=== PATIENT | female | born 1980 | race Caucasian/White ===

== ENCOUNTER 2016-09-16 14:57 | Emergency (ER) | payer OTHER ==
[~2016-09-16] VITALS: Ht 170.2 cm; Wt 91.2 kg
[2016-09-16 15:07] VITALS: BP 106/60
--- NOTE | 2016-09-16 15:33 | PHYS DOC ---
Past Medical History Past Medical History: No Pertinent History Past Surgical History: No Surgical History Alcohol Use: Occasionally Drug Use: None Adult General Chief Complaint Chief Complaint: SORE THROAT HPI HPI Patient is a 36 year old female who presents with sore throat since yesterday. Patient is also complaining of subjective fevers. Review of Systems Review of Systems Constitutional: Subjective fevers Eyes: Denies change in visual acuity, redness, or eye pain [] HENT: sore throat [] Respiratory: Denies cough or shortness of breath [] Cardiovascular: No additional information not addressed in HPI [] GI: Denies abdominal pain, nausea, vomiting, bloody stools or diarrhea [] : Denies dysuria or hematuria [] Musculoskeletal: Denies back pain or joint pain [] Integument: Denies rash or skin lesions [] Neurologic: Denies headache, focal weakness or sensory changes [] Endocrine: Denies polyuria or polydipsia [] Current Medications Current Medications Current Medications Medications (Trade) Dose Ordered Sig/Sanna Start Time Stop Time Status Last Admin Dose Admin Dexamethasone Sodium Phosphate (Decadron) 10 mg 1X ONCE 09/16/16 15:45 09/16/16 15:46 Penicillin G Benzathine (Bicillin L-A) 1,200,000 unit 1X ONCE 09/16/16 15:45 09/16/16 15:46 Allergies Allergies Allergies Coded Allergies Type Severity Reaction Last Updated Verified No Known Drug Allergies 09/16/16 No Physical Exam Physical Exam Constitutional: Well developed, well nourished, no acute distress, non-toxic appearance. [] HENT: Normocephalic, atraumatic, bilateral external ears normal, oropharynx moist, no oral exudates, nose normal. [] posterior pharynx with mild erythema and exudate Eyes: PERRLA, EOMI, conjunctiva normal, no discharge. [] Neck: Normal range of motion, no tenderness, supple, no stridor. [] Cardiovascular:Heart rate regular rhythm, no murmur [] Lungs & Thorax: Bilateral breath sounds clear to auscultation [] Abdomen: Bowel sounds normal, soft, no tenderness, no masses, no pulsatile masses. [] Skin: Warm, dry, no erythema, no rash. [] Back: No tenderness, no CVA tenderness. [] Extremities: No tenderness, no cyanosis, no clubbing, ROM intact, no edema. [] Neurologic: Alert and oriented X 3, normal motor function, normal sensory function, no focal deficits noted. [] Psychologic: Affect normal, judgement normal, mood normal. [] Current Patient Data Vital Signs Vital Signs Date Time Temp Pulse Resp B/P (MAP) Pulse Ox O2 Delivery O2 Flow Rate FiO2 09/16/16 15:07 97.6 79 18 98 Room Air 97.6 EKG EKG [] Radiology/Procedures Radiology/Procedures [] Course & Med Decision Making Course & Med Decision Making Pertinent Labs and Imaging studies reviewed. (See chart for details) Patient is in the ED with pharyngitis. She was given Bicillin shot and Decadron. Tylenol recommended every 4 Motrin every 6 hours as needed for fever. Follow-up with primary care doctor in one week. Dragon Disclaimer Dragon Disclaimer This electronic medical record was generated, in whole or in part, using a voice recognition dictation system. Departure Departure Impression: Primary Impression: Acute bacterial pharyngitis Additional Impression: Fever Disposition: 01 HOME, SELF-CARE Condition: STABLE Referrals: NO PCP (PCP) Follow-up with the primary care doctor in 1-2 weeks Patient Instructions: Fever, Adult, Viral and Bacterial Pharyngitis Additional Instructions: You were seen for pharyngitis. Use saltwater gargles. Take Tylenol or Motrin for pain or fever. Follow-up with the primary care doctor in 1-2 weeks. Please come back to the ED if symptoms worsen. Problem Qualifiers Additional Impression: Fever Fever type: unspecified Qualified Codes: R50.9 - Fever, unspecified MUTUNGAVIKI [employer] Sep 16, 2016 15:33
[2016-09-16] MEDS ORDERED: DEXAMETHASONE SOD PHOS 20 MG/5 ML VIAL. IM ONE (15:45)
[2016-09-16] MEDS ORDERED: PENICILLIN G BENZATHINE LA 1,200,000 UNIT/2 ML DISP.SYRIN. IM ONE (15:45)
== END 2016-09-16 15:39 | disposition home or self-care (01) ==
LOC: ER 14:57
DX: J02.8 Acute pharyngitis due to other specified organisms (principal); B96.89 Other specified bacterial agents as the cause of diseases classified elsewhere; R50.9 Fever, unspecified
CPT/HCPCS: 96372; 99284; J0561; J1100

== ENCOUNTER → 2017-03-18 | Outpatient (CLI) | payer OTHER | END | disposition home or self-care (01) | LOC: SPEC 16:09 | DX: N93.9 Abnormal uterine and vaginal bleeding, unspecified (principal) | CPT/HCPCS: 87623; 88175 ==

== ENCOUNTER → 2017-03-18 | Outpatient (CLI) | payer OTHER ==
[2017-03-18 13:10] LABS: ALBUMIN 3.9 g/dL (3.4-5.0); CALCIUM 9.1 mg/dL (8.5-10.1); CREATININE 0.8 mg/dL (0.6-1.0); GFR 80.7; POTASSIUM 3.9 mmol/L (3.5-5.1); TOTAL BILIRUBIN 0.3 mg/dL (0.2-1.0); TOTAL PROTEIN 7.8 g/dL (6.4-8.2)
[2017-03-18 13:20] LABS: BASO % 0 % (0-3); EOS % 1 % (0-3); HEMATOCRIT 37.9 % (36.0-47.0); HEMOGLOBIN 12.7 g/dL (12.0-15.5); LYMPH # 2.2 x10^3/uL (1.0-4.8); LYMPH % 22 % (24-48); MEAN CORPUSCULAR HEMOGLOBIN 29 pg (25-35); MEAN CORPUSCULAR HGB CONC 34 g/dL (31-37); MEAN CORPUSCULAR VOLUME 86 fL (79-100); MONO % 6 % (0-9); NEUT % 71 % (31-73); PLATELET COUNT 310 x10^3/uL (140-400); RED BLOOD COUNT 4.42 x10^6/uL (3.50-5.40); RED CELL DISTRIBUTION WIDTH 13.5 % (11.5-14.5)
[2017-03-18 14:03] LABS: FREE T4 0.95 ng/dL (0.76-1.46)
--- NOTE | 2017-03-18 17:19 | RAD ---
Pelvic ultrasound to include transabdominal and transvaginal imaging 03/18/2017 Clinical history: Abnormal uterine bleeding. Technique: Using the distended urinary bladder as a sonographic window, a real-time ultrasound examination of the pelvis was performed. Additionally in attempt to better evaluate the uterus and adnexa, a transvaginal ultrasound study was performed. Multiple images were obtained. Findings: Comparison is made to patient's CT scan of the pelvis dated 07/17/2008. The uterus is enlarged. It measures 13.3 x 5.3 x 4.5 cm in longitudinal, transverse, and AP dimensions. The endometrial complex measures 2 mm in thickness which is within normal limits. A rounded hypoechoic mass is seen projecting superiorly from the fundus of the uterus. This measures 5.7 cm in greatest diameter. This is consistent with a uterine fibroid. No additional abnormality of the uterus is seen. Both ovaries are within normal limits in size. The right ovary measures 2.1 x 3.4 x 2.3 cm in size. The left ovary measures 3.0 x 2.0 x 1.3 cm in size. No adnexal mass is seen. Small follicles are seen involving both ovaries. No free fluid is noted. Impression: 5.7 cm uterine fibroid.
== END | disposition home or self-care (01) ==
LOC: LAB 12:20
DX: D25.9 Leiomyoma of uterus, unspecified (principal); N93.9 Abnormal uterine and vaginal bleeding, unspecified
CPT/HCPCS: 36415; 76830; 76856; 80053; 84439; 84443; 84702; 85025

== ENCOUNTER 2017-04-30 05:57 | Observation (INO) | payer OTHER ==
[2017-04-30] MEDS: IV RINGERS,LACTATED 1000ML 1,000 ML IV ×6 (00:30→14:29)
[2017-04-30] MEDS ORDERED: METHYLENE BLUE 1% 10 ML VIAL. ×2 (06:36)
[2017-04-30] MEDS ORDERED: SURGICEL HEMOSTAT 4X8 EACH. ×2 (06:37)
[2017-04-30] MEDS ORDERED: LIDOCAINE 1%/EPI 1:100,000 20 ML VIAL. ×2 (06:37)
[2017-04-30] MEDS ORDERED: ESTROGENS, CONJ VAGINAL CREAM 30GM TUBE. ×2 (06:37)
[2017-04-30 06:53] LABS: ADD MAN DIFF? NO
[2017-04-30 06:57] LABS: BASO % 1 % (0-3); EOS # 0.1 x10^3/uL (0.0-0.7); EOS % 3 % (0-3); HEMATOCRIT 36.4 % (36.0-47.0); LYMPH # 1.8 x10^3/uL (1.0-4.8); LYMPH % 34 % (24-48); MEAN CORPUSCULAR HEMOGLOBIN 28 pg (25-35); MEAN CORPUSCULAR HGB CONC 33 g/dL (31-37); MEAN CORPUSCULAR VOLUME 85 fL (79-100); MONO # 0.5 x10^3/uL (0.0-1.1); MONO % 10 % (0-9); NEUT # 2.8 x10^3uL (1.8-7.7); NEUT % 53 % (31-73); PLATELET COUNT 280 x10^3/uL (140-400); RED BLOOD COUNT 4.28 x10^6/uL (3.50-5.40); RED CELL DISTRIBUTION WIDTH 15.6 % (11.5-14.5); WHITE BLOOD COUNT 5.2 x10^3/uL (4.0-11.0)
[2017-04-30] MEDS ORDERED: FAMOTIDINE 20 MG/2 ML VIAL ×2 (07:25)
[2017-04-30] MEDS ORDERED: ONDANSETRON PF 4 MG/2 ML VIAL. ×2 (07:25)
[2017-04-30] MEDS ORDERED: PROPOFOL 20 ML IV ×2 (07:25)
[2017-04-30] MEDS ORDERED: DEXAMETHASONE SOD PHOS 20 MG/5 ML VIAL. ×2 (07:25)
[2017-04-30] MEDS ORDERED: LIDOCAINE 2% PF Vial for OR 5 ML VIAL. ×2 (07:25)
[2017-04-30] MEDS ORDERED: fentaNYL PF VIAL 100 MCG/2 ML VIAL ×8 (07:27→10:57)
[2017-04-30] MEDS ORDERED: MIDAZOLAM HCL/PF 2 MG/2 ML VIAL. ×2 (07:27)
[2017-04-30] MEDS ORDERED: ROCURONIUM 50 MG/5 ML VIAL. ×2 (07:27)
[2017-04-30] MEDS ORDERED: KETOROLAC 30 MG/ML INJ FOR OR. INJ ×2 (07:28)
[2017-04-30 08:00] LABS: NEG OBC UR NEG; POS OBC UR POS; U PREG PATIENT NEGATIVE (NEG)
[2017-04-30] MEDS ORDERED: diphenhydrAMINE 50 MG/ML VIAL ×2 (08:35)
[2017-04-30] MEDS: BUPIVACAINE-EPI 0.25%-1:200000 50 ML VIAL. ×2 (08:41)
[2017-04-30] MEDS ORDERED: GLYCOPYRROLATE 1 MG/5 ML VIAL. ×2 (10:09)
[2017-04-30] MEDS ORDERED: PHENYLEPHRINE in 0.9% NACL PF 1 MG/10 ML SYRINGE. IV (10:09)
[2017-04-30] MEDS ORDERED: NEOSTIGMINE METHYLSULFATE 5 MG/5 ML SYRINGE. ×2 (10:10)
[2017-04-30] MEDS ORDERED: SEVOFLURANE > 120 MINUTES. IH ×2 (10:10)
[2017-04-30] MEDS ORDERED: PROCHLORPERAZINE 10 MG/2 ML VIAL. ×2 (10:57)
[2017-04-30] MEDS ORDERED: diphenhydrAMINE 50 MG/ML VIAL IV ×2 (11:00)
[2017-04-30] MEDS ORDERED: 0.9 % SODIUM CHLORIDE 10 ML DISP.SYRIN. IV ×2 (11:00)
[2017-04-30] MEDS ORDERED: diphenhydrAMINE HCL 25 MG CAPSULE PO ×2 (11:00)
[2017-04-30] MEDS ORDERED: fentaNYL PF VIAL 100 MCG/2 ML VIAL IV ×2 (11:00)
[2017-04-30] MEDS ORDERED: DEXTROSE 50% 25 GM / 50ML DISP.SYRIN. IV ×2 (11:00)
[2017-04-30] MEDS ORDERED: LIDOCAINE 1% PF 2 ML VIAL. ID ×2 (11:00)
[2017-04-30] MEDS ORDERED: MORPHINE SULFATE 2 MG/ML DISP.SYRIN. IV ×2 (11:00)
[2017-04-30] MEDS ORDERED: CALCIUM CARBONATE 500 MG TAB.CHEW PO ×2 (11:00)
[2017-04-30] MEDS ORDERED: HYDROmorphone 2 MG/ML VIAL IV ×2 (11:00)
[2017-04-30] MEDS ORDERED: ONDANSETRON PF 4 MG/2 ML VIAL. IV ×4 (11:00)
[2017-04-30] MEDS ORDERED: PROCHLORPERAZINE 10 MG/2 ML VIAL. IV ×2 (11:00)
[2017-04-30] MEDS ORDERED: SIMETHICONE 80 MG TAB.CHEW PO ×2 (11:00)
[2017-04-30] MEDS ORDERED: ZOLPIDEM 5 MG TABLET. PO ×2 (11:00)
[2017-04-30] MEDS: fentaNYL PF VIAL 100 MCG/2 ML VIAL IV ×4 (11:24→12:00)
[2017-04-30] MEDS: PROCHLORPERAZINE 10 MG/2 ML VIAL. IV ×2 (11:25)
[2017-04-30] MEDS: OPIUM/BELLADONNA 30/16.2MG SUPP.RECT. PR ×2 (12:46)
[2017-04-30] MEDS: KETOROLAC 30 MG/ML INJ. IV ×2 (13:26)
[2017-04-30] MEDS: GABAPENTIN 300 MG CAPSULE. PO ×4 (15:20→22:00)
[2017-04-30] MEDS: oxyCODONE/APAP 5/325 1 TAB TABLET PO ×4 (15:20→21:50)
[2017-05-01] MEDS: oxyCODONE/APAP 5/325 1 TAB TABLET PO ×6 (02:18→14:27)
[2017-05-01 06:16] LABS: ADD MAN DIFF? NO
[2017-05-01 06:24] LABS: BASO % 0 % (0-3); EOS % 0 % (0-3); HEMATOCRIT 32.3 % (36.0-47.0); HEMOGLOBIN 10.8 g/dL (12.0-15.5); LYMPH # 2.4 x10^3/uL (1.0-4.8); LYMPH % 23 % (24-48); MEAN CORPUSCULAR HEMOGLOBIN 28 pg (25-35); MEAN CORPUSCULAR HGB CONC 33 g/dL (31-37); MEAN CORPUSCULAR VOLUME 84 fL (79-100); MONO # 0.7 x10^3/uL (0.0-1.1); MONO % 7 % (0-9); NEUT # 7.2 x10^3uL (1.8-7.7); NEUT % 69 % (31-73); PLATELET COUNT 252 x10^3/uL (140-400); RED BLOOD COUNT 3.85 x10^6/uL (3.50-5.40); RED CELL DISTRIBUTION WIDTH 15.5 % (11.5-14.5); WHITE BLOOD COUNT 10.4 x10^3/uL (4.0-11.0)
[2017-05-01] MEDS: GABAPENTIN 300 MG CAPSULE. PO ×4 (06:35→14:24)
== END 2017-05-01 14:30 | disposition home or self-care (01) ==
LOC: SURG 05:57 → 3 NORTH 11:00
DX: D25.9 Leiomyoma of uterus, unspecified (principal); N87.1 Moderate cervical dysplasia; Z87.410 Personal history of cervical dysplasia
CPT/HCPCS: 36415; 81025; 85025; 86850; 86900; 86901; 88309; 96374; A4215; G0378; G0379; J0690; J0780; J1100; J1200; J1885; J2250; J2370; J2405; J2704; J2710; J3010; J3490; J7030; J7120; Q9968; S0028

== ENCOUNTER → 2017-05-22 | Outpatient (CLI) | payer OTHER ==
[2017-05-22] MEDS: GADOBUTROL 10 MMOL/10 ML VIAL IV (16:18)
== END | disposition home or self-care (01) ==
LOC: MRI 15:30
DX: C53.9 Malignant neoplasm of cervix uteri, unspecified (principal)
CPT/HCPCS: 72197; A9585

== ENCOUNTER → 2017-06-04 | Outpatient (CLI) | payer OTHER | END | disposition home or self-care (01) | LOC: PETSC 12:37 | DX: C53.9 Malignant neoplasm of cervix uteri, unspecified (principal) | CPT/HCPCS: 78815; A9552 ==

== ENCOUNTER → 2017-06-11 | Outpatient (CLI) | payer OTHER ==
[~2017-06-11] MED LIST: LIDOCAINE 2%/EPI 1:100,000 20 ML VIAL.; MIDAZOLAM HCL/PF 2 MG/2 ML VIAL.; fentaNYL PF VIAL 100 MCG/2 ML VIAL
[2017-06-11 10:25] LABS: ADD MAN DIFF? NO
[2017-06-11 10:29] LABS: BASO % 1 % (0-3); EOS # 0.2 x10^3/uL (0.0-0.7); EOS % 3 % (0-3); HEMATOCRIT 37.4 % (36.0-47.0); HEMOGLOBIN 12.3 g/dL (12.0-15.5); LYMPH # 1.6 x10^3/uL (1.0-4.8); LYMPH % 26 % (24-48); MEAN CORPUSCULAR HEMOGLOBIN 27 pg (25-35); MEAN CORPUSCULAR HGB CONC 33 g/dL (31-37); MEAN CORPUSCULAR VOLUME 83 fL (79-100); MONO # 0.4 x10^3/uL (0.0-1.1); MONO % 7 % (0-9); NEUT % 64 % (31-73); PLATELET COUNT 307 x10^3/uL (140-400); RED BLOOD COUNT 4.53 x10^6/uL (3.50-5.40); RED CELL DISTRIBUTION WIDTH 15.1 % (11.5-14.5); WHITE BLOOD COUNT 6.2 x10^3/uL (4.0-11.0)
[2017-06-11 10:36] LABS: ANION GAP 7 (6-14); BLOOD UREA NITROGEN 13 mg/dL (7-20); CALCIUM 9.1 mg/dL (8.5-10.1); CARBON DIOXIDE 27 mmol/L (21-32); CHLORIDE 105 mmol/L (98-107); CREATININE 0.8 mg/dL (0.6-1.0); GFR 80.7; GLUCOSE 105 mg/dL (70-99); POTASSIUM 3.9 mmol/L (3.5-5.1); SODIUM 139 mmol/L (136-145)
[2017-06-11 10:43] LABS: INR 1.1 (0.8-1.1); PARTIAL THROMBOPLASTIN TIME 33 SEC (24-38); PROTHROMBIN TIME PATIENT 13.2 SEC (11.7-14.0)
[2017-06-11] MEDS: MIDAZOLAM HCL/PF 2 MG/2 ML VIAL. IV (10:45)
[2017-06-11] MEDS: fentaNYL PF VIAL 100 MCG/2 ML VIAL IV (10:45)
[2017-06-11] MEDS: LIDOCAINE 2%/EPI 1:100,000 20 ML VIAL. IJ ×2 (11:00)
== END | disposition home or self-care (01) ==
LOC: INTRAD 09:57
DX: Z45.2 Encounter for adjustment and management of vascular access device (principal); C53.9 Malignant neoplasm of cervix uteri, unspecified; F17.210 Nicotine dependence, cigarettes, uncomplicated; Z98.890 Other specified postprocedural states; Z90.710 Acquired absence of both cervix and uterus; Z79.899 Other long term (current) drug therapy
CPT/HCPCS: 36415; 36561; 76937; 77001; 80048; 85025; 85610; 85730; 99152; 99153; A4215; C1751; C1892; J0690; J1644; J2250; J3010; J3490

== ENCOUNTER → 2017-06-16 | Outpatient (CLI) | payer OTHER ==
[2017-06-16 07:33] LABS: ADD MAN DIFF? NO
[2017-06-16 07:42] LABS: BASO % 1 % (0-3); EOS # 0.2 x10^3/uL (0.0-0.7); EOS % 2 % (0-3); HEMATOCRIT 37.9 % (36.0-47.0); HEMOGLOBIN 12.5 g/dL (12.0-15.5); LYMPH # 2.1 x10^3/uL (1.0-4.8); LYMPH % 28 % (24-48); MEAN CORPUSCULAR HEMOGLOBIN 27 pg (25-35); MEAN CORPUSCULAR HGB CONC 33 g/dL (31-37); MEAN CORPUSCULAR VOLUME 83 fL (79-100); MONO # 0.7 x10^3/uL (0.0-1.1); MONO % 9 % (0-9); NEUT # 4.4 x10^3uL (1.8-7.7); NEUT % 59 % (31-73); PLATELET COUNT 315 x10^3/uL (140-400); RED BLOOD COUNT 4.58 x10^6/uL (3.50-5.40); RED CELL DISTRIBUTION WIDTH 14.9 % (11.5-14.5); WHITE BLOOD COUNT 7.4 x10^3/uL (4.0-11.0)
[2017-06-16 08:22] LABS: ALBUMIN 3.2 g/dL (3.4-5.0); ALBUMIN/GLOBULIN RATIO 0.7 (1.0-1.7); ALK PHOS 83 U/L (46-116); ALT (SGPT) 20 U/L (14-59); ANION GAP 11 (6-14); AST (SGOT) 19 U/L (15-37); BLOOD UREA NITROGEN 15 mg/dL (7-20); BUN/CREATININE RATIO 21 (6-20); CALCIUM 8.9 mg/dL (8.5-10.1); CARBON DIOXIDE 23 mmol/L (21-32); CHLORIDE 106 mmol/L (98-107); CREATININE 0.7 mg/dL (0.6-1.0); GFR 94.2; GLUCOSE 125 mg/dL (70-99); POTASSIUM 4.3 mmol/L (3.5-5.1); SODIUM 140 mmol/L (136-145); TOTAL BILIRUBIN 0.3 mg/dL (0.2-1.0); TOTAL PROTEIN 7.6 g/dL (6.4-8.2)
== END | disposition home or self-care (01) ==
LOC: LAB 07:20
DX: C53.8 Malignant neoplasm of overlapping sites of cervix uteri (principal)
CPT/HCPCS: 36415; 80053; 85025

== ENCOUNTER 2017-06-24 00:36 | Emergency (ER) | payer OTHER ==
[2017-06-24] MEDS ORDERED: fentaNYL PF VIAL 100 MCG/2 ML VIAL (01:11)
[2017-06-24] MEDS ORDERED: ONDANSETRON PF 4 MG/2 ML VIAL. (01:13)
[2017-06-24] MEDS: fentaNYL PF VIAL 100 MCG/2 ML VIAL IV ×2 (01:17→02:24)
[2017-06-24] MEDS: ONDANSETRON PF 4 MG/2 ML VIAL. IV (01:19)
[2017-06-24] MEDS ORDERED: CONTRAST GIVEN MC (01:30)
[2017-06-24] MEDS: IOHEXOL 300 MG/ML 100ML VIAL. IV (01:38)
[2017-06-24 01:42] LABS: ADD MAN DIFF? NO
[2017-06-24] MEDS: MORPHINE SULFATE 4 MG/ML DISP.SYRIN. IV (01:45)
[2017-06-24 01:50] LABS: BASO % 0 % (0-3); EOS # 0.1 x10^3/uL (0.0-0.7); EOS % 2 % (0-3); HEMATOCRIT 38.6 % (36.0-47.0); HEMOGLOBIN 12.8 g/dL (12.0-15.5); LYMPH # 1.1 x10^3/uL (1.0-4.8); LYMPH % 19 % (24-48); MEAN CORPUSCULAR HEMOGLOBIN 27 pg (25-35); MEAN CORPUSCULAR HGB CONC 33 g/dL (31-37); MEAN CORPUSCULAR VOLUME 83 fL (79-100); MONO # 0.5 x10^3/uL (0.0-1.1); MONO % 8 % (0-9); NEUT # 4.2 x10^3uL (1.8-7.7); NEUT % 71 % (31-73); PLATELET COUNT 348 x10^3/uL (140-400); RED BLOOD COUNT 4.69 x10^6/uL (3.50-5.40); RED CELL DISTRIBUTION WIDTH 14.4 % (11.5-14.5); WHITE BLOOD COUNT 5.9 x10^3/uL (4.0-11.0)
[2017-06-24] MEDS: IV NORMAL SALINE 1000ML BAG 1,000 ML IV (01:54)
[2017-06-24 02:04] LABS: ANION GAP 11 (6-14); BLOOD UREA NITROGEN 17 mg/dL (7-20); BUN/CREATININE RATIO 21 (6-20); CALCIUM 9.2 mg/dL (8.5-10.1); CARBON DIOXIDE 27 mmol/L (21-32); CHLORIDE 101 mmol/L (98-107); CREATININE 0.8 mg/dL (0.6-1.0); GFR 80.7; GLUCOSE 108 mg/dL (70-99); POTASSIUM 3.6 mmol/L (3.5-5.1); SODIUM 139 mmol/L (136-145)
[2017-06-24 02:09] LABS: ALBUMIN 3.4 g/dL (3.4-5.0); ALBUMIN/GLOBULIN RATIO 0.8 (1.0-1.7); ALK PHOS 79 U/L (46-116); ALT (SGPT) 20 U/L (14-59); AST (SGOT) 13 U/L (15-37); TOTAL BILIRUBIN 0.7 mg/dL (0.2-1.0); TOTAL PROTEIN 7.8 g/dL (6.4-8.2)
[2017-06-24] MEDS ORDERED: IV NORMAL SALINE 1000ML BAG 1,000 ML IV (02:15)
[2017-06-24 03:06] LABS: BILIRUBIN,URINE NEGATIVE (NEG); CLARITY,URINE CLEAR; COLOR,URINE YELLOW; GLUCOSE,URINE NEGATIVE (NEG); NITRITE,URINE NEGATIVE (NEG); PROTEIN,URINE NEGATIVE (NEG-TRACE); UROBILINOGEN,URINE 0.2 mg/dL (0.2 mg/dL)
[2017-06-24 03:10] LABS: BACTERIA,URINE FEW /HPF (0-FEW); RBC,URINE OCC /HPF (0-2); SQUAMOUS EPITHELIAL CELL,UR FEW /LPF
== END 2017-06-24 04:22 | disposition home or self-care (01) ==
LOC: ER 00:36
DX: R10.2 Pelvic and perineal pain (principal); R10.31 Right lower quadrant pain; K62.89 Other specified diseases of anus and rectum; Z90.710 Acquired absence of both cervix and uterus
CPT/HCPCS: 36415; 74177; 80053; 81001; 85025; 96361; 96374; 96375; 96376; 99285-25; J2270; J2405; J3010; J7030; Q9967

== ENCOUNTER → 2017-07-01 | Outpatient (CLI) | payer OTHER ==
[2017-07-01 10:05] LABS: ADD MAN DIFF? NO
[2017-07-01 10:21] LABS: ALBUMIN/GLOBULIN RATIO 0.7 (1.0-1.7); ALK PHOS 77 U/L (46-116); ALT (SGPT) 15 U/L (14-59); ANION GAP 7 (6-14); BLOOD UREA NITROGEN 11 mg/dL (7-20); BUN/CREATININE RATIO 14 (6-20); CALCIUM 8.8 mg/dL (8.5-10.1); CARBON DIOXIDE 30 mmol/L (21-32); CHLORIDE 102 mmol/L (98-107); CREATININE 0.8 mg/dL (0.6-1.0); GFR 80.7; GLUCOSE 98 mg/dL (70-99); POTASSIUM 3.4 mmol/L (3.5-5.1); SODIUM 139 mmol/L (136-145); TOTAL BILIRUBIN 0.4 mg/dL (0.2-1.0); TOTAL PROTEIN 7.1 g/dL (6.4-8.2)
[2017-07-01 10:24] LABS: BASO % 0 % (0-3); EOS % 0 % (0-3); HEMATOCRIT 36.7 % (36.0-47.0); HEMOGLOBIN 12.2 g/dL (12.0-15.5); LYMPH # 0.5 x10^3/uL (1.0-4.8); LYMPH % 10 % (24-48); MEAN CORPUSCULAR HEMOGLOBIN 28 pg (25-35); MEAN CORPUSCULAR HGB CONC 33 g/dL (31-37); MEAN CORPUSCULAR VOLUME 84 fL (79-100); MONO # 0.5 x10^3/uL (0.0-1.1); MONO % 9 % (0-9); NEUT # 4.3 x10^3uL (1.8-7.7); NEUT % 80 % (31-73); PLATELET COUNT 176 x10^3/uL (140-400); RED BLOOD COUNT 4.38 x10^6/uL (3.50-5.40); RED CELL DISTRIBUTION WIDTH 14.7 % (11.5-14.5); WHITE BLOOD COUNT 5.4 x10^3/uL (4.0-11.0)
[2017-07-01 10:34] LABS: AST (SGOT) 11 U/L (15-37)
== END | disposition home or self-care (01) ==
LOC: LAB 09:53
DX: C53.8 Malignant neoplasm of overlapping sites of cervix uteri (principal); Z79.899 Other long term (current) drug therapy; Z87.891 Personal history of nicotine dependence
CPT/HCPCS: 36415; 80053; 85025

== ENCOUNTER 2017-07-07 14:32 | Inpatient (IN) | payer OTHER ==
[2017-07-07 14:54] LABS: URINE HCG POC HCG NEGATIVE (Negative)
[2017-07-07 15:14] LABS: ADD MAN DIFF? NO
[2017-07-07 15:17] LABS: BASO % 0 % (0-3); EOS % 0 % (0-3); HEMATOCRIT 40.5 % (36.0-47.0); HEMOGLOBIN 13.6 g/dL (12.0-15.5); LYMPH # 0.5 x10^3/uL (1.0-4.8); LYMPH % 10 % (24-48); MEAN CORPUSCULAR HEMOGLOBIN 28 pg (25-35); MEAN CORPUSCULAR HGB CONC 34 g/dL (31-37); MEAN CORPUSCULAR VOLUME 84 fL (79-100); MONO # 0.3 x10^3/uL (0.0-1.1); MONO % 7 % (0-9); NEUT # 3.7 x10^3uL (1.8-7.7); NEUT % 83 % (31-73); PLATELET COUNT 171 x10^3/uL (140-400); RED BLOOD COUNT 4.84 x10^6/uL (3.50-5.40); RED CELL DISTRIBUTION WIDTH 15.2 % (11.5-14.5); WHITE BLOOD COUNT 4.5 x10^3/uL (4.0-11.0)
[2017-07-07 15:19] LABS: BILIRUBIN,URINE NEGATIVE (NEG); CLARITY,URINE CLEAR; COLOR,URINE YELLOW; GLUCOSE,URINE NEGATIVE (NEG); NITRITE,URINE NEGATIVE (NEG); PH,URINE 5.5; PROTEIN,URINE NEGATIVE (NEG-TRACE); UROBILINOGEN,URINE 0.2 mg/dL (0.2 mg/dL)
[2017-07-07] MEDS: IV NORMAL SALINE 1000ML BAG 1,000 ML IV ×4 (15:19→19:45)
[2017-07-07] MEDS: ONDANSETRON PF 4 MG/2 ML VIAL. IV (15:24)
[2017-07-07] MEDS: fentaNYL PF VIAL 100 MCG/2 ML VIAL IV ×3 (15:25→21:22)
[2017-07-07 15:28] LABS: BACTERIA,URINE MANY /HPF (0-FEW); RBC,URINE RARE /HPF (0-2); SQUAMOUS EPITHELIAL CELL,UR MANY /LPF
[2017-07-07 15:33] LABS: ALBUMIN 3.3 g/dL (3.4-5.0); ALK PHOS 81 U/L (46-116); ALT (SGPT) 23 U/L (14-59); ANION GAP 10 (6-14); AST (SGOT) 14 U/L (15-37); BLOOD UREA NITROGEN 18 mg/dL (7-20); CALCIUM 8.6 mg/dL (8.5-10.1); CARBON DIOXIDE 28 mmol/L (21-32); CHLORIDE 103 mmol/L (98-107); CREATININE 0.8 mg/dL (0.6-1.0); DIRECT BILIRUBIN < 0.1 mg/dL (0.0-0.2); GFR 80.7; GLUCOSE 109 mg/dL (70-99); LIPASE 123 U/L (73-393); SODIUM 141 mmol/L (136-145); TOTAL BILIRUBIN 0.2 mg/dL (0.2-1.0); TOTAL PROTEIN 7.4 g/dL (6.4-8.2)
[2017-07-07 15:34] LABS: TROPONINI < 0.017 ng/mL (0.000-0.055)
[2017-07-07] MEDS ORDERED: ONDANSETRON PF 4 MG/2 ML VIAL. IV (16:15)
[2017-07-07] MEDS ORDERED: MORPHINE SULFATE 4 MG/ML DISP.SYRIN. IV (16:15)
[2017-07-07] MEDS ORDERED: IV NORMAL SALINE 500ML BAG 500 ML IV (19:15)
[2017-07-07] MEDS ORDERED: VANCOMYCIN PER PHARMACY MC (19:15)
[2017-07-07] MEDS ORDERED: VASOPRESSIN 40 UNIT in IV DEXTROSE 5% 100 ML IV (19:15)
[2017-07-07] MEDS ORDERED: NOREPINEPHRIN PREMIX 250 ML IV (19:15)
[2017-07-07] MEDS ORDERED: LIDOCAINE/PRILOCAINE TOPICAL CREAM 5GM TUBE. TP (19:30)
[2017-07-07] MEDS: PIPERACILLIN/TAZOBACTAM 4.5 GM in IV NORMAL SALINE 100ML 100 ML IV (19:30)
[2017-07-07] MEDS: POTASSIUM CHLORIDE 20MEQ 50 ML IV ×2 (19:30→20:30)
[2017-07-07] MEDS ORDERED: PIPERACILLIN/TAZOBACTAM 3.375 GM in IV NORMAL SALINE 50ML 50 ML IV (19:30)
[2017-07-07 19:33] LABS: INR 0.9 (0.8-1.1); PARTIAL THROMBOPLASTIN TIME 26 SEC (24-38); PROTHROMBIN TIME PATIENT 11.6 SEC (11.7-14.0)
[2017-07-07] MEDS: VANCOMYCIN 2 GM in IV 1/2 NORMAL SALINE 500 ML IV (20:00)
[2017-07-07] MEDS: oxyCODONE IR 5 MG TABLET PO (21:23)
[2017-07-08] MEDS: oxyCODONE IR 5 MG TABLET PO ×4 (00:57→22:06)
[2017-07-08] MEDS: POTASSIUM CHLORIDE 20 MEQ TABLET.ER. PO (00:57)
[2017-07-08] MEDS: IV NORMAL SALINE 1000ML BAG 1,000 ML IV (02:36)
[2017-07-08] MEDS: PIPERACILLIN/TAZOBACTAM 4.5 GM in IV NORMAL SALINE 100ML 100 ML IV ×4 (06:00→17:38)
[2017-07-08] MEDS: PROCHLORPERAZINE 5 MG TABLET. PO ×2 (07:38→22:35)
[2017-07-08] MEDS: ESTRADIOL 1 MG TABLET. PO (07:38)
[2017-07-08 07:41] LABS: ADD MAN DIFF? NO
[2017-07-08 07:44] LABS: BASO % 0 % (0-3); EOS % 0 % (0-3); HEMATOCRIT 32.5 % (36.0-47.0); HEMOGLOBIN 10.9 g/dL (12.0-15.5); LYMPH # 0.3 x10^3/uL (1.0-4.8); LYMPH % 11 % (24-48); MEAN CORPUSCULAR HEMOGLOBIN 28 pg (25-35); MEAN CORPUSCULAR HGB CONC 34 g/dL (31-37); MEAN CORPUSCULAR VOLUME 83 fL (79-100); MONO # 0.3 x10^3/uL (0.0-1.1); MONO % 8 % (0-9); NEUT # 2.7 x10^3uL (1.8-7.7); NEUT % 81 % (31-73); PLATELET COUNT 115 x10^3/uL (140-400); RED CELL DISTRIBUTION WIDTH 15.4 % (11.5-14.5); WHITE BLOOD COUNT 3.3 x10^3/uL (4.0-11.0)
[2017-07-08 08:08] LABS: ANION GAP 9 (6-14); BLOOD UREA NITROGEN 11 mg/dL (7-20); CALCIUM 8.4 mg/dL (8.5-10.1); CARBON DIOXIDE 24 mmol/L (21-32); CHLORIDE 105 mmol/L (98-107); CREATININE 0.7 mg/dL (0.6-1.0); GFR 94.2; GLUCOSE 105 mg/dL (70-99); SODIUM 138 mmol/L (136-145)
[2017-07-08] MEDS ORDERED: DIPHENOXYLATE/ATROPINE TABLET. PO (09:00)
[2017-07-08] MEDS ORDERED: OLANZAPINE 10 MG PO (09:00)
[2017-07-08] MEDS ORDERED: OLANZapine 5 MG TABLET PO (10:00)
[2017-07-08] MEDS: ENOXAPARIN 40 MG/0.4 ML SYRINGE. SQ (10:00)
[2017-07-08] MEDS: ONDANSETRON ODT 4 MG TAB.RAPDIS. PO (18:05)
[2017-07-08] MEDS: LOPERAMIDE 2 MG CAPSULE PO (22:06)
[2017-07-09] MEDS: fentaNYL PF VIAL 100 MCG/2 ML VIAL IV (01:53)
[2017-07-09] MEDS: ENOXAPARIN 40 MG/0.4 ML SYRINGE. SQ (08:23)
[2017-07-09] MEDS: PROCHLORPERAZINE 5 MG TABLET. PO (08:25)
[2017-07-09] MEDS: ESTRADIOL 1 MG TABLET. PO (08:26)
[2017-07-09] MEDS: DEXAMETHASONE 4 MG TABLET PO (08:26)
[2017-07-09] MEDS: IV NORMAL SALINE 1000ML BAG 1,000 ML IV (08:35)
[2017-07-09 08:46] LABS: ADD MAN DIFF? NO
[2017-07-09 08:59] LABS: BASO % 0 % (0-3); EOS % 0 % (0-3); HEMATOCRIT 35.7 % (36.0-47.0); HEMOGLOBIN 12.1 g/dL (12.0-15.5); LYMPH # 0.3 x10^3/uL (1.0-4.8); LYMPH % 13 % (24-48); MEAN CORPUSCULAR HEMOGLOBIN 28 pg (25-35); MEAN CORPUSCULAR HGB CONC 34 g/dL (31-37); MEAN CORPUSCULAR VOLUME 84 fL (79-100); MONO # 0.1 x10^3/uL (0.0-1.1); MONO % 6 % (0-9); NEUT # 1.9 x10^3uL (1.8-7.7); NEUT % 81 % (31-73); PLATELET COUNT 128 x10^3/uL (140-400); RED BLOOD COUNT 4.25 x10^6/uL (3.50-5.40); RED CELL DISTRIBUTION WIDTH 15.5 % (11.5-14.5); WHITE BLOOD COUNT 2.3 x10^3/uL (4.0-11.0)
[2017-07-09 09:24] LABS: ALBUMIN 2.8 g/dL (3.4-5.0); ALBUMIN/GLOBULIN RATIO 0.7 (1.0-1.7); ALK PHOS 67 U/L (46-116); ALT (SGPT) 18 U/L (14-59); ANION GAP 9 (6-14); AST (SGOT) 12 U/L (15-37); BLOOD UREA NITROGEN 7 mg/dL (7-20); BUN/CREATININE RATIO 9 (6-20); CALCIUM 8.6 mg/dL (8.5-10.1); CARBON DIOXIDE 26 mmol/L (21-32); CHLORIDE 102 mmol/L (98-107); CREATININE 0.8 mg/dL (0.6-1.0); GFR 80.7; GLUCOSE 132 mg/dL (70-99); POTASSIUM 3.7 mmol/L (3.5-5.1); SODIUM 137 mmol/L (136-145); TOTAL BILIRUBIN 0.4 mg/dL (0.2-1.0)
[2017-07-09] MEDS: SODIUM CHLORIDE 0.9% IV (12:20)
[2017-07-09] MEDS: FOSAPREPITANT IV (12:20)
[2017-07-09] MEDS: PALONOSETRON 0.25 MG/5 ML IV (12:22)
[2017-07-09] MEDS: NORMAL SALINE IV (12:49)
[2017-07-09] MEDS: CISPLATIN IV (12:49)
[2017-07-09] MEDS: MAGNESIUM SULFATE IV (14:37)
[2017-07-09] MEDS: POTASSIUM CHLORIDE IV (14:37)
[2017-07-09] MEDS: [UNRECOGNIZED DRUG - OTHER] IV (14:37)
[2017-07-09] MEDS: oxyCODONE IR 5 MG TABLET PO (15:41)
[2017-07-09] MEDS: HEPARIN PF 500 UNIT/5 ML DISP.SYRIN. IV (17:25)
[2017-07-10] MEDS ORDERED: DEXAMETHASONE 4 MG TABLET PO (09:00)
[2017-07-11] MEDS ORDERED: DEXAMETHASONE 4 MG TABLET PO (16:00)
[2017-07-13] MEDS ORDERED: DEXAMETHASONE 4 MG TABLET PO (09:00)
== END 2017-07-09 17:32 | disposition home or self-care (01) | DRG 872 ==
LOC: 6 SOUTH 07-08 07:50 → ER 14:32 → 1 WEST ICU 16:12
DX: A41.9 Sepsis, unspecified organism (principal); I95.9 Hypotension, unspecified; D69.6 Thrombocytopenia, unspecified; D70.1 Agranulocytosis secondary to cancer chemotherapy; E86.0 Dehydration; J98.11 Atelectasis; C53.9 Malignant neoplasm of cervix uteri, unspecified; D64.9 Anemia, unspecified; R19.7 Diarrhea, unspecified; E86.9 Volume depletion, unspecified; E87.6 Hypokalemia; G89.29 Other chronic pain; I10 Essential (primary) hypertension; T45.1X5A Adverse effect of antineoplastic and immunosuppressive drugs, initial encounter; Z82.49 Family history of ischemic heart disease and other diseases of the circulatory system; Z85.41 Personal history of malignant neoplasm of cervix uteri; Z90.710 Acquired absence of both cervix and uterus; Z92.3 Personal history of irradiation; Z90.722 Acquired absence of ovaries, bilateral; Z92.21 Personal history of antineoplastic chemotherapy
CPT/HCPCS: 36415; 71046; 77336; 77386; 80048; 80053; 80076; 81001; 81025; 83690; 84484; 85025; 85610; 85730; 87086; 96361; 96365; 96375; 99285; 99285-25; J1453; J2405; J2469; J3010; J3475; J7030; J7040; J8540; Q0162; Q0164

== ENCOUNTER → 2017-07-15 | Outpatient (CLI) | payer OTHER ==
[2017-07-15 20:27] LABS: BASO % 0 % (0-3); EOS % 0 % (0-3); HEMATOCRIT 36.1 % (36.0-47.0); HEMOGLOBIN 12.3 g/dL (12.0-15.5); LYMPH # 0.2 x10^3/uL (1.0-4.8); LYMPH % 13 % (24-48); MEAN CORPUSCULAR HEMOGLOBIN 28 pg (25-35); MEAN CORPUSCULAR HGB CONC 34 g/dL (31-37); MEAN CORPUSCULAR VOLUME 83 fL (79-100); MONO # 0.1 x10^3/uL (0.0-1.1); MONO % 7 % (0-9); NEUT # 1.6 x10^3uL (1.8-7.7); NEUT % 80 % (31-73); PLATELET COUNT 94 x10^3/uL (140-400); RED BLOOD COUNT 4.34 x10^6/uL (3.50-5.40); RED CELL DISTRIBUTION WIDTH 15.9 % (11.5-14.5)
[2017-07-15 20:36] LABS: ADD MAN DIFF? YES
[2017-07-15 20:39] LABS: % BANDS 1 % (0-9); % BASOS 1 % (0-3); % LYMPHS 11 % (24-48); % MONOS 8 % (0-10); % SEGS 79 % (35-66); NUCLEATED RBC 1; PLT ESTIMATE DECREASED (ADEQUATE)
[2017-07-15 20:41] LABS: ANISOCYTOSIS SLIGHT
== END | disposition home or self-care (01) ==
LOC: LAB 18:16
DX: C53.8 Malignant neoplasm of overlapping sites of cervix uteri (principal)
CPT/HCPCS: 36415; 85007; 85025

== ENCOUNTER 2017-07-22 19:51 | Emergency (ER) | payer OTHER ==
[2017-07-22] MEDS ORDERED: ONDANSETRON PF 4 MG/2 ML VIAL. (20:06)
[2017-07-22] MEDS: ONDANSETRON PF 4 MG/2 ML VIAL. IV (20:13)
[2017-07-22] MEDS: IV NORMAL SALINE 1000ML BAG 1,000 ML IV ×3 (20:17→21:00)
[2017-07-22 20:22] LABS: BASO % 1 % (0-3); EOS % 0 % (0-3); HEMATOCRIT 37.3 % (36.0-47.0); HEMOGLOBIN 12.9 g/dL (12.0-15.5); LYMPH # 0.1 x10^3/uL (1.0-4.8); LYMPH % 19 % (24-48); MEAN CORPUSCULAR HEMOGLOBIN 29 pg (25-35); MEAN CORPUSCULAR HGB CONC 35 g/dL (31-37); MEAN CORPUSCULAR VOLUME 82 fL (79-100); MONO # 0.1 x10^3/uL (0.0-1.1); MONO % 10 % (0-9); NEUT # 0.5 x10^3uL (1.8-7.7); NEUT % 70 % (31-73); PLATELET COUNT 70 x10^3/uL (140-400); RED BLOOD COUNT 4.53 x10^6/uL (3.50-5.40); RED CELL DISTRIBUTION WIDTH 15.6 % (11.5-14.5)
[2017-07-22 20:26] LABS: ADD MAN DIFF? YES; WHITE BLOOD COUNT 0.7 x10^3/uL (4.0-11.0)
[2017-07-22 20:29] LABS: ANION GAP 8 (6-14); BLOOD UREA NITROGEN 19 mg/dL (7-20); BUN/CREATININE RATIO 21 (6-20); CALCIUM 8.8 mg/dL (8.5-10.1); CARBON DIOXIDE 29 mmol/L (21-32); CHLORIDE 96 mmol/L (98-107); CREATININE 0.9 mg/dL (0.6-1.0); GFR 70.5; GLUCOSE 110 mg/dL (70-99); POTASSIUM 3.4 mmol/L (3.5-5.1); SODIUM 133 mmol/L (136-145)
[2017-07-22 20:35] LABS: ALBUMIN 3.2 g/dL (3.4-5.0); ALBUMIN/GLOBULIN RATIO 0.7 (1.0-1.7); ALK PHOS 72 U/L (46-116); ALT (SGPT) 25 U/L (14-59); AST (SGOT) 15 U/L (15-37); LIPASE 100 U/L (73-393); TOTAL BILIRUBIN 0.4 mg/dL (0.2-1.0); TOTAL PROTEIN 7.6 g/dL (6.4-8.2)
[2017-07-22] MEDS: PROCHLORPERAZINE 10 MG/2 ML VIAL. IV (20:56)
[2017-07-22 21:05] LABS: MAGNESIUM 1.5 mg/dL (1.8-2.4)
[2017-07-22 21:15] LABS: % BANDS 9 % (0-9); % LYMPHS 14 % (24-48); % MONOS 12 % (0-10); % SEGS 65 % (35-66); PLT ESTIMATE DECREASED (ADEQUATE)
[2017-07-22 21:16] LABS: ANISOCYTOSIS SLIGHT
[2017-07-22 22:14] LABS: BILIRUBIN,URINE NEGATIVE (NEG); CLARITY,URINE CLEAR; COLOR,URINE YELLOW; GLUCOSE,URINE NEGATIVE (NEG); NITRITE,URINE NEGATIVE (NEG); PH,URINE 5.5; PROTEIN,URINE NEGATIVE (NEG-TRACE); UROBILINOGEN,URINE 0.2 mg/dL (0.2 mg/dL)
[2017-07-22 22:23] LABS: BACTERIA,URINE MODERATE /HPF (0-FEW); RBC,URINE OCC /HPF (0-2); SQUAMOUS EPITHELIAL CELL,UR MOD /LPF
[2017-07-22 22:24] LABS: GRANULAR CASTS,URINE FEW /HPF; HYALINE CASTS, URINE FEW /HPF
== END 2017-07-22 22:36 | disposition home or self-care (01) ==
LOC: ER 19:51
DX: E86.0 Dehydration (principal); D70.9 Neutropenia, unspecified; R10.2 Pelvic and perineal pain
CPT/HCPCS: 36415; 80053; 81001; 83690; 83735; 85007; 85025; 87086; 96361; 96374; 96375; 99284-25; J0780; J2405; J7030

== ENCOUNTER → 2017-07-22 | Outpatient (CLI) | payer OTHER ==
[~2017-07-22] MED LIST changes: +CONTRAST GIVEN MC; -LIDOCAINE 2%/EPI 1:100,000 20 ML VIAL.; -MIDAZOLAM HCL/PF 2 MG/2 ML VIAL.; -fentaNYL PF VIAL 100 MCG/2 ML VIAL
[2017-07-22] MEDS: IOHEXOL 300 MG/ML 100ML VIAL. IV (12:06)
[2017-07-22] MEDS: IOHEXOL 240 MG/ML 50ML VIAL. PO (12:07)
== END | disposition home or self-care (01) ==
LOC: CT 12:32
DX: C53.9 Malignant neoplasm of cervix uteri, unspecified (principal)
CPT/HCPCS: 74177; Q9966; Q9967

== ENCOUNTER → 2017-08-05 | Outpatient (CLI) | payer OTHER ==
[2017-08-05] MEDS: IOHEXOL 300 MG/ML 100ML VIAL. IV (13:46)
== END | disposition home or self-care (01) ==
LOC: CT 13:03
DX: R06.02 Shortness of breath (principal); Z85.41 Personal history of malignant neoplasm of cervix uteri
CPT/HCPCS: 71275; Q9967

== ENCOUNTER 2017-09-10 18:20 | Emergency (ER) | payer OTHER ==
[2017-09-10 19:02] LABS: ADD MAN DIFF? NO
[2017-09-10] MEDS: ONDANSETRON PF 4 MG/2 ML VIAL. IV (19:07)
[2017-09-10 19:08] LABS: BASO % 0 % (0-3); EOS % 1 % (0-3); HEMATOCRIT 25.8 % (36.0-47.0); HEMOGLOBIN 9.1 g/dL (12.0-15.5); LYMPH # 0.5 x10^3/uL (1.0-4.8); LYMPH % 54 % (24-48); MEAN CORPUSCULAR HEMOGLOBIN 31 pg (25-35); MEAN CORPUSCULAR HGB CONC 36 g/dL (31-37); MEAN CORPUSCULAR VOLUME 88 fL (79-100); MONO # 0.1 x10^3/uL (0.0-1.1); MONO % 11 % (0-9); NEUT # 0.3 x10^3uL (1.8-7.7); NEUT % 34 % (31-73); PLATELET COUNT 50 x10^3/uL (140-400); RED BLOOD COUNT 2.93 x10^6/uL (3.50-5.40); RED CELL DISTRIBUTION WIDTH 20.8 % (11.5-14.5)
[2017-09-10] MEDS: fentaNYL PF VIAL 100 MCG/2 ML VIAL IV ×4 (19:08→21:45)
[2017-09-10] MEDS: IV NORMAL SALINE 1000ML BAG 1,000 ML IV (19:10)
[2017-09-10 19:13] LABS: ANION GAP 8 (6-14); BLOOD UREA NITROGEN 13 mg/dL (7-20); CALCIUM 8.3 mg/dL (8.5-10.1); CARBON DIOXIDE 27 mmol/L (21-32); CHLORIDE 106 mmol/L (98-107); CREATININE 1.2 mg/dL (0.6-1.0); GFR 50.6; GLUCOSE 91 mg/dL (70-99); POTASSIUM 3.7 mmol/L (3.5-5.1); SODIUM 141 mmol/L (136-145)
[2017-09-10 19:19] LABS: ALBUMIN 2.7 g/dL (3.4-5.0); ALK PHOS 65 U/L (46-116); ALT (SGPT) 18 U/L (14-59); AST (SGOT) 13 U/L (15-37); DIRECT BILIRUBIN < 0.1 mg/dL (0.0-0.2); LIPASE 124 U/L (73-393); MAGNESIUM 1.8 mg/dL (1.8-2.4); TOTAL BILIRUBIN 0.3 mg/dL (0.2-1.0); TOTAL PROTEIN 6.3 g/dL (6.4-8.2)
[2017-09-10 20:28] LABS: BILIRUBIN,URINE NEGATIVE (NEG); CLARITY,URINE CLEAR; COLOR,URINE YELLOW; GLUCOSE,URINE NEGATIVE (NEG); NITRITE,URINE NEGATIVE (NEG); PH,URINE 8.5; PROTEIN,URINE NEGATIVE (NEG-TRACE); UROBILINOGEN,URINE 0.2 mg/dL (0.2 mg/dL)
[2017-09-10 20:30] LABS: % BANDS 3 % (0-9); % LYMPHS 65 % (24-48); % MONOS 6 % (0-10); % SEGS 26 % (35-66); ANISOCYTOSIS MOD; PLT ESTIMATE DECREASED (ADEQUATE); POLYCHROMASIA SLIGHT
[2017-09-10 20:35] LABS: BACTERIA,URINE 0 /HPF (0-FEW); RBC,URINE 0 /HPF (0-2); SQUAMOUS EPITHELIAL CELL,UR MOD /LPF
[2017-09-10] MEDS ORDERED: fentaNYL PF VIAL 100 MCG/2 ML VIAL IV (22:15)
[2017-09-10] MEDS: oxyCODONE IR 5 MG TABLET PO (22:19)
[2017-09-10] MEDS: HEPARIN PF 500 UNIT/5 ML DISP.SYRIN. IV (23:11)
== END 2017-09-10 23:10 | disposition home or self-care (01) ==
LOC: ER 23:10
DX: R10.13 Epigastric pain (principal); R11.0 Nausea; Z90.710 Acquired absence of both cervix and uterus; Z90.722 Acquired absence of ovaries, bilateral
CPT/HCPCS: 36415; 74176; 80048; 80076; 81001; 83690; 83735; 85007; 85025; 96374; 96375; 96376; 99285-25; J2405; J3010; J7030

== ENCOUNTER 2017-10-08 15:43 | Emergency (ER) | payer OTHER ==
[2017-10-08] MEDS ORDERED: FAMOTIDINE 20 MG/2 ML VIAL (16:15)
[2017-10-08 16:16] LABS: ADD MAN DIFF? NO
[2017-10-08] MEDS: FAMOTIDINE 20 MG/2 ML VIAL IVP (16:22)
[2017-10-08 16:23] LABS: BASO % 0 % (0-3); EOS % 1 % (0-3); HEMATOCRIT 35.8 % (36.0-47.0); HEMOGLOBIN 12.3 g/dL (12.0-15.5); LYMPH # 0.6 x10^3/uL (1.0-4.8); LYMPH % 27 % (24-48); MEAN CORPUSCULAR HEMOGLOBIN 32 pg (25-35); MEAN CORPUSCULAR HGB CONC 35 g/dL (31-37); MEAN CORPUSCULAR VOLUME 93 fL (79-100); MONO # 0.3 x10^3/uL (0.0-1.1); MONO % 13 % (0-9); NEUT # 1.4 x10^3uL (1.8-7.7); NEUT % 58 % (31-73); PLATELET COUNT 184 x10^3/uL (140-400); RED BLOOD COUNT 3.84 x10^6/uL (3.50-5.40); WHITE BLOOD COUNT 2.4 x10^3/uL (4.0-11.0)
[2017-10-08] MEDS: ONDANSETRON PF 4 MG/2 ML VIAL. IV (16:23)
[2017-10-08] MEDS: fentaNYL PF VIAL 100 MCG/2 ML VIAL IV ×2 (16:25→18:10)
[2017-10-08] MEDS: IV NORMAL SALINE 1000ML BAG 1,000 ML IV ×2 (16:26→19:00)
[2017-10-08] MEDS: DICYCLOMINE 20 MG/2 ML AMPUL. IM (16:34)
[2017-10-08 16:35] LABS: MAGNESIUM 2.2 mg/dL (1.8-2.4)
[2017-10-08 16:36] LABS: ANION GAP 11 (6-14); BLOOD UREA NITROGEN 11 mg/dL (7-20); BUN/CREATININE RATIO 9 (6-20); CALCIUM 8.7 mg/dL (8.5-10.1); CARBON DIOXIDE 26 mmol/L (21-32); CHLORIDE 104 mmol/L (98-107); CREATININE 1.2 mg/dL (0.6-1.0); GFR 50.6; GLUCOSE 114 mg/dL (70-99); POTASSIUM 3.6 mmol/L (3.5-5.1); SODIUM 141 mmol/L (136-145)
[2017-10-08 16:38] LABS: BILIRUBIN,URINE NEGATIVE (NEG); CLARITY,URINE CLEAR; COLOR,URINE YELLOW; GLUCOSE,URINE NEGATIVE (NEG); NITRITE,URINE NEGATIVE (NEG); PH,URINE 7.5; PROTEIN,URINE NEGATIVE (NEG-TRACE); UROBILINOGEN,URINE 0.2 mg/dL (0.2 mg/dL)
[2017-10-08 16:42] LABS: ALBUMIN 3.2 g/dL (3.4-5.0); ALBUMIN/GLOBULIN RATIO 0.9 (1.0-1.7); ALK PHOS 56 U/L (46-116); ALT (SGPT) 31 U/L (14-59); AST (SGOT) 40 U/L (15-37); LIPASE 102 U/L (73-393); TOTAL BILIRUBIN 0.3 mg/dL (0.2-1.0); TOTAL PROTEIN 6.9 g/dL (6.4-8.2)
[2017-10-08 16:44] LABS: LACTIC ACID 1.7 mmol/L (0.4-2.0)
[2017-10-08 17:06] LABS: BACTERIA,URINE FEW /HPF (0-FEW); RBC,URINE 0 /HPF (0-2); SQUAMOUS EPITHELIAL CELL,UR MOD /LPF; WBC,URINE 0 /HPF (0-4)
[2017-10-08] MEDS: oxyCODONE IR 5 MG TABLET PO (18:24)
[2017-10-08] MEDS: LIDO:MAALOX 1:1 20 ML SINGLE DOSE. SWSW (18:26)
== END 2017-10-08 19:53 | disposition home or self-care (01) ==
LOC: ER 15:43
DX: R10.13 Epigastric pain (principal); D70.9 Neutropenia, unspecified; G89.29 Other chronic pain; R11.2 Nausea with vomiting, unspecified; Z97.10 Presence of artificial limb (complete) (partial), unspecified; Z90.722 Acquired absence of ovaries, bilateral
CPT/HCPCS: 36415; 80053; 81001; 83605; 83690; 83735; 85025; 87040; 87086; 96361; 96372; 96374; 96375; 96376; 99285-25; J0500; J2405; J3010; J7030; S0028

== ENCOUNTER → 2017-10-14 | Outpatient (CLI) | payer OTHER | END | disposition home or self-care (01) | LOC: RAD 13:36 | DX: M25.552 Pain in left hip (principal); C53.8 Malignant neoplasm of overlapping sites of cervix uteri; G89.29 Other chronic pain; R53.1 Weakness | CPT/HCPCS: 73502 ==

== ENCOUNTER 2017-11-13 10:23 | Emergency (ER) | payer OTHER ==
[~2017-11-13] VITALS: Ht 167.6 cm; Wt 93.0 kg
[~2017-11-13 10:23] MED LIST changes: +CISP1VIA3 IV; -CONTRAST GIVEN MC; +DEXA4TAB PO; +DEXA4TAB63 PO; +DEXA6TAB PO; +DIPH25CA58 PO; +DOCU-109 PO; +ESTR0.5T PO; +IBUP-1060 PO; +LIDO30CR TP; +LOPE2CAP88 PO; +MAGN400T3 PO; +MEDR10TA PO; +OLAN10TA3 PO; +ONDA8TAB9 PO; +OXYC-323 PO; +OXYC5TAB88 PO; +OXYC5TAB95 PO; +POTA20TA4 PO; +PROC10TA57 PO; +RANI75TA95 PO; +ZOLP5TAB PO; +estradiol
[2017-11-13] MEDS ORDERED: IV NORMAL SALINE 1000ML BAG 1,000 ML IV SCH ×2 (10:25→13:15)
[2017-11-13] MEDS ORDERED: ONDANSETRON PF 4 MG/2 ML VIAL. IV ONE ×2 (10:30→10:45)
[2017-11-13] MEDS ORDERED: HYDROmorphone 2 MG/ML VIAL IV PRN (10:30)
[2017-11-13] MEDS: fentaNYL PF VIAL 100 MCG/2 ML VIAL IV PRN ×3 (10:32→11:40)
[2017-11-13] MEDS: MORPHINE SULFATE 4 MG/ML VIAL. IV PRN ×2 (10:46→12:37)
[2017-11-13 10:50] LABS: BASO % 1 % (0-3); EOS # 0.1 x10^3/uL (0.0-0.7); EOS % 2 % (0-3); HEMATOCRIT 30.3 % (36.0-47.0); HEMOGLOBIN 10.6 g/dL (12.0-15.5); LYMPH # 1.1 x10^3/uL (1.0-4.8); LYMPH % 26 % (24-48); MEAN CORPUSCULAR HEMOGLOBIN 33 pg (25-35); MEAN CORPUSCULAR HGB CONC 35 g/dL (31-37); MEAN CORPUSCULAR VOLUME 95 fL (79-100); MONO # 0.4 x10^3/uL (0.0-1.1); MONO % 10 % (0-9); NEUT # 2.4 x10^3uL (1.8-7.7); NEUT % 62 % (31-73); PLATELET COUNT 267 x10^3/uL (140-400); RED CELL DISTRIBUTION WIDTH 13.4 % (11.5-14.5)
--- NOTE | 2017-11-13 10:55 | PHYS DOC ---
Past Medical History Past Medical History: Cancer Additional Past Medical Histor: CERVICAL CANCER Past Surgical History: Hysterectomy, Oophorectomy Additional Past Surgical Histo: HYSTERECTOMY, Port placement Alcohol Use: Occasionally Drug Use: None Adult General Chief Complaint Chief Complaint: ABDOMINAL PAIN HPI HPI 37-year-old with a history of cervical cancer status post total abdominal hysterectomy by Dr. Henson earlier this April presenting to the emergency department today with upper gastric abdominal pain that is sharp severe nonradiating intermittent and without alleviating factors. She has had a few episodes of nausea with vomiting. She denies it is nonbloody and nonbilious. She describes the pain as a cramping pain. 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 She received 2 g of magnesium yesterday for this. She last ate around 9:00 this morning. Review of systems is negative for chest pain shortness of breath fevers chills. All other review of systems is negative unless otherwise noted in history of present illness. ED course: 37-year-old female presenting the emergency department today with epigastric abdominal pain. She is afebrile with normal heart rate here in the emergency department. She was given IV fluids nausea and pain medication. Blood work sent along with CT the abdomen pelvis. Blood work unremarkable. CT the abdomen pelvis shows no acute pathology. On reexamination the patient is feeling much better. Abdomen exam continues soft and nontender without rebound tenderness or guarding. We will discharge patient home with strict return precautions. I did offer the patient hospitalization for monitoring which she declined. The patient was then discharged home in stable condition to follow up with their primary care physician over the next 2-3 days. They were to return if their symptoms worsened or if they were concerned for any reason. They were also instructed to return to the emergency department if they were unable to get the recommended and appropriate follow-up. [id number] discharge instructions and return precautions were given. Patient's questions were answered to their satisfaction. Patient is comfortable with plan. Review of Systems Review of Systems SEE ABOVE. Current Medications Current Medications Current Medications Medications (Trade) Dose Ordered Sig/Sanna Start Time Stop Time Status Last Admin Dose Admin Fentanyl Citrate (Fentanyl 2ml Vial) 50 mcg PRN Q30MIN PRN 11/13/17 10:30 11/13/17 11:40 DC 11/13/17 11:40 50 MCG Hydromorphone HCl (Dilaudid) 0.5 mg PRN Q30MIN PRN 11/13/17 10:30 11/13/17 10:35 DC Info (CONTRAST GIVEN -- Rx MONITORING) 1 each PRN DAILY PRN 11/13/17 12:00 11/15/17 11:59 Iohexol (Omnipaque 300 Mg/ml) 75 ml 1X ONCE 11/13/17 12:00 11/13/17 12:01 DC 11/13/17 12:20 75 ML Metoclopramide HCl (Reglan Vial) 10 mg 1X ONCE 11/13/17 13:00 11/13/17 13:01 DC 11/13/17 12:37 10 MG Morphine Sulfate (Morphine Sulfate) 2 mg PRN Q2HR PRN 11/13/17 13:15 11/14/17 13:14 Ondansetron HCl (Zofran) 4 mg PRN Q8HRS PRN 11/13/17 13:15 11/14/17 13:14 Sodium Chloride 1,000 ml @ 100 mls/hr Q10H 11/13/17 13:15 11/14/17 13:14 Allergies Allergies Allergies Coded Allergies Type Severity Reaction Last Updated Verified No Known Drug Allergies 11/12/17 No Physical Exam Physical Exam SEE ABOVE Constitutional: Well developed, well nourished, no acute distress, non-toxic appearance. [] HENT: Normocephalic, atraumatic, bilateral external ears normal, oropharynx moist, no oral exudates, nose normal. [] Eyes: PERRLA, EOMI, conjunctiva normal, no discharge. [] Neck: Normal range of motion, no tenderness, supple, no stridor. [] Cardiovascular:Heart rate regular rhythm, no murmur [] Lungs & Thorax: Bilateral breath sounds clear to auscultation [] Abdomen: Bowel sounds normal, soft, no tenderness, no masses, no pulsatile masses. neg mcburneys point. neg murphys sign. No rebound tenderness or guarding. Skin: Warm, dry, no erythema, no rash. [] Back: No tenderness, no CVA tenderness. [] Extremities: No tenderness, no cyanosis, no clubbing, ROM intact, no edema. [] Neurologic: Alert and oriented X 3, normal motor function, normal sensory function, no focal deficits noted. [] Psychologic: Affect normal, judgement normal, mood normal. [] Current Patient Data Vital Signs Vital Signs Date Time Temp Pulse Resp B/P (MAP) Pulse Ox O2 Delivery O2 Flow Rate FiO2 11/13/17 13:00 70 14 106/53 (70) 98 Room Air 11/13/17 10:27 98.3 98.3 Lab Values Laboratory Tests Test 11/13/17 10:25 11/13/17 11:25 White Blood Count 4.0 x10^3/uL (4.0-11.0) Red Blood Count 3.20 x10^6/uL (3.50-5.40) L Hemoglobin 10.6 g/dL (12.0-15.5) L Hematocrit 30.3 % (36.0-47.0) L Mean Corpuscular Volume 95 fL (79-100) Mean Corpuscular Hemoglobin 33 pg (25-35) Mean Corpuscular Hemoglobin Concent 35 g/dL (31-37) Red Cell Distribution Width 13.4 % (11.5-14.5) Platelet Count 267 x10^3/uL (140-400) Neutrophils (%) (Auto) 62 % (31-73) Lymphocytes (%) (Auto) 26 % (24-48) Monocytes (%) (Auto) 10 % (0-9) H Eosinophils (%) (Auto) 2 % (0-3) Basophils (%) (Auto) 1 % (0-3) Neutrophils # (Auto) 2.4 x10^3uL (1.8-7.7) Lymphocytes # (Auto) 1.1 x10^3/uL (1.0-4.8) Monocytes # (Auto) 0.4 x10^3/uL (0.0-1.1) Eosinophils # (Auto) 0.1 x10^3/uL (0.0-0.7) Basophils # (Auto) 0.0 x10^3/uL (0.0-0.2) Sodium Level 139 mmol/L (136-145) Potassium Level 3.8 mmol/L (3.5-5.1) Chloride Level 105 mmol/L (98-107) Carbon Dioxide Level 26 mmol/L (21-32) Anion Gap 8 (6-14) Blood Urea Nitrogen 11 mg/dL (7-20) Creatinine 1.0 mg/dL (0.6-1.0) Estimated GFR (Cockcroft-Gault) 62.4 BUN/Creatinine Ratio 11 (6-20) Glucose Level 115 mg/dL (70-99) H Calcium Level 9.4 mg/dL (8.5-10.1) Magnesium Level 1.8 mg/dL (1.8-2.4) Total Bilirubin 0.2 mg/dL (0.2-1.0) Aspartate Amino Transferase (AST) 37 U/L (15-37) Alanine Aminotransferase (ALT) 45 U/L (14-59) Alkaline Phosphatase 69 U/L (46-116) Total Protein 7.6 g/dL (6.4-8.2) Albumin 3.6 g/dL (3.4-5.0) Albumin/Globulin Ratio 0.9 (1.0-1.7) L Lipase 133 U/L (73-393) Serum Test, Qualitative Negative (NEG) Urine Collection Type Unknown Urine Color Yellow Urine Clarity Clear Urine pH 6.5 Urine Specific [place] <=1.005 Urine Protein Negative mg/dL (NEG-TRACE) Urine Glucose (UA) Negative mg/dL (NEG) Urine Ketones (Stick) Negative mg/dL (NEG) Urine Blood Negative (NEG) Urine Nitrite Negative (NEG) Urine Bilirubin Negative (NEG) Urine Urobilinogen Dipstick 0.2 mg/dL (0.2 mg/dL) Urine Leukocyte Esterase Trace (NEG) Urine RBC Rare /HPF (0-2) Urine WBC 1-4 /HPF (0-4) Urine Squamous Epithelial Cells Few /LPF Urine Bacteria Few /HPF (0-FEW) Laboratory Tests 11/13/17 10:25 Laboratory Tests 11/13/17 10:25 EKG EKG [] Radiology/Procedures Radiology/Procedures [] Course & Med Decision Making Course & Med Decision Making Pertinent Labs and Imaging studies reviewed. (See chart for details) [] Dragon Disclaimer Dragon Disclaimer This electronic medical record was generated, in whole or in part, using a voice recognition dictation system. Departure Departure Impression: Primary Impression: Abdominal pain Disposition: 01 HOME, SELF-CARE Condition: STABLE Referrals: ALYSSA MARTELL MD (PCP) Patient Instructions: Abdominal Pain (Nonspecific) Additional Instructions: Thank you for allowing us to participate in your care today. Return to the emergency department you have any new or worsening symptoms, or if you are concerned for any reason. Return to emergency department if you have any new or concerning symptoms including but not limited to fever, chills, nausea, vomiting, intractable pain, any new rashes, chest pain, shortness of air , uncontrolled bleeding, difficulty breathing, and/or vision loss. Follow up with your primary care physician within 3 days. Call your Primary Doctor tomorrow and inform them of your visit today. If you do not have a primary care provider we are happy to provide you with a list of our primary care providers contact information. This condition should be evaluated by your primary care physician and any recommended consulting services for continued management within 2-3 days after discharge. If at any time, you are having difficulty getting into your primary care doctor or a specialist, return to the emergency department. You may have been prescribed medication or given medication in the emergency department that can change in your level of thinking and ability to operate machinery. Many prescribed medications can cause this. Some commonly prescribed medications include hydrocodone, ativan, and benadryl. Be sure to check with your pharmacist and ask if the medications you've prescribed can affect your level of consciousness. I recommend not operating heavy machinery or driving while on medication such as these. ELIU BENTLEY MD Nov 13, 2017 10:55
[2017-11-13 10:57] LABS: CALCIUM 9.4 mg/dL (8.5-10.1); GFR 62.4; POTASSIUM 3.8 mmol/L (3.5-5.1); PREG TEST PT QUAL NEGATIVE (NEG)
[2017-11-13 11:03] LABS: ALBUMIN 3.6 g/dL (3.4-5.0); ALBUMIN/GLOBULIN RATIO 0.9 (1.0-1.7); TOTAL BILIRUBIN 0.2 mg/dL (0.2-1.0); TOTAL PROTEIN 7.6 g/dL (6.4-8.2)
[2017-11-13 11:42] LABS: BILIRUBIN,URINE NEGATIVE (NEG); CLARITY,URINE CLEAR; COLOR,URINE YELLOW; NITRITE,URINE NEGATIVE (NEG); PH,URINE 6.5; PROTEIN,URINE NEGATIVE (NEG-TRACE); UROBILINOGEN,URINE 0.2 mg/dL (0.2 mg/dL)
[2017-11-13 11:53] LABS: RBC,URINE RARE /HPF (0-2)
[2017-11-13 11:54] LABS: BACTERIA,URINE FEW /HPF (0-FEW); SQUAMOUS EPITHELIAL CELL,UR FEW /LPF
[2017-11-13] MEDS ORDERED: CONTRAST GIVEN. MC PRN (12:00)
[2017-11-13] MEDS ORDERED: IOHEXOL 300 MG/ML 100ML VIAL. IV ONE (12:00)
[2017-11-13] MEDS ORDERED: METOCLOPRAMIDE HCL 10 MG/2 ML VIAL. ONE (12:34)
--- NOTE | 2017-11-13 12:54 | RAD ---
PQRS Compliance Statement: One or more of the following individualized dose reduction techniques were utilized for this examination: 1. Automated exposure control 2. Adjustment of the mA and/or kV according to patient size 3. Use of iterative reconstruction technique CT ABD PELV W/ IV CONTRST ONLY Clinical Indication: EPIGASTRIC PAIN H/O CERVICAL CA Comparison: CT abdomen and pelvis without contrast, September 10, 2017. Technique: Helical CT imaging of the abdomen and pelvis is performed after 75 cc of Omnipaque 300 IV contrast. Oral contrast not given. Findings: There is moderate discoid atelectasis or scarring in the bilateral lung bases. Large calcified right hilar lymph node. Calcified granuloma right lower lobe. Cardiac size normal. Contracted gallbladder, limiting evaluation. Liver, spleen, pancreas, adrenal glands, abdominal aorta, and kidneys are normal. Stomach is normal. No dilated small bowel. The appendix is normal. There is no colon wall thickening. Mild haziness of the retroperitoneum is unchanged. No abdominal adenopathy or free fluid. Urinary bladder is normal. Hysterectomy. There is presacral edema, nonspecific. There is no pelvic free fluid. Enlarged left iliac lymph node is stable, image 74. No acute bone abnormality. IMPRESSION: 1. Moderate discoid atelectasis or scarring in the bilateral lung bases. 2. Contracted gallbladder. 3. Enlarged left iliac lymph node is stable. 4. There is presacral edema, nonspecific. Electronically signed by: Osito Isabel MD (11/13/2017 12:50 PM) [id number]
[2017-11-13] MEDS ORDERED: METOCLOPRAMIDE HCL 10 MG/2 ML VIAL. IV ONE (13:00)
[2017-11-13] MEDS ORDERED: MORPHINE SULFATE 2 MG/ML VIAL. IV PRN (13:15)
[2017-11-13] MEDS ORDERED: ONDANSETRON PF 4 MG/2 ML VIAL. IV PRN (13:15)
[2017-11-13 13:45] VITALS: BP 106/67
== END 2017-11-13 14:32 | disposition home or self-care (01) ==
LOC: ER 10:23
DX: R10.13 Epigastric pain (principal); Z90.49 Acquired absence of other specified parts of digestive tract; Z90.710 Acquired absence of both cervix and uterus
CPT/HCPCS: 36415; 74177; 80053; 81001; 83690; 83735; 84703; 85025; 87086; 96361; 96374; 96375; 96376; 99285; J2270; J2405; J2765; J3010; J7030; Q9967

== ENCOUNTER → 2017-11-18 | Outpatient (CLI) | payer OTHER ==
[2017-11-13 13:45] VITALS: BP 106/67
== END | disposition home or self-care (01) ==
LOC: LAB 12:07
PROVIDERS: ATTEND Internal Medicine Hematology & Oncology
DX: C53.8 Malignant neoplasm of overlapping sites of cervix uteri (principal); I10 Essential (primary) hypertension; D64.81 Anemia due to antineoplastic chemotherapy; E87.6 Hypokalemia; E83.42 Hypomagnesemia; E87.5 Hyperkalemia; Z90.710 Acquired absence of both cervix and uterus; Z90.49 Acquired absence of other specified parts of digestive tract; Z90.722 Acquired absence of ovaries, bilateral; Z85.828 Personal history of other malignant neoplasm of skin; Z87.891 Personal history of nicotine dependence; Z85.43 Personal history of malignant neoplasm of ovary; Z85.41 Personal history of malignant neoplasm of cervix uteri; Z80.49 Family history of malignant neoplasm of other genital organs; Z83.3 Family history of diabetes mellitus
CPT/HCPCS: 36415; 82607; 83735; 84443; 86431

== ENCOUNTER → 2017-11-24 | Outpatient (CLI) | payer OTHER ==
[2017-11-20 15:56] VITALS: BP 117/38
[2017-11-24 13:28] LABS: CALCIUM 9.4 mg/dL (8.5-10.1); GFR 62.4; MAGNESIUM 1.8 mg/dL (1.8-2.4); POTASSIUM 4.2 mmol/L (3.5-5.1)
== END | disposition home or self-care (01) ==
LOC: LAB 12:51
PROVIDERS: ATTEND Internal Medicine Hematology & Oncology
DX: Z02.83 Encounter for blood-alcohol and blood-drug test (principal); I10 Essential (primary) hypertension; Z79.899 Other long term (current) drug therapy; Z83.3 Family history of diabetes mellitus; Z85.828 Personal history of other malignant neoplasm of skin; Z87.891 Personal history of nicotine dependence; Z85.43 Personal history of malignant neoplasm of ovary; Z85.41 Personal history of malignant neoplasm of cervix uteri; Z92.3 Personal history of irradiation; Z92.21 Personal history of antineoplastic chemotherapy; Z90.722 Acquired absence of ovaries, bilateral; Z90.49 Acquired absence of other specified parts of digestive tract; Z90.710 Acquired absence of both cervix and uterus; Z68.32 Body mass index [BMI] 32.0-32.9, adult; Z80.49 Family history of malignant neoplasm of other genital organs
CPT/HCPCS: 36415; 80048; 83735

== ENCOUNTER → 2017-11-26 | Outpatient (CLI) | payer OTHER ==
[2017-11-20 15:56] VITALS: BP 117/38
--- NOTE | 2017-11-26 15:30 | RAD ---
FDG tumor localization scan, PET/CT, 11/26/2017: History: Restaging cervical cancer with metastases, pulmonary nodules Following IV injection of 12.4 mCi of 18 F-FDG, imaging was performed from the skull base to the proximal thighs. The noncontrast CT component was performed for attenuation correction and anatomic localization purposes rather than for primary diagnosis. The patient's blood glucose level at the time of injection was 104 MG/DL. Comparison is made to a study from 06/04/2017.. There are numerous foci of abnormal FDG uptake in the mediastinum corresponding location to enlarged nodes seen on 11/19/2017 CT exam. The maximum SUV of these nodes is approximately 12.6 along the superior aspect of the aortic arch on the left. There are also hypermetabolic right paratracheal nodes as well as hypermetabolic supraclavicular lymph nodes, more so on the left. The findings are compatible with metastatic disease. No abnormal pulmonary FDG uptake is seen. Normal GI tract and urinary tract activity is present in the abdomen and pelvis. The majority of the hypermetabolic lower periaortic and pericaval lymph nodes have regressed. There is a residual 9 mm hypermetabolic node long the anterior aspect of the inferior vena cava just superior to the level of the aortic bifurcation. It demonstrates a maximum SUV of 9.6. It is of similar intensity when compared to the previous study. It appears to have decreased slightly in size. The bilateral iliac lymph nodes have also regressed decreasing in size and metabolic activity. There is a residual 19 mm left internal iliac lymph node which measured 2.5 cm on the previous study. There is only a tiny residual hypermetabolic focus within this node demonstrates a maximum SUV of 3.1. On the previous study a maximum SUV in this node was 6.7. There is also a small residual hypermetabolic focus in the right common iliac region, although this may be related to ureter. No hypermetabolic osseous lesion is seen. IMPRESSION: 1. Interval regression of the hypermetabolic pelvic and distal periaortic/pericaval adenopathy since 06/04/2017. 2. Interval development of extensive hypermetabolic mediastinal and supraclavicular adenopathy, more so on the left, on a metastatic basis.
== END | disposition home or self-care (01) ==
LOC: PETSC 12:48
PROVIDERS: ATTEND Internal Medicine Hematology & Oncology
DX: C53.8 Malignant neoplasm of overlapping sites of cervix uteri (principal); I10 Essential (primary) hypertension; E87.5 Hyperkalemia; D64.81 Anemia due to antineoplastic chemotherapy; K21.9 Gastro-esophageal reflux disease without esophagitis; Z85.828 Personal history of other malignant neoplasm of skin; Z87.891 Personal history of nicotine dependence; Z85.43 Personal history of malignant neoplasm of ovary; Z85.41 Personal history of malignant neoplasm of cervix uteri; Z92.21 Personal history of antineoplastic chemotherapy; Z90.722 Acquired absence of ovaries, bilateral; Z90.49 Acquired absence of other specified parts of digestive tract; Z90.710 Acquired absence of both cervix and uterus; Z68.32 Body mass index [BMI] 32.0-32.9, adult; Z82.49 Family history of ischemic heart disease and other diseases of the circulatory system; Z80.49 Family history of malignant neoplasm of other genital organs; Z83.3 Family history of diabetes mellitus
CPT/HCPCS: 78815; A9552

== ENCOUNTER → 2017-12-01 | Outpatient (CLI) | payer OTHER ==
[2017-11-20 15:56] VITALS: BP 117/38
[~2017-12-01] MED LIST changes: +ONDA4TAB7 PO
[2017-12-01 14:10] LABS: CALCIUM 9.2 mg/dL (8.5-10.1); GFR 62.4; MAGNESIUM 1.6 mg/dL (1.8-2.4); POTASSIUM 3.8 mmol/L (3.5-5.1)
[2017-12-03 10:29] LABS: METHYLMALONIC ACID 131 nmol/L (0-378)
== END | disposition home or self-care (01) ==
LOC: LAB 13:40
PROVIDERS: ATTEND Internal Medicine Hematology & Oncology
DX: C53.8 Malignant neoplasm of overlapping sites of cervix uteri (principal); I10 Essential (primary) hypertension; K21.9 Gastro-esophageal reflux disease without esophagitis; E66.9 Obesity, unspecified; Z86.2 Personal history of diseases of the blood and blood-forming organs and certain disorders involving the immune mechanism; Z85.828 Personal history of other malignant neoplasm of skin; Z87.891 Personal history of nicotine dependence; Z85.43 Personal history of malignant neoplasm of ovary; Z85.41 Personal history of malignant neoplasm of cervix uteri; Z92.3 Personal history of irradiation; Z92.21 Personal history of antineoplastic chemotherapy; Z68.32 Body mass index [BMI] 32.0-32.9, adult; Z82.49 Family history of ischemic heart disease and other diseases of the circulatory system; Z80.49 Family history of malignant neoplasm of other genital organs; Z83.3 Family history of diabetes mellitus
CPT/HCPCS: 36415; 80048; 83735; 83921

== ENCOUNTER 2017-12-07 09:08 | Emergency (ER) | payer OTHER ==
[~2017-12-07] VITALS: Ht 167.6 cm; Wt 91.6 kg
[2017-12-07] MEDS ORDERED: IV NORMAL SALINE 1000ML BAG 1,000 ML IV ONE (09:45)
--- NOTE | 2017-12-07 09:57 | PHYS DOC ---
Past Medical History Past Medical History: Cancer, Other Additional Past Medical Histor: CERVICAL CANCER Past Surgical History: Hysterectomy, Oophorectomy Additional Past Surgical Histo: HYSTERECTOMY, Port placement Alcohol Use: Occasionally Drug Use: None Adult General Chief Complaint Chief Complaint: FEVER HPI HPI Patient is a 37 year old [female complaining of fever 103.2 last night associated with sinus congestion sore throat and a cough with dark sputum. Minimal shortness of breath no chest pain she does have cervical cancer she is supposed to start chemotherapy again next week last chemotherapy was over 3 months ago Review of Systems Review of Systems Respiratory: Denies or shortness of breath [] Cardiovascular: No additional information not addressed in HPI [] GI: Chronic diarrhea Musculoskeletal: Denies back pain or joint pain [] Integument: Denies rash or skin lesions [] Neurologic: Denies headache, focal weakness or sensory changes [] Endocrine: Denies polyuria or polydipsia [] All other systems were reviewed and found to be within normal limits, except as documented in this note. Current Medications Current Medications Current Medications Medications (Trade) Dose Ordered Sig/Sanna Start Time Stop Time Status Last Admin Dose Admin Doxycycline Hyclate (Vibra-Tab) 100 mg 1X ONCE 12/07/17 11:15 12/07/17 11:16 DC 12/07/17 11:17 100 MG Fentanyl Citrate (Fentanyl 2ml Vial) 50 mcg 1X ONCE 12/07/17 11:00 12/07/17 11:02 DC 12/07/17 11:13 50 MCG Sodium Chloride 1,000 ml @ 1,000 mls/hr 1X ONCE 12/07/17 09:45 12/07/17 10:44 DC 12/07/17 10:26 1,000 MLS/HR Allergies Allergies Allergies Coded Allergies Type Severity Reaction Last Updated Verified No Known Drug Allergies 12/04/17 No Physical Exam Physical Exam Constitutional: Well developed, well nourished, no acute distress, non-toxic appearance. [] HENT: Normocephalic, atraumatic, bilateral external ears normal, oropharynx moist, no oral exudates, nose normal. [] Eyes: PERRLA, EOMI, conjunctiva normal, no discharge. [] Neck: Normal range of motion, no tenderness, supple, no stridor. [] Cardiovascular:Heart rate regular rhythm, no murmur [] Lungs & Thorax: Bilateral breath sounds clear to auscultation [] Abdomen: Bowel sounds normal, soft, no tenderness, no masses, no pulsatile masses. [] Skin: Warm, dry, no erythema, no rash. [] Back: No tenderness, no CVA tenderness. [] Extremities: No tenderness, no cyanosis, no clubbing, ROM intact, no edema. [] Neurologic: Alert and oriented X 3, normal motor function, normal sensory function, no focal deficits noted. [] Psychologic: Affect normal, judgement normal, mood normal. [] Current Patient Data Vital Signs Vital Signs Date Time Temp Pulse Resp B/P (MAP) Pulse Ox O2 Delivery O2 Flow Rate FiO2 12/07/17 09:20 98.2 78 16 122/58 (79) 98 Room Air 98.2 Lab Values Laboratory Tests Test 12/07/17 09:50 12/07/17 10:01 12/07/17 10:16 Urine Collection Type Void Urine Color Yellow Urine Clarity Clear Urine pH 6.0 Urine Specific [place] <=1.005 Urine Protein Negative mg/dL (NEG-TRACE) Urine Glucose (UA) Negative mg/dL (NEG) Urine Ketones (Stick) Negative mg/dL (NEG) Urine Blood Negative (NEG) Urine Nitrite Negative (NEG) Urine Bilirubin Negative (NEG) Urine Urobilinogen Dipstick 0.2 mg/dL (0.2 mg/dL) Urine Leukocyte Esterase Trace (NEG) Urine RBC Occ /HPF (0-2) Urine WBC Occ /HPF (0-4) Urine Squamous Epithelial Cells Few /LPF Urine Bacteria Few /HPF (0-FEW) POC Urine HCG, Qualitative Hcg negative (Negative) White Blood Count 6.2 x10^3/uL (4.0-11.0) Red Blood Count 3.12 x10^6/uL (3.50-5.40) L Hemoglobin 10.4 g/dL (12.0-15.5) L Hematocrit 29.1 % (36.0-47.0) L Mean Corpuscular Volume 94 fL (79-100) Mean Corpuscular Hemoglobin 33 pg (25-35) Mean Corpuscular Hemoglobin Concent 36 g/dL (31-37) Red Cell Distribution Width 12.1 % (11.5-14.5) Platelet Count 226 x10^3/uL (140-400) Neutrophils (%) (Auto) 82 % (31-73) H Lymphocytes (%) (Auto) 10 % (24-48) L Monocytes (%) (Auto) 6 % (0-9) Eosinophils (%) (Auto) 2 % (0-3) Basophils (%) (Auto) 0 % (0-3) Neutrophils # (Auto) 5.0 x10^3uL (1.8-7.7) Lymphocytes # (Auto) 0.6 x10^3/uL (1.0-4.8) L Monocytes # (Auto) 0.4 x10^3/uL (0.0-1.1) Eosinophils # (Auto) 0.1 x10^3/uL (0.0-0.7) Basophils # (Auto) 0.0 x10^3/uL (0.0-0.2) Sodium Level 139 mmol/L (136-145) Potassium Level 3.5 mmol/L (3.5-5.1) Chloride Level 105 mmol/L (98-107) Carbon Dioxide Level 27 mmol/L (21-32) Anion Gap 7 (6-14) Blood Urea Nitrogen 13 mg/dL (7-20) Creatinine 1.0 mg/dL (0.6-1.0) Estimated GFR (Cockcroft-Gault) 62.4 BUN/Creatinine Ratio 13 (6-20) Glucose Level 109 mg/dL (70-99) H Lactic Acid Level 0.5 mmol/L (0.4-2.0) Calcium Level 8.9 mg/dL (8.5-10.1) Magnesium Level 1.7 mg/dL (1.8-2.4) L Total Bilirubin 0.2 mg/dL (0.2-1.0) Aspartate Amino Transferase (AST) 15 U/L (15-37) Alanine Aminotransferase (ALT) 19 U/L (14-59) Alkaline Phosphatase 70 U/L (46-116) Total Protein 7.3 g/dL (6.4-8.2) Albumin 3.3 g/dL (3.4-5.0) L Albumin/Globulin Ratio 0.8 (1.0-1.7) L Laboratory Tests 12/07/17 10:16 Laboratory Tests 12/07/17 10:16 EKG EKG [] Radiology/Procedures Radiology/Procedures [] Course & Med Decision Making Course & Med Decision Making Pertinent Labs and Imaging studies reviewed. (See chart for details) 37-year-old female with a history of cervical cancer who has had chemotherapy but not since August, sore throat cough sick contact at home get labs and chest x- ray to rule out bacterial pneumonia. Probably viral etiology. Throat exam was normal no exudates doubt strep throat. Patient is AMBULATORY in the emergency room CXR NEGATIVE. PT IS WELL APPEARING. DOXYCYCLINE. F/U [facility] LATER THIS WEEK TO DECIDE ABOUT WHEN TO START CHEMO Dragon Disclaimer Dragon Disclaimer This electronic medical record was generated, in whole or in part, using a voice recognition dictation system. Departure Departure Impression: Primary Impression: Bronchitis Disposition: 01 HOME, SELF-CARE Condition: IMPROVED Referrals: ALYSSA MARTELL MD (PCP) Scripts Doxycycline Hyclate (DOXYCYCLINE HYCLATE) 100 Mg Capsule 1 CAP PO BID, #20 CAP Prov: MINISTERIO SANDY MD 12/07/17 MINISTERIO SANDY MD Dec 07, 2017 09:57
[2017-12-07 10:11] LABS: BILIRUBIN,URINE NEGATIVE (NEG); CLARITY,URINE CLEAR; COLOR,URINE YELLOW; NITRITE,URINE NEGATIVE (NEG); PROTEIN,URINE NEGATIVE (NEG-TRACE); UROBILINOGEN,URINE 0.2 mg/dL (0.2 mg/dL)
[2017-12-07 10:25] LABS: BACTERIA,URINE FEW /HPF (0-FEW); RBC,URINE OCC /HPF (0-2); SQUAMOUS EPITHELIAL CELL,UR FEW /LPF; WBC,URINE OCC /HPF (0-4)
--- NOTE | 2017-12-07 10:26 | RAD ---
Chest, PA and Lateral: Technique: PA and lateral views of the chest were obtained. History: Cough, fever. Comparison: 08/09/2017. Findings: Linear bibasilar lung atelectasis or infiltrate.. The heart size grossly appears unremarkable.. Right-sided Port-A-Cath unchanged.. Mild degenerative changes thoracic spine. Impression: Linear bibasilar lung atelectasis or infiltrate similar to prior exam. Electronically signed by: Bong Calvo MD (12/07/2017 10:23 AM) [id number]
[2017-12-07 10:32] LABS: BASO % 0 % (0-3); EOS # 0.1 x10^3/uL (0.0-0.7); EOS % 2 % (0-3); HEMATOCRIT 29.1 % (36.0-47.0); HEMOGLOBIN 10.4 g/dL (12.0-15.5); LYMPH # 0.6 x10^3/uL (1.0-4.8); LYMPH % 10 % (24-48); MEAN CORPUSCULAR HEMOGLOBIN 33 pg (25-35); MEAN CORPUSCULAR HGB CONC 36 g/dL (31-37); MEAN CORPUSCULAR VOLUME 94 fL (79-100); MONO # 0.4 x10^3/uL (0.0-1.1); MONO % 6 % (0-9); NEUT % 82 % (31-73); PLATELET COUNT 226 x10^3/uL (140-400); RED BLOOD COUNT 3.12 x10^6/uL (3.50-5.40); RED CELL DISTRIBUTION WIDTH 12.1 % (11.5-14.5); WHITE BLOOD COUNT 6.2 x10^3/uL (4.0-11.0)
[2017-12-07 10:55] LABS: CALCIUM 8.9 mg/dL (8.5-10.1); GFR 62.4; POTASSIUM 3.5 mmol/L (3.5-5.1)
[2017-12-07] MEDS ORDERED: fentaNYL PF VIAL 100 MCG/2 ML VIAL IV ONE (11:00)
[2017-12-07 11:10] LABS: ALBUMIN 3.3 g/dL (3.4-5.0); ALBUMIN/GLOBULIN RATIO 0.8 (1.0-1.7); MAGNESIUM 1.7 mg/dL (1.8-2.4); TOTAL BILIRUBIN 0.2 mg/dL (0.2-1.0); TOTAL PROTEIN 7.3 g/dL (6.4-8.2)
[2017-12-07] MEDS ORDERED: DOXY100C2 PO (11:14)
[2017-12-07] MEDS ORDERED: DOXYCYCLINE HYCLATE 100 MG TABLET PO ONE (11:15)
[2017-12-07 12:00] VITALS: BP 108/59
[2017-12-07] MEDS ORDERED: HEPARIN PF 500 UNIT/5 ML DISP.SYRIN. IV ONE (12:15)
== END 2017-12-07 12:10 | disposition home or self-care (01) ==
LOC: ER 09:08
DX: J40 Bronchitis, not specified as acute or chronic (principal); Z90.710 Acquired absence of both cervix and uterus
CPT/HCPCS: 36415; 71046; 80053; 81001; 81025; 83605; 83735; 85025; 87040; 87086; 96374; 99285; J3010; J7030

== ENCOUNTER → 2017-12-11 | Outpatient (CLI) | payer OTHER ==
[2017-12-07 12:00] VITALS: BP 108/59
[~2017-12-11] MED LIST changes: +DOXY100C2 PO
--- NOTE | 2017-12-11 09:20 | RAD ---
Exam: Right Upper Quadrant Ultrasound 12/11/2017 8:00 AM Indication: EPIGASTRIC PAIN Technique: Multiple realtime grayscale sonographic images were obtained over the abdomen. Static images were submitted for interpretation. Comparisons: CT of the abdomen and pelvis with contrast November 13, 2017 Findings: Visualized gallbladder demonstrates no evidence of wall thickening, or cholelithiasis. No pericholecystic fluid is seen. Possible minimal sludge within the dependent portion of the gallbladder seen. Visualized portions of the aorta and IVC are grossly unremarkable. The liver is partially visualized. Visualized portions of liver demonstrate no focal abnormality. The liver measures normal in size at approximately 14 cm longitudinally. Portal venous flow is in the normal direction. The common bile duct is nondilated measuring 3 mm in diameter. Right kidney is normal in appearance measuring 11.7 cm in length. Impression: 1. Possible minimal sludge within the gallbladder lumen. 2. Otherwise unremarkable sonographic appearance of the right upper quadrant Electronically signed by: Toro Fernández MD (12/11/2017 9:16 AM) [id number]
--- NOTE | 2017-12-11 13:48 | RAD ---
HEPATOBILIARY SCAN WITH EJECTION FRACTION 12/11/2017 1:44 PM History: N/V, epigastric pain x 3 months Procedure: Serial static images are obtained of the liver and biliary system in the frontal projection following IV administration of 5.5 mCi of Technetium 99m Choletec. After filling of the gallbladder, an oral cyst nutritional supplement containing fat was given orally and imaging over the abdomen continued. The gallbladder ejection fraction was calculated. Findings: There is prompt hepatic clearance of tracer from the blood pool. There is homogeneous distribution throughout the liver. Gallbladder ejection fraction measured over 1 hours approximately 96 % (normal gallbladder EF is 35% or greater). IMPRESSION: 1. The cystic duct and common bile duct are patent. Negative for acute cholecystitis. 2. The gallbladder ejection fraction is within normal limits Electronically signed by: Toro Fernández MD (12/11/2017 1:45 PM) [facility]
== END | disposition home or self-care (01) ==
LOC: US 07:32
PROVIDERS: ATTEND Internal Medicine Gastroenterology
DX: R10.13 Epigastric pain (principal); I10 Essential (primary) hypertension; D64.81 Anemia due to antineoplastic chemotherapy; E87.6 Hypokalemia; I48.91 Unspecified atrial fibrillation; E66.9 Obesity, unspecified; K21.9 Gastro-esophageal reflux disease without esophagitis; Z85.828 Personal history of other malignant neoplasm of skin; Z87.891 Personal history of nicotine dependence; Z85.43 Personal history of malignant neoplasm of ovary; Z85.41 Personal history of malignant neoplasm of cervix uteri; Z92.3 Personal history of irradiation; Z92.21 Personal history of antineoplastic chemotherapy; Z90.722 Acquired absence of ovaries, bilateral; Z90.49 Acquired absence of other specified parts of digestive tract; Z90.710 Acquired absence of both cervix and uterus; Z68.32 Body mass index [BMI] 32.0-32.9, adult; Z82.49 Family history of ischemic heart disease and other diseases of the circulatory system; Z80.49 Family history of malignant neoplasm of other genital organs; Z83.3 Family history of diabetes mellitus
CPT/HCPCS: 76705; 78226; 96374; 96375; A9537

== ENCOUNTER → 2017-12-17 | Outpatient (CLI) | payer OTHER ==
[2017-12-07 12:00] VITALS: BP 108/59
[~2017-12-17] MED LIST changes: +[UNRECOGNIZED DRUG - CODE] IJ
[2017-12-17 09:20] LABS: BASO % 1 % (0-3); EOS # 0.1 x10^3/uL (0.0-0.7); EOS % 3 % (0-3); HEMOGLOBIN 10.6 g/dL (12.0-15.5); LYMPH # 0.8 x10^3/uL (1.0-4.8); LYMPH % 15 % (24-48); MEAN CORPUSCULAR HEMOGLOBIN 33 pg (25-35); MEAN CORPUSCULAR HGB CONC 36 g/dL (31-37); MEAN CORPUSCULAR VOLUME 92 fL (79-100); MONO # 0.4 x10^3/uL (0.0-1.1); MONO % 7 % (0-9); NEUT # 3.8 x10^3uL (1.8-7.7); NEUT % 74 % (31-73); PLATELET COUNT 280 x10^3/uL (140-400); RED BLOOD COUNT 3.25 x10^6/uL (3.50-5.40); RED CELL DISTRIBUTION WIDTH 11.9 % (11.5-14.5); WHITE BLOOD COUNT 5.1 x10^3/uL (4.0-11.0)
[2017-12-17 09:21] LABS: ALBUMIN 3.4 g/dL (3.4-5.0); ALBUMIN/GLOBULIN RATIO 0.8 (1.0-1.7); CALCIUM 8.8 mg/dL (8.5-10.1); GFR 62.4; MAGNESIUM 1.6 mg/dL (1.8-2.4); POTASSIUM 3.3 mmol/L (3.5-5.1); TOTAL BILIRUBIN 0.2 mg/dL (0.2-1.0); TOTAL PROTEIN 7.6 g/dL (6.4-8.2)
== END | disposition home or self-care (01) ==
LOC: LAB 08:44
PROVIDERS: ATTEND Internal Medicine Hematology & Oncology
DX: C53.8 Malignant neoplasm of overlapping sites of cervix uteri (principal)
CPT/HCPCS: 36415; 80053; 83735; 85025

== ENCOUNTER → 2017-12-23 | Outpatient (CLI) | payer OTHER ==
[~2017-12-23] MED LIST changes: +AMOX1TAB61 PO; +CIPR250T30 PO; +CYCL10TA2 PO; +DOXY100C14 PO; +LEVO500T59 PO; +LEVO750T31 PO; +PROM12.553 RC; +RANI-348 PO; -RANI75TA95 PO; +magnesium powder PO
[2017-12-23] MEDS: MAGNESIUM SULFATE 2GM 50 ML IV ONE (11:15)
[2017-12-23] MEDS: HEPARIN PF 500 UNIT/5 ML DISP.SYRIN. IV ONE (13:15)
[2017-12-23 14:09] VITALS: BP 95/36
== END | disposition home or self-care (01) ==
LOC: OPS 13:23
PROVIDERS: ATTEND Internal Medicine Hematology & Oncology
DX: E83.42 Hypomagnesemia (principal); K21.9 Gastro-esophageal reflux disease without esophagitis; I10 Essential (primary) hypertension; E66.9 Obesity, unspecified; I48.91 Unspecified atrial fibrillation; Z79.899 Other long term (current) drug therapy; Z87.891 Personal history of nicotine dependence; Z85.41 Personal history of malignant neoplasm of cervix uteri
CPT/HCPCS: 96365; 96366; J3475; 96523

== ENCOUNTER 2017-12-29 05:31 | Emergency (ER) | payer OTHER ==
[~2017-12-29] VITALS: Ht 167.6 cm; Wt 93.0 kg
[~2017-12-29 05:31] MED LIST changes: -AMOX1TAB61 PO; -CIPR250T30 PO; -CYCL10TA2 PO; -DOXY100C14 PO; -LEVO500T59 PO; -LEVO750T31 PO; -PROM12.553 RC; -RANI-348 PO; +RANI75TA95 PO; -magnesium powder PO
[2017-12-29] MEDS ORDERED: CEFEPIME HCL 2 GM in IV DEXTROSE 5% 100ML 100 ML IV SCH (06:00)
[2017-12-29] MEDS ORDERED: IV NORMAL SALINE 1000ML BAG 1,000 ML IV ONE (06:00)
--- NOTE | 2017-12-29 06:01 | PHYS DOC ---
Past Medical History Past Medical History: Cancer Additional Past Medical Histor: CERVICAL CANCER Past Surgical History: Other Additional Past Surgical Histo: HYSTERECTOMY, Port placement Alcohol Use: None Drug Use: None Adult General Chief Complaint Chief Complaint: FEVER HPI HPI Patient is a 37 year old female with metastatic cervical cancer status post hysterectomy, currently on chemotherapy, last dose 12/18/17 who presents with fever, rigors, sweats, generalized malaise starting approximately 10 hours prior to ED arrival. Fever was 103.2. Patient initially felt better with Tylenol until fever recurred this morning 100 and 101.6. No headache, neck pain , stiffness, cough, chest pain, shortness of breath. Reports lower quadrant cramping which is new and chronic epigastric pain. No vomiting. No dysuria. Reports loose stool which is normal. No redness swelling around port site. Patient received Neupogen one week ago. Patient's oncologist is Dr. Raines.[] Review of Systems Review of Systems ROS as per HPI All other systems were reviewed and found to be within normal limits, except as documented in this note. Current Medications Current Medications Current Medications Medications (Trade) Dose Ordered Sig/Sanna Start Time Stop Time Status Last Admin Dose Admin Cefepime HCl (Maxipime) 2 gm Q8HRS 12/29/17 06:00 Cefepime HCl 2 gm/ Dextrose 100 ml @ 200 mls/hr Q8HRS 12/29/17 06:00 UNV Sodium Chloride 1,000 ml @ 1,000 mls/hr 1X ONCE 12/29/17 06:00 12/29/17 06:59 Allergies Allergies Allergies Coded Allergies Type Severity Reaction Last Updated Verified shellfish derived Allergy Intermediate 12/22/17 Yes ondansetron Adverse Reaction Severe 12/22/17 Yes Physical Exam Physical Exam Constitutional: Generally weak and acutely ill appearing. [] HENT: Normocephalic, atraumatic, bilateral external ears normal, oropharynx moist, no oral exudates, nose normal. [] Eyes: PERRLA, EOMI, conjunctiva normal. [] Neck: Normal range of motion, no tenderness. No neck stiffness[] Cardiovascular:Heart rate regular rhythm, no murmur, no swelling erythema over port site. [] Lungs & Thorax: Bilateral breath sounds clear to auscultation, no rales rhonchi or wheezes. [] Abdomen: Bowel sounds normal, soft, moderate diffuse epigastric pain, min RLQ pain, TTP. [] Skin: Warm, dry, no erythema, no rash. [] Back: No tenderness, no CVA tenderness. [] Neurologic: Alert and oriented X 3, normal motor function, normal sensory function, no focal deficits noted. [] Psychologic: Affect normal, judgement normal, mood normal. [] EKG EKG [] Radiology/Procedures Radiology/Procedures [] Course & Med Decision Making Course & Med Decision Making Pertinent Labs and Imaging studies reviewed. (See chart for details) [Work up in progress. Care endorsed to oncoming ERP at 06:00] Dragon Disclaimer Dragon Disclaimer This electronic medical record was generated, in whole or in part, using a voice recognition dictation system. Departure Departure Referrals: UNKNOWN PCP NAME (PCP) NESSA GARVEY DO Dec 29, 2017 06:01
[2017-12-29 06:07] LABS: BILIRUBIN,URINE NEGATIVE (NEG); CLARITY,URINE CLEAR; COLOR,URINE YELLOW; NITRITE,URINE NEGATIVE (NEG); PH,URINE 7.5; PROTEIN,URINE NEGATIVE (NEG-TRACE); UROBILINOGEN,URINE 0.2 mg/dL (0.2 mg/dL)
[2017-12-29 06:24] LABS: SQUAMOUS EPITHELIAL CELL,UR OCC /LPF
[2017-12-29 06:25] LABS: BACTERIA,URINE FEW /HPF (0-FEW); RBC,URINE 0 /HPF (0-2); WBC,URINE OCC /HPF (0-4)
[2017-12-29] MEDS ORDERED: PROMETHAZINE 12.5 MG TABLET. PO ONE (06:30)
[2017-12-29] MEDS ORDERED: MORPHINE SULFATE 4 MG/ML VIAL. IV ONE (06:30)
[2017-12-29 06:46] LABS: BASO % 0 % (0-3); EOS % 0 % (0-3); HEMOGLOBIN 10.1 g/dL (12.0-15.5); LYMPH # 0.6 x10^3/uL (1.0-4.8); LYMPH % 8 % (24-48); MEAN CORPUSCULAR HEMOGLOBIN 32 pg (25-35); MEAN CORPUSCULAR HGB CONC 35 g/dL (31-37); MEAN CORPUSCULAR VOLUME 93 fL (79-100); MONO # 0.4 x10^3/uL (0.0-1.1); MONO % 6 % (0-9); NEUT # 6.1 x10^3uL (1.8-7.7); NEUT % 86 % (31-73); PLATELET COUNT 139 x10^3/uL (140-400); RED BLOOD COUNT 3.12 x10^6/uL (3.50-5.40); RED CELL DISTRIBUTION WIDTH 12.5 % (11.5-14.5); WHITE BLOOD COUNT 7.2 x10^3/uL (4.0-11.0)
[2017-12-29 06:53] LABS: CALCIUM 9.1 mg/dL (8.5-10.1); CREATININE 0.9 mg/dL (0.6-1.0); GFR 70.5; POTASSIUM 4.3 mmol/L (3.5-5.1)
[2017-12-29 06:59] LABS: ALBUMIN 2.9 g/dL (3.4-5.0); ALBUMIN/GLOBULIN RATIO 0.7 (1.0-1.7); C-REACTIVE PROTEIN 58.7 mg/L (0-3.3); TOTAL BILIRUBIN 0.2 mg/dL (0.2-1.0); TOTAL PROTEIN 6.9 g/dL (6.4-8.2)
[2017-12-29] MEDS: CEFEPIME HCL IV Push 2 GM VIAL. IVP SCH ×3 (07:06→07:45)
--- NOTE | 2017-12-29 07:39 | RAD ---
Portable chest, 12/29/2017: HISTORY: Cough, fever Comparison is made to a study from 12/07/2017. A right Port-A-Cath extends into the superior vena cava. The heart size and pulmonary vascularity are normal. There are granulomatous calcifications in the right chest. There is mild unchanged linear scarring or atelectasis in the right base. The left lung is clear. There is no evidence of pleural fluid. No new abnormality is detected. IMPRESSION: Mild unchanged right basilar linear atelectasis or scarring. Electronically signed by: Enrrique Hoff MD (12/29/2017 7:36 AM) [facility]
[2017-12-29] MEDS ORDERED: PROMETHAZINE IM 25 MG/ML VIAL IM ONE (07:45)
[2017-12-29] MEDS ORDERED: fentaNYL PF VIAL 100 MCG/2 ML VIAL IV ONE (08:15)
[2017-12-29] MEDS ORDERED: LEVO750T31 PO (08:38)
[2017-12-29] MEDS ORDERED: AMOX1TAB61 PO (08:38)
[2017-12-29] MEDS ORDERED: HEPARIN PF 500 UNIT/5 ML DISP.SYRIN. IV ONE (08:45)
[2017-12-29 09:30] VITALS: BP 111/63
[2017-12-29] MEDS ORDERED: MAGNESIUM SULFATE 2GM 50 ML IV ONE (09:30)
== END 2017-12-29 09:40 | disposition home or self-care (01) ==
LOC: ER 05:31
DX: R50.9 Fever, unspecified (principal); R19.7 Diarrhea, unspecified; G89.29 Other chronic pain; R10.30 Lower abdominal pain, unspecified; Z92.21 Personal history of antineoplastic chemotherapy; Z90.710 Acquired absence of both cervix and uterus; Z91.013 Allergy to seafood; Z88.8 Allergy status to other drugs, medicaments and biological substances
CPT/HCPCS: 36415; 71045; 80053; 81001; 83605; 83735; 85025; 86140; 87040; 96361; 96372; 96374; 96375; 96376; 99285; J0692; J2270; J2550; J3010; J7030; Q0169

== ENCOUNTER 2018-01-22 10:17 | Emergency (ER) | payer OTHER ==
[~2018-01-22] VITALS: Ht 167.6 cm; Wt 92.5 kg
[~2018-01-22 10:17] MED LIST changes: +AMOX1TAB61 PO; +CIPR250T30 PO; +DOXY100C14 PO; +LEVO750T31 PO
[2018-01-22] MEDS ORDERED: IV NORMAL SALINE 1000ML BAG 1,000 ML IV SCH (10:47)
--- NOTE | 2018-01-22 10:53 | PHYS DOC ---
Past Medical History Past Medical History: Cancer Additional Past Medical Histor: CERVICAL CANCER Past Surgical History: Other Additional Past Surgical Histo: HYSTERECTOMY, Port placement Alcohol Use: None Drug Use: None Adult General Chief Complaint Chief Complaint: ABDOMINAL PAIN HPI HPI This is a pleasant 38-year-old female presenting the emergency department today with right lower quadrant abdominal pain over the past 7-10 days. Her pain is a sharp shooting pain that is nonradiating nonmigratory, associated with bilateral flank pain. It comes and goes. She has had a fever for the past 4 days as well. ROS neg for cp/soa/n/v. pos for fevers and abd pain. All other review of systems is negative unless otherwise noted in history of present illness. ED course: 38-year-old female status post treatment for cervical cancer with hysterectomy and radiation and chemotherapy for positive nodes. On arrival she is afebrile with a normal heart rate. She is well-appearing on examination. She has mild tenderness in the right lower quadrant. Otherwise minimal CVA tenderness bilaterally. Hemoglobin is about baseline. White blood cell count within normal limits. Otherwise chemistry panel unremarkable. Urinalysis which was obtained in clinic today shows mild positive leuk esterase with negative nitrites. On reexamination the patient is feeling much better. She has a full prescription of Levaquin at home she desires to take for her urinary tract infection. CT is unremarkable for acute pathology.The patient has been examined and was not found to have an emergency medical condition. The patient was then discharged home in stable condition to follow up with their primary care physician over the next 2-3 days. They were to return if their symptoms worsened or if they were concerned for any reason. They were also instructed to return to the emergency department if they were unable to get the recommended and appropriate follow-up. [id number] discharge instructions and return precautions were given. Patient's questions were answered to their satisfaction. Patient is comfortable with plan. Review of Systems Review of Systems SEE ABOVE. Current Medications Current Medications Current Medications Medications (Trade) Dose Ordered Sig/Sanna Start Time Stop Time Status Last Admin Dose Admin Fentanyl Citrate (Fentanyl 2ml Vial) 50 mcg PRN Q30MIN PRN 01/22/18 11:00 01/22/18 12:26 50 MCG Info (CONTRAST GIVEN -- Rx MONITORING) 1 each PRN DAILY PRN 01/22/18 13:00 01/24/18 12:59 Iohexol (Omnipaque 300 Mg/ml) 60 ml 1X ONCE 01/22/18 12:45 01/22/18 12:46 DC 01/22/18 13:10 60 ML Sodium Chloride 1,000 ml @ 1,000 mls/hr Q1H 01/22/18 10:47 01/22/18 11:46 DC 01/22/18 11:15 1,000 MLS/HR Allergies Allergies Allergies Coded Allergies Type Severity Reaction Last Updated Verified shellfish derived Allergy Intermediate 01/13/18 Yes ondansetron Adverse Reaction Severe 01/13/18 Yes Physical Exam Physical Exam SEE ABOVE Constitutional: Well developed, well nourished, no acute distress, non-toxic appearance. [] HENT: Normocephalic, atraumatic, bilateral external ears normal, oropharynx moist, no oral exudates, nose normal. Eyes: PERRLA, EOMI, conjunctiva normal, no discharge. [] Neck: Normal range of motion, no tenderness, supple, no stridor. [] Cardiovascular:Heart rate regular rhythm, no murmur [] Lungs & Thorax: Bilateral breath sounds clear to auscultation [] Abdomen: Bowel sounds normal, soft, ttp in the rlq without rebound tenderness or guarding. Nondistended. no masses, no pulsatile masses. Skin: Warm, dry, no erythema, no rash. [] Back: No tenderness, no CVA tenderness. [] Extremities: No tenderness, no cyanosis, no clubbing, ROM intact, no edema. Neurologic: Alert and oriented X 3, normal motor function, normal sensory function, no focal deficits noted. Psychologic: Affect normal, judgement normal, mood normal. [] Current Patient Data Vital Signs Vital Signs Date Time Temp Pulse Resp B/P (MAP) Pulse Ox O2 Delivery O2 Flow Rate FiO2 01/22/18 12:26 16 01/22/18 10:28 98.4 82 110/56 (74) 95 Room Air 98.4 Lab Values Laboratory Tests Test 01/22/18 11:35 White Blood Count 5.2 x10^3/uL (4.0-11.0) Red Blood Count 2.85 x10^6/uL (3.50-5.40) L Hemoglobin 9.0 g/dL (12.0-15.5) L Hematocrit 25.9 % (36.0-47.0) L Mean Corpuscular Volume 91 fL (79-100) Mean Corpuscular Hemoglobin 32 pg (25-35) Mean Corpuscular Hemoglobin Concent 35 g/dL (31-37) Red Cell Distribution Width 13.4 % (11.5-14.5) Platelet Count 137 x10^3/uL (140-400) L Neutrophils (%) (Auto) 81 % (31-73) H Lymphocytes (%) (Auto) 11 % (24-48) L Monocytes (%) (Auto) 7 % (0-9) Eosinophils (%) (Auto) 0 % (0-3) Basophils (%) (Auto) 0 % (0-3) Neutrophils # (Auto) 4.2 x10^3uL (1.8-7.7) Lymphocytes # (Auto) 0.6 x10^3/uL (1.0-4.8) L Monocytes # (Auto) 0.4 x10^3/uL (0.0-1.1) Eosinophils # (Auto) 0.0 x10^3/uL (0.0-0.7) Basophils # (Auto) 0.0 x10^3/uL (0.0-0.2) Sodium Level 139 mmol/L (136-145) Potassium Level 4.1 mmol/L (3.5-5.1) Chloride Level 102 mmol/L (98-107) Carbon Dioxide Level 25 mmol/L (21-32) Anion Gap 12 (6-14) Blood Urea Nitrogen 18 mg/dL (7-20) Creatinine 1.1 mg/dL (0.6-1.0) H Estimated GFR (Cockcroft-Gault) 55.6 BUN/Creatinine Ratio 16 (6-20) Glucose Level 88 mg/dL (70-99) Calcium Level 9.4 mg/dL (8.5-10.1) Magnesium Level 2.6 mg/dL (1.8-2.4) H Total Bilirubin 0.4 mg/dL (0.2-1.0) Aspartate Amino Transferase (AST) 11 U/L (15-37) L Alanine Aminotransferase (ALT) 16 U/L (14-59) Alkaline Phosphatase 78 U/L (46-116) Total Protein 7.4 g/dL (6.4-8.2) Albumin 3.0 g/dL (3.4-5.0) L Albumin/Globulin Ratio 0.7 (1.0-1.7) L Serum Test, Qualitative Negative (NEG) Laboratory Tests 01/22/18 11:35 Laboratory Tests 01/22/18 11:35 EKG EKG [] Radiology/Procedures Radiology/Procedures [] Course & Med Decision Making Course & Med Decision Making Pertinent Labs and Imaging studies reviewed. (See chart for details) [] Dragon Disclaimer Dragon Disclaimer This electronic medical record was generated, in whole or in part, using a voice recognition dictation system. Departure Departure Impression: Primary Impression: Abdominal pain Additional Impression: UTI (urinary tract infection) Disposition: HOME, SELF-CARE Condition: STABLE Referrals: UNKNOWN PCP NAME (PCP) Patient Instructions: Abdominal Pain Additional Instructions: Thank you for allowing us to participate in your care today. Take 5 days of 500mg by mouth daily of levaquin for your UTI. Return to the emergency department you have any new or worsening symptoms, or if you are concerned for any reason. Return to emergency department if you have any new or concerning symptoms including but not limited to fever, chills, nausea, vomiting, intractable pain, any new rashes, chest pain, shortness of air , uncontrolled bleeding, difficulty breathing, and/or vision loss. Follow up with your primary care physician within 3 days. Call your Primary Doctor tomorrow and inform them of your visit today. If you do not have a primary care provider we are happy to provide you with a list of our primary care providers contact information. This condition should be evaluated by your primary care physician and any recommended consulting services for continued management within 2-3 days after discharge. If at any time, you are having difficulty getting into your primary care doctor or a specialist, return to the emergency department. Scripts Levofloxacin (LEVAQUIN) 500 Mg Tablet 1 TAB PO DAILY, #5 TAB Prov: ELIU BENTLEY MD 01/22/18 Problem Qualifiers ELIU BENTLEY MD Jan 22, 2018 10:53
[2018-01-22] MEDS: fentaNYL PF VIAL 100 MCG/2 ML VIAL IV PRN ×2 (11:15→12:26)
[2018-01-22 11:49] LABS: BASO % 0 % (0-3); EOS % 0 % (0-3); HEMATOCRIT 25.9 % (36.0-47.0); LYMPH # 0.6 x10^3/uL (1.0-4.8); LYMPH % 11 % (24-48); MEAN CORPUSCULAR HEMOGLOBIN 32 pg (25-35); MEAN CORPUSCULAR HGB CONC 35 g/dL (31-37); MEAN CORPUSCULAR VOLUME 91 fL (79-100); MONO # 0.4 x10^3/uL (0.0-1.1); MONO % 7 % (0-9); NEUT # 4.2 x10^3uL (1.8-7.7); NEUT % 81 % (31-73); PLATELET COUNT 137 x10^3/uL (140-400); RED BLOOD COUNT 2.85 x10^6/uL (3.50-5.40); RED CELL DISTRIBUTION WIDTH 13.4 % (11.5-14.5); WHITE BLOOD COUNT 5.2 x10^3/uL (4.0-11.0)
[2018-01-22 11:57] LABS: CALCIUM 9.4 mg/dL (8.5-10.1); CREATININE 1.1 mg/dL (0.6-1.0); GFR 55.6; POTASSIUM 4.1 mmol/L (3.5-5.1)
[2018-01-22 12:02] LABS: ALBUMIN/GLOBULIN RATIO 0.7 (1.0-1.7); TOTAL BILIRUBIN 0.4 mg/dL (0.2-1.0); TOTAL PROTEIN 7.4 g/dL (6.4-8.2)
[2018-01-22 12:04] LABS: PREG TEST PT QUAL NEGATIVE (NEG)
[2018-01-22] MEDS ORDERED: IOHEXOL 300 MG/ML 100ML VIAL. IV ONE (12:45)
[2018-01-22] MEDS ORDERED: CONTRAST GIVEN. MC PRN (13:00)
--- NOTE | 2018-01-22 13:42 | RAD ---
CT scan of the abdomen and pelvis with contrast 01/22/2018 CLINICAL HISTORY: Lower right-sided abdominal pain for 10 days. TECHNIQUE: After the intravenous administration of 60 cc of Omnipaque 300, contiguous, 5 mm axial sections were obtained through the abdomen and pelvis. One or more of the following individualized dose reduction techniques were utilized for this study: 1. Automated exposure control. 2. Adjustment of the mA and/or kV according to patient size. 3. Use of iterative reconstruction technique. FINDINGS: Comparison study is dated 11/13/2017. Images through the lung bases demonstrate linear bands of subsegmental atelectasis and dependent subsegmental atelectasis bilaterally. A 5 mm calcified granuloma is seen involving the right lower lobe. The liver, spleen, pancreas, adrenal glands and kidneys are within normal limits. Atherosclerotic calcification of the abdominal aorta is seen. The abdominal aorta tapers normally. The gallbladder is well-distended. No free fluid or free air is seen within the abdomen. There is no evidence of bowel obstruction. The appendix is well-visualized and is within normal limits. Images through pelvis demonstrate the urinary bladder distended with urine. No free fluid is seen. Minimal S-shaped curvature of the thoracolumbar spine is seen. Degenerative changes are seen involving lower thoracic and throughout the lumbar spine. IMPRESSION: No acute abnormality is seen. Electronically signed by: Surendra Mayers MD (01/22/2018 1:39 PM) [facility]
[2018-01-22 14:00] VITALS: BP 98/56
[2018-01-22] MEDS ORDERED: LEVO500T59 PO (14:30)
[2018-01-22] MEDS ORDERED: HEPARIN PF 500 UNIT/5 ML DISP.SYRIN. IV ONE (15:00)
[2018-02-09] MEDS ORDERED: PROM12.553 RC (00:49)
[2018-02-09] MEDS ORDERED: OXYC5TAB95 PO (00:49)
[2018-02-09] MEDS ORDERED: CYCL10TA2 PO (00:49)
[2018-02-09] MEDS ORDERED: magnesium powder PO (00:49)
== END 2018-01-22 14:52 | disposition home or self-care (01) ==
LOC: ER 10:17
DX: N39.0 Urinary tract infection, site not specified (principal); Z90.710 Acquired absence of both cervix and uterus; Z88.5 Allergy status to narcotic agent; Z91.013 Allergy to seafood
CPT/HCPCS: 36415; 74177; 80053; 83735; 84703; 85025; 96374; 96375; 96376; 99285; J3010; J7030; Q9967

== ENCOUNTER → 2018-02-04 | Outpatient (CLI) | payer OTHER ==
[2018-01-29 15:18] VITALS: BP 103/53
[~2018-02-04] MED LIST changes: +CONTRAST GIVEN. MC PRN; +CYCL10TA2 PO; +IOHEXOL 300 MG/ML 100ML VIAL. IV ONE; +LEVO500T59 PO; +PROM12.553 RC; +magnesium powder PO
--- NOTE | 2018-02-04 09:48 | RAD ---
CT of the chest with contrast, 02/04/2018: HISTORY: Cervical cancer, follow-up mediastinal adenopathy Multidetector CT imaging was performed following an IV bolus injection of iodinated contrast material. Comparison is made to a study from 11/19/2017. A right Port-A-Cath extends to the level the atriocaval junction. The mediastinal adenopathy has regressed. For example, an 11 x 17 mm lymph node located between the proximal innominate and left common carotid arteries on the previous study now measures 5 x 12 mm. A node along the left side of the aortic arch which measured 13 mm in short axis dimension on the previous study now measures 9 mm. No new mediastinal or hilar adenopathy is seen. There are calcified lymph nodes at the right hilum. There is a calcified granuloma in the right base. Mild bibasilar linear opacities are compatible with scarring and/or atelectasis. No pulmonary mass or significant parenchymal nodularity is currently seen. There is a slight pleural thickening posteriorly on both sides probably due to scarring. No pleural fluid is evident. IMPRESSION: 1. Mediastinal adenopathy has regressed since 11/19/2017. 2. Bibasilar linear scarring and/or atelectasis. 3. No new chest abnormality is detected. PQRS Compliance Statement: One or more of the following individualized dose reduction techniques were utilized for this examination: 1. Automated exposure control 2. Adjustment of the mA and/or kV according to patient size 3. Use of iterative reconstruction technique Electronically signed by: Enrrique Hoff MD (02/04/2018 9:45 AM) [facility]
== END | disposition home or self-care (01) ==
LOC: CT 09:09
PROVIDERS: ATTEND Internal Medicine Hematology & Oncology
DX: C53.8 Malignant neoplasm of overlapping sites of cervix uteri (principal); R91.1 Solitary pulmonary nodule
CPT/HCPCS: 71260; Q9967

== ENCOUNTER 2018-02-23 15:16 | Emergency (ER) | payer OTHER ==
[~2018-02-23] VITALS: Ht 167.6 cm; Wt 90.7 kg
[~2018-02-23 15:16] MED LIST changes: -CONTRAST GIVEN. MC PRN; -IOHEXOL 300 MG/ML 100ML VIAL. IV ONE; -OXYC-323 PO; +OXYC1TAB15 PO; +OXYC5TAB4 PO; -OXYC5TAB95 PO; +RANI-348 PO; -RANI75TA95 PO
[2018-02-23 15:43] LABS: BASO % 1 % (0-3); EOS # 0.1 x10^3/uL (0.0-0.7); EOS % 1 % (0-3); HEMATOCRIT 26.9 % (36.0-47.0); HEMOGLOBIN 9.4 g/dL (12.0-15.5); LYMPH # 0.9 x10^3/uL (1.0-4.8); LYMPH % 21 % (24-48); MEAN CORPUSCULAR HEMOGLOBIN 33 pg (25-35); MEAN CORPUSCULAR HGB CONC 35 g/dL (31-37); MEAN CORPUSCULAR VOLUME 95 fL (79-100); MONO # 0.4 x10^3/uL (0.0-1.1); MONO % 10 % (0-9); NEUT % 68 % (31-73); PLATELET COUNT 203 x10^3/uL (140-400); RED BLOOD COUNT 2.85 x10^6/uL (3.50-5.40); RED CELL DISTRIBUTION WIDTH 19.6 % (11.5-14.5); WHITE BLOOD COUNT 4.5 x10^3/uL (4.0-11.0)
--- NOTE | 2018-02-23 15:44 | EKG ---
[facility] [address] [place] [address] Test Date: 2018-02-23 Test Time: 15:38:43 Pat Name: AAMIR METCALF Department: Room: Gender: F [employer]: : 1980 Requested By: CLAUDE ORTIZ Order Number: [id number] Reading MD: Aakash Tidwell Measurements Intervals [place] Rate: 61 P: 32 W[place]: 146 QRS: 30 QRSD: 76 T: 51 QT: 388 QTc: 392 Interpretive Statements SINUS RHYTHM NONSPECIFIC ST-T WAVE CHANGES. Electronically Signed On 02-24-2018 9:49:02 [employer] by Aakash Tidwell
[2018-02-23] MEDS ORDERED: IV NORMAL SALINE 1000ML BAG 1,000 ML IV ONE (15:45)
[2018-02-23] MEDS ORDERED: MAGNESIUM SULFATE 2GM 50 ML IV ONE (15:45)
[2018-02-23 15:54] LABS: CREATININE 0.9 mg/dL (0.6-1.0); GFR 70.1; POTASSIUM 4.2 mmol/L (3.5-5.1)
--- NOTE | 2018-02-23 15:58 | RAD ---
EXAM: Chest, single view. HISTORY: Palpitations. COMPARISON: 02/08/2018 FINDINGS: A frontal view of the chest is obtained. There is stable linear right middle lobe and bilateral lower lobe atelectasis or scarring. There is no consolidation, pleural effusion or pneumothorax. The heart is normal in size. There is a right chest wall port catheter with the tip in the superior cava. IMPRESSION: Stable right middle and bilateral lower lobe atelectasis or scarring. Electronically signed by: Katelyn Ohara MD (02/23/2018 3:55 PM) [facility]
[2018-02-23 15:59] LABS: ALBUMIN 3.5 g/dL (3.4-5.0); ALBUMIN/GLOBULIN RATIO 0.8 (1.0-1.7); TOTAL BILIRUBIN 0.3 mg/dL (0.2-1.0)
[2018-02-23 17:00] VITALS: BP 109/65
== END 2018-02-23 17:32 | disposition home or self-care (01) ==
LOC: ER 15:16
DX: E86.0 Dehydration (principal); D64.9 Anemia, unspecified
CPT/HCPCS: 36415; 71045; 80053; 82550; 83605; 83735; 84484; 85025; 85379; 87040; 93005; 96365; 99284; J3475; J7030

== ENCOUNTER 2018-03-16 20:13 | Emergency (ER) | payer OTHER ==
[~2018-03-16] VITALS: Ht 167.6 cm; Wt 91.6 kg
[2018-03-16] MEDS ORDERED: NEOMY/BACITR/POLYMYXIN OINT PACKET. TP ONE (21:00)
[2018-03-16] MEDS ORDERED: CLINDAMYCIN 600MG PREMIX 50 ML IV ONE (21:00)
[2018-03-16] MEDS ORDERED: fentaNYL PF VIAL 100 MCG/2 ML VIAL IV ONE (21:00)
[2018-03-16] MEDS ORDERED: LIDOCAINE 2%/EPI 1:100,000 20 ML VIAL. IJ ONE (21:00)
[2018-03-16] MEDS ORDERED: IV NORMAL SALINE 1000ML BAG 1,000 ML IV ONE (21:00)
[2018-03-16 21:17] LABS: BASO % 0 % (0-3); EOS % 0 % (0-3); HEMATOCRIT 23.7 % (36.0-47.0); HEMOGLOBIN 8.2 g/dL (12.0-15.5); LYMPH # 0.9 x10^3/uL (1.0-4.8); LYMPH % 24 % (24-48); MEAN CORPUSCULAR HEMOGLOBIN 33 pg (25-35); MEAN CORPUSCULAR HGB CONC 35 g/dL (31-37); MEAN CORPUSCULAR VOLUME 96 fL (79-100); MONO # 0.4 x10^3/uL (0.0-1.1); MONO % 12 % (0-9); NEUT # 2.4 x10^3uL (1.8-7.7); NEUT % 64 % (31-73); PLATELET COUNT 121 x10^3/uL (140-400); RED BLOOD COUNT 2.46 x10^6/uL (3.50-5.40); WHITE BLOOD COUNT 3.7 x10^3/uL (4.0-11.0)
[2018-03-16 22:30] VITALS: BP 119/69
[2018-03-16] MEDS ORDERED: CLIN300C8 PO (23:00)
--- NOTE | 2018-03-16 23:01 | PHYS DOC ---
Past Medical History Past Medical History: Cancer Additional Past Medical Histor: CERVICAL CANCER Past Surgical History: Hysterectomy Additional Past Surgical Histo: HYSTERECTOMY, Port placement Alcohol Use: None Drug Use: None Adult General Chief Complaint Chief Complaint: TOE PROBLEM HPI HPI Patient is a 38 year old [f__sex] who presents with [] Review of Systems Review of Systems Constitutional: Denies fever or chills [] Eyes: Denies change in visual acuity, redness, or eye pain [] HENT: Denies nasal congestion or sore throat [] Respiratory: Denies cough or shortness of breath [] Cardiovascular: No additional information not addressed in HPI [] GI: Denies abdominal pain, nausea, vomiting, bloody stools or diarrhea [] : Denies dysuria or hematuria [] Musculoskeletal: Denies back pain or joint pain [] Integument: Denies rash or skin lesions [] Neurologic: Denies headache, focal weakness or sensory changes [] Endocrine: Denies polyuria or polydipsia [] All other systems were reviewed and found to be within normal limits, except as documented in this note. Current Medications Current Medications Current Medications Medications (Trade) Dose Ordered Sig/Sanna Start Time Stop Time Status Last Admin Dose Admin Clindamycin Phosphate 50 ml @ 100 mls/hr 1X ONCE 03/16/18 21:00 03/16/18 21:29 DC 03/16/18 21:24 100 MLS/HR Fentanyl Citrate (Fentanyl 2ml Vial) 75 mcg 1X ONCE 03/16/18 21:00 03/16/18 21:01 DC 03/16/18 21:23 75 MCG Lidocaine/ Epinephrine (LIDOCAINE 2%-EPI 1:100,000 multi-dose) 20 ml 1X ONCE 03/16/18 21:00 03/16/18 21:01 DC 03/16/18 21:00 20 ML Neomycin/ Polymyxin/ Bacitracin (Triple Antibiotic Ointment) 1 pkt 1X ONCE 03/16/18 21:00 03/16/18 21:01 DC 03/16/18 21:24 1 PKT Sodium Chloride 1,000 ml @ 1,000 mls/hr 1X ONCE 03/16/18 21:00 03/16/18 22:01 DC 03/16/18 21:23 1,000 MLS/HR Allergies Allergies Allergies Coded Allergies Type Severity Reaction Last Updated Verified shellfish derived Allergy Intermediate 03/11/18 Yes ondansetron Adverse Reaction Severe 03/11/18 Yes Physical Exam Physical Exam Constitutional: Well developed, well nourished, no acute distress, non-toxic appearance. [] HENT: Normocephalic, atraumatic, bilateral external ears normal, oropharynx moist, no oral exudates, nose normal. [] Eyes: PERRLA, EOMI, conjunctiva normal, no discharge. [] Neck: Normal range of motion, no tenderness, supple, no stridor. [] Cardiovascular:Heart rate regular rhythm, no murmur [] Lungs & Thorax: Bilateral breath sounds clear to auscultation [] Abdomen: Bowel sounds normal, soft, no tenderness, no masses, no pulsatile masses. [] Skin: Warm, dry, no erythema, no rash. [] Back: No tenderness, no CVA tenderness. [] Extremities: No tenderness, no cyanosis, no clubbing, ROM intact, no edema. [] Neurologic: Alert and oriented X 3, normal motor function, normal sensory function, no focal deficits noted. [] Psychologic: Affect normal, judgement normal, mood normal. [] Current Patient Data Vital Signs Vital Signs Date Time Temp Pulse Resp B/P (MAP) Pulse Ox O2 Delivery O2 Flow Rate FiO2 03/16/18 22:30 82 18 119/69 (86) 99 03/16/18 21:23 Room Air 03/16/18 20:59 98.2 98.2 Lab Values Laboratory Tests Test 03/16/18 21:01 White Blood Count 3.7 x10^3/uL (4.0-11.0) L Red Blood Count 2.46 x10^6/uL (3.50-5.40) L Hemoglobin 8.2 g/dL (12.0-15.5) L Hematocrit 23.7 % (36.0-47.0) L Mean Corpuscular Volume 96 fL (79-100) Mean Corpuscular Hemoglobin 33 pg (25-35) Mean Corpuscular Hemoglobin Concent 35 g/dL (31-37) Red Cell Distribution Width 20.0 % (11.5-14.5) H Platelet Count 121 x10^3/uL (140-400) L Neutrophils (%) (Auto) 64 % (31-73) Lymphocytes (%) (Auto) 24 % (24-48) Monocytes (%) (Auto) 12 % (0-9) H Eosinophils (%) (Auto) 0 % (0-3) Basophils (%) (Auto) 0 % (0-3) Neutrophils # (Auto) 2.4 x10^3uL (1.8-7.7) Lymphocytes # (Auto) 0.9 x10^3/uL (1.0-4.8) L Monocytes # (Auto) 0.4 x10^3/uL (0.0-1.1) Eosinophils # (Auto) 0.0 x10^3/uL (0.0-0.7) Basophils # (Auto) 0.0 x10^3/uL (0.0-0.2) Lactic Acid Level 0.7 mmol/L (0.4-2.0) Laboratory Tests 03/16/18 21:01 EKG EKG [] Radiology/Procedures Radiology/Procedures [] Course & Med Decision Making Course & Med Decision Making Pertinent Labs and Imaging studies reviewed. (See chart for details) [] Dragon Disclaimer Dragon Disclaimer This electronic medical record was generated, in whole or in part, using a voice recognition dictation system. Departure Departure Impression: Primary Impression: Paronychia Disposition: 01 HOME, SELF-CARE Condition: STABLE Referrals: ALYSSA MARTELL MD (PCP) POWER MEHTA MD Patient Instructions: Paronychia, [id number] Scripts Clindamycin Hcl (CLINDAMYCIN HCL) 300 Mg Capsule 1 CAP PO TID for Infection for 7 Days, #21 CAP Prov: WINNIE REYES DO 03/16/18 WINNIE REYES DO Mar 16, 2018 23:01
[2018-03-16] MEDS ORDERED: HEPARIN PF 500 UNIT/5 ML DISP.SYRIN. IV ONE (23:30)
== END 2018-03-16 23:22 | disposition home or self-care (01) ==
LOC: ER 20:13
DX: L03.031 Cellulitis of right toe (principal); Z88.6 Allergy status to analgesic agent; Z91.013 Allergy to seafood
CPT/HCPCS: 36415; 83605; 85025; 96365; 96372; 96375; 99284; J3010; J3490; J7030; 99283-25

== ENCOUNTER → 2018-04-05 | Outpatient (CLI) | payer OTHER ==
[2018-03-19 08:29] VITALS: BP 117/70
[~2018-04-05] MED LIST changes: +CLIN300C8 PO
[2018-04-05 12:19] LABS: CALCIUM 9.6 mg/dL (8.5-10.1); CREATININE 1.1 mg/dL (0.6-1.0); GFR 55.6; MAGNESIUM 2.1 mg/dL (1.8-2.4); POTASSIUM 4.6 mmol/L (3.5-5.1)
== END | disposition home or self-care (01) ==
LOC: SPEC 11:57
PROVIDERS: ATTEND Nurse Practitioner Adult Health
DX: R19.7 Diarrhea, unspecified (principal)
CPT/HCPCS: 36415; 80048; 83735; 87493

== ENCOUNTER 2018-04-22 19:41 | Emergency (ER) | payer OTHER ==
[~2018-04-22] VITALS: Ht 165.1 cm; Wt 94.3 kg
[~2018-04-22 19:41] MED LIST changes: +METR500T PO; +VANC500V PO
[2018-04-22] MEDS ORDERED: OXYMETAZOLINE 0.05% NASAL SPRAY 30ML BOTTLE. NS ONE ×2 (19:45→20:00)
--- NOTE | 2018-04-22 20:10 | PHYS DOC ---
Past Medical History Past Medical History: Cancer Additional Past Medical Histor: CERVICAL CANCER Past Surgical History: Hysterectomy Additional Past Surgical Histo: HYSTERECTOMY, Port placement Alcohol Use: None Drug Use: None Adult General Chief Complaint Chief Complaint: NOSEBLEED HPI HPI Patient is a 38 year old female who presents with nose bleed. Patient states her nose started bleeding around 3:00 today. She tried multiple interventions at home without success. She tried holding pressure. She tried placing tampons in her nose. These did not stop the bleeding so she came to the ER. The patient is well-known to this emergency room. 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 Her last round of chemotherapy was 6 days earlier. She does receive Neulasta. She does not have any other complaints today. No fevers. No bleeding from any other sites. She has not had this problem until now throughout the course of her therapies. Review of Systems Review of Systems Constitutional: Denies fever or chills Eyes: Denies change in visual acuity HENT: as documented above Respiratory: Denies cough or shortness of breath Cardiovascular: No additional information not addressed in HPI GI: Denies abdominal pain Musculoskeletal: Denies back pain Integument: Denies rash or skin lesions Neurologic: Denies headache All other systems were reviewed and found to be within normal limits, except as documented in this note. Current Medications Current Medications Current Medications Medications (Trade) Dose Ordered Sig/Sanna Start Time Stop Time Status Last Admin Dose Admin Amoxicillin/ Clavulanate Potassium (Augmentin 875/ 125mg) 1 tab 1X ONCE 04/22/18 21:45 04/22/18 21:46 DC 04/22/18 21:42 1 TAB Fentanyl Citrate (Fentanyl 2ml Vial) 100 mcg 1X ONCE 04/22/18 20:15 04/22/18 20:17 DC 04/22/18 20:15 100 MCG Heparin Sodium (Porcine) (Hep Lock Adult) 500 unit 1X ONCE 04/22/18 23:00 04/22/18 23:00 DC Oxymetazoline HCl (Afrin) 2 spray 1X ONCE 04/22/18 20:00 04/22/18 20:12 DC 04/22/18 20:00 2 SPRAY Sodium Chloride 1,000 ml @ 1,000 mls/hr 1X ONCE 04/22/18 21:15 04/22/18 21:36 DC 04/22/18 21:15 1,000 MLS/HR Allergies Allergies Allergies Coded Allergies Type Severity Reaction Last Updated Verified shellfish derived Allergy Intermediate 04/16/18 Yes ondansetron Adverse Reaction Severe 04/16/18 Yes Physical Exam Physical Exam Constitutional: Well developed, well nourished, no acute distress, non-toxic appearance HENT: Normocephalic, atraumatic, bilateral external ears normal, oropharynx moist, brisk trickle of red blood from the left naris Eyes: PERRLA, EOMI, conjunctiva normal Neck: Normal range of motion, no tenderness Cardiovascular:Heart rate regular rhythm Lungs & Thorax: Bilateral breath sounds clear Skin: Warm Back: No tenderness Extremities: No edema Neurologic: Alert and oriented X 3 Psychologic: Affect normal Current Patient Data Vital Signs Vital Signs Date Time Temp Pulse Resp B/P (MAP) Pulse Ox O2 Delivery O2 Flow Rate FiO2 04/22/18 21:40 83 20 154/90 (111) Room Air 04/22/18 20:30 98 04/22/18 19:43 97.9 97.9 Lab Values Laboratory Tests Test 04/22/18 20:10 White Blood Count 5.0 x10^3/uL (4.0-11.0) Red Blood Count 2.25 x10^6/uL (3.50-5.40) L Hemoglobin 7.5 g/dL (12.0-15.5) L Hematocrit 22.3 % (36.0-47.0) L Mean Corpuscular Volume 99 fL (79-100) Mean Corpuscular Hemoglobin 34 pg (25-35) Mean Corpuscular Hemoglobin Concent 34 g/dL (31-37) Red Cell Distribution Width 17.4 % (11.5-14.5) H Platelet Count 51 x10^3/uL (140-400) L Neutrophils (%) (Auto) 79 % (31-73) H Lymphocytes (%) (Auto) 16 % (24-48) L Monocytes (%) (Auto) 3 % (0-9) Eosinophils (%) (Auto) 1 % (0-3) Basophils (%) (Auto) 0 % (0-3) Neutrophils # (Auto) 3.9 x10^3uL (1.8-7.7) Lymphocytes # (Auto) 0.8 x10^3/uL (1.0-4.8) L Monocytes # (Auto) 0.2 x10^3/uL (0.0-1.1) Eosinophils # (Auto) 0.1 x10^3/uL (0.0-0.7) Basophils # (Auto) 0.0 x10^3/uL (0.0-0.2) Prothrombin Time 13.5 SEC (11.7-14.0) Prothrombin Time INR 1.1 (0.8-1.1) PTT 39 SEC (24-38) H Sodium Level 142 mmol/L (136-145) Potassium Level 4.2 mmol/L (3.5-5.1) Chloride Level 105 mmol/L (98-107) Carbon Dioxide Level 26 mmol/L (21-32) Anion Gap 11 (6-14) Blood Urea Nitrogen 31 mg/dL (7-20) H Creatinine 1.3 mg/dL (0.6-1.0) H Estimated GFR (Cockcroft-Gault) 45.8 Glucose Level 102 mg/dL (70-99) H Calcium Level 8.5 mg/dL (8.5-10.1) Total Bilirubin 0.2 mg/dL (0.2-1.0) Direct Bilirubin 0.1 mg/dL (0.0-0.2) Aspartate Amino Transferase (AST) 13 U/L (15-37) L Alanine Aminotransferase (ALT) 15 U/L (14-59) Alkaline Phosphatase 87 U/L (46-116) Total Protein 6.7 g/dL (6.4-8.2) Albumin 3.2 g/dL (3.4-5.0) L Laboratory Tests 04/22/18 20:10 Laboratory Tests 04/22/18 20:10 EKG EKG [] Radiology/Procedures Radiology/Procedures [] Course & Med Decision Making Course & Med Decision Making Pertinent Labs and Imaging studies reviewed. (See chart for details) 20:05: Is evaluated. She does have active bleeding from the left naris. Attempts have already been made to hold pressure to the site. The patient was also given Afrin sprays which did not help with her bleeding. Plan is to check platelets and hemoglobin since the patient is receiving chemotherapy. Will place packing in the left neck. 20:20: Packing is placed in the left ear. The packing is placed with ease and with minimal resistance. The patient tolerates well. Will observe until bleeding is controlled. 21:30: Labs are reviewed. Platelets are 51. Hemoglobin is depressed but at baseline according to patient. Currently, she has no active bleeding from the naris. Creatinine is mildly elevated. Patient states she has had this intermittently throughout the course of her treatments. 22:15: Bleeding is controlled at this time. Plan is to leave the packing in place. The patient is advised to contact ENT for close follow-up. She will call them tomorrow. She is placed on empiric CAT about X, Augmentin. Return to the ER for any new or acute bleeding. Dragon Disclaimer Dragon Disclaimer This electronic medical record was generated, in whole or in part, using a voice recognition dictation system. Departure Departure Disposition: 01 HOME, SELF-CARE Condition: GOOD Referrals: ALYSSA MARTELL MD (PCP) Scripts Amoxicillin/Potassium Clav (AUGMENTIN 875-125 TABLET) 1 Each Tablet 1 TAB PO BID, #14 TAB Prov: DANICA HONG DO 04/22/18 DANICA HONG DO Apr 22, 2018 20:10
[2018-04-22] MEDS ORDERED: fentaNYL PF VIAL 100 MCG/2 ML VIAL ONE (20:12)
[2018-04-22] MEDS ORDERED: fentaNYL PF VIAL 100 MCG/2 ML VIAL IV ONE (20:15)
[2018-04-22 20:19] LABS: BASO % 0 % (0-3); EOS # 0.1 x10^3/uL (0.0-0.7); EOS % 1 % (0-3); HEMATOCRIT 22.3 % (36.0-47.0); HEMOGLOBIN 7.5 g/dL (12.0-15.5); LYMPH # 0.8 x10^3/uL (1.0-4.8); LYMPH % 16 % (24-48); MEAN CORPUSCULAR HEMOGLOBIN 34 pg (25-35); MEAN CORPUSCULAR HGB CONC 34 g/dL (31-37); MEAN CORPUSCULAR VOLUME 99 fL (79-100); MONO # 0.2 x10^3/uL (0.0-1.1); MONO % 3 % (0-9); NEUT # 3.9 x10^3uL (1.8-7.7); NEUT % 79 % (31-73); PLATELET COUNT 51 x10^3/uL (140-400); RED BLOOD COUNT 2.25 x10^6/uL (3.50-5.40); RED CELL DISTRIBUTION WIDTH 17.4 % (11.5-14.5)
[2018-04-22 20:27] LABS: CALCIUM 8.5 mg/dL (8.5-10.1); CREATININE 1.3 mg/dL (0.6-1.0); GFR 45.8; POTASSIUM 4.2 mmol/L (3.5-5.1)
[2018-04-22 20:29] LABS: PROTHROMBIN TIME PATIENT 13.5 SEC (11.7-14.0)
[2018-04-22 20:33] LABS: ALBUMIN 3.2 g/dL (3.4-5.0); DIRECT BILIRUBIN 0.1 mg/dL (0.0-0.2); TOTAL BILIRUBIN 0.2 mg/dL (0.2-1.0); TOTAL PROTEIN 6.7 g/dL (6.4-8.2)
[2018-04-22] MEDS ORDERED: IV NORMAL SALINE 1000ML BAG 1,000 ML IV ONE (21:15)
[2018-04-22 21:40] VITALS: BP 154/90
[2018-04-22] MEDS ORDERED: AMOXICILLIN/K CLAV 875/125MG TABLET. PO ONE (21:45)
[2018-04-22] MEDS ORDERED: AMOX1TAB61 PO (22:02)
[2018-04-22] MEDS ORDERED: HEPARIN PF 500 UNIT/5 ML DISP.SYRIN. IV ONE ×2 (22:30→23:00)
== END 2018-04-22 22:42 | disposition home or self-care (01) ==
LOC: ER 19:41
DX: R04.0 Epistaxis (principal); Z88.5 Allergy status to narcotic agent; Z91.013 Allergy to seafood
CPT/HCPCS: 30901; 36415; 80048; 80076; 85025; 85610; 85730; 96374; 99284; J3010; J7030

== ENCOUNTER 2018-05-03 18:38 | Inpatient (IN) | payer OTHER ==
[~2018-05-03] VITALS: Ht 167.6 cm; Wt 93.0 kg
[~2018-05-03 18:38] MED LIST changes: -HEPARIN PF 500 UNIT/5 ML DISP.SYRIN. IV ONE; -IOHEXOL 240 MG/ML 50ML VIAL. PO ONE; -IOHEXOL 300 MG/ML 100ML VIAL. IV ONE; -LINE600T PO
[2018-05-03] MEDS ORDERED: fentaNYL PF VIAL 100 MCG/2 ML VIAL IV ONE ×2 (19:00→21:15)
[2018-05-03] MEDS ORDERED: IV NORMAL SALINE 1000ML BAG 1,000 ML IV ONE (19:00)
[2018-05-03] MEDS ORDERED: CLINDAMYCIN 600MG PREMIX 50 ML IV ONE (19:00)
--- NOTE | 2018-05-03 19:12 | PHYS DOC ---
Past Medical History Past Medical History: Cancer, Other Additional Past Medical Histor: CERVICAL CANCER Past Surgical History: Hysterectomy, Other Additional Past Surgical Histo: HYSTERECTOMY, Port placement Alcohol Use: None Drug Use: None Adult General Chief Complaint Chief Complaint: CELLULITIS HPI HPI 38-year-old female with past medical history of cervical cancer who is currently undergoing chemotherapy presents with report of right facial redness and swelling to lower eyelid which started Thursday04/30/2018. Patient reports was initially seen by her family physician who sent her to go see her oncologist who then sent her to see an debt counselor. Reports debt counselor did not see any eye involvement. Was unsure if it might be shingles versus infectious process. Patient reports that Dr. Raines (oncology) requested patient presented to the ER for admission as patient is unable to tolerate oral antibiotics and/or antivirals. Patient reports she gets intractable nausea/ vomiting/diarrhea anytime she is on any oral antibiotics. Denies fever or chills. Denies other rash. Denies numbness or tingling. Reports some discomfort when moving her eye however denies actual eye pain. Denies . Review of Systems Review of Systems Constitutional: Denies fever or chills [] Eyes: Denies change in visual acuity or eye pain; reports right lower eyelid swelling and redness [] HENT: Denies nasal congestion or sore throat [] Respiratory: Denies cough or shortness of breath [] Cardiovascular: Denies chest pain GI: Denies abdominal pain, nausea, vomiting, or diarrhea [] : Denies dysuria or hematuria [] Integument: Reports skin lesions to right face and lower right eyelid Neurologic: Denies headache, focal weakness or sensory changes [] Complete systems were reviewed and found to be within normal limits, except as documented in this note. Current Medications Current Medications Current Medications Medications (Trade) Dose Ordered Sig/Sanna Start Time Stop Time Status Last Admin Dose Admin Acyclovir Sodium 600 mg/Dextrose 112 ml @ 112 mls/hr 1X ONCE 05/03/18 19:30 05/03/18 20:29 DC Clindamycin Phosphate 50 ml @ 100 mls/hr 1X ONCE 05/03/18 19:00 05/03/18 19:29 DC 05/03/18 19:57 100 MLS/HR Fentanyl Citrate (Fentanyl 2ml Vial) 50 mcg 1X ONCE 05/03/18 19:00 05/03/18 19:06 DC 05/03/18 19:57 50 MCG Sodium Chloride 1,000 ml @ 1,000 mls/hr 1X ONCE 05/03/18 19:00 05/03/18 19:59 DC 05/03/18 19:56 1,000 MLS/HR Allergies Allergies Allergies Coded Allergies Type Severity Reaction Last Updated Verified shellfish derived Allergy Intermediate 04/16/18 Yes ondansetron Adverse Reaction Severe 04/16/18 Yes Physical Exam Physical Exam Constitutional: Well developed, well nourished, no acute distress, non-toxic appearance. [] HENT: Normocephalic, atraumatic, oropharynx moist Eyes: PERRL, EOMI, conjunctiva normal, no discharge, right facial edema with some erythema and small focal lesions with white center x 3 just below right eyelid Neck: Normal range of motion, no tenderness, supple, no meningeal signs[] Cardiovascular: Heart rate regular rhythm, no murmur [] Lungs & Thorax: Bilateral breath sounds clear to auscultation [] Abdomen: Soft, no tenderness Skin: Warm, dry, no erythema, facial rash as above Extremities: ROM intact, no edema. [] Neurologic: Alert and oriented X 3, normal motor function, normal sensory function, no focal deficits noted. [] Psychologic: Affect normal, judgement normal, mood normal. [] Current Patient Data Vital Signs Vital Signs Date Time Temp Pulse Resp B/P (MAP) Pulse Ox O2 Delivery O2 Flow Rate FiO2 05/03/18 18:45 98.1 75 18 159/90 (113) 100 Room Air 98.1 Lab Values Laboratory Tests Test 05/03/18 19:15 05/03/18 19:45 Urine Collection Type Unknown Urine Color Yellow Urine Clarity Clear Urine pH 5.5 Urine Specific Donner >=1.030 Urine Protein 100 mg/dL (NEG-TRACE) Urine Glucose (UA) Negative mg/dL (NEG) Urine Ketones (Stick) Negative mg/dL (NEG) Urine Blood Negative (NEG) Urine Nitrite Negative (NEG) Urine Bilirubin Negative (NEG) Urine Urobilinogen Dipstick 0.2 mg/dL (0.2 mg/dL) Urine Leukocyte Esterase Negative (NEG) Urine RBC Occ /HPF (0-2) Urine WBC 20-40 /HPF (0-4) Urine Squamous Epithelial Cells Mod /LPF Urine Bacteria Few /HPF (0-FEW) Urine Hyaline Casts Few /HPF Urine Mucus Mod /LPF Sodium Level 140 mmol/L (136-145) Potassium Level 3.7 mmol/L (3.5-5.1) Chloride Level 106 mmol/L (98-107) Carbon Dioxide Level 26 mmol/L (21-32) Anion Gap 8 (6-14) Blood Urea Nitrogen 23 mg/dL (7-20) H Creatinine 1.1 mg/dL (0.6-1.0) H Estimated GFR (Cockcroft-Gault) 55.6 BUN/Creatinine Ratio 21 (6-20) H Glucose Level 103 mg/dL (70-99) H Lactic Acid Level 1.1 mmol/L (0.4-2.0) Calcium Level 9.5 mg/dL (8.5-10.1) Total Bilirubin 0.2 mg/dL (0.2-1.0) Aspartate Amino Transferase (AST) 15 U/L (15-37) Alanine Aminotransferase (ALT) 16 U/L (14-59) Alkaline Phosphatase 82 U/L (46-116) Total Protein 7.1 g/dL (6.4-8.2) Albumin 3.2 g/dL (3.4-5.0) L Albumin/Globulin Ratio 0.8 (1.0-1.7) L Laboratory Tests 05/03/18 19:45 EKG EKG [] Radiology/Procedures Radiology/Procedures [] Course & Med Decision Making Course & Med Decision Making Pertinent Labs and Imaging studies reviewed. (See chart for details) Patient with history of cervical cancer who is currently on chemotherapy who presents with facial rash. Hx of being fully evaluated by ophthalmology and UA negative LE and nitrite. Squamous cells noted. Doubt infection as more likely contamination. Dragon Disclaimer Dragon Disclaimer This electronic medical record was generated, in whole or in part, using a voice recognition dictation system. Departure Departure Impression: Primary Impression: Facial rash Additional Impressions: Immunocompromised state Pancytopenia Disposition: 09 ADMITTED INPATIENT Admitting Physician: Jeannette Bowman Condition: STABLE Referrals: JEANNETTE BOWMAN MD (PCP) Problem Qualifiers WINNIE REYES DO May 03, 2018 19:12
[2018-05-03] MEDS ORDERED: ACYCLOVIR SODIUM IV ONE (19:30)
[2018-05-03] MEDS ORDERED: DEXTROSE 5% IV ONE (19:30)
[2018-05-03 19:33] LABS: BILIRUBIN,URINE NEGATIVE (NEG); CLARITY,URINE CLEAR; COLOR,URINE YELLOW; NITRITE,URINE NEGATIVE (NEG); PH,URINE 5.5; PROTEIN,URINE 100 mg/dL (NEG-TRACE); UROBILINOGEN,URINE 0.2 mg/dL (0.2 mg/dL)
[2018-05-03 19:36] LABS: SQUAMOUS EPITHELIAL CELL,UR MOD /LPF
[2018-05-03 19:37] LABS: BACTERIA,URINE FEW /HPF (0-FEW); RBC,URINE OCC /HPF (0-2); WBC,URINE 20-40 /HPF (0-4)
[2018-05-03 19:38] LABS: HYALINE CASTS, URINE FEW /HPF
[2018-05-03 20:18] LABS: ALBUMIN 3.2 g/dL (3.4-5.0); ALBUMIN/GLOBULIN RATIO 0.8 (1.0-1.7); CALCIUM 9.5 mg/dL (8.5-10.1); CREATININE 1.1 mg/dL (0.6-1.0); GFR 55.6; POTASSIUM 3.7 mmol/L (3.5-5.1); TOTAL BILIRUBIN 0.2 mg/dL (0.2-1.0); TOTAL PROTEIN 7.1 g/dL (6.4-8.2)
[2018-05-03 20:33] LABS: BASO % 0 % (0-3); EOS % 1 % (0-3); HEMATOCRIT 22.1 % (36.0-47.0); HEMOGLOBIN 7.3 g/dL (12.0-15.5); LYMPH # 0.8 x10^3/uL (1.0-4.8); LYMPH % 25 % (24-48); MEAN CORPUSCULAR HEMOGLOBIN 33 pg (25-35); MEAN CORPUSCULAR HGB CONC 33 g/dL (31-37); MEAN CORPUSCULAR VOLUME 100 fL (79-100); MONO # 0.3 x10^3/uL (0.0-1.1); MONO % 11 % (0-9); NEUT % 62 % (31-73); PLATELET COUNT 71 x10^3/uL (140-400); RED BLOOD COUNT 2.21 x10^6/uL (3.50-5.40); RED CELL DISTRIBUTION WIDTH 17.5 % (11.5-14.5); WHITE BLOOD COUNT 3.3 x10^3/uL (4.0-11.0)
[2018-05-03] MEDS ORDERED: fentaNYL PF VIAL 100 MCG/2 ML VIAL IV PRN (21:00)
[2018-05-03 22:00] VITALS: BP 119/65
[2018-05-03] MEDS ORDERED: CYCLOBENZAPRINE 10 MG TABLET. PO PRN (22:30)
[2018-05-03] MEDS ORDERED: PROMETHAZINE 12.5 MG SUPP.RECT. RC PRN (22:30)
[2018-05-03] MEDS ORDERED: PROCHLORPERAZINE 5 MG TABLET. PO PRN (22:45)
[2018-05-03] MEDS: ZOLPIDEM 5 MG TABLET. PO SCH (23:01)
[2018-05-03] MEDS: oxyCODONE IR 5 MG TABLET PO PRN (23:01)
[2018-05-04] MEDS: fentaNYL PF VIAL 100 MCG/2 ML VIAL IV PRN ×7 (01:36→19:53)
[2018-05-04 03:40] VITALS: BP 154/86
[2018-05-04 07:30] VITALS: BP 153/89
[2018-05-04] MEDS ORDERED: CLINDAMYCIN 600MG PREMIX 50 ML IV SCH (07:45)
--- NOTE | 2018-05-04 07:52 | PDOC ---
PROGRESS NOTES Subjective Subjective Patient without complaint, chronic pain controlled. Objective Objective Vital Signs Date Time Temp Pulse Resp B/P (MAP) Pulse Ox O2 Delivery O2 Flow Rate FiO2 05/04/18 06:27 96 Room Air 05/04/18 03:40 98.3 70 18 154/86 (108) 98.3 Intake and Output 05/04/18 07:01 Intake Total 100 ml Balance 100 ml Intake Oral 100 ml Physical Exam Abdomen: Normal bowel sounds, Soft, No tenderness Heart: Regular rate Extremities: No edema General: Alert, Oriented X3, No acute distress HEENT: Other (3 small mildly erythematous papules under R eye, scant erythema surrounding) Lungs: Clear to auscultation Assessment Assessment Problems Medical Problems: (1) Facial rash Status: Acute (2) Immunocompromised state Status: Acute (3) Pancytopenia Status: Acute Plan Plan of Care 1. Facial cellulitis - patient was admitted for IV abx as she does not tolerate po abx. Infection much improved in appearance overnight after receiving Clindamycin and Acyclovir x1. Will continue these. Afebrile. No skin cultures done. Consult with ID pending. 2. metastatic cervical cancer with pancytopenia - patient completed present cycle of chemotx last month. Dr Raines consulted. 3. chronic abdominal pain - stable, continue Oxycodone as needed. 4. chronic hypomagnesemia - lab ordered, patient prefers to take her form of Mg from home, orders given for this. Comment Review of Relevant I have reviewed the following items heather (where applicable) has been applied. Labs Laboratory Tests Test 05/03/18 19:15 05/03/18 19:45 05/03/18 20:20 Urine Collection Type Unknown Urine Color Yellow Urine Clarity Clear Urine pH 5.5 Urine Specific [place] >=1.030 Urine Protein 100 mg/dL (NEG-TRACE) Urine Glucose (UA) Negative mg/dL (NEG) Urine Ketones (Stick) Negative mg/dL (NEG) Urine Blood Negative (NEG) Urine Nitrite Negative (NEG) Urine Bilirubin Negative (NEG) Urine Urobilinogen Dipstick 0.2 mg/dL (0.2 mg/dL) Urine Leukocyte Esterase Negative (NEG) Urine RBC Occ /HPF (0-2) Urine WBC 20-40 /HPF (0-4) Urine Squamous Epithelial Cells Mod /LPF Urine Bacteria Few /HPF (0-FEW) Urine Hyaline Casts Few /HPF Urine Mucus Mod /LPF Sodium Level 140 mmol/L (136-145) Potassium Level 3.7 mmol/L (3.5-5.1) Chloride Level 106 mmol/L (98-107) Carbon Dioxide Level 26 mmol/L (21-32) Anion Gap 8 (6-14) Blood Urea Nitrogen 23 mg/dL (7-20) Creatinine 1.1 mg/dL (0.6-1.0) Estimated GFR (Cockcroft-Gault) 55.6 BUN/Creatinine Ratio 21 (6-20) Glucose Level 103 mg/dL (70-99) Lactic Acid Level 1.1 mmol/L (0.4-2.0) Calcium Level 9.5 mg/dL (8.5-10.1) Total Bilirubin 0.2 mg/dL (0.2-1.0) Aspartate Amino Transf (AST/SGOT) 15 U/L (15-37) Alanine Aminotransferase (ALT/SGPT) 16 U/L (14-59) Alkaline Phosphatase 82 U/L (46-116) Total Protein 7.1 g/dL (6.4-8.2) Albumin 3.2 g/dL (3.4-5.0) Albumin/Globulin Ratio 0.8 (1.0-1.7) White Blood Count 3.3 x10^3/uL (4.0-11.0) Red Blood Count 2.21 x10^6/uL (3.50-5.40) Hemoglobin 7.3 g/dL (12.0-15.5) Hematocrit 22.1 % (36.0-47.0) Mean Corpuscular Volume 100 fL (79-100) Mean Corpuscular Hemoglobin 33 pg (25-35) Mean Corpuscular Hemoglobin Concent 33 g/dL (31-37) Red Cell Distribution Width 17.5 % (11.5-14.5) Platelet Count 71 x10^3/uL (140-400) Neutrophils (%) (Auto) 62 % (31-73) Lymphocytes (%) (Auto) 25 % (24-48) Monocytes (%) (Auto) 11 % (0-9) Eosinophils (%) (Auto) 1 % (0-3) Basophils (%) (Auto) 0 % (0-3) Neutrophils # (Auto) 2.0 x10^3uL (1.8-7.7) Lymphocytes # (Auto) 0.8 x10^3/uL (1.0-4.8) Monocytes # (Auto) 0.3 x10^3/uL (0.0-1.1) Eosinophils # (Auto) 0.0 x10^3/uL (0.0-0.7) Basophils # (Auto) 0.0 x10^3/uL (0.0-0.2) Laboratory Tests Test 05/03/18 19:15 05/03/18 19:45 05/03/18 20:20 Urine Collection Type Unknown Urine Color Yellow Urine Clarity Clear Urine pH 5.5 Urine Specific [place] >=1.030 Urine Protein 100 mg/dL (NEG-TRACE) Urine Glucose (UA) Negative mg/dL (NEG) Urine Ketones (Stick) Negative mg/dL (NEG) Urine Blood Negative (NEG) Urine Nitrite Negative (NEG) Urine Bilirubin Negative (NEG) Urine Urobilinogen Dipstick 0.2 mg/dL (0.2 mg/dL) Urine Leukocyte Esterase Negative (NEG) Urine RBC Occ /HPF (0-2) Urine WBC 20-40 /HPF (0-4) Urine Squamous Epithelial Cells Mod /LPF Urine Bacteria Few /HPF (0-FEW) Urine Hyaline Casts Few /HPF Urine Mucus Mod /LPF Sodium Level 140 mmol/L (136-145) Potassium Level 3.7 mmol/L (3.5-5.1) Chloride Level 106 mmol/L (98-107) Carbon Dioxide Level 26 mmol/L (21-32) Anion Gap 8 (6-14) Blood Urea Nitrogen 23 mg/dL (7-20) Creatinine 1.1 mg/dL (0.6-1.0) Estimated GFR (Cockcroft-Gault) 55.6 BUN/Creatinine Ratio 21 (6-20) Glucose Level 103 mg/dL (70-99) Lactic Acid Level 1.1 mmol/L (0.4-2.0) Calcium Level 9.5 mg/dL (8.5-10.1) Total Bilirubin 0.2 mg/dL (0.2-1.0) Aspartate Amino Transf (AST/SGOT) 15 U/L (15-37) Alanine Aminotransferase (ALT/SGPT) 16 U/L (14-59) Alkaline Phosphatase 82 U/L (46-116) Total Protein 7.1 g/dL (6.4-8.2) Albumin 3.2 g/dL (3.4-5.0) Albumin/Globulin Ratio 0.8 (1.0-1.7) White Blood Count 3.3 x10^3/uL (4.0-11.0) Red Blood Count 2.21 x10^6/uL (3.50-5.40) Hemoglobin 7.3 g/dL (12.0-15.5) Hematocrit 22.1 % (36.0-47.0) Mean Corpuscular Volume 100 fL (79-100) Mean Corpuscular Hemoglobin 33 pg (25-35) Mean Corpuscular Hemoglobin Concent 33 g/dL (31-37) Red Cell Distribution Width 17.5 % (11.5-14.5) Platelet Count 71 x10^3/uL (140-400) Neutrophils (%) (Auto) 62 % (31-73) Lymphocytes (%) (Auto) 25 % (24-48) Monocytes (%) (Auto) 11 % (0-9) Eosinophils (%) (Auto) 1 % (0-3) Basophils (%) (Auto) 0 % (0-3) Neutrophils # (Auto) 2.0 x10^3uL (1.8-7.7) Lymphocytes # (Auto) 0.8 x10^3/uL (1.0-4.8) Monocytes # (Auto) 0.3 x10^3/uL (0.0-1.1) Eosinophils # (Auto) 0.0 x10^3/uL (0.0-0.7) Basophils # (Auto) 0.0 x10^3/uL (0.0-0.2) Medications Current Medications Fentanyl Citrate (Fentanyl 2ml Vial) 50 mcg 1X ONCE IV Last administered on 05/03/18at 19:57; Start 05/03/18 at 19:00; Stop 05/03/18 at 19:06; Status DC Sodium Chloride 1,000 ml @ 1,000 mls/hr 1X ONCE IV Last administered on at 19:56; Start 05/03/18 at 19:00; Stop 05/03/18 at 19:59; Status DC Clindamycin Phosphate 50 ml @ 100 mls/hr 1X ONCE IV Last administered on at 19:57; Start 05/03/18 at 19:00; Stop 05/03/18 at 19:29; Status DC Acyclovir Sodium 600 mg/Dextrose 112 ml @ 112 mls/hr 1X ONCE IV Last administered on 05/03/18at 21:27; Start 05/03/18 at 19:30; Stop 05/03/18 at 20:29; Status DC Fentanyl Citrate (Fentanyl 2ml Vial) 50 mcg PRN Q2HR PRN IV PAIN; Start at 21:00; Stop 05/03/18 at 22:33; Status DC Fentanyl Citrate (Fentanyl 2ml Vial) 75 mcg 1X ONCE IV Last administered on 05/03/18at 21:27; Start 05/03/18 at 21:15; Stop 05/03/18 at 21:16; Status DC Fentanyl Citrate (Fentanyl 2ml Vial) 50 mcg PRN Q2HR PRN IV SEVERE PAIN Last administered on 05/04/18at 06:27; Start 05/03/18 at 22:30 Cyclobenzaprine HCl (Flexeril) 10 mg PRN BID PRN PO back pain; Start 05/03/18 at 22:30 Promethazine HCl (Phenergan Supp) 12.5 mg PRN BID PRN RC NAUSEA 2ND CHOICE; Start 05/03/18 at 22:30 Zolpidem Tartrate (Ambien) 5 mg QHS PO Last administered on 05/03/18at 23:01; Start 05/03/18 at 23:00 Oxycodone HCl (Roxicodone) 5 mg PRN Q4HRS PRN PO MODERATE PAIN Last administered on 05/03/18at 23:01; Start 05/03/18 at 22:45 Prochlorperazine Maleate (Compazine) 10 mg PRN Q8HRS PRN PO NAUSEA/VOMITING 1ST CHOICE; Start 05/03/18 at 22:45 Magnesium Oxide (Magnesium Oxide) 400 mg TID PO ; Start 05/04/18 at 09:00 Active Scripts Active Reported Cyclobenzaprine Hcl 10 Mg Tablet 10 Mg PO PRN PRN [magnesium powder] 150mg Powd 150 Mg PO TID Phenergan (Promethazine HCl) 12.5 Mg Supp.rect 12.5 Mg RC PRN PRN Roxicodone (Oxycodone HCl) 5 Mg Tablet 5 Mg PO PRN Q4HRS PRN Ambien (Zolpidem Tartrate) 5 Mg Tablet 1 Tab PO QHS Compazine (Prochlorperazine Maleate) 10 Mg Tablet 10 Mg PO PRN Q8HRS PRN Vitals/I & O Vital Sign - Last 24 Hours 05/03/18 05/03/18 05/03/18 05/03/18 18:41 18:45 19:52 19:57 Temp 98.1 98.1 Pulse 81 75 67 Resp 18 22 B/P (MAP) 159/90 (113) 159/90 (113) 150/70 (96) Pulse Ox 100 98 O2 Delivery Room Air Room Air Room Air Room Air 05/03/18 05/03/18 05/03/18 05/03/18 20:22 21:22 21:27 22:00 Pulse 71 72 B/P (MAP) 156/82 (106) 141/87 (105) Pulse Ox 98 99 99 O2 Delivery Room Air Room Air Room Air Room Air 05/03/18 05/03/18 05/04/18 05/04/18 22:00 23:01 00:01 01:36 Temp 97.4 97.4 Pulse 69 Resp 18 18 16 16 B/P (MAP) 119/65 (83) Pulse Ox 99 99 99 99 O2 Delivery Room Air Room Air Room Air 05/04/18 05/04/18 05/04/18 02:06 03:40 06:27 Temp 98.3 98.3 Pulse 70 Resp 16 18 B/P (MAP) 154/86 (108) Pulse Ox 99 96 96 O2 Delivery Room Air Room Air Room Air Intake and Output 05/03/18 05/03/18 05/04/18 15:01 23:01 07:01 Intake Total 100 ml Balance 100 ml ALYSSA MARTELL MD May 04, 2018 07:52
--- NOTE | 2018-05-04 08:46 | HP ---
ADMIT DATE: 05/03/2018 CHIEF COMPLAINT: Cellulitis. HISTORY OF PRESENT ILLNESS: The patient is a 38-year-old female with a history of metastatic cervical cancer, who is currently on chemotherapy. She started to experience some redness and swelling under her right eye last 04/30/2018. She saw her oncologist, Dr. Raines, who referred her to an convex grinder. Apparently, the convex grinder did not feel that the infection involved her eye. Dr. Raines felt that the patient should be admitted for IV antibiotics for treatment of this cellulitis as she does not tolerate oral antibiotics very well. The patient came to the Emergency Department yesterday. Treatment was started and she was admitted for further care. PAST MEDICAL HISTORY: Metastatic cervical cancer, chronic abdominal pain, chronic hypomagnesemia, history of Clostridium difficile. PAST SURGICAL HISTORY: Hysterectomy, placement of chemotherapy port. ALLERGIES: THE PATIENT IS ALLERGIC TO ZOFRAN AND SHELLFISH. HOME MEDICATIONS: Cyclobenzaprine 10 mg p.r.n., oxycodone 5 mg q. 4 hours p.r.n., Compazine 10 mg p.o. p.r.n., Phenergan suppository 12.5 mg p.r.n., zolpidem 5 mg at bedtime p.r.n., magnesium powder t.i.d. FAMILY HISTORY: Noncontributory. 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 She does not smoke cigarettes or drink alcohol to excess. REVIEW OF SYSTEMS: The patient has not had fever or chills. She has not had cough or shortness of breath. She has not had chest pain or palpitations. She has chronic abdominal pain, which is fairly well controlled by the oxycodone. She has not had diarrhea until yesterday, which she feels was as a result of drinking the contrast for the recent outpatient CT of the chest, abdomen and pelvis that she had done. She finished her most recent course of chemotherapy last month. PHYSICAL EXAMINATION: GENERAL: The patient is alert and oriented x 3, resting comfortably in bed, in no acute distress. HEENT: PERRL, EOMI, sclerae clear. Oropharynx: Mucous membranes moist. NECK: Supple, without lymphadenopathy. CHEST: Clear to auscultation. CARDIOVASCULAR: Regular rhythm without murmur. ABDOMEN: Soft, nontender, normoactive bowel sounds are present. EXTREMITIES: Without edema. SKIN: There are three small mildly erythematous papules under the right eye with scant surrounding erythema. There are no vesicles, pustules, or induration present. ASSESSMENT AND PLAN: 1. Facial cellulitis. The patient was admitted for IV antibiotics as she does not tolerate p.o. antibiotics well. She received one dose each of acyclovir and clindamycin last evening. The infection appears much improved in appearance overnight. We will continue acyclovir and clindamycin for now. A consult with ID is pending. There is no skin culture done at this time and there is no fluid available for culture in the skin lesions. 2. Metastatic cervical cancer with pancytopenia. The patient completed her present cycle of chemotherapy last month. A consult with Oncology is pending. 3. Chronic abdominal pain. This is stable. Continue oxycodone as needed. 4. Chronic hypomagnesemia. Labs ordered to check this. The patient prefers to take her own form of magnesium from home and orders have been given for this. ALYSSA MARTELL MD DR: HARJIT/kristopher JOB#: [id number] / [id number] BENIGNO
[2018-05-04] MEDS: oxyCODONE IR 5 MG TABLET PO PRN ×2 (08:47→14:37)
[2018-05-04] MEDS ORDERED: ACYCLOVIR SODIUM IV SCH (09:00)
[2018-05-04] MEDS ORDERED: MAGNESIUM OXIDE 400 MG TABLET PO SCH (09:00)
[2018-05-04] MEDS ORDERED: DEXTROSE 5% IV SCH (09:00)
[2018-05-04] MEDS: NON FORMULARY ITEM PO SCH ×3 (09:42→19:53)
--- NOTE | 2018-05-04 11:17 | PDOC ---
Infectious Disease Note Vital Sign Vital Signs Vital Signs Date Time Temp Pulse Resp B/P (MAP) Pulse Ox O2 Delivery O2 Flow Rate FiO2 05/04/18 11:09 96 Room Air 05/04/18 07:30 98.0 70 20 153/89 (110) 98.0 Labs Lab Laboratory Tests Test 05/03/18 19:15 05/03/18 19:45 05/03/18 20:20 05/04/18 08:07 Urine Collection Type Unknown Urine Color Yellow Urine Clarity Clear Urine pH 5.5 Urine Specific [place] >=1.030 Urine Protein 100 mg/dL (NEG-TRACE) Urine Glucose (UA) Negative mg/dL (NEG) Urine Ketones (Stick) Negative mg/dL (NEG) Urine Blood Negative (NEG) Urine Nitrite Negative (NEG) Urine Bilirubin Negative (NEG) Urine Urobilinogen Dipstick 0.2 mg/dL (0.2 mg/dL) Urine Leukocyte Esterase Negative (NEG) Urine RBC Occ /HPF (0-2) Urine WBC 20-40 /HPF (0-4) Urine Squamous Epithelial Cells Mod /LPF Urine Bacteria Few /HPF (0-FEW) Urine Hyaline Casts Few /HPF Urine Mucus Mod /LPF Sodium Level 140 mmol/L (136-145) Potassium Level 3.7 mmol/L (3.5-5.1) Chloride Level 106 mmol/L (98-107) Carbon Dioxide Level 26 mmol/L (21-32) Anion Gap 8 (6-14) Blood Urea Nitrogen 23 mg/dL (7-20) Creatinine 1.1 mg/dL (0.6-1.0) Estimated GFR (Cockcroft-Gault) 55.6 BUN/Creatinine Ratio 21 (6-20) Glucose Level 103 mg/dL (70-99) Lactic Acid Level 1.1 mmol/L (0.4-2.0) Calcium Level 9.5 mg/dL (8.5-10.1) Total Bilirubin 0.2 mg/dL (0.2-1.0) Aspartate Amino Transf (AST/SGOT) 15 U/L (15-37) Alanine Aminotransferase (ALT/SGPT) 16 U/L (14-59) Alkaline Phosphatase 82 U/L (46-116) Total Protein 7.1 g/dL (6.4-8.2) Albumin 3.2 g/dL (3.4-5.0) Albumin/Globulin Ratio 0.8 (1.0-1.7) White Blood Count 3.3 x10^3/uL (4.0-11.0) Red Blood Count 2.21 x10^6/uL (3.50-5.40) Hemoglobin 7.3 g/dL (12.0-15.5) Hematocrit 22.1 % (36.0-47.0) Mean Corpuscular Volume 100 fL (79-100) Mean Corpuscular Hemoglobin 33 pg (25-35) Mean Corpuscular Hemoglobin Concent 33 g/dL (31-37) Red Cell Distribution Width 17.5 % (11.5-14.5) Platelet Count 71 x10^3/uL (140-400) Neutrophils (%) (Auto) 62 % (31-73) Lymphocytes (%) (Auto) 25 % (24-48) Monocytes (%) (Auto) 11 % (0-9) Eosinophils (%) (Auto) 1 % (0-3) Basophils (%) (Auto) 0 % (0-3) Neutrophils # (Auto) 2.0 x10^3uL (1.8-7.7) Lymphocytes # (Auto) 0.8 x10^3/uL (1.0-4.8) Monocytes # (Auto) 0.3 x10^3/uL (0.0-1.1) Eosinophils # (Auto) 0.0 x10^3/uL (0.0-0.7) Basophils # (Auto) 0.0 x10^3/uL (0.0-0.2) Magnesium Level 2.0 mg/dL (1.8-2.4) Objective Assessment SSI rt lower eye/face Leukopenia Metastatic cervical ca h/o C diff Plan Plan of Care change clindamycin ( sec to recent h/o c diff ) to zyvox no need for acyclovir supportive care d/c home soon on po zyvox LEIGHA WATERS MD May 04, 2018 11:17
[2018-05-04 11:18] VITALS: BP 126/80
--- NOTE | 2018-05-04 13:31 | NUR ---
SW following pt for anticipated dc needs. Chart reviewed. Pt lives at home with family. ID following pt and notes indicate pt will dc home on po zyvox. SW will be available assist with dc needs.
[2018-05-04] MEDS: LINEZOLID 600 MG TABLET PO SCH ×2 (14:25→20:48)
[2018-05-04 15:59] VITALS: BP 153/94
[2018-05-04] MEDS ORDERED: PROCHLORPERAZINE 10 MG/2 ML VIAL. IM PRN (17:00)
[2018-05-04] MEDS ORDERED: PROCHLORPERAZINE 10 MG/2 ML VIAL. IV PRN (17:03)
[2018-05-04 19:54] VITALS: BP 154/95
[2018-05-04] MEDS: ZOLPIDEM 5 MG TABLET. PO SCH (20:48)
[2018-05-04] MEDS: VANCOMYCIN 125 MG/2.5 ML ORAL SOLUTION. PO SCH (21:08)
--- NOTE | 2018-05-04 22:00 | NUR ---
Oral vanco dose changed by pharmacy to correct treatment dose
--- NOTE | 2018-05-04 22:13 | CONS ---
DATE OF CONSULTATION: 05/04/2018 REQUESTING PHYSICIAN: Jeannette Bowman MD REASON FOR CONSULTATION: Facial cellulitis. HISTORY OF PRESENT ILLNESS: This is a 38-year-old female with metastatic cervical cancer, who is on chemotherapy, who all of sudden woke up with redness like a pimple under the right eyelid on Thursday. It gotten worse. The patient was seen by Dr. Raines' office and was sent in for IV antibiotics. The patient denied any fever, denied any nausea, vomiting or diarrhea. Denied any trauma, denied any bug bite. No other complaints or problems. PAST MEDICAL HISTORY: Positive for metastatic cervical cancer. The patient also has recent history of C. diff. The patient also gets fever post-chemotherapy, which is for about 5 days and it gets better. PAST SURGICAL HISTORY: The patient has had hysterectomy and port placement done. SOCIAL HISTORY: Negative for smoking, alcohol or illicit drug use. ALLERGIES: Listed as allergic to ZOFRAN. CURRENT MEDICATIONS: Reviewed. The patient was started on clindamycin and acyclovir. REVIEW OF SYSTEMS: As per HPI, all other systems reviewed and are negative. PHYSICAL EXAMINATION: GENERAL: Alert, oriented female, not in distress. VITAL SIGNS: Stable, afebrile. HEENT: Both pupils are round and reacting. No conjunctival lesion. There is skin soft tissue infection below the right eyelid with small surrounding erythema less than 2 cm. NAD. NECK: Supple, no JVP, no lymphadenopathy. LUNGS: Clear. HEART: S1, S2 regular. ABDOMEN: Benign. EXTREMITIES: No edema, cyanosis. SKIN: Unremarkable. Other skin examination unremarkable. NEUROLOGICAL: The patient is neurologically alert, awake and appropriate. No focal neurologic deficit. LABORATORY DATA: White count 3.3, platelets are 71,000. BUN and creatinine are normal 23 and 1.1. Her stool for C. diff was on 04/05, which is very recent. IMPRESSION: 1. Skin and soft tissue infection on the right side of the face below the right eye. 2. Metastatic cervical cancer. 3. Recent history of Clostridium difficile. 4. Dehydration. RECOMMENDATIONS: We would not use clindamycin even though the patient says the lesion of the area looks much better compared to yesterday. Clindamycin would be a good drug in general, but with very high risk for C. diff recurrence. I would use the least offending agent, either Zyvox or Bactrim and also discontinue acyclovir. Supportive care, hydration. C. diff recurrence education done. patient can be discharged pretty soon. Thank you very much, Dr. Bowman, for giving me opportunity to participate in this patient's care. LEIGHA WATERS MD DR: DAYDAY/kristopher JOB#: [id number] / [id number] BENIGNO
--- NOTE | 2018-05-04 22:17 | CONS ---
DATE OF CONSULTATION: 05/04/2018 TYPE OF REPORT: Medical oncology consultation. CONSULTATION REQUESTING PHYSICIAN: Jeannette Bowman M.D. REASON FOR CONSULTATION: Cancer of the cervix, on treatment, now admitted with right facial cellulitis. 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 Due to positive scarlett disease, she was started on chemoradiotherapy with weekly cisplatin for 8 weeks and that was completed on 08/24/2017 along with radiation therapy that was completed on 08/28/2017. She has significant cisplatin toxicity. However, in October of 2017, CT scan of the chest noted, increased adenopathy in the mediastinum and the left supraclavicular area and biopsy was consistent with metastatic squamous cell carcinoma. PD-L1 was positive. She was started on carboplatin, Taxol and Avastin. She continues to follow up with Dr. Raines for management. She received 6 cycles of carboplatin and Taxol from 12/18/2017 through 04/16/2018. Avastin was added with cycle #2 and she is due to start maintenance Avastin on 05/07/2018, which will be deferred because of her current admission. She has noticed right-sided posterior lesions are on the right eye. Ophthalmology was consulted who was able to express purulent drainage from all the lesions and thought it was not typical of shingles but cannot rule it out. She was then sent to the hospital and she was unable to tolerate oral medications and she was started on IV antibiotics and acyclovir and Infectious Diseases was consulted. PAST MEDICAL HISTORY: Gastritis, hypomagnesemia and hysterectomy. SOCIAL HISTORY: She is a former smoker. FAMILY HISTORY: Positive for diabetes and hypertension. REVIEW OF SYSTEMS: A 12-point review of system was performed. Pertinent positives are mentioned in the history of present illness. Rest of the system review is negative. PHYSICAL EXAMINATION: GENERAL APPEARANCE: The patient is a 38-year-old female who is in no acute cardiorespiratory distress. VITAL SIGNS: Blood pressure 126/80 and temperature 98.4. HEENT: Atraumatic and normocephalic. Eyes: No icterus. NECK: Supple. CHEST: Bilaterally symmetrical. HEART: S1 and S2 normal. ABDOMEN: Soft and nontender. CENTRAL NERVOUS SYSTEM: No focal deficits. LYMPHATICS: No lymphadenopathy. SKIN: She has evidence of a rash under the right eye, vesiculopustular, but she mentions that it is significantly better. MUSCULOSKELETAL: No joint effusions. PSYCHOLOGIC: Mood and affect are appropriate. LYMPHATICS: No lymphadenopathy. LABORATORY DATA: WBC 3.3, hemoglobin 7.3, platelet count 71 and absolute neutrophil count is 2.0. Creatinine is 1.1. IMPRESSION AND PLAN: 1. Recurrent metastatic cervical cancer. She underwent chemotherapy with carboplatin and Taxol from 12/18/2017 through 04/16/2018. She was due to begin maintenance Avastin on 05/07/2018, which I will defer by 1 week because of current admission and infection. 2. Cellulitis involving the face. Ophthalmology consultation appreciated as an outpatient. Purulent drainage was noted from one of the lesions and the presentation was not believed to be typical of shingles but cannot be ruled out. Hence, she has been started on antibiotics and acyclovir. She reports that she already feels significantly better. I agree to consult ID for further advice. 3. 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 Hemoglobin 7.3. Continue to monitor. 4. Leukopenia due to chemotherapy, monitor. 5. Thrombocytopenia due to chemotherapy. No signs of bleeding. Continue to monitor. I discussed with registered nurse and nurse practitioner. DEBORAH ROMERO MD DR: RYAN/kristopher JOB#: [id number] / [id number]
[2018-05-04 23:08] VITALS: BP 118/72
[2018-05-05] MEDS ORDERED: metroNIDAZOLE 500 MG TABLET PO SCH
[2018-05-05] MEDS: fentaNYL PF VIAL 100 MCG/2 ML VIAL IV PRN ×5 (00:01→10:38)
[2018-05-05] MEDS: oxyCODONE IR 5 MG TABLET PO PRN ×3 (00:02→12:10)
[2018-05-05 03:23] VITALS: BP 151/85
[2018-05-05 05:46] LABS: HEMATOCRIT 24.2 % (36.0-47.0); HEMOGLOBIN 8.1 g/dL (12.0-15.5); RED BLOOD COUNT 2.44 x10^6/uL (3.50-5.40)
[2018-05-05 06:02] LABS: CALCIUM 9.4 mg/dL (8.5-10.1); CREATININE 1.1 mg/dL (0.6-1.0); GFR 55.6; POTASSIUM 3.8 mmol/L (3.5-5.1)
[2018-05-05 07:40] VITALS: BP 139/73
[2018-05-05] MEDS: VANCOMYCIN 125 MG/2.5 ML ORAL SOLUTION. PO SCH ×2 (08:00→12:17)
[2018-05-05] MEDS: NON FORMULARY ITEM PO SCH (08:00)
[2018-05-05] MEDS: LINEZOLID 600 MG TABLET PO SCH (08:01)
--- NOTE | 2018-05-05 08:29 | PDOC ---
PROGRESS NOTES Subjective Subjective HPI - f/u of Recurrent metastatic cervical cancer ROS - no fever Objective Objective Vital Signs Date Time Temp Pulse Resp B/P (MAP) Pulse Ox O2 Delivery O2 Flow Rate FiO2 05/05/18 07:40 97.7 71 17 139/73 (95) 96 Room Air 97.7 Intake and Output 05/05/18 07:01 Intake Total 250 ml Balance 250 ml Intake Oral 250 ml # Voids 4 # Bowel Movements 1 Physical Exam General: Alert, Oriented X3, No acute distress Neck: No JVD Neuro: Normal speech Psych/Mental Status: Mental status NL Assessment Assessment Problems Medical Problems: (1) Facial rash Status: Acute (2) Immunocompromised state Status: Acute (3) Pancytopenia Status: Acute IMPRESSION AND PLAN: 1. Recurrent metastatic cervical cancer. She underwent chemotherapy with carboplatin and Taxol from 12/18/2017 through 04/16/2018. She was due to begin maintenance Avastin on 05/07/2018, which I will defer by 1 week because of current admission and infection. 2. Cellulitis involving the face. Ophthalmology consultation appreciated as an outpatient. Purulent drainage was noted from one of the lesions and the presentation was not believed to be typical of shingles but cannot be ruled out. Hence, she has been started on antibiotics and acyclovir. She reports that she already feels significantly better. Appreciate ID consult who d/jefry acyclovir as this is not typical of shingles. 3. 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 Hemoglobin 8.1. Continue to monitor. 4. Leukopenia due to chemotherapy, monitor. 5. Thrombocytopenia due to chemotherapy. No signs of bleeding. Continue to monitor. Comment Review of Relevant I have reviewed the following items heather (where applicable) has been applied. Labs Laboratory Tests Test 05/03/18 19:15 05/03/18 19:45 05/03/18 20:20 05/04/18 08:07 Urine Collection Type Unknown Urine Color Yellow Urine Clarity Clear Urine pH 5.5 Urine Specific [place] >=1.030 Urine Protein 100 mg/dL (NEG-TRACE) Urine Glucose (UA) Negative mg/dL (NEG) Urine Ketones (Stick) Negative mg/dL (NEG) Urine Blood Negative (NEG) Urine Nitrite Negative (NEG) Urine Bilirubin Negative (NEG) Urine Urobilinogen Dipstick 0.2 mg/dL (0.2 mg/dL) Urine Leukocyte Esterase Negative (NEG) Urine RBC Occ /HPF (0-2) Urine WBC 20-40 /HPF (0-4) Urine Squamous Epithelial Cells Mod /LPF Urine Bacteria Few /HPF (0-FEW) Urine Hyaline Casts Few /HPF Urine Mucus Mod /LPF Sodium Level 140 mmol/L (136-145) Potassium Level 3.7 mmol/L (3.5-5.1) Chloride Level 106 mmol/L (98-107) Carbon Dioxide Level 26 mmol/L (21-32) Anion Gap 8 (6-14) Blood Urea Nitrogen 23 mg/dL (7-20) Creatinine 1.1 mg/dL (0.6-1.0) Estimated GFR (Cockcroft-Gault) 55.6 BUN/Creatinine Ratio 21 (6-20) Glucose Level 103 mg/dL (70-99) Lactic Acid Level 1.1 mmol/L (0.4-2.0) Calcium Level 9.5 mg/dL (8.5-10.1) Total Bilirubin 0.2 mg/dL (0.2-1.0) Aspartate Amino Transf (AST/SGOT) 15 U/L (15-37) Alanine Aminotransferase (ALT/SGPT) 16 U/L (14-59) Alkaline Phosphatase 82 U/L (46-116) Total Protein 7.1 g/dL (6.4-8.2) Albumin 3.2 g/dL (3.4-5.0) Albumin/Globulin Ratio 0.8 (1.0-1.7) White Blood Count 3.3 x10^3/uL (4.0-11.0) Red Blood Count 2.21 x10^6/uL (3.50-5.40) Hemoglobin 7.3 g/dL (12.0-15.5) Hematocrit 22.1 % (36.0-47.0) Mean Corpuscular Volume 100 fL (79-100) Mean Corpuscular Hemoglobin 33 pg (25-35) Mean Corpuscular Hemoglobin Concent 33 g/dL (31-37) Red Cell Distribution Width 17.5 % (11.5-14.5) Platelet Count 71 x10^3/uL (140-400) Neutrophils (%) (Auto) 62 % (31-73) Lymphocytes (%) (Auto) 25 % (24-48) Monocytes (%) (Auto) 11 % (0-9) Eosinophils (%) (Auto) 1 % (0-3) Basophils (%) (Auto) 0 % (0-3) Neutrophils # (Auto) 2.0 x10^3uL (1.8-7.7) Lymphocytes # (Auto) 0.8 x10^3/uL (1.0-4.8) Monocytes # (Auto) 0.3 x10^3/uL (0.0-1.1) Eosinophils # (Auto) 0.0 x10^3/uL (0.0-0.7) Basophils # (Auto) 0.0 x10^3/uL (0.0-0.2) Magnesium Level 2.0 mg/dL (1.8-2.4) Test 05/04/18 14:30 05/05/18 05:20 Clostridium difficile Toxin B Gene Positive (Negative) White Blood Count 3.0 x10^3/uL (4.0-11.0) Red Blood Count 2.44 x10^6/uL (3.50-5.40) Hemoglobin 8.1 g/dL (12.0-15.5) Hematocrit 24.2 % (36.0-47.0) Mean Corpuscular Volume 99 fL (79-100) Mean Corpuscular Hemoglobin 33 pg (25-35) Mean Corpuscular Hemoglobin Concent 34 g/dL (31-37) Red Cell Distribution Width 17.0 % (11.5-14.5) Platelet Count 75 x10^3/uL (140-400) Sodium Level 142 mmol/L (136-145) Potassium Level 3.8 mmol/L (3.5-5.1) Chloride Level 107 mmol/L (98-107) Carbon Dioxide Level 25 mmol/L (21-32) Anion Gap 10 (6-14) Blood Urea Nitrogen 14 mg/dL (7-20) Creatinine 1.1 mg/dL (0.6-1.0) Estimated GFR (Cockcroft-Gault) 55.6 Glucose Level 99 mg/dL (70-99) Calcium Level 9.4 mg/dL (8.5-10.1) Magnesium Level 2.0 mg/dL (1.8-2.4) Laboratory Tests Test 05/04/18 14:30 26/19 05:20 Clostridium difficile Toxin B Gene Positive (Negative) White Blood Count 3.0 x10^3/uL (4.0-11.0) Red Blood Count 2.44 x10^6/uL (3.50-5.40) Hemoglobin 8.1 g/dL (12.0-15.5) Hematocrit 24.2 % (36.0-47.0) Mean Corpuscular Volume 99 fL (79-100) Mean Corpuscular Hemoglobin 33 pg (25-35) Mean Corpuscular Hemoglobin Concent 34 g/dL (31-37) Red Cell Distribution Width 17.0 % (11.5-14.5) Platelet Count 75 x10^3/uL (140-400) Sodium Level 142 mmol/L (136-145) Potassium Level 3.8 mmol/L (3.5-5.1) Chloride Level 107 mmol/L (98-107) Carbon Dioxide Level 25 mmol/L (21-32) Anion Gap 10 (6-14) Blood Urea Nitrogen 14 mg/dL (7-20) Creatinine 1.1 mg/dL (0.6-1.0) Estimated GFR (Cockcroft-Gault) 55.6 Glucose Level 99 mg/dL (70-99) Calcium Level 9.4 mg/dL (8.5-10.1) Magnesium Level 2.0 mg/dL (1.8-2.4) Microbiology 05/03/18 Blood Culture - Preliminary, Resulted NO GROWTH AFTER 1 DAY Medications Current Medications Fentanyl Citrate (Fentanyl 2ml Vial) 50 mcg 1X ONCE IV Last administered on 19:57; Start 05/03/18 at 19:00; Stop 05/03/18 at 19:06; Status DC Sodium Chloride 1,000 ml @ 1,000 mls/hr 1X ONCE IV Last administered on 19:56; Start 05/03/18 at 19:00; Stop 05/03/18 at 19:59; Status DC Clindamycin Phosphate 50 ml @ 100 mls/hr 1X ONCE IV Last administered on at 19:57; Start 05/03/18 at 19:00; Stop 05/03/18 at 19:29; Status DC Acyclovir Sodium 600 mg/Dextrose 112 ml @ 112 mls/hr 1X ONCE IV Last administered on 05/03/18 21:27; Start 05/03/18 at 19:30; Stop 05/03/18 at 20:29; Status DC Fentanyl Citrate (Fentanyl 2ml Vial) 50 mcg PRN Q2HR PRN IV PAIN; Start at 21:00; Stop 05/03/18 at 22:33; Status DC Fentanyl Citrate (Fentanyl 2ml Vial) 75 mcg 1X ONCE IV Last administered on 05/03/18at 21:27; Start 05/03/18 at 21:15; Stop 05/03/18 at 21:16; Status DC Fentanyl Citrate (Fentanyl 2ml Vial) 50 mcg PRN Q2HR PRN IV SEVERE PAIN Last administered on 05/05/18at 08:01; Start 05/03/18 at 22:30 Cyclobenzaprine HCl (Flexeril) 10 mg PRN BID PRN PO back pain; Start 05/03/18 at 22:30 Promethazine HCl (Phenergan Supp) 12.5 mg PRN BID PRN RC NAUSEA 2ND CHOICE; Start 05/03/18 at 22:30 Zolpidem Tartrate (Ambien) 5 mg QHS PO Last administered on 05/04/18at 20:48; Start 05/03/18 at 23:00 Oxycodone HCl (Roxicodone) 5 mg PRN Q4HRS PRN PO MODERATE PAIN Last administered on 05/05/18at 08:00; Start 05/03/18 at 22:45 Prochlorperazine Maleate (Compazine) 10 mg PRN Q8HRS PRN PO NAUSEA/VOMITING 1ST CHOICE; Start 05/03/18 at 22:45 Magnesium Oxide (Magnesium Oxide) 400 mg TID PO ; Start 05/04/18 at 09:00; Stop 05/04/18 at 09:00; Status DC Acyclovir Sodium 300 mg/Dextrose 106 ml @ 106 mls/hr Q8HRS IV Last administered on 05/04/18at 09:39; Start 05/04/18 at 09:00; Stop 05/04/18 at 11:18; Status DC Clindamycin Phosphate 50 ml @ 100 mls/hr Q8HRS IV Last administered on at 08:48; Start 05/04/18 at 07:45; Stop 05/04/18 at 11:18; Status DC Non-Formulary Medication 1 ea TID PO Last administered on 05/05/18at 08:00; Start 05/04/18 at 09:00 Linezolid (Zyvox) 600 mg BID PO Last administered on 05/05/18at 08:01; Start 05/04 at 12:00 Prochlorperazine Edisylate (Compazine) 10 mg PRN Q4HRS PRN IM NAUSEA/VOMITING; Start 05/04/18 at 17:00; Stop 05/04/18 at 17:03; Status DC Prochlorperazine Edisylate (Compazine) 10 mg PRN Q4HRS PRN IV NAUSEA/VOMITING Last administered on 05/04/18at 17:09; Start 05/04/18 at 17:03 Metronidazole (Flagyl) 500 mg Q6HRS PO ; Start 05/05/18 at 00:00; Stop 05/05/18 at 00:00; Status DC Vancomycin HCl (Vancomycin Oral Solution) 125 mg [id number] PO Last administered on 05/05/18at 08:00; Start 05/04/18 at 21:00 Active Scripts Active Reported Cyclobenzaprine Hcl 10 Mg Tablet 10 Mg PO PRN PRN [magnesium powder] 150mg Powd 150 Mg PO TID Phenergan (Promethazine HCl) 12.5 Mg Supp.rect 12.5 Mg RC PRN PRN Roxicodone (Oxycodone HCl) 5 Mg Tablet 5 Mg PO PRN Q4HRS PRN Ambien (Zolpidem Tartrate) 5 Mg Tablet 1 Tab PO QHS Compazine (Prochlorperazine Maleate) 10 Mg Tablet 10 Mg PO PRN Q8HRS PRN Vitals/I & O Vital Sign - Last 24 Hours 05/04/18 05/04/18 05/04/18 05/04/18 08:47 08:47 11:09 11:18 Temp 98.4 98.4 Pulse 73 Resp 14 B/P (MAP) 126/80 (95) Pulse Ox 96 96 96 97 O2 Delivery Room Air Room Air Room Air Room Air 05/04/18 05/04/18 05/04/18 05/04/18 14:33 14:37 15:59 17:10 Temp 98.0 98.0 Pulse 69 Resp 18 16 B/P (MAP) 153/94 (113) Pulse Ox 97 97 99 99 O2 Delivery Room Air Room Air Room Air Room Air 05/04/18 05/04/18 05/04/18 05/04/18 19:53 19:54 20:10 23:08 Temp 97.6 98.0 97.6 98.0 Pulse 73 74 Resp 16 16 16 B/P (MAP) 154/95 (114) 118/72 (87) Pulse Ox 99 99 98 O2 Delivery Room Air Room Air Room Air Room Air 05/05/18 05/05/18 05/05/18 05/05/18 00:01 00:02 01:02 02:45 Resp 16 16 16 16 Pulse Ox 98 98 98 98 O2 Delivery Room Air Room Air Room Air Room Air 05/05/18 05/05/18 05/05/18 05/05/18 03:23 05:15 05:45 07:40 Temp 97.7 97.7 97.7 97.7 Pulse 72 71 Resp 16 16 16 17 B/P (MAP) 151/85 (107) 139/73 (95) Pulse Ox 98 98 98 96 O2 Delivery Room Air Room Air Room Air Room Air Intake and Output 05/04/18 05/04/18 05/05/18 15:01 23:01 07:01 Intake Total 150 ml 100 ml Balance 150 ml 100 ml DEBORAH ROMERO MD May 05, 2018 08:29
--- NOTE | 2018-05-05 08:55 | PDOC ---
PROGRESS NOTES Subjective Subjective Patient reports moderate diarrhea but no nausea, tolerating present po abx. Objective Objective Vital Signs Date Time Temp Pulse Resp B/P (MAP) Pulse Ox O2 Delivery O2 Flow Rate FiO2 05/05/18 07:40 97.7 71 17 139/73 (95) 96 Room Air 97.7 Intake and Output 05/05/18 07:01 Intake Total 250 ml Balance 250 ml Intake Oral 250 ml # Voids 4 # Bowel Movements 1 Physical Exam Abdomen: Normal bowel sounds, Soft, Other (mild diffuse TTP without guarding or rebound) Heart: Regular rate Extremities: No edema General: Alert, Oriented X3, No acute distress Lungs: Clear to auscultation Skin: Other (one small scabbed mildly erythematous papule under right eye) Assessment Assessment Problems Medical Problems: (1) Facial rash Status: Acute (2) Immunocompromised state Status: Acute (3) Pancytopenia Status: Acute Plan Plan of Care 1. Facial cellulitis - much improved, home today on po Zyvox per ID, patient tolerating well. 2. recurrent C difficile colitis - started on po Vancomycin last night (had intolerance to po Flagyl in the past). Continue po Vancomycin, duration of treatment will be per ID recommendation. Also advised to start probiotics, she will discuss this with Dr Raines. 3. metastatic cervical cancer - continue tx [facility]. 4. hypomagnesemia - good with her home po replacement. 5. chronic abdominal pain - stable, home on her usual Percocet. Comment Review of Relevant I have reviewed the following items heather (where applicable) has been applied. Labs Laboratory Tests Test 05/03/18 19:15 05/03/18 19:45 05/03/18 20:20 05/04/18 08:07 Urine Collection Type Unknown Urine Color Yellow Urine Clarity Clear Urine pH 5.5 Urine Specific [place] >=1.030 Urine Protein 100 mg/dL (NEG-TRACE) Urine Glucose (UA) Negative mg/dL (NEG) Urine Ketones (Stick) Negative mg/dL (NEG) Urine Blood Negative (NEG) Urine Nitrite Negative (NEG) Urine Bilirubin Negative (NEG) Urine Urobilinogen Dipstick 0.2 mg/dL (0.2 mg/dL) Urine Leukocyte Esterase Negative (NEG) Urine RBC Occ /HPF (0-2) Urine WBC 20-40 /HPF (0-4) Urine Squamous Epithelial Cells Mod /LPF Urine Bacteria Few /HPF (0-FEW) Urine Hyaline Casts Few /HPF Urine Mucus Mod /LPF Sodium Level 140 mmol/L (136-145) Potassium Level 3.7 mmol/L (3.5-5.1) Chloride Level 106 mmol/L (98-107) Carbon Dioxide Level 26 mmol/L (21-32) Anion Gap 8 (6-14) Blood Urea Nitrogen 23 mg/dL (7-20) Creatinine 1.1 mg/dL (0.6-1.0) Estimated GFR (Cockcroft-Gault) 55.6 BUN/Creatinine Ratio 21 (6-20) Glucose Level 103 mg/dL (70-99) Lactic Acid Level 1.1 mmol/L (0.4-2.0) Calcium Level 9.5 mg/dL (8.5-10.1) Total Bilirubin 0.2 mg/dL (0.2-1.0) Aspartate Amino Transf (AST/SGOT) 15 U/L (15-37) Alanine Aminotransferase (ALT/SGPT) 16 U/L (14-59) Alkaline Phosphatase 82 U/L (46-116) Total Protein 7.1 g/dL (6.4-8.2) Albumin 3.2 g/dL (3.4-5.0) Albumin/Globulin Ratio 0.8 (1.0-1.7) White Blood Count 3.3 x10^3/uL (4.0-11.0) Red Blood Count 2.21 x10^6/uL (3.50-5.40) Hemoglobin 7.3 g/dL (12.0-15.5) Hematocrit 22.1 % (36.0-47.0) Mean Corpuscular Volume 100 fL (79-100) Mean Corpuscular Hemoglobin 33 pg (25-35) Mean Corpuscular Hemoglobin Concent 33 g/dL (31-37) Red Cell Distribution Width 17.5 % (11.5-14.5) Platelet Count 71 x10^3/uL (140-400) Neutrophils (%) (Auto) 62 % (31-73) Lymphocytes (%) (Auto) 25 % (24-48) Monocytes (%) (Auto) 11 % (0-9) Eosinophils (%) (Auto) 1 % (0-3) Basophils (%) (Auto) 0 % (0-3) Neutrophils # (Auto) 2.0 x10^3uL (1.8-7.7) Lymphocytes # (Auto) 0.8 x10^3/uL (1.0-4.8) Monocytes # (Auto) 0.3 x10^3/uL (0.0-1.1) Eosinophils # (Auto) 0.0 x10^3/uL (0.0-0.7) Basophils # (Auto) 0.0 x10^3/uL (0.0-0.2) Magnesium Level 2.0 mg/dL (1.8-2.4) Test 05/04/18 14:30 05/05/18 05:20 Clostridium difficile Toxin B Gene Positive (Negative) White Blood Count 3.0 x10^3/uL (4.0-11.0) Red Blood Count 2.44 x10^6/uL (3.50-5.40) Hemoglobin 8.1 g/dL (12.0-15.5) Hematocrit 24.2 % (36.0-47.0) Mean Corpuscular Volume 99 fL (79-100) Mean Corpuscular Hemoglobin 33 pg (25-35) Mean Corpuscular Hemoglobin Concent 34 g/dL (31-37) Red Cell Distribution Width 17.0 % (11.5-14.5) Platelet Count 75 x10^3/uL (140-400) Sodium Level 142 mmol/L (136-145) Potassium Level 3.8 mmol/L (3.5-5.1) Chloride Level 107 mmol/L (98-107) Carbon Dioxide Level 25 mmol/L (21-32) Anion Gap 10 (6-14) Blood Urea Nitrogen 14 mg/dL (7-20) Creatinine 1.1 mg/dL (0.6-1.0) Estimated GFR (Cockcroft-Gault) 55.6 Glucose Level 99 mg/dL (70-99) Calcium Level 9.4 mg/dL (8.5-10.1) Magnesium Level 2.0 mg/dL (1.8-2.4) Laboratory Tests Test 05/04/18 14:30 05/05/18 05:20 Clostridium difficile Toxin B Gene Positive (Negative) White Blood Count 3.0 x10^3/uL (4.0-11.0) Red Blood Count 2.44 x10^6/uL (3.50-5.40) Hemoglobin 8.1 g/dL (12.0-15.5) Hematocrit 24.2 % (36.0-47.0) Mean Corpuscular Volume 99 fL (79-100) Mean Corpuscular Hemoglobin 33 pg (25-35) Mean Corpuscular Hemoglobin Concent 34 g/dL (31-37) Red Cell Distribution Width 17.0 % (11.5-14.5) Platelet Count 75 x10^3/uL (140-400) Sodium Level 142 mmol/L (136-145) Potassium Level 3.8 mmol/L (3.5-5.1) Chloride Level 107 mmol/L (98-107) Carbon Dioxide Level 25 mmol/L (21-32) Anion Gap 10 (6-14) Blood Urea Nitrogen 14 mg/dL (7-20) Creatinine 1.1 mg/dL (0.6-1.0) Estimated GFR (Cockcroft-Gault) 55.6 Glucose Level 99 mg/dL (70-99) Calcium Level 9.4 mg/dL (8.5-10.1) Magnesium Level 2.0 mg/dL (1.8-2.4) Microbiology 05/03/18 Blood Culture - Preliminary, Resulted NO GROWTH AFTER 1 DAY Medications Current Medications Fentanyl Citrate (Fentanyl 2ml Vial) 50 mcg 1X ONCE IV Last administered on 19:57; Start 05/03/18 at 19:00; Stop 05/03/18 at 19:06; Status DC Sodium Chloride 1,000 ml @ 1,000 mls/hr 1X ONCE IV Last administered on at 19:56; Start 05/03/18 at 19:00; Stop 05/03/18 at 19:59; Status DC Clindamycin Phosphate 50 ml @ 100 mls/hr 1X ONCE IV Last administered on at 19:57; Start 05/03/18 at 19:00; Stop 05/03/18 at 19:29; Status DC Acyclovir Sodium 600 mg/Dextrose 112 ml @ 112 mls/hr 1X ONCE IV Last administered on 05/03/18at 21:27; Start 05/03/18 at 19:30; Stop 05/03/18 at 20:29; Status DC Fentanyl Citrate (Fentanyl 2ml Vial) 50 mcg PRN Q2HR PRN IV PAIN; Start at 21:00; Stop 05/03/18 at 22:33; Status DC Fentanyl Citrate (Fentanyl 2ml Vial) 75 mcg 1X ONCE IV Last administered on 05/03/18at 21:27; Start 05/03/18 at 21:15; Stop 05/03/18 at 21:16; Status DC Fentanyl Citrate (Fentanyl 2ml Vial) 50 mcg PRN Q2HR PRN IV SEVERE PAIN Last administered on 05/05/18at 08:01; Start 05/03/18 at 22:30 Cyclobenzaprine HCl (Flexeril) 10 mg PRN BID PRN PO back pain; Start 05/03/18 at 22:30 Promethazine HCl (Phenergan Supp) 12.5 mg PRN BID PRN RC NAUSEA 2ND CHOICE; Start 05/03/18 at 22:30 Zolpidem Tartrate (Ambien) 5 mg QHS PO Last administered on 05/04/18at 20:48; Start 05/03/18 at 23:00 Oxycodone HCl (Roxicodone) 5 mg PRN Q4HRS PRN PO MODERATE PAIN Last administered on 05/05/18 08:00; Start 05/03/18 at 22:45 Prochlorperazine Maleate (Compazine) 10 mg PRN Q8HRS PRN PO NAUSEA/VOMITING 1ST CHOICE; Start 05/03/18 at 22:45 Magnesium Oxide (Magnesium Oxide) 400 mg TID PO ; Start 05/04/18 at 09:00; Stop 05/04/18 at 09:00; Status DC Acyclovir Sodium 300 mg/Dextrose 106 ml @ 106 mls/hr Q8HRS IV Last administered on 05/04/18at 09:39; Start 05/04/18 at 09:00; Stop 05/04/18 at 11:18; Status DC Clindamycin Phosphate 50 ml @ 100 mls/hr Q8HRS IV Last administered on 08:48; Start 05/04/18 at 07:45; Stop 05/04/18 at 11:18; Status DC Non-Formulary Medication 1 ea TID PO Last administered on 2/6/19at 08:00; Start 05/04/18 at 09:00 Linezolid (Zyvox) 600 mg BID PO Last administered on 05/05/18at 08:01; Start 05/04 at 12:00 Prochlorperazine Edisylate (Compazine) 10 mg PRN Q4HRS PRN IM NAUSEA/VOMITING; Start 05/04/18 at 17:00; Stop 05/04/18 at 17:03; Status DC Prochlorperazine Edisylate (Compazine) 10 mg PRN Q4HRS PRN IV NAUSEA/VOMITING Last administered on 05/04/18at 17:09; Start 05/04/18 at 17:03 Metronidazole (Flagyl) 500 mg Q6HRS PO ; Start 05/05/18 at 00:00; Stop 05/05/18 at 00:00; Status DC Vancomycin HCl (Vancomycin Oral Solution) 125 mg [id number] PO Last administered on 05/05/18at 08:00; Start 05/04/18 at 21:00 Active Scripts Active Reported Cyclobenzaprine Hcl 10 Mg Tablet 10 Mg PO PRN PRN [magnesium powder] 150mg Powd 150 Mg PO TID Phenergan (Promethazine HCl) 12.5 Mg Supp.rect 12.5 Mg RC PRN PRN Roxicodone (Oxycodone HCl) 5 Mg Tablet 5 Mg PO PRN Q4HRS PRN Ambien (Zolpidem Tartrate) 5 Mg Tablet 1 Tab PO QHS Compazine (Prochlorperazine Maleate) 10 Mg Tablet 10 Mg PO PRN Q8HRS PRN Vitals/I & O Vital Sign - Last 24 Hours 05/04/18 05/04/18 05/04/18 05/04/18 11:09 11:18 14:33 14:37 Temp 98.4 98.4 Pulse 73 Resp 14 B/P (MAP) 126/80 (95) Pulse Ox 96 97 97 97 O2 Delivery Room Air Room Air Room Air Room Air 05/04/18 05/04/18 05/04/18 05/04/18 15:59 17:10 19:53 19:54 Temp 98.0 97.6 98.0 97.6 Pulse 69 73 Resp 18 16 16 16 B/P (MAP) 153/94 (113) 154/95 (114) Pulse Ox 99 99 99 99 O2 Delivery Room Air Room Air Room Air Room Air 05/04/18 05/04/18 05/05/18 05/05/18 20:10 23:08 00:01 00:02 Temp 98.0 98.0 Pulse 74 Resp 16 16 16 B/P (MAP) 118/72 (87) Pulse Ox 98 98 98 O2 Delivery Room Air Room Air Room Air Room Air 05/05/18 05/05/18 05/05/18 05/05/18 01:02 02:45 03:23 05:15 Temp 97.7 97.7 Pulse 72 Resp 16 16 16 16 B/P (MAP) 151/85 (107) Pulse Ox 98 98 98 98 O2 Delivery Room Air Room Air Room Air Room Air 05/05/18 05/05/18 05:45 07:40 Temp 97.7 97.7 Pulse 71 Resp 16 17 B/P (MAP) 139/73 (95) Pulse Ox 98 96 O2 Delivery Room Air Room Air Intake and Output 05/04/18 05/04/18 05/05/18 15:01 23:01 07:01 Intake Total 150 ml 100 ml Balance 150 ml 100 ml ALYSSA MARTELL MD May 05, 2018 08:55
[2018-05-05] MEDS ORDERED: VANC500V PO (09:00)
[2018-05-05] MEDS ORDERED: LINE600T PO (09:00)
--- NOTE | 2018-05-05 09:23 | NUR ---
IP: Pt remain C.diff + with s/s requiring contact plus precautions using brown sign.
--- NOTE | 2018-05-05 11:06 | PDOC ---
Infectious Disease Note Subjective Subjective feeling better, though c diff + ROS ROS no n/v/fever had 3 lose stool Vital Sign Vital Signs Vital Signs Date Time Temp Pulse Resp B/P (MAP) Pulse Ox O2 Delivery O2 Flow Rate FiO2 05/05/18 10:38 Room Air 05/05/18 07:40 97.7 71 17 139/73 (95) 96 97.7 Physical Exam PHYSICAL EXAM VITAL SIGNS: Stable, afebrile. HEENT: Both pupils are round and reacting. No conjunctival lesion. There is skin soft tissue infection below the right eyelid with small surrounding erythema less than 2 cm. NAD. NECK: Supple, no JVP, no lymphadenopathy. LUNGS: Clear. HEART: S1, S2 regular. ABDOMEN: Benign. EXTREMITIES: No edema, cyanosis. SKIN: Unremarkable. Other skin examination unremarkable. NEUROLOGICAL: The patient is neurologically alert, awake and appropriate. No focal neurologic deficit. Labs Lab Laboratory Tests Test 05/04/18 14:30 05/05/18 05:20 Clostridium difficile Toxin B Gene Positive (Negative) White Blood Count 3.0 x10^3/uL (4.0-11.0) Red Blood Count 2.44 x10^6/uL (3.50-5.40) Hemoglobin 8.1 g/dL (12.0-15.5) Hematocrit 24.2 % (36.0-47.0) Mean Corpuscular Volume 99 fL (79-100) Mean Corpuscular Hemoglobin 33 pg (25-35) Mean Corpuscular Hemoglobin Concent 34 g/dL (31-37) Red Cell Distribution Width 17.0 % (11.5-14.5) Platelet Count 75 x10^3/uL (140-400) Sodium Level 142 mmol/L (136-145) Potassium Level 3.8 mmol/L (3.5-5.1) Chloride Level 107 mmol/L (98-107) Carbon Dioxide Level 25 mmol/L (21-32) Anion Gap 10 (6-14) Blood Urea Nitrogen 14 mg/dL (7-20) Creatinine 1.1 mg/dL (0.6-1.0) Estimated GFR (Cockcroft-Gault) 55.6 Glucose Level 99 mg/dL (70-99) Calcium Level 9.4 mg/dL (8.5-10.1) Magnesium Level 2.0 mg/dL (1.8-2.4) Micro Microbiology 05/03/18 Blood Culture - Preliminary, Resulted NO GROWTH AFTER 1 DAY Objective Assessment SSI rt lower eye/face Leukopenia Metastatic cervical ca C diff Plan Plan of Care supportive care d/c home soon on po zyvox and po vanco recurrence education done LEIGHA WATERS MD May 05, 2018 11:06
[2018-05-05] MEDS ORDERED: HEPARIN PF 500 UNIT/5 ML DISP.SYRIN. IV ONE (11:15)
--- NOTE | 2018-05-05 12:20 | NUR ---
Discharge Note: AAMIR METCALF [address] [place] [address] Discharge instructions and discharge home medications reviewed with Patient and a copy given. All questions have been answered and understanding verbalized. The following instructions and handouts were given: F/U with Dr. Bowman as needed. Discontinued lines and drains: Port A Cath intact. Patient discharged to Home or Self Care with Family Member via Wheelchair.
--- NOTE | 2018-05-06 15:18 | DS ---
DATE OF DISCHARGE: 05/05/2018 CHIEF COMPLAINT: Cellulitis. HISTORY OF PRESENT ILLNESS: The patient is a 38-year-old female with a history of metastatic cervical cancer who is currently on chemotherapy. She started to experience some redness and swelling under her right eye on the week prior to admission. She saw her oncologist who referred her to an high reach operator. Apparently, the high reach operator did not feel that the infection involved the eye itself. Dr. Raines felt that the patient should be admitted for IV antibiotics for treatment of the cellulitis as she does not tolerate oral antibiotics very well. The patient came to the Emergency Department as advised. Treatment was started and she was admitted for further care. HOSPITAL COURSE: The patient was seen in consultation by Infectious Disease and Oncology. The cellulitis was in the skin and soft tissue under the right eye. She had been given one dose of acyclovir and clindamycin in the Emergency Department upon admission. When reevaluated the next morning, the infection was significantly improved. Dr. Pang recommended continued treatment with Zyvox only and this was done. The patient was able to tolerate the Zyvox orally and by the day of discharge the infection appeared to almost have completely resolved. The patient has a history of C. difficile colitis. She began to experience diarrhea shortly after her admission and her stool was unfortunately positive for C. difficile again. She was started on oral vancomycin for treatment of this and was able to tolerate this without difficulty. The patient has chronic hypomagnesemia and this was well controlled with the supplement that she takes at home. She has chronic abdominal pain and this was stable with oxycodone. Dr. Steve saw the patient and recommended deferring the start of maintenance chemotherapy that the patient was to have started. He advised the patient to follow up with her oncologist, Dr. Raines, as an outpatient after discharge. By the day of discharge, the patient was tolerating oral antibiotics without difficulty and her cellulitis was almost completely resolved, so she was discharged to home. FINAL DIAGNOSES: 1. Facial cellulitis. 2. Recurrent Clostridium difficile colitis. 3. Metastatic cervical cancer. 4. Chronic hypomagnesemia. 5. Chronic abdominal pain. DISCHARGE MEDICATIONS: Zyvox 600 mg 1 p.o. b.i.d. x 5 days, vancomycin 125 mg p.o. q.i.d. x 1 week and then taper the dosage to discontinue after second week, cyclobenzaprine 10 mg p.r.n., magnesium 150 mg t.i.d., oxycodone 5 mg q.4 hours p.r.n. pain, Compazine 10 mg tablet p.o. q.8 hours p.r.n. nausea and vomiting, Phenergan 12.5 mg suppository 1 per rectum p.r.n., zolpidem 5 mg at bedtime p.r.n. FOLLOWUP: Follow up with Dr. Bowman as needed. Follow up with Dr. Raines as advised. ALYSSA BOWMAN MD DR: HARJIT/kristopher JOB#: [id number] / [id number] MTDHolli
[2018-05-27] MEDS ORDERED: LANS30CA66 PO (14:07)
[2018-09-08] MEDS ORDERED: LISI-334 PO (20:15)
[2018-09-08] MEDS ORDERED: OXYC30TA21 PO (20:15)
[2018-09-08] MEDS ORDERED: OXYC20TA34 PO (20:15)
[2018-09-08] MEDS ORDERED: GABA600T7 PO (20:15)
[2018-09-09] MEDS ORDERED: OXYB5TAB7 PO (11:38)
[2018-09-09] MEDS ORDERED: CEPH-264 PO (11:38)
[2018-09-23] MEDS ORDERED: OXYC40TA21 PO (08:42)
[2018-09-23] MEDS ORDERED: LEVO500T59 PO (08:42)
[2018-10-04] MEDS ORDERED: OXYC5CAP PO (17:57)
[2018-10-04] MEDS ORDERED: OXYC20TA34 PO (17:59)
[2018-10-07] MEDS ORDERED: MIRA25TA PO (12:54)
== END 2018-05-05 12:20 | disposition home or self-care (01) | DRG 372 ==
LOC: ER 18:38 → 6 SOUTH 19:50
PROVIDERS: ADMIT Family Medicine; ATTEND Family Medicine
DX: A04.71 Enterocolitis due to Clostridium difficile, recurrent (principal); L03.211 Cellulitis of face; C53.9 Malignant neoplasm of cervix uteri, unspecified; D63.0 Anemia in neoplastic disease; D69.59 Other secondary thrombocytopenia; D70.1 Agranulocytosis secondary to cancer chemotherapy; E83.42 Hypomagnesemia; E86.0 Dehydration; G89.29 Other chronic pain; T45.1X5A Adverse effect of antineoplastic and immunosuppressive drugs, initial encounter; Z82.49 Family history of ischemic heart disease and other diseases of the circulatory system; Z85.41 Personal history of malignant neoplasm of cervix uteri; Z83.3 Family history of diabetes mellitus; Z86.19 Personal history of other infectious and parasitic diseases; Z87.891 Personal history of nicotine dependence; Z90.710 Acquired absence of both cervix and uterus; Y92.89 Other specified places as the place of occurrence of the external cause; Z88.8 Allergy status to other drugs, medicaments and biological substances; Z91.013 Allergy to seafood
CPT/HCPCS: 36415; 80048; 80053; 81001; 83605; 83735; 85025; 85027; 87040; 87086; 87493; 96365; 96367; 96375; 96376; J0133; J0780; J3010; J3490; J7030; 99285-25; G0378

== ENCOUNTER → 2018-05-03 | Outpatient (CLI) | payer OTHER ==
[2018-04-22 21:40] VITALS: BP 154/90
[~2018-05-03] MED LIST changes: +HEPARIN PF 500 UNIT/5 ML DISP.SYRIN. IV ONE; +IOHEXOL 240 MG/ML 50ML VIAL. PO ONE; +IOHEXOL 300 MG/ML 100ML VIAL. IV ONE; +LINE600T PO
--- NOTE | 2018-05-03 11:53 | RAD ---
CT CHEST ABD PELVIS W/CONTRAST Indication: Malignant neoplasm of cervix. Exposure: One or more of the following individualized dose reduction techniques were utilized for this examination: 1. Automated exposure control 2. Adjustment of the mA and/or kV according to patient size 3. Use of iterative reconstruction technique. Comparison: February 04, 2018 Contrast: Intravenous contrast was given. No oral contrast per request. CHEST: Thoracic aorta: No evidence of aneurysm ascending aorta measures 3.8 cm transverse, as compared with 3.3 cm on similar prior slice. Pulmonary arteries: Main central arteries appear patent. Thyroid gland: Visualized aspect is unremarkable. Lymph nodes: Multiple mildly enlarged mediastinal lymph nodes are again identified. A ict sales representative prevascular node, on series 2, image 20 measures 11 x 9 mm, as compared with 13 x 10 mm previously. A lymph node between the left common carotid artery and right brachiocephalic measures 10 mm as compared with 12 mm previously on similar slice. An AP window now measures 9 mm x 11 mm, as compared with 9 mm x 15 mm previously. A right subpectoral axillary lymph node measures 12 x 9 mm, compared with 8 x 6 mm on the prior study, having increased in size. A lymph node in the left lower neck adjacent to the left common carotid artery now measures 8 mm short axis as compared with 4 mm short axis previously as measured on coronal image. Heart: No significant pericadial effusion. Esophagus: Unremarkable Pleural spaces: No significant effusion Lungs: Mild linear markings in both lungs, compatible most likely with atelectasis or scarring. No dense airspace consolidation. Trachea and central airways: Patent Spine: Degenerative spondylosis. Bones: No destructive process. External Soft Tissue: No acute findings. Impression: 1. Numerous mediastinal lymph nodes are again identified. Overall these appear similar to slightly smaller, although a lymph node in the left lower neck has slightly increased in size there has also been increase in size of a right axillary subpectoral lymph node. Metastatic involvement is possible. 2. Ascending aorta measures slightly greater in transverse diameter than on prior study, 3.8 cm today as compared with 3.3 cm previously, compatible with mild ectasia. ABDOMEN PELVIS: Liver: Unremarkable Spleen: Unremarkable Pancreas: Unremarkable Adrenals: No evidence of mass. Kidneys: No obvious mass. Urinary tracts: No hydronephrosis. Gallbladder: No calcified stone Lymph nodes: No significant enlargement Vessels: Aorta is nonaneurysmal. GI tract: Small hiatal hernia. Appendix is normal. Reproductive organs:No evidence of mass. There is some fatty stranding in the region of the cul-de-sac pelvis, may be related to posttherapeutic change. There is also some stranding around the rectum and in the presacral soft tissues. These findings have increased Urinary bladder: Posterior wall is poorly defined, otherwise grossly unremarkable. Peritoneum: No evidence of pneumoperitoneum. No free fluid. Abdominal wall:Unremarkable Spine: Mild degenerative change. Transitional anatomy at the lumbosacral junction. Bones: No destructive process. External Soft Tissue: No acute findings. Impression: 1. Increase in soft tissue density in the pelvis at the midline, could be related to therapeutic changes since the prior study, such as radiation treatment. Otherwise, consider nonspecific inflammatory process. 2. No other significant abnormality. Electronically signed by: Surjit Babb MD (05/03/2018 11:48 AM) [id number]
== END | disposition home or self-care (01) ==
LOC: CT 09:36
PROVIDERS: ATTEND Internal Medicine Hematology & Oncology
DX: M47.894 Other spondylosis, thoracic region (principal); K44.9 Diaphragmatic hernia without obstruction or gangrene; I10 Essential (primary) hypertension; R59.0 Localized enlarged lymph nodes; Z85.41 Personal history of malignant neoplasm of cervix uteri
CPT/HCPCS: 71260; 74177; Q9966; Q9967

== ENCOUNTER 2018-07-01 18:42 | Emergency (ER) | payer OTHER ==
[~2018-07-01] VITALS: Ht 167.6 cm; Wt 93.0 kg
[~2018-07-01 18:42] MED LIST changes: +LANS30CA66 PO; +LINE600T PO
[2018-07-01 20:28] LABS: BASO % 1 % (0-3); EOS # 0.1 x10^3/uL (0.0-0.7); EOS % 2 % (0-3); HEMATOCRIT 26.8 % (36.0-47.0); HEMOGLOBIN 8.9 g/dL (12.0-15.5); LYMPH # 1.1 x10^3/uL (1.0-4.8); LYMPH % 26 % (24-48); MEAN CORPUSCULAR HEMOGLOBIN 32 pg (25-35); MEAN CORPUSCULAR HGB CONC 33 g/dL (31-37); MEAN CORPUSCULAR VOLUME 96 fL (79-100); MONO # 0.4 x10^3/uL (0.0-1.1); MONO % 10 % (0-9); NEUT # 2.5 x10^3uL (1.8-7.7); NEUT % 61 % (31-73); PLATELET COUNT 130 x10^3/uL (140-400); WHITE BLOOD COUNT 4.1 x10^3/uL (4.0-11.0)
[2018-07-01 20:42] LABS: CALCIUM 8.5 mg/dL (8.5-10.1); CREATININE 1.5 mg/dL (0.6-1.0); GFR 38.9; POTASSIUM 3.7 mmol/L (3.5-5.1)
[2018-07-01 20:47] LABS: ALBUMIN 2.9 g/dL (3.4-5.0); ALBUMIN/GLOBULIN RATIO 0.8 (1.0-1.7); TOTAL BILIRUBIN 0.2 mg/dL (0.2-1.0); TOTAL PROTEIN 6.7 g/dL (6.4-8.2)
[2018-07-01 20:56] LABS: CREATINE KINASE 36 U/L (26-192)
[2018-07-01 21:24] VITALS: BP 180/90
--- NOTE | 2018-07-01 21:36 | RAD ---
CHEST PA LATERAL CLINICAL INDICATION: swelling, hx cervical cancer COMPARISON: 02/23/2018 FINDINGS: Stable position of right chest wall Chemo-Port. Heart is normal in size. Lungs are clear. No pneumothorax or pleural effusion. Visualized bony thorax within normal limits. IMPRESSION: No acute pulmonary process. Electronically signed by: Kenny Garcia DO (07/01/2018 9:33 PM) [facility]
--- NOTE | 2018-07-01 21:52 | RAD ---
Ultrasound venous Doppler INDICATION:ble swelling x 1 day, hx of cervical ca, currently on chemo TECHNIQUE: Grayscale, color Doppler and spectral waveform ultrasound images of the bilateral lower extremities deep veins obtained. COMPARISON: None FINDINGS: The interrogated deep veins are compressible and demonstrate evidence of blood flow with normal respiratory variation and response to augmentation. Enlarged right groin lymph node is seen measuring 1.7 x 1.8 x 0.6 cm. IMPRESSION: 1. No sonographic evidence of acute DVT of the bilateral lower extremity deep veins. 2. Enlarged right groin infarct, nonspecific. Electronically signed by: Kenny Garcia DO (07/01/2018 9:49 PM) [facility]
--- NOTE | 2018-07-01 22:36 | PHYS DOC ---
Past Medical History Past Medical History: Cancer, Other Additional Past Medical Histor: CERVICAL CANCER Past Surgical History: Hysterectomy, Other Additional Past Surgical Histo: HYSTERECTOMY, Port placement Alcohol Use: None Drug Use: None Adult General Chief Complaint Chief Complaint: LOWER EXTREMITY SWELLING HPI HPI 38-year-old female with past medical history of cancer who is currently receiving maintenance chemotherapy presents with report of bilateral lower extremity edema. Reports this edema seems to start yesterday at 1430. Denies any pain. Denies chest pain or shortness of breath. Denies known trauma. Denies redness. Denies fever or chills. Patient reports she recently started to see a windrower operator due to change in kidney function which is thought to be secondary to new chemotherapy medication- "Avastin". Patient reports she was instructed to present to the ER for further evaluation. Review of Systems Review of Systems Constitutional: Denies fever or chills [] Eyes: Denies change in visual acuity, redness, or eye pain [] HENT: Denies nasal congestion or sore throat [] Respiratory: Denies cough or shortness of breath [] Cardiovascular: Denies chest pain or palpitations or pleuritic pain GI: Denies abdominal pain, nausea, vomiting, or diarrhea [] : Denies dysuria or hematuria [] Musculoskeletal: Reports bilateral lower extremity edema, denies pain Integument: Denies rash or skin lesions [] Neurologic: Denies headache, focal weakness or sensory changes [] Complete systems were reviewed and found to be within normal limits, except as documented in this note. Current Medications Current Medications Current Medications Medications (Trade) Dose Ordered Sig/Sanna Start Time Stop Time Status Last Admin Dose Admin Bumetanide (Bumex) 0.5 mg 1X ONCE 07/01/18 22:55 07/01/18 22:56 DC 07/01/18 22:54 0.5 MG Heparin Sodium (Porcine) (Hep Lock Adult) 500 unit 1X ONCE 07/01/18 22:55 07/01/18 22:56 DC 07/01/18 23:01 500 UNIT Allergies Allergies Allergies Coded Allergies Type Severity Reaction Last Updated Verified metronidazole Allergy Intermediate Nausea 06/18/18 Yes shellfish derived Allergy Intermediate 06/18/18 Yes ondansetron Adverse Reaction Severe 06/18/18 Yes Physical Exam Physical Exam Constitutional: Well developed, well nourished, no acute distress, non-toxic appearance. [] HENT: Normocephalic, atraumatic, oropharynx moist Eyes: Conjunctiva normal, no discharge. [] Neck: Normal range of motion, no tenderness, supple Cardiovascular: Heart rate regular rhythm, no murmur [] Lungs & Thorax: Bilateral breath sounds clear to auscultation [] Abdomen: Soft, no tenderness Skin: Warm, dry, no erythema, no rash. [] Extremities: No tenderness, ROM intact, 1+ edema to bilateral lower extremities. [] Neurologic: Alert and oriented X 3, no focal deficits noted. [] Psychologic: Affect normal, judgement normal, mood normal. [] Current Patient Data Vital Signs Vital Signs Date Time Temp Pulse Resp B/P (MAP) Pulse Ox O2 Delivery O2 Flow Rate FiO2 07/01/18 21:24 68 20 180/90 (120) 99 Room Air 07/01/18 18:57 98.0 98.0 Lab Values Laboratory Tests Test 07/01/18 20:15 White Blood Count 4.1 x10^3/uL (4.0-11.0) Red Blood Count 2.80 x10^6/uL (3.50-5.40) L Hemoglobin 8.9 g/dL (12.0-15.5) L Hematocrit 26.8 % (36.0-47.0) L Mean Corpuscular Volume 96 fL (79-100) Mean Corpuscular Hemoglobin 32 pg (25-35) Mean Corpuscular Hemoglobin Concent 33 g/dL (31-37) Red Cell Distribution Width 15.0 % (11.5-14.5) H Platelet Count 130 x10^3/uL (140-400) L Neutrophils (%) (Auto) 61 % (31-73) Lymphocytes (%) (Auto) 26 % (24-48) Monocytes (%) (Auto) 10 % (0-9) H Eosinophils (%) (Auto) 2 % (0-3) Basophils (%) (Auto) 1 % (0-3) Neutrophils # (Auto) 2.5 x10^3uL (1.8-7.7) Lymphocytes # (Auto) 1.1 x10^3/uL (1.0-4.8) Monocytes # (Auto) 0.4 x10^3/uL (0.0-1.1) Eosinophils # (Auto) 0.1 x10^3/uL (0.0-0.7) Basophils # (Auto) 0.0 x10^3/uL (0.0-0.2) Sodium Level 143 mmol/L (136-145) Potassium Level 3.7 mmol/L (3.5-5.1) Chloride Level 108 mmol/L (98-107) H Carbon Dioxide Level 23 mmol/L (21-32) Anion Gap 12 (6-14) Blood Urea Nitrogen 24 mg/dL (7-20) H Creatinine 1.5 mg/dL (0.6-1.0) H Estimated GFR (Cockcroft-Gault) 38.9 BUN/Creatinine Ratio 16 (6-20) Glucose Level 94 mg/dL (70-99) Calcium Level 8.5 mg/dL (8.5-10.1) Magnesium Level 2.0 mg/dL (1.8-2.4) Total Bilirubin 0.2 mg/dL (0.2-1.0) Aspartate Amino Transferase (AST) 19 U/L (15-37) Alanine Aminotransferase (ALT) 14 U/L (14-59) Alkaline Phosphatase 72 U/L (46-116) Creatine Kinase 36 U/L (26-192) Creatine Kinase MB (Mass) < 0.5 ng/mL (0.0-3.6) Creatine Kinase MB Relative Index % (0-4) Troponin I Quantitative < 0.017 ng/mL (0.000-0.055) UH-Wrn-K-Type Natriuretic Peptide 592 pg/mL (0-124) H Total Protein 6.7 g/dL (6.4-8.2) Albumin 2.9 g/dL (3.4-5.0) L Albumin/Globulin Ratio 0.8 (1.0-1.7) L Laboratory Tests 07/01/18 20:15 Laboratory Tests 07/01/18 20:15 EKG EKG @1946 NSR at 71bpm, T wave inversions noted to V2 Radiology/Procedures Radiology/Procedures PROCEDURE: VENOUS LOWER EXT BILATERAL Ultrasound venous Doppler INDICATION:ble swelling x 1 day, hx of cervical ca, currently on chemo TECHNIQUE: Grayscale, color Doppler and spectral waveform ultrasound images of the bilateral lower extremities deep veins obtained. COMPARISON: None FINDINGS: The interrogated deep veins are compressible and demonstrate evidence of blood flow with normal respiratory variation and response to augmentation. Enlarged right groin lymph node is seen measuring 1.7 x 1.8 x 0.6 cm. IMPRESSION: 1. No sonographic evidence of acute DVT of the bilateral lower extremity deep veins. 2. Enlarged right groin infarct, nonspecific. Electronically signed by: Kenny Garcia DO (07/01/2018 9:49 PM) [facility] PROCEDURE: CHEST PA & LATERAL CHEST PA LATERAL CLINICAL INDICATION: swelling, hx cervical cancer COMPARISON: 02/23/2018 FINDINGS: Stable position of right chest wall Chemo-Port. Heart is normal in size. Lungs are clear. No pneumothorax or pleural effusion. Visualized bony thorax within normal limits. IMPRESSION: No acute pulmonary process. Electronically signed by: Kenny Garcia DO (07/01/2018 9:33 PM) [facility] Course & Med Decision Making Course & Med Decision Making Pertinent Labs and Imaging studies reviewed. (See chart for details) Patient presents with bilateral lower extremity edema since yesterday. Denies any shortness of breath or pleuritic chest pain. Patient does have a history of cancer for which she is currently receiving maintenance chemotherapy. Denies any fever or chills. Labs obtained and posted to chart. Chest x-ray clear. Bilateral venous Dopplers negative for acute DVTs. Patient also noted to have elevated blood pressure from her baseline. Symptomatic treatment provided. Patient to follow closely with PCP in morning. Patient stable for discharge with outpatient follow-up with PCP. Discussed findings and plan with patient and friend, who acknowledge understanding and agreement. Dragon Disclaimer Dragon Disclaimer This electronic medical record was generated, in whole or in part, using a voice recognition dictation system. Departure Departure Impression: Primary Impression: Peripheral edema Additional Impression: Elevated blood pressure reading Disposition: HOME, SELF-CARE Condition: STABLE Referrals: ALYSSA MARTELL MD (PCP) POWER MEHTA MD, VENU S MD Patient Instructions: Hypertension, [id number], Peripheral Edema Additional Instructions: Follow up with your doctor tomorrow for recheck of your blood pressure and further management of your peripheral edema Problem Qualifiers WINNIE REYES DO Jul 01, 2018 22:36
[2018-07-01] MEDS ORDERED: HEPARIN PF 500 UNIT/5 ML DISP.SYRIN. IV ONE (22:55)
[2018-07-01] MEDS ORDERED: BUMETANIDE 1 MG/4 ML VIAL. IV ONE (22:55)
--- NOTE | 2018-07-02 08:27 | EKG ---
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
== END 2018-07-01 22:58 | disposition home or self-care (01) ==
LOC: ER 18:42
DX: R60.0 Localized edema (principal); R03.0 Elevated blood-pressure reading, without diagnosis of hypertension; Z90.710 Acquired absence of both cervix and uterus; Z88.5 Allergy status to narcotic agent; Z88.8 Allergy status to other drugs, medicaments and biological substances; Z91.013 Allergy to seafood
CPT/HCPCS: 36415; 71046; 80053; 82553; 83735; 83880; 84484; 85025; 93005; 93970; 96374; 96375; 99284; J3490

== ENCOUNTER 2018-07-25 20:13 | Emergency (ER) | payer OTHER ==
[~2018-07-25] VITALS: Ht 167.6 cm; Wt 93.0 kg
[2018-07-25 21:12] LABS: BASO % 0 % (0-3); EOS # 0.1 x10^3/uL (0.0-0.7); EOS % 2 % (0-3); HEMOGLOBIN 9.3 g/dL (12.0-15.5); LYMPH # 1.1 x10^3/uL (1.0-4.8); LYMPH % 24 % (24-48); MEAN CORPUSCULAR HEMOGLOBIN 31 pg (25-35); MEAN CORPUSCULAR HGB CONC 33 g/dL (31-37); MEAN CORPUSCULAR VOLUME 93 fL (79-100); MONO # 0.4 x10^3/uL (0.0-1.1); MONO % 8 % (0-9); NEUT # 3.1 x10^3uL (1.8-7.7); NEUT % 66 % (31-73); PLATELET COUNT 168 x10^3/uL (140-400); RED BLOOD COUNT 3.01 x10^6/uL (3.50-5.40); WHITE BLOOD COUNT 4.7 x10^3/uL (4.0-11.0)
[2018-07-25] MEDS ORDERED: FAMOTIDINE 20 MG/2 ML VIAL IVP ONE (21:30)
[2018-07-25] MEDS ORDERED: METOCLOPRAMIDE HCL 10 MG/2 ML VIAL. IV ONE (21:30)
[2018-07-25] MEDS ORDERED: IV NORMAL SALINE 1000ML BAG 1,000 ML IV ONE (21:30)
[2018-07-25] MEDS ORDERED: fentaNYL PF VIAL 100 MCG/2 ML VIAL IV ONE (21:30)
[2018-07-25 21:36] LABS: CALCIUM 8.9 mg/dL (8.5-10.1); CREATININE 1.8 mg/dL (0.6-1.0); GFR 31.5; POTASSIUM 3.3 mmol/L (3.5-5.1)
[2018-07-25 21:38] LABS: BILIRUBIN,URINE NEGATIVE (NEG); CLARITY,URINE CLEAR; COLOR,URINE YELLOW; NITRITE,URINE NEGATIVE (NEG); PROTEIN,URINE 100 mg/dL (NEG-TRACE); UROBILINOGEN,URINE 0.2 mg/dL (0.2 mg/dL)
[2018-07-25 21:42] LABS: ALBUMIN/GLOBULIN RATIO 0.7 (1.0-1.7); TOTAL BILIRUBIN 0.2 mg/dL (0.2-1.0); TOTAL PROTEIN 7.1 g/dL (6.4-8.2)
[2018-07-25 21:45] LABS: BACTERIA,URINE FEW /HPF (0-FEW); HYALINE CASTS, URINE MANY /HPF; RBC,URINE OCC /HPF (0-2); SQUAMOUS EPITHELIAL CELL,UR MOD /LPF; WBC,URINE 20-40 /HPF (0-4)
--- NOTE | 2018-07-25 22:30 | RAD ---
CT abdomen and pelvis without contrast: Reason for examination: Left upper quadrant pain. Evaluate for perforation. History of cervical cancer. Helical images were obtained through the abdomen and pelvis with no intravenous or oral contrast administered. Reconstruction was performed in sagittal and coronal planes. Exposure: One or more of the following individualized dose reduction techniques were utilized for this examination: 1. Automated exposure control 2. Adjustment of the mA and/or kV according to patient size 3. Use of iterative reconstruction technique. The lung bases show some linear density consistent with atelectasis bilaterally. The heart size appears to be upper normal with no pericardial effusion. No abnormality seen at the liver. There are splenic granuloma. No abnormality seen in the gallbladder, pancreas or adrenal glands. The abdominal aorta and inferior vena cava show no acute abnormalities. No abnormality seen at the appendix. The colon shows no diverticulosis or diverticulitis and no colitis. The small intestinal tract shows no abnormally dilated or obstructed bowel. There is a large amount of fluid within the stomach without wall thickening or obstruction evident. The kidneys show no renal masses or calculi. There does appear to be some mild prominence of the renal pelvis and calyceal systems but no evidence of obstructive uropathy. There are a few small lymph nodes in the retroperitoneal region. No abnormality seen at the bladder or vaginal cuff. There is a small amount of free fluid in the pelvis. No free air is seen. No abdominal wall abnormalities are evident. No acute abnormalities are seen at the bone structures. IMPRESSION: Linear atelectasis at both lung bases. Prominent renal calyceal systems and renal pelves bilaterally without evidence of obstruction. Small amount of free fluid in the pelvis. Small lymph nodes in the retroperitoneum. Large amount of fluid in gastric content in the stomach but no apparent obstruction. No evidence of intestinal perforation. Electronically signed by: Latisha Altamirano MD (07/25/2018 10:27 PM) [facility]
--- NOTE | 2018-07-25 22:41 | PHYS DOC ---
Past Medical History Past Medical History: Cancer, Other Additional Past Medical Histor: CERVICAL CANCER Past Surgical History: Hysterectomy, Other Additional Past Surgical Histo: HYSTERECTOMY, Port placement Alcohol Use: None Drug Use: None Adult General Chief Complaint Chief Complaint: ABDOMINAL PAIN HPI HPI Patient is a 38 year old [f__sex] who presents with [] Review of Systems Review of Systems Constitutional: Denies fever or chills [] Eyes: Denies change in visual acuity, redness, or eye pain [] HENT: Denies nasal congestion or sore throat [] Respiratory: Denies cough or shortness of breath [] Cardiovascular: No additional information not addressed in HPI [] GI: Denies abdominal pain, nausea, vomiting, bloody stools or diarrhea [] : Denies dysuria or hematuria [] Musculoskeletal: Denies back pain or joint pain [] Integument: Denies rash or skin lesions [] Neurologic: Denies headache, focal weakness or sensory changes [] Endocrine: Denies polyuria or polydipsia [] All other systems were reviewed and found to be within normal limits, except as documented in this note. Current Medications Current Medications Current Medications Medications (Trade) Dose Ordered Sig/Sanna Start Time Stop Time Status Last Admin Dose Admin Famotidine (Pepcid Vial) 20 mg 1X ONCE 07/25/18 21:30 07/25/18 21:31 DC 07/25/18 21:30 20 MG Fentanyl Citrate (Fentanyl 2ml Vial) 75 mcg 1X ONCE 07/25/18 21:30 07/25/18 21:31 DC 07/25/18 21:26 75 MCG Metoclopramide HCl (Reglan Vial) 10 mg 1X ONCE 07/25/18 21:30 07/25/18 21:31 DC 07/25/18 21:27 10 MG Sodium Chloride 1,000 ml @ 1,000 mls/hr 1X ONCE 07/25/18 21:30 07/25/18 22:29 DC 07/25/18 21:22 1,000 MLS/HR Allergies Allergies Allergies Coded Allergies Type Severity Reaction Last Updated Verified metronidazole Allergy Intermediate Nausea 07/23/18 Yes morphine Allergy Intermediate Hypoxia, hypotension 07/25/18 Yes shellfish derived Allergy Intermediate 07/23/18 Yes ondansetron Adverse Reaction Severe 07/23/18 Yes Physical Exam Physical Exam Constitutional: Well developed, well nourished, no acute distress, non-toxic appearance. [] HENT: Normocephalic, atraumatic, bilateral external ears normal, oropharynx m oist, no oral exudates, nose normal. [] Eyes: PERRLA, EOMI, conjunctiva normal, no discharge. [] Neck: Normal range of motion, no tenderness, supple, no stridor. [] Cardiovascular:Heart rate regular rhythm, no murmur [] Lungs & Thorax: Bilateral breath sounds clear to auscultation [] Abdomen: Bowel sounds normal, soft, no tenderness, no masses, no pulsatile masses. [] Skin: Warm, dry, no erythema, no rash. [] Back: No tenderness, no CVA tenderness. [] Extremities: No tenderness, no cyanosis, no clubbing, ROM intact, no edema. [] Neurologic: Alert and oriented X 3, normal motor function, normal sensory function, no focal deficits noted. [] Psychologic: Affect normal, judgement normal, mood normal. [] Current Patient Data Vital Signs Vital Signs Date Time Temp Pulse Resp B/P (MAP) Pulse Ox O2 Delivery O2 Flow Rate FiO2 07/25/18 21:26 20 97 Room Air 07/25/18 20:30 99.9 74 152/82 (105) 99.9 Lab Values Laboratory Tests Test 07/25/18 20:38 07/25/18 20:50 White Blood Count 4.7 x10^3/uL (4.0-11.0) Red Blood Count 3.01 x10^6/uL (3.50-5.40) L Hemoglobin 9.3 g/dL (12.0-15.5) L Hematocrit 28.0 % (36.0-47.0) L Mean Corpuscular Volume 93 fL (79-100) Mean Corpuscular Hemoglobin 31 pg (25-35) Mean Corpuscular Hemoglobin Concent 33 g/dL (31-37) Red Cell Distribution Width 15.0 % (11.5-14.5) H Platelet Count 168 x10^3/uL (140-400) Neutrophils (%) (Auto) 66 % (31-73) Lymphocytes (%) (Auto) 24 % (24-48) Monocytes (%) (Auto) 8 % (0-9) Eosinophils (%) (Auto) 2 % (0-3) Basophils (%) (Auto) 0 % (0-3) Neutrophils # (Auto) 3.1 x10^3uL (1.8-7.7) Lymphocytes # (Auto) 1.1 x10^3/uL (1.0-4.8) Monocytes # (Auto) 0.4 x10^3/uL (0.0-1.1) Eosinophils # (Auto) 0.1 x10^3/uL (0.0-0.7) Basophils # (Auto) 0.0 x10^3/uL (0.0-0.2) Prothrombin Time 14.0 SEC (11.7-14.0) Prothrombin Time INR 1.1 (0.8-1.1) PTT 37 SEC (24-38) Sodium Level 143 mmol/L (136-145) Potassium Level 3.3 mmol/L (3.5-5.1) L Chloride Level 106 mmol/L (98-107) Carbon Dioxide Level 26 mmol/L (21-32) Anion Gap 11 (6-14) Blood Urea Nitrogen 22 mg/dL (7-20) H Creatinine 1.8 mg/dL (0.6-1.0) H Estimated GFR (Cockcroft-Gault) 31.5 BUN/Creatinine Ratio 12 (6-20) Glucose Level 124 mg/dL (70-99) H Calcium Level 8.9 mg/dL (8.5-10.1) Total Bilirubin 0.2 mg/dL (0.2-1.0) Aspartate Amino Transferase (AST) 18 U/L (15-37) Alanine Aminotransferase (ALT) 13 U/L (14-59) L Alkaline Phosphatase 69 U/L (46-116) Total Protein 7.1 g/dL (6.4-8.2) Albumin 3.0 g/dL (3.4-5.0) L Albumin/Globulin Ratio 0.7 (1.0-1.7) L Lipase 102 U/L (73-393) Urine Collection Type Unknown Urine Color Yellow Urine Clarity Clear Urine pH 5.0 Urine Specific [place] 1.015 Urine Protein 100 mg/dL (NEG-TRACE) Urine Glucose (UA) Negative mg/dL (NEG) Urine Ketones (Stick) Negative mg/dL (NEG) Urine Blood Negative (NEG) Urine Nitrite Negative (NEG) Urine Bilirubin Negative (NEG) Urine Urobilinogen Dipstick 0.2 mg/dL (0.2 mg/dL) Urine Leukocyte Esterase Negative (NEG) Urine RBC Occ /HPF (0-2) Urine WBC 20-40 /HPF (0-4) Urine Squamous Epithelial Cells Mod /LPF Urine Bacteria Few /HPF (0-FEW) Urine Hyaline Casts Many /HPF Urine Mucus Marked /LPF Laboratory Tests 07/25/18 20:38 Laboratory Tests 07/25/18 20:38 EKG EKG [] Radiology/Procedures Radiology/Procedures [] Course & Med Decision Making Course & Med Decision Making Pertinent Labs and Imaging studies reviewed. (See chart for details) [] Dragon Disclaimer Dragon Disclaimer This electronic medical record was generated, in whole or in part, using a voice recognition dictation system. Departure Departure Impression: Primary Impression: Abdominal pain Disposition: HOME, SELF-CARE Condition: STABLE Referrals: ALYSSA MARTELL MD (PCP) Patient Instructions: Abdominal Pain (Nonspecific) Problem Qualifiers Primary Impression: Abdominal pain Abdominal location: left upper quadrant Qualified Codes: R10.12 - Left upper quadrant pain WINNIE REYES DO Jul 25, 2018 22:41
[2018-07-25 22:59] VITALS: BP 158/86
[2018-07-25] MEDS ORDERED: HEPARIN PF 500 UNIT/5 ML DISP.SYRIN. IV ONE (23:30)
== END 2018-07-25 23:00 | disposition home or self-care (01) ==
LOC: ER 20:13
DX: R10.12 Left upper quadrant pain (principal); Z90.710 Acquired absence of both cervix and uterus; Z88.5 Allergy status to narcotic agent; Z88.8 Allergy status to other drugs, medicaments and biological substances; Z91.013 Allergy to seafood
CPT/HCPCS: 36415; 74176; 80053; 81001; 83690; 85025; 85610; 85730; 87086; 96374; 96375; 99285; J2765; J3010; J3490; J7030

== ENCOUNTER → 2018-08-26 | Outpatient (CLI) | payer OTHER ==
[~2018-08-26] MED LIST changes: +CONTRAST GIVEN. MC PRN; +IOHEXOL 240 MG/ML 50ML VIAL. PO ONE
--- NOTE | 2018-08-26 16:25 | RAD ---
CT of the chest, abdomen and pelvis without contrast, 08/26/2018: History: Cervical cancer with metastatic disease Multidetector CT imaging was performed without IV contrast as requested. Oral contrast material was given for GI tract opacification. Comparison is made to a study from 05/03/2018. Several mediastinal lymph nodes have increased in size. For example a lymph node lying between the innominate and left common carotid arteries which measured 13 x 6 mm on the previous study now measures 17 x 10 mm. Several small lymph nodes along the left lateral aspect of the aortic arch have also increased slightly in size. A right Port-A-Cath extends into the superior vena cava. There is a calcified granuloma in the right lower lobe. There are calcified lymph nodes at the right hilum. There are mild unchanged streaky opacities in the right middle lobe and lingula compatible with scarring and/or chronic atelectasis. No pulmonary mass is identified. There is no evidence of pleural fluid. The unopacified liver is unremarkable. No gallbladder abnormality is seen. The pancreas is unremarkable. The spleen is of normal size. The unopacified kidneys show no abnormality. Retroperitoneal lymph nodes have increased in size. A 23 x 11 mm node or node cluster is now evident along the inferior aspect of the left renal vein. No definite iliac adenopathy is seen. The uterus is surgically absent. There is streaky increased density in the deep pelvic fat, particularly surrounding the rectum and bladder, probably representing inflammation and/or scarring. Has this patient undergone radiation therapy? This appears more prominent than on the previous study. The bowel loops are not dilated. No free fluid is evident in the abdomen or pelvis. There are mild scattered degenerative changes in the spine. IMPRESSION: 1. Worsening mild mediastinal and retroperitoneal adenopathy presumably on a metastatic basis. 2. Mild streaky increased densities in the deep pelvic fat, possibly representing inflammation or scarring on a post therapeutic basis. PQRS Compliance Statement: One or more of the following individualized dose reduction techniques were utilized for this examination: 1. Automated exposure control 2. Adjustment of the mA and/or kV according to patient size 3. Use of iterative reconstruction technique PQRS Compliance Statement: One or more of the following individualized dose reduction techniques were utilized for this examination: 1. Automated exposure control 2. Adjustment of the mA and/or kV according to patient size 3. Use of iterative reconstruction technique
== END | disposition home or self-care (01) ==
LOC: CT 09:04
PROVIDERS: ATTEND Internal Medicine Hematology & Oncology
DX: C53.8 Malignant neoplasm of overlapping sites of cervix uteri (principal); J98.59 Other diseases of mediastinum, not elsewhere classified; J84.10 Pulmonary fibrosis, unspecified; R91.1 Solitary pulmonary nodule; R91.8 Other nonspecific abnormal finding of lung field; R59.0 Localized enlarged lymph nodes; M47.819 Spondylosis without myelopathy or radiculopathy, site unspecified
CPT/HCPCS: 71250; 74176; Q9966

== ENCOUNTER 2018-09-23 12:40 | Emergency (ER) | payer OTHER ==
[~2018-09-23] VITALS: Ht 165.1 cm; Wt 99.3 kg
[~2018-09-23 12:40] MED LIST changes: +CEPH-264 PO; -CONTRAST GIVEN. MC PRN; +GABA600T7 PO; -IOHEXOL 240 MG/ML 50ML VIAL. PO ONE; +LISI-334 PO; +OXYB5TAB7 PO; +OXYC20TA34 PO; +OXYC30TA21 PO; +OXYC40TA21 PO
[2018-09-23 12:41] VITALS: BP 127/58
--- NOTE | 2018-09-23 13:05 | PHYS DOC ---
Past Medical History Past Medical History: Cancer, Other Additional Past Medical Histor: CERVICAL CANCER Past Surgical History: Hysterectomy, Other Additional Past Surgical Histo: HYSTERECTOMY, Port placement Alcohol Use: Rarely Drug Use: None Adult General Chief Complaint Chief Complaint: OTHER COMPLAINTS HPI HPI Patient is a 38 year old 38 who presents for removal of Port-A-Cath accessed. Patient was admitted at this hospital and was discharged today but Port-A-Cath access was not remove and was told to come to emergency room for removal of the Port-A-Cath access. Patient denies any new problem since she was discharged today. Review of Systems Review of Systems Constitutional: Denies fever or chills [] Eyes: Denies change in visual acuity, redness, or eye pain [] HENT: Denies nasal congestion or sore throat [] Respiratory: Denies cough or shortness of breath [] Cardiovascular: No additional information not addressed in HPI [] GI: Denies abdominal pain, nausea, vomiting, bloody stools or diarrhea [] : Denies dysuria or hematuria [] Musculoskeletal: Denies back pain or joint pain [] Integument: Denies rash or skin lesions [] Neurologic: Denies headache, focal weakness or sensory changes [] Endocrine: Denies polyuria or polydipsia [] All other systems were reviewed and found to be within normal limits, except as documented in this note. Current Medications Current Medications Current Medications Medications (Trade) Dose Ordered Sig/Sanna Start Time Stop Time Status Last Admin Dose Admin Heparin Sodium (Porcine) (Hep Lock Adult) 500 unit 1X ONCE 09/23/18 13:30 09/23/18 13:31 DC 09/23/18 13:28 500 UNIT Allergies Allergies Allergies Coded Allergies Type Severity Reaction Last Updated Verified morphine Allergy Intermediate Hypoxia, hypotension 07/25/18 Yes shellfish derived Allergy Intermediate 07/23/18 Yes ondansetron Adverse Reaction Severe 07/23/18 Yes metronidazole Adverse Reaction Intermediate Nausea 09/17/18 Yes Physical Exam Physical Exam Constitutional: Well developed, well nourished, no acute distress, non-toxic appearance. [] HENT: Normocephalic, atraumatic Eyes: PERRLA, EOMI, conjunctiva normal, no discharge. [] Neck: Normal range of motion, no tenderness, supple, no stridor. [] Cardiovascular:Heart rate regular rhythm, no murmur [] Lungs & Thorax: Bilateral breath sounds clear to auscultation [] Extremities: No tenderness, no cyanosis, no clubbing, ROM intact, no edema. [] Neurologic: Alert and oriented X 3, normal motor function, normal sensory function, no focal deficits noted. [] Psychologic: Affect anxious, judgement normal, mood normal. [] Current Patient Data Vital Signs Vital Signs Date Time Temp Pulse Resp B/P (MAP) Pulse Ox O2 Delivery O2 Flow Rate FiO2 09/23/18 12:41 98.3 88 20 127/58 (81) 96 Room Air 98.3 EKG EKG [] Radiology/Procedures Radiology/Procedures [] Course & Med Decision Making Course & Med Decision Making Evaluation of patient in ER showed 38-year-old female patient presented to ER for removal of Port-A-Cath access after her hospitalization and discharging today. Port-A-Cath access was removed without problem. Dragon Disclaimer Dragon Disclaimer This electronic medical record was generated, in whole or in part, using a voice recognition dictation system. Departure Departure Impression: Primary Impression: Port-A-Cath in place Disposition: HOME, SELF-CARE ([id number]) Condition: IMPROVED Referrals: ALYSSA MARTELL MD (PCP) Patient Instructions: Implanted Port Instructions Additional Instructions: Follow-up with your primary care physician in 3-5 days Return to ER if not getting better CLAUDE ORTIZ MD Sep 23, 2018 13:05
[2018-09-23] MEDS ORDERED: HEPARIN PF 500 UNIT/5 ML DISP.SYRIN. IV ONE (13:30)
== END 2018-09-23 13:29 | disposition home or self-care (01) ==
LOC: ER 12:40
DX: Z45.2 Encounter for adjustment and management of vascular access device (principal); Z88.5 Allergy status to narcotic agent; Z91.013 Allergy to seafood; Z88.8 Allergy status to other drugs, medicaments and biological substances
CPT/HCPCS: 96374; 99284

== ENCOUNTER 2018-09-27 12:03 | Emergency (ER) | payer OTHER ==
[~2018-09-27] VITALS: Ht 167.6 cm; Wt 93.0 kg
[2018-09-27] MEDS ORDERED: HYDROmorphone 2 MG/ML VIAL IV ONE (12:30)
[2018-09-27] MEDS ORDERED: OXYBUTYNIN CHLORIDE 5 MG TABLET PO ONE (12:30)
--- NOTE | 2018-09-27 12:31 | PHYS DOC ---
Past Medical History Past Medical History: Cancer, Other Additional Past Medical Histor: CERVICAL CANCER Past Surgical History: Hysterectomy, Other Additional Past Surgical Histo: Port placement, cystoscopy-09/23/18 Alcohol Use: Rarely Drug Use: None Adult General Chief Complaint Chief Complaint: PELVIC PAIN HPI HPI Patient is a 38-year-old female with a past history of metastatic cervical cancer, as well as chronic pelvic pain, recently diagnosed with a urinary tract infection, was recently hospitalized here for similar symptoms, also recently had urinary retention, underwent a cystoscopy last week, which showed inflammation according to the patient and repeat procedure with biopsies was scheduled for the coming weeks, who presents to the emergency department for sumaya luation of increasing pelvic pain which began today. The patient states that the pain that she is having feels exactly the same as the pain she had when she was in urinary retention a few weeks ago, but she went to see the urologist office, and did not have any obvious evidence of urinary retention on bladder scanning, born out by repeat bladder scanning in the emergency department. She has not had any fevers or chills. She just completed a course of Levaquin for her urinary tract infection. She has not had any dysuria, but feels like she is unable to urinate at this time. She was on oxybutynin, but has not taken it for the past few days, because she was feeling better and the medication made her sleepy. There are no alleviating or exacerbating factors to her symptoms otherwise. Available notes from the patient's recent hospitalization of been reviewed. Review of Systems Review of Systems Constitutional: Denies fever or chills [] Eyes: Denies change in visual acuity, redness, or eye pain [] HENT: Denies nasal congestion or sore throat [] Respiratory: Denies cough or shortness of breath [] Cardiovascular: The patient denies any shortness of breath, chest pain, palpitations, or orthopnea [] GI: Denies nausea, vomiting, bloody stools or diarrhea [] : As per history of present illness [] Musculoskeletal: Denies back pain or joint pain [] Integument: Denies rash or skin lesions [] Neurologic: Denies headache, focal weakness or sensory changes [] Endocrine: Denies polyuria or polydipsia [] All other systems were reviewed and found to be within normal limits, except as documented in this note. Current Medications Current Medications Current Medications Medications (Trade) Dose Ordered Sig/Sanna Start Time Stop Time Status Last Admin Dose Admin Fentanyl Citrate (Fentanyl 2ml Vial) 100 mcg 1X ONCE 09/27/18 13:30 09/27/18 13:31 DC 09/27/18 13:26 100 MCG Hydromorphone HCl (Dilaudid) 2 mg 1X ONCE 09/27/18 12:30 09/27/18 12:31 DC 09/27/18 12:41 2 MG Oxybutynin Chloride (Ditropan) 5 mg 1X ONCE 09/27/18 12:30 09/27/18 12:31 DC 09/27/18 12:34 5 MG Allergies Allergies Allergies Coded Allergies Type Severity Reaction Last Updated Verified morphine Allergy Intermediate Hypoxia, hypotension 07/25/18 Yes shellfish derived Allergy Intermediate 07/23/18 Yes ondansetron Adverse Reaction Severe 07/23/18 Yes metronidazole Adverse Reaction Intermediate Nausea 09/17/18 Yes Physical Exam Physical Exam PHYSICAL EXAM: CONSTITUTIONAL: Well developed, well nourished HEAD: normocephalic, atraumatic EENT: PERRL, EOMI. Conjunctivae normal color, sclerae non-icteric; moist mucous membranes. NECK: Supple, non-tender; no meningismus. LUNGS: Lungs CTA, breathing even and unlabored. Normal air movement. HEART: Regular rate and rhythm, no murmur CHEST: No deformity; non-tender ABDOMEN: The abdomen is soft, there is diffuse pelvic tenderness to palpation, without rebound or guarding, the remainder of the abdomen is soft and non-tende r, no masses or bruits. EXTREM: Normal ROM; no deformity, no calf tenderness. Normal pulses palpable in all extremities. There is bilateral pitting pedal edema. SKIN: No rash; no diaphoresis NEURO: Alert; normal speech and cognition; CN's grossly intact; strength grossly intact without focal deficit. BACK: No CVA TTP. Current Patient Data Vital Signs Vital Signs Date Time Temp Pulse Resp B/P (MAP) Pulse Ox O2 Delivery O2 Flow Rate FiO2 09/27/18 13:26 19 96 Room Air 09/27/18 12:07 98.2 63 130/72 (91) 98.2 Lab Values Laboratory Tests Test 09/27/18 12:27 White Blood Count 5.1 x10^3/uL (4.0-11.0) Red Blood Count 3.04 x10^6/uL (3.50-5.40) L Hemoglobin 8.9 g/dL (12.0-15.5) L Hematocrit 26.8 % (36.0-47.0) L Mean Corpuscular Volume 88 fL (79-100) Mean Corpuscular Hemoglobin 29 pg (25-35) Mean Corpuscular Hemoglobin Concent 33 g/dL (31-37) Red Cell Distribution Width 16.8 % (11.5-14.5) H Platelet Count 209 x10^3/uL (140-400) Neutrophils (%) (Auto) 67 % (31-73) Lymphocytes (%) (Auto) 22 % (24-48) L Monocytes (%) (Auto) 9 % (0-9) Eosinophils (%) (Auto) 2 % (0-3) Basophils (%) (Auto) 0 % (0-3) Neutrophils # (Auto) 3.4 x10^3uL (1.8-7.7) Lymphocytes # (Auto) 1.1 x10^3/uL (1.0-4.8) Monocytes # (Auto) 0.4 x10^3/uL (0.0-1.1) Eosinophils # (Auto) 0.1 x10^3/uL (0.0-0.7) Basophils # (Auto) 0.0 x10^3/uL (0.0-0.2) Urine Collection Type U cath Urine Color Yellow Urine Clarity Cloudy Urine pH 5.5 Urine Specific [place] 1.025 Urine Protein >=300 mg/dL (NEG-TRACE) Urine Glucose (UA) Negative mg/dL (NEG) Urine Ketones (Stick) Negative mg/dL (NEG) Urine Blood Large (NEG) Urine Nitrite Negative (NEG) Urine Bilirubin Negative (NEG) Urine Urobilinogen Dipstick 0.2 mg/dL (0.2 mg/dL) Urine Leukocyte Esterase Negative (NEG) Urine RBC 20-40 /HPF (0-2) Urine WBC 0 /HPF (0-4) Urine Amorphous Sediment Present /HPF Urine Bacteria 0 /HPF (0-FEW) Sodium Level 143 mmol/L (136-145) Potassium Level 3.5 mmol/L (3.5-5.1) Chloride Level 106 mmol/L (98-107) Carbon Dioxide Level 27 mmol/L (21-32) Anion Gap 10 (6-14) Blood Urea Nitrogen 18 mg/dL (7-20) Creatinine 1.4 mg/dL (0.6-1.0) H Estimated GFR (Cockcroft-Gault) 42.1 BUN/Creatinine Ratio 13 (6-20) Glucose Level 126 mg/dL (70-99) H Calcium Level 9.1 mg/dL (8.5-10.1) Total Bilirubin 0.2 mg/dL (0.2-1.0) Aspartate Amino Transferase (AST) 14 U/L (15-37) L Alanine Aminotransferase (ALT) 11 U/L (14-59) L Alkaline Phosphatase 64 U/L (46-116) Total Protein 7.1 g/dL (6.4-8.2) Albumin 2.8 g/dL (3.4-5.0) L Albumin/Globulin Ratio 0.7 (1.0-1.7) L Laboratory Tests 09/27/18 12:27 Laboratory Tests 09/27/18 12:27 EKG EKG [] Radiology/Procedures Radiology/Procedures [] Course & Med Decision Making Course & Med Decision Making Pertinent Labs and recent Imaging studies reviewed. (See chart for details) []The patient's condition remained stable, and she is feeling better at this time. I discussed test results with the patient, the need for close follow-up with her PCP and oncologist, and return precautions. Dragon Disclaimer Dragon Disclaimer This electronic medical record was generated, in whole or in part, using a voice recognition dictation system. Departure Departure Impression: Primary Impression: Primary cervical cancer with metastasis to other site Additional Impression: Pelvic pain Disposition: 01 HOME, SELF-CARE Condition: STABLE Referrals: ALYSSA MARTELL MD (PCP) Problem Qualifiers BETZAIDA ALEJANDRE MD Sep 27, 2018 12:31
[2018-09-27 12:49] LABS: BASO % 0 % (0-3); BILIRUBIN,URINE NEGATIVE (NEG); CLARITY,URINE CLOUDY; COLOR,URINE YELLOW; EOS # 0.1 x10^3/uL (0.0-0.7); EOS % 2 % (0-3); HEMATOCRIT 26.8 % (36.0-47.0); HEMOGLOBIN 8.9 g/dL (12.0-15.5); LYMPH # 1.1 x10^3/uL (1.0-4.8); LYMPH % 22 % (24-48); MEAN CORPUSCULAR HEMOGLOBIN 29 pg (25-35); MEAN CORPUSCULAR HGB CONC 33 g/dL (31-37); MEAN CORPUSCULAR VOLUME 88 fL (79-100); MONO # 0.4 x10^3/uL (0.0-1.1); MONO % 9 % (0-9); NEUT # 3.4 x10^3uL (1.8-7.7); NEUT % 67 % (31-73); NITRITE,URINE NEGATIVE (NEG); PH,URINE 5.5; PLATELET COUNT 209 x10^3/uL (140-400); PROTEIN,URINE >=300 mg/dL (NEG-TRACE); RED BLOOD COUNT 3.04 x10^6/uL (3.50-5.40); RED CELL DISTRIBUTION WIDTH 16.8 % (11.5-14.5); UROBILINOGEN,URINE 0.2 mg/dL (0.2 mg/dL); WHITE BLOOD COUNT 5.1 x10^3/uL (4.0-11.0)
[2018-09-27 12:56] LABS: CALCIUM 9.1 mg/dL (8.5-10.1); CREATININE 1.4 mg/dL (0.6-1.0); GFR 42.1; POTASSIUM 3.5 mmol/L (3.5-5.1)
[2018-09-27 12:59] LABS: AMORPHOUS SEDIMENT,UR PRESENT /HPF; BACTERIA,URINE 0 /HPF (0-FEW); RBC,URINE 20-40 /HPF (0-2); WBC,URINE 0 /HPF (0-4)
[2018-09-27 13:03] LABS: ALBUMIN 2.8 g/dL (3.4-5.0); ALBUMIN/GLOBULIN RATIO 0.7 (1.0-1.7); TOTAL BILIRUBIN 0.2 mg/dL (0.2-1.0); TOTAL PROTEIN 7.1 g/dL (6.4-8.2)
[2018-09-27] MEDS ORDERED: fentaNYL PF VIAL 100 MCG/2 ML VIAL IV ONE (13:30)
[2018-09-27 14:13] VITALS: BP 123/74
[2018-09-27] MEDS ORDERED: HEPARIN PF 500 UNIT/5 ML DISP.SYRIN. IV ONE (14:30)
== END 2018-09-27 14:46 | disposition home or self-care (01) ==
LOC: ER 12:03
DX: G89.29 Other chronic pain (principal); R10.2 Pelvic and perineal pain; C76.0 Malignant neoplasm of head, face and neck; C79.89 Secondary malignant neoplasm of other specified sites; Z90.710 Acquired absence of both cervix and uterus; Z88.5 Allergy status to narcotic agent; Z88.8 Allergy status to other drugs, medicaments and biological substances; Z91.013 Allergy to seafood
CPT/HCPCS: 36415; 80053; 81001; 85025; 96374; 96375; 99284; J1170; J3010

== ENCOUNTER → 2018-10-07 | Day surgery (SDC) | payer OTHER ==
[~2018-10-07] VITALS: Ht 167.6 cm; Wt 95.2 kg
[~2018-10-07] MED LIST changes: +DEXAMETHASONE SOD PHOS 4 MG/ML VIAL ONE; +FAMOTIDINE 20 MG/2 ML VIAL ONE; +HEPARIN PF 500 UNIT/5 ML DISP.SYRIN. IV ONE; +HYDROmorphone 2 MG/ML VIAL IV PRN; +HYDROmorphone 2 MG/ML VIAL ONE; +IV RINGERS,LACTATED 1000ML 1,000 ML IV SCH; +LIDOCAINE 1% PF 2 ML VIAL. ID PRN; +LIDOCAINE 2% PF 5 ML VIAL. ONE; +MIDAZOLAM HCL/PF 2 MG/2 ML VIAL. ONE; +MIRA25TA PO; +MORPHINE SULFATE 2 MG/ML VIAL. IV PRN; +ONDANSETRON PF 4 MG/2 ML VIAL. IV PRN; +OXYC5CAP PO; +PROCHLORPERAZINE 10 MG/2 ML VIAL. IV PRN; +PROPOFOL 20 ML IV ONE; +SEVOFLURANE 31 TO 60 MINUTES. IH ONE; +ceFAZolin 2GM PREMIX 2 GM/50 ML BAG IV ONE; +fentaNYL PF VIAL 100 MCG/2 ML VIAL IV PRN; +fentaNYL PF VIAL 100 MCG/2 ML VIAL ONE; +oxyCODONE IR 5 MG TABLET PO ONE
[2018-10-07] MEDS: fentaNYL PF VIAL 100 MCG/2 ML VIAL IV PRN ×3 (12:43→14:15)
--- NOTE | 2018-10-07 13:50 | PDOC4 ---
OPERATIVE NOTE Date: Date: Oct 07, 2018 Pre-Op Diagnosis: cervical cancer. bladder lesion Post-Op Diagnosis: same Procedure Performed: cystoscopy, bladder biopsy, fulguration Surgeon: Romero Casey Anesthesia Type: general Blood Loss: 0 Specimans Obtained: bladder lesion x 3- floor of bladder Findings: diffuse bullous erythema floor of bladder. unable to locate ureteral orifices Complications: none Operative Note: see dictation ROMERO CASEY MD Oct 07, 2018 13:50
--- NOTE | 2018-10-07 13:52 | DISCH ---
DISCHARGE INSTRUCTIONS Condition on Discharge Condition on Discharge: Stable Activity After Discharge Activity Instructions for Disc: Activity as tolerated Exercise Instruction after Dis: Progress as tolerated Driving Instructions after Dis: Do not drive today Weight Bearing Status after Di: No restrictions, As tolerated Diet after Discharge Diet after Discharge: Regular Diet Texture: Regular Wound Incision Care Wound/Incision Care: May get incision wet Checks after Discharge Checks after discharge: Check blood press - daily, Check your Temp as needed Contacting the DRDane after DC Call your doctor for: Concerns you may have Follow-Up Follow up with: Dr. Casey - 2 weeks ROMERO CASEY MD Oct 07, 2018 13:52
[2018-10-07 14:10] VITALS: BP 131/76
--- NOTE | 2018-10-07 16:20 | OP ---
DATE OF SURGERY: 10/07/2018 SURGEON: Romero Casey MD DIRECTOR OF RETAIL MERCHANDISING: None. PREOPERATIVE DIAGNOSES: Cervical cancer and bladder lesion. POSTOPERATIVE DIAGNOSES: Cervical cancer and bladder lesion. PROCEDURE PERFORMED: Cystoscopy with biopsy of bladder and fulguration. ANESTHESIA TYPE: General. DESCRIPTION OF PROCEDURE: This is a 38-year-old female with a history of cervical cancer, now metastatic, who has had diffuse pain also involving her bladder. Recent cystoscopy showed diffuse erythema of the floor of the bladder. After discussion of risks, benefits and alternatives, she agreed to the above procedure. Informed consent was obtained. The patient was taken to the operating room where general anesthesia was induced. She was placed in dorsal lithotomy position, sterilely prepped and draped. A timeout was performed. A rigid cystoscope was advanced through the urethra and into the bladder. The bladder was inspected with the 30 and 70 degree lens. The floor of the bladder was diffusely abnormal with bullous changes and erythema throughout. Neither ureteral orifice could be identified. The tissue was very friable and bled easily. The remainder of the bladder was normal in appearance. Three biopsies of the abnormal tissue on the floor of the bladder were obtained from the midline and sent as a specimen. These biopsied areas were then fulgurated. Hemostasis was then excellent. The scope was removed. The patient was awakened and taken to the recovery room in stable condition. BLOOD LOSS: None. COMPLICATIONS: None. SPECIMEN: Bladder lesions x 3. ROMERO CASEY MD DR: RAYMOND/kristopher JOB#: [id number] / [id number]
--- NOTE | 2018-10-12 11:07 | PATHOLOGY ---
[facility] Accession Number: [id number] . 01 Material submitted: . bladder - BLADDER LESION . 01 Clinical history: . Cervical cancer. . 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 SEE COMMENT. - Cystitis glandularis. - No bladder lesion seen. (SHA:stacey; 10/08/2018) QMS/10/08/2018 . 02 Comment: History of cervical cancer noted. An immunoperoxidase stain for p16 is positive. . This case is also reviewed by Dr. Socrates Garcia and Dr. Lachelle Kohli. . This case was also discussed with Dr. Brady Smith. . This patient has a history of cervical cancer and this squamous cell carcinoma is likely originating from cervical . Immunoperoxidase stain p16 is also positive which favors cervix. However a primary urothelial squamous cell carcinoma cannot be entirely excluded. Suggest clinical correlation. . Hence the Synoptic below. (SHA:stacey/campus wellness coordinator; 10/08/2018) . URINARY BLADDER: Biopsy and Transurethral Resection of Bladder Tumor (TURBT) . Procedure ___ TURBT . Tumor Site ___ Not specified . Histologic Type Squamous ___ squamous cell carcinoma . Histologic Grade For squamous cell carcinoma or adenocarcinoma ___ G2: Moderately differentiated . + Tumor Configuration + ___ Ulcerated . Muscularis Propria Presence ___ No muscularis propria (detrusor muscle) identified . Lymphovascular Invasion ___ Not identified . Tumor Extension ___ Tumor invades lamina propria (subepithelial connective tissue) . + Additional Pathologic Findings + ___ Cystitis cystica et glandularis . (SHA:campus wellness coordinator; 10/11/2018) . 02 Electronically signed: . Kody Coy MD, Pathologist NPI- [id number] . 01 Gross description: . Received in formalin labeled "Bernal, Marivel, bladder lesion" is a 1.0 x 0.6 x 0.2 cm aggregate of pink-garcia soft tissue fragments. The specimen is submitted entirely in cassette A1. ([place]; 10/07/2018) SYC/SYC . 02 Pathologist provided ICD-10: C67.9, N30.80 . 02 CPT . 877897, T99757 Specimen Comment: A courtesy copy of this report has been sent to Specimen Comment: [phone], . Specimen Comment: Report sent to / DR MARTELL Performed at: 01 [facility] [address] [id number] MD Dell Castaneda MD Phone: [phone] Performed at: 02 [facility] [address] [id number] MD Josué Casillas MD Phone: [phone]
== END ==
LOC: SURG 11:37
PROVIDERS: ATTEND Urology
DX: N32.89 Other specified disorders of bladder (principal); C53.9 Malignant neoplasm of cervix uteri, unspecified; Z90.710 Acquired absence of both cervix and uterus; Z98.890 Other specified postprocedural states; Z88.8 Allergy status to other drugs, medicaments and biological substances; Z88.6 Allergy status to analgesic agent; Z91.013 Allergy to seafood
CPT/HCPCS: 52204; A7015; J0696; J1100; J1170; J2001; J2250; J2704; J3010; J3490; 88307; 88342

== ENCOUNTER 2018-11-13 16:55 | Inpatient (IN) | payer OTHER ==
[~2018-11-13] VITALS: Ht 167.6 cm; Wt 93.9 kg
[~2018-11-13 16:55] MED LIST changes: -DEXAMETHASONE SOD PHOS 4 MG/ML VIAL ONE; -FAMOTIDINE 20 MG/2 ML VIAL ONE; -HEPARIN PF 500 UNIT/5 ML DISP.SYRIN. IV ONE; -HYDROmorphone 2 MG/ML VIAL IV PRN; -HYDROmorphone 2 MG/ML VIAL ONE; -IV RINGERS,LACTATED 1000ML 1,000 ML IV SCH; -LIDOCAINE 1% PF 2 ML VIAL. ID PRN; -LIDOCAINE 2% PF 5 ML VIAL. ONE; -MIDAZOLAM HCL/PF 2 MG/2 ML VIAL. ONE; -MORPHINE SULFATE 2 MG/ML VIAL. IV PRN; -ONDANSETRON PF 4 MG/2 ML VIAL. IV PRN; -PROCHLORPERAZINE 10 MG/2 ML VIAL. IV PRN; -PROPOFOL 20 ML IV ONE; -SEVOFLURANE 31 TO 60 MINUTES. IH ONE; -ceFAZolin 2GM PREMIX 2 GM/50 ML BAG IV ONE; -fentaNYL PF VIAL 100 MCG/2 ML VIAL IV PRN; -fentaNYL PF VIAL 100 MCG/2 ML VIAL ONE; -oxyCODONE IR 5 MG TABLET PO ONE
[2018-11-13] MEDS ORDERED: IV NORMAL SALINE 1000ML BAG 1,000 ML IV ONE (17:30)
[2018-11-13] MEDS ORDERED: fentaNYL PF VIAL 100 MCG/2 ML VIAL IV ONE ×2 (17:30→18:00)
[2018-11-13 17:36] LABS: BILIRUBIN,URINE NEGATIVE (NEG); CLARITY,URINE CLEAR; COLOR,URINE YELLOW; NITRITE,URINE NEGATIVE (NEG); PROTEIN,URINE 30 mg/dL (NEG-TRACE); UROBILINOGEN,URINE 0.2 mg/dL (0.2 mg/dL)
[2018-11-13 17:52] LABS: CALCIUM 9.2 mg/dL (8.5-10.1); CREATININE 1.5 mg/dL (0.6-1.0); GFR 38.9; POTASSIUM 3.6 mmol/L (3.5-5.1)
[2018-11-13 17:53] LABS: BASO % 1 % (0-3); EOS # 0.1 x10^3/uL (0.0-0.7); EOS % 3 % (0-3); LYMPH # 0.8 x10^3/uL (1.0-4.8); LYMPH % 19 % (24-48); MEAN CORPUSCULAR HEMOGLOBIN 27 pg (25-35); MEAN CORPUSCULAR HGB CONC 33 g/dL (31-37); MEAN CORPUSCULAR VOLUME 83 fL (79-100); MONO # 0.5 x10^3/uL (0.0-1.1); MONO % 10 % (0-9); NEUT # 2.9 x10^3/uL (1.8-7.7); NEUT % 67 % (31-73); PLATELET COUNT 303 x10^3/uL (140-400); RED BLOOD COUNT 2.55 x10^6/uL (3.50-5.40); RED CELL DISTRIBUTION WIDTH 17.1 % (11.5-14.5); WHITE BLOOD COUNT 4.4 x10^3/uL (4.0-11.0)
[2018-11-13 17:58] LABS: ALBUMIN 2.5 g/dL (3.4-5.0); ALBUMIN/GLOBULIN RATIO 0.5 (1.0-1.7); MAGNESIUM 1.8 mg/dL (1.8-2.4); TOTAL BILIRUBIN 0.2 mg/dL (0.2-1.0); TOTAL PROTEIN 7.3 g/dL (6.4-8.2)
[2018-11-13 18:02] LABS: SQUAMOUS EPITHELIAL CELL,UR MOD /LPF
[2018-11-13 18:03] LABS: BACTERIA,URINE MODERATE /HPF (0-FEW)
[2018-11-13] MEDS: fentaNYL PF VIAL 100 MCG/2 ML VIAL IV PRN ×4 (19:12→22:21)
--- NOTE | 2018-11-13 19:14 | PHYS DOC ---
Past Medical History Past Medical History: Cancer, Other Additional Past Medical Histor: CERVICAL CANCER (ABEL RODRÍGUEZ APRN) Past Surgical History: Hysterectomy, Other Additional Past Surgical Histo: Port placement, cystoscopy-09/23/18 (ABEL RODRÍGUEZ APRN) Alcohol Use: Rarely Drug Use: None (ABEL RODRÍGUEZ APRN) Adult General Chief Complaint Chief Complaint: WEAKNESS/GENERALIZED HPI HPI Patient is a 38 year old female, accompanied by her family, with complaints of increased weakness, shortness of breath, and back pain for the last 2 days. Pt states she last ate on 11/10/18, she really has not been drinking many fluids either. She is currently on ketruda and scheduled for her next dose on 11/18/18. Pt states she was here last week for a fever but no there was no cause for the fever found. She states that she had a low grade temperature yesterday and denies any fever today. Her pain is a 7/10 on the pain scale, there are no exacerbating or alleviating factors, the pain is constant. ROS Pt denies cough, wheezing, vomiting, or diarrhea. She reports difficulty urinating and nausea. She reports feeling weak all over, she denies any incoordination or headache. (ABEL RODRÍGUEZ APRN) Review of Systems Review of Systems Constitutional: see HPI Eyes: Denies change in visual acuity, redness, or eye pain [] HENT: Denies nasal congestion or sore throat [] Respiratory: Denies cough or shortness of breath [] Cardiovascular: No additional information not addressed in HPI [] GI: See HPI : Denies dysuria or hematuria; see HPI [] Musculoskeletal: See HPI Integument: Denies rash or skin lesions [] Neurologic: Denies headache, focal weakness or sensory changes; see HPI [] Complete systems were reviewed and found to be within normal limits, except as documented in this note. (ABEL RODRÍGUEZ APRN) Current Medications Current Medications Current Medications Medications (Trade) Dose Ordered Sig/Sanna Start Time Stop Time Status Last Admin Dose Admin Fentanyl Citrate (Fentanyl 2ml Vial) 50 mcg 1X ONCE 11/13/18 18:00 11/13/18 18:01 DC 11/13/18 17:59 50 MCG Sodium Chloride 1,000 ml @ 1,000 mls/hr 1X ONCE 11/13/18 17:30 11/13/18 18:29 DC 11/13/18 17:39 1,000 MLS/HR (SURJIT REYES DO) Allergies Allergies Allergies Coded Allergies Type Severity Reaction Last Updated Verified shrimp Allergy Severe mouth sore 10/29/18 Yes ondansetron Adverse Reaction Severe 10/29/18 Yes (SURJIT REYES DO) Physical Exam Physical Exam Constitutional: Well developed, well nourished, no acute distress, ill appearance. [] HENT: Normocephalic, atraumatic, bilateral external ears normal, oropharynx dry, no oral exudates, nose normal; pale lips [] Eyes: PERRLA, no discharge. [] Neck: Normal range of motion, no stridor. [] Cardiovascular:Heart rate regular rhythm Lungs & Thorax: Bilateral breath sounds clear to auscultation [] Abdomen: soft, no pulsatile masses. [] Skin: Warm, dry, no erythema, no rash, generalized pallor. [] Back: CVA tenderness bilat Extremities: No cyanosis, no clubbing, ROM intact, no edema. [] Neurologic: Alert and oriented X 3, no focal deficits noted. [] Psychologic: Affect normal, judgement normal, mood normal. [] (ABEL RODRÍGUEZ APRN) Current Patient Data Vital Signs Vital Signs Date Time Temp Pulse Resp B/P (MAP) Pulse Ox O2 Delivery O2 Flow Rate FiO2 11/13/18 18:36 16 98 Room Air 11/13/18 18:09 73 11/13/18 17:02 98.2 110/57 (74) 98.2 (SURJIT REYES DO) Lab Values Laboratory Tests Test 11/13/18 17:05 11/13/18 17:29 Urine Collection Type Unknown Urine Color Yellow Urine Clarity Clear Urine pH 5.0 Urine Specific [place] 1.015 Urine Protein 30 mg/dL (NEG-TRACE) Urine Glucose (UA) Negative mg/dL (NEG) Urine Ketones (Stick) Negative mg/dL (NEG) Urine Blood Small (NEG) Urine Nitrite Negative (NEG) Urine Bilirubin Negative (NEG) Urine Urobilinogen Dipstick 0.2 mg/dL (0.2 mg/dL) Urine Leukocyte Esterase Trace (NEG) Urine RBC 3-5 /HPF (0-2) Urine WBC 11-20 /HPF (0-4) Urine Squamous Epithelial Cells Mod /LPF Urine Bacteria Moderate /HPF (0-FEW) Urine Mucus Mod /LPF White Blood Count 4.4 x10^3/uL (4.0-11.0) Red Blood Count 2.55 x10^6/uL (3.50-5.40) L Hemoglobin 7.0 g/dL (12.0-15.5) *L Hematocrit 21.0 % (36.0-47.0) *L Mean Corpuscular Volume 83 fL (79-100) Mean Corpuscular Hemoglobin 27 pg (25-35) Mean Corpuscular Hemoglobin Concent 33 g/dL (31-37) Red Cell Distribution Width 17.1 % (11.5-14.5) H Platelet Count 303 x10^3/uL (140-400) Neutrophils (%) (Auto) 67 % (31-73) Lymphocytes (%) (Auto) 19 % (24-48) L Monocytes (%) (Auto) 10 % (0-9) H Eosinophils (%) (Auto) 3 % (0-3) Basophils (%) (Auto) 1 % (0-3) Neutrophils # (Auto) 2.9 x10^3/uL (1.8-7.7) Lymphocytes # (Auto) 0.8 x10^3/uL (1.0-4.8) L Monocytes # (Auto) 0.5 x10^3/uL (0.0-1.1) Eosinophils # (Auto) 0.1 x10^3/uL (0.0-0.7) Basophils # (Auto) 0.0 x10^3/uL (0.0-0.2) Prothrombin Time 14.1 SEC (11.7-14.0) H Prothrombin Time INR 1.1 (0.8-1.1) Sodium Level 143 mmol/L (136-145) Potassium Level 3.6 mmol/L (3.5-5.1) Chloride Level 106 mmol/L (98-107) Carbon Dioxide Level 25 mmol/L (21-32) Anion Gap 12 (6-14) Blood Urea Nitrogen 13 mg/dL (7-20) Creatinine 1.5 mg/dL (0.6-1.0) H Estimated GFR (Cockcroft-Gault) 38.9 BUN/Creatinine Ratio 9 (6-20) Glucose Level 83 mg/dL (70-99) Lactic Acid Level 0.8 mmol/L (0.4-2.0) Calcium Level 9.2 mg/dL (8.5-10.1) Magnesium Level 1.8 mg/dL (1.8-2.4) Total Bilirubin 0.2 mg/dL (0.2-1.0) Aspartate Amino Transferase (AST) 16 U/L (15-37) Alanine Aminotransferase (ALT) 11 U/L (14-59) L Alkaline Phosphatase 63 U/L (46-116) Total Protein 7.3 g/dL (6.4-8.2) Albumin 2.5 g/dL (3.4-5.0) L Albumin/Globulin Ratio 0.5 (1.0-1.7) L Laboratory Tests 11/13/18 17:29 Laboratory Tests 11/13/18 17:29 (SURJIT REYES DO) EKG EKG [] (ABEL RODRÍGUEZ APRN) Radiology/Procedures Radiology/Procedures [] (ABEL RODRÍGUEZ APRN) Course & Med Decision Making Course & Med Decision Making Pertinent Labs and Imaging studies reviewed. (See chart for details) Dx: UTI, weakness, anemia CBC: WBC 4.4, RBC 2.55, Hgb 7.0, Hct 21.0; PT/INR unremarkable, CMP: Drafting Detailer 1.5, lactic acid 0.8 otherwise unremarkable; UA 11-20 WBC, 3-5 RBCs, moderate bacteria 1852- Spoke with Dr. Orestes Stern he recommends patient have blood transfusion of PRBCs 1904-Spoke with Dr. Lopez who will admit patient for weakness, UTI, and anemia. Advised 1L NS and 1 gm rocephin was given in ER. PT was also given fentanyl for pain control. Occult stool testing is pending stool collection. [] (ABEL RODRÍGUEZ APRN) Dragon Disclaimer Dragon Disclaimer This electronic medical record was generated, in whole or in part, using a voice recognition dictation system. (ABEL RODRÍGUEZ APRN) Departure Departure Impression: Primary Impression: Weakness Additional Impressions: UTI (urinary tract infection) Anemia Disposition: 09 ADMITTED INPATIENT Admitting Physician: Surjit Lopez (ABEL RODRÍGUEZ APRN) Condition: STABLE Referrals: ALYSSA MARTELL MD (PCP) Attending Signature Attending Signature I have reviewed the PA/MANAGER OF DISTRIBUTION's note and plan of care. I was available for consultation as needed during the patient's visit in the emergency department. I agree with the clinical impression, plan, and disposition. (SURJIT REYES DO) Problem Qualifiers Additional Impressions: UTI (urinary tract infection) Urinary tract infection type: site unspecified Hematuria presence: with he maturia Qualified Codes: N39.0 - Urinary tract infection, site not specified; R31.9 - Hematuria, unspecified Anemia Anemia type: unspecified type Qualified Codes: D64.9 - Anemia, unspecified ABEL RODRÍGUEZ APRN Nov 13, 2018 19:14 SURJIT REYES DO Nov 14, 2018 01:25
[2018-11-13] MEDS ORDERED: cefTRIAXone IV Push 1 GM VIAL. IVP ONE (19:15)
[2018-11-13 19:16] LABS: PROTHROMBIN TIME PATIENT 14.1 SEC (11.7-14.0)
--- NOTE | 2018-11-13 20:00 | NUR ---
The patient, AAMIR METCALF, 38 y/o, F admitted by WINNIE LOPEZ MD, was given written information regarding hospital policies, unit procedures and contact persons. Valuables were checked and all questions answered. Will notify Dr. Lopez to get home meds restarted.
[2018-11-13] MEDS ORDERED: CYCLOBENZAPRINE 10 MG TABLET. PO PRN (20:45)
[2018-11-13] MEDS ORDERED: PROMETHAZINE 12.5 MG SUPP.RECT. RC PRN (20:45)
[2018-11-13] MEDS ORDERED: PROCHLORPERAZINE 10 MG/2 ML VIAL. IV PRN (21:00)
[2018-11-13] MEDS ORDERED: ACETAMINOPHEN 325 MG TABLET. PO PRN (21:00)
[2018-11-13] MEDS ORDERED: oxyCODONE IR 5 MG TABLET PO PRN ×4 (21:00→21:15)
[2018-11-13] MEDS: oxyCODONE ER 10 MG TAB.ER.12H PO SCH (21:20)
[2018-11-13] MEDS: ZOLPIDEM 5 MG TABLET. PO SCH (21:20)
[2018-11-13] MEDS: GABAPENTIN 300 MG CAPSULE. PO SCH (21:20)
[2018-11-13] MEDS: oxyCODONE IR 5 MG TABLET PO PRN (21:20)
[2018-11-13 21:55] VITALS: BP 124/73
[2018-11-13 22:10] VITALS: BP 123/72
[2018-11-13 23:09] VITALS: BP 119/68
[2018-11-14] VITALS (8 sets, daily range): BP systolic 107–125; BP diastolic 51–76
--- NOTE | 2018-11-14 00:20 | NUR ---
A unit of PRBC's complete. Denies any signs or symptoms of a reaction. VSS.
[2018-11-14] MEDS: fentaNYL PF VIAL 100 MCG/2 ML VIAL IV PRN ×12 (00:23→22:25)
[2018-11-14] MEDS: oxyCODONE IR 5 MG TABLET PO PRN ×6 (00:27→22:57)
[2018-11-14] MEDS: PANTOPRAZOLE 40 MG TABLET.DR. PO SCH (07:58)
[2018-11-14] MEDS: GABAPENTIN 300 MG CAPSULE. PO SCH ×2 (09:45→20:19)
--- NOTE | 2018-11-14 09:46 | HP ---
ADMIT DATE: CHIEF COMPLAINT: Fatigue. SIGNIFICANT COMPLAINT: Abdominal pain. HISTORY OF PRESENT ILLNESS AND HOSPITAL COURSE: This patient is a 38-year-old female with known history of metastatic cervical cancer, came to the hospital with increasing fatigue and abdominal pain with some associated shortness of breath and back pain. This has been going on for 48 hours. She had limited p.o. intake and is in the middle of chemotherapy treatments with her next dose of chemo 11/18/2018. She was found to have trace leukocytes in her urine, but more significantly it was found to be significantly anemic with hemoglobin of 7. Last hemoglobin approximately 8 days ago was 7.7, baseline hemoglobin was around 9. Due to these findings, the patient was admitted for further evaluation. Heme/Oncology was consulted and blood transfusion was ordered. The patient was admitted for further evaluation and was treated with antibiotics for UTI. 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 PAST SURGICAL HISTORY: Significant for complete vaginal hysterectomy with bilateral oophorectomy. FAMILY HISTORY: Significant for mother who is alive without medical issues and father who is alive with type 2 diabetes and hypertension. Grandmother with a history of uterine cancer. SOCIAL HISTORY: The patient is a former smoker. She has not smoked in over 1 year. She does not use alcohol significantly. The patient lives at home with her partner and 3 children. 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 ALLERGIES: The patient has no known drug allergies. REVIEW OF SYSTEMS: The patient was doing well until about 48 hours ago when she began having increasing weakness, fatigue and abdominal pain as well as some shortness of breath. She denies any diarrhea. She has had some blood streaks in her stools, but no overt melena. She has not had cough or congestion. PHYSICAL EXAMINATION: GENERAL: This is a well-nourished, well-developed female, in no apparent distress on my exam. She is alert and oriented x 3. HEENT: Benign. NECK: Supple. CARDIAC: Regular rate and rhythm. LUNGS: Clear. Infusaport was accessed. ABDOMEN: Soft, nontender, without masses. Positive bowel sounds. EXTREMITIES: Have 2+ pulses without edema. NEUROLOGIC: Showed no unilateral findings. LABORATORY DATA: The patient's creatinine was lower than baseline. Create baseline with a baseline creatinine of 1.4 now at 1.5. Last creatinine was at 1.8 up to 2.1 in the last several months. ASSESSMENT: 1. Fatigue. 2. Symptomatic anemia. 3. Cervical cancer, undergoing chemo. 4. Urinary tract infection. PLAN: To proceed with antibiotics and transfusion. Have Heme/Oncology evaluation proceed. Consider GI workup if progressive anemia or further GI bleeding is noted. WINNIE VAZ MD DR: SHOAIB/kristopher JOB#: [id number] / [id number]
[2018-11-14] MEDS: oxyCODONE ER 10 MG TAB.ER.12H PO SCH ×2 (09:47→20:20)
[2018-11-14] MEDS: LISINOPRIL 10 MG TABLET PO SCH (09:54)
[2018-11-14 10:10] LABS: BASO % 1 % (0-3); EOS # 0.1 x10^3/uL (0.0-0.7); EOS % 4 % (0-3); HEMATOCRIT 25.6 % (36.0-47.0); HEMOGLOBIN 8.8 g/dL (12.0-15.5); LYMPH # 0.6 x10^3/uL (1.0-4.8); LYMPH % 16 % (24-48); MEAN CORPUSCULAR HEMOGLOBIN 28 pg (25-35); MEAN CORPUSCULAR HGB CONC 34 g/dL (31-37); MEAN CORPUSCULAR VOLUME 82 fL (79-100); MONO # 0.4 x10^3/uL (0.0-1.1); MONO % 11 % (0-9); NEUT # 2.6 x10^3/uL (1.8-7.7); NEUT % 68 % (31-73); PLATELET COUNT 269 x10^3/uL (140-400); RED BLOOD COUNT 3.13 x10^6/uL (3.50-5.40); RED CELL DISTRIBUTION WIDTH 16.6 % (11.5-14.5); WHITE BLOOD COUNT 3.8 x10^3/uL (4.0-11.0)
[2018-11-14 10:29] LABS: CALCIUM 8.4 mg/dL (8.5-10.1); CREATININE 1.4 mg/dL (0.6-1.0); GFR 42.1; POTASSIUM 3.8 mmol/L (3.5-5.1)
[2018-11-14] MEDS ORDERED: cefTRIAXone IV Push 1 GM VIAL. IVP SCH (19:00)
[2018-11-14] MEDS: ZOLPIDEM 5 MG TABLET. PO SCH (20:20)
[2018-11-14 21:10] LABS: FECAL OB PT POSITIVE (NEG)
[2018-11-15] MEDS: fentaNYL PF VIAL 100 MCG/2 ML VIAL IV PRN ×12 (00:21→23:07)
[2018-11-15] MEDS: oxyCODONE IR 5 MG TABLET PO PRN ×5 (02:24→16:43)
[2018-11-15 02:41] VITALS: BP 110/62
[2018-11-15] MEDS: PANTOPRAZOLE 40 MG TABLET.DR. PO SCH (06:15)
[2018-11-15 07:00] VITALS: BP 109/53
[2018-11-15 07:00] LABS: ALBUMIN 2.4 g/dL (3.4-5.0); ALBUMIN/GLOBULIN RATIO 0.5 (1.0-1.7); CALCIUM 8.6 mg/dL (8.5-10.1); CREATININE 1.5 mg/dL (0.6-1.0); GFR 38.9; POTASSIUM 3.6 mmol/L (3.5-5.1); TOTAL BILIRUBIN 0.2 mg/dL (0.2-1.0); TOTAL PROTEIN 7.1 g/dL (6.4-8.2)
[2018-11-15 07:13] LABS: BASO % 1 % (0-3); EOS # 0.2 x10^3/uL (0.0-0.7); EOS % 4 % (0-3); HEMATOCRIT 24.8 % (36.0-47.0); HEMOGLOBIN 8.3 g/dL (12.0-15.5); LYMPH # 0.8 x10^3/uL (1.0-4.8); LYMPH % 17 % (24-48); MEAN CORPUSCULAR HEMOGLOBIN 28 pg (25-35); MEAN CORPUSCULAR HGB CONC 33 g/dL (31-37); MEAN CORPUSCULAR VOLUME 83 fL (79-100); MONO # 0.5 x10^3/uL (0.0-1.1); MONO % 11 % (0-9); NEUT # 3.2 x10^3/uL (1.8-7.7); NEUT % 69 % (31-73); PLATELET COUNT 274 x10^3/uL (140-400); RED BLOOD COUNT 2.98 x10^6/uL (3.50-5.40); RED CELL DISTRIBUTION WIDTH 16.8 % (11.5-14.5); WHITE BLOOD COUNT 4.7 x10^3/uL (4.0-11.0)
--- NOTE | 2018-11-15 07:59 | PDOC ---
PROGRESS NOTES Subjective Subjective Patient reports she feels much better than at admission. Objective Objective Vital Signs Date Time Temp Pulse Resp B/P (MAP) Pulse Ox O2 Delivery O2 Flow Rate FiO2 11/15/18 06:16 18 96 Room Air 11/15/18 02:41 98.4 76 110/62 (78) 98.4 Intake and Output 11/15/18 06:59 Intake Total 360 ml Output Total 200 ml Balance 160 ml Intake Oral 360 ml Output Urine Total 200 ml # Voids 6 # Bowel Movements 1 Physical Exam Abdomen: Normal bowel sounds, Soft, No tenderness Heart: Regular rate Extremities: No edema General: Alert, Oriented X3, No acute distress Lungs: Clear to auscultation Assessment Assessment Problems Medical Problems: (1) Anemia Status: Acute (2) Weakness Status: Acute Plan Plan of Care 1. Weakness and anemia - lab improved after transfusion of 1 unit PRBC's. 2. possible UTI - culture pending. Will change abx to Levaquin as patient's last UTI was Enterococcus. 3. metastatic cervical cancer - presently stable. Now on Keytruda for tx. Continue tx per Oncology. Chronic pain about the same. Patient advised more po pain meds today and less IV so that she will be ready for discharge tomorrow. 4. HTN - controlled, continue Lisinopril. 5. renal insufficiency - patient's creatinine has been elevated on recent hospitalizations but is presently stable. CT in August showed bilateral hydronephrosis, presumably from progression of disease in the pelvis. Comment Review of Relevant I have reviewed the following items heather (where applicable) has been applied. Labs Laboratory Tests Test 11/13/18 17:05 11/13/18 17:29 11/14/18 09:45 11/14/18 20:00 Urine Collection Type Unknown Urine Color Yellow Urine Clarity Clear Urine pH 5.0 Urine Specific [place] 1.015 Urine Protein 30 mg/dL (NEG-TRACE) Urine Glucose (UA) Negative mg/dL (NEG) Urine Ketones (Stick) Negative mg/dL (NEG) Urine Blood Small (NEG) Urine Nitrite Negative (NEG) Urine Bilirubin Negative (NEG) Urine Urobilinogen Dipstick 0.2 mg/dL (0.2 mg/dL) Urine Leukocyte Esterase Trace (NEG) Urine RBC 3-5 /HPF (0-2) Urine WBC 11-20 /HPF (0-4) Urine Squamous Epithelial Cells Mod /LPF Urine Bacteria Moderate /HPF (0-FEW) Urine Mucus Mod /LPF White Blood Count 4.4 x10^3/uL (4.0-11.0) 3.8 x10^3/uL (4.0-11.0) Red Blood Count 2.55 x10^6/uL (3.50-5.40) 3.13 x10^6/uL (3.50-5.40) Hemoglobin 7.0 g/dL (12.0-15.5) 8.8 g/dL (12.0-15.5) Hematocrit 21.0 % (36.0-47.0) 25.6 % (36.0-47.0) Mean Corpuscular Volume 83 fL (79-100) 82 fL (79-100) Mean Corpuscular Hemoglobin 27 pg (25-35) 28 pg (25-35) Mean Corpuscular Hemoglobin Concent 33 g/dL (31-37) 34 g/dL (31-37) Red Cell Distribution Width 17.1 % (11.5-14.5) 16.6 % (11.5-14.5) Platelet Count 303 x10^3/uL (140-400) 269 x10^3/uL (140-400) Neutrophils (%) (Auto) 67 % (31-73) 68 % (31-73) Lymphocytes (%) (Auto) 19 % (24-48) 16 % (24-48) Monocytes (%) (Auto) 10 % (0-9) 11 % (0-9) Eosinophils (%) (Auto) 3 % (0-3) 4 % (0-3) Basophils (%) (Auto) 1 % (0-3) 1 % (0-3) Neutrophils # (Auto) 2.9 x10^3/uL (1.8-7.7) 2.6 x10^3/uL (1.8-7.7) Lymphocytes # (Auto) 0.8 x10^3/uL (1.0-4.8) 0.6 x10^3/uL (1.0-4.8) Monocytes # (Auto) 0.5 x10^3/uL (0.0-1.1) 0.4 x10^3/uL (0.0-1.1) Eosinophils # (Auto) 0.1 x10^3/uL (0.0-0.7) 0.1 x10^3/uL (0.0-0.7) Basophils # (Auto) 0.0 x10^3/uL (0.0-0.2) 0.0 x10^3/uL (0.0-0.2) Prothrombin Time 14.1 SEC (11.7-14.0) Prothromb Time International Ratio 1.1 (0.8-1.1) Sodium Level 143 mmol/L (136-145) 143 mmol/L (136-145) Potassium Level 3.6 mmol/L (3.5-5.1) 3.8 mmol/L (3.5-5.1) Chloride Level 106 mmol/L (98-107) 107 mmol/L (98-107) Carbon Dioxide Level 25 mmol/L (21-32) 25 mmol/L (21-32) Anion Gap 12 (6-14) 11 (6-14) Blood Urea Nitrogen 13 mg/dL (7-20) 12 mg/dL (7-20) Creatinine 1.5 mg/dL (0.6-1.0) 1.4 mg/dL (0.6-1.0) Estimated GFR (Cockcroft-Gault) 38.9 42.1 BUN/Creatinine Ratio 9 (6-20) Glucose Level 83 mg/dL (70-99) 88 mg/dL (70-99) Lactic Acid Level 0.8 mmol/L (0.4-2.0) Calcium Level 9.2 mg/dL (8.5-10.1) 8.4 mg/dL (8.5-10.1) Magnesium Level 1.8 mg/dL (1.8-2.4) Total Bilirubin 0.2 mg/dL (0.2-1.0) Aspartate Amino Transf (AST/SGOT) 16 U/L (15-37) Alanine Aminotransferase (ALT/SGPT) 11 U/L (14-59) Alkaline Phosphatase 63 U/L (46-116) Total Protein 7.3 g/dL (6.4-8.2) Albumin 2.5 g/dL (3.4-5.0) Albumin/Globulin Ratio 0.5 (1.0-1.7) Stool Occult Blood Positive (NEG) Test 11/15/18 06:25 White Blood Count 4.7 x10^3/uL (4.0-11.0) Red Blood Count 2.98 x10^6/uL (3.50-5.40) Hemoglobin 8.3 g/dL (12.0-15.5) Hematocrit 24.8 % (36.0-47.0) Mean Corpuscular Volume 83 fL (79-100) Mean Corpuscular Hemoglobin 28 pg (25-35) Mean Corpuscular Hemoglobin Concent 33 g/dL (31-37) Red Cell Distribution Width 16.8 % (11.5-14.5) Platelet Count 274 x10^3/uL (140-400) Neutrophils (%) (Auto) 69 % (31-73) Lymphocytes (%) (Auto) 17 % (24-48) Monocytes (%) (Auto) 11 % (0-9) Eosinophils (%) (Auto) 4 % (0-3) Basophils (%) (Auto) 1 % (0-3) Neutrophils # (Auto) 3.2 x10^3/uL (1.8-7.7) Lymphocytes # (Auto) 0.8 x10^3/uL (1.0-4.8) Monocytes # (Auto) 0.5 x10^3/uL (0.0-1.1) Eosinophils # (Auto) 0.2 x10^3/uL (0.0-0.7) Basophils # (Auto) 0.0 x10^3/uL (0.0-0.2) Sodium Level 139 mmol/L (136-145) Potassium Level 3.6 mmol/L (3.5-5.1) Chloride Level 102 mmol/L (98-107) Carbon Dioxide Level 26 mmol/L (21-32) Anion Gap 11 (6-14) Blood Urea Nitrogen 14 mg/dL (7-20) Creatinine 1.5 mg/dL (0.6-1.0) Estimated GFR (Cockcroft-Gault) 38.9 BUN/Creatinine Ratio 9 (6-20) Glucose Level 110 mg/dL (70-99) Calcium Level 8.6 mg/dL (8.5-10.1) Total Bilirubin 0.2 mg/dL (0.2-1.0) Aspartate Amino Transf (AST/SGOT) 15 U/L (15-37) Alanine Aminotransferase (ALT/SGPT) 7 U/L (14-59) Alkaline Phosphatase 62 U/L (46-116) Total Protein 7.1 g/dL (6.4-8.2) Albumin 2.4 g/dL (3.4-5.0) Albumin/Globulin Ratio 0.5 (1.0-1.7) Laboratory Tests Test 11/14/18 09:45 11/14/18 20:00 11/15/18 06:25 White Blood Count 3.8 x10^3/uL (4.0-11.0) 4.7 x10^3/uL (4.0-11.0) Red Blood Count 3.13 x10^6/uL (3.50-5.40) 2.98 x10^6/uL (3.50-5.40) Hemoglobin 8.8 g/dL (12.0-15.5) 8.3 g/dL (12.0-15.5) Hematocrit 25.6 % (36.0-47.0) 24.8 % (36.0-47.0) Mean Corpuscular Volume 82 fL (79-100) 83 fL (79-100) Mean Corpuscular Hemoglobin 28 pg (25-35) 28 pg (25-35) Mean Corpuscular Hemoglobin Concent 34 g/dL (31-37) 33 g/dL (31-37) Red Cell Distribution Width 16.6 % (11.5-14.5) 16.8 % (11.5-14.5) Platelet Count 269 x10^3/uL (140-400) 274 x10^3/uL (140-400) Neutrophils (%) (Auto) 68 % (31-73) 69 % (31-73) Lymphocytes (%) (Auto) 16 % (24-48) 17 % (24-48) Monocytes (%) (Auto) 11 % (0-9) 11 % (0-9) Eosinophils (%) (Auto) 4 % (0-3) 4 % (0-3) Basophils (%) (Auto) 1 % (0-3) 1 % (0-3) Neutrophils # (Auto) 2.6 x10^3/uL (1.8-7.7) 3.2 x10^3/uL (1.8-7.7) Lymphocytes # (Auto) 0.6 x10^3/uL (1.0-4.8) 0.8 x10^3/uL (1.0-4.8) Monocytes # (Auto) 0.4 x10^3/uL (0.0-1.1) 0.5 x10^3/uL (0.0-1.1) Eosinophils # (Auto) 0.1 x10^3/uL (0.0-0.7) 0.2 x10^3/uL (0.0-0.7) Basophils # (Auto) 0.0 x10^3/uL (0.0-0.2) 0.0 x10^3/uL (0.0-0.2) Sodium Level 143 mmol/L (136-145) 139 mmol/L (136-145) Potassium Level 3.8 mmol/L (3.5-5.1) 3.6 mmol/L (3.5-5.1) Chloride Level 107 mmol/L (98-107) 102 mmol/L (98-107) Carbon Dioxide Level 25 mmol/L (21-32) 26 mmol/L (21-32) Anion Gap 11 (6-14) 11 (6-14) Blood Urea Nitrogen 12 mg/dL (7-20) 14 mg/dL (7-20) Creatinine 1.4 mg/dL (0.6-1.0) 1.5 mg/dL (0.6-1.0) Estimated GFR (Cockcroft-Gault) 42.1 38.9 Glucose Level 88 mg/dL (70-99) 110 mg/dL (70-99) Calcium Level 8.4 mg/dL (8.5-10.1) 8.6 mg/dL (8.5-10.1) Stool Occult Blood Positive (NEG) BUN/Creatinine Ratio 9 (6-20) Total Bilirubin 0.2 mg/dL (0.2-1.0) Aspartate Amino Transf (AST/SGOT) 15 U/L (15-37) Alanine Aminotransferase (ALT/SGPT) 7 U/L (14-59) Alkaline Phosphatase 62 U/L (46-116) Total Protein 7.1 g/dL (6.4-8.2) Albumin 2.4 g/dL (3.4-5.0) Albumin/Globulin Ratio 0.5 (1.0-1.7) Microbiology 11/13/18 Blood Culture - Preliminary, Resulted NO GROWTH AFTER 1 DAY Medications Current Medications Fentanyl Citrate (Fentanyl 2ml Vial) 50 mcg 1X ONCE IV Last administered on 11/13/18at 17:39; Start 11/13/18 at 17:30; Stop 11/13/18 at 17:31; Status DC Sodium Chloride 1,000 ml @ 1,000 mls/hr 1X ONCE IV Last administered on 11/13/18at 17:39; Start 11/13/18 at 17:30; Stop 11/13/18 at 18:29; Status DC Fentanyl Citrate (Fentanyl 2ml Vial) 50 mcg PRN Q2HRS PRN IV pain Last administered on 11/13/18at 19:12; Start 11/13/18 at 18:00 Fentanyl Citrate (Fentanyl 2ml Vial) 50 mcg 1X ONCE IV Last administered on 11/13/18at 17:59; Start 11/13/18 at 18:00; Stop 11/13/18 at 18:01; Status DC Ceftriaxone Sodium (Rocephin) 1 gm 1X ONCE IVP Last administered on 11/13/18at 19:12; Start 11/13/18 at 19:15; Stop 11/13/18 at 19:16; Status DC Fentanyl Citrate (Fentanyl 2ml Vial) 50 mcg PRN Q1HR PRN IV PAIN Last administered on 11/14/18at 18:06; Start 11/13/18 at 19:15; Stop 11/14/18 at 19:14; Status DC Cyclobenzaprine HCl (Flexeril) 10 mg TID PRN PRN PO back pain Last administered on 11/14/18at 22:57; Start 11/13/18 at 20:45 Lisinopril (Prinivil) 10 mg DAILY PO Last administered on 11/14/18at 09:54; Start 11/14/18 at 09:00 Promethazine HCl (Phenergan Supp) 12.5 mg PRN Q6HRS PRN RC NAUSEA; Start 11/13/18 at 20:45 Zolpidem Tartrate (Ambien) 5 mg QHS PO Last administered on 11/14/18 20:20; Start 11/13/18 at 21:00 Gabapentin (Neurontin) 600 mg BID PO Last administered on 11/14/18 20:20; Start 11/13/18 at 21:00 Pantoprazole Sodium (Protonix) 40 mg DAILYAC PO Last administered on 11/15/18at 06:15; Start 11/14/18 at 07:30 Oxycodone HCl (Roxicodone) 5 mg PRN Q3HRS PRN PO MODERATE PAIN 4-6; Start 11/13/18 at 21:00 Oxycodone HCl (OxyCONTIN) 20 mg Q12HR PO Last administered on 11/14/18at 20:20; Start 11/13/18 at 21:00 Oxycodone HCl (Roxicodone) 10 mg PRN Q3HRS PRN PO PAIN; Start 11/13/18 at 21:00; Status UNV Oxycodone HCl (Roxicodone) 15 mg PRN Q3HRS PRN PO PAIN; Start 11/13/18 at 21:00; Status UNV Acetaminophen (Tylenol) 650 mg PRN Q6HRS PRN PO MILD PAIN / TEMP; Start 11/13/18 at 21:00 Prochlorperazine Edisylate (Compazine) 10 mg PRN Q6HRS PRN IV NAUSEA/VOMITING 1ST CHOICE; Start 11/13/18 at 21:00 Oxycodone HCl (Roxicodone) 10 mg PRN Q3HRS PRN PO MODERATE PAIN 4-6; Start 11/13/18 at 21:15 Oxycodone HCl (Roxicodone) 15 mg PRN Q3HRS PRN PO SEVERE PAIN 7-10 Last administered on 11/15/18at 06:15; Start 11/13/18 at 21:15 Fentanyl Citrate (Fentanyl 2ml Vial) 50 mcg PRN Q1HR PRN IV SEVERE PAIN 7-10 Last administered on 11/15/18at 06:16; Start 11/13/18 at 22:00 Ceftriaxone Sodium (Rocephin) 1 gm Q24H IVP Last administered on 11/14/18at 20:12; Start 11/14/18 at 19:00 Active Scripts Active Reported Oxycontin (Oxycodone HCl) 20 Mg Tab.er.12h 20 Mg PO Q12HR Oxycodone Hcl 5 Mg Capsule 1-3 Tab PO PRN Q3HRS PRN Lisinopril 20 Mg Tablet 10 Mg PO DAILY Gabapentin 600 Mg Tablet 600 Mg PO BID Prevacid (Lansoprazole) 30 Mg Capsule.dr 30 Mg PO DAILY Cyclobenzaprine Hcl 10 Mg Tablet 10 Mg PO PRN PRN Phenergan (Promethazine HCl) 12.5 Mg Supp.rect 12.5 Mg RC PRN PRN Ambien (Zolpidem Tartrate) 5 Mg Tablet 1 Tab PO QHS Vitals/I & O Vital Sign - Last 24 Hours 11/14/18 11/14/18 11/14/18 11/14/18 07:59 09:48 09:48 09:54 Pulse 73 Resp 16 22 22 B/P (MAP) 107/65 O2 Delivery Room Air 11/14/18 11/14/18 11/14/18 11/14/18 11:00 11:05 11:26 11:26 Temp 98.4 98.4 Pulse 70 Resp 16 22 18 B/P (MAP) 111/66 (81) Pulse Ox 94 O2 Delivery Room Air Room Air Room Air Room Air 11/14/18 11/14/18 11/14/18 11/14/18 13:37 13:37 13:57 14:00 Resp 18 18 26 22 O2 Delivery Room Air Room Air Room Air Room Air 11/14/18 11/14/18 11/14/18 11/14/18 14:46 15:00 15:29 15:29 Temp 98.0 98.0 Pulse 72 Resp 16 26 B/P (MAP) 118/68 (85) Pulse Ox 96 O2 Delivery Room Air Room Air Room Air 11/14/18 11/14/18 11/14/18 11/14/18 16:18 18:06 18:10 18:46 Resp 24 26 20 20 O2 Delivery Room Air Room Air Room Air 11/14/18 11/14/18 11/14/18 11/14/18 19:00 19:31 20:00 20:08 Temp 98.1 98.1 Pulse 76 Resp 20 18 18 B/P (MAP) 107/64 (78) Pulse Ox 97 97 97 O2 Delivery Room Air Room Air Room Air Room Air 11/14/18 11/14/18 11/14/18 11/14/18 20:20 20:36 20:36 21:24 Resp 18 18 18 18 Pulse Ox 97 97 97 97 O2 Delivery Room Air Room Air Room Air Room Air 11/14/18 11/14/18 11/14/18 11/14/18 22:01 22:25 22:57 22:57 Resp 18 18 18 18 Pulse Ox 97 97 97 97 O2 Delivery Room Air Room Air Room Air Room Air 11/14/18 11/15/18 11/15/18 11/15/18 23:01 00:20 00:20 00:21 Temp 98.3 98.3 Pulse 66 Resp 18 18 18 18 B/P (MAP) 113/63 (80) Pulse Ox 95 95 95 95 O2 Delivery Room Air Room Air Room Air Room Air 11/15/18 11/15/18 11/15/18 11/15/18 02:25 02:25 02:41 03:11 Temp 98.4 98.4 Pulse 76 Resp 18 18 B/P (MAP) 110/62 (78) Pulse Ox 95 95 96 96 O2 Delivery Room Air Room Air Room Air Room Air 11/15/18 11/15/18 11/15/18 11/15/18 03:35 03:49 04:19 06:15 Resp 18 18 18 Pulse Ox 96 96 96 O2 Delivery Room Air Room Air Room Air 11/15/18 06:16 Resp 18 Pulse Ox 96 O2 Delivery Room Air Intake and Output 11/14/18 11/14/18 11/15/18 14:59 22:59 06:59 Intake Total 360 ml Output Total 200 ml Balance -200 ml 360 ml ALYSSA MARTELL MD Nov 15, 2018 07:59
--- NOTE | 2018-11-15 08:04 | PDOC2 ---
CONSULT Date of Consult Date of Consult DATE: 11/15/18 TIME: 08:01 Reason for consultation: UTI with cervical cancer Consult: Hematology oncology, Dr. Power Raines History of present illness: Marivel is a 38-year-old female, who came in after noting fever, weakness, blood in her stool passing clots, and her usual dysuria and bladder cramping, she had anemia and hemoglobin was 7.0 on admission, improved to currently 8.3 after 1 unit transfusion and her dyspnea is better. Regarding her weakness, it was acute, severe, associated with fever, worsened d ue to anemia, and has improved slightly as she is being treated for possible UTI and w/ transfusion. She is due for cycle 3 of Pembrolizumab which is immunotherapy for her metastatic cervical cancer, later this week. 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 Physical exam: Vitals reviewed Gen.: Well-nourished and well-developed in no acute distress HEENT: mucous membranes moist, head normocephalic atraumatic Neck: Supple, LAD > at L supraclav, seems improved slightly Lungs: Breathing comfortably w/o respiratory distress Abdomen: Soft, nd, ttp diffuse w/ mild guarding, no rebound Extremities: No cyanosis, does have LE edema mild Skin: No obvious rashes or skin breakdown Neuro: Alert and oriented �3 Psych: Normal mood and affect Lab reviewed: blood Culture �2 negative, fecal occult blood test positive, UA with bacteria, RBCs, LE, white blood cells, and blood White blood cells and platelet normal with hemoglobin from 7.0 up to 8.3 INR of 1.1 Rads reviewed: CT abdomen and pelvis 09/16/18, with no change in retroperitoneal and iliac adenopathy, unchanged presacral fat induration and perirectal fat induration, mild bladder wall thickening suggests cystitis CXR 05 Nov 2018: no acute process Case discussed with: Patient, records reviewed in [facility] and [facility], including labs and radiology, please see note for summary details Assessment and Plan: Marivel is a 38-year-old female with metastatic cervical cancer, on pembrolizumab, due for C3 later this wk Pain: Currently on OxyContin and OxyIR when necessary w/ fentanyl prn. As well as Flexeril and gabapentin, will likely transition to methadone and add Cymbalta as an outpatient UTI: on Abx, cx pending, awaiting to hear back from uro/oncology regarding potential hyperbaric oxygen for bladder symptoms, urine culture ordered Metastatic cancer: on pembro, we'll see if we can keep her on schedule for cycle 3 later this week Blood per rectum: We will consult GI, may benefit from colonoscopy? Anemia: We'll check ferritin and iron panel, cont transfusion for hemoglobin less than 7 Prophylaxis: would add Lovenox prophylaxis if not getting procedures Thank you kindly for this consultation, and please don't hesitate to call with any further questions. Past Medical History Cardiovascular: No pertinent hx, Other Pulmonary: No pertinent hx GI: No pertinent hx Heme/Onc: Cancer, Other Hepatobiliary: No pertinent hx Psych: No pertinent hx Rheumatologic: No pertinent hx Infectious disease: No pertinent hx Renal/: No pertinent hx, Hematuria, Other Endocrine: No pertinent hx Past Surgical History Past Surgical History: Hysterectomy, Other Family History Family History: Cancer, Diabetes, Hypertension Social History ALCOHOL: none Drugs: None Current Problem List Problem List Problems Medical Problems: (1) Anemia Status: Acute (2) Weakness Status: Acute Current Medications Current Medications Current Medications Fentanyl Citrate (Fentanyl 2ml Vial) 50 mcg 1X ONCE IV Last administered on 11/13/18at 17:39; Start 11/13/18 at 17:30; Stop 11/13/18 at 17:31; Status DC Sodium Chloride 1,000 ml @ 1,000 mls/hr 1X ONCE IV Last administered on 11/13/18at 17:39; Start 11/13/18 at 17:30; Stop 11/13/18 at 18:29; Status DC Fentanyl Citrate (Fentanyl 2ml Vial) 50 mcg PRN Q2HRS PRN IV pain Last administered on 11/13/18at 19:12; Start 11/13/18 at 18:00 Fentanyl Citrate (Fentanyl 2ml Vial) 50 mcg 1X ONCE IV Last administered on 11/13/18at 17:59; Start 11/13/18 at 18:00; Stop 11/13/18 at 18:01; Status DC Ceftriaxone Sodium (Rocephin) 1 gm 1X ONCE IVP Last administered on 11/13/18at 19:12; Start 11/13/18 at 19:15; Stop 11/13/18 at 19:16; Status DC Fentanyl Citrate (Fentanyl 2ml Vial) 50 mcg PRN Q1HR PRN IV PAIN Last administered on 11/14/18at 18:06; Start 11/13/18 at 19:15; Stop 11/14/18 at 19:14; Status DC Cyclobenzaprine HCl (Flexeril) 10 mg TID PRN PRN PO back pain Last administered on 11/14/18at 22:57; Start 11/13/18 at 20:45 Lisinopril (Prinivil) 10 mg DAILY PO Last administered on 11/14/18at 09:54; Start 11/14/18 at 09:00 Promethazine HCl (Phenergan Supp) 12.5 mg PRN Q6HRS PRN RC NAUSEA; Start 11/13/18 at 20:45 Zolpidem Tartrate (Ambien) 5 mg QHS PO Last administered on 11/14/18at 20:20; Start 11/13/18 at 21:00 Gabapentin (Neurontin) 600 mg BID PO Last administered on 11/14/18at 20:20; Start 11/13/18 at 21:00 Pantoprazole Sodium (Protonix) 40 mg DAILYAC PO Last administered on 11/15/18at 06:15; Start 11/14/18 at 07:30 Oxycodone HCl (Roxicodone) 5 mg PRN Q3HRS PRN PO MODERATE PAIN 4-6; Start 11/13/18 at 21:00 Oxycodone HCl (OxyCONTIN) 20 mg Q12HR PO Last administered on 11/14/18at 20:20; Start 11/13/18 at 21:00 Oxycodone HCl (Roxicodone) 10 mg PRN Q3HRS PRN PO PAIN; Start 11/13/18 at 21:00; Status UNV Oxycodone HCl (Roxicodone) 15 mg PRN Q3HRS PRN PO PAIN; Start 11/13/18 at 21:00; Status UNV Acetaminophen (Tylenol) 650 mg PRN Q6HRS PRN PO MILD PAIN / TEMP; Start 11/13/18 at 21:00 Prochlorperazine Edisylate (Compazine) 10 mg PRN Q6HRS PRN IV NAUSEA/VOMITING 1ST CHOICE; Start 11/13/18 at 21:00 Oxycodone HCl (Roxicodone) 10 mg PRN Q3HRS PRN PO MODERATE PAIN 4-6; Start 11/13/18 at 21:15 Oxycodone HCl (Roxicodone) 15 mg PRN Q3HRS PRN PO SEVERE PAIN 7-10 Last administered on 11/15/18at 06:15; Start 11/13/18 at 21:15 Fentanyl Citrate (Fentanyl 2ml Vial) 50 mcg PRN Q1HR PRN IV SEVERE PAIN 7-10 Last administered on 11/15/18at 06:16; Start 11/13/18 at 22:00 Ceftriaxone Sodium (Rocephin) 1 gm Q24H IVP Last administered on 11/14/18at 20:12; Start 11/14/18 at 19:00; Stop 11/15/18 at 07:55; Status DC Levofloxacin/ Dextrose 100 ml @ 100 mls/hr Q24H IV ; Start 11/15/18 at 08:00 Active Scripts Active Reported Oxycontin (Oxycodone HCl) 20 Mg Tab.er.12h 20 Mg PO Q12HR Oxycodone Hcl 5 Mg Capsule 1-3 Tab PO PRN Q3HRS PRN Lisinopril 20 Mg Tablet 10 Mg PO DAILY Gabapentin 600 Mg Tablet 600 Mg PO BID Prevacid (Lansoprazole) 30 Mg Capsule.dr 30 Mg PO DAILY Cyclobenzaprine Hcl 10 Mg Tablet 10 Mg PO PRN PRN Phenergan (Promethazine HCl) 12.5 Mg Supp.rect 12.5 Mg RC PRN PRN Ambien (Zolpidem Tartrate) 5 Mg Tablet 1 Tab PO QHS Allergies Allergies: Coded Allergies: shrimp (Verified Allergy, Severe, mouth sore, 10/29/18) ondansetron (Verified Adverse Reaction, Severe, 10/29/18) reaction with chemo Vitals VITALS Vital Signs Date Time Temp Pulse Resp B/P (MAP) Pulse Ox O2 Delivery O2 Flow Rate FiO2 11/15/18 06:16 18 96 Room Air 11/15/18 02:41 98.4 76 110/62 (78) 98.4 Labs Labs Laboratory Tests Test 11/13/18 17:05 11/13/18 17:29 11/14/18 09:45 11/14/18 20:00 Urine Collection Type Unknown Urine Color Yellow Urine Clarity Clear Urine pH 5.0 Urine Specific [place] 1.015 Urine Protein 30 mg/dL (NEG-TRACE) Urine Glucose (UA) Negative mg/dL (NEG) Urine Ketones (Stick) Negative mg/dL (NEG) Urine Blood Small (NEG) Urine Nitrite Negative (NEG) Urine Bilirubin Negative (NEG) Urine Urobilinogen Dipstick 0.2 mg/dL (0.2 mg/dL) Urine Leukocyte Esterase Trace (NEG) Urine RBC 3-5 /HPF (0-2) Urine WBC 11-20 /HPF (0-4) Urine Squamous Epithelial Cells Mod /LPF Urine Bacteria Moderate /HPF (0-FEW) Urine Mucus Mod /LPF White Blood Count 4.4 x10^3/uL (4.0-11.0) 3.8 x10^3/uL (4.0-11.0) Red Blood Count 2.55 x10^6/uL (3.50-5.40) 3.13 x10^6/uL (3.50-5.40) Hemoglobin 7.0 g/dL (12.0-15.5) 8.8 g/dL (12.0-15.5) Hematocrit 21.0 % (36.0-47.0) 25.6 % (36.0-47.0) Mean Corpuscular Volume 83 fL (79-100) 82 fL (79-100) Mean Corpuscular Hemoglobin 27 pg (25-35) 28 pg (25-35) Mean Corpuscular Hemoglobin Concent 33 g/dL (31-37) 34 g/dL (31-37) Red Cell Distribution Width 17.1 % (11.5-14.5) 16.6 % (11.5-14.5) Platelet Count 303 x10^3/uL (140-400) 269 x10^3/uL (140-400) Neutrophils (%) (Auto) 67 % (31-73) 68 % (31-73) Lymphocytes (%) (Auto) 19 % (24-48) 16 % (24-48) Monocytes (%) (Auto) 10 % (0-9) 11 % (0-9) Eosinophils (%) (Auto) 3 % (0-3) 4 % (0-3) Basophils (%) (Auto) 1 % (0-3) 1 % (0-3) Neutrophils # (Auto) 2.9 x10^3/uL (1.8-7.7) 2.6 x10^3/uL (1.8-7.7) Lymphocytes # (Auto) 0.8 x10^3/uL (1.0-4.8) 0.6 x10^3/uL (1.0-4.8) Monocytes # (Auto) 0.5 x10^3/uL (0.0-1.1) 0.4 x10^3/uL (0.0-1.1) Eosinophils # (Auto) 0.1 x10^3/uL (0.0-0.7) 0.1 x10^3/uL (0.0-0.7) Basophils # (Auto) 0.0 x10^3/uL (0.0-0.2) 0.0 x10^3/uL (0.0-0.2) Prothrombin Time 14.1 SEC (11.7-14.0) Prothromb Time International Ratio 1.1 (0.8-1.1) Sodium Level 143 mmol/L (136-145) 143 mmol/L (136-145) Potassium Level 3.6 mmol/L (3.5-5.1) 3.8 mmol/L (3.5-5.1) Chloride Level 106 mmol/L (98-107) 107 mmol/L (98-107) Carbon Dioxide Level 25 mmol/L (21-32) 25 mmol/L (21-32) Anion Gap 12 (6-14) 11 (6-14) Blood Urea Nitrogen 13 mg/dL (7-20) 12 mg/dL (7-20) Creatinine 1.5 mg/dL (0.6-1.0) 1.4 mg/dL (0.6-1.0) Estimated GFR (Cockcroft-Gault) 38.9 42.1 BUN/Creatinine Ratio 9 (6-20) Glucose Level 83 mg/dL (70-99) 88 mg/dL (70-99) Lactic Acid Level 0.8 mmol/L (0.4-2.0) Calcium Level 9.2 mg/dL (8.5-10.1) 8.4 mg/dL (8.5-10.1) Magnesium Level 1.8 mg/dL (1.8-2.4) Total Bilirubin 0.2 mg/dL (0.2-1.0) Aspartate Amino Transf (AST/SGOT) 16 U/L (15-37) Alanine Aminotransferase (ALT/SGPT) 11 U/L (14-59) Alkaline Phosphatase 63 U/L (46-116) Total Protein 7.3 g/dL (6.4-8.2) Albumin 2.5 g/dL (3.4-5.0) Albumin/Globulin Ratio 0.5 (1.0-1.7) Stool Occult Blood Positive (NEG) Test 11/15/18 06:25 White Blood Count 4.7 x10^3/uL (4.0-11.0) Red Blood Count 2.98 x10^6/uL (3.50-5.40) Hemoglobin 8.3 g/dL (12.0-15.5) Hematocrit 24.8 % (36.0-47.0) Mean Corpuscular Volume 83 fL (79-100) Mean Corpuscular Hemoglobin 28 pg (25-35) Mean Corpuscular Hemoglobin Concent 33 g/dL (31-37) Red Cell Distribution Width 16.8 % (11.5-14.5) Platelet Count 274 x10^3/uL (140-400) Neutrophils (%) (Auto) 69 % (31-73) Lymphocytes (%) (Auto) 17 % (24-48) Monocytes (%) (Auto) 11 % (0-9) Eosinophils (%) (Auto) 4 % (0-3) Basophils (%) (Auto) 1 % (0-3) Neutrophils # (Auto) 3.2 x10^3/uL (1.8-7.7) Lymphocytes # (Auto) 0.8 x10^3/uL (1.0-4.8) Monocytes # (Auto) 0.5 x10^3/uL (0.0-1.1) Eosinophils # (Auto) 0.2 x10^3/uL (0.0-0.7) Basophils # (Auto) 0.0 x10^3/uL (0.0-0.2) Sodium Level 139 mmol/L (136-145) Potassium Level 3.6 mmol/L (3.5-5.1) Chloride Level 102 mmol/L (98-107) Carbon Dioxide Level 26 mmol/L (21-32) Anion Gap 11 (6-14) Blood Urea Nitrogen 14 mg/dL (7-20) Creatinine 1.5 mg/dL (0.6-1.0) Estimated GFR (Cockcroft-Gault) 38.9 BUN/Creatinine Ratio 9 (6-20) Glucose Level 110 mg/dL (70-99) Calcium Level 8.6 mg/dL (8.5-10.1) Total Bilirubin 0.2 mg/dL (0.2-1.0) Aspartate Amino Transf (AST/SGOT) 15 U/L (15-37) Alanine Aminotransferase (ALT/SGPT) 7 U/L (14-59) Alkaline Phosphatase 62 U/L (46-116) Total Protein 7.1 g/dL (6.4-8.2) Albumin 2.4 g/dL (3.4-5.0) Albumin/Globulin Ratio 0.5 (1.0-1.7) Laboratory Tests Test 11/14/18 09:45 11/14/18 20:00 11/15/18 06:25 White Blood Count 3.8 x10^3/uL (4.0-11.0) 4.7 x10^3/uL (4.0-11.0) Red Blood Count 3.13 x10^6/uL (3.50-5.40) 2.98 x10^6/uL (3.50-5.40) Hemoglobin 8.8 g/dL (12.0-15.5) 8.3 g/dL (12.0-15.5) Hematocrit 25.6 % (36.0-47.0) 24.8 % (36.0-47.0) Mean Corpuscular Volume 82 fL (79-100) 83 fL (79-100) Mean Corpuscular Hemoglobin 28 pg (25-35) 28 pg (25-35) Mean Corpuscular Hemoglobin Concent 34 g/dL (31-37) 33 g/dL (31-37) Red Cell Distribution Width 16.6 % (11.5-14.5) 16.8 % (11.5-14.5) Platelet Count 269 x10^3/uL (140-400) 274 x10^3/uL (140-400) Neutrophils (%) (Auto) 68 % (31-73) 69 % (31-73) Lymphocytes (%) (Auto) 16 % (24-48) 17 % (24-48) Monocytes (%) (Auto) 11 % (0-9) 11 % (0-9) Eosinophils (%) (Auto) 4 % (0-3) 4 % (0-3) Basophils (%) (Auto) 1 % (0-3) 1 % (0-3) Neutrophils # (Auto) 2.6 x10^3/uL (1.8-7.7) 3.2 x10^3/uL (1.8-7.7) Lymphocytes # (Auto) 0.6 x10^3/uL (1.0-4.8) 0.8 x10^3/uL (1.0-4.8) Monocytes # (Auto) 0.4 x10^3/uL (0.0-1.1) 0.5 x10^3/uL (0.0-1.1) Eosinophils # (Auto) 0.1 x10^3/uL (0.0-0.7) 0.2 x10^3/uL (0.0-0.7) Basophils # (Auto) 0.0 x10^3/uL (0.0-0.2) 0.0 x10^3/uL (0.0-0.2) Sodium Level 143 mmol/L (136-145) 139 mmol/L (136-145) Potassium Level 3.8 mmol/L (3.5-5.1) 3.6 mmol/L (3.5-5.1) Chloride Level 107 mmol/L (98-107) 102 mmol/L (98-107) Carbon Dioxide Level 25 mmol/L (21-32) 26 mmol/L (21-32) Anion Gap 11 (6-14) 11 (6-14) Blood Urea Nitrogen 12 mg/dL (7-20) 14 mg/dL (7-20) Creatinine 1.4 mg/dL (0.6-1.0) 1.5 mg/dL (0.6-1.0) Estimated GFR (Cockcroft-Gault) 42.1 38.9 Glucose Level 88 mg/dL (70-99) 110 mg/dL (70-99) Calcium Level 8.4 mg/dL (8.5-10.1) 8.6 mg/dL (8.5-10.1) Stool Occult Blood Positive (NEG) BUN/Creatinine Ratio 9 (6-20) Total Bilirubin 0.2 mg/dL (0.2-1.0) Aspartate Amino Transf (AST/SGOT) 15 U/L (15-37) Alanine Aminotransferase (ALT/SGPT) 7 U/L (14-59) Alkaline Phosphatase 62 U/L (46-116) Total Protein 7.1 g/dL (6.4-8.2) Albumin 2.4 g/dL (3.4-5.0) Albumin/Globulin Ratio 0.5 (1.0-1.7) POWER RAINES MD Nov 15, 2018 08:04
[2018-11-15] MEDS: LISINOPRIL 10 MG TABLET PO SCH (08:18)
[2018-11-15] MEDS: GABAPENTIN 300 MG CAPSULE. PO SCH ×2 (08:18→21:07)
[2018-11-15] MEDS: oxyCODONE ER 10 MG TAB.ER.12H PO SCH ×2 (08:18→21:07)
[2018-11-15 11:00] VITALS: BP 108/63
--- NOTE | 2018-11-15 12:20 | NUR ---
SS following for discharge planning. SS reviewed pt chart. Pt is from home and is currently on room air. No discharge needs noted at this time. SS will continue to follow for discharge planning.
--- NOTE | 2018-11-15 12:44 | PDOC2 ---
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 H/o chemo/rad in 2018, now on immunotherapy. Admitted through ER on 11/13/18 w/ fever, flank pain, and rectal bleeding. Bleeding actually seems chronic - typically sees red blood on toilet tissue or around stool w/ each bowel movement; however, over the weekend bleeding seems more than usual ("thicker with clots") - still associated w/ soft formed stool though occurred once without. No rectal pain. Has chronic abd and pelvic pain - quality of pain is unchanged but location has migrated from suprapubic region to "behind belly button." Anemia is chronic - recent average Hgb in 8-9 range. Was 7 this time, now in 8s after transfusion 1 unit. BUN is normal. Iron, TIBC, and sat all low. Hemoccult positive. On Levaquin for ?UTI H/o GERD on omeprazole QD. No dysphagia or n/v. Decreased appetite prior to admission (didn't eat in 4-5 days) but that is better now. No diarrhea or constipation. Takes Colace. No melena. Had EGD in 11/2017 - cannot view procedure report but she says showed gastritis. US that month showed possible GB sludge and HIDA was unrevealing w/ normal GB EF of 96%. Last CT A/P from 09/2018 noted persistent rectal wall thickening and progressive wall thickening of the colon from the hepatic flexure down into the sigmoid colon and rectum. No liver or pancreas history. No previous colonoscopy. Takes OxyContin at home. PMH: PMH: cervical cancer, anemia, GERD, hemorrhoid hysterectomy, cystoscopy, lymph node biopsy, lumbar puncture, port placement FH: Family History: Cancer (uterine), DM, Hypertension Social History: Smoke: Quit ALCOHOL: occassional Drugs: None ROS: GEN: +fever HEENT: Denies blurred vision, sore throat CV: Denies chest pain RESP: Denies shortness of air, cough GI: Per HPI : Denies hematuria, dysuria ENDO: Denies weight changes NEURO: Denies confusion, dizziness MSK: Denies weakness, joint pain/swelling SKIN: Denies jaundice, pruritus Vitals: Vitals: Vital Signs Date Time Temp Pulse Resp B/P (MAP) Pulse Ox O2 Delivery O2 Flow Rate FiO2 11/15/18 11:00 98.1 66 16 108/63 (78) 94 Nasal Cannula 98.1 Labs: Labs: Laboratory Tests Test 11/14/18 20:00 11/15/18 06:25 Stool Occult Blood Positive (NEG) White Blood Count 4.7 x10^3/uL (4.0-11.0) Red Blood Count 2.98 x10^6/uL (3.50-5.40) Hemoglobin 8.3 g/dL (12.0-15.5) Hematocrit 24.8 % (36.0-47.0) Mean Corpuscular Volume 83 fL (79-100) Mean Corpuscular Hemoglobin 28 pg (25-35) Mean Corpuscular Hemoglobin Concent 33 g/dL (31-37) Red Cell Distribution Width 16.8 % (11.5-14.5) Platelet Count 274 x10^3/uL (140-400) Neutrophils (%) (Auto) 69 % (31-73) Lymphocytes (%) (Auto) 17 % (24-48) Monocytes (%) (Auto) 11 % (0-9) Eosinophils (%) (Auto) 4 % (0-3) Basophils (%) (Auto) 1 % (0-3) Neutrophils # (Auto) 3.2 x10^3/uL (1.8-7.7) Lymphocytes # (Auto) 0.8 x10^3/uL (1.0-4.8) Monocytes # (Auto) 0.5 x10^3/uL (0.0-1.1) Eosinophils # (Auto) 0.2 x10^3/uL (0.0-0.7) Basophils # (Auto) 0.0 x10^3/uL (0.0-0.2) Sodium Level 139 mmol/L (136-145) Potassium Level 3.6 mmol/L (3.5-5.1) Chloride Level 102 mmol/L (98-107) Carbon Dioxide Level 26 mmol/L (21-32) Anion Gap 11 (6-14) Blood Urea Nitrogen 14 mg/dL (7-20) Creatinine 1.5 mg/dL (0.6-1.0) Estimated GFR (Cockcroft-Gault) 38.9 BUN/Creatinine Ratio 9 (6-20) Glucose Level 110 mg/dL (70-99) Calcium Level 8.6 mg/dL (8.5-10.1) Iron Level 19 ug/dL (50-170) Total Iron Binding Capacity 202 ug/dL (250-450) Iron Saturation 9 % (15-34) Ferritin 116 ng/mL (8-252) Total Bilirubin 0.2 mg/dL (0.2-1.0) Aspartate Amino Transf (AST/SGOT) 15 U/L (15-37) Alanine Aminotransferase (ALT/SGPT) 7 U/L (14-59) Alkaline Phosphatase 62 U/L (46-116) Total Protein 7.1 g/dL (6.4-8.2) Albumin 2.4 g/dL (3.4-5.0) Albumin/Globulin Ratio 0.5 (1.0-1.7) BLOOD CULTURE Preliminary NO GROWTH AFTER 1 DAY Allergies: Coded Allergies: shrimp (Verified Allergy, Severe, mouth sore, 10/29/18) ondansetron (Verified Adverse Reaction, Severe, 10/29/18) reaction with chemo Medications: Current Medications Medications (Trade) Dose Ordered Sig/Sanna Route PRN Reason Start Time Stop Time Status Last Admin Dose Admin Ceftriaxone Sodium (Rocephin) 1 gm Q24H IVP 11/14/18 19:00 11/15/18 07:55 DC 11/14/18 20:12 Levofloxacin/ Dextrose 100 ml @ 100 mls/hr Q24H IV 11/15/18 08:00 11/15/18 10:06 Imaging: Imaging: Reviewed previous in [facility]. PE: GEN: NAD HEENT: Atraumatic, PERRL LUNGS: CTAB HEART: RRR, port ABD: NABS, S/ND, diffuse discomfort EXTREMITY: No edema SKIN: No rashes, no jaundice NEURO/PSYCH: A & O �3 A/P: A/P: Fever, flank pain, blood in stools Stage IV cervical cancer - CT last month w/ persistent rectal wall thickening and progressive wall thickening of the colon from the hepatic flexure down into the sigmoid colon and rectum Chronic anemia - ?element of iron deficiency, hematology following Chronic abd/pelv pain GERD - on PPI H/o hemorrhoids CKD -- Chronic bleeding/anemia - worse recently. ?radiation proctitis/colitis - consider colonoscopy at some point. Continue PPI. Restart Colace - she takes this at home. Monitor bleeding/labs, transfuse as needed. SALVADOR CARY Nov 15, 2018 12:44
[2018-11-15] MEDS ORDERED: POLYETHYLENE GLYCOL 3350 17 GM PACKET. PO PRN (12:45)
[2018-11-15] MEDS: DOCUSATE SODIUM 100 MG CAPSULE. PO SCH (13:00)
[2018-11-15 15:00] VITALS: BP 103/62
[2018-11-15 19:00] VITALS: BP 124/73
[2018-11-15] MEDS: ZOLPIDEM 5 MG TABLET. PO SCH (21:07)
[2018-11-15 22:55] VITALS: BP 124/64
[2018-11-16] MEDS: fentaNYL PF VIAL 100 MCG/2 ML VIAL IV PRN ×3 (00:47→04:02)
[2018-11-16 03:00] VITALS: BP 103/57
[2018-11-16] MEDS: oxyCODONE IR 5 MG TABLET PO PRN ×2 (04:02→08:25)
[2018-11-16 07:00] VITALS: BP 83/38
[2018-11-16] MEDS: PANTOPRAZOLE 40 MG TABLET.DR. PO SCH (07:39)
--- NOTE | 2018-11-16 08:05 | PDOC ---
PROGRESS NOTES Subjective Subjective Patient without complaint, feels ready to go home today. Objective Objective Vital Signs Date Time Temp Pulse Resp B/P (MAP) Pulse Ox O2 Delivery O2 Flow Rate FiO2 11/16/18 05:06 Room Air 11/16/18 03:00 97.9 63 18 103/57 (72) 92 97.9 Intake and Output 11/16/18 07:00 Intake Total 1300 ml Balance 1300 ml Intake Oral 1100 ml IV Total 100 ml Blood Product IV Normal Saline Flush 100 ml # Voids 17 # Bowel Movements 1 Physical Exam Abdomen: Normal bowel sounds, Soft, No tenderness Heart: Regular rate Extremities: No edema General: Alert, Oriented X3, No acute distress (resting comfortably in bed) Lungs: Clear to auscultation Assessment Assessment Problems Medical Problems: (1) Anemia Status: Acute (2) Weakness Status: Acute Plan Plan of Care 1 Weakness and anemia - symptoms much improved after rest and transfusion. Lab shows iron deficiency, defer to Dr Raines for tx of this. Home this afternoon. 2. metastatic cervical cancer - continue immunotherapy. Pain meds per Dr Raines. 3. possible UTI - preliminary culture report still pending but should be available this PM. Patient receiving Levaquin this AM so will not need tx for 24 hours. Will check on culture from office and treat if indicated. 4. HTN - controlled, continue home medication. 5. CKD - creatinine at (recent) baseline. Comment Review of Relevant I have reviewed the following items heather (where applicable) has been applied. Labs Laboratory Tests Test 11/14/18 09:45 11/14/18 20:00 11/15/18 06:25 White Blood Count 3.8 x10^3/uL (4.0-11.0) 4.7 x10^3/uL (4.0-11.0) Red Blood Count 3.13 x10^6/uL (3.50-5.40) 2.98 x10^6/uL (3.50-5.40) Hemoglobin 8.8 g/dL (12.0-15.5) 8.3 g/dL (12.0-15.5) Hematocrit 25.6 % (36.0-47.0) 24.8 % (36.0-47.0) Mean Corpuscular Volume 82 fL (79-100) 83 fL (79-100) Mean Corpuscular Hemoglobin 28 pg (25-35) 28 pg (25-35) Mean Corpuscular Hemoglobin Concent 34 g/dL (31-37) 33 g/dL (31-37) Red Cell Distribution Width 16.6 % (11.5-14.5) 16.8 % (11.5-14.5) Platelet Count 269 x10^3/uL (140-400) 274 x10^3/uL (140-400) Neutrophils (%) (Auto) 68 % (31-73) 69 % (31-73) Lymphocytes (%) (Auto) 16 % (24-48) 17 % (24-48) Monocytes (%) (Auto) 11 % (0-9) 11 % (0-9) Eosinophils (%) (Auto) 4 % (0-3) 4 % (0-3) Basophils (%) (Auto) 1 % (0-3) 1 % (0-3) Neutrophils # (Auto) 2.6 x10^3/uL (1.8-7.7) 3.2 x10^3/uL (1.8-7.7) Lymphocytes # (Auto) 0.6 x10^3/uL (1.0-4.8) 0.8 x10^3/uL (1.0-4.8) Monocytes # (Auto) 0.4 x10^3/uL (0.0-1.1) 0.5 x10^3/uL (0.0-1.1) Eosinophils # (Auto) 0.1 x10^3/uL (0.0-0.7) 0.2 x10^3/uL (0.0-0.7) Basophils # (Auto) 0.0 x10^3/uL (0.0-0.2) 0.0 x10^3/uL (0.0-0.2) Sodium Level 143 mmol/L (136-145) 139 mmol/L (136-145) Potassium Level 3.8 mmol/L (3.5-5.1) 3.6 mmol/L (3.5-5.1) Chloride Level 107 mmol/L (98-107) 102 mmol/L (98-107) Carbon Dioxide Level 25 mmol/L (21-32) 26 mmol/L (21-32) Anion Gap 11 (6-14) 11 (6-14) Blood Urea Nitrogen 12 mg/dL (7-20) 14 mg/dL (7-20) Creatinine 1.4 mg/dL (0.6-1.0) 1.5 mg/dL (0.6-1.0) Estimated GFR (Cockcroft-Gault) 42.1 38.9 Glucose Level 88 mg/dL (70-99) 110 mg/dL (70-99) Calcium Level 8.4 mg/dL (8.5-10.1) 8.6 mg/dL (8.5-10.1) Stool Occult Blood Positive (NEG) BUN/Creatinine Ratio 9 (6-20) Iron Level 19 ug/dL (50-170) Total Iron Binding Capacity 202 ug/dL (250-450) Iron Saturation 9 % (15-34) Ferritin 116 ng/mL (8-252) Total Bilirubin 0.2 mg/dL (0.2-1.0) Aspartate Amino Transf (AST/SGOT) 15 U/L (15-37) Alanine Aminotransferase (ALT/SGPT) 7 U/L (14-59) Alkaline Phosphatase 62 U/L (46-116) Total Protein 7.1 g/dL (6.4-8.2) Albumin 2.4 g/dL (3.4-5.0) Albumin/Globulin Ratio 0.5 (1.0-1.7) Microbiology 11/13/18 Blood Culture - Preliminary, Resulted NO GROWTH AFTER 2 DAYS Medications Current Medications Fentanyl Citrate (Fentanyl 2ml Vial) 50 mcg 1X ONCE IV Last administered on 11/13/18at 17:39; Start 11/13/18 at 17:30; Stop 11/13/18 at 17:31; Status DC Sodium Chloride 1,000 ml @ 1,000 mls/hr 1X ONCE IV Last administered on 11/13/18at 17:39; Start 11/13/18 at 17:30; Stop 11/13/18 at 18:29; Status DC Fentanyl Citrate (Fentanyl 2ml Vial) 50 mcg PRN Q2HRS PRN IV pain Last administered on 11/16/18at 00:47; Start 11/13/18 at 18:00 Fentanyl Citrate (Fentanyl 2ml Vial) 50 mcg 1X ONCE IV Last administered on 11/13/18at 17:59; Start 11/13/18 at 18:00; Stop 11/13/18 at 18:01; Status DC Ceftriaxone Sodium (Rocephin) 1 gm 1X ONCE IVP Last administered on 11/13/18at 19:12; Start 11/13/18 at 19:15; Stop 11/13/18 at 19:16; Status DC Fentanyl Citrate (Fentanyl 2ml Vial) 50 mcg PRN Q1HR PRN IV PAIN Last administered on 11/14/18at 18:06; Start 11/13/18 at 19:15; Stop 11/14/18 at 19:14; Status DC Cyclobenzaprine HCl (Flexeril) 10 mg TID PRN PRN PO back pain Last administered on 11/14/18at 22:57; Start 11/13/18 at 20:45 Lisinopril (Prinivil) 10 mg DAILY PO Last administered on 11/15/18at 08:19; Start 11/14/18 at 09:00 Promethazine HCl (Phenergan Supp) 12.5 mg PRN Q6HRS PRN RC NAUSEA; Start 11/13/18 at 20:45 Zolpidem Tartrate (Ambien) 5 mg QHS PO Last administered on 11/15/18at 21:11; Start 11/13/18 at 21:00 Gabapentin (Neurontin) 600 mg BID PO Last administered on 11/15/18at 21:11; Start 11/13/18 at 21:00 Pantoprazole Sodium (Protonix) 40 mg DAILYAC PO Last administered on 11/16/18at 07:39; Start 11/14/18 at 07:30 Oxycodone HCl (Roxicodone) 5 mg PRN Q3HRS PRN PO MILD PAIN 1 - 3; Start 11/13/18 at 21:00 Oxycodone HCl (OxyCONTIN) 20 mg Q12HR PO Last administered on 11/15/18at 21:11; Start 11/13/18 at 21:00 Oxycodone HCl (Roxicodone) 10 mg PRN Q3HRS PRN PO PAIN; Start 11/13/18 at 21:00; Status UNV Oxycodone HCl (Roxicodone) 15 mg PRN Q3HRS PRN PO PAIN; Start 11/13/18 at 21:00; Status UNV Acetaminophen (Tylenol) 650 mg PRN Q6HRS PRN PO MILD PAIN / TEMP; Start 11/13/18 at 21:00 Prochlorperazine Edisylate (Compazine) 10 mg PRN Q6HRS PRN IV NAUSEA/VOMITING 1ST CHOICE; Start 11/13/18 at 21:00 Oxycodone HCl (Roxicodone) 10 mg PRN Q3HRS PRN PO MODERATE PAIN 4-6; Start 11/13/18 at 21:15 Oxycodone HCl (Roxicodone) 15 mg PRN Q3HRS PRN PO SEVERE PAIN 7-10 Last administered on 11/16/18at 04:05; Start 11/13/18 at 21:15 Fentanyl Citrate (Fentanyl 2ml Vial) 50 mcg PRN Q1HR PRN IV SEVERE PAIN 7-10 Last administered on 11/16/18at 04:05; Start 11/13/18 at 22:00 Ceftriaxone Sodium (Rocephin) 1 gm Q24H IVP Last administered on 11/14/18at 20:12; Start 11/14/18 at 19:00; Stop 11/15/18 at 07:55; Status DC Levofloxacin/ Dextrose 100 ml @ 100 mls/hr Q24H IV Last administered on 11/16/18at 07:39; Start 11/15/18 at 08:00 Docusate Sodium (Colace) 100 mg DAILY PO ; Start 11/15/18 at 13:00 Polyethylene Glycol (miraLAX PACKET) 17 gm PRN DAILY PRN PO CONSTIPATION; Start 11/15/18 at 12:45 Active Scripts Active Reported Oxycontin (Oxycodone HCl) 20 Mg Tab.er.12h 20 Mg PO Q12HR Oxycodone Hcl 5 Mg Capsule 1-3 Tab PO PRN Q3HRS PRN Lisinopril 20 Mg Tablet 10 Mg PO DAILY Gabapentin 600 Mg Tablet 600 Mg PO BID Prevacid (Lansoprazole) 30 Mg Capsule.dr 30 Mg PO DAILY Cyclobenzaprine Hcl 10 Mg Tablet 10 Mg PO PRN PRN Phenergan (Promethazine HCl) 12.5 Mg Supp.rect 12.5 Mg RC PRN PRN Ambien (Zolpidem Tartrate) 5 Mg Tablet 1 Tab PO QHS Vitals/I & O Vital Sign - Last 24 Hours 11/15/18 11/15/18 11/15/18 11/15/18 08:19 11:00 15:00 19:00 Temp 98.1 98.2 97.8 98.1 98.2 97.8 Pulse 65 66 72 68 Resp 16 20 18 B/P (MAP) 109/53 108/63 (78) 103/62 (76) 124/73 (90) Pulse Ox 94 95 98 O2 Delivery Nasal Cannula Room Air Room Air 11/15/18 11/15/18 11/15/18 11/15/18 19:08 19:19 20:05 20:17 O2 Delivery Room Air Room Air Room Air Room Air 11/15/18 11/15/18 11/15/18 11/15/18 21:11 21:11 22:55 23:07 Temp 98.2 98.2 Pulse 74 Resp 18 B/P (MAP) 124/64 (84) Pulse Ox 95 O2 Delivery Room Air Room Air Room Air Room Air 11/15/18 11/15/18 11/16/18 11/16/18 23:44 23:45 00:47 01:12 O2 Delivery Room Air Room Air Room Air Room Air 11/16/18 11/16/18 11/16/18 11/16/18 01:12 01:58 02:38 03:00 Temp 97.9 97.9 Pulse 63 Resp 18 B/P (MAP) 103/57 (72) Pulse Ox 95 92 O2 Delivery Room Air Room Air Room Air Room Air 11/16/18 11/16/18 11/16/18 11/16/18 04:05 04:05 04:57 05:06 O2 Delivery Room Air Room Air Room Air Room Air Intake and Output 11/15/18 11/15/18 11/16/18 15:00 23:00 07:00 Intake Total 700 ml 200 ml 400 ml Balance 700 ml 200 ml 400 ml ALYSSA MARTELL MD Nov 16, 2018 08:05
[2018-11-16] MEDS ORDERED: DOCU-109 PO (08:08)
[2018-11-16] MEDS ORDERED: POLY17PO28 PO (08:08)
[2018-11-16] MEDS: GABAPENTIN 300 MG CAPSULE. PO SCH (08:20)
[2018-11-16] MEDS: oxyCODONE ER 10 MG TAB.ER.12H PO SCH (08:21)
[2018-11-16] MEDS: DOCUSATE SODIUM 100 MG CAPSULE. PO SCH (08:26)
[2018-11-16] MEDS: LISINOPRIL 10 MG TABLET PO SCH (08:26)
--- NOTE | 2018-11-16 08:50 | DS ---
DATE OF DISCHARGE: 11/16/2018 CHIEF COMPLAINT: Fatigue. HISTORY OF PRESENT ILLNESS: The patient is a 38-year-old female with metastatic cervical cancer, who came to the Emergency Room with the above complaint. She reported increasing fatigue and abdominal pain for the past 48 hours. She is presently on immunotherapy for treatment of her cervical cancer. Evaluation in the Emergency Room showed her to be anemic with hemoglobin of 7. Treatment was started and she was admitted for further care. HOSPITAL COURSE: The patient was seen in consultation by Gastroenterology and Oncology. Stool was positive for blood. She received 1 unit of packed red blood cells in transfusion and had an improvement in her hemoglobin to 8.8. She reported that her weakness was much improved after the transfusion. Dr. Raines ordered some lab for further evaluation. This showed low serum iron and low iron saturation, although ferritin was within the normal range at 116. The patient's urinalysis was mildly abnormal at admission with 11-20 wbc's, but also moderate squamous epithelial cells present. 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 She was started on Rocephin for treatment of a possible urinary tract infection and this was changed to Levaquin due to her history of Enterococcus UTI several months ago. The preliminary urine culture is still pending; however, the patient did receive a dose of Levaquin this morning, so does not need further antibiotic treatment for another 24 hours. Final urine culture results will be checked from our office and the patient will be prescribed further antibiotics if indicated. The patient has chronic pelvic pain. She controls this at home with oxycodone and OxyContin. While hospitalized, she took frequent doses of IV fentanyl. Pain management is from Dr. Raines. The patient's hypertension was well controlled with lisinopril. The patient has had an increased creatinine on her labs here for the past several months. Her last CT of the abdomen and pelvis showed bilateral hydronephrosis and this is presumed that her metastatic cervical cancer is causing this. Her baseline creatinine appears to be about 1.4 or 1.5 and that is what her lab was at admission and at discharge. The patient states she feels much better and will be discharged home today. FINAL DIAGNOSES: 1. Metastatic cervical cancer. 2. Iron deficiency anemia with acute gastrointestinal bleed. 3. Hypertension. 4. Chronic kidney disease. DISCHARGE MEDICATIONS: Colace 100 mg daily p.r.n., MiraLax 17 grams daily p.r.n., Flexeril 10 mg p.r.n. back pain, gabapentin 600 mg b.i.d., Prevacid 30 mg daily, lisinopril 10 mg daily, oxycodone 5 mg 1-3 tablets every 3-4 hours p.r.n., OxyContin 20 mg one p.o. b.i.d., Phenergan suppositories p.r.n., and Ambien 5 mg at bedtime. FOLLOWUP VISITS: Follow up with Dr. Bowman as needed. Follow up with Dr. Raines as advised. AYLSSA BOWMAN MD DR: HARJIT/nts JOB#: [id number] / [id number]
[2018-11-16] MEDS ORDERED: HEPARIN PF 500 UNIT/5 ML DISP.SYRIN. IV ONE (09:30)
--- NOTE | 2018-11-16 09:31 | PDOC ---
SUBJECTIVE Subjective S: Better, ready to go home O: Physical exam: Gen.: Well-nourished and well-developed, resting in bed Lungs: Breathing comfortably with no evidence of respiratory distress Psychiatric: Pleasant mood and affect Labs: Iron sat 9%, TIBC low, ferritin 116 Assessment and Plan: Marivel is a 38-year-old female with metastatic cervical cancer, on pembrolizumab, due for C3 later this wk Pain: Currently on OxyContin and OxyIR when necessary w/ fentanyl prn. As well as Flexeril and gabapentin, will likely transition to methadone and add Cymbalta as an outpatient UTI: on Abx, per primary, waiting to hear back from uro/oncology regarding potential hyperbaric oxygen for bladder symptoms Metastatic cancer: on pembro, we'll see if we can keep her on schedule for cycle 3 later this week Blood per rectum: plan for colonoscopy as outpt Anemia: c/w AOCI, cont transfusion for hemoglobin less than 7 dispo: home today likely, f/u w/ us as outpt Thank you kindly and please do not hesitate to call with questions. OBJECTIVE Vital Signs Vital Signs Date Time Temp Pulse Resp B/P (MAP) Pulse Ox O2 Delivery O2 Flow Rate FiO2 11/16/18 08:26 64 83/38 11/16/18 08:25 18 11/16/18 08:25 18 11/16/18 08:00 Room Air 11/16/18 07:00 98.1 64 14 83/38 (53) 94 Room Air 98.1 11/16/18 05:06 Room Air 11/16/18 04:57 Room Air 11/16/18 04:05 Room Air 11/16/18 04:05 Room Air 11/16/18 03:00 97.9 63 18 103/57 (72) 92 Room Air 97.9 11/16/18 02:38 95 Room Air 11/16/18 01:58 Room Air 11/16/18 01:12 Room Air 11/16/18 01:12 Room Air 11/16/18 00:47 Room Air 11/15/18 23:45 Room Air 11/15/18 23:44 Room Air 11/15/18 23:07 Room Air 11/15/18 22:55 98.2 74 18 124/64 (84) 95 Room Air 98.2 11/15/18 21:11 Room Air 11/15/18 21:11 Room Air 11/15/18 20:17 Room Air 11/15/18 20:05 Room Air 11/15/18 19:19 Room Air 11/15/18 19:08 Room Air 11/15/18 19:00 97.8 68 18 124/73 (90) 98 Room Air 97.8 11/15/18 15:00 98.2 72 20 103/62 (76) 95 Room Air 98.2 11/15/18 11:00 98.1 66 16 108/63 (78) 94 Nasal Cannula 98.1 I & O Intake and Output 11/16/18 06:59 Intake Total 1300 ml Balance 1300 ml Intake Oral 1100 ml IV Total 100 ml Blood Product IV Normal Saline Flush 100 ml # Voids 17 # Bowel Movements 1 POWER MEHTA MD Nov 16, 2018 09:31
[2018-11-16 09:33] VITALS: BP 118/69
--- NOTE | 2018-11-16 10:07 | NUR ---
Patient blood pressure low earlier, but WNL now. See VS record. Patient denies weakness or dizziness. Discharge instructions and medications reviewed with patient, she verb. understanding all instructions and denies questions. Patient has all instructions and belongings. Discharge per wheelchair, home with family.
== END 2018-11-16 10:20 | disposition home or self-care (01) | DRG 378 ==
LOC: ER 16:55 → 5 NORTH 19:09
PROVIDERS: ADMIT Family Medicine; ATTEND Family Medicine
PROC: 30233N1 Transfusion of Nonautologous Red Blood Cells into Peripheral Vein, Percutaneous Approach (ICD-10-PCS; principal; 2018-11-13)
DX: K92.2 Gastrointestinal hemorrhage, unspecified (principal); C79.11 Secondary malignant neoplasm of bladder; C79.51 Secondary malignant neoplasm of bone; N39.0 Urinary tract infection, site not specified; D50.9 Iron deficiency anemia, unspecified; C53.9 Malignant neoplasm of cervix uteri, unspecified; G89.29 Other chronic pain; I12.9 Hypertensive chronic kidney disease with stage 1 through stage 4 chronic kidney disease, or unspecified chronic kidney disease; K21.9 Gastro-esophageal reflux disease without esophagitis; N18.9 Chronic kidney disease, unspecified; Z80.49 Family history of malignant neoplasm of other genital organs; Z82.49 Family history of ischemic heart disease and other diseases of the circulatory system; Z83.3 Family history of diabetes mellitus; Z87.891 Personal history of nicotine dependence; Z90.710 Acquired absence of both cervix and uterus; Z92.21 Personal history of antineoplastic chemotherapy; Z92.3 Personal history of irradiation; Z88.8 Allergy status to other drugs, medicaments and biological substances; Z91.013 Allergy to seafood; Z90.722 Acquired absence of ovaries, bilateral
CPT/HCPCS: 36415; 80048; 80053; 81001; 82274; 82728; 83540; 83550; 83605; 83735; 85025; 85610; 86850; 86900; 86901; 86920; 87040; 87086; J0696; J1956; J3010; J7030; P9016; G0378

== ENCOUNTER → 2018-12-14 | Outpatient (CLI) | payer OTHER ==
[2018-12-10 09:22] VITALS: BP 105/54
[~2018-12-14] MED LIST changes: +FURO20TA3 PO; -LINE600T PO; +LINE600T37 PO; +LOPE-101 PO; -LOPE2CAP88 PO; +METH5TAB2 PO; +PEMB100V IV; +POLY17PO28 PO
[2018-12-14 09:25] LABS: CALCIUM 9.7 mg/dL (8.5-10.1); CREATININE 2.2 mg/dL (0.6-1.0); MAGNESIUM 1.7 mg/dL (1.8-2.4); POTASSIUM 4.4 mmol/L (3.5-5.1)
== END | disposition home or self-care (01) ==
LOC: LAB 08:56
PROVIDERS: ATTEND Internal Medicine Cardiovascular Disease
DX: I12.9 Hypertensive chronic kidney disease with stage 1 through stage 4 chronic kidney disease, or unspecified chronic kidney disease (principal); N18.3 Chronic kidney disease, stage 3 (moderate)
CPT/HCPCS: 36415; 80048; 83735

== ENCOUNTER → 2018-12-21 | Outpatient (CLI) | payer OTHER ==
[~2018-12-21] MED LIST changes: +ACETAMINOPHEN 325 MG TABLET. PO PRN; +HEPARIN PF 500 UNIT/5 ML DISP.SYRIN. IV ONE; +diphenhydrAMINE HCL 25 MG CAPSULE PO PRN
[2018-12-21 08:06] VITALS: BP 90/49
[2018-12-21 08:18] LABS: HEMATOCRIT 24.7 % (36.0-47.0)
[2018-12-21 09:55] VITALS: BP 92/54
[2018-12-21 10:49] VITALS: BP 98/54
[2018-12-21 11:24] VITALS: BP 103/57
== END | disposition home or self-care (01) ==
LOC: OPS 07:30
PROVIDERS: ATTEND Internal Medicine Hematology & Oncology
DX: D64.9 Anemia, unspecified (principal); I12.9 Hypertensive chronic kidney disease with stage 1 through stage 4 chronic kidney disease, or unspecified chronic kidney disease; N18.3 Chronic kidney disease, stage 3 (moderate); K21.9 Gastro-esophageal reflux disease without esophagitis; E78.5 Hyperlipidemia, unspecified; Z87.891 Personal history of nicotine dependence; Z85.41 Personal history of malignant neoplasm of cervix uteri; Z90.710 Acquired absence of both cervix and uterus
CPT/HCPCS: 36415; 36430; 85014; 85018; 86850; 86900; 86901; 86920; P9016; Q0163

== ENCOUNTER → 2018-12-27 | Outpatient (CLI) | payer OTHER ==
[2018-12-21 11:24] VITALS: BP 103/57
[~2018-12-27] MED LIST changes: -ACETAMINOPHEN 325 MG TABLET. PO PRN; +REGADENOSON 0.4 MG/5 ML DISP.SYRIN. IV ONE; -diphenhydrAMINE HCL 25 MG CAPSULE PO PRN
--- NOTE | 2018-12-28 09:20 | RAD ---
MR#: [id number] Date of Study: 12/27/2018 Ordering Physician: JOSE NOLAN, Referring Physician: CARSON IZAGUIRRE Tech: RT Indu (R) (N) APPROVED REPORT Test Type: Pharmacological Stress Nurse/Tech: Violette Rosales RN Test Indications: Chest pain (midsternum) Cardiac History: Cervical Cancer stage 3 Medications: See Electronic Medical Record Medical History: See Electronic Medical Record Resting ECG: SB Resting Heart Rate: 63 bpm Resting Blood Pressure: 104/52mmHg Pretest Chest Pain: No chest pain Nurse/Tech Notes S1,S2 and lungs slightly diminished in the bases. Consent: The procedure was explained to the patient in lay terms. Informed consent was witnessed. Timothy eout was entered into [employer]. History and Stress Test performed by JENNIFER Wiley Pharm. Details Pharmacologic stress testing was performed using 0.4mg per 5ml of regadenoson given intravenously ove r 7-10 seconds. Stress Symptoms Nausea and vomitting,Fatigue,Dyspnea, "weird feeling" POST EXERCISE Reason for Termination: Infusion complete Target HR: No Max HR: 150 bpm 97% of Maximum Predicted HR: 154 bpm Max Blood Pressure: 113/60mmHg Blood Pressure response to exercise: Normal blood pressure response during stress. Heart Rate response to exercise: WNL Chest Pain: No. Arrhythmia: No. ST Change: No. INTERPRETATION Stress EKG Conclusion: Baseline EKG showed sinus rhythm. No ischemic changes at peak stress. No arr hythmias. Imaging Protocol IMAGE PROTOCOL: Rest Tc-99m/stress Tc-99m 1 day Rest: Stress: Viability: Radiopharm.Tc99m EdlyaukirMl35p Sestamibi Dose10.2mCi 33mCi Duration 15min. 15min. Img Date 12/27/2018 12/27/2018 Inj-Img [id number]. 60min. Rest Admin Site:[facility] chestAdministrator:JENNIFER Wiley Stress Admin Site: [facility] ChestAdministrator: JENNIFER Wiley STRESS DATA End Diast. Vol.102.0mlAv. Heart Rate67.0bpm End Syst. Vol.36.0mlCO Index BSA0.0L/min Myocardial Vrhh026.0gEject. Jgkrenby98.0% Stress Rates Pk. Fill Rate2.36EDV/secLVtime Pk. Fill 106.97msec Pk. Empty Rate3.27ESV/secLVtime Pk. Vgzdk019.37msec 1/3 Pk. Fill1.66EDV/sec Stress Scores Regional WT1.00Summed WT4.00 Regional WM0.00Summed WM10.00 Study quality was good. Left Ventricular size was Normal at Rest and Stress. Lung uptake was . Left Ventricular ejection fraction is 51%. The rest and stress images show normal perfusion, normal contraction and thickening. LV Perf. Quant 17 Seg. SSS0.00 17 Seg. SRS8.00 17 Seg. SDS0.00 Stress Defect Extent (% LAD)0.00Rest Defect Extent (% LAD)12.50Rev. Defect Extent (% LAD)0.00 Stress Defect Extent (% LCX) 0.00Rest Defect Extent (% LCX)12.50Rev. Defect Extent (% LCX)0.00 Stress Defect Extent (% RCA)0.00Rest Defect Extent (% RCA)10.00Rev. Defect Extent (% RCA)0.00 Stress Defect Extent (% JULIANNA)0.00Rest Defect Extent (% JULIANNA)13.50Rev. Defect Extent (% JULIANNA)0.00 Conclusion 1. Regadenoson cardioisotope stress test did not show any evidence of ischemia or infarct. 2. Normal left ventricular systolic function with ejection fraction calculated at 51%. 3. Low risk for cardiac events. Signed by : Edilberto Sarah, Electronically Approved : 12/27/2018 12:23:12
== END | disposition home or self-care (01) ==
LOC: NM 08:57
PROVIDERS: ATTEND Internal Medicine Cardiovascular Disease
DX: R07.89 Other chest pain (principal); Z85.89 Personal history of malignant neoplasm of other organs and systems
CPT/HCPCS: 78452; 93017; A9500; J2785

== ENCOUNTER 2018-12-29 13:37 | Inpatient (IN) | payer OTHER ==
[~2018-12-29] VITALS: Ht 167.6 cm; Wt 88.0 kg
[~2018-12-29 13:37] MED LIST changes: -HEPARIN PF 500 UNIT/5 ML DISP.SYRIN. IV ONE; +LINE600T12 PO; -LINE600T37 PO; -MAGN400T3 PO; +MAGN400T5 PO; +OXYB5TAB10 PO; -OXYB5TAB7 PO; -REGADENOSON 0.4 MG/5 ML DISP.SYRIN. IV ONE
[2018-12-29] MEDS ORDERED: IV NORMAL SALINE 1000ML BAG 1,000 ML IV ONE (14:15)
[2018-12-29] MEDS ORDERED: fentaNYL PF VIAL 100 MCG/2 ML VIAL IV ONE ×3 (14:15→15:45)
--- NOTE | 2018-12-29 14:34 | RAD ---
EXAM: Chest, single view. HISTORY: Shortness of breath. COMPARISON: 12/16/2018 FINDINGS: A frontal view of the chest obtained. There is a moderate left pleural effusion with lower lobe atelectasis or infiltrate, increased compared to the prior study. There is suspected right infrahilar atelectasis. There is a right port catheter with the tip in the superior vena cava. There is no pneumothorax. There is a stable prominent cardiac silhouette. IMPRESSION: 1. Increased moderate left pleural effusion with lower lobe atelectasis or infiltrate. 2. Stable right infrahilar atelectasis. Electronically signed by: Katelyn Ohara MD (12/29/2018 2:32 PM) [facility]
[2018-12-29 14:44] LABS: CLARITY,URINE CLEAR
[2018-12-29 14:45] LABS: COLOR,URINE ORANGE
[2018-12-29 14:52] LABS: BACTERIA,URINE FEW /HPF (0-FEW); RBC,URINE >40 /HPF (0-2); SQUAMOUS EPITHELIAL CELL,UR MOD /LPF; WBC,URINE OCC /HPF (0-4)
--- NOTE | 2018-12-29 16:09 | RAD ---
Study: CT cervical spine without contrast INDICATION: Atraumatic neck pain. History of malignancy. COMPARISON: Correlation is made to the CT of the neck from 09/08/2018 TECHNIQUE: Axial CT imaging of the cervical spine performed without intravenous contrast. Sagittal and coronal reformats were obtained. One or more of the following individualized dose reduction techniques were utilized for this examination: 1. Automated exposure control 2. Adjustment of the mA and/or kV according to patient size 3. Use of iterative reconstruction technique. FINDINGS: No acute or destructive osseous abnormality. Straightening of cervical lordosis with mild reversal centered across C5-C6. Scattered mild degenerative changes without severe encroachment on the central canal noting incomplete evaluation of the canal contents below C5 due to beam attenuation from the patient's shoulders. No severe bony encroachment on the neural foramina. Compared to the prior exam, worsening adenopathy scattered throughout the neck, thoracic inlet and upper mediastinum. Corrections Specialist enlarged lymph node posterior to the left sternocleidomastoid, image 38 series 2, now measuring 1.5 cm in transverse dimension compared to 1.3 cm on the prior. Conglomerate lymphadenopathy scattered about the supraclavicular region on the left, images 39 through 47 series 2, notably worsened. No mass effect on the airway. The thyroid is unremarkable. No prevertebral edema. Right internal jugular vein central venous catheter partially visualized. Left-sided pleural effusion new from the prior. Ill-defined density at the left lung apex, image 57 series 3, more suggestive of volume loss that a discrete nodule. IMPRESSION: 1. No acute osseous injury to account for the patient's symptoms. 2. Relative to the CT of the neck from 09/08/2018, generalized progression of extensive lymphadenopathy in keeping with the patient's history of a known malignancy. Lymphadenopathy is predominantly located on the left and seen throughout the neck, supra/infraclavicular regions, thoracic inlet and upper mediastinum. No mass effect on the airway. 3. Partially visualized left-sided pleural effusion, new from the comparison. Electronically signed by: STEVE MARTINEZ MD (12/29/2018 4:06 PM) [facility]
--- NOTE | 2018-12-29 16:20 | RAD ---
Exam: CT abdomen and pelvis without contrast INDICATION: Atraumatic pain. History of uterine cancer TECHNIQUE: Sequential axial images through the abdomen and pelvis obtained without IV contrast. Sagittal and coronal reformatted images were reconstructed from the axial data and reviewed. Comparisons: 12/06/2018 FINDINGS: Heart size is normal. Trace pericardial fluid. Strandy linear opacities are noted at the lung bases likely representing atelectasis. There is a moderate-sized left pleural effusion. Evaluation of solid organs is limited secondary to noncontrast technique. Liver, spleen, pancreas, gallbladder and adrenals are unremarkable. There is redemonstration of moderate right-sided hydronephrosis which appears similar when compared to the prior exam. Additionally there is pelvocaliectasis affecting the lower pole of the left kidney which is new when compared to the prior study. No renal or ureteral calculi are identified. The bladder is distended and appears thin-walled. Uterus is absent. No abnormal adnexal mass is identified. Mild wall thickening involving the rectum and sigmoid. As before there is stranding and inflammatory changes within the pelvis which overall is not significantly changed compared to the prior study. Otherwise, large and small bowel are unremarkable. There is trace free fluid, predominantly perihepatic. No free intra-abdominal air is noted. Abdominal aorta has a normal course and caliber. There is redemonstration of an enlarged left common iliac node which is similar in appearance compared to prior exam. Additionally there is a left pelvic sidewall nodule which is also unchanged from the prior exam. No suspicious osseous lesions or acute fractures. IMPRESSION: 1. Mild left-sided pelvocaliectasis which is new from the prior study, with stable moderate right-sided hydronephrosis and hydroureter. 2. Mild wall thickening involving the sigmoid and rectum, may be related to colitis. 3. There is redemonstration of inflammatory changes in the pelvis which is nonspecific and may be posttreatment related. 4. Unchanged left pelvic sidewall nodule in left common iliac node. 5. Trace free fluid in the abdomen is increased from the prior study particularly in the perihepatic region. 6. Moderate left-sided pleural effusion. Exposure: One or more of the following in the visualized dose reduction techniques were utilized for this examination: 1. Automated exposure control 2. Adjustment of the MA and/or KV according to patient size 3. Use of iterative of reconstructive technique Electronically signed by: Donaldo Osorio MD (12/29/2018 4:17 PM) [facility]
[2018-12-29] MEDS ORDERED: DOXYCYCLINE HYCLATE 100 MG in IV DEXTROSE 5% 100ML 100 ML IV ONE (16:30)
[2018-12-29] MEDS ORDERED: cefTRIAXone IV Push 1 GM VIAL. IVP ONE (16:30)
[2018-12-29] MEDS ORDERED: fentaNYL PF VIAL 100 MCG/2 ML VIAL IV PRN (16:45)
[2018-12-29] MEDS: IV NORMAL SALINE 1000ML BAG 1,000 ML IV SCH (16:54)
[2018-12-29 18:00] VITALS: BP 99/53
--- NOTE | 2018-12-29 18:00 | NUR ---
Arrived to unit by cart. Ambulated from the doorway to the bed with steady gait. Oriented x's 4. Oriented to room and controls. Side rails up x's 2 with call light in reach. IVF intact and infusing from right chest fidel cath. O2 at 2l per n/c. Cont. monitor.
--- NOTE | 2018-12-29 18:08 | PHYS DOC ---
Past Medical History Past Medical History: Anemia, Cancer, Other Additional Past Medical Histor: CERVICAL CANCER WITH METASTISIS Past Surgical History: Hysterectomy, Other Additional Past Surgical Histo: Port placement Alcohol Use: Rarely Drug Use: None Adult General Chief Complaint Chief Complaint: ABNORMAL LABS HPI HPI Patient is a 38 year old female was presenting with chief complaint of referred from oncology for abnormal labs guarding is a 4.0 baseline is around 1.4 patient has had decreased by mouth intake as well as his significant pain with urination of his long-standing basis she did have hydronephrosis on the right side on a recent CT scan December 06. She is getting immunotherapy apparently there is some increasing the past disease which is not unexpected according to Dr. Anthony olivares. No fever noted no chest pain mild shortness of breath Review of Systems Review of Systems Constitutional: Eyes: Denies change in visual acuity, redness, or eye pain [] HENT: Denies nasal congestion or sore throat [] Respiratory: D Musculoskeletal: Integument: Denies rash or skin lesions [] Neurologic: All other systems were reviewed and found to be within normal limits, except as documented in this note. Current Medications Current Medications Current Medications Medications (Trade) Dose Ordered Sig/Sanna Start Time Stop Time Status Last Admin Dose Admin Ceftriaxone Sodium (Rocephin) 1 gm 1X ONCE 12/29/18 16:30 12/29/18 16:31 DC 12/29/18 17:01 1 GM Doxycycline Hyclate 100 mg/ Dextrose 100 ml @ 50 mls/hr 1X ONCE 12/29/18 16:30 12/29/18 18:29 12/29/18 17:02 50 MLS/HR Fentanyl Citrate (Fentanyl 2ml Vial) 75 mcg 1X ONCE 12/29/18 15:45 12/29/18 15:46 DC 12/29/18 15:42 75 MCG Sodium Chloride 1,000 ml @ 1,000 mls/hr 1X ONCE 12/29/18 14:15 12/29/18 15:14 DC 12/29/18 14:27 1,000 MLS/HR Allergies Allergies Allergies Coded Allergies Type Severity Reaction Last Updated Verified shrimp Allergy Severe mouth sore 12/21/18 Yes ondansetron Adverse Reaction Severe 12/21/18 Yes Physical Exam Physical Exam Constitutional: Well developed, well nourished, no acute distress, non-toxic appearance. [] HENT: Normocephalic, atraumatic, bilateral external ears normal, oropharynx moist, no oral exudates, nose normal. [] Eyes: PERRLA, EOMI, conjunctiva normal, no discharge. [] Neck: Lymphadenopathy noted left greater than right trachea is midline no stridor Cardiovascular:Heart rate regular rhythm, no murmur [] Lungs & Thorax: Bilateral breath sounds clear to auscultation [] Abdomen: Bowel sounds normal, soft, no tenderness, no masses, no pulsatile masses. [] Skin: Mild scleral icterus Back: No tenderness, no CVA tenderness. [] Extremities: No tenderness, no cyanosis, no clubbing, ROM intact, 3+ edema bilaterally Neurologic: Alert and oriented X 3, normal motor function, normal sensory function, no focal deficits noted. [] Psychologic: Affect normal, judgement normal, mood normal. [] Current Patient Data Vital Signs Vital Signs Date Time Temp Pulse Resp B/P (MAP) Pulse Ox O2 Delivery O2 Flow Rate FiO2 12/29/18 16:28 103/56 (72) 92 Nasal Cannula 2.0 12/29/18 16:07 72 12/29/18 15:42 20 12/29/18 13:41 98.2 98.2 Lab Values Laboratory Tests Test 12/29/18 14:23 Urine Collection Type Unknown Urine Color [place] Urine Clarity Clear Urine pH Urine Specific [place] Urine Protein mg/dL (NEG-TRACE) Urine Glucose (UA) mg/dL (NEG) Urine Ketones (Stick) mg/dL (NEG) Urine Blood (NEG) Urine Nitrite (NEG) Urine Bilirubin (NEG) Urine Urobilinogen Dipstick mg/dL (0.2 mg/dL) Urine Leukocyte Esterase (NEG) Urine RBC >40 /HPF (0-2) Urine WBC Occ /HPF (0-4) Urine Squamous Epithelial Cells Mod /LPF Urine Bacteria Few /HPF (0-FEW) EKG EKG [] Radiology/Procedures Radiology/Procedures [] IMPRESSION: 1. Increased moderate left pleural effusion with lower lobe atelectasis or infiltrate. 2. Stable right infrahilar atelectasis. Electronically signed by: Katelyn Traore MD (12/29/2018 2:32 PM) [place] [id number] DICTATED and SIGNED BY: KATELYN TRAORE MD DATE: 12/29/18 1432 Impressions: IMPRESSION: 1. Mild left-sided pelvocaliectasis which is new from the prior study, with stable moderate right-sided hydronephrosis and hydroureter. 2. Mild wall thickening involving the sigmoid and rectum, may be related to colitis. 3. There is redemonstration of inflammatory changes in the pelvis which is nonspecific and may be posttreatment related. 4. Unchanged left pelvic sidewall nodule in left common iliac node. 5. Trace free fluid in the abdomen is increased from the prior study particularly in the perihepatic region. 6. Moderate left-sided pleural effusion. Exposure: One or more of the following in the visualized dose reduction techniques were utilized for this examination: 1. Automated exposure control 2. Adjustment of the MA and/or KV according to patient size 3. Use of iterative of reconstructive technique Electronically signed by: Donaldo Williamson MD (12/29/2018 4:17 PM) [facility] DICTATED and SIGNED BY: DONALDO WILLIAMSON MD DATE: 12/29/18 2229 Course & Med Decision Making Course & Med Decision Making Pertinent Labs and Imaging studies reviewed. (See chart for details) 38-year-old female presenting with renal failure [place] 4.0 baseline is 1.4 range does have new now bilateral hydronephrosis I spoke with Dr. Raines on the phone as well I also spoke with Dr. DIAMOND guerrero. I also spoke with urology wire communications engineer who recommended IR consult as a stent is unlikely to be helpful so I spoke with Dr. VELAZQUEZ at 5:30 PM plan to admit overnight likely will plan on nephrostomy tubes in the morning I gave patient antibiotics for the chest x-ray finding as well and IV fluids and pain medication and she is stable at this time with a stable potassium Dragon Disclaimer Dragon Disclaimer This electronic medical record was generated, in whole or in part, using a voice recognition dictation system. Departure Departure Impression: Primary Impression: Acute on chronic renal failure Disposition: ADMITTED INPATIENT Admitting Physician: Jeannette Martell Condition: STABLE Referrals: JEANNETTE MARTELL MD (PCP) MINISTERIO SANDY MD Dec 29, 2018 18:08
[2018-12-29] MEDS: fentaNYL PF VIAL 100 MCG/2 ML VIAL IV PRN ×3 (19:06→23:20)
--- NOTE | 2018-12-29 19:12 | PDOC2 ---
CONSULT Date of Consult Date of Consult DATE: 12/29/18 TIME: 18:59 Reason for consultation: edema w/ cervical cancer Consult: Hematology oncology, Dr. Power Raines History of present illness: Marivel is a 38-year-old female with metastatic cervical cancer, she came in with acute renal failure from ED after clinic visit, she has renal insufficiency, chronic, with acute worsening, up to Cr of 4, worsening due to underlying disease, associated with hydronephrosis and hydroureter and pelviectasis, as well as trouble breathing, worsening diffuse lymphadenopathy, and effusion. 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 Physical exam: Vitals reviewed Gen.: Well-nourished and well-developed in no acute distress HEENT: mucous membranes moist, head normocephalic atraumatic Neck: dec range of motion, lymphadenopathy diffuse greatest at left neck firm supraclavicular enlarging Lungs: Breathing comfortably on O2 w/o respiratory distress Abdomen: Soft, nd, no rebound, sl diffuse TTP Extremities: No cyanosis, does have LE edema bilateral left greater than right Skin: No obvious rashes or skin breakdown Neuro: Alert and oriented 3 Psych: pleasant mood and affect Lab reviewed: Hemoglobin 9.2, platelets and white count normal, potassium 4, magnesium 2.2 creatinine 4.0 Lactic acid 0.6 Rads reviewed: 06 December L-spine and abdomen pelvis and CT angio chest noted new enlarged lymph nodes pulmonary though this was compared to April scan, trace pericardial effusion, small left effusion, 5 mm right upper lobe nodule, and compared to the September 2018 scan bladder and sigmoid inflammatory changes, minimal increase in right hydronephrosis, right pelvic sidewall lymph node minimally increased to 1.4 cm Bilateral lower extremity ultrasounds in November negative for DVT CT abdomen and pelvis 09/16/18, with no change in retroperitoneal and iliac adenopathy, unchanged presacral fat induration and perirectal fat induration, mild bladder wall thickening suggests cystitis CT abdomen and pelvis and neck 29 December 2018 showed mild left pelvicaliectasis new, moderate right hydronephrosis hydroureter, mild thickening of sigmoid and rectum, pelvic inflammatory postop changes, trace free fluid in the abdomen, moderate left effusion, extensive cervical and mediastinal lymphadenopathy Case discussed with: Patient, records reviewed in [facility] and [facility], including labs and radiology, please see note for summary details Assessment and Plan: Marivel is a 38-year-old female with metastatic cervical cancer, on pembrolizumab, admitted with clinically progressive disease and renal failure Renal failure: Appreciate urology input, getting hydration, may need nephrostomy tube versus other? Pleural effusion with slight hypoxia: We will recommend chest x-ray in the morning and would consider thoracentesis as needed, slight hypoxia requiring oxygen Lower extremity edema: Left greater than right, chronic, improved since recently, ultrasounds have been negative for clot recently, can use compression stockings as needed, was to get outpatient stress test after last admit Metastatic cervical cancer: Clinically progressive disease, no clinical trial available at , (potential vaccine trial, she would have to travel likely [id number], renal function likely would preclude) could consider next line gemcitabine days 1 and 8 and 15 q 28 versus palliative care. We will continue her methadone 7.5 mg 3 times a day and she would like fentanyl 75 g every 2 hours, if this doesn't adequately treat her pain could consider GAS ENGINE MECHANIC, will add Colace and MiraLAX when necessary. Fentanyl 50 did not adequately treat the pain at recent admit, morphine causes nausea and mental status changes. Prophylaxis: heparin prophylaxis can be added if not getting procedures Recent rectal bleeding: was pending colonoscopy as outpatient after recent admit, scans suggest possible colitis, bowels fine currently, per her report Disposition: After continued clinical improvement, appreciate multidisciplinary care Thank you kindly for this consultation, and please don't hesitate to call with any further questions. Past Medical History Cardiovascular: HTN Pulmonary: No pertinent hx CENTRAL NERVOUS SYSTEM: Other GI: GERD Heme/Onc: Anemia NOS, Cancer Hepatobiliary: No pertinent hx Psych: No pertinent hx Musculoskeletal: Other Rheumatologic: No pertinent hx Infectious disease: No pertinent hx Renal/: UTI Endocrine: No pertinent hx Past Surgical History Past Surgical History: Hysterectomy, Other Family History Family History: Coronary Artery Disease Social History ALCOHOL: none Drugs: None Lives: with Family Current Medications Current Medications Current Medications Sodium Chloride 1,000 ml @ 1,000 mls/hr 1X ONCE IV Last administered on 12/29/18 14:27; Start 12/29/18 at 14:15; Stop 12/29/18 at 15:14; Status DC Fentanyl Citrate (Fentanyl 2ml Vial) 50 mcg 1X ONCE IV Last administered on 12/29/18at 14:31; Start 12/29/18 at 14:15; Stop 12/29/18 at 14:16; Status DC Fentanyl Citrate (Fentanyl 2ml Vial) 75 mcg 1X ONCE IV Last administered on 12/29/18at 15:09; Start 12/29/18 at 15:15; Stop 12/29/18 at 15:16; Status DC Fentanyl Citrate (Fentanyl 2ml Vial) 75 mcg 1X ONCE IV Last administered on 12/29/18at 15:42; Start 12/29/18 at 15:45; Stop 12/29/18 at 15:46; Status DC Ceftriaxone Sodium (Rocephin) 1 gm 1X ONCE IVP Last administered on 12/29/18 17:01; Start 12/29/18 at 16:30; Stop 12/29/18 at 16:31; Status DC Doxycycline Hyclate 100 mg/ Dextrose 100 ml @ 50 mls/hr 1X ONCE IV Last administered on 12/29/18 17:02; Start 12/29/18 at 16:30; Stop 12/29/18 at 18:29; Status DC Fentanyl Citrate (Fentanyl 2ml Vial) 50 mcg PRN Q1HR PRN IV PAIN Last administered on 12/29/18at 16:53; Start 12/29/18 at 16:45; Stop 12/29/18 at 18:55; Status DC Sodium Chloride 1,000 ml @ 100 mls/hr Q10H IV Last administered on 12/29/18 16:54; Start 12/29/18 at 16:31; Stop 12/30/18 at 16:30 Fentanyl Citrate (Fentanyl 2ml Vial) 75 mcg Q2HR PRN IV PAIN; Start 12/29/18 at 19:00 Active Scripts Active Klor-Con M20 (Potassium Chloride) 20 Meq Tab.er.prt 20 Meq PO DAILY 30 Days Polyethylene Glycol 3350 17 Gm Powd.pack 17 Gm PO PRN DAILY PRN 30 Days Colace (Docusate Sodium) 100 Mg Capsule 100 Mg PO DAILY MDD 30 30 Days Reported Keytruda (Pembrolizumab) 100 Mg/4 Ml Vial Unknown Dose IV WEEKLY Methadone Hcl 5 Mg Tablet 1.5 Tab PO Q8HRS Oxycodone Hcl 5 Mg Capsule 1-3 Tab PO PRN Q3HRS PRN Lisinopril 20 Mg Tablet 10 Mg PO DAILY Gabapentin 600 Mg Tablet 600 Mg PO BID Prevacid (Lansoprazole) 30 Mg Capsule.dr 30 Mg PO DAILY Cyclobenzaprine Hcl 10 Mg Tablet 10 Mg PO PRN TID PRN Phenergan (Promethazine HCl) 12.5 Mg Supp.rect 12.5 Mg RC PRN Q12HR PRN Ambien (Zolpidem Tartrate) 5 Mg Tablet 1 Tab PO QHS PRN Allergies Allergies: Coded Allergies: shrimp (Verified Allergy, Severe, mouth sore, 12/21/18) ondansetron (Verified Adverse Reaction, Severe, 12/21/18) reaction with chemo Vitals VITALS Vital Signs Date Time Temp Pulse Resp B/P (MAP) Pulse Ox O2 Delivery O2 Flow Rate FiO2 12/29/18 18:00 98.4 68 16 99/53 (68) 93 Room Air 2.0 98.4 Labs Labs Laboratory Tests Test 12/29/18 14:23 12/29/18 16:40 Urine Collection Type Unknown Urine Color [place] Urine Clarity Clear Urine pH Urine Specific [place] Urine Protein mg/dL (NEG-TRACE) Urine Glucose (UA) mg/dL (NEG) Urine Ketones (Stick) mg/dL (NEG) Urine Blood (NEG) Urine Nitrite (NEG) Urine Bilirubin (NEG) Urine Urobilinogen Dipstick mg/dL (0.2 mg/dL) Urine Leukocyte Esterase (NEG) Urine RBC >40 /HPF (0-2) Urine WBC Occ /HPF (0-4) Urine Squamous Epithelial Cells Mod /LPF Urine Bacteria Few /HPF (0-FEW) Lactic Acid Level 0.6 mmol/L (0.4-2.0) Laboratory Tests Test 12/29/18 14:23 12/29/18 16:40 Urine Collection Type Unknown Urine Color [place] Urine Clarity Clear Urine pH Urine Specific [place] Urine Protein mg/dL (NEG-TRACE) Urine Glucose (UA) mg/dL (NEG) Urine Ketones (Stick) mg/dL (NEG) Urine Blood (NEG) Urine Nitrite (NEG) Urine Bilirubin (NEG) Urine Urobilinogen Dipstick mg/dL (0.2 mg/dL) Urine Leukocyte Esterase (NEG) Urine RBC >40 /HPF (0-2) Urine WBC Occ /HPF (0-4) Urine Squamous Epithelial Cells Mod /LPF Urine Bacteria Few /HPF (0-FEW) Lactic Acid Level 0.6 mmol/L (0.4-2.0) POWER RAINES MD Dec 29, 2018 19:12
[2018-12-29] MEDS ORDERED: POLYETHYLENE GLYCOL 3350 17 GM PACKET. PO PRN (19:15)
[2018-12-29] MEDS ORDERED: DOCUSATE SODIUM 100 MG CAPSULE. PO PRN (19:15)
--- NOTE | 2018-12-29 19:45 | PDOC2 ---
CHASE PETER MD 12/29/181944: UROLOGY CONSULT Date of Admission DATE: 12/29/18 TIME: 19:26 Incidental worsening CKD during routine labs for Keytruda, cr 4 from baseline 2 from last month. Hx of met cervical ca s.p hysterectomy/chemo/rt. 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 No flank, groin pain. Has chest and shoulder pain. No gh, no dysuria. CT a/p with stable right hydro from 09/2018, new mild left hydro. Ua w few bacteria. ROS ROS: RESPIRATORY: Shortness of breath denies. Cough denies. UROLOGY: Denies blood in urine. Denies difficulty urinating Past Surgical History: Cystoscopy, Hysterectomy Current Medications Current Medications Sodium Chloride 1,000 ml @ 1,000 mls/hr 1X ONCE IV Last administered on 12/29/18at 14:27; Start 12/29/18 at 14:15; Stop 12/29/18 at 15:14; Status DC Fentanyl Citrate (Fentanyl 2ml Vial) 50 mcg 1X ONCE IV Last administered on 12/29/18at 14:31; Start 12/29/18 at 14:15; Stop 12/29/18 at 14:16; Status DC Fentanyl Citrate (Fentanyl 2ml Vial) 75 mcg 1X ONCE IV Last administered on 12/29/18at 15:09; Start 12/29/18 at 15:15; Stop 12/29/18 at 15:16; Status DC Fentanyl Citrate (Fentanyl 2ml Vial) 75 mcg 1X ONCE IV Last administered on 12/29/18at 15:42; Start 12/29/18 at 15:45; Stop 12/29/18 at 15:46; Status DC Ceftriaxone Sodium (Rocephin) 1 gm 1X ONCE IVP Last administered on 12/29/18at 17:01; Start 12/29/18 at 16:30; Stop 12/29/18 at 16:31; Status DC Doxycycline Hyclate 100 mg/ Dextrose 100 ml @ 50 mls/hr 1X ONCE IV Last administered on 12/29/18at 17:02; Start 12/29/18 at 16:30; Stop 12/29/18 at 18:29; Status DC Fentanyl Citrate (Fentanyl 2ml Vial) 50 mcg PRN Q1HR PRN IV PAIN Last administered on 12/29/18at 16:53; Start 12/29/18 at 16:45; Stop 12/29/18 at 18:55; Status DC Sodium Chloride 1,000 ml @ 100 mls/hr Q10H IV Last administered on 12/29/18at 16:54; Start 12/29/18 at 16:31; Stop 12/30/18 at 16:30 Fentanyl Citrate (Fentanyl 2ml Vial) 75 mcg Q2HR PRN IV PAIN Last administered on 12/29/18at 19:06; Start 12/29/18 at 19:00 Methadone HCl (Dolophine) 7.5 mg Q8HRS PO ; Start 12/29/18 at 22:00; Status UNV Methadone HCl (Dolophine) 7.5 mg Q8HRS PO ; Start 12/29/18 at 22:00 Docusate Sodium (Colace) 100 mg BID PRN PO HARD STOOLS; Start 12/29/18 at 19:15 Polyethylene Glycol (miraLAX PACKET) 17 gm PRN DAILY PRN PO CONSTIPATION; Start 12/29/18 at 19:15 Active Scripts Active Klor-Con M20 (Potassium Chloride) 20 Meq Tab.er.prt 20 Meq PO DAILY 30 Days Polyethylene Glycol 3350 17 Gm Powd.pack 17 Gm PO PRN DAILY PRN 30 Days Colace (Docusate Sodium) 100 Mg Capsule 100 Mg PO DAILY MDD 30 30 Days Reported Keytruda (Pembrolizumab) 100 Mg/4 Ml Vial Unknown Dose IV WEEKLY Methadone Hcl 5 Mg Tablet 1.5 Tab PO Q8HRS Oxycodone Hcl 5 Mg Capsule 1-3 Tab PO PRN Q3HRS PRN Lisinopril 20 Mg Tablet 10 Mg PO DAILY Gabapentin 600 Mg Tablet 600 Mg PO BID Prevacid (Lansoprazole) 30 Mg Capsule.dr 30 Mg PO DAILY Cyclobenzaprine Hcl 10 Mg Tablet 10 Mg PO PRN TID PRN Phenergan (Promethazine HCl) 12.5 Mg Supp.rect 12.5 Mg RC PRN Q12HR PRN Ambien (Zolpidem Tartrate) 5 Mg Tablet 1 Tab PO QHS PRN Allergies: Coded Allergies: shrimp (Verified Allergy, Severe, mouth sore, 12/21/18) ondansetron (Verified Adverse Reaction, Severe, 12/21/18) reaction with chemo Physical Examination PHYSICAL EXAMINATION: GENERAL: Gen. appearance: No acute distress. Mood/affect: Pleasant. HEENT: Head: Normocephalic, atraumatic. Airway Impairment: No. CHEST: Shape and expansion: Normal. Expansion: Normal. SKIN: General: Warm. Color: Good. GENITOURINARY:External genitalia - wnl. NEUROLOGICAL: Mental status: Alert and oriented 3. Language: Normal. DOES THIS PATIENT HAVE URINARY: No VITALS Vital Signs Date Time Temp Pulse Resp B/P (MAP) Pulse Ox O2 Delivery O2 Flow Rate FiO2 12/29/18 19:06 Nasal Cannula 2.0 12/29/18 18:00 98.4 68 16 99/53 (68) 93 98.4 Labs Laboratory Tests Test 12/29/18 14:23 12/29/18 16:40 Urine Collection Type Unknown Urine Color [place] Urine Clarity Clear Urine pH Urine Specific [place] Urine Protein mg/dL (NEG-TRACE) Urine Glucose (UA) mg/dL (NEG) Urine Ketones (Stick) mg/dL (NEG) Urine Blood (NEG) Urine Nitrite (NEG) Urine Bilirubin (NEG) Urine Urobilinogen Dipstick mg/dL (0.2 mg/dL) Urine Leukocyte Esterase (NEG) Urine RBC >40 /HPF (0-2) Urine WBC Occ /HPF (0-4) Urine Squamous Epithelial Cells Mod /LPF Urine Bacteria Few /HPF (0-FEW) Lactic Acid Level 0.6 mmol/L (0.4-2.0) Laboratory Tests Test 12/29/18 14:23 12/29/18 16:40 Urine Collection Type Unknown Urine Color [place] Urine Clarity Clear Urine pH Urine Specific [place] Urine Protein mg/dL (NEG-TRACE) Urine Glucose (UA) mg/dL (NEG) Urine Ketones (Stick) mg/dL (NEG) Urine Blood (NEG) Urine Nitrite (NEG) Urine Bilirubin (NEG) Urine Urobilinogen Dipstick mg/dL (0.2 mg/dL) Urine Leukocyte Esterase (NEG) Urine RBC >40 /HPF (0-2) Urine WBC Occ /HPF (0-4) Urine Squamous Epithelial Cells Mod /LPF Urine Bacteria Few /HPF (0-FEW) Lactic Acid Level 0.6 mmol/L (0.4-2.0) Images Images reviewed by myself. Assessment/Plan Bl hydro. CKD. met cervical SCC. Recommend ivf, abx coverage. Establish trend with bmp in am. ucx next given bacteruria and hydro. [place] looks pretty stable. Not sure if new mild hydro could worsen her renal function by 50%. She might also have nephrotoxic effect from Keytruda. Recommend Nephrology referral. Stent v NT are discussed. In setting of pelvic malignancy, stent have higher failure rate, more voiding symptoms. NT has more technical success, but higher exchange rate, need for external collection, etc. Both have very minimal survival advantage. Would do either if plans for more chemo in immediate future. ROMERO CASEY MD 01/01/19 1238: UROLOGY CONSULT Assessment/Plan Patient not a candidate for ureteral stents - unable to locate ureteral orifices on previous cystoscopy due to cervical cancer invading the bladder. If she desires renal drainage, nephrostomy tubes are her only option. CHASE PETER MD Dec 29, 2018 19:45 ROMERO CASEY MD Jan 01, 2019 12:38
[2018-12-29 19:50] VITALS: BP 129/67
--- NOTE | 2018-12-29 20:30 | NUR ---
ADMIT NOTE The patient, AAMIR METCALF, 38 y/o, F admitted by ALYSSA MARTELL MD, was given written information regarding hospital policies, unit procedures and contact persons. Patient on 2L NC but afebrile and other VSS upon admission to unit. Report received from ELIDA Kelly and patient orientated to room. Patient's plan of care discussed, admit packet reviewed, home medications/allergies verified and admission assessment complete. Patient in bed at this time, call light within reach and family at bedside, will continue to monitor.
[2018-12-29] MEDS ORDERED: METHADONE (DAILY MAINT DOSE) 100 MG/100 ML SOLUTION PO SCH (22:00)
[2018-12-29] MEDS: METHADONE 5 MG TABLET. PO SCH (22:03)
[2018-12-29 23:36] LABS: HEMATOCRIT 24.9 % (36.0-47.0); HEMOGLOBIN 8.1 g/dL (12.0-15.5); RED BLOOD COUNT 3.05 x10^6/uL (3.50-5.40); RED CELL DISTRIBUTION WIDTH 17.2 % (11.5-14.5); WHITE BLOOD COUNT 5.3 x10^3/uL (4.0-11.0)
[2018-12-29 23:45] LABS: PROTHROMBIN TIME PATIENT 14.6 SEC (11.7-14.0)
[2018-12-29 23:49] LABS: CALCIUM 8.8 mg/dL (8.5-10.1); CREATININE 3.7 mg/dL (0.6-1.0); GFR 13.7; POTASSIUM 3.9 mmol/L (3.5-5.1)
[2018-12-29 23:50] VITALS: BP 111/64
[2018-12-30] MEDS: fentaNYL PF VIAL 100 MCG/2 ML VIAL IV PRN ×9 (02:00→23:49)
[2018-12-30] MEDS: IV NORMAL SALINE 1000ML BAG 1,000 ML IV SCH ×2 (02:00→12:31)
[2018-12-30 03:50] VITALS: BP 116/55
[2018-12-30] MEDS: METHADONE 5 MG TABLET. PO SCH ×3 (06:09→21:48)
[2018-12-30 06:38] LABS: CALCIUM 8.6 mg/dL (8.5-10.1); CREATININE 3.5 mg/dL (0.6-1.0); GFR 14.6; POTASSIUM 3.7 mmol/L (3.5-5.1)
[2018-12-30 07:00] VITALS: BP 104/50
--- NOTE | 2018-12-30 08:42 | PDOC ---
PROGRESS NOTES Subjective Subjective Patient feels she is doing OK, pain controlled with q 2 hr Fentanyl. Objective Objective Vital Signs Date Time Temp Pulse Resp B/P (MAP) Pulse Ox O2 Delivery O2 Flow Rate FiO2 12/30/18 07:08 16 95 Nasal Cannula 2.0 12/30/18 07:00 98.4 66 104/50 (68) 98.4 Intake and Output 12/30/18 07:00 Intake Total 1850 ml Output Total 1250 ml Balance 600 ml Intake Oral 850 ml IV Total 1000 ml Output Urine Total 1250 ml # Voids 1 # Bowel Movements 1 Physical Exam Abdomen: Normal bowel sounds, Soft, No tenderness Heart: Regular rate Extremities: Other (1+ edema bilateral LE's) General: Alert, Oriented X3, No acute distress Lungs: Clear to auscultation Plan Plan of Care 1. Acute renal failure with CKD III - side effect of Keytruda vs increased obstruction from pelvic lymphadenopathy. Mildly improved overnight with IVF, continue. Moderate known R hydronephrosis appears stable on CT, new mild L pelvocaliectasis seen but unclear if this is sufficient to elevate her creatinine. Patient not really interested in considering nephrostomy tube at this time. Follow lab. 2. possible UTI - WBC's present on UA but also moderate squamous cells. Urine culture ordered. 3. metastatic cervical cancer - slowly worsening. Keytruda on hold now per Dr Raines. Continue pain management. 4. L pleural effusion - new finding. Patient is not hypoxic on RA. Comment Review of Relevant I have reviewed the following items heather (where applicable) has been applied. Labs Laboratory Tests Test 12/29/18 14:23 12/29/18 16:40 12/29/18 23:30 12/30/18 06:15 Urine Collection Type Unknown Urine Color [place] Urine Clarity Clear Urine pH Urine Specific [place] Urine Protein mg/dL (NEG-TRACE) Urine Glucose (UA) mg/dL (NEG) Urine Ketones (Stick) mg/dL (NEG) Urine Blood (NEG) Urine Nitrite (NEG) Urine Bilirubin (NEG) Urine Urobilinogen Dipstick mg/dL (0.2 mg/dL) Urine Leukocyte Esterase (NEG) Urine RBC >40 /HPF (0-2) Urine WBC Occ /HPF (0-4) Urine Squamous Epithelial Cells Mod /LPF Urine Bacteria Few /HPF (0-FEW) Lactic Acid Level 0.6 mmol/L (0.4-2.0) White Blood Count 5.3 x10^3/uL (4.0-11.0) Red Blood Count 3.05 x10^6/uL (3.50-5.40) Hemoglobin 8.1 g/dL (12.0-15.5) Hematocrit 24.9 % (36.0-47.0) Mean Corpuscular Volume 82 fL (79-100) Mean Corpuscular Hemoglobin 27 pg (25-35) Mean Corpuscular Hemoglobin Concent 33 g/dL (31-37) Red Cell Distribution Width 17.2 % (11.5-14.5) Platelet Count 229 x10^3/uL (140-400) Prothrombin Time 14.6 SEC (11.7-14.0) Prothromb Time International Ratio 1.2 (0.8-1.1) Sodium Level 140 mmol/L (136-145) 142 mmol/L (136-145) Potassium Level 3.9 mmol/L (3.5-5.1) 3.7 mmol/L (3.5-5.1) Chloride Level 105 mmol/L (98-107) 109 mmol/L (98-107) Carbon Dioxide Level 25 mmol/L (21-32) 25 mmol/L (21-32) Anion Gap 10 (6-14) 8 (6-14) Blood Urea Nitrogen 33 mg/dL (7-20) 30 mg/dL (7-20) Creatinine 3.7 mg/dL (0.6-1.0) 3.5 mg/dL (0.6-1.0) Estimated GFR (Cockcroft-Gault) 13.7 14.6 Glucose Level 107 mg/dL (70-99) 95 mg/dL (70-99) Calcium Level 8.8 mg/dL (8.5-10.1) 8.6 mg/dL (8.5-10.1) Laboratory Tests Test 12/29/18 14:23 12/29/18 16:40 12/29/18 23:30 12/30/18 06:15 Urine Collection Type Unknown Urine Color [place] Urine Clarity Clear Urine pH Urine Specific [place] Urine Protein mg/dL (NEG-TRACE) Urine Glucose (UA) mg/dL (NEG) Urine Ketones (Stick) mg/dL (NEG) Urine Blood (NEG) Urine Nitrite (NEG) Urine Bilirubin (NEG) Urine Urobilinogen Dipstick mg/dL (0.2 mg/dL) Urine Leukocyte Esterase (NEG) Urine RBC >40 /HPF (0-2) Urine WBC Occ /HPF (0-4) Urine Squamous Epithelial Cells Mod /LPF Urine Bacteria Few /HPF (0-FEW) Lactic Acid Level 0.6 mmol/L (0.4-2.0) White Blood Count 5.3 x10^3/uL (4.0-11.0) Red Blood Count 3.05 x10^6/uL (3.50-5.40) Hemoglobin 8.1 g/dL (12.0-15.5) Hematocrit 24.9 % (36.0-47.0) Mean Corpuscular Volume 82 fL (79-100) Mean Corpuscular Hemoglobin 27 pg (25-35) Mean Corpuscular Hemoglobin Concent 33 g/dL (31-37) Red Cell Distribution Width 17.2 % (11.5-14.5) Platelet Count 229 x10^3/uL (140-400) Prothrombin Time 14.6 SEC (11.7-14.0) Prothromb Time International Ratio 1.2 (0.8-1.1) Sodium Level 140 mmol/L (136-145) 142 mmol/L (136-145) Potassium Level 3.9 mmol/L (3.5-5.1) 3.7 mmol/L (3.5-5.1) Chloride Level 105 mmol/L (98-107) 109 mmol/L (98-107) Carbon Dioxide Level 25 mmol/L (21-32) 25 mmol/L (21-32) Anion Gap 10 (6-14) 8 (6-14) Blood Urea Nitrogen 33 mg/dL (7-20) 30 mg/dL (7-20) Creatinine 3.7 mg/dL (0.6-1.0) 3.5 mg/dL (0.6-1.0) Estimated GFR (Cockcroft-Gault) 13.7 14.6 Glucose Level 107 mg/dL (70-99) 95 mg/dL (70-99) Calcium Level 8.8 mg/dL (8.5-10.1) 8.6 mg/dL (8.5-10.1) Medications Current Medications Sodium Chloride 1,000 ml @ 1,000 mls/hr 1X ONCE IV Last administered on 12/29/18 14:27; Start 12/29/18 at 14:15; Stop 12/29/18 at 15:14; Status DC Fentanyl Citrate (Fentanyl 2ml Vial) 50 mcg 1X ONCE IV Last administered on 12/29/18at 14:31; Start 12/29/18 at 14:15; Stop 12/29/18 at 14:16; Status DC Fentanyl Citrate (Fentanyl 2ml Vial) 75 mcg 1X ONCE IV Last administered on 12/29/18 15:09; Start 12/29/18 at 15:15; Stop 12/29/18 at 15:16; Status DC Fentanyl Citrate (Fentanyl 2ml Vial) 75 mcg 1X ONCE IV Last administered on 12/29/18at 15:42; Start 12/29/18 at 15:45; Stop 12/29/18 at 15:46; Status DC Ceftriaxone Sodium (Rocephin) 1 gm 1X ONCE IVP Last administered on 12/29/18 17:01; Start 12/29/18 at 16:30; Stop 12/29/18 at 16:31; Status DC Doxycycline Hyclate 100 mg/ Dextrose 100 ml @ 50 mls/hr 1X ONCE IV Last administered on 12/29/18 17:02; Start 12/29/18 at 16:30; Stop 12/29/18 at 18:29 ; Status DC Fentanyl Citrate (Fentanyl 2ml Vial) 50 mcg PRN Q1HR PRN IV PAIN Last administered on 12/29/18 16:53; Start 12/29/18 at 16:45; Stop 12/29/18 at 18:55; Status DC Sodium Chloride 1,000 ml @ 100 mls/hr Q10H IV Last administered on 12/30/18at 02:00; Start 12/29/18 at 16:31; Stop 12/30/18 at 16:30 Fentanyl Citrate (Fentanyl 2ml Vial) 75 mcg Q2HR PRN IV PAIN Last administered on 12/30/18at 06:37; Start 12/29/18 at 19:00 Methadone HCl (Dolophine) 7.5 mg Q8HRS PO ; Start 12/29/18 at 22:00; Status UNV Methadone HCl (Dolophine) 7.5 mg Q8HRS PO Last administered on 12/30/18at 06:09; Start 12/29/18 at 22:00 Docusate Sodium (Colace) 100 mg BID PRN PO HARD STOOLS; Start 12/29/18 at 19:15 Polyethylene Glycol (miraLAX PACKET) 17 gm PRN DAILY PRN PO CONSTIPATION; Start 12/29/18 at 19:15 Pharmacy Consult (C.diff Med Screen By Rx) 1 each 1X ONCE [facility] ; Start 12/30/18 at 09:00; Stop 12/30/18 at 09:01 Active Scripts Active Klor-Con M20 (Potassium Chloride) 20 Meq Tab.er.prt 20 Meq PO DAILY 30 Days Polyethylene Glycol 3350 17 Gm Powd.pack 17 Gm PO PRN DAILY PRN 30 Days Colace (Docusate Sodium) 100 Mg Capsule 100 Mg PO DAILY MDD 30 30 Days Reported Keytruda (Pembrolizumab) 100 Mg/4 Ml Vial Unknown Dose IV WEEKLY Methadone Hcl 5 Mg Tablet 1.5 Tab PO Q8HRS Oxycodone Hcl 5 Mg Capsule 1-3 Tab PO PRN Q3HRS PRN Lisinopril 20 Mg Tablet 10 Mg PO DAILY Gabapentin 600 Mg Tablet 600 Mg PO BID Prevacid (Lansoprazole) 30 Mg Capsule.dr 30 Mg PO DAILY Cyclobenzaprine Hcl 10 Mg Tablet 10 Mg PO PRN TID PRN Phenergan (Promethazine HCl) 12.5 Mg Supp.rect 12.5 Mg RC PRN Q12HR PRN Ambien (Zolpidem Tartrate) 5 Mg Tablet 1 Tab PO QHS PRN Vitals/I & O Vital Sign - Last 24 Hours 12/29/18 12/29/18 12/29/18 12/29/18 13:41 14:31 14:58 15:09 Temp 98.2 98.2 Pulse 89 86 Resp 20 20 20 B/P (MAP) 108/59 (75) 119/58 (78) Pulse Ox 93 90 91 90 O2 Delivery Room Air Room Air Nasal Cannula Room Air O2 Flow Rate 2.0 12/29/18 12/29/18 12/29/18 12/29/18 15:26 15:42 16:07 16:28 Pulse 72 72 Resp 20 B/P (MAP) 114/57 (76) 124/65 (84) 103/56 (72) Pulse Ox 91 91 95 92 O2 Delivery Nasal Cannula Nasal Cannula Nasal Cannula O2 Flow Rate 2.0 2.0 2.0 2.0 12/29/18 12/29/18 12/29/18 12/29/18 16:53 16:56 17:26 18:00 Temp 98.4 98.4 Pulse 72 76 68 Resp 20 16 B/P (MAP) 107/56 (73) 106/57 (73) 99/53 (68) Pulse Ox 91 92 93 93 O2 Delivery Nasal Cannula Nasal Cannula Nasal Cannula Room Air O2 Flow Rate 2.0 2.0 2.0 2.0 12/29/18 12/29/18 12/29/18 12/29/18 19:06 19:40 19:50 20:30 Temp 98.4 98.4 Pulse 80 Resp 16 20 B/P (MAP) 129/67 (87) Pulse Ox 92 92 O2 Delivery Nasal Cannula Nasal Cannula Room Air Nasal Cannula O2 Flow Rate 2.0 2.0 2.0 12/29/18 12/29/18 12/29/18 12/29/18 21:09 22:03 22:03 23:20 Resp 16 16 16 16 Pulse Ox 92 92 92 O2 Delivery Nasal Cannula Nasal Cannula Nasal Cannula O2 Flow Rate 2.0 2.0 2.0 2.0 12/29/18 12/29/18 12/29/18 12/30/18 23:20 23:50 23:59 02:00 Temp 99.0 99.0 Pulse 83 Resp 16 18 16 16 B/P (MAP) 111/64 (80) Pulse Ox 93 93 93 93 O2 Delivery Nasal Cannula Room Air Nasal Cannula Nasal Cannula O2 Flow Rate 2.0 2.0 2.0 12/30/18 12/30/18 12/30/18 12/30/18 02:30 03:50 04:02 04:45 Temp 98.2 98.2 Pulse 61 Resp 18 20 18 16 B/P (MAP) 116/55 (75) Pulse Ox 93 95 95 95 O2 Delivery Nasal Cannula Room Air Nasal Cannula Nasal Cannula O2 Flow Rate 2.0 2.0 2.0 12/30/18 12/30/18 12/30/18 12/30/18 06:09 06:37 07:00 07:08 Temp 98.4 98.4 Pulse 66 Resp 18 16 16 16 B/P (MAP) 104/50 (68) Pulse Ox 95 95 92 95 O2 Delivery Nasal Cannula Nasal Cannula Nasal Cannula Nasal Cannula O2 Flow Rate 2.0 2.0 2.0 2.0 12/30/18 07:08 Resp 16 Pulse Ox 95 O2 Delivery Nasal Cannula O2 Flow Rate 2.0 Intake and Output 12/29/18 12/29/18 12/30/18 15:00 23:00 07:00 Intake Total 1000 ml 850 ml Output Total 1250 ml Balance 1000 ml -400 ml ALYSSA MARTELL MD Dec 30, 2018 08:41
[2018-12-30] MEDS ORDERED: C.DIFF MED SCREEN BY RX. MC ONE (09:00)
[2018-12-30] MEDS ORDERED: LISINOPRIL 10 MG TABLET PO SCH (09:00)
[2018-12-30] MEDS ORDERED: POLYETHYLENE GLYCOL 3350 17 GM PACKET. PO PRN (09:00)
--- NOTE | 2018-12-30 09:11 | HP ---
ADMIT DATE: CHIEF COMPLAINT: Renal failure. HISTORY OF PRESENT ILLNESS: The patient is a 38-year-old female with metastatic cervical cancer who is presently on treatment with Keytruda. She was sent to the Emergency Room by Dr. Raines after lab at her office showed the patient's creatinine to be significantly elevated. The patient has a history of chronic kidney disease stage 3 from her known right hydronephrosis due to pelvic lymphadenopathy. Initial lab in the Emergency Room showed a creatinine of 3.7 and the patient was admitted for further care. PAST MEDICAL HISTORY: Metastatic cervical cancer with mets to the bladder, sigmoid colon and the mediastinum; hypertension; chronic anemia; chronic kidney disease stage 3. PAST SURGICAL HISTORY: TAHBSO. ALLERGIES: THE PATIENT IS ALLERGIC TO ZOFRAN. HOME MEDICATIONS: Flexeril p.r.n., Colace daily, gabapentin 600 mg b.i.d., Prevacid 30 mg daily, lisinopril 10 mg daily, methadone 5 mg 1-1/2 tablets q. 8 hours p.r.n., oxycodone 5 mg 1-3 q. 3 hours p.r.n., Keytruda once every 21 days, MiraLax p.r.n., potassium 20 mEq daily, Phenergan p.r.n., Ambien 5 mg at bedtime. FAMILY HISTORY: Noncontributory. SOCIAL HISTORY: The patient is to a same sex partner. She has not smoked cigarettes in over a year. 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 REVIEW OF SYSTEMS: The patient denies fever or chills. She denies cough or shortness of breath. She has had some musculoskeletal anterior chest wall pain recently. She denies abdominal pain, nausea or vomiting. She denies constipation. She has chronic lower extremity edema, which has not worsened recently. PHYSICAL EXAMINATION: GENERAL: The patient is alert and oriented x 3, resting comfortably in bed in no acute distress. HEENT: PERRL, EOMI, sclerae clear. Oropharynx: Mucous membranes moist. NECK: Supple, without lymphadenopathy. CHEST: Clear to auscultation. Decreased breath sounds in the left base. CARDIOVASCULAR: Regular rhythm. ABDOMEN: Soft, nontender, normoactive bowel sounds are present. EXTREMITIES: Bilateral lower extremities have 1+ edema. ASSESSMENT AND PLAN: 1. Acute renal failure with chronic kidney disease 3. This could be due to the side effect of Keytruda versus increased obstruction from pelvic lymphadenopathy. Her lab has mildly improved overnight with IV fluids and we will continue this. Her moderate known right hydronephrosis appears stable on the CT. There is new mild left pelvocaliectasis seen, but unclear if this is sufficient to elevate her creatinine. The patient has been seen by Urology. A nephrostomy tube was discussed as possible treatment, but Urology does not recommend this at this time and the patient is not interested in this. We will continue fluids and follow her lab. A consult with Nephrology is pending. 2. Possible urinary tract infection. Urine at admission had occasional wbc's with over 40 rbc's, moderate squamous epithelial cells were also present. A culture has been ordered and we will treat if infection is present. 3. Metastatic cervical cancer. This is slowly worsening. Keytruda is on hold now per Dr. Raines. The patient is moderately anemic with a hemoglobin of 8.1. This is not significantly changed from recent admissions. Continue pain management per Dr. Raines. The patient is taking oral methadone and using frequent IV fentanyl while she is hospitalized. 4. Left pleural effusion. This is a new finding for her. She is not hypoxic on room air and does not appear symptomatic at this time. ALYSSA MARTELL MD DR: HARJIT/kristopher JOB#: [id number] / [id number] BENIGNO
--- NOTE | 2018-12-30 09:25 | NUR ---
Pharmacy Medication Review S: Consulted for medication review re: C.diff Risk Assessment score of 5 O: AAMIR METCALF is a 38 year old with: Previous C.diff infection: <1yr ago Previous hospitalization: Within 30 days Recent antibiotics: No Use of gastric acid suppressor: Yes Transfer from [place]/[facility]: No Current antibiotic regimen: NONE Current acid suppression regimen: NONE A: Patient has been identified as having risk factors for C.diff infection as noted above. P: ABX DE-ESCALATION RECOMMENDED: PT NOT ON ABX PROBIOTIC ORDERED: NO PPI CHANGED TO [id number]: PT NOT ON ACID SUPPRESSION TONIA MEDINA [facility], 12/30/18 9964
[2018-12-30] MEDS: PANTOPRAZOLE 40 MG TABLET.DR. PO SCH (09:52)
[2018-12-30] MEDS: GABAPENTIN 300 MG CAPSULE. PO SCH ×2 (09:52→21:00)
[2018-12-30] MEDS: DOCUSATE SODIUM 100 MG CAPSULE. PO SCH (09:53)
--- NOTE | 2018-12-30 10:35 | PDOC ---
BERTO HOOD 12/30/18 1035: SUBJECTIVE Subjective Patient states still having some pain, medication is helping. Doesn't want to proceed with nephrostomy tubes yet, is waiting for family to arrive to discuss. OBJECTIVE Objective Physical Exam Pleasant, Alert, NAD Unlabored breathing Abdomen soft nontender Vital Signs Vital Signs Date Time Temp Pulse Resp B/P (MAP) Pulse Ox O2 Delivery O2 Flow Rate FiO2 12/30/18 09:52 95 Nasal Cannula 2.0 12/30/18 09:00 66 104/50 12/30/18 07:08 16 95 Nasal Cannula 2.0 12/30/18 07:08 16 95 Nasal Cannula 2.0 12/30/18 07:00 98.4 66 16 104/50 (68) 92 Nasal Cannula 2.0 98.4 12/30/18 06:37 16 95 Nasal Cannula 2.0 12/30/18 06:09 18 95 Nasal Cannula 2.0 12/30/18 04:45 16 95 Nasal Cannula 2.0 12/30/18 04:02 18 95 Nasal Cannula 2.0 12/30/18 03:50 98.2 61 20 116/55 (75) 95 Room Air 98.2 12/30/18 02:30 18 93 Nasal Cannula 2.0 12/30/18 02:00 16 93 Nasal Cannula 2.0 12/29/18 23:59 16 93 Nasal Cannula 2.0 12/29/18 23:50 99.0 83 18 111/64 (80) 93 Room Air 99.0 12/29/18 23:20 16 93 Nasal Cannula 2.0 12/29/18 23:20 16 Nasal Cannula 2.0 12/29/18 22:03 16 92 Nasal Cannula 2.0 12/29/18 22:03 16 92 Nasal Cannula 2.0 12/29/18 21:09 16 92 2.0 12/29/18 20:30 Nasal Cannula 2.0 12/29/18 19:50 98.4 80 20 129/67 (87) 92 Room Air 98.4 12/29/18 19:40 16 92 Nasal Cannula 2.0 12/29/18 19:06 Nasal Cannula 2.0 12/29/18 18:00 98.4 68 16 99/53 (68) 93 Room Air 2.0 98.4 12/29/18 17:26 76 106/57 (73) 93 Nasal Cannula 2.0 12/29/18 16:56 72 107/56 (73) 92 Nasal Cannula 2.0 12/29/18 16:53 20 91 Nasal Cannula 2.0 12/29/18 16:28 103/56 (72) 92 Nasal Cannula 2.0 12/29/18 16:07 72 124/65 (84) 95 2.0 12/29/18 15:42 20 91 Nasal Cannula 2.0 12/29/18 15:26 72 114/57 (76) 91 Nasal Cannula 2.0 12/29/18 15:09 20 90 Room Air 12/29/18 14:58 86 119/58 (78) 91 Nasal Cannula 2.0 12/29/18 14:31 20 90 Room Air 12/29/18 13:41 98.2 89 20 108/59 (75) 93 Room Air 98.2 I & O Intake and Output 12/30/18 07:00 Intake Total 1850 ml Output Total 1250 ml Balance 600 ml Intake Oral 850 ml IV Total 1000 ml Output Urine Total 1250 ml # Voids 1 # Bowel Movements 1 ASSESSMENT/PLAN Assessment/Plan b/l hydronephrosis, BRANDIN, metastatic cervical cancer Creatinine still elevated Await nephrology consult - chemo nephrotoxicity vs obstruction Recommend PNT over ureteral stents but will postpone for now COMMENT Lab Laboratory Tests Test 12/29/18 14:23 12/29/18 16:40 12/29/18 23:30 12/30/18 06:15 Urine Collection Type Unknown Urine Color [place] Urine Clarity Clear Urine pH Urine Specific [place] Urine Protein mg/dL (NEG-TRACE) Urine Glucose (UA) mg/dL (NEG) Urine Ketones (Stick) mg/dL (NEG) Urine Blood (NEG) Urine Nitrite (NEG) Urine Bilirubin (NEG) Urine Urobilinogen Dipstick mg/dL (0.2 mg/dL) Urine Leukocyte Esterase (NEG) Urine RBC >40 /HPF (0-2) Urine WBC Occ /HPF (0-4) Urine Squamous Epithelial Cells Mod /LPF Urine Bacteria Few /HPF (0-FEW) Lactic Acid Level 0.6 mmol/L (0.4-2.0) White Blood Count 5.3 x10^3/uL (4.0-11.0) Red Blood Count 3.05 x10^6/uL (3.50-5.40) Hemoglobin 8.1 g/dL (12.0-15.5) Hematocrit 24.9 % (36.0-47.0) Mean Corpuscular Volume 82 fL (79-100) Mean Corpuscular Hemoglobin 27 pg (25-35) Mean Corpuscular Hemoglobin Concent 33 g/dL (31-37) Red Cell Distribution Width 17.2 % (11.5-14.5) Platelet Count 229 x10^3/uL (140-400) Prothrombin Time 14.6 SEC (11.7-14.0) Prothromb Time International Ratio 1.2 (0.8-1.1) Sodium Level 140 mmol/L (136-145) 142 mmol/L (136-145) Potassium Level 3.9 mmol/L (3.5-5.1) 3.7 mmol/L (3.5-5.1) Chloride Level 105 mmol/L (98-107) 109 mmol/L (98-107) Carbon Dioxide Level 25 mmol/L (21-32) 25 mmol/L (21-32) Anion Gap 10 (6-14) 8 (6-14) Blood Urea Nitrogen 33 mg/dL (7-20) 30 mg/dL (7-20) Creatinine 3.7 mg/dL (0.6-1.0) 3.5 mg/dL (0.6-1.0) Estimated GFR (Cockcroft-Gault) 13.7 14.6 Glucose Level 107 mg/dL (70-99) 95 mg/dL (70-99) Calcium Level 8.8 mg/dL (8.5-10.1) 8.6 mg/dL (8.5-10.1) ROMERO CASEY MD 01/01/19 1237: ASSESSMENT/PLAN Assessment/Plan Patient not a candidate for ureteral stents - unable to locate ureteral orifices on previous cystoscopy due to cervical cancer invading the bladder. If she desires renal drainage, nephrostomy tubes are her only option. BERTO HOOD Dec 30, 2018 10:35 ROMERO CASEY MD Jan 01, 2019 12:37
[2018-12-30 11:00] VITALS: BP 109/38
--- NOTE | 2018-12-30 13:29 | PDOC2 ---
CONSULT Date of Consult Date of Consult DATE: 12/30/18 TIME: 13:27 Reason for Consult Reason for Consult: BRANDIN on CKD Identification/Chief Complaint Chief Complaint No complaints currently Source Source: Chart review, Patient History of Present Illness Reason for Visit: Pt is a 38-year-old CF with metastatic cervical cancer who was presently on treatment with Keytruda, last dose was on Dec 10 per Pt (5 doses) She was sent to the Emergency Room by Dr. Raines after lab at her office showed the patient's creatinine increased to 4 She has CKD stage 3 and right hydronephrosis due to pelvic lymphadenopathy She denies any N/V/D.No CP or SOB . No F/C. denies any urinary complaints of UTI or retention PAST MEDICAL HISTORY: Metastatic cervical cancer with mets to the bladder,sigmoid colon and the mediastinum; hypertension; chronic anemia; chronic kidney disease stage 3. Past Medical History Cardiovascular: HTN Pulmonary: No pertinent hx CENTRAL NERVOUS SYSTEM: Other GI: GERD Heme/Onc: Anemia NOS, Cancer Hepatobiliary: No pertinent hx Psych: No pertinent hx Musculoskeletal: Other Rheumatologic: No pertinent hx Infectious disease: No pertinent hx Renal/: UTI Endocrine: No pertinent hx Past Surgical History Past Surgical History: Cystoscopy, Hysterectomy Family History Family History: Coronary Artery Disease Social History ALCOHOL: none Drugs: None Lives: with Family Current Medications Current Medications Current Medications Sodium Chloride 1,000 ml @ 1,000 mls/hr 1X ONCE IV Last administered on 12/29/18at 14:27; Start 12/29/18 at 14:15; Stop 12/29/18 at 15:14; Status DC Fentanyl Citrate (Fentanyl 2ml Vial) 50 mcg 1X ONCE IV Last administered on 12/29/18at 14:31; Start 12/29/18 at 14:15; Stop 12/29/18 at 14:16; Status DC Fentanyl Citrate (Fentanyl 2ml Vial) 75 mcg 1X ONCE IV Last administered on 12/29/18at 15:09; Start 12/29/18 at 15:15; Stop 12/29/18 at 15:16; Status DC Fentanyl Citrate (Fentanyl 2ml Vial) 75 mcg 1X ONCE IV Last administered on 12/29/18at 15:42; Start 12/29/18 at 15:45; Stop 12/29/18 at 15:46; Status DC Ceftriaxone Sodium (Rocephin) 1 gm 1X ONCE IVP Last administered on 12/29/18 17:01; Start 12/29/18 at 16:30; Stop 12/29/18 at 16:31; Status DC Doxycycline Hyclate 100 mg/ Dextrose 100 ml @ 50 mls/hr 1X ONCE IV Last administered on 12/29/18at 17:02; Start 12/29/18 at 16:30; Stop 12/29/18 at 18:29; Status DC Fentanyl Citrate (Fentanyl 2ml Vial) 50 mcg PRN Q1HR PRN IV PAIN Last administered on 12/29/18 16:53; Start 12/29/18 at 16:45; Stop 12/29/18 at 18:55; Status DC Sodium Chloride 1,000 ml @ 100 mls/hr Q10H IV Last administered on 12/30/18 12:31; Start 12/29/18 at 16:31; Stop 12/30/18 at 16:30 Fentanyl Citrate (Fentanyl 2ml Vial) 75 mcg Q2HR PRN IV PAIN Last administered on 12/30/18 13:26; Start 12/29/18 at 19:00 Methadone HCl (Dolophine) 7.5 mg Q8HRS PO ; Start 12/29/18 at 22:00; Status UNV Methadone HCl (Dolophine) 7.5 mg Q8HRS PO Last administered on 12/30/18at 13:26; Start 12/29/18 at 22:00 Docusate Sodium (Colace) 100 mg BID PRN PO HARD STOOLS; Start 12/29/18 at 19:15 Polyethylene Glycol (miraLAX PACKET) 17 gm PRN DAILY PRN PO CONSTIPATION; Start 12/29/18 at 19:15 Pharmacy Consult (C.diff Med Screen By Rx) 1 each 1X ONCE [facility] ; Start 12/30/18 at 09:00; Stop 12/30/18 at 09:01; Status Cancel Cyclobenzaprine HCl (Flexeril) 10 mg PRN TID PRN PO back pain; Start 12/30/18 at 09:00 Docusate Sodium (Colace) 100 mg DAILY PO Last administered on 12/30/18at 09:53; Start 12/30/18 at 09:00 Lisinopril (Prinivil) 10 mg DAILY PO ; Start 12/30/18 at 09:00 Polyethylene Glycol (miraLAX PACKET) 17 gm PRN DAILY PRN PO CONSTIPATION; Start 12/30/18 at 09:00; Stop 12/30/18 at 09:19; Status DC Zolpidem Tartrate (Ambien) 5 mg QHS PRN PO INSOMNIA; Start 12/30/18 at 09:00 Gabapentin (Neurontin) 600 mg BID PO Last administered on 12/30/18at 09:52; Start 12/30/18 at 09:00 Pantoprazole Sodium (Protonix) 40 mg DAILYAC PO Last administered on 12/30/18at 09:52; Start 12/30/18 at 09:00 Active Scripts Active Klor-Con M20 (Potassium Chloride) 20 Meq Tab.er.prt 20 Meq PO DAILY 30 Days Polyethylene Glycol 3350 17 Gm Powd.pack 17 Gm PO PRN DAILY PRN 30 Days Colace (Docusate Sodium) 100 Mg Capsule 100 Mg PO DAILY MDD 30 30 Days Reported Keytruda (Pembrolizumab) 100 Mg/4 Ml Vial Unknown Dose IV WEEKLY Methadone Hcl 5 Mg Tablet 1.5 Tab PO Q8HRS Oxycodone Hcl 5 Mg Capsule 1-3 Tab PO PRN Q3HRS PRN Lisinopril 20 Mg Tablet 10 Mg PO DAILY Gabapentin 600 Mg Tablet 600 Mg PO BID Prevacid (Lansoprazole) 30 Mg Capsule.dr 30 Mg PO DAILY Cyclobenzaprine Hcl 10 Mg Tablet 10 Mg PO PRN TID PRN Phenergan (Promethazine HCl) 12.5 Mg Supp.rect 12.5 Mg RC PRN Q12HR PRN Ambien (Zolpidem Tartrate) 5 Mg Tablet 1 Tab PO QHS PRN Allergies Allergies: Coded Allergies: shrimp (Verified Allergy, Severe, mouth sore, 12/21/18) ondansetron (Verified Adverse Reaction, Severe, 12/21/18) reaction with chemo ROS Review of System Per HPI Physical Exam Physical Exam Gen.: NAD, HEENT: mucous membranes moist, Neck- lymphadenopathy diffuse greatest at left(per hem/Onc ) Lungs: CTA, Non labored CV RRR Abdomen: Soft, nd, no rebound, Extremities: No cyanosis, chronic LE edema bilateral left greater than right(N ot worse per pt) Skin: No obvious rashes Neuro: Alert and oriented 3 No Mccl[place]on , No SP or CVA tenderness Vital Signs Vital Signs Date Time Temp Pulse Resp B/P (MAP) Pulse Ox O2 Delivery O2 Flow Rate FiO2 12/30/18 13:26 94 Nasal Cannula 2.0 12/30/18 11:00 98.2 65 14 109/38 (61) 98.2 Assessment & Plan BRANDIN --2/2 Dehydration / Keytruda / Hydronephrosis Cr improved some with IVF , E-Lytes and acid base stable Recommend dc Lisinopril Supportive care, IVF, Strict I/O, Monitor, daily lab CKD stage 3 -- Baseline 1.4-1.8 Follows with me as OP, last visit had stable renal function Hydronephrosis -Lt Mild- new - Urology following Chronic Rt Moderate hydronephrosis due to LA Recommends abx coverage, stent v NT was discussed with Pt . Anemia- Per Oncology Pleural effusion - On RA currently Lower extremity edema: Left greater than right, chronic, improved since recently, ultrasounds have been negative for clot recently, Stable per Pt Metastatic cervical cancer: Clinically progressive disease, Recent rectal bleeding: was pending colonoscopy as outpatient scans suggest possible colitis Labs Labs Laboratory Tests Test 12/29/18 14:23 12/29/18 16:40 12/29/18 23:30 12/30/18 06:15 Urine Collection Type Unknown Urine Color [place] Urine Clarity Clear Urine pH Urine Specific [place] Urine Protein mg/dL (NEG-TRACE) Urine Glucose (UA) mg/dL (NEG) Urine Ketones (Stick) mg/dL (NEG) Urine Blood (NEG) Urine Nitrite (NEG) Urine Bilirubin (NEG) Urine Urobilinogen Dipstick mg/dL (0.2 mg/dL) Urine Leukocyte Esterase (NEG) Urine RBC >40 /HPF (0-2) Urine WBC Occ /HPF (0-4) Urine Squamous Epithelial Cells Mod /LPF Urine Bacteria Few /HPF (0-FEW) Lactic Acid Level 0.6 mmol/L (0.4-2.0) White Blood Count 5.3 x10^3/uL (4.0-11.0) Red Blood Count 3.05 x10^6/uL (3.50-5.40) Hemoglobin 8.1 g/dL (12.0-15.5) Hematocrit 24.9 % (36.0-47.0) Mean Corpuscular Volume 82 fL (79-100) Mean Corpuscular Hemoglobin 27 pg (25-35) Mean Corpuscular Hemoglobin Concent 33 g/dL (31-37) Red Cell Distribution Width 17.2 % (11.5-14.5) Platelet Count 229 x10^3/uL (140-400) Prothrombin Time 14.6 SEC (11.7-14.0) Prothromb Time International Ratio 1.2 (0.8-1.1) Sodium Level 140 mmol/L (136-145) 142 mmol/L (136-145) Potassium Level 3.9 mmol/L (3.5-5.1) 3.7 mmol/L (3.5-5.1) Chloride Level 105 mmol/L (98-107) 109 mmol/L (98-107) Carbon Dioxide Level 25 mmol/L (21-32) 25 mmol/L (21-32) Anion Gap 10 (6-14) 8 (6-14) Blood Urea Nitrogen 33 mg/dL (7-20) 30 mg/dL (7-20) Creatinine 3.7 mg/dL (0.6-1.0) 3.5 mg/dL (0.6-1.0) Estimated GFR (Cockcroft-Gault) 13.7 14.6 Glucose Level 107 mg/dL (70-99) 95 mg/dL (70-99) Calcium Level 8.8 mg/dL (8.5-10.1) 8.6 mg/dL (8.5-10.1) Laboratory Tests Test 12/29/18 14:23 12/29/18 16:40 12/29/18 23:30 12/30/18 06:15 Urine Collection Type Unknown Urine Color [place] Urine Clarity Clear Urine pH Urine Specific [place] Urine Protein mg/dL (NEG-TRACE) Urine Glucose (UA) mg/dL (NEG) Urine Ketones (Stick) mg/dL (NEG) Urine Blood (NEG) Urine Nitrite (NEG) Urine Bilirubin (NEG) Urine Urobilinogen Dipstick mg/dL (0.2 mg/dL) Urine Leukocyte Esterase (NEG) Urine RBC >40 /HPF (0-2) Urine WBC Occ /HPF (0-4) Urine Squamous Epithelial Cells Mod /LPF Urine Bacteria Few /HPF (0-FEW) Lactic Acid Level 0.6 mmol/L (0.4-2.0) White Blood Count 5.3 x10^3/uL (4.0-11.0) Red Blood Count 3.05 x10^6/uL (3.50-5.40) Hemoglobin 8.1 g/dL (12.0-15.5) Hematocrit 24.9 % (36.0-47.0) Mean Corpuscular Volume 82 fL (79-100) Mean Corpuscular Hemoglobin 27 pg (25-35) Mean Corpuscular Hemoglobin Concent 33 g/dL (31-37) Red Cell Distribution Width 17.2 % (11.5-14.5) Platelet Count 229 x10^3/uL (140-400) Prothrombin Time 14.6 SEC (11.7-14.0) Prothromb Time International Ratio 1.2 (0.8-1.1) Sodium Level 140 mmol/L (136-145) 142 mmol/L (136-145) Potassium Level 3.9 mmol/L (3.5-5.1) 3.7 mmol/L (3.5-5.1) Chloride Level 105 mmol/L (98-107) 109 mmol/L (98-107) Carbon Dioxide Level 25 mmol/L (21-32) 25 mmol/L (21-32) Anion Gap 10 (6-14) 8 (6-14) Blood Urea Nitrogen 33 mg/dL (7-20) 30 mg/dL (7-20) Creatinine 3.7 mg/dL (0.6-1.0) 3.5 mg/dL (0.6-1.0) Estimated GFR (Cockcroft-Gault) 13.7 14.6 Glucose Level 107 mg/dL (70-99) 95 mg/dL (70-99) Calcium Level 8.8 mg/dL (8.5-10.1) 8.6 mg/dL (8.5-10.1) Review All relevant outside records, renal labs, imaging studies, telemetry/EKG's were reviewed. Images Images CT abdomen and pelvis and neck 29 December 2018 --- showed mild left pelvicaliectasis new, moderate right hydronephrosis hydroureter, mild thickening of sigmoid and rectum, pelvic inflammatory postop changes, trace free fluid in the abdomen, moderate left effusion, extensive cervical and mediastinal lymphadenopathy ILIR CHICAS MD Dec 30, 2018 13:29
[2018-12-30 15:00] VITALS: BP 111/66
--- NOTE | 2018-12-30 15:18 | RAD ---
CHEST PA LATERAL, CHEST DECUBITUS LEFT History: Pleural effusion Comparison: 05/01/2018 Portable Chest X-ray Exam. Findings: Frontal and lateral views of chest were obtained. Left lateral decubitus view of the chest was also acquired. Right intrajugular infusion port catheter tip terminates over the superior cavoatrial junction. Heart size and pulmonary vascularity are within normal limits. Left basilar moderate sized free flowing pleural effusion is identified. Adjacent atelectasis is noted. There is no right pleural effusion. Bony structures are unremarkable. IMPRESSION: Moderate-sized left basilar free-flowing pleural effusion with adjacent atelectasis. Electronically signed by: Praful Elias MD (12/30/2018 3:14 PM) [facility]
--- NOTE | 2018-12-30 15:38 | NUR ---
SS following for discharge planning. SS reviewed pt chart. Pt is from home and is currently requiring oxygen. SS will continue to follow for discharge planning.
[2018-12-30 19:30] VITALS: BP 108/60
[2018-12-30 23:20] VITALS: BP 111/59
[2018-12-31] VITALS (9 sets, daily range): BP systolic 94–125; BP diastolic 45–64
[2018-12-31] MEDS: fentaNYL PF VIAL 100 MCG/2 ML VIAL IV PRN ×7 (01:50→22:10)
[2018-12-31] MEDS: PANTOPRAZOLE 40 MG TABLET.DR. PO SCH (05:52)
[2018-12-31] MEDS: METHADONE 5 MG TABLET. PO SCH ×3 (05:53→22:02)
[2018-12-31 06:11] LABS: HEMATOCRIT 23.7 % (36.0-47.0); HEMOGLOBIN 7.6 g/dL (12.0-15.5); RED BLOOD COUNT 2.9 x10^6/uL (3.50-5.40); RED CELL DISTRIBUTION WIDTH 17.3 % (11.5-14.5); WHITE BLOOD COUNT 4.7 x10^3/uL (4.0-11.0)
[2018-12-31 06:23] LABS: CALCIUM 8.8 mg/dL (8.5-10.1); CREATININE 3.2 mg/dL (0.6-1.0); GFR 16.2; POTASSIUM 3.8 mmol/L (3.5-5.1)
[2018-12-31] MEDS: GABAPENTIN 300 MG CAPSULE. PO SCH ×2 (08:12→21:12)
[2018-12-31] MEDS: DOCUSATE SODIUM 100 MG CAPSULE. PO SCH (08:12)
--- NOTE | 2018-12-31 08:56 | PDOC ---
PROGRESS NOTES Subjective Subjective Patient reports some mild [place] but doesn't seem much worse than usual. No chest pain or shortness of breath at rest. Objective Objective Vital Signs Date Time Temp Pulse Resp B/P (MAP) Pulse Ox O2 Delivery O2 Flow Rate FiO2 12/31/18 08:17 18 Nasal Cannula 2.0 12/31/18 07:13 96 12/31/18 07:00 98.2 64 94/52 (66) 98.2 Intake and Output 12/31/18 07:00 Intake Total 1500 ml Output Total 2050 ml Balance -550 ml Intake Oral 1500 ml Output Urine Total 2050 ml Physical Exam Abdomen: Normal bowel sounds, Soft, No tenderness Heart: Regular rate Extremities: No tenderness/swelling, Other (1+ edema bilateral LE's) General: Alert, Oriented X3, No acute distress (sleepy from pain medication) Lungs: Other (BS decreased L base otherwise CTA) Plan Plan of Care 1. Acute renal failure with CKD III - suspected to be due to the Keytruda. Slowly improving with IVF, continue per Renal. Urine culture pending, not on abx presently. 2. metastatic cervical cancer - slowly progressing. Keytruda on hold presently. Hgb down to 7.6 today. Pain appears well controlled with frequent Fentanyl, continue per Dr Raines. 3. L pleural effusion - new for patient, could be due to Keytruda also. Patient with mild hypoxia on RA, no other symptoms. Risks and benefits of pleurocentesis discussed. Patient does not feel symptoms are bad enough at this time but will consider. 4. HTN - BP's somewhat low, Lisinopril d/c. Comment Review of Relevant I have reviewed the following items heather (where applicable) has been applied. Labs Laboratory Tests Test 12/29/18 14:23 12/29/18 16:40 12/29/18 23:30 12/30/18 06:15 Urine Collection Type Unknown Urine Color [place] Urine Clarity Clear Urine pH Urine Specific [place] Urine Protein mg/dL (NEG-TRACE) Urine Glucose (UA) mg/dL (NEG) Urine Ketones (Stick) mg/dL (NEG) Urine Blood (NEG) Urine Nitrite (NEG) Urine Bilirubin (NEG) Urine Urobilinogen Dipstick mg/dL (0.2 mg/dL) Urine Leukocyte Esterase (NEG) Urine RBC >40 /HPF (0-2) Urine WBC Occ /HPF (0-4) Urine Squamous Epithelial Cells Mod /LPF Urine Bacteria Few /HPF (0-FEW) Lactic Acid Level 0.6 mmol/L (0.4-2.0) White Blood Count 5.3 x10^3/uL (4.0-11.0) Red Blood Count 3.05 x10^6/uL (3.50-5.40) Hemoglobin 8.1 g/dL (12.0-15.5) Hematocrit 24.9 % (36.0-47.0) Mean Corpuscular Volume 82 fL (79-100) Mean Corpuscular Hemoglobin 27 pg (25-35) Mean Corpuscular Hemoglobin Concent 33 g/dL (31-37) Red Cell Distribution Width 17.2 % (11.5-14.5) Platelet Count 229 x10^3/uL (140-400) Prothrombin Time 14.6 SEC (11.7-14.0) Prothromb Time International Ratio 1.2 (0.8-1.1) Sodium Level 140 mmol/L (136-145) 142 mmol/L (136-145) Potassium Level 3.9 mmol/L (3.5-5.1) 3.7 mmol/L (3.5-5.1) Chloride Level 105 mmol/L (98-107) 109 mmol/L (98-107) Carbon Dioxide Level 25 mmol/L (21-32) 25 mmol/L (21-32) Anion Gap 10 (6-14) 8 (6-14) Blood Urea Nitrogen 33 mg/dL (7-20) 30 mg/dL (7-20) Creatinine 3.7 mg/dL (0.6-1.0) 3.5 mg/dL (0.6-1.0) Estimated GFR (Cockcroft-Gault) 13.7 14.6 Glucose Level 107 mg/dL (70-99) 95 mg/dL (70-99) Calcium Level 8.8 mg/dL (8.5-10.1) 8.6 mg/dL (8.5-10.1) Test 12/31/18 06:00 White Blood Count 4.7 x10^3/uL (4.0-11.0) Red Blood Count 2.90 x10^6/uL (3.50-5.40) Hemoglobin 7.6 g/dL (12.0-15.5) Hematocrit 23.7 % (36.0-47.0) Mean Corpuscular Volume 82 fL (79-100) Mean Corpuscular Hemoglobin 26 pg (25-35) Mean Corpuscular Hemoglobin Concent 32 g/dL (31-37) Red Cell Distribution Width 17.3 % (11.5-14.5) Platelet Count 228 x10^3/uL (140-400) Sodium Level 139 mmol/L (136-145) Potassium Level 3.8 mmol/L (3.5-5.1) Chloride Level 107 mmol/L (98-107) Carbon Dioxide Level 24 mmol/L (21-32) Anion Gap 8 (6-14) Blood Urea Nitrogen 27 mg/dL (7-20) Creatinine 3.2 mg/dL (0.6-1.0) Estimated GFR (Cockcroft-Gault) 16.2 Glucose Level 103 mg/dL (70-99) Calcium Level 8.8 mg/dL (8.5-10.1) Laboratory Tests Test 12/31/18 06:00 White Blood Count 4.7 x10^3/uL (4.0-11.0) Red Blood Count 2.90 x10^6/uL (3.50-5.40) Hemoglobin 7.6 g/dL (12.0-15.5) Hematocrit 23.7 % (36.0-47.0) Mean Corpuscular Volume 82 fL (79-100) Mean Corpuscular Hemoglobin 26 pg (25-35) Mean Corpuscular Hemoglobin Concent 32 g/dL (31-37) Red Cell Distribution Width 17.3 % (11.5-14.5) Platelet Count 228 x10^3/uL (140-400) Sodium Level 139 mmol/L (136-145) Potassium Level 3.8 mmol/L (3.5-5.1) Chloride Level 107 mmol/L (98-107) Carbon Dioxide Level 24 mmol/L (21-32) Anion Gap 8 (6-14) Blood Urea Nitrogen 27 mg/dL (7-20) Creatinine 3.2 mg/dL (0.6-1.0) Estimated GFR (Cockcroft-Gault) 16.2 Glucose Level 103 mg/dL (70-99) Calcium Level 8.8 mg/dL (8.5-10.1) Microbiology 12/29/18 Blood Culture - Preliminary, Resulted NO GROWTH AFTER 1 DAY Medications Current Medications Sodium Chloride 1,000 ml @ 1,000 mls/hr 1X ONCE IV Last administered on 12/29/18 14:27; Start 12/29/18 at 14:15; Stop 12/29/18 at 15:14; Status DC Fentanyl Citrate (Fentanyl 2ml Vial) 50 mcg 1X ONCE IV Last administered on 12/29/18at 14:31; Start 12/29/18 at 14:15; Stop 12/29/18 at 14:16; Status DC Fentanyl Citrate (Fentanyl 2ml Vial) 75 mcg 1X ONCE IV Last administered on 12/29/18 15:09; Start 12/29/18 at 15:15; Stop 12/29/18 at 15:16; Status DC Fentanyl Citrate (Fentanyl 2ml Vial) 75 mcg 1X ONCE IV Last administered on 12/29/18at 15:42; Start 12/29/18 at 15:45; Stop 12/29/18 at 15:46; Status DC Ceftriaxone Sodium (Rocephin) 1 gm 1X ONCE IVP Last administered on 12/29/18 17:01; Start 12/29/18 at 16:30; Stop 12/29/18 at 16:31; Status DC Doxycycline Hyclate 100 mg/ Dextrose 100 ml @ 50 mls/hr 1X ONCE IV Last administered on 12/29/18 17:02; Start 12/29/18 at 16:30; Stop 12/29/18 at 18:29; Status DC Fentanyl Citrate (Fentanyl 2ml Vial) 50 mcg PRN Q1HR PRN IV PAIN Last administered on 12/29/18 16:53; Start 12/29/18 at 16:45; Stop 12/29/18 at 18:55; Status DC Sodium Chloride 1,000 ml @ 100 mls/hr Q10H IV Last administered on 12/30/18at 12:31; Start 12/29/18 at 16:31; Stop 12/30/18 at 16:30; Status DC Fentanyl Citrate (Fentanyl 2ml Vial) 75 mcg Q2HR PRN IV PAIN Last administered on 12/31/18at 08:17; Start 12/29/18 at 19:00 Methadone HCl (Dolophine) 7.5 mg Q8HRS PO ; Start 12/29/18 at 22:00; Status UNV Methadone HCl (Dolophine) 7.5 mg Q8HRS PO Last administered on 12/31/18at 05:53; Start 12/29/18 at 22:00 Docusate Sodium (Colace) 100 mg BID PRN PO HARD STOOLS; Start 12/29/18 at 19:15 Polyethylene Glycol (miraLAX PACKET) 17 gm PRN DAILY PRN PO CONSTIPATION; Start 12/29/18 at 19:15 Pharmacy Consult (C.diff Med Screen By Rx) 1 each 1X ONCE [facility] ; Start 12/30/18 at 09:00; Stop 12/30/18 at 09:01; Status Cancel Cyclobenzaprine HCl (Flexeril) 10 mg PRN TID PRN PO back pain; Start 12/30/18 at 09:00 Docusate Sodium (Colace) 100 mg DAILY PO Last administered on 12/31/18at 08:12; Start 12/30/18 at 09:00 Lisinopril (Prinivil) 10 mg DAILY PO ; Start 12/30/18 at 09:00 Polyethylene Glycol (miraLAX PACKET) 17 gm PRN DAILY PRN PO CONSTIPATION; S tart 12/30/18 at 09:00; Stop 12/30/18 at 09:19; Status DC Zolpidem Tartrate (Ambien) 5 mg QHS PRN PO INSOMNIA; Start 12/30/18 at 09:00 Gabapentin (Neurontin) 600 mg BID PO Last administered on 12/31/18at 08:12; Start 12/30/18 at 09:00 Pantoprazole Sodium (Protonix) 40 mg DAILYAC PO Last administered on 12/31/18at 05:52; Start 12/30/18 at 09:00 Active Scripts Active Klor-Con M20 (Potassium Chloride) 20 Meq Tab.er.prt 20 Meq PO DAILY 30 Days Polyethylene Glycol 3350 17 Gm Powd.pack 17 Gm PO PRN DAILY PRN 30 Days Colace (Docusate Sodium) 100 Mg Capsule 100 Mg PO DAILY MDD 30 30 Days Reported Keytruda (Pembrolizumab) 100 Mg/4 Ml Vial Unknown Dose IV WEEKLY Methadone Hcl 5 Mg Tablet 1.5 Tab PO Q8HRS Oxycodone Hcl 5 Mg Capsule 1-3 Tab PO PRN Q3HRS PRN Lisinopril 20 Mg Tablet 10 Mg PO DAILY Gabapentin 600 Mg Tablet 600 Mg PO BID Prevacid (Lansoprazole) 30 Mg Capsule.dr 30 Mg PO DAILY Cyclobenzaprine Hcl 10 Mg Tablet 10 Mg PO PRN TID PRN Phenergan (Promethazine HCl) 12.5 Mg Supp.rect 12.5 Mg RC PRN Q12HR PRN Ambien (Zolpidem Tartrate) 5 Mg Tablet 1 Tab PO QHS PRN Vitals/I & O Vital Sign - Last 24 Hours 12/30/18 12/30/18 12/30/18 12/30/18 09:00 09:52 11:00 13:12 Temp 98.2 98.2 Pulse 66 65 Resp 14 B/P (MAP) 104/50 109/38 (61) Pulse Ox 95 94 94 O2 Delivery Nasal Cannula Room Air Nasal Cannula O2 Flow Rate 2.0 2.0 12/30/18 12/30/18 12/30/18 12/30/18 13:26 13:26 15:00 16:30 Temp 98.2 98.2 Pulse 73 Resp 16 B/P (MAP) 111/66 (81) Pulse Ox 94 94 96 96 O2 Delivery Nasal Cannula Nasal Cannula Room Air Nasal Cannula O2 Flow Rate 2.0 2.0 2.0 12/30/18 12/30/18 12/30/18 12/30/18 16:30 16:31 19:13 19:15 Resp 16 16 Pulse Ox 96 96 96 O2 Delivery Nasal Cannula Nasal Cannula Nasal Cannula Nasal Cannula O2 Flow Rate 2.0 2.0 2.0 2.0 12/30/18 12/30/18 12/30/18 12/30/18 19:30 19:30 19:43 21:45 Temp 98.6 98.6 Pulse 75 Resp 18 16 16 B/P (MAP) 108/60 (76) Pulse Ox 97 97 O2 Delivery Nasal Cannula Nasal Cannula Nasal Cannula Nasal Cannula O2 Flow Rate 2.0 2.0 2.0 2.0 12/30/18 12/30/18 12/30/18 12/30/18 21:48 22:15 23:02 23:20 Temp 98.1 98.1 Pulse 71 Resp 16 18 18 18 B/P (MAP) 111/59 (76) Pulse Ox 97 97 94 O2 Delivery Nasal Cannula Nasal Cannula Nasal Cannula Nasal Cannula O2 Flow Rate 2.0 2.0 2.0 2.0 12/30/18 12/31/18 12/31/18 12/31/18 23:49 00:30 01:50 02:20 Resp 16 16 16 18 Pulse Ox 94 94 94 O2 Delivery Nasal Cannula Nasal Cannula Nasal Cannula Nasal Cannula O2 Flow Rate 2.0 2.0 2.0 2.0 12/31/18 12/31/18 12/31/18 12/31/18 03:28 03:51 04:35 05:53 Temp 98.4 98.4 Pulse 65 Resp 18 18 16 16 B/P (MAP) 107/53 (71) Pulse Ox 96 96 96 96 O2 Delivery Nasal Cannula Nasal Cannula Nasal Cannula Nasal Cannula O2 Flow Rate 2.0 2.0 2.0 2.0 12/31/18 12/31/18 12/31/18 12/31/18 05:53 07:00 07:13 07:13 Temp 98.2 98.2 Pulse 64 Resp 16 18 16 16 B/P (MAP) 94/52 (66) Pulse Ox 96 96 96 96 O2 Delivery Nasal Cannula Nasal Cannula Nasal Cannula Nasal Cannula O2 Flow Rate 2.0 2.0 2.0 2.0 12/31/18 08:17 Resp 18 O2 Delivery Nasal Cannula O2 Flow Rate 2.0 Intake and Output 12/30/18 12/30/18 12/31/18 15:00 23:00 07:00 Intake Total 430 ml 440 ml 630 ml Output Total 275 ml 475 ml 1300 ml Balance 155 ml -35 ml -670 ml ALYSSA MARTELL MD Dec 31, 2018 08:55
--- NOTE | 2018-12-31 09:32 | PDOC ---
SUBJECTIVE Subjective S: doing better, making progress, not sure about nephro tubes, pain ok on this dose, doesn't feel like 50 mcg of fentanyl works so will try to space out the 75 mcg as able O: Gen: NAD, looks better today, resting in bed w/ family Resp: breathing comfortably on RA w/o inc WOB Labs: Hb 7.6, plt nl, wbc nl Cr down to 3.2 Rads: layering L eff w/ atx Assessment and Plan: Marivel is a 38-year-old female with metastatic cervical cancer, recently on pembrolizumab palliatively, admitted with clinically progressive disease and renal failure Renal failure: Appreciate urology input, getting hydration, may need nephrostomy tube versus other? Pleural effusion with atx: IR con for L thoracentesis w/ cytology today Lower extremity edema: Left greater than right, chronic, improved since recently, ultrasounds have been negative for clot recently, can use compression stockings as needed, was to get outpatient stress test after last admit Metastatic cervical cancer: Clinically progressive disease, no clinical trial available at , (potential vaccine trial, she would have to travel likely [id number], renal function likely would preclude) could consider next line gemcitabine days 1 and 8 and 15 q 28 versus palliative care. We will continue her methadone 7.5 mg 3 times a day and fentanyl 75 g every 2 hours (space out as able), w/ Colace and MiraLAX when necessary. Fentanyl 50 did not adequately treat the pain at recent admit, morphine causes nausea and mental status changes. Prophylaxis: heparin prophylaxis can be added if not getting procedures (after thora today) Recent rectal bleeding: was pending colonoscopy as outpatient after recent admit, scans suggest possible colitis though no signif sx now Disposition: After continued clinical improvement, appreciate multidisciplinary care Thank you kindly, and please don't hesitate to call with any further questions. OBJECTIVE Vital Signs Vital Signs Date Time Temp Pulse Resp B/P (MAP) Pulse Ox O2 Delivery O2 Flow Rate FiO2 12/31/18 08:17 18 Nasal Cannula 2.0 12/31/18 07:13 16 96 Nasal Cannula 2.0 12/31/18 07:13 16 96 Nasal Cannula 2.0 12/31/18 07:00 98.2 64 18 94/52 (66) 96 Nasal Cannula 2.0 98.2 12/31/18 05:53 16 96 Nasal Cannula 2.0 12/31/18 05:53 16 96 Nasal Cannula 2.0 12/31/18 04:35 16 96 Nasal Cannula 2.0 12/31/18 03:51 18 96 Nasal Cannula 2.0 12/31/18 03:28 98.4 65 18 107/53 (71) 96 Nasal Cannula 2.0 98.4 12/31/18 02:20 18 Nasal Cannula 2.0 12/31/18 01:50 16 94 Nasal Cannula 2.0 12/31/18 00:30 16 94 Nasal Cannula 2.0 12/30/18 23:49 16 94 Nasal Cannula 2.0 12/30/18 23:20 98.1 71 18 111/59 (76) 94 Nasal Cannula 2.0 98.1 12/30/18 23:02 18 Nasal Cannula 2.0 12/30/18 22:15 18 97 Nasal Cannula 2.0 12/30/18 21:48 16 97 Nasal Cannula 2.0 12/30/18 21:45 16 97 Nasal Cannula 2.0 12/30/18 19:43 16 Nasal Cannula 2.0 12/30/18 19:30 Nasal Cannula 2.0 12/30/18 19:30 98.6 75 18 108/60 (76) 97 Nasal Cannula 2.0 98.6 12/30/18 19:15 16 Nasal Cannula 2.0 12/30/18 19:13 16 96 Nasal Cannula 2.0 12/30/18 16:31 96 Nasal Cannula 2.0 12/30/18 16:30 96 Nasal Cannula 2.0 12/30/18 16:30 96 Nasal Cannula 2.0 12/30/18 15:00 98.2 73 16 111/66 (81) 96 Room Air 98.2 12/30/18 13:26 94 Nasal Cannula 2.0 12/30/18 13:26 94 Nasal Cannula 2.0 12/30/18 13:12 94 Nasal Cannula 2.0 12/30/18 11:00 98.2 65 14 109/38 (61) 94 Room Air 98.2 12/30/18 09:52 95 Nasal Cannula 2.0 I & O Intake and Output 12/31/18 07:00 Intake Total 1500 ml Output Total 2050 ml Balance -550 ml Intake Oral 1500 ml Output Urine Total 2050 ml COMMENT Lab Laboratory Tests Test 12/31/18 06:00 White Blood Count 4.7 x10^3/uL (4.0-11.0) Red Blood Count 2.90 x10^6/uL (3.50-5.40) Hemoglobin 7.6 g/dL (12.0-15.5) Hematocrit 23.7 % (36.0-47.0) Mean Corpuscular Volume 82 fL (79-100) Mean Corpuscular Hemoglobin 26 pg (25-35) Mean Corpuscular Hemoglobin Concent 32 g/dL (31-37) Red Cell Distribution Width 17.3 % (11.5-14.5) Platelet Count 228 x10^3/uL (140-400) Sodium Level 139 mmol/L (136-145) Potassium Level 3.8 mmol/L (3.5-5.1) Chloride Level 107 mmol/L (98-107) Carbon Dioxide Level 24 mmol/L (21-32) Anion Gap 8 (6-14) Blood Urea Nitrogen 27 mg/dL (7-20) Creatinine 3.2 mg/dL (0.6-1.0) Estimated GFR (Cockcroft-Gault) 16.2 Glucose Level 103 mg/dL (70-99) Calcium Level 8.8 mg/dL (8.5-10.1) POWER MEHTA MD Dec 31, 2018 09:32
--- NOTE | 2018-12-31 12:50 | NUR ---
Pt to IR by bed.
--- NOTE | 2018-12-31 13:10 | NUR ---
Returned from IR by bed. Alert and oriented x's 4. Dressing left upper back d/i. Requesting pain med. Instructed to rest till chest x-rays is completed in 2 hours. Will give fentanyl. Cont. monitor.
--- NOTE | 2018-12-31 14:08 | PDOC ---
SUBJECTIVE ROS States feeling better , No new concerns , Good UOP OBJECTIVE Vital Signs Vital Signs Date Time Temp Pulse Resp B/P (MAP) Pulse Ox O2 Delivery O2 Flow Rate FiO2 12/31/18 13:20 Room Air 12/31/18 13:00 78 107/52 (70) 98 12/31/18 11:00 98.3 19 98.3 12/31/18 08:17 2.0 I & 0 Intake and Output 12/31/18 07:00 Intake Total 1500 ml Output Total 2050 ml Balance -550 ml Intake Oral 1500 ml Output Urine Total 2050 ml PHYSICAL EXAM Physical Exam Gen.: NAD, HEENT: mucous membranes moist, Neck- lymphadenopathy diffuse greatest at left(per hem/Onc ) Lungs: CTA, Non labored CV RRR Abdomen: Soft, nd, no rebound, Extremities: No cyanosis, chronic LE edema bilateral left greater than right(Not worse per pt) Skin: No obvious rashes Neuro: Alert and oriented 3 No Mcclendon , No SP or CVA tenderness DIAGNOSIS/ASSESSMENT Assessment & Plan BRANDIN --2/2 Dehydration / Keytruda / Hydronephrosis Cr improved some with IVF , E-Lytes and acid base stable Lisinopril held Supportive care, IVF, Strict I/O, Monitor, daily lab CKD stage 3 -- Baseline 1.4-1.8 Follows with me as OP, last visit had stable renal function Hydronephrosis -Lt Mild- new - Urology following Chronic Rt Moderate hydronephrosis due to LA Recommends abx coverage, stent v NT was discussed with Pt Microscopic hematuria- Onc and Urology on board Anemia- Per Oncology Pleural effusion - On RA currently Lower extremity edema: Left greater than right, chronic, improved since recently, ultrasounds have been negative for clot recently, Stable per Pt Metastatic cervical cancer: Clinically progressive disease, Recent rectal bleeding: was pending colonoscopy as outpatient scans suggest possible colitis COMMENT/RELEVANT DATA Meds Current Medications Medications (Trade) Dose Ordered Sig/Sanna Start Time Stop Time Status Last Admin Dose Admin Ceftriaxone Sodium (Rocephin) 1 gm 1X ONCE 12/29/18 16:30 12/29/18 16:31 DC 12/29/18 17:01 1 GM Cyclobenzaprine HCl (Flexeril) 10 mg PRN TID PRN 12/30/18 09:00 Docusate Sodium (Colace) 100 mg DAILY 12/30/18 09:00 12/31/18 08:12 100 MG Doxycycline Hyclate 100 mg/ Dextrose 100 ml @ 50 mls/hr 1X ONCE 12/29/18 16:30 12/29/18 18:29 DC 12/29/18 17:02 50 MLS/HR Fentanyl Citrate (Fentanyl 2ml Vial) 75 mcg Q2HR PRN 12/29/18 19:00 12/31/18 13:20 75 MCG Gabapentin (Neurontin) 600 mg BID 12/30/18 09:00 12/31/18 08:12 600 MG Lisinopril (Prinivil) 10 mg DAILY 12/30/18 09:00 12/31/18 08:39 DC Methadone HCl (Dolophine) 7.5 mg Q8HRS 12/29/18 22:00 12/31/18 05:53 7.5 MG Pantoprazole Sodium (Protonix) 40 mg DAILYAC 12/30/18 09:00 12/31/18 05:52 40 MG Pharmacy Consult (C.diff Med Screen By Rx) 1 each 1X ONCE 12/30/18 09:00 12/30/18 09:01 Cancel Polyethylene Glycol (miraLAX PACKET) 17 gm PRN DAILY PRN 12/30/18 09:00 12/30/18 09:19 DC Sodium Chloride 1,000 ml @ 100 mls/hr Q10H 12/29/18 16:31 12/30/18 16:30 DC 12/30/18 12:31 100 MLS/HR Zolpidem Tartrate (Ambien) 5 mg QHS PRN 12/30/18 09:00 Lab Laboratory Tests Test 12/31/18 06:00 White Blood Count 4.7 x10^3/uL (4.0-11.0) Red Blood Count 2.90 x10^6/uL (3.50-5.40) Hemoglobin 7.6 g/dL (12.0-15.5) Hematocrit 23.7 % (36.0-47.0) Mean Corpuscular Volume 82 fL (79-100) Mean Corpuscular Hemoglobin 26 pg (25-35) Mean Corpuscular Hemoglobin Concent 32 g/dL (31-37) Red Cell Distribution Width 17.3 % (11.5-14.5) Platelet Count 228 x10^3/uL (140-400) Sodium Level 139 mmol/L (136-145) Potassium Level 3.8 mmol/L (3.5-5.1) Chloride Level 107 mmol/L (98-107) Carbon Dioxide Level 24 mmol/L (21-32) Anion Gap 8 (6-14) Blood Urea Nitrogen 27 mg/dL (7-20) Creatinine 3.2 mg/dL (0.6-1.0) Estimated GFR (Cockcroft-Gault) 16.2 Glucose Level 103 mg/dL (70-99) Calcium Level 8.8 mg/dL (8.5-10.1) Results All relevant outside records, renal labs, imaging studies, telemetry/EKG's were reviewed. ILIR CHICAS MD Dec 31, 2018 14:08
--- NOTE | 2018-12-31 14:58 | RAD ---
Ultrasound Guided Thoracentesis, left side Indication: 38-year-old with left pleural effusion Sedation: Local anesthesia only Sterility: The procedure was performed in its entirety using appropriate elements of sterile technique. Technique and Findings: Following informed consent, the patient was prepped and draped in the usual sterile fashion. Ultrasound interrogation of the area of interest was performed revealing the presence of a pleural fluid collection. 1% Lidocaine was used to achieve local anesthesia over the area of interest. A small dermatotomy was made and a 5F [id number] catheter was advanced under ultrasound guidance into the pleural space and 900 cc's of thin yellow fluid was removed. The catheter was then removed and hemostasis was achieved with manual compression. Impression: US thoracentesis as described.
--- NOTE | 2018-12-31 16:31 | RAD ---
EXAM: CHEST 1 VIEW History: Status post thoracentesis. COMPARISON: 12/30/2018 TECHNIQUE: Single portable radiograph of the chest Findings/ impression: Low lung volumes and technique accentuates heart size and pulmonary vascularity. Enlarged appearing mediastinum similar to prior exam. Right-sided Port-A-Cath is unchanged. Minimal atelectasis right lung base. Interval mild decrease in left lung base airspace opacities likely atelectasis or infiltrate and small left pleural effusion. No obvious pneumothorax. Electronically signed by: Bong Calvo MD (12/31/2018 4:28 PM) [id number]
[2019-01-01 03:00] VITALS: BP 95/66
[2019-01-01] MEDS: fentaNYL PF VIAL 100 MCG/2 ML VIAL IV PRN ×7 (03:57→22:05)
[2019-01-01] MEDS: METHADONE 5 MG TABLET. PO SCH ×3 (05:58→22:04)
[2019-01-01 06:44] LABS: GFR 17.5; POTASSIUM 3.9 mmol/L (3.5-5.1)
[2019-01-01 07:00] VITALS: BP 104/59
[2019-01-01] MEDS: GABAPENTIN 300 MG CAPSULE. PO SCH ×2 (07:53→22:04)
[2019-01-01] MEDS: PANTOPRAZOLE 40 MG TABLET.DR. PO SCH (07:53)
[2019-01-01] MEDS: DOCUSATE SODIUM 100 MG CAPSULE. PO SCH (07:59)
--- NOTE | 2019-01-01 10:49 | PDOC ---
Renal-Progress Notes Subjective Notes Notes LE SWELLING History of Present Illness Hx of present illness NO CHANGE Vitals Vitals Vital Signs Date Time Temp Pulse Resp B/P (MAP) Pulse Ox O2 Delivery O2 Flow Rate FiO2 01/01/19 08:25 Room Air 01/01/19 06:47 20 01/01/19 03:00 99.2 85 95/66 (76) 93 99.2 12/31/18 08:17 2.0 Weight Weight [ ] I.O. Intake and Output Intake and Output 01/01/19 07:00 Intake Total 1330 ml Output Total 1300 ml Balance 30 ml Intake Oral 980 ml Other 350 ml Output Urine Total 1300 ml # Voids 1 Labs Labs Laboratory Tests Test 01/01/19 06:00 Sodium Level 142 mmol/L (136-145) Potassium Level 3.9 mmol/L (3.5-5.1) Chloride Level 108 mmol/L (98-107) Carbon Dioxide Level 23 mmol/L (21-32) Anion Gap 11 (6-14) Blood Urea Nitrogen 27 mg/dL (7-20) Creatinine 3.0 mg/dL (0.6-1.0) Estimated GFR (Cockcroft-Gault) 17.5 Glucose Level 111 mg/dL (70-99) Calcium Level 9.0 mg/dL (8.5-10.1) Micro Micro Microbiology 12/29/18 Blood Culture - Preliminary, Resulted NO GROWTH AFTER 2 DAYS 12/29/18 Urine Culture - Preliminary, Resulted 12/29/18 Urine Culture Result 1 (FUNMI) - Preliminary, Resulted Review of Systems Constitutional: yes: alert Ears/Nose/Throat: Yes: no symptom reported Eyes: Yes: no symptom reported Cardiovascular: Yes edema Gastrointestional: Yes: constipation Genitourinary: Yes: no symptom reported Musculoskeletal: Yes: muscle stiffness Skin: Yes no symptom reported Psychiatric/Neurological: Yes: no symptom reported Endocrine: Yes: no symptom reported Physical Exam General Appearance: no apparent distress Skin: warm Respiratory: decreased breath sounds Heart: S1S2 Abdomen: soft Extremities: edema Neurology: alert Musculoskeletal: Other Assessment Assessment IMP BRANDIN-BETTER WITH CR DOWN TO 3.0 CKD STAGE 3 WITH CR OF 1.5-2.0 BILATERAL HYDRONEPHROSIS MET CERVICAL CANCER-ONC FOLLOWING ANEMIA-HEME FOLLOWING EDEMA PLAN MAY NEED PCN IF RENAL CLEARANCE DOES NOT TO CONTINUE TO IMPROVE STOP HER IVF'S TRIAL OF LOW DOSE LASIX WILL FOLLOW EPIFANIO BARDALES MD Jan 01, 2019 10:49
[2019-01-01 11:00] VITALS: BP 117/60
[2019-01-01] MEDS: FUROSEMIDE 40 MG TABLET. PO SCH ×2 (11:00→14:00)
--- NOTE | 2019-01-01 12:22 | PDOC ---
PROGRESS NOTES Subjective She feels better, renal function slowly improving, Dr. Hernadez has resumed Lasix but pt is apprehensive about taking it Objective Afebrile General: NAD, A&O Heart: RRR Lungs: CTA Abd: soft and non tender, no CVA tenderness Ext: no edema Creat: 3.0 Vital Signs Vital Signs Date Time Temp Pulse Resp B/P (MAP) Pulse Ox O2 Delivery O2 Flow Rate FiO2 01/01/19 11:35 Room Air 01/01/19 07:00 98.8 98 18 104/59 (74) 91 98.8 12/31/18 08:17 2.0 I & O Intake and Output 01/01/19 07:00 Intake Total 1330 ml Output Total 1300 ml Balance 30 ml Intake Oral 980 ml Other 350 ml Output Urine Total 1300 ml # Voids 1 Assessment and Plan 1. Acute renal failure with CKD III - suspected to be due to the Keytruda. Slowly improving with IVF, continue per Renal. Urine culture pending, not on abx presently. 2. metastatic cervical cancer - slowly progressing. Keytruda on hold presently. Hgb down to 7.6 today. Pain appears well controlled with frequent Fentanyl, continue per Dr Raines. 3. L pleural effusion - new for patient, could be due to Keytruda also. Patient with mild hypoxia on RA, no other symptoms. Risks and benefits of pleurocentesis discussed. Patient does not feel symptoms are bad enough at this time but will consider. 4. HTN - BP's somewhat low, Lisinopril has been held. Kailyn HOOD MD Jan 01, 2019 12:22
[2019-01-01 15:00] VITALS: BP 113/68
[2019-01-01 19:30] VITALS: BP 113/59
[2019-01-01] MEDS: ZOLPIDEM 5 MG TABLET. PO PRN (22:04)
[2019-01-01 23:35] VITALS: BP 98/47
[2019-01-02] MEDS: fentaNYL PF VIAL 100 MCG/2 ML VIAL IV PRN ×5 (00:58→22:22)
[2019-01-02 03:33] VITALS: BP 97/52
[2019-01-02] MEDS: METHADONE 5 MG TABLET. PO SCH ×3 (06:41→22:21)
[2019-01-02] MEDS: PANTOPRAZOLE 40 MG TABLET.DR. PO SCH (06:41)
[2019-01-02 07:00] VITALS: BP 102/49
[2019-01-02 07:06] LABS: CALCIUM 8.8 mg/dL (8.5-10.1); GFR 17.5; POTASSIUM 3.6 mmol/L (3.5-5.1)
[2019-01-02] MEDS: DOCUSATE SODIUM 100 MG CAPSULE. PO SCH (08:19)
[2019-01-02] MEDS: FUROSEMIDE 40 MG TABLET. PO SCH ×2 (08:19→13:41)
[2019-01-02] MEDS: GABAPENTIN 300 MG CAPSULE. PO SCH ×2 (08:20→22:21)
--- NOTE | 2019-01-02 09:43 | PDOC ---
Renal-Progress Notes Subjective Notes Notes STILL SWOLLEN History of Present Illness Hx of present illness NO CHANGES Vitals Vitals Vital Signs Date Time Temp Pulse Resp B/P (MAP) Pulse Ox O2 Delivery O2 Flow Rate FiO2 01/02/19 08:00 Room Air 01/02/19 07:00 98.0 84 18 102/49 (66) 96 98.0 01/01/19 14:16 2.0 Weight Weight [ ] I.O. Intake and Output Intake and Output 01/02/19 07:00 Intake Total 500 ml Balance 500 ml Intake Oral 500 ml # Voids 9 Labs Labs Laboratory Tests Test 01/02/19 06:25 Sodium Level 143 mmol/L (136-145) Potassium Level 3.6 mmol/L (3.5-5.1) Chloride Level 108 mmol/L (98-107) Carbon Dioxide Level 23 mmol/L (21-32) Anion Gap 12 (6-14) Blood Urea Nitrogen 26 mg/dL (7-20) Creatinine 3.0 mg/dL (0.6-1.0) Estimated GFR (Cockcroft-Gault) 17.5 Glucose Level 93 mg/dL (70-99) Calcium Level 8.8 mg/dL (8.5-10.1) Micro Micro Microbiology 12/29/18 Blood Culture - Preliminary, Resulted NO GROWTH AFTER 3 DAYS 12/29/18 Urine Culture - Preliminary, Resulted 12/29/18 Urine Culture Result 1 (FUNMI) - Preliminary, Resulted Review of Systems Constitutional: yes: alert Ears/Nose/Throat: Yes: no symptom reported Eyes: Yes: no symptom reported Cardiovascular: Yes edema Gastrointestional: Yes: constipation Genitourinary: Yes: no symptom reported Musculoskeletal: Yes: muscle stiffness Skin: Yes no symptom reported Psychiatric/Neurological: Yes: no symptom reported Endocrine: Yes: no symptom reported Physical Exam General Appearance: no apparent distress Skin: warm Respiratory: decreased breath sounds Heart: S1S2 Abdomen: soft Extremities: edema Neurology: alert Musculoskeletal: Other Assessment Assessment IMP BRANDIN-BETTER OVERALL WITH CR STABLE AT 3.0 CKD STAGE 3 WITH CR OF 1.5-2.0 BILATERAL HYDRONEPHROSIS MET CERVICAL CANCER-ONC FOLLOWING ANEMIA-HEME FOLLOWING EDEMA PLAN MAY NEED PCN IF RENAL CLEARANCE DOES NOT TO CONTINUE TO IMPROVE OFF HER IVF'S TRIAL OF LOW DOSE LASIX UROLOGY FOLLOWING UNABLE TO DO STENTS SINCE URETERAL ORIFICE CANT BE LOCATED WILL ASK HER ABOUT PCN TUBES AGAIN TOMORROW WILL FOLLOW EPIFANIO BARDALES MD Jan 02, 2019 09:43
[2019-01-02 10:56] VITALS: BP 109/57
--- NOTE | 2019-01-02 12:29 | PDOC ---
PROGRESS NOTES Subjective Renal function stable, no symptoms of hydronephrosis, she took Lasix yesterday but Lisinopril held due to her BP. She is urinating. She has pain in her shoulder area and RUQ area Objective Afebrile General: NAD Heart: RRR Lungs: no dyspnea Abd: soft Ext: less edema BUN: 26 Creat: 3.0 Vital Signs Vital Signs Date Time Temp Pulse Resp B/P (MAP) Pulse Ox O2 Delivery O2 Flow Rate FiO2 01/02/19 10:56 98.5 95 18 109/57 (74) 94 Room Air 98.5 01/01/19 14:16 2.0 I & O Intake and Output 01/02/19 07:00 Intake Total 500 ml Balance 500 ml Intake Oral 500 ml # Voids 9 Assessment and Plan 1. Acute renal failure with CKD III - suspected to be due to the Keytruda. Slowly improving with IVF, continue per Renal. Urine culture pending, not on abx presently. 2. metastatic cervical cancer - slowly progressing. Keytruda on hold presently. Hgb down to 7.6 today. Pain appears well controlled with frequent Fentanyl, c ontinue per Dr Raines. 3. L pleural effusion - new for patient, s/p thoracentesis 12/31/18 4. HTN - BP's somewhat low, Lisinopril has been held, will decrease dose to 2.5 mg. Kailyn HOOD MD Jan 02, 2019 12:29
[2019-01-02 15:05] VITALS: BP 102/61
[2019-01-02 19:30] VITALS: BP 104/57
[2019-01-03] VITALS (7 sets, daily range): BP systolic 98–110; BP diastolic 51–68
[2019-01-03] MEDS: fentaNYL PF VIAL 100 MCG/2 ML VIAL IV PRN ×6 (00:58→21:10)
[2019-01-03] MEDS: METHADONE 5 MG TABLET. PO SCH ×3 (06:15→21:09)
[2019-01-03 07:04] LABS: CREATININE 3.2 mg/dL (0.6-1.0); GFR 16.2; POTASSIUM 3.5 mmol/L (3.5-5.1)
[2019-01-03] MEDS: GABAPENTIN 300 MG CAPSULE. PO SCH ×2 (08:05→21:09)
[2019-01-03] MEDS: FUROSEMIDE 40 MG TABLET. PO SCH ×2 (08:05→15:14)
[2019-01-03] MEDS: DOCUSATE SODIUM 100 MG CAPSULE. PO SCH (08:06)
[2019-01-03] MEDS: PANTOPRAZOLE 40 MG TABLET.DR. PO SCH (08:06)
[2019-01-03] MEDS: LISINOPRIL 5 MG TABLET. PO SCH (08:23)
--- NOTE | 2019-01-03 08:53 | PDOC ---
SUBJECTIVE Subjective S: chest pain, had 900 cc thoracentesis done, sl hypoxia, on O2 O: Gen: NAD, on O2, slight trouble w/ full sentences Psych: pleasant mood and affect Labs: Hb 7.6, plt nl, wbc nl on last check Cr 3.2 Rads: layering L eff w/ atx Assessment and Plan: Marivel is a 38-year-old female with metastatic cervical cancer, recently on pembrolizumab palliatively, admitted with clinically progressive disease and renal failure, and slight hypoxia on O2, s/p thoracentesis 12/31 w/ 900 cc fluid w/drawn UTI: UA cx w/ e faecalis, defer to primary Renal failure: Appreciate urology input, getting hydration, may need nephrostomy tube versus other? Pleural effusion with atx: s/p L thoracentesis w/ cytology (should be pending) chest pain/dyspnea: will check V/Q scan w/ elev Cr, on O2, asking for poss pall RT options? have consulted Dr Samuel, apprec his assistance Lower extremity edema: Left greater than right, chronic, ultrasounds have been negative for clot recently, can use compression stockings as needed, was to get outpatient stress test after last admit Metastatic cervical cancer: Clinically progressive disease, no clinical trial available at , (potential vaccine trial, she would have to travel likely [id number], renal function likely would preclude) could consider next line gemcitabine days 1 and 8 and 15 q 28 versus palliative care. We will continue her methadone 7.5 mg 3 times a day and fentanyl 75 g every 2 hours prn, w/ Colace and MiraLAX when necessary. Fentanyl 50 did not adequately treat the pain at recent admit, morphine causes nausea and mental status changes. Potential for pall RT? Prophylaxis: heparin prophylaxis will be added today Recent rectal bleeding: was pending colonoscopy as outpatient after recent admit, scans suggest possible colitis though no signif sx now Disposition: After continued clinical improvement, appreciate multidisciplinary care Thank you kindly, and please don't hesitate to call with any further questions. OBJECTIVE Vital Signs Vital Signs Date Time Temp Pulse Resp B/P (MAP) Pulse Ox O2 Delivery O2 Flow Rate FiO2 01/03/19 08:23 98 108/53 01/03/19 08:16 Room Air 01/03/19 07:15 Room Air 01/03/19 07:00 98.8 98 18 108/53 (71) 93 Room Air 98.8 01/03/19 03:42 99.3 91 16 99/51 (67) 91 Room Air 99.3 01/03/19 00:00 99.1 87 18 109/61 (77) 94 Room Air 99.1 01/02/19 20:00 Room Air 01/02/19 19:30 98.9 88 18 104/57 (73) 94 Room Air 98.9 01/02/19 17:37 Room Air 01/02/19 16:53 Room Air 01/02/19 15:05 97.9 93 18 102/61 (75) 97 Room Air 97.9 01/02/19 14:39 Room Air 01/02/19 14:39 Room Air 01/02/19 14:07 Room Air 01/02/19 13:41 Room Air 01/02/19 10:56 98.5 95 18 109/57 (74) 94 Room Air 98.5 I & O Intake and Output 01/03/19 07:00 Intake Total 1350 ml Output Total 2100 ml Balance -750 ml Intake Oral 1350 ml Output Urine Total 2100 ml # Voids 4 COMMENT Lab Laboratory Tests Test 01/03/19 06:25 Sodium Level 140 mmol/L (136-145) Potassium Level 3.5 mmol/L (3.5-5.1) Chloride Level 105 mmol/L (98-107) Carbon Dioxide Level 22 mmol/L (21-32) Anion Gap 13 (6-14) Blood Urea Nitrogen 30 mg/dL (7-20) Creatinine 3.2 mg/dL (0.6-1.0) Estimated GFR (Cockcroft-Gault) 16.2 Glucose Level 106 mg/dL (70-99) Calcium Level 9.0 mg/dL (8.5-10.1) POWER MEHTA MD Jan 03, 2019 08:53
--- NOTE | 2019-01-03 10:56 | PDOC ---
Renal-Progress Notes Subjective Notes Notes NO NEW COMPLAINTS History of Present Illness Hx of present illness NO CHANGES Vitals Vitals Vital Signs Date Time Temp Pulse Resp B/P (MAP) Pulse Ox O2 Delivery O2 Flow Rate FiO2 01/03/19 08:46 Room Air 01/03/19 08:23 98 108/53 01/03/19 08:00 2.0 01/03/19 07:00 98.8 18 93 98.8 Weight Weight [ ] I.O. Intake and Output Intake and Output 01/03/19 07:00 Intake Total 1350 ml Output Total 2100 ml Balance -750 ml Intake Oral 1350 ml Output Urine Total 2100 ml # Voids 4 Labs Labs Laboratory Tests Test 01/03/19 06:25 Sodium Level 140 mmol/L (136-145) Potassium Level 3.5 mmol/L (3.5-5.1) Chloride Level 105 mmol/L (98-107) Carbon Dioxide Level 22 mmol/L (21-32) Anion Gap 13 (6-14) Blood Urea Nitrogen 30 mg/dL (7-20) Creatinine 3.2 mg/dL (0.6-1.0) Estimated GFR (Cockcroft-Gault) 16.2 Glucose Level 106 mg/dL (70-99) Calcium Level 9.0 mg/dL (8.5-10.1) Micro Micro Microbiology 12/29/18 Blood Culture - Preliminary, Resulted NO GROWTH AFTER 4 DAYS 12/29/18 Urine Culture - Final, Complete 12/29/18 Urine Culture Result 1 (FUNMI) - Final, Complete 12/29/18 Antimicrobic Susceptibility - Final, Complete Review of Systems Constitutional: yes: alert, oriented Ears/Nose/Throat: Yes: no symptom reported Eyes: Yes: no symptom reported Cardiovascular: Yes edema Gastrointestional: Yes: constipation Genitourinary: Yes: no symptom reported Musculoskeletal: Yes: muscle stiffness Skin: Yes no symptom reported Psychiatric/Neurological: Yes: no symptom reported Endocrine: Yes: no symptom reported Physical Exam General Appearance: no apparent distress Skin: warm Respiratory: decreased breath sounds Heart: S1S2 Abdomen: soft Extremities: edema Neurology: alert Musculoskeletal: Other Assessment Assessment IMP BRANDIN-OVERALL NOT ANY BETTER WITH CR OF 3.2 CKD STAGE 3 WITH CR OF 1.5-2.0 BILATERAL HYDRONEPHROSIS MET CERVICAL CANCER-ONC FOLLOWING ANEMIA-HEME FOLLOWING EDEMA PLAN SHE NEEDS PCN'S AND ANTEGRADE STENTS CONT LOW DOSE LASIX ONCOLOGY FOLLOWING D/W PT - SHE IS AGREEABLE NOW HAVE D/W IR WILL FOLLOW EPIFANIO BARDALES MD Jan 03, 2019 10:56
--- NOTE | 2019-01-03 12:43 | NUR ---
SS following up with discharge planning. Pt is currently on room air. No PT/OT needs noted at this time. SS will continue to follow for discharge planning.
--- NOTE | 2019-01-03 13:29 | PDOC ---
PROGRESS NOTES Subjective Subjective Patient c/o pain and states it si being managed well currently, Patient just back from V/Q scan esult pending. Patient has agreed to percutaneous nephrostomy tube. Patient also planning mediastinal palliative rad treatment. Objective Objective Vital Signs Date Time Temp Pulse Resp B/P (MAP) Pulse Ox O2 Delivery O2 Flow Rate FiO2 01/03/19 11:00 98.2 96 18 108/51 (70) 97 Room Air 98.2 01/03/19 08:00 2.0 Intake and Output 01/03/19 06:59 Intake Total 1350 ml Output Total 2100 ml Balance -750 ml Intake Oral 1350 ml Output Urine Total 2100 ml # Voids 4 Physical Exam Abdomen: Normal bowel sounds Heart: Regular rate Extremities: Other (2+ edema BLE L>R) General: Alert Lungs: Clear to auscultation Assessment Assessment 1. Acute renal failure with CKD III - suspected to be due to the Keytruda.But also has hydronephrosis 2. metastatic cervical cancer - slowly progressing. Keytruda on hold presently. Hgb down to 7.6 today. Pain appears well controlled with frequent Fentanyl, continue per Dr Raines. 3. L pleural effusion - new for patient, s/p thoracentesis 12/31/18 4. HTN - BP's somewhat low Plan Plan of Care Nephrostomy tube in AM Continue Pain control Palliative rad treatment planned Resume Chemo once renal status and HGB stable Comment Review of Relevant I have reviewed the following items heather (where applicable) has been applied. Labs Laboratory Tests Test 01/02/19 06:25 01/03/19 06:25 Sodium Level 143 mmol/L (136-145) 140 mmol/L (136-145) Potassium Level 3.6 mmol/L (3.5-5.1) 3.5 mmol/L (3.5-5.1) Chloride Level 108 mmol/L (98-107) 105 mmol/L (98-107) Carbon Dioxide Level 23 mmol/L (21-32) 22 mmol/L (21-32) Anion Gap 12 (6-14) 13 (6-14) Blood Urea Nitrogen 26 mg/dL (7-20) 30 mg/dL (7-20) Creatinine 3.0 mg/dL (0.6-1.0) 3.2 mg/dL (0.6-1.0) Estimated GFR (Cockcroft-Gault) 17.5 16.2 Glucose Level 93 mg/dL (70-99) 106 mg/dL (70-99) Calcium Level 8.8 mg/dL (8.5-10.1) 9.0 mg/dL (8.5-10.1) Laboratory Tests Test 01/03/19 06:25 Sodium Level 140 mmol/L (136-145) Potassium Level 3.5 mmol/L (3.5-5.1) Chloride Level 105 mmol/L (98-107) Carbon Dioxide Level 22 mmol/L (21-32) Anion Gap 13 (6-14) Blood Urea Nitrogen 30 mg/dL (7-20) Creatinine 3.2 mg/dL (0.6-1.0) Estimated GFR (Cockcroft-Gault) 16.2 Glucose Level 106 mg/dL (70-99) Calcium Level 9.0 mg/dL (8.5-10.1) Microbiology 12/29/18 Blood Culture - Preliminary, Resulted NO GROWTH AFTER 4 DAYS 12/29/18 Urine Culture - Final, Complete 12/29/18 Urine Culture Result 1 (FUNMI) - Final, Complete 12/29/18 Antimicrobic Susceptibility - Final, Complete Medications Current Medications Sodium Chloride 1,000 ml @ 1,000 mls/hr 1X ONCE IV Last administered on 12/29/18at 14:27; Start 12/29/18 at 14:15; Stop 12/29/18 at 15:14; Status DC Fentanyl Citrate (Fentanyl 2ml Vial) 50 mcg 1X ONCE IV Last administered on 12/29/18at 14:31; Start 12/29/18 at 14:15; Stop 12/29/18 at 14:16; Status DC Fentanyl Citrate (Fentanyl 2ml Vial) 75 mcg 1X ONCE IV Last administered on 12/29/18at 15:09; Start 12/29/18 at 15:15; Stop 12/29/18 at 15:16; Status DC Fentanyl Citrate (Fentanyl 2ml Vial) 75 mcg 1X ONCE IV Last administered on 12/29/18at 15:42; Start 12/29/18 at 15:45; Stop 12/29/18 at 15:46; Status DC Ceftriaxone Sodium (Rocephin) 1 gm 1X ONCE IVP Last administered on 12/29/18at 17:01; Start 12/29/18 at 16:30; Stop 12/29/18 at 16:31; Status DC Doxycycline Hyclate 100 mg/ Dextrose 100 ml @ 50 mls/hr 1X ONCE IV Last administered on 12/29/18at 17:02; Start 12/29/18 at 16:30; Stop 12/29/18 at 18:29; Status DC Fentanyl Citrate (Fentanyl 2ml Vial) 50 mcg PRN Q1HR PRN IV PAIN Last administered on 12/29/18at 16:53; Start 12/29/18 at 16:45; Stop 12/29/18 at 18 :55; Status DC Sodium Chloride 1,000 ml @ 100 mls/hr Q10H IV Last administered on 12/30/18at 12:31; Start 12/29/18 at 16:31; Stop 12/30/18 at 16:30; Status DC Fentanyl Citrate (Fentanyl 2ml Vial) 75 mcg Q2HR PRN IV PAIN Last administered on 01/03/19at 08:16; Start 12/29/18 at 19:00 Methadone HCl (Dolophine) 7.5 mg Q8HRS PO ; Start 12/29/18 at 22:00; Status UNV Methadone HCl (Dolophine) 7.5 mg Q8HRS PO Last administered on 01/03/19at 06:15; Start 12/29/18 at 22:00 Docusate Sodium (Colace) 100 mg BID PRN PO HARD STOOLS; Start 12/29/18 at 19:15 Polyethylene Glycol (miraLAX PACKET) 17 gm PRN DAILY PRN PO CONSTIPATION; Start 12/29/18 at 19:15 Pharmacy Consult (C.diff Med Screen By Rx) 1 each 1X ONCE [facility] ; Start 12/30/18 at 09:00; Stop 12/30/18 at 09:01; Status Cancel Cyclobenzaprine HCl (Flexeril) 10 mg PRN TID PRN PO back pain; Start 12/30/18 at 09:00 Docusate Sodium (Colace) 100 mg DAILY PO Last administered on 01/03/19at 08:06; Start 12/30/18 at 09:00 Lisinopril (Prinivil) 10 mg DAILY PO ; Start 12/30/18 at 09:00; Stop 12/31/18 at 08:39; Status DC Polyethylene Glycol (miraLAX PACKET) 17 gm PRN DAILY PRN PO CONSTIPATION; Start 12/30/18 at 09:00; Stop 12/30/18 at 09:19; Status DC Zolpidem Tartrate (Ambien) 5 mg QHS PRN PO INSOMNIA Last administered on 01/01/19at 22:04; Start 12/30/18 at 09:00 Gabapentin (Neurontin) 600 mg BID PO Last administered on 01/03/19at 08:05; Start 12/30/18 at 09:00 Pantoprazole Sodium (Protonix) 40 mg DAILYAC PO Last administered on 01/03/19at 08:06; Start 12/30/18 at 09:00 Furosemide (Lasix) 40 mg BID92 PO Last administered on 01/03/19at 08:05; Start 01/01/19 at 11:00 Lisinopril (Prinivil) 2.5 mg DAILY PO ; Start 01/03/19 at 09:00 Heparin Sodium (Porcine) (Heparin Sodium) 5,000 unit Q8HRS SQ ; Start 01/03/19 at 14:00 Active Scripts Active Klor-Con M20 (Potassium Chloride) 20 Meq Tab.er.prt 20 Meq PO DAILY 30 Days Polyethylene Glycol 3350 17 Gm Powd.pack 17 Gm PO PRN DAILY PRN 30 Days Colace (Docusate Sodium) 100 Mg Capsule 100 Mg PO DAILY MDD 30 30 Days Reported Keytruda (Pembrolizumab) 100 Mg/4 Ml Vial Unknown Dose IV WEEKLY Methadone Hcl 5 Mg Tablet 1.5 Tab PO Q8HRS Oxycodone Hcl 5 Mg Capsule 1-3 Tab PO PRN Q3HRS PRN Lisinopril 20 Mg Tablet 10 Mg PO DAILY Gabapentin 600 Mg Tablet 600 Mg PO BID Prevacid (Lansoprazole) 30 Mg Capsule.dr 30 Mg PO DAILY Cyclobenzaprine Hcl 10 Mg Tablet 10 Mg PO PRN TID PRN Phenergan (Promethazine HCl) 12.5 Mg Supp.rect 12.5 Mg RC PRN Q12HR PRN Ambien (Zolpidem Tartrate) 5 Mg Tablet 1 Tab PO QHS PRN Vitals/I & O Vital Sign - Last 24 Hours 01/02/19 01/02/19 01/02/19 01/02/19 13:41 14:07 14:39 14:39 O2 Delivery Room Air Room Air Room Air Room Air 01/02/19 01/02/19 01/02/19 01/02/19 15:05 16:53 17:37 19:30 Temp 97.9 98.9 97.9 98.9 Pulse 93 88 Resp 18 18 B/P (MAP) 102/61 (75) 104/57 (73) Pulse Ox 97 94 O2 Delivery Room Air Room Air Room Air Room Air 01/02/19 01/03/19 01/03/19 01/03/19 20:00 00:00 03:42 07:00 Temp 99.1 99.3 98.8 99.1 99.3 98.8 Pulse 87 91 98 Resp 18 16 18 B/P (MAP) 109/61 (77) 99/51 (67) 108/53 (71) Pulse Ox 94 91 93 O2 Delivery Room Air Room Air Room Air Room Air 01/03/19 01/03/19 01/03/19 01/03/19 07:15 08:00 08:16 08:23 Pulse 98 B/P (MAP) 108/53 O2 Delivery Room Air Room Air Room Air O2 Flow Rate 2.0 01/03/19 01/03/19 08:46 11:00 Temp 98.2 98.2 Pulse 96 Resp 18 B/P (MAP) 108/51 (70) Pulse Ox 97 O2 Delivery Room Air Room Air Intake and Output 01/02/19 01/02/19 01/03/19 14:59 22:59 06:59 Intake Total 500 ml 250 ml 600 ml Output Total 2100 ml Balance 500 ml 250 ml -1500 ml WINNIE VAZ MD Jan 03, 2019 13:29
[2019-01-03] MEDS: HEPARIN for SUB-Q USE 5,000 UNIT/ML VIAL. SQ SCH ×2 (14:00→20:55)
--- NOTE | 2019-01-03 16:13 | RAD ---
V/Q LUNG SCAN CLINICAL INDICATIONS: Hypoxia. Acute renal failure. History of cancer. COMPARISON: No previous lung scan available. Chest x-ray dated December 31, 2018. TECHNIQUE: After inhalation of 27 mCi of Xenon 133 gas, anterior and posterior planar images of the lung ervin were performed in the single breath and equilibrium and washout phases. After IV infusion of 6 mCi of technetium 99m MAA, multiplanar images of both lung ervin were performed. FINDINGS: Ventilatory defects are seen within both lung bases. Matching perfusion defects are seen within both lung bases. No other segmental perfusion defect is seen. IMPRESSION: Matched ventilation and perfusion defects of the lung bases corresponding to left pleural effusion and left lung base infiltrate and right lung base atelectasis on the chest x-ray. Therefore, the overall probability for pulmonary embolism is low. Electronically signed by: Tio Reyes MD (01/03/2019 4:10 PM) [id number]
--- NOTE | 2019-01-03 17:09 | CONS ---
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 She now has widespread progression of disease with biopsy proven recurrence in the base of the bladder as well as progressive mediastinal and cervical adenopathy. She now has upper central chest and neck pain and a sense of tightening around her neck due to disease progression. We were asked to see her regarding the role of palliative radiation in her care. ICD-10: C53.9, C77.2, C77.1, and C79.11. HISTORY OF PRESENT ILLNESS: The patient is a 38-year-old woman who has had initial stage 4 (T2 N1 M1) squamous cell carcinoma of the cervix, diagnosed following hysterectomy in 04/2017. At hysterectomy, she was found to have persistent disease at the cervical and parametrial resection margins present at the vaginal cuff as well as pelvic and periaortic adenopathy seen on PET-CT imaging. She received comprehensive salvage radiation treatment to her pelvis, vaginal cuff, and periaortic region with cisplatin chemotherapy. Treatment was completed here in 08/2017 with an initial excellent response. Following this, she had disease progression in her supraclavicular and mediastinal lymph node regions confirmed by biopsy of the left supraclavicular region in 10/2017. She then was on salvage chemotherapy with 6 cycles of carboplatin, Taxol, and Avastin from 11/2017 followed by maintenance Avastin through 06/2018. She then had disease progression and was placed on Keytruda. She was admitted on 12/30/2018 as a result of increasing renal failure with previous baseline creatinine of 1.6 to 2 increasing to 4 prior to admission. Notable in 09/2018, she underwent cystoscopy at which time floor of the bladder was diffusely abnormal with bullous changes and erythema throughout. Neither ureteral orifice could be identified. Tissue was friable and bled easily. Three biopsies of the floor of the bladder revealed invasive squamous cell carcinoma extending into the lamina propria. CT scan of the abdomen and pelvis on 12/29/2018 revealed stable right-sided hydronephrosis with good preservation of renal parenchyma on my review and new mild left-sided pelvocaliectasis on the left side. There was mild wall thickening involving the sigmoid and rectum; inflammatory change in the pelvis, nonspecific and may be post-treatment related; stable left pelvic sidewall left common iliac adenopathy. No overt malignancy seen in the bladder, but no bladder contrast was present. Also present was significant left pleural effusion, increased in size from the previous imaging from November. CT scan of the cervical spine revealed generalized progression of significant inferior cervical and supraclavicular adenopathy, worse on the left than on the right and extending into the upper mediastinum. Partially visualized left pleural effusion was noted. She underwent thoracentesis and removal of 900 mL of left pleural effusion on 12/31/2018. Cytology pending at this time. She is now scheduled to undergo bilateral nephrostomy tubes for renal preservation and drainage. She may then undergo antegrade stent placement after this. As noted above, she has upper chest pain and modest neck pain making it difficult to move the neck around over the last 2 weeks. She is swallowing well, but she has collar-like constriction in her neck, which makes her feel taking a deep breath is restricted. She is able to lie flat. She has no headache, nausea, or vomiting. She has no pelvic pain. She has inability to feel or tell when her bladder is full. As a result, she has incontinence and now wears a diaper during the day. She has normal bowel function. She has had to reduce her workload here. 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 She has had disease and treatment related chronic anemia and has had recent transfusions over the last 2 months. PAST MEDICAL HISTORY: Remarkable for hypertension, renal insufficiency following her diagnosis of cervical cancer, and chronic anemia. ALLERGIES: ZOFRAN. MEDICATIONS: See hospital list. SOCIAL HISTORY: She has a significant life partner, Maria Elena Carlson. Three adopted children with Ms. Carlson, all now in preschool or school. Distant history of smoking, quit in 03/2017. Social drinker. 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 FAMILY HISTORY: Maternal grandmother had uterine carcinoma. PHYSICAL EXAMINATION: GENERAL: Revealed a pleasant and articulate woman, in no acute distress. She had no hoarseness or stridor. HEENT: Unremarkable. LYMPH NODES: She had bulky confluent adenopathy in her inferior cervical and left supraclavicular region. She had 2 or 3 palpable 2 cm nodes in the right supraclavicular region. LUNGS: Clear. No stridor, rhonchi, or wheezes. HEART: Regular without murmur or gallop. ABDOMEN: Unremarkable. EXTREMITIES: She had significant chronic bilateral pedal edema. LABORATORY STUDIES: Current laboratory studies on 01/03/2019; creatinine 3.2 and calcium 9.0. On 12/31/2018; hemoglobin 7.6, white count 4700, and platelet count 228,000. ASSESSMENT AND PLAN: In summary, my impression is that of progression of stage 4 cervical carcinoma, now with ongoing bulky disease in her inferior cervical and supraclavicular region extending into the mediastinum causing tightness with neck and chest pain. A short course of palliative radiation to these sites is rational in an effort to reduce tumor bulk and improve her symptoms. Currently, she will undergo bilateral nephrostomy tubes on 01/04/2019. We will see her thereafter to assess her readiness to undergo palliative radiation treatment. I had a thorough discussion with the patient and her partner regarding need to address advanced directives. She understood this. She will continue to see Dr. Raines to address ongoing systemic management. At this time, she is apparently not eligible for any clinical trials at . They may consider gemcitabine versus supportive palliative care alone. Thank you for allowing us to participate in her re-assessment. COLETTE MOODY MD DR: JONI/kristopher JOB#: [id number] / [id number] ALYSSA Savage MD
[2019-01-04] VITALS (13 sets, daily range): BP systolic 67–117; BP diastolic 50–81
[2019-01-04] MEDS: fentaNYL PF VIAL 100 MCG/2 ML VIAL IV PRN ×13 (00:23→23:13)
[2019-01-04] MEDS: METHADONE 5 MG TABLET. PO SCH ×3 (05:28→20:56)
[2019-01-04] MEDS: HEPARIN for SUB-Q USE 5,000 UNIT/ML VIAL. SQ SCH ×3 (06:00→22:00)
[2019-01-04 06:18] LABS: CALCIUM 9.4 mg/dL (8.5-10.1); CREATININE 3.7 mg/dL (0.6-1.0); GFR 13.7; POTASSIUM 3.4 mmol/L (3.5-5.1)
[2019-01-04] MEDS: PANTOPRAZOLE 40 MG TABLET.DR. PO SCH (07:30)
[2019-01-04] MEDS: FUROSEMIDE 40 MG TABLET. PO SCH ×2 (07:39→14:20)
[2019-01-04] MEDS: DOCUSATE SODIUM 100 MG CAPSULE. PO SCH (07:39)
[2019-01-04] MEDS: GABAPENTIN 300 MG CAPSULE. PO SCH ×2 (07:40→20:54)
[2019-01-04] MEDS: LISINOPRIL 5 MG TABLET. PO SCH (07:40)
[2019-01-04] MEDS ORDERED: LIDOCAINE WITH 8.4% SOD BICARB 3 ML DISP.SYRIN. ONE (08:55)
[2019-01-04] MEDS ORDERED: IODIXANOL 320 MG/ML 50ML VIAL. ONE (08:56)
[2019-01-04] MEDS ORDERED: fentaNYL PF VIAL 100 MCG/2 ML VIAL ONE ×3 (09:15→09:51)
[2019-01-04] MEDS ORDERED: MIDAZOLAM HCL/PF 2 MG/2 ML VIAL. ONE ×2 (09:15→09:36)
--- NOTE | 2019-01-04 09:18 | PDOC ---
SUBJECTIVE Subjective S: off O2, V/Q low prob, getting PCN tubes today, parents in room today O: Gen: NAD, off O2, speaking w/o trouble Psych: pleasant mood and affect Labs: UA cx w/ bacteria Rads: layering L eff w/ atx V/Q scan low prob Assessment and Plan: Marivel is a 38-year-old female with metastatic cervical cancer, recently on pembrolizumab palliatively, admitted with clinically progressive disease and renal failure, and slight hypoxia on O2 intermittently, s/p thoracentesis 12/31 w/ 900 cc fluid w/drawn UTI: UA cx w/ e faecalis, defer to primary Renal failure: Appreciate urology input, getting hydration, and nephrostomy tubes today Pleural effusion with atx: s/p L thoracentesis w/ cytology (should be pending) chest pain/dyspnea: V/Q scan low prob, on hep ppx w/ elev Cr, on O2 prn, pending pall RT w/ Dr Samuel, apprec his assistance Lower extremity edema: Left greater than right, chronic, ultrasounds have been negative for clot recently, can use compression stockings as needed, was to get outpatient stress test after last admit Metastatic cervical cancer: Clinically progressive disease, no clinical trial available at , (potential vaccine trial, she would have to travel likely [id number], renal function likely would preclude) could consider next line gemcitabine days 1 and 8 and 15 q 28 versus palliative care. We will continue her methadone 7.5 mg 3 times a day and fentanyl 75 g every 2 hours prn, w/ Colace and MiraLAX when necessary. Fentanyl 50 did not adequately treat the pain at recent admit, morphine causes nausea and mental status changes. pending pall RT Prophylaxis: heparin prophylaxis Recent rectal bleeding: was pending colonoscopy as outpatient after recent admit, scans suggest possible colitis though no signif sx now Disposition: After continued clinical improvement, appreciate multidisciplinary care Thank you kindly, and please don't hesitate to call with any further questions. OBJECTIVE Vital Signs Vital Signs Date Time Temp Pulse Resp B/P (MAP) Pulse Ox O2 Delivery O2 Flow Rate FiO2 01/04/19 07:46 Room Air 01/04/19 07:16 Nasal Cannula 01/04/19 07:00 98.1 84 18 98/55 (69) 93 Room Air 98.1 01/04/19 06:28 Room Air 01/04/19 05:58 Room Air 01/04/19 05:28 Room Air 01/04/19 05:28 Room Air 01/04/19 03:00 98.1 85 18 102/55 (71) 92 Room Air 98.1 01/04/19 00:53 Room Air 01/04/19 00:23 Room Air 01/03/19 23:00 98.3 106 18 98/53 (68) 93 Room Air 98.3 01/03/19 22:09 Room Air 01/03/19 21:40 Room Air 01/03/19 21:10 Room Air 01/03/19 21:09 Room Air 01/03/19 20:00 Room Air 01/03/19 19:00 98.6 98 18 110/68 (82) 92 Room Air 98.6 01/03/19 17:53 Room Air 01/03/19 17:23 Room Air 01/03/19 16:15 Room Air 01/03/19 15:44 Room Air 01/03/19 15:15 Room Air 01/03/19 15:14 Room Air 01/03/19 15:00 98.4 104 20 108/59 (75) 92 Room Air 98.4 01/03/19 11:00 98.2 96 18 108/51 (70) 97 Room Air 98.2 I & O Intake and Output 01/04/19 06:59 Intake Total 1440 ml Output Total 700 ml Balance 740 ml Intake Oral 1440 ml Output Urine Total 700 ml # Voids 4 COMMENT Lab Laboratory Tests Test 01/04/19 05:45 Sodium Level 139 mmol/L (136-145) Potassium Level 3.4 mmol/L (3.5-5.1) Chloride Level 103 mmol/L (98-107) Carbon Dioxide Level 22 mmol/L (21-32) Anion Gap 14 (6-14) Blood Urea Nitrogen 34 mg/dL (7-20) Creatinine 3.7 mg/dL (0.6-1.0) Estimated GFR (Cockcroft-Gault) 13.7 Glucose Level 100 mg/dL (70-99) Calcium Level 9.4 mg/dL (8.5-10.1) POWER MEHTA MD Jan 04, 2019 09:18
[2019-01-04] MEDS ORDERED: ceFAZolin 1GM IVPB FOR OMNI 100 ML IV ONE (09:24)
[2019-01-04] MEDS ORDERED: MIDAZOLAM HCL/PF 2 MG/2 ML VIAL. IV ONE (09:45)
[2019-01-04] MEDS ORDERED: fentaNYL PF VIAL 100 MCG/2 ML VIAL IV ONE (09:45)
[2019-01-04] MEDS ORDERED: LIDOCAINE WITH 8.4% SOD BICARB 3 ML DISP.SYRIN. IJ ONE (09:45)
[2019-01-04] MEDS ORDERED: IODIXANOL 320 MG/ML 50ML VIAL. IART ONE (09:45)
--- NOTE | 2019-01-04 10:57 | PDOC ---
Renal-Progress Notes Subjective Notes Notes NONE History of Present Illness Hx of present illness NO CHANGE Vitals Vitals Vital Signs Date Time Temp Pulse Resp B/P (MAP) Pulse Ox O2 Delivery O2 Flow Rate FiO2 01/04/19 10:24 100 13 98 Nasal Cannula 2.0 01/04/19 07:00 98.1 98/55 (69) 98.1 Weight Weight [ ] I.O. Intake and Output Intake and Output 01/04/19 07:00 Intake Total 1440 ml Output Total 700 ml Balance 740 ml Intake Oral 1440 ml Output Urine Total 700 ml # Voids 4 Labs Labs Laboratory Tests Test 01/04/19 05:45 Sodium Level 139 mmol/L (136-145) Potassium Level 3.4 mmol/L (3.5-5.1) Chloride Level 103 mmol/L (98-107) Carbon Dioxide Level 22 mmol/L (21-32) Anion Gap 14 (6-14) Blood Urea Nitrogen 34 mg/dL (7-20) Creatinine 3.7 mg/dL (0.6-1.0) Estimated GFR (Cockcroft-Gault) 13.7 Glucose Level 100 mg/dL (70-99) Calcium Level 9.4 mg/dL (8.5-10.1) Micro Micro Microbiology 12/29/18 Blood Culture - Final, Complete NO GROWTH AFTER 5 DAYS 12/29/18 Urine Culture - Final, Complete 12/29/18 Urine Culture Result 1 (FUNMI) - Final, Complete 12/29/18 Antimicrobic Susceptibility - Final, Complete Review of Systems Constitutional: yes: alert, oriented Ears/Nose/Throat: Yes: no symptom reported Eyes: Yes: no symptom reported Cardiovascular: Yes edema Gastrointestional: Yes: constipation Genitourinary: Yes: no symptom reported Musculoskeletal: Yes: muscle stiffness Skin: Yes no symptom reported Psychiatric/Neurological: Yes: no symptom reported Endocrine: Yes: no symptom reported Physical Exam General Appearance: no apparent distress Skin: warm Respiratory: decreased breath sounds Heart: S1S2 Abdomen: soft Extremities: edema Neurology: alert Musculoskeletal: Other Assessment Assessment IMP BRANDIN-OVERALL WORSE CKD STAGE 3 WITH CR OF 1.5-2.0 BILATERAL HYDRONEPHROSIS MET CERVICAL CANCER-ONC FOLLOWING ANEMIA-HEME FOLLOWING EDEMA PLAN PCN TODAY WITH HOPES FOR ANTEGRADE STENT LATER CONT LOW DOSE LASIX ONCOLOGY FOLLOWING HAVE D/W IR WILL FOLLOW EPIFANIO BARDALES MD Jan 04, 2019 10:57
--- NOTE | 2019-01-04 13:12 | PDOC ---
PROGRESS NOTES Subjective Subjective Patient immediately post nephrology tube c/o increased pain. Urine Clx + Objective Objective Vital Signs Date Time Temp Pulse Resp B/P (MAP) Pulse Ox O2 Delivery O2 Flow Rate FiO2 01/04/19 12:10 Room Air 01/04/19 11:00 98.0 94 18 99/66 (77) 93 98.0 01/04/19 10:24 2.0 Intake and Output 01/04/19 07:00 Intake Total 1440 ml Output Total 700 ml Balance 740 ml Intake Oral 1440 ml Output Urine Total 700 ml # Voids 4 Physical Exam Abdomen: Normal bowel sounds Heart: Regular rate Extremities: Other (2+ edema) General: Alert Lungs: Clear to auscultation Assessment Assessment Acute renal failure with CKD III - suspected to be due to the Keytruda.But also has hydronephrosis metastatic cervical cancer - slowly progressing. Keytruda on hold presently. Hgb down to 7.6 today. Pain appears well controlled with frequent Fentanyl, continue per Dr Raines. Astrid pleural effusion - new for patient, s/p thoracentesis 12/31/18 HTN - BP's somewhat low UTI Plan Plan of Care Nephrostomy tube Placed Continue Pain control Palliative rad treatment planned Resume Chemo once renal status and HGB stable Treat UTI levaquin 500 mg q day x 1 week Increase fentanyl to Q 1hr Comment Review of Relevant I have reviewed the following items heather (where applicable) has been applied. Labs Laboratory Tests Test 01/03/19 06:25 01/04/19 05:45 Sodium Level 140 mmol/L (136-145) 139 mmol/L (136-145) Potassium Level 3.5 mmol/L (3.5-5.1) 3.4 mmol/L (3.5-5.1) Chloride Level 105 mmol/L (98-107) 103 mmol/L (98-107) Carbon Dioxide Level 22 mmol/L (21-32) 22 mmol/L (21-32) Anion Gap 13 (6-14) 14 (6-14) Blood Urea Nitrogen 30 mg/dL (7-20) 34 mg/dL (7-20) Creatinine 3.2 mg/dL (0.6-1.0) 3.7 mg/dL (0.6-1.0) Estimated GFR (Cockcroft-Gault) 16.2 13.7 Glucose Level 106 mg/dL (70-99) 100 mg/dL (70-99) Calcium Level 9.0 mg/dL (8.5-10.1) 9.4 mg/dL (8.5-10.1) Laboratory Tests Test 01/04/19 05:45 Sodium Level 139 mmol/L (136-145) Potassium Level 3.4 mmol/L (3.5-5.1) Chloride Level 103 mmol/L (98-107) Carbon Dioxide Level 22 mmol/L (21-32) Anion Gap 14 (6-14) Blood Urea Nitrogen 34 mg/dL (7-20) Creatinine 3.7 mg/dL (0.6-1.0) Estimated GFR (Cockcroft-Gault) 13.7 Glucose Level 100 mg/dL (70-99) Calcium Level 9.4 mg/dL (8.5-10.1) Microbiology 12/29/18 Blood Culture - Final, Complete NO GROWTH AFTER 5 DAYS 12/29/18 Urine Culture - Final, Complete 12/29/18 Urine Culture Result 1 (FUNMI) - Final, Complete 12/29/18 Antimicrobic Susceptibility - Final, Complete Medications Current Medications Sodium Chloride 1,000 ml @ 1,000 mls/hr 1X ONCE IV Last administered on 12/29/18at 14:27; Start 12/29/18 at 14:15; Stop 12/29/18 at 15:14; Status DC Fentanyl Citrate (Fentanyl 2ml Vial) 50 mcg 1X ONCE IV Last administered on 12/29/18at 14:31; Start 12/29/18 at 14:15; Stop 12/29/18 at 14:16; Status DC Fentanyl Citrate (Fentanyl 2ml Vial) 75 mcg 1X ONCE IV Last administered on 12/29/18at 15:09; Start 12/29/18 at 15:15; Stop 12/29/18 at 15:16; Status DC Fentanyl Citrate (Fentanyl 2ml Vial) 75 mcg 1X ONCE IV Last administered on 12/29/18at 15:42; Start 12/29/18 at 15:45; Stop 12/29/18 at 15:46; Status DC Ceftriaxone Sodium (Rocephin) 1 gm 1X ONCE IVP Last administered on 12/29/18at 17:01; Start 12/29/18 at 16:30; Stop 12/29/18 at 16:31; Status DC Doxycycline Hyclate 100 mg/ Dextrose 100 ml @ 50 mls/hr 1X ONCE IV Last administered on 12/29/18at 17:02; Start 12/29/18 at 16:30; Stop 12/29/18 at 18:29; Status DC Fentanyl Citrate (Fentanyl 2ml Vial) 50 mcg PRN Q1HR PRN IV PAIN Last administered on 12/29/18at 16:53; Start 12/29/18 at 16:45; Stop 12/29/18 at 18:55; Status DC Sodium Chloride 1,000 ml @ 100 mls/hr Q10H IV Last administered on 12/30/18at 12:31; Start 12/29/18 at 16:31; Stop 12/30/18 at 16:30; Status DC Fentanyl Citrate (Fentanyl 2ml Vial) 75 mcg Q2HR PRN IV PAIN Last administered on 01/04/19at 12:10; Start 12/29/18 at 19:00 Methadone HCl (Dolophine) 7.5 mg Q8HRS PO ; Start 12/29/18 at 22:00; Status UNV Methadone HCl (Dolophine) 7.5 mg Q8HRS PO Last administered on 01/04/19at 05:28; Start 12/29/18 at 22:00 Docusate Sodium (Colace) 100 mg BID PRN PO HARD STOOLS; Start 12/29/18 at 19:15 Polyethylene Glycol (miraLAX PACKET) 17 gm PRN DAILY PRN PO CONSTIPATION; Start 12/29/18 at 19:15 Pharmacy Consult (C.diff Med Screen By Rx) 1 each 1X ONCE [facility] ; Start 12/30/18 at 09:00; Stop 12/30/18 at 09:01; Status Cancel Cyclobenzaprine HCl (Flexeril) 10 mg PRN TID PRN PO back pain; Start 12/30/18 at 09:00 Docusate Sodium (Colace) 100 mg DAILY PO Last administered on 01/03/19at 08:06; Start 12/30/18 at 09:00 Lisinopril (Prinivil) 10 mg DAILY PO ; Start 12/30/18 at 09:00; Stop 12/31/18 at 08:39; Status DC Polyethylene Glycol (miraLAX PACKET) 17 gm PRN DAILY PRN PO CONSTIPATION; Start 12/30/18 at 09:00; Stop 12/30/18 at 09:19; Status DC Zolpidem Tartrate (Ambien) 5 mg QHS PRN PO INSOMNIA Last administered on 01/01/19at 22:04; Start 12/30/18 at 09:00 Gabapentin (Neurontin) 600 mg BID PO Last administered on 01/03/19at 21:09; Start 12/30/18 at 09:00 Pantoprazole Sodium (Protonix) 40 mg DAILYAC PO Last administered on 01/03/19at 08:06; Start 12/30/18 at 09:00 Furosemide (Lasix) 40 mg BID92 PO Last administered on 01/03/19at 15:14; Start 01/01/19 at 11:00 Lisinopril (Prinivil) 2.5 mg DAILY PO ; Start 01/03/19 at 09:00 Heparin Sodium (Porcine) (Heparin Sodium) 5,000 unit Q8HRS SQ ; Start 01/03/19 at 14:00 Lidocaine HCl (Buffered Lidocaine 1%) 3 ml STK-MED ONCE .ROUTE ; Start 01/04/19 at 08:55; Stop 01/04/19 at 08:56; Status DC Iodixanol (Visipaque 320) 50 ml STK-MED ONCE .ROUTE ; Start 01/04/19 at 08:56; Stop 01/04/19 at 08:56; Status DC Midazolam HCl (Versed) 2 mg STK-MED ONCE .ROUTE ; Start 01/04/19 at 09:15; Stop 01/04/19 at 09:16; Status DC Fentanyl Citrate (Fentanyl 2ml Vial) 100 mcg STK-MED ONCE .ROUTE ; Start 01/04/19 at 09:15; Stop 01/04/19 at 09:16; Status DC Cefazolin Sodium 100 ml @ As Directed STK-MED ONCE IV ; Start 01/04/19 at 09:24; Stop 01/04/19 at 09:25; Status DC Midazolam HCl (Versed) 2 mg STK-MED ONCE .ROUTE ; Start 01/04/19 at 09:36; Stop 01/04/19 at 09:36; Status DC Fentanyl Citrate (Fentanyl 2ml Vial) 100 mcg STK-MED ONCE .ROUTE ; Start 01/04/19 at 09:36; Stop 01/04/19 at 09:37; Status DC Lidocaine HCl (Buffered Lidocaine 1%) 3 ml 1X ONCE IJ Last administered on 01/04/19 09:45; Start 01/04/19 at 09:45; Stop 01/04/19 at 09:48; Status DC Midazolam HCl (Versed) 2 mg 1X ONCE IV Last administered on 01/04/19 09:45; Start 01/04/19 at 09:45; Stop 01/04/19 at 09:48; Status DC Fentanyl Citrate (Fentanyl 2ml Vial) 100 mcg 1X ONCE IV Last administered on 01/04/19 09:45; Start 01/04/19 at 09:45; Stop 01/04/19 at 09:48; Status DC Cefazolin Sodium 50 ml @ 100 mls/hr 1X ONCE IV Last administered on 01/04/19at 09:45; Start 01/04/19 at 09:45; Stop 01/04/19 at 10:14; Status DC Iodixanol (Visipaque 320) 50 ml 1X ONCE IART Last administered on 01/04/19at 09:45; Start 01/04/19 at 09:45; Stop 01/04/19 at 09:48; Status DC Cefazolin Sodium 50 ml @ 100 mls/hr 1X ONCE IV Last administered on 01/04/19 09:45; Start 01/04/19 at 09:45; Stop 01/04/19 at 10:14; Status DC Fentanyl Citrate (Fentanyl 2ml Vial) 100 mcg STK-MED ONCE .ROUTE ; Start 01/04/19 at 09:51; Stop 01/04/19 at 09:52; Status DC Active Scripts Active Klor-Con M20 (Potassium Chloride) 20 Meq Tab.er.prt 20 Meq PO DAILY 30 Days Polyethylene Glycol 3350 17 Gm Powd.pack 17 Gm PO PRN DAILY PRN 30 Days Colace (Docusate Sodium) 100 Mg Capsule 100 Mg PO DAILY MDD 30 30 Days Reported Keytruda (Pembrolizumab) 100 Mg/4 Ml Vial Unknown Dose IV WEEKLY Methadone Hcl 5 Mg Tablet 1.5 Tab PO Q8HRS Oxycodone Hcl 5 Mg Capsule 1-3 Tab PO PRN Q3HRS PRN Lisinopril 20 Mg Tablet 10 Mg PO DAILY Gabapentin 600 Mg Tablet 600 Mg PO BID Prevacid (Lansoprazole) 30 Mg Capsule.dr 30 Mg PO DAILY Cyclobenzaprine Hcl 10 Mg Tablet 10 Mg PO PRN TID PRN Phenergan (Promethazine HCl) 12.5 Mg Supp.rect 12.5 Mg RC PRN Q12HR PRN Ambien (Zolpidem Tartrate) 5 Mg Tablet 1 Tab PO QHS PRN Vitals/I & O Vital Sign - Last 24 Hours 01/03/19 01/03/19 01/03/19 01/03/19 15:00 15:14 15:15 15:44 Temp 98.4 98.4 Pulse 104 Resp 20 B/P (MAP) 108/59 (75) Pulse Ox 92 O2 Delivery Room Air Room Air Room Air Room Air 01/03/19 01/03/19 01/03/19 01/03/19 16:15 17:23 17:53 19:00 Temp 98.6 98.6 Pulse 98 Resp 18 B/P (MAP) 110/68 (82) Pulse Ox 92 O2 Delivery Room Air Room Air Room Air Room Air 01/03/19 01/03/19 01/03/19 01/03/19 20:00 21:09 21:10 21:40 O2 Delivery Room Air Room Air Room Air Room Air 01/03/19 01/03/19 01/04/19 01/04/19 22:09 23:00 00:23 00:53 Temp 98.3 98.3 Pulse 106 Resp 18 B/P (MAP) 98/53 (68) Pulse Ox 93 O2 Delivery Room Air Room Air Room Air Room Air 01/04/19 01/04/19 01/04/19 01/04/19 03:00 05:28 05:28 05:58 Temp 98.1 98.1 Pulse 85 Resp 18 B/P (MAP) 102/55 (71) Pulse Ox 92 O2 Delivery Room Air Room Air Room Air Room Air 01/04/19 01/04/19 01/04/19 01/04/19 06:28 07:00 07:16 07:46 Temp 98.1 98.1 Pulse 84 Resp 18 B/P (MAP) 98/55 (69) Pulse Ox 93 O2 Delivery Room Air Room Air Nasal Cannula Room Air 01/04/19 01/04/19 01/04/19 01/04/19 08:00 09:45 10:24 11:00 Temp 98.0 98.0 Pulse 100 94 Resp 16 13 18 B/P (MAP) 99/66 (77) Pulse Ox 98 93 O2 Delivery Room Air Nasal Cannula Room Air O2 Flow Rate 2.0 01/04/19 12:10 O2 Delivery Room Air Intake and Output 01/03/19 01/03/19 01/04/19 15:00 23:00 07:00 Intake Total 480 ml 660 ml 300 ml Output Total 700 ml Balance 480 ml -40 ml 300 ml WINNIE VAZ MD Jan 04, 2019 13:12
[2019-01-04] MEDS ORDERED: AMOXICILLIN 250 MG CAPSULE. PO SCH (14:00)
--- NOTE | 2019-01-04 15:56 | RAD ---
Bilateral percutaneous nephrostomy tube placement with ultrasound and fluoroscopic guidance 01/04/2019 INDICATION: Bilateral obstructive hydronephrosis secondary to cervical cancer, with prior radiotherapy Discussion: The procedure was explained in its entirety to the patient or the patients designated termite control representative by a member of the treatment team, including a discussion of the risks, benefits and commonly accepted alternatives to the procedure, as well as the expected consequences of no therapy whatsoever. Discussion of the risks included, but was not limited to, those that are most frequent and those that are rare but possibly severe or life-threatening, as well as the possibility of unforeseen complications. All elements of maximal sterile barrier technique including the use of a cap, mask, sterile gown, sterile gloves, large sterile sheet, appropriate hand hygiene, and 2% chlorhexidine for cutaneous antisepsis (or acceptable alternative antiseptic per current guidelines) were followed for this procedure. Ultrasound evaluation demonstrates bilateral hydronephrosis. Posterior lateral left calyx was accessed under direct ultrasound guidance using a AccuStick kit. Contrast nephrostogram was performed, confirming moderate to severe hydronephrosis. A guidewire was advanced into the renal collecting system over which, following dilatation, an 8 Iranian nephrostomy tube was placed. The procedure was performed in identical fashion on the contralateral side. Blood-tinged urine was aspirated freely. Catheter position was confirmed with fluoroscopy. Catheter secured in place and sterile dressings were applied. Total fluoroscopy time: 8.7 min Dose area product 23: Gycm2 The procedures performed under conscious sedation including continuous cardiopulmonary monitoring via dedicated sedation nurse. [id number] sedation time: 60 minutes Impression: Bilateral percutaneous nephrostomy tube placement
--- NOTE | 2019-01-04 16:08 | PDOC ---
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 Now recovering from bilateral nephrostomy tube placements earlier today. Will address simulation tomorrow for palliative treatment to symptomatic cervical, supraclav and superior mediastinal LN treatment tomorrow by my partner, Dr Reggie Kohli. COLETTE MOODY MD Jan 04, 2019 16:08
[2019-01-04] MEDS: AMOXICILLIN 250 MG CAPSULE. PO SCH (20:54)
[2019-01-05] MEDS: fentaNYL PF VIAL 100 MCG/2 ML VIAL IV PRN ×11 (00:28→21:25)
[2019-01-05 03:00] VITALS: BP 108/61
[2019-01-05] MEDS: HEPARIN for SUB-Q USE 5,000 UNIT/ML VIAL. SQ SCH ×3 (06:00→22:00)
[2019-01-05 06:29] LABS: CALCIUM 9.3 mg/dL (8.5-10.1); CREATININE 3.4 mg/dL (0.6-1.0); GFR 15.1; MAGNESIUM 1.4 mg/dL (1.8-2.4); POTASSIUM 3.4 mmol/L (3.5-5.1)
[2019-01-05] MEDS: METHADONE 5 MG TABLET. PO SCH (06:29)
[2019-01-05 07:00] VITALS: BP 97/59
[2019-01-05] MEDS: PANTOPRAZOLE 40 MG TABLET.DR. PO SCH (07:57)
[2019-01-05] MEDS: GABAPENTIN 300 MG CAPSULE. PO SCH ×2 (07:57→21:19)
[2019-01-05] MEDS: AMOXICILLIN 250 MG CAPSULE. PO SCH ×2 (07:58→21:19)
[2019-01-05] MEDS: DOCUSATE SODIUM 100 MG CAPSULE. PO SCH (07:58)
[2019-01-05] MEDS: FUROSEMIDE 40 MG TABLET. PO SCH ×2 (07:58→14:34)
[2019-01-05] MEDS: LISINOPRIL 5 MG TABLET. PO SCH (07:59)
--- NOTE | 2019-01-05 09:45 | PDOC ---
SUBJECTIVE Subjective S: PCN tubes in, a lot of pain back w/ urination now O: Gen: in bed, in pain from recent urinating, family at bedside Psych: pleasant mood and affect Labs: UA cx w/ bacteria low Mag and K Rads: layering L eff w/ atx V/Q scan low prob Assessment and Plan: Marivel is a 38-year-old female with metastatic cervical c ancer, recently on pembrolizumab palliatively, admitted with clinically progressive disease and renal failure, and slight hypoxia on O2 intermittently, s/p thoracentesis 12/31 w/ 900 cc fluid w/drawn and recent percutaneous nephrostomy tubes placed 01/04 UTI: UA cx w/ e faecalis, on amox Renal failure: Appreciate urology input, getting hydration, and nephrostomy tubes may be internalized after 2 wks or so Pleural effusion with atx: s/p L thoracentesis w/ cytology unfortunately was + for ca cells, will d/w her in f/u, i forgot to mention this today chest pain/dyspnea: V/Q scan low prob, on hep ppx w/ elev Cr, on O2 prn, pending pall RT w/ sim plans to be made today, apprec his assistance Lower extremity edema: Left greater than right, chronic, ultrasounds have been negative for clot recently, can use compression stockings as needed, was to get outpatient stress test after last admit Low potassium and magnesium: per primary Metastatic cervical cancer: Clinically progressive disease, no clinical trial available at , (potential vaccine trial, she would have to travel likely [id number], renal function likely would preclude) could consider next line gemcitabine days 1 and 8 and 15 q 28 versus palliative care. We will continue her methadone increasing to 20 mg 3 times a day (hold if prolonged QT and call MD) and fentanyl 75 g every 1 hour until inc methadone dose begins at 1400, the n move fentanyl to q2h prn, w/ Colace and MiraLAX when necessary. Fentanyl 50 did not adequately treat the pain at recent admit, morphine causes nausea and mental status changes. pending pall RT. Prophylaxis: heparin prophylaxis Recent rectal bleeding: was pending colonoscopy as outpatient after recent admit, scans suggest possible colitis though no signif sx now Disposition: After continued clinical improvement, appreciate multidisciplinary care Thank you kindly, and please don't hesitate to call with any further questions. OBJECTIVE Vital Signs Vital Signs Date Time Temp Pulse Resp B/P (MAP) Pulse Ox O2 Delivery O2 Flow Rate FiO2 01/05/19 09:33 Room Air 01/05/19 08:30 Room Air 01/05/19 08:00 Room Air 01/05/19 07:59 102 97/59 01/05/19 07:58 Nasal Cannula 2.0 01/05/19 07:55 Nasal Cannula 2.0 01/05/19 07:02 20 Room Air 01/05/19 07:00 98.0 102 18 97/59 (72) 94 Room Air 98.0 01/05/19 06:32 20 Nasal Cannula 2.0 01/05/19 06:29 20 Nasal Cannula 2.0 01/05/19 06:02 20 Nasal Cannula 2.0 01/05/19 05:32 20 Room Air 01/05/19 04:59 20 Nasal Cannula 2.0 01/05/19 04:29 20 Nasal Cannula 2.0 01/05/19 03:48 20 Nasal Cannula 2.0 01/05/19 03:18 20 Room Air 01/05/19 03:00 98.4 106 20 108/61 (77) 93 98.4 01/05/19 02:27 20 Room Air 01/05/19 01:57 20 Room Air 01/05/19 00:58 20 Room Air 01/05/19 00:28 20 01/04/19 23:43 20 Room Air 01/04/19 23:13 20 Room Air 01/04/19 23:00 98.6 108 16 110/64 (79) 90 98.6 01/04/19 22:32 20 Room Air 01/04/19 22:02 20 Room Air 01/04/19 21:56 20 Room Air 01/04/19 21:24 20 Room Air 01/04/19 20:56 20 Room Air 01/04/19 20:54 20 Room Air 01/04/19 20:16 20 Room Air 01/04/19 19:46 20 Room Air 01/04/19 19:40 Room Air 01/04/19 19:00 98.3 95 20 108/64 (79) 91 98.3 01/04/19 18:26 Room Air 01/04/19 17:56 Room Air 01/04/19 17:06 Room Air 01/04/19 16:36 Room Air 01/04/19 15:59 Room Air 01/04/19 15:29 Room Air 01/04/19 14:49 Room Air 01/04/19 14:19 Room Air 01/04/19 14:18 Room Air 01/04/19 14:00 89 18 102/69 (80) 91 Room Air 01/04/19 13:47 Room Air 01/04/19 13:18 Room Air 01/04/19 13:17 Room Air 01/04/19 13:00 83 18 109/64 (79) 91 Room Air 01/04/19 12:30 89 18 67/50 (56) 92 Room Air 01/04/19 12:10 Room Air 01/04/19 12:00 85 18 113/63 (80) 91 Room Air 01/04/19 11:45 90 18 116/72 (87) 92 Room Air 01/04/19 11:30 95 18 116/64 (81) 92 Room Air 01/04/19 11:15 95 18 110/60 (77) 92 Room Air 01/04/19 11:00 98.0 94 18 99/66 (77) 93 Room Air 98.0 01/04/19 10:24 100 13 98 Nasal Cannula 2.0 01/04/19 09:45 16 I & O Intake and Output 01/05/19 07:00 Intake Total 480 ml Output Total 4165 ml Balance -3685 ml Intake Oral 480 ml Drainage Total 2995 ml Other 1170 ml COMMENT Lab Laboratory Tests Test 01/05/19 06:10 Sodium Level 138 mmol/L (136-145) Potassium Level 3.4 mmol/L (3.5-5.1) Chloride Level 101 mmol/L (98-107) Carbon Dioxide Level 25 mmol/L (21-32) Anion Gap 12 (6-14) Blood Urea Nitrogen 32 mg/dL (7-20) Creatinine 3.4 mg/dL (0.6-1.0) Estimated GFR (Cockcroft-Gault) 15.1 Glucose Level 123 mg/dL (70-99) Calcium Level 9.3 mg/dL (8.5-10.1) Magnesium Level 1.4 mg/dL (1.8-2.4) POWER MEHTA MD Jan 05, 2019 09:45
[2019-01-05] MEDS ORDERED: fentaNYL PF VIAL 100 MCG/2 ML VIAL IV PRN (10:00)
--- NOTE | 2019-01-05 11:11 | PDOC ---
FOLLOW UP Ms. Bernal was transported to the radiation oncology department today and successfully completed CT simulation. Treatment planning is ongoing and I anticipate that she will likely start palliative radiotherapy tomorrow. Please contact our department with any questions. HARVEY Soriano MD, MD Jan 05, 2019 11:11
[2019-01-05] MEDS: PHENAZOPYRIDINE 200 MG TABLET. PO PRN (11:56)
[2019-01-05] MEDS ORDERED: MAGNESIUM SULFATE 2GM 50 ML IV ONE (12:00)
--- NOTE | 2019-01-05 12:30 | PDOC ---
PROGRESS NOTES Subjective Subjective Patient seen with Dr. Raines present. Patient C/O increased pain and also having pain with urination. Patient pain meds discussed with transition to home/PO pain control. Objective Objective Vital Signs Date Time Temp Pulse Resp B/P (MAP) Pulse Ox O2 Delivery O2 Flow Rate FiO2 01/05/19 11:57 Room Air 01/05/19 07:59 102 97/59 01/05/19 07:58 2.0 01/05/19 07:02 20 01/05/19 07:00 98.0 94 98.0 Intake and Output 01/05/19 07:00 Intake Total 480 ml Output Total 4165 ml Balance -3685 ml Intake Oral 480 ml Drainage Total 2995 ml Other 1170 ml Physical Exam Abdomen: Normal bowel sounds, Other (Bilateral nephrostomy tube in place urine clear) Heart: Regular rate Extremities: Other (2+ L>R) Lungs: Clear to auscultation Assessment Assessment Acute renal failure with CKD III - suspected to be due to the Keytruda.But also has hydronephrosis metastatic cervical cancer - slowly progressing. Keytruda on hold presently. Hgb down to 7.6 today. Pain appears well controlled with frequent Fentanyl, continue per Dr Raines. L pleural effusion - new for patient, s/p thoracentesis 12/31/18 HTN - BP's somewhat low UTI Plan Plan of Care Nephrostomy tube Placed Continue Pain control Palliative rad treatment planned Resume Chemo once renal status and HGB stable Treat UTI amoxicillin Increase Methadone per Heme/Onc Add pyridium and ditropan Comment Review of Relevant I have reviewed the following items heather (where applicable) has been applied. Labs Laboratory Tests Test 01/04/19 05:45 01/05/19 06:10 Sodium Level 139 mmol/L (136-145) 138 mmol/L (136-145) Potassium Level 3.4 mmol/L (3.5-5.1) 3.4 mmol/L (3.5-5.1) Chloride Level 103 mmol/L (98-107) 101 mmol/L (98-107) Carbon Dioxide Level 22 mmol/L (21-32) 25 mmol/L (21-32) Anion Gap 14 (6-14) 12 (6-14) Blood Urea Nitrogen 34 mg/dL (7-20) 32 mg/dL (7-20) Creatinine 3.7 mg/dL (0.6-1.0) 3.4 mg/dL (0.6-1.0) Estimated GFR (Cockcroft-Gault) 13.7 15.1 Glucose Level 100 mg/dL (70-99) 123 mg/dL (70-99) Calcium Level 9.4 mg/dL (8.5-10.1) 9.3 mg/dL (8.5-10.1) Magnesium Level 1.4 mg/dL (1.8-2.4) Laboratory Tests Test 01/05/19 06:10 Sodium Level 138 mmol/L (136-145) Potassium Level 3.4 mmol/L (3.5-5.1) Chloride Level 101 mmol/L (98-107) Carbon Dioxide Level 25 mmol/L (21-32) Anion Gap 12 (6-14) Blood Urea Nitrogen 32 mg/dL (7-20) Creatinine 3.4 mg/dL (0.6-1.0) Estimated GFR (Cockcroft-Gault) 15.1 Glucose Level 123 mg/dL (70-99) Calcium Level 9.3 mg/dL (8.5-10.1) Magnesium Level 1.4 mg/dL (1.8-2.4) Microbiology 12/29/18 Blood Culture - Final, Complete NO GROWTH AFTER 5 DAYS 12/29/18 Urine Culture - Final, Complete 12/29/18 Urine Culture Result 1 (FUNMI) - Final, Complete 12/29/18 Antimicrobic Susceptibility - Final, Complete Medications Current Medications Sodium Chloride 1,000 ml @ 1,000 mls/hr 1X ONCE IV Last administered on 12/29/18at 14:27; Start 12/29/18 at 14:15; Stop 12/29/18 at 15:14; Status DC Fentanyl Citrate (Fentanyl 2ml Vial) 50 mcg 1X ONCE IV Last administered on 12/29/18at 14:31; Start 12/29/18 at 14:15; Stop 12/29/18 at 14:16; Status DC Fentanyl Citrate (Fentanyl 2ml Vial) 75 mcg 1X ONCE IV Last administered on 12/29/18at 15:09; Start 12/29/18 at 15:15; Stop 12/29/18 at 15:16; Status DC Fentanyl Citrate (Fentanyl 2ml Vial) 75 mcg 1X ONCE IV Last administered on 12/29/18at 15:42; Start 12/29/18 at 15:45; Stop 12/29/18 at 15:46; Status DC Ceftriaxone Sodium (Rocephin) 1 gm 1X ONCE IVP Last administered on 12/29/18at 17:01; Start 12/29/18 at 16:30; Stop 12/29/18 at 16:31; Status DC Doxycycline Hyclate 100 mg/ Dextrose 100 ml @ 50 mls/hr 1X ONCE IV Last administered on 12/29/18at 17:02; Start 12/29/18 at 16:30; Stop 12/29/18 at 18:29; Status DC Fentanyl Citrate (Fentanyl 2ml Vial) 50 mcg PRN Q1HR PRN IV PAIN Last administered on 12/29/18at 16:53; Start 12/29/18 at 16:45; Stop 12/29/18 at 18:55; Status DC Sodium Chloride 1,000 ml @ 100 mls/hr Q10H IV Last administered on 12/30/18at 12:31; Start 12/29/18 at 16:31; Stop 12/30/18 at 16:30; Status DC Fentanyl Citrate (Fentanyl 2ml Vial) 75 mcg Q2HR PRN IV PAIN Last administered on 01/04/19at 12:10; Start 12/29/18 at 19:00; Stop 01/04/19 at 13:09; Status DC Methadone HCl (Dolophine) 7.5 mg Q8HRS PO ; Start 12/29/18 at 22:00; Status UNV Methadone HCl (Dolophine) 7.5 mg Q8HRS PO Last administered on 01/05/19at 06:29; Start 12/29/18 at 22:00; Stop 01/05/19 at 09:43; Status DC Docusate Sodium (Colace) 100 mg BID PRN PO HARD STOOLS; Start 12/29/18 at 19:15 Polyethylene Glycol (miraLAX PACKET) 17 gm PRN DAILY PRN PO CONSTIPATION; Start 12/29/18 at 19:15 Pharmacy Consult (C.diff Med Screen By Rx) 1 each 1X ONCE MC ; Start 12/30/18 at 09:00; Stop 12/30/18 at 09:01; Status Cancel Cyclobenzaprine HCl (Flexeril) 10 mg PRN TID PRN PO back pain; Start 12/30/18 at 09:00 Docusate Sodium (Colace) 100 mg DAILY PO Last administered on 01/05/19at 07:58; Start 12/30/18 at 09:00 Lisinopril (Prinivil) 10 mg DAILY PO ; Start 12/30/18 at 09:00; Stop 12/31/18 at 08:39; Status DC Polyethylene Glycol (miraLAX PACKET) 17 gm PRN DAILY PRN PO CONSTIPATION; Start 12/30/18 at 09:00; Stop 12/30/18 at 09:19; Status DC Zolpidem Tartrate (Ambien) 5 mg QHS PRN PO INSOMNIA Last administered on 01/01/19at 22:04; Start 12/30/18 at 09:00 Gabapentin (Neurontin) 600 mg BID PO Last administered on 01/05/19at 07:57; Start 12/30/18 at 09:00 Pantoprazole Sodium (Protonix) 40 mg DAILYAC PO Last administered on 01/05/19at 07:57; Start 12/30/18 at 09:00 Furosemide (Lasix) 40 mg [id number] PO Last administered on 01/05/19at 07:58; Start 01/01/19 at 11:00 Lisinopril (Prinivil) 2.5 mg DAILY PO ; Start 01/03/19 at 09:00 Heparin Sodium (Porcine) (Heparin Sodium) 5,000 unit Q8HRS SQ ; Start 01/03/19 at 14:00 Lidocaine HCl (Buffered Lidocaine 1%) 3 ml STK-MED ONCE .ROUTE ; Start 01/04/19 at 08:55; Stop 01/04/19 at 08:56; Status DC Iodixanol (Visipaque 320) 50 ml STK-MED ONCE .ROUTE ; Start 01/04/19 at 08:56; Stop 01/04/19 at 08:56; Status DC Midazolam HCl (Versed) 2 mg STK-MED ONCE .ROUTE ; Start 01/04/19 at 09:15; Stop 01/04/19 at 09:16; Status DC Fentanyl Citrate (Fentanyl 2ml Vial) 100 mcg STK-MED ONCE .ROUTE ; Start 01/04/19 at 09:15; Stop 01/04/19 at 09:16; Status DC Cefazolin Sodium 100 ml @ As Directed STK-MED ONCE IV ; Start 01/04/19 at 09:24; Stop 01/04/19 at 09:25; Status DC Midazolam HCl (Versed) 2 mg STK-MED ONCE .ROUTE ; Start 01/04/19 at 09:36; Stop 01/04/19 at 09:36; Status DC Fentanyl Citrate (Fentanyl 2ml Vial) 100 mcg STK-MED ONCE .ROUTE ; Start 01/04/19 at 09:36; Stop 01/04/19 at 09:37; Status DC Lidocaine HCl (Buffered Lidocaine 1%) 3 ml 1X ONCE IJ Last administered on 01/04/19 09:45; Start 01/04/19 at 09:45; Stop 01/04/19 at 09:48; Status DC Midazolam HCl (Versed) 2 mg 1X ONCE IV Last administered on 01/04/19at 09:45; Start 01/04/19 at 09:45; Stop 01/04/19 at 09:48; Status DC Fentanyl Citrate (Fentanyl 2ml Vial) 100 mcg 1X ONCE IV Last administered on 01/04/19at 09:45; Start 01/04/19 at 09:45; Stop 01/04/19 at 09:48; Status DC Cefazolin Sodium 50 ml @ 100 mls/hr 1X ONCE IV Last administered on 01/04/19 09:45; Start 01/04/19 at 09:45; Stop 01/04/19 at 10:14; Status DC Iodixanol (Visipaque 320) 50 ml 1X ONCE IART Last administered on 01/04/19 09:45; Start 01/04/19 at 09:45; Stop 01/04/19 at 09:48; Status DC Cefazolin Sodium 50 ml @ 100 mls/hr 1X ONCE IV Last administered on 01/04/19at 09:45; Start 01/04/19 at 09:45; Stop 01/04/19 at 10:14; Status DC Fentanyl Citrate (Fentanyl 2ml Vial) 100 mcg STK-MED ONCE .ROUTE ; Start 01/04/19 at 09:51; Stop 01/04/19 at 09:52; Status DC Fentanyl Citrate (Fentanyl 2ml Vial) 75 mcg Q1HR PRN IV PAIN Last administered on 01/05/19at 09:33; Start 01/04/19 at 13:15; Stop 01/05/19 at 09:45; Status DC Levofloxacin (Levaquin) 500 mg DAILY06 PO ; Start 01/05/19 at 06:00; Stop 01/12/19 at 14:00; Status UNV Amoxicillin (Amoxil) 500 mg [id number] PO Last administered on 01/04/19at 14:20; Start 01/04/19 at 14:00; Stop 01/04/19 at 15:50; Status DC Amoxicillin (Amoxil) 500 mg Q12HR PO Last administered on 01/05/19at 07:58; Start 01/04/19 at 21:00 Phenazopyridine HCl (Pyridium) 200 mg PRN TID PRN PO URINARY PAIN Last administered on 01/05/19at 11:56; Start 01/05/19 at 09:30 Oxybutynin Chloride (Ditropan) 5 mg [id number] PO ; Start 01/05/19 at 14:00 Fentanyl Citrate (Fentanyl 2ml Vial) 75 mcg PRN Q2HR PRN IV PAIN Last administered on 01/05/19at 10:35; Start 01/05/19 at 14:01 Methadone HCl (Dolophine) 20 mg TID PO ; Start 01/05/19 at 14:00 Fentanyl Citrate (Fentanyl 2ml Vial) 75 mcg PRN Q1HR PRN IV PAIN Last administered on 01/05/19at 11:57; Start 01/05/19 at 10:00; Stop 01/05/19 at 14:00 Magnesium Sulfate 50 ml @ 25 mls/hr 1X ONCE IV Last administered on 01/05/19at 11:56; Start 01/05/19 at 12:00; Stop 01/05/19 at 13:59 Active Scripts Active Klor-Con M20 (Potassium Chloride) 20 Meq Tab.er.prt 20 Meq PO DAILY 30 Days Polyethylene Glycol 3350 17 Gm Powd.pack 17 Gm PO PRN DAILY PRN 30 Days Colace (Docusate Sodium) 100 Mg Capsule 100 Mg PO DAILY MDD 30 30 Days Reported Keytruda (Pembrolizumab) 100 Mg/4 Ml Vial Unknown Dose IV WEEKLY Methadone Hcl 5 Mg Tablet 1.5 Tab PO Q8HRS Oxycodone Hcl 5 Mg Capsule 1-3 Tab PO PRN Q3HRS PRN Lisinopril 20 Mg Tablet 10 Mg PO DAILY Gabapentin 600 Mg Tablet 600 Mg PO BID Prevacid (Lansoprazole) 30 Mg Capsule.dr 30 Mg PO DAILY Cyclobenzaprine Hcl 10 Mg Tablet 10 Mg PO PRN TID PRN Phenergan (Promethazine HCl) 12.5 Mg Supp.rect 12.5 Mg RC PRN Q12HR PRN Ambien (Zolpidem Tartrate) 5 Mg Tablet 1 Tab PO QHS PRN Vitals/I & O Vital Sign - Last 24 Hours 01/04/19 01/04/19 01/04/19 01/04/19 12:30 13:00 13:17 13:18 Pulse 89 83 Resp 18 18 B/P (MAP) 67/50 (56) 109/64 (79) Pulse Ox 92 91 O2 Delivery Room Air Room Air Room Air Room Air 01/04/19 01/04/19 01/04/19 01/04/19 13:47 14:00 14:18 14:19 Pulse 89 Resp 18 B/P (MAP) 102/69 (80) Pulse Ox 91 O2 Delivery Room Air Room Air Room Air Room Air 01/04/19 01/04/19 01/04/19 01/04/19 14:49 15:29 15:59 16:36 O2 Delivery Room Air Room Air Room Air Room Air 01/04/19 01/04/19 01/04/19 01/04/19 17:06 17:56 18:26 19:00 Temp 98.3 98.3 Pulse 95 Resp 20 B/P (MAP) 108/64 (79) Pulse Ox 91 O2 Delivery Room Air Room Air Room Air 01/04/19 01/04/19 01/04/19 01/04/19 19:40 19:46 20:16 20:54 Resp 20 20 20 O2 Delivery Room Air Room Air Room Air Room Air 01/04/19 01/04/19 01/04/19 01/04/19 20:56 21:24 21:56 22:02 Resp 20 20 20 20 O2 Delivery Room Air Room Air Room Air Room Air 01/04/19 01/04/19 01/04/19 01/04/19 22:32 23:00 23:13 23:43 Temp 98.6 98.6 Pulse 108 Resp 20 16 20 20 B/P (MAP) 110/64 (79) Pulse Ox 90 O2 Delivery Room Air Room Air Room Air 01/05/19 01/05/19 01/05/19 01/05/19 00:28 00:58 01:57 02:27 Resp 20 20 20 20 O2 Delivery Room Air Room Air Room Air 01/05/19 01/05/19 01/05/19 01/05/19 03:00 03:18 03:48 04:29 Temp 98.4 98.4 Pulse 106 Resp 20 20 20 20 B/P (MAP) 108/61 (77) Pulse Ox 93 O2 Delivery Room Air Nasal Cannula Nasal Cannula O2 Flow Rate 2.0 2.0 01/05/19 01/05/19 01/05/19 01/05/19 04:59 05:32 06:02 06:29 Resp 20 20 20 20 O2 Delivery Nasal Cannula Room Air Nasal Cannula Nasal Cannula O2 Flow Rate 2.0 2.0 2.0 01/05/19 01/05/19 01/05/19 01/05/19 06:32 07:00 07:02 07:55 Temp 98.0 98.0 Pulse 102 Resp 20 18 20 B/P (MAP) 97/59 (72) Pulse Ox 94 O2 Delivery Nasal Cannula Room Air Room Air Nasal Cannula O2 Flow Rate 2.0 2.0 01/05/19 01/05/19 01/05/19 01/05/19 07:58 07:59 08:00 08:30 Pulse 102 B/P (MAP) 97/59 O2 Delivery Nasal Cannula Room Air Room Air O2 Flow Rate 2.0 01/05/19 01/05/19 01/05/19 09:33 10:35 11:57 O2 Delivery Room Air Room Air Room Air Intake and Output 01/04/19 01/04/19 01/05/19 15:00 23:00 07:00 Intake Total 240 ml 240 ml Output Total 750 ml 1170 ml 2245 ml Balance -750 ml -930 ml -2005 ml WINNIE VAZ MD Jan 05, 2019 12:30
--- NOTE | 2019-01-05 14:27 | PDOC ---
Renal-Progress Notes Subjective Notes Notes NONE, GETTING RAD History of Present Illness Hx of present illness NO CHANGE Vitals Vitals Vital Signs Date Time Temp Pulse Resp B/P (MAP) Pulse Ox O2 Delivery O2 Flow Rate FiO2 01/05/19 12:27 Room Air 01/05/19 07:59 102 97/59 01/05/19 07:58 2.0 01/05/19 07:02 20 01/05/19 07:00 98.0 94 98.0 Weight Weight [ ] I.O. Intake and Output Intake and Output 01/05/19 07:00 Intake Total 480 ml Output Total 4165 ml Balance -3685 ml Intake Oral 480 ml Drainage Total 2995 ml Other 1170 ml Labs Labs Laboratory Tests Test 01/05/19 06:10 Sodium Level 138 mmol/L (136-145) Potassium Level 3.4 mmol/L (3.5-5.1) Chloride Level 101 mmol/L (98-107) Carbon Dioxide Level 25 mmol/L (21-32) Anion Gap 12 (6-14) Blood Urea Nitrogen 32 mg/dL (7-20) Creatinine 3.4 mg/dL (0.6-1.0) Estimated GFR (Cockcroft-Gault) 15.1 Glucose Level 123 mg/dL (70-99) Calcium Level 9.3 mg/dL (8.5-10.1) Magnesium Level 1.4 mg/dL (1.8-2.4) Micro Micro Microbiology 12/29/18 Blood Culture - Final, Complete NO GROWTH AFTER 5 DAYS 12/29/18 Urine Culture - Final, Complete 12/29/18 Urine Culture Result 1 (FUNMI) - Final, Complete 12/29/18 Antimicrobic Susceptibility - Final, Complete Review of Systems Constitutional: yes: alert, oriented Ears/Nose/Throat: Yes: no symptom reported Eyes: Yes: no symptom reported Cardiovascular: Yes edema Gastrointestional: Yes: constipation Genitourinary: Yes: no symptom reported Musculoskeletal: Yes: muscle stiffness Skin: Yes no symptom reported Psychiatric/Neurological: Yes: no symptom reported Endocrine: Yes: no symptom reported Physical Exam General Appearance: no apparent distress Skin: warm Respiratory: decreased breath sounds Heart: S1S2 Abdomen: soft Extremities: edema Neurology: alert Musculoskeletal: Other Assessment Assessment IMP BRANDIN-IMPROVING WITH CR DOWN TO 3.4 CKD STAGE 3 WITH CR OF 1.5-2.0 BILATERAL HYDRONEPHROSIS-S/P BILATERAL PCN TUBES MET CERVICAL CANCER-ONC FOLLOWING ANEMIA-HEME FOLLOWING EDEMA LOW MAG AND K PLAN PCN TODAY WITH HOPES FOR ANTEGRADE STENT LATER CONT LOW DOSE LASIX REPLACE K AND MAG ONCOLOGY FOLLOWING HAVE D/W IR WILL FOLLOW EPIFANIO BARDALES MD Jan 05, 2019 14:27
[2019-01-05] MEDS: METHADONE 10 MG TABLET. PO SCH ×2 (14:34→21:19)
[2019-01-05] MEDS: OXYBUTYNIN CHLORIDE 5 MG TABLET PO SCH ×2 (14:34→21:19)
[2019-01-05 15:00] VITALS: BP 97/50
[2019-01-05] MEDS ORDERED: POTASSIUM CHLORIDE 20 MEQ TABLET.ER. PO ONE (15:00)
[2019-01-05 19:00] VITALS: BP 100/45
[2019-01-05 23:00] VITALS: BP 109/54
[2019-01-06 03:00] VITALS: BP 115/57
[2019-01-06] MEDS: fentaNYL PF VIAL 100 MCG/2 ML VIAL IV PRN ×6 (04:57→23:18)
[2019-01-06] MEDS: HEPARIN for SUB-Q USE 5,000 UNIT/ML VIAL. SQ SCH ×3 (06:00→21:01)
[2019-01-06 06:46] LABS: CALCIUM 9.3 mg/dL (8.5-10.1); GFR 17.5; MAGNESIUM 1.9 mg/dL (1.8-2.4); POTASSIUM 3.3 mmol/L (3.5-5.1)
[2019-01-06 06:49] LABS: BASO % 1 % (0-3); EOS # 0.2 x10^3/uL (0.0-0.7); EOS % 3 % (0-3); HEMATOCRIT 23.3 % (36.0-47.0); HEMOGLOBIN 7.6 g/dL (12.0-15.5); LYMPH # 0.7 x10^3/uL (1.0-4.8); LYMPH % 11 % (24-48); MEAN CORPUSCULAR HEMOGLOBIN 26 pg (25-35); MEAN CORPUSCULAR HGB CONC 33 g/dL (31-37); MEAN CORPUSCULAR VOLUME 79 fL (79-100); MONO # 0.6 x10^3/uL (0.0-1.1); MONO % 11 % (0-9); NEUT # 4.5 x10^3/uL (1.8-7.7); NEUT % 75 % (31-73); PLATELET COUNT 265 x10^3/uL (140-400); RED BLOOD COUNT 2.94 x10^6/uL (3.50-5.40); RED CELL DISTRIBUTION WIDTH 17.9 % (11.5-14.5)
[2019-01-06 07:00] VITALS: BP 100/53
[2019-01-06] MEDS: AMOXICILLIN 250 MG CAPSULE. PO SCH (08:24)
[2019-01-06] MEDS: OXYBUTYNIN CHLORIDE 5 MG TABLET PO SCH (08:24)
[2019-01-06] MEDS: PHENAZOPYRIDINE 200 MG TABLET. PO PRN ×2 (08:24→20:58)
[2019-01-06] MEDS: PANTOPRAZOLE 40 MG TABLET.DR. PO SCH (08:24)
[2019-01-06] MEDS: GABAPENTIN 300 MG CAPSULE. PO SCH ×2 (08:24→20:59)
[2019-01-06] MEDS: DOCUSATE SODIUM 100 MG CAPSULE. PO SCH (08:24)
[2019-01-06] MEDS: FUROSEMIDE 40 MG TABLET. PO SCH ×2 (08:24→13:48)
[2019-01-06] MEDS: METHADONE 10 MG TABLET. PO SCH ×3 (08:25→20:58)
[2019-01-06] MEDS: LISINOPRIL 5 MG TABLET. PO SCH (08:25)
[2019-01-06 11:00] VITALS: BP 108/52
--- NOTE | 2019-01-06 11:07 | PATHOLOGY ---
Note [facility] Accession Number: [id number] TESTS RESULT FLAG UNITS REF RANGE LAB Clinician Provided Cytology Information No. of containers..01 Other (Miscellaneous) Source: [A] 01 LEFT PLEURAL FLUID DIAGNOSIS: [A] 02 LEFT PLEURAL FLUID POSITIVE FOR MALIGNANT CELLS. METASTATIC SQUAMOUS CELL CARCINOMA IS PRESENT. THIS INTERPRETATION INCLUDES EVALUATION OF A CELL BLOCK. REVIEW/CONCUR: DR. BURDEN Signed out by: 02 Kana Philip MD, Pathologist NPI- [id number] Performed by: Katie Rai, [employer] ([facility]) Gross description: 01 30ML, DARK YELLOW, /LCS 03/29/1840 0000 Local FLAG LEGEND: L-Low Normal,H-High Normal,LL-Alert Low,HH-Alert High <-Panic Low,>-Panic High,A-Abnormal,AA-Critical Abnormal Performed at: [address] [place] [facility] [address] [place] [address] Dell Castaneda MD, 02 [facility] [address] [place] [address] Paresh Burden MD, Specimen Comment: A courtesy copy of this report has been sent to Specimen Comment: [phone], , . Specimen Comment: Report sent to Specimen Comment: A duplicate report has been generated due to demographic updates. Performed at: [address] [facility] [id number], [place], [place] [id number] MD Dell Castaneda MD Phone: [phone]
[2019-01-06] MEDS: PROCHLORPERAZINE 10 MG/2 ML VIAL. IV PRN (11:10)
--- NOTE | 2019-01-06 11:41 | PDOC ---
SUBJECTIVE ROS Not in the room, gone for Radiation Per family at bedside - c/o Nausea with Amox Good UOP OBJECTIVE Vital Signs Vital Signs Date Time Temp Pulse Resp B/P (MAP) Pulse Ox O2 Delivery O2 Flow Rate FiO2 01/06/19 08:55 Room Air 01/06/19 08:25 83 100/53 01/06/19 07:00 97.9 18 93 97.9 01/05/19 07:58 2.0 I & 0 Intake and Output 01/06/19 07:00 Intake Total 630 ml Output Total 4465 ml Balance -3835 ml Intake Oral 630 ml Drainage Total 4465 ml PHYSICAL EXAM Physical Exam Gen.: NAD, HEENT: mucous membranes moist, Neck-LA diffuse greatest at left(per hem/Onc ) Lungs: CTA, Non labored CV RRR Abdomen: Soft, nd, no rebound, Extremities: No cyanosis, chronic LE edema bilateral left greater than right(Not worse per pt) Skin: No obvious rashes Neuro: Alert and oriented 3 No Mcclendon , No SP or CVA tenderness, Has bilat Nephrostomy DIAGNOSIS/ASSESSMENT Assessment & Plan BRANDIN --2/2 Dehydration / Keytruda / Bilat Hydronephrosis Improved to 3.0 with worsening again Cr improving down to 3 .3,Now has Bilat nephrostomy placed 01/04 E-Lytes and acid base stable Supportive care, I/O, Monitor, daily lab CKD stage 3 -- Baseline 1.4-1.8 Follows with me as OP, last visit had stable renal function Hydronephrosis - Bilat Chronic Rt Moderate hydronephrosis due to LA , new Lt s/p Bilat nephrostomy on 01/04 Microscopic hematuria- Onc and Urology following Anemia- Per Oncology Pleural effusion - On RA currently Lower extremity edema: Left greater than right, chronic, improved since recently, ultrasounds have been negative for clot recently, Stable per Pt Metastatic cervical cancer: Clinically progressive disease, Recent rectal bleeding: was pending colonoscopy as outpatient scans suggest possible colitis COMMENT/RELEVANT DATA Meds Current Medications Medications (Trade) Dose Ordered Sig/Sanna Start Time Stop Time Status Last Admin Dose Admin Amoxicillin (Amoxil) 500 mg Q12HR 01/04/19 21:00 01/06/19 08:24 500 MG Cefazolin Sodium 50 ml @ 100 mls/hr 1X ONCE 01/04/19 09:45 01/04/19 10:14 DC 01/04/19 09:45 100 MLS/HR Ceftriaxone Sodium (Rocephin) 1 gm 1X ONCE 12/29/18 16:30 12/29/18 16:31 DC 12/29/18 17:01 1 GM Cyclobenzaprine HCl (Flexeril) 10 mg PRN TID PRN 12/30/18 09:00 Docusate Sodium (Colace) 100 mg DAILY 12/30/18 09:00 01/06/19 08:24 100 MG Doxycycline Hyclate 100 mg/ Dextrose 100 ml @ 50 mls/hr 1X ONCE 12/29/18 16:30 12/29/18 18:29 DC 12/29/18 17:02 50 MLS/HR Fentanyl Citrate (Fentanyl 2ml Vial) 75 mcg PRN Q1HR PRN 01/05/19 10:00 01/05/19 14:01 DC 01/05/19 11:57 75 MCG Furosemide (Lasix) 40 mg [id number] 01/01/19 11:00 01/06/19 08:24 40 MG Gabapentin (Neurontin) 600 mg BID 12/30/18 09:00 01/06/19 08:24 600 MG Heparin Sodium (Porcine) (Heparin Sodium) 5,000 unit Q8HRS 01/03/19 14:00 Iodixanol (Visipaque 320) 50 ml 1X ONCE 01/04/19 09:45 01/04/19 09:48 DC 01/04/19 09:45 40 ML Levofloxacin (Levaquin) 500 mg DAILY06 01/05/19 06:00 01/12/19 14:00 UNV Lidocaine HCl (Buffered Lidocaine 1%) 3 ml 1X ONCE 01/04/19 09:45 01/04/19 09:48 DC 01/04/19 09:45 13 ML Lisinopril (Prinivil) 2.5 mg DAILY 01/03/19 09:00 Magnesium Sulfate 50 ml @ 25 mls/hr 1X ONCE 01/05/19 12:00 01/05/19 13:59 DC 01/05/19 11:56 25 MLS/HR Methadone HCl (Dolophine) 20 mg TID 01/05/19 14:00 01/06/19 08:25 20 MG Midazolam HCl (Versed) 2 mg 1X ONCE 01/04/19 09:45 01/04/19 09:48 DC 01/04/19 09:45 3 MG Oxybutynin Chloride (Ditropan) 5 mg [id number] 01/05/19 14:00 01/06/19 08:24 5 MG Pantoprazole Sodium (Protonix) 40 mg DAILYAC 12/30/18 09:00 01/06/19 08:24 40 MG Pharmacy Consult (C.diff Med Screen By Rx) 1 each 1X ONCE 12/30/18 09:00 12/30/18 09:01 Cancel Phenazopyridine HCl (Pyridium) 200 mg PRN TID PRN 01/05/19 09:30 01/06/19 08:24 200 MG Polyethylene Glycol (miraLAX PACKET) 17 gm PRN DAILY PRN 12/30/18 09:00 12/30/18 09:19 DC Potassium Chloride (Klor-Con) 20 meq 1X ONCE 01/05/19 15:00 01/05/19 15:01 DC 01/05/19 14:47 20 MEQ Prochlorperazine Edisylate (Compazine) 10 mg PRN Q6HRS PRN 01/06/19 11:00 01/06/19 11:10 10 MG Sodium Chloride 1,000 ml @ 100 mls/hr Q10H 12/29/18 16:31 12/30/18 16:30 DC 12/30/18 12:31 100 MLS/HR Zolpidem Tartrate (Ambien) 5 mg QHS PRN 12/30/18 09:00 01/01/19 22:04 5 MG Lab Laboratory Tests Test 01/06/19 06:30 White Blood Count 6.0 x10^3/uL (4.0-11.0) Red Blood Count 2.94 x10^6/uL (3.50-5.40) Hemoglobin 7.6 g/dL (12.0-15.5) Hematocrit 23.3 % (36.0-47.0) Mean Corpuscular Volume 79 fL (79-100) Mean Corpuscular Hemoglobin 26 pg (25-35) Mean Corpuscular Hemoglobin Concent 33 g/dL (31-37) Red Cell Distribution Width 17.9 % (11.5-14.5) Platelet Count 265 x10^3/uL (140-400) Neutrophils (%) (Auto) 75 % (31-73) Lymphocytes (%) (Auto) 11 % (24-48) Monocytes (%) (Auto) 11 % (0-9) Eosinophils (%) (Auto) 3 % (0-3) Basophils (%) (Auto) 1 % (0-3) Neutrophils # (Auto) 4.5 x10^3/uL (1.8-7.7) Lymphocytes # (Auto) 0.7 x10^3/uL (1.0-4.8) Monocytes # (Auto) 0.6 x10^3/uL (0.0-1.1) Eosinophils # (Auto) 0.2 x10^3/uL (0.0-0.7) Basophils # (Auto) 0.0 x10^3/uL (0.0-0.2) Sodium Level 138 mmol/L (136-145) Potassium Level 3.3 mmol/L (3.5-5.1) Chloride Level 98 mmol/L (98-107) Carbon Dioxide Level 29 mmol/L (21-32) Anion Gap 11 (6-14) Blood Urea Nitrogen 30 mg/dL (7-20) Creatinine 3.0 mg/dL (0.6-1.0) Estimated GFR (Cockcroft-Gault) 17.5 Glucose Level 112 mg/dL (70-99) Calcium Level 9.3 mg/dL (8.5-10.1) Magnesium Level 1.9 mg/dL (1.8-2.4) Results All relevant outside records, renal labs, imaging studies, telemetry/EKG's were reviewed. ILIR CHICAS MD Jan 06, 2019 11:41
--- NOTE | 2019-01-06 12:56 | PDOC ---
PROGRESS NOTES Subjective Subjective Patient feeling poorly with fatigue and nausea. patient feels nauseated after taking amoxicillin. Bladder pain improved. Objective Objective Vital Signs Date Time Temp Pulse Resp B/P (MAP) Pulse Ox O2 Delivery O2 Flow Rate FiO2 01/06/19 11:00 97.9 92 18 108/52 (70) 92 Room Air 97.9 01/05/19 07:58 2.0 Intake and Output 01/06/19 07:00 Intake Total 630 ml Output Total 4465 ml Balance -3835 ml Intake Oral 630 ml Drainage Total 4465 ml Physical Exam Abdomen: Normal bowel sounds Heart: Regular rate Extremities: Other (2+ edemaL>R) General: Alert Lungs: Clear to auscultation Assessment Assessment Acute renal failure with CKD III - suspected to be due to the Keytruda.But also has hydronephrosis metastatic cervical cancer - slowly progressing. Keytruda on hold presently. Hgb down to 7.6 today. Pain appears well controlled with frequent Fentanyl, continue per Dr Raines. Astrid pleural effusion - new for patient, s/p thoracentesis 12/31/18 HTN - BP's somewhat low UTI Plan Plan of Care Nephrostomy tube Placed Continue Pain control Palliative rad treatment done today Resume Chemo once renal status and HGB stable Transfusion per heme/onc Treat UTI switch to cipro @to hausea Increase Methadone per Heme/Onc change to ditropan to PRN to help fatigue Comment Review of Relevant I have reviewed the following items heather (where applicable) has been applied. Labs Laboratory Tests Test 01/05/19 06:10 01/06/19 06:30 Sodium Level 138 mmol/L (136-145) 138 mmol/L (136-145) Potassium Level 3.4 mmol/L (3.5-5.1) 3.3 mmol/L (3.5-5.1) Chloride Level 101 mmol/L (98-107) 98 mmol/L (98-107) Carbon Dioxide Level 25 mmol/L (21-32) 29 mmol/L (21-32) Anion Gap 12 (6-14) 11 (6-14) Blood Urea Nitrogen 32 mg/dL (7-20) 30 mg/dL (7-20) Creatinine 3.4 mg/dL (0.6-1.0) 3.0 mg/dL (0.6-1.0) Estimated GFR (Cockcroft-Gault) 15.1 17.5 Glucose Level 123 mg/dL (70-99) 112 mg/dL (70-99) Calcium Level 9.3 mg/dL (8.5-10.1) 9.3 mg/dL (8.5-10.1) Magnesium Level 1.4 mg/dL (1.8-2.4) 1.9 mg/dL (1.8-2.4) White Blood Count 6.0 x10^3/uL (4.0-11.0) Red Blood Count 2.94 x10^6/uL (3.50-5.40) Hemoglobin 7.6 g/dL (12.0-15.5) Hematocrit 23.3 % (36.0-47.0) Mean Corpuscular Volume 79 fL (79-100) Mean Corpuscular Hemoglobin 26 pg (25-35) Mean Corpuscular Hemoglobin Concent 33 g/dL (31-37) Red Cell Distribution Width 17.9 % (11.5-14.5) Platelet Count 265 x10^3/uL (140-400) Neutrophils (%) (Auto) 75 % (31-73) Lymphocytes (%) (Auto) 11 % (24-48) Monocytes (%) (Auto) 11 % (0-9) Eosinophils (%) (Auto) 3 % (0-3) Basophils (%) (Auto) 1 % (0-3) Neutrophils # (Auto) 4.5 x10^3/uL (1.8-7.7) Lymphocytes # (Auto) 0.7 x10^3/uL (1.0-4.8) Monocytes # (Auto) 0.6 x10^3/uL (0.0-1.1) Eosinophils # (Auto) 0.2 x10^3/uL (0.0-0.7) Basophils # (Auto) 0.0 x10^3/uL (0.0-0.2) Laboratory Tests Test 01/06/19 06:30 White Blood Count 6.0 x10^3/uL (4.0-11.0) Red Blood Count 2.94 x10^6/uL (3.50-5.40) Hemoglobin 7.6 g/dL (12.0-15.5) Hematocrit 23.3 % (36.0-47.0) Mean Corpuscular Volume 79 fL (79-100) Mean Corpuscular Hemoglobin 26 pg (25-35) Mean Corpuscular Hemoglobin Concent 33 g/dL (31-37) Red Cell Distribution Width 17.9 % (11.5-14.5) Platelet Count 265 x10^3/uL (140-400) Neutrophils (%) (Auto) 75 % (31-73) Lymphocytes (%) (Auto) 11 % (24-48) Monocytes (%) (Auto) 11 % (0-9) Eosinophils (%) (Auto) 3 % (0-3) Basophils (%) (Auto) 1 % (0-3) Neutrophils # (Auto) 4.5 x10^3/uL (1.8-7.7) Lymphocytes # (Auto) 0.7 x10^3/uL (1.0-4.8) Monocytes # (Auto) 0.6 x10^3/uL (0.0-1.1) Eosinophils # (Auto) 0.2 x10^3/uL (0.0-0.7) Basophils # (Auto) 0.0 x10^3/uL (0.0-0.2) Sodium Level 138 mmol/L (136-145) Potassium Level 3.3 mmol/L (3.5-5.1) Chloride Level 98 mmol/L (98-107) Carbon Dioxide Level 29 mmol/L (21-32) Anion Gap 11 (6-14) Blood Urea Nitrogen 30 mg/dL (7-20) Creatinine 3.0 mg/dL (0.6-1.0) Estimated GFR (Cockcroft-Gault) 17.5 Glucose Level 112 mg/dL (70-99) Calcium Level 9.3 mg/dL (8.5-10.1) Magnesium Level 1.9 mg/dL (1.8-2.4) Microbiology 12/29/18 Blood Culture - Final, Complete NO GROWTH AFTER 5 DAYS 12/29/18 Urine Culture - Final, Complete 12/29/18 Urine Culture Result 1 (FUNMI) - Final, Complete 12/29/18 Antimicrobic Susceptibility - Final, Complete Medications Current Medications Sodium Chloride 1,000 ml @ 1,000 mls/hr 1X ONCE IV Last administered on 10/2/19at 14:27; Start 12/29/18 at 14:15; Stop 12/29/18 at 15:14; Status DC Fentanyl Citrate (Fentanyl 2ml Vial) 50 mcg 1X ONCE IV Last administered on 14:31; Start 12/29/18 at 14:15; Stop 12/29/18 at 14:16; Status DC Fentanyl Citrate (Fentanyl 2ml Vial) 75 mcg 1X ONCE IV Last administered on 12/29/18at 15:09; Start 12/29/18 at 15:15; Stop 12/29/18 at 15:16; Status DC Fentanyl Citrate (Fentanyl 2ml Vial) 75 mcg 1X ONCE IV Last administered on 12/29/18 15:42; Start 12/29/18 at 15:45; Stop 12/29/18 at 15:46; Status DC Ceftriaxone Sodium (Rocephin) 1 gm 1X ONCE IVP Last administered on 12/29/18 17:01; Start 12/29/18 at 16:30; Stop 12/29/18 at 16:31; Status DC Doxycycline Hyclate 100 mg/ Dextrose 100 ml @ 50 mls/hr 1X ONCE IV Last administered on 12/29/18 17:02; Start 12/29/18 at 16:30; Stop 12/29/18 at 18:29; Status DC Fentanyl Citrate (Fentanyl 2ml Vial) 50 mcg PRN Q1HR PRN IV PAIN Last administered on 12/29/18 16:53; Start 12/29/18 at 16:45; Stop 12/29/18 at 18:55; Status DC Sodium Chloride 1,000 ml @ 100 mls/hr Q10H IV Last administered on 12/30/18at 12:31; Start 12/29/18 at 16:31; Stop 12/30/18 at 16:30; Status DC Fentanyl Citrate (Fentanyl 2ml Vial) 75 mcg Q2HR PRN IV PAIN Last administered on 01/04/19 12:10; Start 12/29/18 at 19:00; Stop 01/04/19 at 13:09; Status DC Methadone HCl (Dolophine) 7.5 mg Q8HRS PO ; Start 12/29/18 at 22:00; Status UNV Methadone HCl (Dolophine) 7.5 mg Q8HRS PO Last administered on 10/9/19at 06:29; Start 12/29/18 at 22:00; Stop 01/05/19 at 09:43; Status DC Docusate Sodium (Colace) 100 mg BID PRN PO HARD STOOLS; Start 12/29/18 at 19:15 Polyethylene Glycol (miraLAX PACKET) 17 gm PRN DAILY PRN PO CONSTIPATION; Start 12/29/18 at 19:15 Pharmacy Consult (C.diff Med Screen By Rx) 1 each 1X ONCE MC ; Start 12/30/18 at 09:00; Stop 12/30/18 at 09:01; Status Cancel Cyclobenzaprine HCl (Flexeril) 10 mg PRN TID PRN PO back pain; Start 12/30/18 at 09:00 Docusate Sodium (Colace) 100 mg DAILY PO Last administered on 01/06/19at 08:24; Start 12/30/18 at 09:00 Lisinopril (Prinivil) 10 mg DAILY PO ; Start 12/30/18 at 09:00; Stop 12/31/18 at 08:39; Status DC Polyethylene Glycol (miraLAX PACKET) 17 gm PRN DAILY PRN PO CONSTIPATION; Start 12/30/18 at 09:00; Stop 12/30/18 at 09:19; Status DC Zolpidem Tartrate (Ambien) 5 mg QHS PRN PO INSOMNIA Last administered on 01/01/19at 22:04; Start 12/30/18 at 09:00 Gabapentin (Neurontin) 600 mg BID PO Last administered on 01/06/19at 08:24; Start 12/30/18 at 09:00 Pantoprazole Sodium (Protonix) 40 mg DAILYAC PO Last administered on 01/06/19at 08:24; Start 12/30/18 at 09:00 Furosemide (Lasix) 40 mg [id number] PO Last administered on 01/06/19at 08:24; Start 01/01/19 at 11:00 Lisinopril (Prinivil) 2.5 mg DAILY PO ; Start 01/03/19 at 09:00 Heparin Sodium (Porcine) (Heparin Sodium) 5,000 unit Q8HRS SQ ; Start 01/03/19 at 14:00 Lidocaine HCl (Buffered Lidocaine 1%) 3 ml STK-MED ONCE .ROUTE ; Start 01/04/19 at 08:55; Stop 01/04/19 at 08:56; Status DC Iodixanol (Visipaque 320) 50 ml STK-MED ONCE .ROUTE ; Start 01/04/19 at 08:56; Stop 01/04/19 at 08:56; Status DC Midazolam HCl (Versed) 2 mg STK-MED ONCE .ROUTE ; Start 01/04/19 at 09:15; Stop 01/04/19 at 09:16; Status DC Fentanyl Citrate (Fentanyl 2ml Vial) 100 mcg STK-MED ONCE .ROUTE ; Start 01/04/19 at 09:15; Stop 01/04/19 at 09:16; Status DC Cefazolin Sodium 100 ml @ As Directed STK-MED ONCE IV ; Start 01/04/19 at 09:24; Stop 01/04/19 at 09:25; Status DC Midazolam HCl (Versed) 2 mg STK-MED ONCE .ROUTE ; Start 01/04/19 at 09:36; Stop 01/04/19 at 09:36; Status DC Fentanyl Citrate (Fentanyl 2ml Vial) 100 mcg STK-MED ONCE .ROUTE ; Start 01/04/19 at 09:36; Stop 01/04/19 at 09:37; Status DC Lidocaine HCl (Buffered Lidocaine 1%) 3 ml 1X ONCE IJ Last administered on 01/04/19at 09:45; Start 01/04/19 at 09:45; Stop 01/04/19 at 09:48; Status DC Midazolam HCl (Versed) 2 mg 1X ONCE IV Last administered on 01/04/19at 09:45; Start 01/04/19 at 09:45; Stop 01/04/19 at 09:48; Status DC Fentanyl Citrate (Fentanyl 2ml Vial) 100 mcg 1X ONCE IV Last administered on 01/04/19at 09:45; Start 01/04/19 at 09:45; Stop 01/04/19 at 09:48; Status DC Cefazolin Sodium 50 ml @ 100 mls/hr 1X ONCE IV Last administered on 01/04/19at 09:45; Start 01/04/19 at 09:45; Stop 01/04/19 at 10:14; Status DC Iodixanol (Visipaque 320) 50 ml 1X ONCE IART Last administered on 01/04/19at 09:45; Start 01/04/19 at 09:45; Stop 01/04/19 at 09:48; Status DC Cefazolin Sodium 50 ml @ 100 mls/hr 1X ONCE IV Last administered on 01/04/19 09:45; Start 01/04/19 at 09:45; Stop 01/04/19 at 10:14; Status DC Fentanyl Citrate (Fentanyl 2ml Vial) 100 mcg STK-MED ONCE .ROUTE ; Start 01/04/19 at 09:51; Stop 01/04/19 at 09:52; Status DC Fentanyl Citrate (Fentanyl 2ml Vial) 75 mcg Q1HR PRN IV PAIN Last administered on 01/05/19 09:33; Start 01/04/19 at 13:15; Stop 01/05/19 at 09:45; Status DC Levofloxacin (Levaquin) 500 mg DAILY06 PO ; Start 01/05/19 at 06:00; Stop 01/12/19 at 14:00; Status UNV Amoxicillin (Amoxil) 500 mg [id number] PO Last administered on 01/04/19at 14:20; Start 01/04/19 at 14:00; Stop 01/04/19 at 15:50; Status DC Amoxicillin (Amoxil) 500 mg Q12HR PO Last administered on 01/06/19 08:24; Start 01/04/19 at 21:00 Phenazopyridine HCl (Pyridium) 200 mg PRN TID PRN PO URINARY PAIN Last administered on 01/06/19 08:24; Start 01/05/19 at 09:30 Oxybutynin Chloride (Ditropan) 5 mg [id number] PO Last administered on 01/06/19 08:24; Start 01/05/19 at 14:00 Fentanyl Citrate (Fentanyl 2ml Vial) 75 mcg PRN Q2HR PRN IV PAIN Last administe red on 01/06/19 08:26; Start 01/05/19 at 14:01 Methadone HCl (Dolophine) 20 mg TID PO Last administered on 01/06/19 08:25; Start 01/05/19 at 14:00 Fentanyl Citrate (Fentanyl 2ml Vial) 75 mcg PRN Q1HR PRN IV PAIN Last administered on 01/05/19 11:57; Start 01/05/19 at 10:00; Stop 01/05/19 at 14:01; Status DC Magnesium Sulfate 50 ml @ 25 mls/hr 1X ONCE IV Last administered on 01/05/19at 11:56; Start 01/05/19 at 12:00; Stop 01/05/19 at 13:59; Status DC Potassium Chloride (Klor-Con) 20 meq 1X ONCE PO Last administered on 01/05/19at 14:47; Start 01/05/19 at 15:00; Stop 01/05/19 at 15:01; Status DC Prochlorperazine Edisylate (Compazine) 10 mg PRN Q6HRS PRN IV NAUSEA/VOMITING Last administered on 01/06/19at 11:10; Start 01/06/19 at 11:00 Active Scripts Active Klor-Con M20 (Potassium Chloride) 20 Meq Tab.er.prt 20 Meq PO DAILY 30 Days Polyethylene Glycol 3350 17 Gm Powd.pack 17 Gm PO PRN DAILY PRN 30 Days Colace (Docusate Sodium) 100 Mg Capsule 100 Mg PO DAILY MDD 30 30 Days Reported Keytruda (Pembrolizumab) 100 Mg/4 Ml Vial Unknown Dose IV WEEKLY Methadone Hcl 5 Mg Tablet 1.5 Tab PO Q8HRS Oxycodone Hcl 5 Mg Capsule 1-3 Tab PO PRN Q3HRS PRN Lisinopril 20 Mg Tablet 10 Mg PO DAILY Gabapentin 600 Mg Tablet 600 Mg PO BID Prevacid (Lansoprazole) 30 Mg Capsule.dr 30 Mg PO DAILY Cyclobenzaprine Hcl 10 Mg Tablet 10 Mg PO PRN TID PRN Phenergan (Promethazine HCl) 12.5 Mg Supp.rect 12.5 Mg RC PRN Q12HR PRN Ambien (Zolpidem Tartrate) 5 Mg Tablet 1 Tab PO QHS PRN Vitals/I & O Vital Sign - Last 24 Hours 01/05/19 01/05/19 01/05/19 01/05/19 14:35 15:00 15:05 19:00 Temp 98.4 98.1 98.4 98.1 Pulse 87 83 Resp 18 18 B/P (MAP) 97/50 (66) 100/45 (63) Pulse Ox 95 94 O2 Delivery Room Air Room Air Room Air Room Air 01/05/19 01/05/19 01/05/19 01/05/19 20:15 21:25 21:55 23:00 Temp 98.0 98.0 Pulse 102 Resp 20 20 18 B/P (MAP) 109/54 (72) Pulse Ox 92 O2 Delivery Room Air Room Air Room Air Room Air 01/06/19 01/06/19 01/06/19 01/06/19 03:00 04:57 05:27 07:00 Temp 97.9 97.9 97.9 97.9 Pulse 100 83 Resp 18 20 20 18 B/P (MAP) 115/57 (76) 100/53 (69) Pulse Ox 94 93 O2 Delivery Room Air Room Air Room Air Room Air 01/06/19 01/06/19 01/06/19 01/06/19 08:00 08:25 08:26 08:55 Pulse 83 B/P (MAP) 100/53 O2 Delivery Room Air Room Air Room Air 01/06/19 11:00 Temp 97.9 97.9 Pulse 92 Resp 18 B/P (MAP) 108/52 (70) Pulse Ox 92 O2 Delivery Room Air Intake and Output 01/05/19 01/05/19 01/06/19 15:00 23:00 07:00 Intake Total 150 ml 480 ml Output Total 2275 ml 750 ml 1440 ml Balance -2275 ml -600 ml -960 ml WINNIE VAZ MD Jan 06, 2019 12:56
--- NOTE | 2019-01-06 14:48 | PDOC ---
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 Now recovering from bilateral nephrostomy tube placements earlier on 01/04/2019. Doing well post placement with Cr now decreasing from 3.4 to 3.3. Urine output orange colored due to Azo. No heme Began 12 day course of palliative radiation to left cervical bilateral supraclav and superior mediastinum today. Impression: Metastatic cervical carcinoma doing well with initiation of treatment. Will resume tomorrow. OK to DC at any time from my perspective when ok with hospitalists. COLETTE MOODY MD Jan 06, 2019 14:48
[2019-01-06 15:00] VITALS: BP 107/67
[2019-01-06 19:35] VITALS: BP 112/58
[2019-01-06] MEDS: OXYBUTYNIN CHLORIDE 5 MG TABLET PO PRN (20:58)
[2019-01-06] MEDS: CIPROFLOXACIN HCL 250 MG TABLET. PO SCH (20:58)
[2019-01-06] MEDS: ZOLPIDEM 5 MG TABLET. PO PRN (20:59)
[2019-01-06 23:46] VITALS: BP 92/37
[2019-01-07 03:44] VITALS: BP 110/46
[2019-01-07] MEDS: fentaNYL PF VIAL 100 MCG/2 ML VIAL IV PRN ×5 (05:10→23:29)
[2019-01-07] MEDS: HEPARIN for SUB-Q USE 5,000 UNIT/ML VIAL. SQ SCH ×3 (06:00→22:00)
[2019-01-07] MEDS: PANTOPRAZOLE 40 MG TABLET.DR. PO SCH (06:48)
[2019-01-07 07:00] VITALS: BP 111/59
[2019-01-07] MEDS: DOCUSATE SODIUM 100 MG CAPSULE. PO SCH (08:21)
[2019-01-07] MEDS: FUROSEMIDE 40 MG TABLET. PO SCH ×2 (08:22→12:54)
[2019-01-07] MEDS: CIPROFLOXACIN HCL 250 MG TABLET. PO SCH ×2 (08:22→20:31)
[2019-01-07] MEDS: GABAPENTIN 300 MG CAPSULE. PO SCH ×2 (08:22→20:31)
[2019-01-07] MEDS: LISINOPRIL 5 MG TABLET. PO SCH (08:23)
[2019-01-07] MEDS: METHADONE 10 MG TABLET. PO SCH ×3 (08:23→20:32)
--- NOTE | 2019-01-07 09:24 | PDOC ---
SUBJECTIVE Subjective S: started RT, too soon to tell benefit though backing off of fentanyl and methadone 20 too much O: Gen: in bed, resting, in good spirits today, family at bedside Psych: pleasant mood and affect Labs: UA cx w/ bacteria low Mag and K Rads: layering L eff w/ atx V/Q scan low prob Assessment and Plan: Marivel is a 38-year-old female with metastatic cervical cancer, recently on pembrolizumab palliatively prior to admit, with clinically progressive disease and renal failure, and slight hypoxia on O2 intermittently, s/p thoracentesis 12/31 w/ 900 cc fluid w/drawn and recent percutaneous nephrostomy tubes placed 01/04 UTI: UA cx w/ e faecalis, on amox Renal failure: Appreciate urology input, getting hydration, and nephrostomy tubes may be internalized after 2 wks or so Pleural effusion with atx: + cytology, retap prn chest pain/dyspnea: V/Q scan low prob, on hep ppx w/ elev Cr, on O2 prn, getting pall RT x 12 doses starting Dec, apprec Rad/onc assistance Lower extremity edema: Left greater than right, chronic, ultrasounds have been negative for clot recently, can use compression stockings as needed, was to get outpatient stress test after last admit Low potassium and magnesium: per primary Metastatic cervical cancer: Clinically progressive disease, no clinical trial available at , (potential vaccine trial, she would have to travel likely [id number], renal function likely would preclude) could consider next line gemcitabine days 1 and 8 and 15 q 28 versus palliative care. We will continue her methadone only 10 mg 3 times a day w/ prn's and bowel meds prn, she has plenty of pain pills to get her thru the weekend Prophylaxis: heparin prophylaxis Recent rectal bleeding: was pending colonoscopy as outpatient Disposition: today hopefully, appreciate multidisciplinary care Thank you kindly, and please don't hesitate to call with any further questions. OBJECTIVE Vital Signs Vital Signs Date Time Temp Pulse Resp B/P (MAP) Pulse Ox O2 Delivery O2 Flow Rate FiO2 01/07/19 08:23 95 111/59 01/07/19 07:30 Room Air 01/07/19 07:00 97.8 96 16 111/59 (76) 90 Room Air 97.8 01/07/19 05:40 18 94 Room Air 01/07/19 05:10 18 94 Room Air 01/07/19 03:44 98.2 75 18 110/46 (67) 94 Room Air 98.2 01/06/19 23:46 99.0 18 18 92/37 (55) 93 Room Air 99.0 01/06/19 20:00 Room Air 01/06/19 19:49 20 93 Room Air 01/06/19 19:35 98.0 98 18 112/58 (76) 93 Room Air 98.0 01/06/19 19:19 20 92 Room Air 01/06/19 17:05 92 Room Air 01/06/19 16:42 92 Room Air 01/06/19 15:00 98.1 82 18 107/67 (80) 93 Room Air 98.1 01/06/19 14:20 Room Air 01/06/19 13:51 Room Air 01/06/19 11:00 97.9 92 18 108/52 (70) 92 Room Air 97.9 I & O Intake and Output 01/07/19 06:59 Intake Total 1700 ml Output Total 3050 ml Balance -1350 ml Intake Oral 1700 ml Output Urine Total 1450 ml Drainage Total 1600 ml # Voids 1 POWER MEHTA MD Jan 07, 2019 09:24
--- NOTE | 2019-01-07 09:39 | PDOC ---
SUBJECTIVE ROS Stable, family at bedside OBJECTIVE Vital Signs Vital Signs Date Time Temp Pulse Resp B/P (MAP) Pulse Ox O2 Delivery O2 Flow Rate FiO2 01/07/19 08:23 95 111/59 01/07/19 07:30 Room Air 01/07/19 07:00 97.8 16 90 97.8 I & 0 Intake and Output 01/07/19 07:00 Intake Total 1700 ml Output Total 3050 ml Balance -1350 ml Intake Oral 1700 ml Output Urine Total 1450 ml Drainage Total 1600 ml # Voids 1 PHYSICAL EXAM Physical Exam Gen.: NAD, HEENT: mucous membranes moist, Neck-LA diffuse greatest at left(per hem/Onc ) Lungs: CTA, Non labored CV RRR Abdomen: Soft, nd, no rebound, Extremities: No cyanosis, chronic LE edema bilateral left greater than right(Not worse per pt) Skin: No obvious rashes Neuro: Alert and oriented 3 No Mcclendon , No SP or CVA tenderness, Has bilat Nephrostomy DIAGNOSIS/ASSESSMENT Assessment & Plan BRANDIN --2/2 Dehydration / Keytruda / Bilat Hydronephrosis Renal function improving has Bilat nephrostomy placed 01/04 E-Lytes and acid base stable Titrate down lasix based on Wt, edema, renal function- currently on Lasix 40 mg PO BID with decrease in wt , excellent UOP Supportive care, I/O, Monitor, daily lab CKD stage 3 -- Baseline 1.4-1.8 Follows with me as OP, last visit had stable renal function Hydronephrosis - Bilat Chronic Rt Moderate hydronephrosis due to LA , new Lt s/p Bilat nephrostomy on 01/04 Microscopic hematuria- Onc and Urology following Anemia- Per Oncology Pleural effusion - On RA currently Metastatic cervical cancer: Clinically progressive disease, Recent rectal bleeding: was pending colonoscopy as outpatient scans suggest possible colitis UTI: UA cx w/ e faecalis, on amox Pleural effusion with atx: + cytology, retap prn COMMENT/RELEVANT DATA Meds Current Medications Medications (Trade) Dose Ordered Sig/Sanna Start Time Stop Time Status Last Admin Dose Admin Amoxicillin (Amoxil) 500 mg Q12HR 01/04/19 21:00 01/06/19 12:50 DC 01/06/19 08:24 500 MG Cefazolin Sodium 50 ml @ 100 mls/hr 1X ONCE 01/04/19 09:45 01/04/19 10:14 DC 01/04/19 09:45 100 MLS/HR Ceftriaxone Sodium (Rocephin) 1 gm 1X ONCE 12/29/18 16:30 12/29/18 16:31 DC 12/29/18 17:01 1 GM Ciprofloxacin (Cipro) 250 mg BID 01/06/19 21:00 01/11/19 21:00 01/07/19 08:22 250 MG Cyclobenzaprine HCl (Flexeril) 10 mg PRN TID PRN 12/30/18 09:00 Docusate Sodium (Colace) 100 mg DAILY 12/30/18 09:00 01/07/19 08:21 100 MG Doxycycline Hyclate 100 mg/ Dextrose 100 ml @ 50 mls/hr 1X ONCE 12/29/18 16:30 12/29/18 18:29 DC 12/29/18 17:02 50 MLS/HR Fentanyl Citrate (Fentanyl 2ml Vial) 75 mcg PRN Q1HR PRN 01/05/19 10:00 01/05/19 14:01 DC 01/05/19 11:57 75 MCG Furosemide (Lasix) 40 mg [id number] 01/01/19 11:00 01/07/19 08:22 40 MG Gabapentin (Neurontin) 600 mg BID 12/30/18 09:00 01/07/19 08:22 600 MG Heparin Sodium (Porcine) (Heparin Sodium) 5,000 unit Q8HRS 01/03/19 14:00 Iodixanol (Visipaque 320) 50 ml 1X ONCE 01/04/19 09:45 01/04/19 09:48 DC 01/04/19 09:45 40 ML Levofloxacin (Levaquin) 500 mg DAILY06 01/05/19 06:00 01/12/19 14:00 UNV Lidocaine HCl (Buffered Lidocaine 1%) 3 ml 1X ONCE 01/04/19 09:45 01/04/19 09:48 DC 01/04/19 09:45 13 ML Lisinopril (Prinivil) 2.5 mg DAILY 01/03/19 09:00 01/07/19 08:23 2.5 MG Magnesium Sulfate 50 ml @ 25 mls/hr 1X ONCE 01/05/19 12:00 01/05/19 13:59 DC 01/05/19 11:56 25 MLS/HR Methadone HCl (Dolophine) 20 mg TID 01/05/19 14:00 01/07/19 08:23 10 MG Midazolam HCl (Versed) 2 mg 1X ONCE 01/04/19 09:45 01/04/19 09:48 DC 01/04/19 09:45 3 MG Oxybutynin Chloride (Ditropan) 5 mg PRN TID PRN 01/06/19 12:45 01/06/19 20:58 5 MG Oxycodone HCl (Roxicodone) 10 mg PRN Q3HRS PRN 01/06/19 14:45 Pantoprazole Sodium (Protonix) 40 mg DAILYAC 12/30/18 09:00 01/07/19 06:48 40 MG Pharmacy Consult (C.diff Med Screen By Rx) 1 each 1X ONCE 12/30/18 09:00 12/30/18 09:01 Cancel Phenazopyridine HCl (Pyridium) 200 mg PRN TID PRN 01/05/19 09:30 01/06/19 20:58 200 MG Polyethylene Glycol (miraLAX PACKET) 17 gm PRN DAILY PRN 12/30/18 09:00 12/30/18 09:19 DC Potassium Chloride (Klor-Con) 20 meq 1X ONCE 01/05/19 15:00 01/05/19 15:01 DC 01/05/19 14:47 20 MEQ Prochlorperazine Edisylate (Compazine) 10 mg PRN Q6HRS PRN 01/06/19 11:00 01/06/19 11:10 10 MG Sodium Chloride 1,000 ml @ 100 mls/hr Q10H 12/29/18 16:31 12/30/18 16:30 DC 12/30/18 12:31 100 MLS/HR Zolpidem Tartrate (Ambien) 5 mg QHS PRN 12/30/18 09:00 01/06/19 20:59 5 MG Results All relevant outside records, renal labs, imaging studies, telemetry/EKG's were reviewed. ILIR CHICAS MD Jan 07, 2019 09:39
--- NOTE | 2019-01-07 09:55 | NUR ---
SS following up with discharge planning. Pt is currently on room air. No discharge needs noted at this time. SS will continue to follow for discharge planning.
[2019-01-07 10:31] LABS: CALCIUM 9.5 mg/dL (8.5-10.1); CREATININE 2.7 mg/dL (0.6-1.0); GFR 19.7
[2019-01-07 10:44] LABS: POTASSIUM 2.8 mmol/L (3.5-5.1)
[2019-01-07 11:00] VITALS: BP 104/50
[2019-01-07] MEDS ORDERED: POTASSIUM CHLORIDE 20 MEQ TABLET.ER. PO ONE (11:00)
[2019-01-07] MEDS ORDERED: MAGNESIUM SULFATE 1GM 100 ML IV ONE (13:00)
[2019-01-07] MEDS ORDERED: MAGNESIUM CHLORIDE ER 64 MG TABLET.ER PO SCH (13:00)
--- NOTE | 2019-01-07 13:05 | PDOC ---
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 Day 2 of 12 day course of palliative radiation to inf cervical, supraclav and mediastinal LNs. Well tolerated thus far. Less urinary incontinence with neph drainage in place. Now recovering from bilateral nephrostomy tube placements earlier on 01/04/2019. Doing well post placement with Cr now decreasing from 3.0 to 2.7 K = 2.8, Mg 1.3, Hb 7.6 WBC 6000 Plat 265k Nephrostomy Urine output orange colored due to Azo. No heme Impression: Good tolerance of radiation, will resume 01/10/2019. COLETTE MOODY MD Jan 07, 2019 13:05
--- NOTE | 2019-01-07 13:27 | PDOC ---
PROGRESS NOTES Subjective Subjective Patient feeling better. Low Mag level and low K+. Less pain meds needed at this time renal function improving. Objective Objective Vital Signs Date Time Temp Pulse Resp B/P (MAP) Pulse Ox O2 Delivery O2 Flow Rate FiO2 01/07/19 11:32 90 Room Air 01/07/19 11:00 102 16 104/50 (68) 01/07/19 07:00 97.8 97.8 01/05/19 07:58 2.0 Intake and Output 01/07/19 07:00 Intake Total 1700 ml Output Total 3050 ml Balance -1350 ml Intake Oral 1700 ml Output Urine Total 1450 ml Drainage Total 1600 ml # Voids 1 Physical Exam Abdomen: Normal bowel sounds Heart: Regular rate Extremities: No edema (1+L>R) General: Alert Lungs: Clear to auscultation Assessment Assessment Nephrostomy tube in place Continue Pain control Palliative rad treatment done today Resume Chemo once renal status and HGB stable Transfusion per heme/onc Treat UTI switch to cipro due to nausea Pain control per Heme/Onc Add Mag and K+supplement Plan Plan of Care Continue care with possible D/C Thursday Follow labs Adjust pain meds Increase activity Comment Review of Relevant I have reviewed the following items heather (where applicable) has been applied. Labs Laboratory Tests Test 01/06/19 06:30 01/07/19 09:50 White Blood Count 6.0 x10^3/uL (4.0-11.0) Red Blood Count 2.94 x10^6/uL (3.50-5.40) Hemoglobin 7.6 g/dL (12.0-15.5) Hematocrit 23.3 % (36.0-47.0) Mean Corpuscular Volume 79 fL (79-100) Mean Corpuscular Hemoglobin 26 pg (25-35) Mean Corpuscular Hemoglobin Concent 33 g/dL (31-37) Red Cell Distribution Width 17.9 % (11.5-14.5) Platelet Count 265 x10^3/uL (140-400) Neutrophils (%) (Auto) 75 % (31-73) Lymphocytes (%) (Auto) 11 % (24-48) Monocytes (%) (Auto) 11 % (0-9) Eosinophils (%) (Auto) 3 % (0-3) Basophils (%) (Auto) 1 % (0-3) Neutrophils # (Auto) 4.5 x10^3/uL (1.8-7.7) Lymphocytes # (Auto) 0.7 x10^3/uL (1.0-4.8) Monocytes # (Auto) 0.6 x10^3/uL (0.0-1.1) Eosinophils # (Auto) 0.2 x10^3/uL (0.0-0.7) Basophils # (Auto) 0.0 x10^3/uL (0.0-0.2) Sodium Level 138 mmol/L (136-145) 137 mmol/L (136-145) Potassium Level 3.3 mmol/L (3.5-5.1) 2.8 mmol/L (3.5-5.1) Chloride Level 98 mmol/L (98-107) 95 mmol/L (98-107) Carbon Dioxide Level 29 mmol/L (21-32) 30 mmol/L (21-32) Anion Gap 11 (6-14) 12 (6-14) Blood Urea Nitrogen 30 mg/dL (7-20) 30 mg/dL (7-20) Creatinine 3.0 mg/dL (0.6-1.0) 2.7 mg/dL (0.6-1.0) Estimated GFR (Cockcroft-Gault) 17.5 19.7 Glucose Level 112 mg/dL (70-99) 111 mg/dL (70-99) Calcium Level 9.3 mg/dL (8.5-10.1) 9.5 mg/dL (8.5-10.1) Magnesium Level 1.9 mg/dL (1.8-2.4) 1.3 mg/dL (1.8-2.4) Laboratory Tests Test 01/07/19 09:50 Sodium Level 137 mmol/L (136-145) Potassium Level 2.8 mmol/L (3.5-5.1) Chloride Level 95 mmol/L (98-107) Carbon Dioxide Level 30 mmol/L (21-32) Anion Gap 12 (6-14) Blood Urea Nitrogen 30 mg/dL (7-20) Creatinine 2.7 mg/dL (0.6-1.0) Estimated GFR (Cockcroft-Gault) 19.7 Glucose Level 111 mg/dL (70-99) Calcium Level 9.5 mg/dL (8.5-10.1) Magnesium Level 1.3 mg/dL (1.8-2.4) Microbiology 12/29/18 Blood Culture - Final, Complete NO GROWTH AFTER 5 DAYS 12/29/18 Urine Culture - Final, Complete 12/29/18 Urine Culture Result 1 (FUNMI) - Final, Complete 12/29/18 Antimicrobic Susceptibility - Final, Complete Medications Current Medications Sodium Chloride 1,000 ml @ 1,000 mls/hr 1X ONCE IV Last administered on 12/29/18 14:27; Start 12/29/18 at 14:15; Stop 12/29/18 at 15:14; Status DC Fentanyl Citrate (Fentanyl 2ml Vial) 50 mcg 1X ONCE IV Last administered on 14:31; Start 12/29/18 at 14:15; Stop 12/29/18 at 14:16; Status DC Fentanyl Citrate (Fentanyl 2ml Vial) 75 mcg 1X ONCE IV Last administered on 12/29/18 15:09; Start 12/29/18 at 15:15; Stop 12/29/18 at 15:16; Status DC Fentanyl Citrate (Fentanyl 2ml Vial) 75 mcg 1X ONCE IV Last administered on 12/29/18 15:42; Start 12/29/18 at 15:45; Stop 12/29/18 at 15:46; Status DC Ceftriaxone Sodium (Rocephin) 1 gm 1X ONCE IVP Last administered on 12/29/18 17:01; Start 12/29/18 at 16:30; Stop 12/29/18 at 16:31; Status DC Doxycycline Hyclate 100 mg/ Dextrose 100 ml @ 50 mls/hr 1X ONCE IV Last administered on 12/29/18 17:02; Start 12/29/18 at 16:30; Stop 12/29/18 at 18:29; Status DC Fentanyl Citrate (Fentanyl 2ml Vial) 50 mcg PRN Q1HR PRN IV PAIN Last administered on 12/29/18 16:53; Start 12/29/18 at 16:45; Stop 12/29/18 at 18:55; Status DC Sodium Chloride 1,000 ml @ 100 mls/hr Q10H IV Last administered on 12/30/18at 12:31; Start 12/29/18 at 16:31; Stop 12/30/18 at 16:30; Status DC Fentanyl Citrate (Fentanyl 2ml Vial) 75 mcg Q2HR PRN IV PAIN Last administered on 01/04/19at 12:10; Start 12/29/18 at 19:00; Stop 01/04/19 at 13:09; Status DC Methadone HCl (Dolophine) 7.5 mg Q8HRS PO ; Start 12/29/18 at 22:00; Status UNV Methadone HCl (Dolophine) 7.5 mg Q8HRS PO Last administered on 01/05/19at 06:29; Start 12/29/18 at 22:00; Stop 01/05/19 at 09:43; Status DC Docusate Sodium (Colace) 100 mg BID PRN PO HARD STOOLS; Start 12/29/18 at 19:15 Polyethylene Glycol (miraLAX PACKET) 17 gm PRN DAILY PRN PO CONSTIPATION; Start 12/29/18 at 19:15 Pharmacy Consult (C.diff Med Screen By Rx) 1 each 1X ONCE [facility] ; Start 12/30/18 at 09:00; Stop 12/30/18 at 09:01; Status Cancel Cyclobenzaprine HCl (Flexeril) 10 mg PRN TID PRN PO back pain; Start 12/30/18 at 09:00 Docusate Sodium (Colace) 100 mg DAILY PO Last administered on 01/07/19at 08:21; Start 12/30/18 at 09:00 Lisinopril (Prinivil) 10 mg DAILY PO ; Start 12/30/18 at 09:00; Stop 12/31/18 at 08:39; Status DC Polyethylene Glycol (miraLAX PACKET) 17 gm PRN DAILY PRN PO CONSTIPATION; Start 12/30/18 at 09:00; Stop 12/30/18 at 09:19; Status DC Zolpidem Tartrate (Ambien) 5 mg QHS PRN PO INSOMNIA Last administered on 01/06/19at 20:59; Start 12/30/18 at 09:00 Gabapentin (Neurontin) 600 mg BID PO Last administered on 01/07/19 08:22; Start 12/30/18 at 09:00 Pantoprazole Sodium (Protonix) 40 mg DAILYAC PO Last administered on 01/07/19at 06:48; Start 12/30/18 at 09:00 Furosemide (Lasix) 40 mg [id number] PO Last administered on 01/07/19at 12:54; Start 01/01/19 at 11:00 Lisinopril (Prinivil) 2.5 mg DAILY PO Last administered on 01/07/19at 08:23; Start 01/03/19 at 09:00 Heparin Sodium (Porcine) (Heparin Sodium) 5,000 unit Q8HRS SQ ; Start 01/03/19 at 14:00 Lidocaine HCl (Buffered Lidocaine 1%) 3 ml STK-MED ONCE .ROUTE ; Start 01/04/19 at 08:55; Stop 01/04/19 at 08:56; Status DC Iodixanol (Visipaque 320) 50 ml STK-MED ONCE .ROUTE ; Start 01/04/19 at 08:56; Stop 01/04/19 at 08:56; Status DC Midazolam HCl (Versed) 2 mg STK-MED ONCE .ROUTE ; Start 01/04/19 at 09:15; Stop 01/04/19 at 09:16; Status DC Fentanyl Citrate (Fentanyl 2ml Vial) 100 mcg STK-MED ONCE .ROUTE ; Start 01/04/19 at 09:15; Stop 01/04/19 at 09:16; Status DC Cefazolin Sodium 100 ml @ As Directed STK-MED ONCE IV ; Start 01/04/19 at 09:24; Stop 01/04/19 at 09:25; Status DC Midazolam HCl (Versed) 2 mg STK-MED ONCE .ROUTE ; Start 01/04/19 at 09:36; Stop 01/04/19 at 09:36; Status DC Fentanyl Citrate (Fentanyl 2ml Vial) 100 mcg STK-MED ONCE .ROUTE ; Start 01/04/19 at 09:36; Stop 01/04/19 at 09:37; Status DC Lidocaine HCl (Buffered Lidocaine 1%) 3 ml 1X ONCE IJ Last administered on 01/04/19at 09:45; Start 01/04/19 at 09:45; Stop 01/04/19 at 09:48; Status DC Midazolam HCl (Versed) 2 mg 1X ONCE IV Last administered on 01/04/19at 09:45; Start 01/04/19 at 09:45; Stop 01/04/19 at 09:48; Status DC Fentanyl Citrate (Fentanyl 2ml Vial) 100 mcg 1X ONCE IV Last administered on 01/04/19 09:45; Start 01/04/19 at 09:45; Stop 01/04/19 at 09:48; Status DC Cefazolin Sodium 50 ml @ 100 mls/hr 1X ONCE IV Last administered on 01/04/19 09:45; Start 01/04/19 at 09:45; Stop 01/04/19 at 10:14; Status DC Iodixanol (Visipaque 320) 50 ml 1X ONCE IART Last administered on 01/04/19 09:45; Start 01/04/19 at 09:45; Stop 01/04/19 at 09:48; Status DC Cefazolin Sodium 50 ml @ 100 mls/hr 1X ONCE IV Last administered on 01/04/19 09:45; Start 01/04/19 at 09:45; Stop 01/04/19 at 10:14; Status DC Fentanyl Citrate (Fentanyl 2ml Vial) 100 mcg STK-MED ONCE .ROUTE ; Start 01/04/19 at 09:51; Stop 01/04/19 at 09:52; Status DC Fentanyl Citrate (Fentanyl 2ml Vial) 75 mcg Q1HR PRN IV PAIN Last administered on 01/05/19 09:33; Start 01/04/19 at 13:15; Stop 01/05/19 at 09:45; Status DC Levofloxacin (Levaquin) 500 mg DAILY06 PO ; Start 01/05/19 at 06:00; Stop 01/12/19 at 14:00; Status UNV Amoxicillin (Amoxil) 500 mg [id number] PO Last administered on 01/04/19 14:20; Start 01/04/19 at 14:00; Stop 01/04/19 at 15:50; Status DC Amoxicillin (Amoxil) 500 mg Q12HR PO Last administered on 01/06/19 08:24; Start 01/04/19 at 21:00; Stop 01/06/19 at 12:50; Status DC Phenazopyridine HCl (Pyridium) 200 mg PRN TID PRN PO URINARY PAIN Last administered on 01/06/19 20:58; Start 01/05/19 at 09:30 Oxybutynin Chloride (Ditropan) 5 mg [id number] PO Last administered on 01/06/19 08:24; Start 01/05/19 at 14:00; Stop 01/06/19 at 12:50; Status DC Fentanyl Citrate (Fentanyl 2ml Vial) 75 mcg PRN Q2HR PRN IV PAIN Last administered on 01/07/19at 11:09; Start 01/05/19 at 14:01 Methadone HCl (Dolophine) 20 mg TID PO Last administered on 01/07/19 08:23; Start 01/05/19 at 14:00; Stop 01/07/19 at 10:54; Status DC Fentanyl Citrate (Fentanyl 2ml Vial) 75 mcg PRN Q1HR PRN IV PAIN Last administered on 01/05/19 11:57; Start 01/05/19 at 10:00; Stop 01/05/19 at 14:01; Status DC Magnesium Sulfate 50 ml @ 25 mls/hr 1X ONCE IV Last administered on 01/05/19 11:56; Start 01/05/19 at 12:00; Stop 01/05/19 at 13:59; Status DC Potassium Chloride (Klor-Con) 20 meq 1X ONCE PO Last administered on 01/05/19at 14:47; Start 01/05/19 at 15:00; Stop 01/05/19 at 15:01; Status DC Prochlorperazine Edisylate (Compazine) 10 mg PRN Q6HRS PRN IV NAUSEA/VOMITING Last administered on 01/06/19at 11:10; Start 01/06/19 at 11:00 Oxybutynin Chloride (Ditropan) 5 mg PRN TID PRN PO BLADDER SPASM Last administered on 01/06/19at 20:58; Start 01/06/19 at 12:45 Ciprofloxacin (Cipro) 250 mg BID PO Last administered on 01/07/19 08:22; Start 01/06/19 at 21:00; Stop 01/11/19 at 21:00 Oxycodone HCl (Roxicodone) 10 mg PRN Q3HRS PRN PO MODERATE TO SEVERE PAIN; Start 01/06/19 at 14:45 Methadone HCl (Dolophine) 10 mg TID PO Last administered on 01/07/19at 12:54; Start 01/07/19 at 14:00 Potassium Chloride (Klor-Con) 40 meq 1X ONCE PO Last administered on 01/07/19at 11:04; Start 01/07/19 at 11:00; Stop 01/07/19 at 11:01; Status DC Potassium Chloride (Klor-Con) 20 meq BID PO ; Start 01/07/19 at 21:00; Stop 01/10/19 at 20:59 Magnesium Sulfate/ Dextrose 100 ml @ 100 mls/hr 1X ONCE IV Last administered on 01/07/19at 12:55; Start 01/07/19 at 13:00; Stop 01/07/19 at 13:59 Magnesium Chloride (Mag Delay) 64 mg DAILY PO ; Start 01/07/19 at 13:00; Stop 01/07/19 at 12:46; Status DC Magnesium Chloride (Mag Delay) 64 mg DAILY PO ; Start 01/08/19 at 09:00 Active Scripts Active Klor-Con M20 (Potassium Chloride) 20 Meq Tab.er.prt 20 Meq PO DAILY 30 Days Polyethylene Glycol 3350 17 Gm Powd.pack 17 Gm PO PRN DAILY PRN 30 Days Colace (Docusate Sodium) 100 Mg Capsule 100 Mg PO DAILY MDD 30 30 Days Reported Keytruda (Pembrolizumab) 100 Mg/4 Ml Vial Unknown Dose IV WEEKLY Methadone Hcl 5 Mg Tablet 1.5 Tab PO Q8HRS Oxycodone Hcl 5 Mg Capsule 1-3 Tab PO PRN Q3HRS PRN Lisinopril 20 Mg Tablet 10 Mg PO DAILY Gabapentin 600 Mg Tablet 600 Mg PO BID Prevacid (Lansoprazole) 30 Mg Capsule.dr 30 Mg PO DAILY Cyclobenzaprine Hcl 10 Mg Tablet 10 Mg PO PRN TID PRN Phenergan (Promethazine HCl) 12.5 Mg Supp.rect 12.5 Mg RC PRN Q12HR PRN Ambien (Zolpidem Tartrate) 5 Mg Tablet 1 Tab PO QHS PRN Vitals/I & O Vital Sign - Last 24 Hours 01/06/19 01/06/19 01/06/19 01/06/19 13:51 14:20 15:00 16:42 Temp 98.1 98.1 Pulse 82 Resp 18 B/P (MAP) 107/67 (80) Pulse Ox 93 92 O2 Delivery Room Air Room Air Room Air Room Air 01/06/19 01/06/19 01/06/19 01/06/19 17:05 19:19 19:35 19:49 Temp 98.0 98.0 Pulse 98 Resp 20 18 20 B/P (MAP) 112/58 (76) Pulse Ox 92 92 93 93 O2 Delivery Room Air Room Air Room Air Room Air 01/06/19 01/06/19 01/07/19 01/07/19 20:00 23:46 03:44 05:10 Temp 99.0 98.2 99.0 98.2 Pulse 18 75 Resp 18 18 18 B/P (MAP) 92/37 (55) 110/46 (67) Pulse Ox 93 94 94 O2 Delivery Room Air Room Air Room Air Room Air 01/07/19 01/07/19 01/07/19 01/07/19 05:40 07:00 07:30 08:23 Temp 97.8 97.8 Pulse 96 95 Resp 18 16 B/P (MAP) 111/59 (76) 111/59 Pulse Ox 94 90 O2 Delivery Room Air Room Air Room Air 01/07/19 01/07/19 01/07/19 11:00 11:09 11:32 Pulse 102 Resp 16 B/P (MAP) 104/50 (68) Pulse Ox 92 90 90 O2 Delivery Room Air Room Air Room Air Intake and Output 01/06/19 01/06/19 01/07/19 15:00 23:00 07:00 Intake Total 900 ml 460 ml 340 ml Output Total 1550 ml 775 ml 725 ml Balance -650 ml -315 ml -385 ml WINNIE VAZ MD Jan 07, 2019 13:27
[2019-01-07 15:00] VITALS: BP 93/52
[2019-01-07 19:00] VITALS: BP 107/56
[2019-01-07] MEDS: POTASSIUM CHLORIDE 20 MEQ TABLET.ER. PO SCH (20:31)
[2019-01-07 23:04] VITALS: BP 80/40
[2019-01-08] VITALS (9 sets, daily range): BP systolic 76–130; BP diastolic 42–50
[2019-01-08] MEDS: fentaNYL PF VIAL 100 MCG/2 ML VIAL IV PRN ×7 (01:56→22:31)
[2019-01-08] MEDS: oxyCODONE IR 5 MG TABLET PO PRN ×3 (02:01→18:09)
[2019-01-08 04:22] LABS: HEMATOCRIT 21.8 % (36.0-47.0); HEMOGLOBIN 7.1 g/dL (12.0-15.5); RED BLOOD COUNT 2.76 x10^6/uL (3.50-5.40); RED CELL DISTRIBUTION WIDTH 18.5 % (11.5-14.5); WHITE BLOOD COUNT 7.5 x10^3/uL (4.0-11.0)
[2019-01-08 04:38] LABS: ALBUMIN 2.1 g/dL (3.4-5.0); ALBUMIN/GLOBULIN RATIO 0.4 (1.0-1.7); ALK PHOS 83 U/L (46-116); ANION GAP 12 (6-14); AST (SGOT) 25 U/L (15-37); BLOOD UREA NITROGEN 35 mg/dL (7-20); BUN/CREATININE RATIO 11 (6-20); CALCIUM 9.6 mg/dL (8.5-10.1); CARBON DIOXIDE 28 mmol/L (21-32); CHLORIDE 93 mmol/L (98-107); CREATININE 3.2 mg/dL (0.6-1.0); GFR 16.2; GLUCOSE 118 mg/dL (70-99); MAGNESIUM 1.8 mg/dL (1.8-2.4); POTASSIUM 3.3 mmol/L (3.5-5.1); SODIUM 133 mmol/L (136-145); TOTAL BILIRUBIN 0.3 mg/dL (0.2-1.0); TOTAL PROTEIN 7.2 g/dL (6.4-8.2)
[2019-01-08 05:10] LABS: ALT (SGPT) < 6 U/L (14-59)
[2019-01-08] MEDS: HEPARIN for SUB-Q USE 5,000 UNIT/ML VIAL. SQ SCH ×3 (05:41→22:00)
[2019-01-08] MEDS: PANTOPRAZOLE 40 MG TABLET.DR. PO SCH (07:13)
[2019-01-08] MEDS: MAGNESIUM CHLORIDE ER 64 MG TABLET.ER PO SCH (09:00)
[2019-01-08] MEDS: LISINOPRIL 5 MG TABLET. PO SCH (09:00)
[2019-01-08] MEDS: POTASSIUM CHLORIDE 20 MEQ TABLET.ER. PO SCH ×2 (09:19→22:28)
[2019-01-08] MEDS: DOCUSATE SODIUM 100 MG CAPSULE. PO SCH (09:19)
[2019-01-08] MEDS: GABAPENTIN 300 MG CAPSULE. PO SCH ×2 (09:19→22:27)
[2019-01-08] MEDS: CIPROFLOXACIN HCL 250 MG TABLET. PO SCH ×2 (09:20→22:27)
[2019-01-08] MEDS: METHADONE 10 MG TABLET. PO SCH ×3 (09:20→22:28)
[2019-01-08] MEDS ORDERED: IV NORMAL SALINE 500ML BAG 500 ML IV ONE (09:30)
--- NOTE | 2019-01-08 12:06 | PDOC ---
PROGRESS NOTES Subjective Subjective Patient c/o fatigue and nausea today. Low BP and decrease U.O. noted. Fluid bolus ordered and lasix d/c'd. Blood transfusion do to declining HGB with symptoms noted. Objective Objective Vital Signs Date Time Temp Pulse Resp B/P (MAP) Pulse Ox O2 Delivery O2 Flow Rate FiO2 01/08/19 09:00 95 89/48 01/08/19 07:00 97.9 14 91 Room Air 97.9 01/08/19 04:58 2.0 Intake and Output 01/08/19 07:00 Output Total 2275 ml Balance -2275 ml Output Urine Total 275 ml Drainage Total 2000 ml Physical Exam Abdomen: Normal bowel sounds, Other (mild tenderness) Heart: Regular rate Extremities: No edema General: Alert Lungs: Clear to auscultation Assessment Assessment Hypotension do to hypovolemia Nephrostomy tube in place Continue Pain control Palliative rad treatment done Resume Chemo once renal status and HGB improve UTI Pain control per Heme/Onc Plan Plan of Care Increase Fluid Transfuse PRBC Follow labs Increase activity Comment Review of Relevant I have reviewed the following items heather (where applicable) has been applied. Labs Laboratory Tests Test 01/07/19 09:50 01/08/19 04:15 Sodium Level 137 mmol/L (136-145) 133 mmol/L (136-145) Potassium Level 2.8 mmol/L (3.5-5.1) 3.3 mmol/L (3.5-5.1) Chloride Level 95 mmol/L (98-107) 93 mmol/L (98-107) Carbon Dioxide Level 30 mmol/L (21-32) 28 mmol/L (21-32) Anion Gap 12 (6-14) 12 (6-14) Blood Urea Nitrogen 30 mg/dL (7-20) 35 mg/dL (7-20) Creatinine 2.7 mg/dL (0.6-1.0) 3.2 mg/dL (0.6-1.0) Estimated GFR (Cockcroft-Gault) 19.7 16.2 Glucose Level 111 mg/dL (70-99) 118 mg/dL (70-99) Calcium Level 9.5 mg/dL (8.5-10.1) 9.6 mg/dL (8.5-10.1) Magnesium Level 1.3 mg/dL (1.8-2.4) 1.8 mg/dL (1.8-2.4) White Blood Count 7.5 x10^3/uL (4.0-11.0) Red Blood Count 2.76 x10^6/uL (3.50-5.40) Hemoglobin 7.1 g/dL (12.0-15.5) Hematocrit 21.8 % (36.0-47.0) Mean Corpuscular Volume 79 fL (79-100) Mean Corpuscular Hemoglobin 26 pg (25-35) Mean Corpuscular Hemoglobin Concent 33 g/dL (31-37) Red Cell Distribution Width 18.5 % (11.5-14.5) Platelet Count 260 x10^3/uL (140-400) BUN/Creatinine Ratio 11 (6-20) Total Bilirubin 0.3 mg/dL (0.2-1.0) Aspartate Amino Transf (AST/SGOT) 25 U/L (15-37) Alanine Aminotransferase (ALT/SGPT) < 6 U/L (14-59) Alkaline Phosphatase 83 U/L (46-116) Total Protein 7.2 g/dL (6.4-8.2) Albumin 2.1 g/dL (3.4-5.0) Albumin/Globulin Ratio 0.4 (1.0-1.7) Laboratory Tests Test 01/08/19 04:15 White Blood Count 7.5 x10^3/uL (4.0-11.0) Red Blood Count 2.76 x10^6/uL (3.50-5.40) Hemoglobin 7.1 g/dL (12.0-15.5) Hematocrit 21.8 % (36.0-47.0) Mean Corpuscular Volume 79 fL (79-100) Mean Corpuscular Hemoglobin 26 pg (25-35) Mean Corpuscular Hemoglobin Concent 33 g/dL (31-37) Red Cell Distribution Width 18.5 % (11.5-14.5) Platelet Count 260 x10^3/uL (140-400) Sodium Level 133 mmol/L (136-145) Potassium Level 3.3 mmol/L (3.5-5.1) Chloride Level 93 mmol/L (98-107) Carbon Dioxide Level 28 mmol/L (21-32) Anion Gap 12 (6-14) Blood Urea Nitrogen 35 mg/dL (7-20) Creatinine 3.2 mg/dL (0.6-1.0) Estimated GFR (Cockcroft-Gault) 16.2 BUN/Creatinine Ratio 11 (6-20) Glucose Level 118 mg/dL (70-99) Calcium Level 9.6 mg/dL (8.5-10.1) Magnesium Level 1.8 mg/dL (1.8-2.4) Total Bilirubin 0.3 mg/dL (0.2-1.0) Aspartate Amino Transf (AST/SGOT) 25 U/L (15-37) Alanine Aminotransferase (ALT/SGPT) < 6 U/L (14-59) Alkaline Phosphatase 83 U/L (46-116) Total Protein 7.2 g/dL (6.4-8.2) Albumin 2.1 g/dL (3.4-5.0) Albumin/Globulin Ratio 0.4 (1.0-1.7) Microbiology 12/29/18 Blood Culture - Final, Complete NO GROWTH AFTER 5 DAYS 12/29/18 Urine Culture - Final, Complete 12/29/18 Urine Culture Result 1 (FUNMI) - Final, Complete 12/29/18 Antimicrobic Susceptibility - Final, Complete Medications Current Medications Sodium Chloride 1,000 ml @ 1,000 mls/hr 1X ONCE IV Last administered on 12/29/18at 14:27; Start 12/29/18 at 14:15; Stop 12/29/18 at 15:14; Status DC Fentanyl Citrate (Fentanyl 2ml Vial) 50 mcg 1X ONCE IV Last administered on 12/29/18at 14:31; Start 12/29/18 at 14:15; Stop 12/29/18 at 14:16; Status DC Fentanyl Citrate (Fentanyl 2ml Vial) 75 mcg 1X ONCE IV Last administered on 12/29/18at 15:09; Start 12/29/18 at 15:15; Stop 12/29/18 at 15:16; Status DC Fentanyl Citrate (Fentanyl 2ml Vial) 75 mcg 1X ONCE IV Last administered on 12/29/18at 15:42; Start 12/29/18 at 15:45; Stop 12/29/18 at 15:46; Status DC Ceftriaxone Sodium (Rocephin) 1 gm 1X ONCE IVP Last administered on 12/29/18at 17:01; Start 12/29/18 at 16:30; Stop 12/29/18 at 16:31; Status DC Doxycycline Hyclate 100 mg/ Dextrose 100 ml @ 50 mls/hr 1X ONCE IV Last administered on 12/29/18at 17:02; Start 12/29/18 at 16:30; Stop 12/29/18 at 18:29; Status DC Fentanyl Citrate (Fentanyl 2ml Vial) 50 mcg PRN Q1HR PRN IV PAIN Last administered on 12/29/18at 16:53; Start 12/29/18 at 16:45; Stop 12/29/18 at 18:55; Status DC Sodium Chloride 1,000 ml @ 100 mls/hr Q10H IV Last administered on 12/30/18at 12:31; Start 12/29/18 at 16:31; Stop 12/30/18 at 16:30; Status DC Fentanyl Citrate (Fentanyl 2ml Vial) 75 mcg Q2HR PRN IV PAIN Last administered on 01/04/19at 12:10; Start 12/29/18 at 19:00; Stop 01/04/19 at 13:09; Status DC Methadone HCl (Dolophine) 7.5 mg Q8HRS PO ; Start 12/29/18 at 22:00; Status UNV Methadone HCl (Dolophine) 7.5 mg Q8HRS PO Last administered on 01/05/19at 06:29; Start 12/29/18 at 22:00; Stop 01/05/19 at 09:43; Status DC Docusate Sodium (Colace) 100 mg BID PRN PO HARD STOOLS Last administered on 01/07/19at 23:34; Start 12/29/18 at 19:15 Polyethylene Glycol (miraLAX PACKET) 17 gm PRN DAILY PRN PO CONSTIPATION; Start 12/29/18 at 19:15 Pharmacy Consult (C.diff Med Screen By Rx) 1 each 1X ONCE MC ; Start 12/30/18 at 09:00; Stop 12/30/18 at 09:01; Status Cancel Cyclobenzaprine HCl (Flexeril) 10 mg PRN TID PRN PO back pain; Start 12/30/18 at 09:00 Docusate Sodium (Colace) 100 mg DAILY PO Last administered on 01/08/19at 09:19; Start 12/30/18 at 09:00 Lisinopril (Prinivil) 10 mg DAILY PO ; Start 12/30/18 at 09:00; Stop 12/31/18 at 08:39; Status DC Polyethylene Glycol (miraLAX PACKET) 17 gm PRN DAILY PRN PO CONSTIPATION; Start 12/30/18 at 09:00; Stop 12/30/18 at 09:19; Status DC Zolpidem Tartrate (Ambien) 5 mg QHS PRN PO INSOMNIA Last administered on 01/06/19at 20:59; Start 12/30/18 at 09:00 Gabapentin (Neurontin) 600 mg BID PO Last administered on 01/08/19at 09:19; Start 12/30/18 at 09:00 Pantoprazole Sodium (Protonix) 40 mg DAILYAC PO Last administered on 01/08/19at 07:13; Start 12/30/18 at 09:00 Furosemide (Lasix) 40 mg [id number] PO Last administered on 01/07/19at 12:54; Start 01/01/19 at 11:00; Stop 01/08/19 at 09:09; Status DC Lisinopril (Prinivil) 2.5 mg DAILY PO Last administered on 01/07/19at 08:23; Start 01/03/19 at 09:00; Stop 01/08/19 at 11:50; Status DC Heparin Sodium (Porcine) (Heparin Sodium) 5,000 unit Q8HRS SQ ; Start 01/03/19 at 14:00 Lidocaine HCl (Buffered Lidocaine 1%) 3 ml STK-MED ONCE .ROUTE ; Start 01/04/19 at 08:55; Stop 01/04/19 at 08:56; Status DC Iodixanol (Visipaque 320) 50 ml STK-MED ONCE .ROUTE ; Start 01/04/19 at 08:56; Stop 01/04/19 at 08:56; Status DC Midazolam HCl (Versed) 2 mg STK-MED ONCE .ROUTE ; Start 01/04/19 at 09:15; Stop 01/04/19 at 09:16; Status DC Fentanyl Citrate (Fentanyl 2ml Vial) 100 mcg STK-MED ONCE .ROUTE ; Start 01/04/19 at 09:15; Stop 01/04/19 at 09:16; Status DC Cefazolin Sodium 100 ml @ As Directed STK-MED ONCE IV ; Start 01/04/19 at 09:24; Stop 01/04/19 at 09:25; Status DC Midazolam HCl (Versed) 2 mg STK-MED ONCE .ROUTE ; Start 01/04/19 at 09:36; Stop 01/04/19 at 09:36; Status DC Fentanyl Citrate (Fentanyl 2ml Vial) 100 mcg STK-MED ONCE .ROUTE ; Start 01/04/19 at 09:36; Stop 01/04/19 at 09:37; Status DC Lidocaine HCl (Buffered Lidocaine 1%) 3 ml 1X ONCE IJ Last administered on 01/04/19at 09:45; Start 01/04/19 at 09:45; Stop 01/04/19 at 09:48; Status DC Midazolam HCl (Versed) 2 mg 1X ONCE IV Last administered on 01/04/19at 09:45; Start 01/04/19 at 09:45; Stop 01/04/19 at 09:48; Status DC Fentanyl Citrate (Fentanyl 2ml Vial) 100 mcg 1X ONCE IV Last administered on 01/04/19at 09:45; Start 01/04/19 at 09:45; Stop 01/04/19 at 09:48; Status DC Cefazolin Sodium 50 ml @ 100 mls/hr 1X ONCE IV Last administered on 01/04/19at 09:45; Start 01/04/19 at 09:45; Stop 01/04/19 at 10:14; Status DC Iodixanol (Visipaque 320) 50 ml 1X ONCE IART Last administered on 01/04/19 09:45; Start 01/04/19 at 09:45; Stop 01/04/19 at 09:48; Status DC Cefazolin Sodium 50 ml @ 100 mls/hr 1X ONCE IV Last administered on 01/04/19at 09:45; Start 01/04/19 at 09:45; Stop 01/04/19 at 10:14; Status DC Fentanyl Citrate (Fentanyl 2ml Vial) 100 mcg STK-MED ONCE .ROUTE ; Start 01/04/19 at 09:51; Stop 01/04/19 at 09:52; Status DC Fentanyl Citrate (Fentanyl 2ml Vial) 75 mcg Q1HR PRN IV PAIN Last administered on 01/05/19at 09:33; Start 01/04/19 at 13:15; Stop 01/05/19 at 09:45; Status DC Levofloxacin (Levaquin) 500 mg DAILY06 PO ; Start 01/05/19 at 06:00; Stop 01/12/19 at 14:00; Status UNV Amoxicillin (Amoxil) 500 mg [id number] PO Last administered on 01/04/19 14:20; Start 01/04/19 at 14:00; Stop 01/04/19 at 15:50; Status DC Amoxicillin (Amoxil) 500 mg Q12HR PO Last administered on 01/06/19at 08:24; Start 01/04/19 at 21:00; Stop 01/06/19 at 12:50; Status DC Phenazopyridine HCl (Pyridium) 200 mg PRN TID PRN PO URINARY PAIN Last administered on 01/06/19 20:58; Start 01/05/19 at 09:30; Stop 01/08/19 at 11:50; Status DC Oxybutynin Chloride (Ditropan) 5 mg [id number] PO Last administered on 01/06/19 08:24; Start 01/05/19 at 14:00; Stop 01/06/19 at 12:50; Status DC Fentanyl Citrate (Fentanyl 2ml Vial) 75 mcg PRN Q2HR PRN IV PAIN Last administered on 01/08/19 04:58; Start 01/05/19 at 14:01 Methadone HCl (Dolophine) 20 mg TID PO Last administered on 01/07/19 08:23; Start 01/05/19 at 14:00; Stop 01/07/19 at 10:54; Status DC Fentanyl Citrate (Fentanyl 2ml Vial) 75 mcg PRN Q1HR PRN IV PAIN Last administered on 01/05/19 11:57; Start 01/05/19 at 10:00; Stop 01/05/19 at 14:01; Status DC Magnesium Sulfate 50 ml @ 25 mls/hr 1X ONCE IV Last administered on 01/05/19 11:56; Start 01/05/19 at 12:00; Stop 01/05/19 at 13:59; Status DC Potassium Chloride (Klor-Con) 20 meq 1X ONCE PO Last administered on 01/05/19 14:47; Start 01/05/19 at 15:00; Stop 01/05/19 at 15:01; Status DC Prochlorperazine Edisylate (Compazine) 10 mg PRN Q6HRS PRN IV NAUSEA/VOMITING Last administered on 01/06/19at 11:10; Start 01/06/19 at 11:00 Oxybutynin Chloride (Ditropan) 5 mg PRN TID PRN PO BLADDER SPASM Last administered on 01/06/19at 20:58; Start 01/06/19 at 12:45 Ciprofloxacin (Cipro) 250 mg BID PO Last administered on 01/08/19at 09:20; Start 01/06/19 at 21:00; Stop 01/11/19 at 21:00 Oxycodone HCl (Roxicodone) 10 mg PRN Q3HRS PRN PO MODERATE TO SEVERE PAIN Last administered on 01/08/19at 02:01; Start 01/06/19 at 14:45 Methadone HCl (Dolophine) 10 mg TID PO Last administered on 01/08/19 09:20; Start 01/07/19 at 14:00 Potassium Chloride (Klor-Con) 40 meq 1X ONCE PO Last administered on 01/07/19at 11:04; Start 01/07/19 at 11:00; Stop 01/07/19 at 11:01; Status DC Potassium Chloride (Klor-Con) 20 meq BID PO Last administered on 01/08/19at 09:19; Start 01/07/19 at 21:00; Stop 01/10/19 at 20:59 Magnesium Sulfate/ Dextrose 100 ml @ 100 mls/hr 1X ONCE IV Last administered on 01/07/19at 12:55; Start 01/07/19 at 13:00; Stop 01/07/19 at 13:59; Status DC Magnesium Chloride (Mag Delay) 64 mg DAILY PO ; Start 01/07/19 at 13:00; Stop 01/07/19 at 12:46; Status DC Magnesium Chloride (Mag Delay) 64 mg DAILY PO ; Start 01/08/19 at 09:00 Sodium Chloride 500 ml @ 500 mls/hr 1X ONCE IV Last administered on 01/08/19at 09:30; Start 01/08/19 at 09:30; Stop 01/08/19 at 10:29; Status DC Active Scripts Active Klor-Con M20 (Potassium Chloride) 20 Meq Tab.er.prt 20 Meq PO DAILY 30 Days Polyethylene Glycol 3350 17 Gm Powd.pack 17 Gm PO PRN DAILY PRN 30 Days Colace (Docusate Sodium) 100 Mg Capsule 100 Mg PO DAILY MDD 30 30 Days Reported Keytruda (Pembrolizumab) 100 Mg/4 Ml Vial Unknown Dose IV WEEKLY Methadone Hcl 5 Mg Tablet 1.5 Tab PO Q8HRS Oxycodone Hcl 5 Mg Capsule 1-3 Tab PO PRN Q3HRS PRN Lisinopril 20 Mg Tablet 10 Mg PO DAILY Gabapentin 600 Mg Tablet 600 Mg PO BID Prevacid (Lansoprazole) 30 Mg Capsule.dr 30 Mg PO DAILY Cyclobenzaprine Hcl 10 Mg Tablet 10 Mg PO PRN TID PRN Phenergan (Promethazine HCl) 12.5 Mg Supp.rect 12.5 Mg RC PRN Q12HR PRN Ambien (Zolpidem Tartrate) 5 Mg Tablet 1 Tab PO QHS PRN Vitals/I & O Vital Sign - Last 24 Hours 01/07/19 01/07/19 01/07/19 01/07/19 14:03 14:28 15:00 19:00 Temp 98.1 97.7 98.1 97.7 Pulse 92 101 Resp 18 20 B/P (MAP) 93/52 (66) 107/56 (73) Pulse Ox 90 92 93 O2 Delivery Room Air Room Air Room Air Room Air 01/07/19 01/07/19 01/07/19 01/07/19 20:00 20:26 20:56 23:04 Temp 98.7 98.7 Pulse 93 Resp 20 20 18 B/P (MAP) 80/40 (53) Pulse Ox 93 93 93 O2 Delivery Room Air Room Air Room Air Nasal Cannula 01/07/19 01/08/19 01/08/19 01/08/19 23:29 00:00 00:22 01:56 Resp 20 18 20 B/P (MAP) 89/47 (61) Pulse Ox 93 94 94 O2 Delivery Nasal Cannula Nasal Cannula Nasal Cannula O2 Flow Rate 2.0 2.0 2.0 01/08/19 01/08/19 01/08/19 01/08/19 02:01 02:26 03:01 03:45 Temp 97.4 97.4 Pulse 95 Resp 20 20 16 20 B/P (MAP) 89/48 (62) Pulse Ox 94 94 94 96 O2 Delivery Room Air Nasal Cannula Room Air Nasal Cannula O2 Flow Rate 2.0 2.0 2.0 01/08/19 01/08/19 01/08/19 04:58 07:00 09:00 Temp 97.9 97.9 Pulse 85 95 Resp 18 14 B/P (MAP) 86/42 (57) 89/48 Pulse Ox 96 91 O2 Delivery Room Air Room Air O2 Flow Rate 2.0 Intake and Output 01/07/19 01/07/19 01/08/19 15:00 23:00 07:00 Output Total 1600 ml 675 ml Balance -1600 ml -675 ml WINNIE VAZ MD Jan 08, 2019 12:06
--- NOTE | 2019-01-08 13:42 | PDOC ---
SUBJECTIVE ROS asked to see for BRANDIN + CKD ? asks for regular diet CVS: no Orthopnea, no CP RESP: no SOB, no CHAPMAN GI: min Nausea, occ Vomiting : no Dysuria, no Urgency OBJECTIVE Vital Signs Vital Signs Date Time Temp Pulse Resp B/P (MAP) Pulse Ox O2 Delivery O2 Flow Rate FiO2 01/08/19 13:09 Room Air 01/08/19 11:00 97.8 78 16 90/47 (61) 92 97.8 01/08/19 04:58 2.0 I & 0 Intake and Output 01/08/19 07:00 Output Total 2275 ml Balance -2275 ml Output Urine Total 275 ml Drainage Total 2000 ml PHYSICAL EXAM Physical Exam GEN: Awake, Oriented x 3, In no distress EYES: Vision Unchanged, Conjunctiva Normal EN: No EN Drainage, Mucous Membranes moist NECK: no JVD, no JVP, Supple, no Thyromegaly CVS: S1S2, no Murmur, No Gallop, No Rub,no Edema RESP: no Rales, no Rhonchi,no Acc. Muscle Use GI: BS + ve, NO Bruit, Non Tender, Non Distended : no CVA tenderness, no Suprapubic Tenderness - Aniceto PCNs DIAGNOSIS/ASSESSMENT Assessment & Plan AK vs CKD III : Doubt that her NV are related to renal function but if no other etio (ie Chemo) are found then may need to consider HD to r/o Uremia. Current fluid and E-lyte status does not necessitate emergent need for dialysis. Will re-evaluate for dialysis in the am Low K - liberalize diet and reval. Partly associated with Low Mag in the past too ANemia - to get BT later today Hydronephrosis - now with PCNs in place Low BP - IVF as ordered. Pt has had significant -ve fluid balance over the last few days as noted. Dec Uo over the last few hrs - presumably asso with above - IVF as ordered Discussed Plan of Care with family/ friends at bedside COMMENT/RELEVANT DATA Meds Current Medications Medications (Trade) Dose Ordered Sig/Sanna Start Time Stop Time Status Last Admin Dose Admin Amoxicillin (Amoxil) 500 mg Q12HR 01/04/19 21:00 01/06/19 12:50 DC 01/06/19 08:24 500 MG Cefazolin Sodium 50 ml @ 100 mls/hr 1X ONCE 01/04/19 09:45 10/8/19 10:14 DC 01/04/19 09:45 100 MLS/HR Ceftriaxone Sodium (Rocephin) 1 gm 1X ONCE 12/29/18 16:30 12/29/18 16:31 DC 12/29/18 17:01 1 GM Ciprofloxacin (Cipro) 250 mg BID 01/06/19 21:00 01/11/19 21:00 01/08/19 09:20 250 MG Cyclobenzaprine HCl (Flexeril) 10 mg PRN TID PRN 12/30/18 09:00 Docusate Sodium (Colace) 100 mg DAILY 12/30/18 09:00 01/08/19 09:19 100 MG Doxycycline Hyclate 100 mg/ Dextrose 100 ml @ 50 mls/hr 1X ONCE 12/29/18 16:30 12/29/18 18:29 DC 12/29/18 17:02 50 MLS/HR Fentanyl Citrate (Fentanyl 2ml Vial) 75 mcg PRN Q1HR PRN 01/05/19 10:00 01/05/19 14:01 DC 01/05/19 11:57 75 MCG Furosemide (Lasix) 40 mg [id number] 01/01/19 11:00 01/08/19 09:09 DC 01/07/19 12:54 40 MG Gabapentin (Neurontin) 600 mg BID 12/30/18 09:00 01/08/19 09:19 600 MG Heparin Sodium (Porcine) (Heparin Sodium) 5,000 unit Q8HRS 01/03/19 14:00 Iodixanol (Visipaque 320) 50 ml 1X ONCE 01/04/19 09:45 01/04/19 09:48 DC 01/04/19 09:45 40 ML Levofloxacin (Levaquin) 500 mg DAILY06 01/05/19 06:00 01/12/19 14:00 UNV Lidocaine HCl (Buffered Lidocaine 1%) 3 ml 1X ONCE 01/04/19 09:45 01/04/19 09:48 DC 01/04/19 09:45 13 ML Lisinopril (Prinivil) 2.5 mg DAILY 01/03/19 09:00 01/08/19 11:50 DC 01/07/19 08:23 2.5 MG Magnesium Chloride (Mag Delay) 64 mg DAILY 01/08/19 09:00 Magnesium Sulfate 50 ml @ 25 mls/hr 1X ONCE 01/05/19 12:00 01/05/19 13:59 DC 01/05/19 11:56 25 MLS/HR Magnesium Sulfate/ Dextrose 100 ml @ 100 mls/hr 1X ONCE 01/07/19 13:00 01/07/19 13:59 DC 01/07/19 12:55 100 MLS/HR Methadone HCl (Dolophine) 10 mg TID 01/07/19 14:00 01/08/19 09:20 10 MG Midazolam HCl (Versed) 2 mg 1X ONCE 01/04/19 09:45 01/04/19 09:48 DC 01/04/19 09:45 3 MG Oxybutynin Chloride (Ditropan) 5 mg PRN TID PRN 01/06/19 12:45 01/06/19 20:58 5 MG Oxycodone HCl (Roxicodone) 10 mg PRN Q3HRS PRN 01/06/19 14:45 01/08/19 02:01 10 MG Pantoprazole Sodium (Protonix) 40 mg DAILYAC 12/30/18 09:00 01/08/19 07:13 40 MG Pharmacy Consult (C.diff Med Screen By Rx) 1 each 1X ONCE 12/30/18 09:00 12/30/18 09:01 Cancel Phenazopyridine HCl (Pyridium) 200 mg PRN TID PRN 01/05/19 09:30 01/08/19 11:50 DC 01/06/19 20:58 200 MG Polyethylene Glycol (miraLAX PACKET) 17 gm PRN DAILY PRN 12/30/18 09:00 12/30/18 09:19 DC Potassium Chloride (Klor-Con) 20 meq BID 01/07/19 21:00 01/10/19 20:59 01/08/19 09:19 20 MEQ Prochlorperazine Edisylate (Compazine) 10 mg PRN Q6HRS PRN 01/06/19 11:00 01/06/19 11:10 10 MG Sodium Chloride 500 ml @ 500 mls/hr 1X ONCE 01/08/19 09:30 01/08/19 10:29 DC 01/08/19 09:30 500 MLS/HR Zolpidem Tartrate (Ambien) 5 mg QHS PRN 12/30/18 09:00 01/06/19 20:59 5 MG Lab Laboratory Tests Test 01/08/19 04:15 White Blood Count 7.5 x10^3/uL (4.0-11.0) Red Blood Count 2.76 x10^6/uL (3.50-5.40) Hemoglobin 7.1 g/dL (12.0-15.5) Hematocrit 21.8 % (36.0-47.0) Mean Corpuscular Volume 79 fL (79-100) Mean Corpuscular Hemoglobin 26 pg (25-35) Mean Corpuscular Hemoglobin Concent 33 g/dL (31-37) Red Cell Distribution Width 18.5 % (11.5-14.5) Platelet Count 260 x10^3/uL (140-400) Sodium Level 133 mmol/L (136-145) Potassium Level 3.3 mmol/L (3.5-5.1) Chloride Level 93 mmol/L (98-107) Carbon Dioxide Level 28 mmol/L (21-32) Anion Gap 12 (6-14) Blood Urea Nitrogen 35 mg/dL (7-20) Creatinine 3.2 mg/dL (0.6-1.0) Estimated GFR (Cockcroft-Gault) 16.2 BUN/Creatinine Ratio 11 (6-20) Glucose Level 118 mg/dL (70-99) Calcium Level 9.6 mg/dL (8.5-10.1) Magnesium Level 1.8 mg/dL (1.8-2.4) Total Bilirubin 0.3 mg/dL (0.2-1.0) Aspartate Amino Transf (AST/SGOT) 25 U/L (15-37) Alanine Aminotransferase (ALT/SGPT) < 6 U/L (14-59) Alkaline Phosphatase 83 U/L (46-116) Total Protein 7.2 g/dL (6.4-8.2) Albumin 2.1 g/dL (3.4-5.0) Albumin/Globulin Ratio 0.4 (1.0-1.7) Results All relevant outside records, renal labs, imaging studies, telemetry/EKG's were reviewed. DIOMEDES WATERS MD Jan 08, 2019 13:42
[2019-01-08] MEDS ORDERED: IV NORMAL SALINE 500ML BAG 500 ML IV PRN (14:00)
[2019-01-08] MEDS ORDERED: SODIUM PHOSPHATES 19/7GM 133 ML ENEMA. PR ONE (18:30)
[2019-01-08] MEDS ORDERED: fentaNYL PF VIAL 100 MCG/2 ML VIAL IVP ONE (18:30)
[2019-01-09 03:00] VITALS: BP 94/46
[2019-01-09] MEDS: HEPARIN for SUB-Q USE 5,000 UNIT/ML VIAL. SQ SCH ×3 (05:37→22:00)
[2019-01-09] MEDS: PANTOPRAZOLE 40 MG TABLET.DR. PO SCH (06:10)
[2019-01-09] MEDS: fentaNYL PF VIAL 100 MCG/2 ML VIAL IV PRN ×7 (06:10→23:00)
[2019-01-09 06:54] LABS: CALCIUM 9.8 mg/dL (8.5-10.1); GFR 17.5
[2019-01-09 07:00] VITALS: BP 104/40
[2019-01-09 07:10] LABS: BASO % 0 % (0-3); EOS # 0.1 x10^3/uL (0.0-0.7); EOS % 1 % (0-3); HEMATOCRIT 23.7 % (36.0-47.0); HEMOGLOBIN 7.9 g/dL (12.0-15.5); LYMPH # 0.5 x10^3/uL (1.0-4.8); LYMPH % 5 % (24-48); MEAN CORPUSCULAR HEMOGLOBIN 27 pg (25-35); MEAN CORPUSCULAR HGB CONC 34 g/dL (31-37); MEAN CORPUSCULAR VOLUME 80 fL (79-100); MONO # 0.4 x10^3/uL (0.0-1.1); MONO % 4 % (0-9); NEUT # 8.6 x10^3/uL (1.8-7.7); NEUT % 90 % (31-73); PLATELET COUNT 241 x10^3/uL (140-400); RED BLOOD COUNT 2.95 x10^6/uL (3.50-5.40); RED CELL DISTRIBUTION WIDTH 18.1 % (11.5-14.5); WHITE BLOOD COUNT 9.6 x10^3/uL (4.0-11.0)
[2019-01-09] MEDS: GABAPENTIN 300 MG CAPSULE. PO SCH ×2 (08:39→20:17)
[2019-01-09] MEDS: POTASSIUM CHLORIDE 20 MEQ TABLET.ER. PO SCH ×2 (08:39→20:17)
[2019-01-09] MEDS: DOCUSATE SODIUM 100 MG CAPSULE. PO SCH (08:40)
[2019-01-09] MEDS: CIPROFLOXACIN HCL 250 MG TABLET. PO SCH ×2 (08:40→20:17)
[2019-01-09] MEDS: METHADONE 10 MG TABLET. PO SCH ×3 (08:40→20:17)
[2019-01-09] MEDS: MAGNESIUM CHLORIDE ER 64 MG TABLET.ER PO SCH (08:41)
--- NOTE | 2019-01-09 08:58 | PDOC ---
PROGRESS NOTES Subjective Subjective Patient c/o abd pain lower abd. patient w/o adequate BM for >3 days small BM yesterday. BM still low . U.O. improved eating well.hgb improved to 7.9 Objective Objective Vital Signs Date Time Temp Pulse Resp B/P (MAP) Pulse Ox O2 Delivery O2 Flow Rate FiO2 01/09/19 08:42 90 Nasal Cannula 2.0 01/09/19 03:00 97.6 118 18 94/46 (62) 97.6 Intake and Output 01/09/19 07:00 Intake Total 400 ml Output Total 650 ml Balance -250 ml Intake Oral 400 ml Output Urine Total 650 ml # Voids 4 Physical Exam Abdomen: Other (full + BS) Heart: Regular rate Extremities: Other (1+ edema) General: Alert Lungs: Clear to auscultation Assessment Assessment Constipation Hypotension do to hypovolemia Nephrostomy tube in place Continue Pain control Palliative rad treatment done Resume Chemo once renal status and HGB improve UTI Pain control per Heme/Onc Plan Plan of Care Mag citrate Fleets followed by soupsuds enema if no BM Increase activity Comment Review of Relevant I have reviewed the following items heather (where applicable) has been applied. Labs Laboratory Tests Test 01/07/19 09:50 01/08/19 04:15 01/09/19 06:30 Sodium Level 137 mmol/L (136-145) 133 mmol/L (136-145) 133 mmol/L (136-145) Potassium Level 2.8 mmol/L (3.5-5.1) 3.3 mmol/L (3.5-5.1) 4.0 mmol/L (3.5-5.1) Chloride Level 95 mmol/L (98-107) 93 mmol/L (98-107) 96 mmol/L (98-107) Carbon Dioxide Level 30 mmol/L (21-32) 28 mmol/L (21-32) 28 mmol/L (21-32) Anion Gap 12 (6-14) 12 (6-14) 9 (6-14) Blood Urea Nitrogen 30 mg/dL (7-20) 35 mg/dL (7-20) 36 mg/dL (7-20) Creatinine 2.7 mg/dL (0.6-1.0) 3.2 mg/dL (0.6-1.0) 3.0 mg/dL (0.6-1.0) Estimated GFR (Cockcroft-Gault) 19.7 16.2 17.5 Glucose Level 111 mg/dL (70-99) 118 mg/dL (70-99) 107 mg/dL (70-99) Calcium Level 9.5 mg/dL (8.5-10.1) 9.6 mg/dL (8.5-10.1) 9.8 mg/dL (8.5-10.1) Magnesium Level 1.3 mg/dL (1.8-2.4) 1.8 mg/dL (1.8-2.4) White Blood Count 7.5 x10^3/uL (4.0-11.0) 9.6 x10^3/uL (4.0-11.0) Red Blood Count 2.76 x10^6/uL (3.50-5.40) 2.95 x10^6/uL (3.50-5.40) Hemoglobin 7.1 g/dL (12.0-15.5) 7.9 g/dL (12.0-15.5) Hematocrit 21.8 % (36.0-47.0) 23.7 % (36.0-47.0) Mean Corpuscular Volume 79 fL (79-100) 80 fL (79-100) Mean Corpuscular Hemoglobin 26 pg (25-35) 27 pg (25-35) Mean Corpuscular Hemoglobin Concent 33 g/dL (31-37) 34 g/dL (31-37) Red Cell Distribution Width 18.5 % (11.5-14.5) 18.1 % (11.5-14.5) Platelet Count 260 x10^3/uL (140-400) 241 x10^3/uL (140-400) BUN/Creatinine Ratio 11 (6-20) Total Bilirubin 0.3 mg/dL (0.2-1.0) Aspartate Amino Transf (AST/SGOT) 25 U/L (15-37) Alanine Aminotransferase (ALT/SGPT) < 6 U/L (14-59) Alkaline Phosphatase 83 U/L (46-116) Total Protein 7.2 g/dL (6.4-8.2) Albumin 2.1 g/dL (3.4-5.0) Albumin/Globulin Ratio 0.4 (1.0-1.7) Neutrophils (%) (Auto) 90 % (31-73) Lymphocytes (%) (Auto) 5 % (24-48) Monocytes (%) (Auto) 4 % (0-9) Eosinophils (%) (Auto) 1 % (0-3) Basophils (%) (Auto) 0 % (0-3) Neutrophils # (Auto) 8.6 x10^3/uL (1.8-7.7) Lymphocytes # (Auto) 0.5 x10^3/uL (1.0-4.8) Monocytes # (Auto) 0.4 x10^3/uL (0.0-1.1) Eosinophils # (Auto) 0.1 x10^3/uL (0.0-0.7) Basophils # (Auto) 0.0 x10^3/uL (0.0-0.2) Laboratory Tests Test 01/09/19 06:30 White Blood Count 9.6 x10^3/uL (4.0-11.0) Red Blood Count 2.95 x10^6/uL (3.50-5.40) Hemoglobin 7.9 g/dL (12.0-15.5) Hematocrit 23.7 % (36.0-47.0) Mean Corpuscular Volume 80 fL (79-100) Mean Corpuscular Hemoglobin 27 pg (25-35) Mean Corpuscular Hemoglobin Concent 34 g/dL (31-37) Red Cell Distribution Width 18.1 % (11.5-14.5) Platelet Count 241 x10^3/uL (140-400) Neutrophils (%) (Auto) 90 % (31-73) Lymphocytes (%) (Auto) 5 % (24-48) Monocytes (%) (Auto) 4 % (0-9) Eosinophils (%) (Auto) 1 % (0-3) Basophils (%) (Auto) 0 % (0-3) Neutrophils # (Auto) 8.6 x10^3/uL (1.8-7.7) Lymphocytes # (Auto) 0.5 x10^3/uL (1.0-4.8) Monocytes # (Auto) 0.4 x10^3/uL (0.0-1.1) Eosinophils # (Auto) 0.1 x10^3/uL (0.0-0.7) Basophils # (Auto) 0.0 x10^3/uL (0.0-0.2) Sodium Level 133 mmol/L (136-145) Potassium Level 4.0 mmol/L (3.5-5.1) Chloride Level 96 mmol/L (98-107) Carbon Dioxide Level 28 mmol/L (21-32) Anion Gap 9 (6-14) Blood Urea Nitrogen 36 mg/dL (7-20) Creatinine 3.0 mg/dL (0.6-1.0) Estimated GFR (Cockcroft-Gault) 17.5 Glucose Level 107 mg/dL (70-99) Calcium Level 9.8 mg/dL (8.5-10.1) Microbiology 12/29/18 Blood Culture - Final, Complete NO GROWTH AFTER 5 DAYS 12/29/18 Urine Culture - Final, Complete 12/29/18 Urine Culture Result 1 (FUNMI) - Final, Complete 12/29/18 Antimicrobic Susceptibility - Final, Complete Medications Current Medications Sodium Chloride 1,000 ml @ 1,000 mls/hr 1X ONCE IV Last administered on 12/29/18at 14:27; Start 12/29/18 at 14:15; Stop 12/29/18 at 15:14; Status DC Fentanyl Citrate (Fentanyl 2ml Vial) 50 mcg 1X ONCE IV Last administered on 12/29/18at 14:31; Start 12/29/18 at 14:15; Stop 12/29/18 at 14:16; Status DC Fentanyl Citrate (Fentanyl 2ml Vial) 75 mcg 1X ONCE IV Last administered on 12/29/18at 15:09; Start 12/29/18 at 15:15; Stop 12/29/18 at 15:16; Status DC Fentanyl Citrate (Fentanyl 2ml Vial) 75 mcg 1X ONCE IV Last administered on 12/29/18at 15:42; Start 12/29/18 at 15:45; Stop 12/29/18 at 15:46; Status DC Ceftriaxone Sodium (Rocephin) 1 gm 1X ONCE IVP Last administered on 12/29/18at 17:01; Start 12/29/18 at 16:30; Stop 12/29/18 at 16:31; Status DC Doxycycline Hyclate 100 mg/ Dextrose 100 ml @ 50 mls/hr 1X ONCE IV Last administered on 12/29/18 17:02; Start 12/29/18 at 16:30; Stop 12/29/18 at 18:29; Status DC Fentanyl Citrate (Fentanyl 2ml Vial) 50 mcg PRN Q1HR PRN IV PAIN Last administe red on 12/29/18at 16:53; Start 12/29/18 at 16:45; Stop 12/29/18 at 18:55; Status DC Sodium Chloride 1,000 ml @ 100 mls/hr Q10H IV Last administered on 12/30/18at 12:31; Start 12/29/18 at 16:31; Stop 12/30/18 at 16:30; Status DC Fentanyl Citrate (Fentanyl 2ml Vial) 75 mcg Q2HR PRN IV PAIN Last administered on 01/04/19at 12:10; Start 12/29/18 at 19:00; Stop 01/04/19 at 13:09; Status DC Methadone HCl (Dolophine) 7.5 mg Q8HRS PO ; Start 12/29/18 at 22:00; Status UNV Methadone HCl (Dolophine) 7.5 mg Q8HRS PO Last administered on 01/05/19at 06:29; Start 12/29/18 at 22:00; Stop 01/05/19 at 09:43; Status DC Docusate Sodium (Colace) 100 mg BID PRN PO HARD STOOLS Last administered on 01/07/19at 23:34; Start 12/29/18 at 19:15 Polyethylene Glycol (miraLAX PACKET) 17 gm PRN DAILY PRN PO CONSTIPATION Last administered on 01/08/19at 17:21; Start 12/29/18 at 19:15 Pharmacy Consult (C.diff Med Screen By Rx) 1 each 1X ONCE MC ; Start 12/30/18 at 09:00; Stop 12/30/18 at 09:01; Status Cancel Cyclobenzaprine HCl (Flexeril) 10 mg PRN TID PRN PO back pain; Start 12/30/18 at 09:00 Docusate Sodium (Colace) 100 mg DAILY PO Last administered on 01/08/19at 09:19; Start 12/30/18 at 09:00 Lisinopril (Prinivil) 10 mg DAILY PO ; Start 12/30/18 at 09:00; Stop 12/31/18 at 08:39; Status DC Polyethylene Glycol (miraLAX PACKET) 17 gm PRN DAILY PRN PO CONSTIPATION; Start 12/30/18 at 09:00; Stop 12/30/18 at 09:19; Status DC Zolpidem Tartrate (Ambien) 5 mg QHS PRN PO INSOMNIA Last administered on 01/06/19at 20:59; Start 12/30/18 at 09:00 Gabapentin (Neurontin) 600 mg BID PO Last administered on 01/09/19at 08:39; Start 12/30/18 at 09:00 Pantoprazole Sodium (Protonix) 40 mg DAILYAC PO Last administered on 01/09/19at 06:10; Start 12/30/18 at 09:00 Furosemide (Lasix) 40 mg [id number] PO Last administered on 01/07/19at 12:54; Start 01/01/19 at 11:00; Stop 01/08/19 at 09:09; Status DC Lisinopril (Prinivil) 2.5 mg DAILY PO Last administered on 01/07/19at 08:23; Start 01/03/19 at 09:00; Stop 01/08/19 at 11:50; Status DC Heparin Sodium (Porcine) (Heparin Sodium) 5,000 unit Q8HRS SQ ; Start 01/03/19 at 14:00 Lidocaine HCl (Buffered Lidocaine 1%) 3 ml STK-MED ONCE .ROUTE ; Start 01/04/19 at 08:55; Stop 01/04/19 at 08:56; Status DC Iodixanol (Visipaque 320) 50 ml STK-MED ONCE .ROUTE ; Start 01/04/19 at 08:56; Stop 01/04/19 at 08:56; Status DC Midazolam HCl (Versed) 2 mg STK-MED ONCE .ROUTE ; Start 01/04/19 at 09:15; Stop 01/04/19 at 09:16; Status DC Fentanyl Citrate (Fentanyl 2ml Vial) 100 mcg STK-MED ONCE .ROUTE ; Start 01/04/19 at 09:15; Stop 01/04/19 at 09:16; Status DC Cefazolin Sodium 100 ml @ As Directed STK-MED ONCE IV ; Start 01/04/19 at 09:24; Stop 01/04/19 at 09:25; Status DC Midazolam HCl (Versed) 2 mg STK-MED ONCE .ROUTE ; Start 01/04/19 at 09:36; Stop 01/04/19 at 09:36; Status DC Fentanyl Citrate (Fentanyl 2ml Vial) 100 mcg STK-MED ONCE .ROUTE ; Start 01/04/19 at 09:36; Stop 01/04/19 at 09:37; Status DC Lidocaine HCl (Buffered Lidocaine 1%) 3 ml 1X ONCE IJ Last administered on 01/04/19at 09:45; Start 01/04/19 at 09:45; Stop 01/04/19 at 09:48; Status DC Midazolam HCl (Versed) 2 mg 1X ONCE IV Last administered on 01/04/19at 09:45; Start 01/04/19 at 09:45; Stop 01/04/19 at 09:48; Status DC Fentanyl Citrate (Fentanyl 2ml Vial) 100 mcg 1X ONCE IV Last administered on 01/04/19at 09:45; Start 01/04/19 at 09:45; Stop 01/04/19 at 09:48; Status DC Cefazolin Sodium 50 ml @ 100 mls/hr 1X ONCE IV Last administered on 01/04/19at 09:45; Start 01/04/19 at 09:45; Stop 01/04/19 at 10:14; Status DC Iodixanol (Visipaque 320) 50 ml 1X ONCE IART Last administered on 01/04/19at 09:45; Start 01/04/19 at 09:45; Stop 01/04/19 at 09:48; Status DC Cefazolin Sodium 50 ml @ 100 mls/hr 1X ONCE IV Last administered on 01/04/19at 09:45; Start 01/04/19 at 09:45; Stop 01/04/19 at 10:14; Status DC Fentanyl Citrate (Fentanyl 2ml Vial) 100 mcg STK-MED ONCE .ROUTE ; Start 01/04/19 at 09:51; Stop 01/04/19 at 09:52; Status DC Fentanyl Citrate (Fentanyl 2ml Vial) 75 mcg Q1HR PRN IV PAIN Last administered on 01/05/19at 09:33; Start 01/04/19 at 13:15; Stop 01/05/19 at 09:45; Status DC Levofloxacin (Levaquin) 500 mg DAILY06 PO ; Start 01/05/19 at 06:00; Stop 01/12/19 at 14:00; Status UNV Amoxicillin (Amoxil) 500 mg [id number] PO Last administered on 01/04/19at 14:20; Start 01/04/19 at 14:00; Stop 01/04/19 at 15:50; Status DC Amoxicillin (Amoxil) 500 mg Q12HR PO Last administered on 01/06/19at 08:24; Start 01/04/19 at 21:00; Stop 01/06/19 at 12:50; Status DC Phenazopyridine HCl (Pyridium) 200 mg PRN TID PRN PO URINARY PAIN Last administered on 01/06/19 20:58; Start 01/05/19 at 09:30; Stop 01/08/19 at 11:50; Status DC Oxybutynin Chloride (Ditropan) 5 mg [id number] PO Last administered on 01/06/19 08:24; Start 01/05/19 at 14:00; Stop 01/06/19 at 12:50; Status DC Fentanyl Citrate (Fentanyl 2ml Vial) 75 mcg PRN Q2HR PRN IV PAIN Last administered on 01/09/19 08:42; Start 01/05/19 at 14:01 Methadone HCl (Dolophine) 20 mg TID PO Last administered on 01/07/19 08:23; Start 01/05/19 at 14:00; Stop 01/07/19 at 10:54; Status DC Fentanyl Citrate (Fentanyl 2ml Vial) 75 mcg PRN Q1HR PRN IV PAIN Last administered on 01/05/19at 11:57; Start 01/05/19 at 10:00; Stop 01/05/19 at 14:01; Status DC Magnesium Sulfate 50 ml @ 25 mls/hr 1X ONCE IV Last administered on 01/05/19 11:56; Start 01/05/19 at 12:00; Stop 01/05/19 at 13:59; Status DC Potassium Chloride (Klor-Con) 20 meq 1X ONCE PO Last administered on 01/05/19 14:47; Start 01/05/19 at 15:00; Stop 01/05/19 at 15:01; Status DC Prochlorperazine Edisylate (Compazine) 10 mg PRN Q6HRS PRN IV NAUSEA/VOMITING Last administered on 01/06/19 11:10; Start 01/06/19 at 11:00 Oxybutynin Chloride (Ditropan) 5 mg PRN TID PRN PO BLADDER SPASM Last ad ministered on 01/06/19at 20:58; Start 01/06/19 at 12:45 Ciprofloxacin (Cipro) 250 mg BID PO Last administered on 01/09/19 08:40; Start 01/06/19 at 21:00; Stop 01/11/19 at 21:00 Oxycodone HCl (Roxicodone) 10 mg PRN Q3HRS PRN PO MODERATE TO SEVERE PAIN Last administered on 01/08/19 18:09; Start 01/06/19 at 14:45 Methadone HCl (Dolophine) 10 mg TID PO Last administered on 01/09/19 08:40; Start 01/07/19 at 14:00 Potassium Chloride (Klor-Con) 40 meq 1X ONCE PO Last administered on 01/07/19at 11:04; Start 01/07/19 at 11:00; Stop 01/07/19 at 11:01; Status DC Potassium Chloride (Klor-Con) 20 meq BID PO Last administered on 01/09/19at 08:39; Start 01/07/19 at 21:00; Stop 01/10/19 at 20:59 Magnesium Sulfate/ Dextrose 100 ml @ 100 mls/hr 1X ONCE IV Last administered on 01/07/19at 12:55; Start 01/07/19 at 13:00; Stop 01/07/19 at 13:59; Status DC Magnesium Chloride (Mag Delay) 64 mg DAILY PO ; Start 01/07/19 at 13:00; Stop 01/07/19 at 12:46; Status DC Magnesium Chloride (Mag Delay) 64 mg DAILY PO ; Start 01/08/19 at 09:00 Sodium Chloride 500 ml @ 500 mls/hr 1X ONCE IV Last administered on 01/08/19at 09:30; Start 01/08/19 at 09:30; Stop 01/08/19 at 10:29; Status DC Sodium Chloride 500 ml @ 500 mls/hr PRN QID PRN IV UO< 30cc/hr over previous 6hrs; Start 01/08/19 at 14:00 Fentanyl Citrate (Fentanyl 2ml Vial) 75 mcg 1X ONCE IVP ; Start 01/08/19 at 18:30; Stop 01/08/19 at 18:31; Status DC Sodium Monofluorophosphate (Fleet Adult) 133 ml 1X ONCE GA ; Start 01/08/19 at 18:30; Stop 01/08/19 at 18:31; Status DC Magnesium Citrate (Citroma) 296 ml 1X ONCE PO Last administered on 01/09/19at 08:40; Start 01/09/19 at 09:00; Stop 01/09/19 at 09:01 Active Scripts Active Klor-Con M20 (Potassium Chloride) 20 Meq Tab.er.prt 20 Meq PO DAILY 30 Days Polyethylene Glycol 3350 17 Gm Powd.pack 17 Gm PO PRN DAILY PRN 30 Days Colace (Docusate Sodium) 100 Mg Capsule 100 Mg PO DAILY MDD 30 30 Days Reported Keytruda (Pembrolizumab) 100 Mg/4 Ml Vial Unknown Dose IV WEEKLY Methadone Hcl 5 Mg Tablet 1.5 Tab PO Q8HRS Oxycodone Hcl 5 Mg Capsule 1-3 Tab PO PRN Q3HRS PRN Lisinopril 20 Mg Tablet 10 Mg PO DAILY Gabapentin 600 Mg Tablet 600 Mg PO BID Prevacid (Lansoprazole) 30 Mg Capsule.dr 30 Mg PO DAILY Cyclobenzaprine Hcl 10 Mg Tablet 10 Mg PO PRN TID PRN Phenergan (Promethazine HCl) 12.5 Mg Supp.rect 12.5 Mg RC PRN Q12HR PRN Ambien (Zolpidem Tartrate) 5 Mg Tablet 1 Tab PO QHS PRN Vitals/I & O Vital Sign - Last 24 Hours 01/08/19 01/08/19 01/08/19 01/08/19 09:00 11:00 12:39 13:09 Temp 97.8 97.8 Pulse 95 78 Resp 16 B/P (MAP) 89/48 90/47 (61) Pulse Ox 92 O2 Delivery Room Air Room Air Room Air 01/08/19 01/08/19 01/08/19 01/08/19 14:11 14:22 14:44 15:00 Temp 97.4 97.8 97.4 97.8 Pulse 75 94 Resp 16 16 B/P (MAP) 99/50 95/50 (65) Pulse Ox 95 O2 Delivery Room Air Room Air Room Air 01/08/19 01/08/19 01/08/19 01/08/19 15:11 15:11 15:30 17:16 Temp 97.8 97.8 Pulse 91 Resp 16 B/P (MAP) 95/50 O2 Delivery Room Air Room Air Nasal Cannula 01/08/19 01/08/19 01/08/19 01/08/19 17:46 18:09 19:00 19:09 Temp 97.9 97.9 Pulse 88 Resp 18 B/P (MAP) 130/49 (76) Pulse Ox 93 95 O2 Delivery Room Air Nasal Cannula Room Air Nasal Cannula O2 Flow Rate 2.0 01/08/19 01/08/19 01/08/19 01/09/19 19:20 20:00 23:00 03:00 Temp 98.6 97.6 98.6 97.6 Pulse 92 118 Resp 18 18 B/P (MAP) 104/46 (65) 94/46 (62) Pulse Ox 97 90 O2 Delivery Nasal Cannula Room Air Room Air Room Air O2 Flow Rate 2.0 01/09/19 08:42 Pulse Ox 90 O2 Delivery Nasal Cannula O2 Flow Rate 2.0 Intake and Output 01/08/19 01/08/19 01/09/19 15:00 23:00 07:00 Intake Total 400 ml Output Total 650 ml Balance -650 ml 400 ml WINNIE VAZ MD Jan 09, 2019 08:57
[2019-01-09] MEDS ORDERED: MAGNESIUM CITRATE 296 ML SOLUTION. PO ONE (09:00)
[2019-01-09 10:11] LABS: % BANDS 8 % (0-9); % LYMPHS 2 % (24-48); % MONOS 1 % (0-10); % SEGS 89 % (35-66); PLT ESTIMATE ADEQUATE (ADEQUATE)
[2019-01-09 10:12] LABS: ANISOCYTOSIS SLIGHT
[2019-01-09 11:00] VITALS: BP 95/46
[2019-01-09] MEDS ORDERED: SODIUM PHOSPHATES 19/7GM 133 ML ENEMA. PR ONE (12:00)
--- NOTE | 2019-01-09 13:33 | PDOC ---
SUBJECTIVE ROS BRANDIN Pt was given the liberty to eat [employer] (which she asked for ) but she did not eat much due to anorexia. She is feeling better overall CVS: no Orthopnea, no CP RESP: no SOB, no CHAPMAN GI: + Nausea, + Vomiting : no Dysuria, no Urgency OBJECTIVE Vital Signs Vital Signs Date Time Temp Pulse Resp B/P (MAP) Pulse Ox O2 Delivery O2 Flow Rate FiO2 01/09/19 11:26 Room Air 01/09/19 11:00 98.2 93 18 95/46 (62) 93 2.0 98.2 I & 0 Intake and Output 01/09/19 06:59 Intake Total 400 ml Output Total 650 ml Balance -250 ml Intake Oral 400 ml Output Urine Total 650 ml # Voids 4 PHYSICAL EXAM Physical Exam GEN: Awake, Oriented x 3, In no distress EYES: Vision Unchanged, Conjunctiva Normal EN: No EN Drainage, Mucous Membranes moist NECK: no JVD, no JVP, Supple, no Thyromegaly CVS: S1S2, no Murmur, No Gallop, No Rub,no Edema RESP: no Rales, no Rhonchi,no Acc. Muscle Use GI: BS + ve, NO Bruit, Non Tender, Non Distended : no CVA tenderness, no Suprapubic Tenderness - Aniceto PCNs DIAGNOSIS/ASSESSMENT Assessment & Plan AK vs CKD III : Doubt that her NV are related to renal dysfunction but if no other etio (ie Chemo/ constipation) are found then may need to consider HD to r/o Uremia. Current fluid and E-lyte status does not necessitate emergent need for dialysis. Will re-evaluate for dialysis in the am Low K - better after liberalizing diet and reval. Partly associated with Low Mag in the past too which is now corrected ANemia - to get BT fo rhgb < 7. Hydronephrosis - now with PCNs in place Low BP - IVF as ordered. Pt has had significant -ve fluid balance over the last few days as noted. Dec Uo : IV NS fluid bolus prn Discussed Plan of Care with family/ friends at bedside COMMENT/RELEVANT DATA Meds Current Medications Medications (Trade) Dose Ordered Sig/Sanna Start Time Stop Time Status Last Admin Dose Admin Amoxicillin (Amoxil) 500 mg Q12HR 01/04/19 21:00 01/06/19 12:50 DC 01/06/19 08:24 500 MG Cefazolin Sodium 50 ml @ 100 mls/hr 1X ONCE 01/04/19 09:45 01/04/19 10:14 DC 01/04/19 09:45 100 MLS/HR Ceftriaxone Sodium (Rocephin) 1 gm 1X ONCE 12/29/18 16:30 12/29/18 16:31 DC 12/29/18 17:01 1 GM Ciprofloxacin (Cipro) 250 mg BID 01/06/19 21:00 01/11/19 21:00 01/09/19 08:40 250 MG Cyclobenzaprine HCl (Flexeril) 10 mg PRN TID PRN 12/30/18 09:00 Docusate Sodium (Colace) 100 mg DAILY 12/30/18 09:00 01/08/19 09:19 100 MG Doxycycline Hyclate 100 mg/ Dextrose 100 ml @ 50 mls/hr 1X ONCE 12/29/18 16:30 12/29/18 18:29 DC 12/29/18 17:02 50 MLS/HR Fentanyl Citrate (Fentanyl 2ml Vial) 75 mcg 1X ONCE 01/08/19 18:30 01/08/19 18:31 DC Furosemide (Lasix) 40 mg [id number] 01/01/19 11:00 01/08/19 09:09 DC 01/07/19 12:54 40 MG Gabapentin (Neurontin) 600 mg BID 12/30/18 09:00 01/09/19 08:39 600 MG Heparin Sodium (Porcine) (Heparin Sodium) 5,000 unit Q8HRS 01/03/19 14:00 Iodixanol (Visipaque 320) 50 ml 1X ONCE 01/04/19 09:45 01/04/19 09:48 DC 01/04/19 09:45 40 ML Levofloxacin (Levaquin) 500 mg DAILY06 01/05/19 06:00 01/12/19 14:00 UNV Lidocaine HCl (Buffered Lidocaine 1%) 3 ml 1X ONCE 01/04/19 09:45 01/04/19 09:48 DC 01/04/19 09:45 13 ML Lisinopril (Prinivil) 2.5 mg DAILY 01/03/19 09:00 01/08/19 11:50 DC 01/07/19 08:23 2.5 MG Magnesium Chloride (Mag Delay) 64 mg DAILY 01/08/19 09:00 Magnesium Citrate (Citroma) 296 ml 1X ONCE 01/09/19 09:00 01/09/19 09:01 DC 01/09/19 08:40 296 ML Magnesium Sulfate 50 ml @ 25 mls/hr 1X ONCE 01/05/19 12:00 01/05/19 13:59 DC 01/05/19 11:56 25 MLS/HR Magnesium Sulfate/ Dextrose 100 ml @ 100 mls/hr 1X ONCE 01/07/19 13:00 01/07/19 13:59 DC 01/07/19 12:55 100 MLS/HR Methadone HCl (Dolophine) 10 mg TID 01/07/19 14:00 01/09/19 08:40 10 MG Midazolam HCl (Versed) 2 mg 1X ONCE 01/04/19 09:45 01/04/19 09:48 DC 01/04/19 09:45 3 MG Oxybutynin Chloride (Ditropan) 5 mg PRN TID PRN 01/06/19 12:45 01/06/19 20:58 5 MG Oxycodone HCl (Roxicodone) 10 mg PRN Q3HRS PRN 01/06/19 14:45 01/08/19 18:09 10 MG Pantoprazole Sodium (Protonix) 40 mg DAILYAC 12/30/18 09:00 01/09/19 06:10 40 MG Pharmacy Consult (C.diff Med Screen By Rx) 1 each 1X ONCE 12/30/18 09:00 12/30/18 09:01 Cancel Phenazopyridine HCl (Pyridium) 200 mg PRN TID PRN 01/05/19 09:30 01/08/19 11:50 DC 01/06/19 20:58 200 MG Polyethylene Glycol (miraLAX PACKET) 17 gm PRN DAILY PRN 12/30/18 09:00 12/30/18 09:19 DC Potassium Chloride (Klor-Con) 20 meq BID 01/07/19 21:00 01/10/19 20:59 01/09/19 08:39 20 MEQ Prochlorperazine Edisylate (Compazine) 10 mg PRN Q6HRS PRN 01/06/19 11:00 01/06/19 11:10 10 MG Sodium Monofluorophosphate (Fleet Adult) 133 ml 1X ONCE 01/09/19 12:00 01/09/19 12:01 DC 01/09/19 13:06 133 ML Sodium Chloride 500 ml @ 500 mls/hr PRN QID PRN 01/08/19 14:00 Zolpidem Tartrate (Ambien) 5 mg QHS PRN 12/30/18 09:00 01/06/19 20:59 5 MG Lab Laboratory Tests Test 01/09/19 06:30 01/09/19 06:50 White Blood Count 9.6 x10^3/uL (4.0-11.0) Red Blood Count 2.95 x10^6/uL (3.50-5.40) Hemoglobin 7.9 g/dL (12.0-15.5) Hematocrit 23.7 % (36.0-47.0) Mean Corpuscular Volume 80 fL (79-100) Mean Corpuscular Hemoglobin 27 pg (25-35) Mean Corpuscular Hemoglobin Concent 34 g/dL (31-37) Red Cell Distribution Width 18.1 % (11.5-14.5) Platelet Count 241 x10^3/uL (140-400) Neutrophils (%) (Auto) 90 % (31-73) Lymphocytes (%) (Auto) 5 % (24-48) Monocytes (%) (Auto) 4 % (0-9) Eosinophils (%) (Auto) 1 % (0-3) Basophils (%) (Auto) 0 % (0-3) Neutrophils # (Auto) 8.6 x10^3/uL (1.8-7.7) Lymphocytes # (Auto) 0.5 x10^3/uL (1.0-4.8) Monocytes # (Auto) 0.4 x10^3/uL (0.0-1.1) Eosinophils # (Auto) 0.1 x10^3/uL (0.0-0.7) Basophils # (Auto) 0.0 x10^3/uL (0.0-0.2) Segmented Neutrophils % 89 % (35-66) Band Neutrophils % 8 % (0-9) Lymphocytes % 2 % (24-48) Monocytes % 1 % (0-10) Platelet Estimate Adequate (ADEQUATE) Large Platelets Occ Giant Platelets Present Anisocytosis Slight Sodium Level 133 mmol/L (136-145) Potassium Level 4.0 mmol/L (3.5-5.1) Chloride Level 96 mmol/L (98-107) Carbon Dioxide Level 28 mmol/L (21-32) Anion Gap 9 (6-14) Blood Urea Nitrogen 36 mg/dL (7-20) Creatinine 3.0 mg/dL (0.6-1.0) Estimated GFR (Cockcroft-Gault) 17.5 Glucose Level 107 mg/dL (70-99) Calcium Level 9.8 mg/dL (8.5-10.1) Magnesium Level 1.8 mg/dL (1.8-2.4) Results All relevant outside records, renal labs, imaging studies, telemetry/EKG's were reviewed. DIOMEDES WATERS MD Jan 09, 2019 13:33
[2019-01-09 15:00] VITALS: BP 83/37
[2019-01-09] MEDS: oxyCODONE IR 5 MG TABLET PO PRN (16:25)
[2019-01-09 19:00] VITALS: BP 110/50
[2019-01-09] MEDS ORDERED: IV NORMAL SALINE 250ML 250 ML IV ONE (21:00)
[2019-01-09] MEDS ORDERED: IV NORMAL SALINE 500ML BAG 250 ML IV ONE (21:00)
[2019-01-09] MEDS ORDERED: IV NORMAL SALINE 500ML BAG 500 ML IV ONE (21:00)
[2019-01-09 23:00] VITALS: BP 111/43
[2019-01-09] MEDS: ZOLPIDEM 5 MG TABLET. PO PRN (23:29)
[2019-01-10 03:00] VITALS: BP 100/51
[2019-01-10] MEDS: HEPARIN for SUB-Q USE 5,000 UNIT/ML VIAL. SQ SCH ×3 (03:18→21:26)
[2019-01-10] MEDS: fentaNYL PF VIAL 100 MCG/2 ML VIAL IV PRN ×3 (06:45→15:29)
[2019-01-10] MEDS: PANTOPRAZOLE 40 MG TABLET.DR. PO SCH (06:45)
[2019-01-10 07:00] VITALS: BP 101/47
[2019-01-10 07:23] LABS: CALCIUM 9.6 mg/dL (8.5-10.1); CREATININE 2.4 mg/dL (0.6-1.0); GFR 22.6; POTASSIUM 4.1 mmol/L (3.5-5.1)
--- NOTE | 2019-01-10 08:28 | PDOC ---
PROGRESS NOTES Subjective Subjective Patient sleepy from IV Fentanyl. Does report BM yesterday after Mag Citrate and enema. Objective Objective Vital Signs Date Time Temp Pulse Resp B/P (MAP) Pulse Ox O2 Delivery O2 Flow Rate FiO2 01/10/19 03:00 98.4 103 18 100/51 (67) 91 Nasal Cannula 2.0 98.4 Intake and Output 01/10/19 06:59 Intake Total 1660 ml Output Total 3100 ml Balance -1440 ml Intake Oral 1660 ml Output Urine Total 2300 ml Drainage Total 800 ml Physical Exam Abdomen: Normal bowel sounds, Soft, No tenderness Heart: Regular rate Extremities: Other (mild chronic lymphedema bilateral LE's) General: No acute distress Lungs: Other (crackles R base and BS moderately decreased L base, otherwise CTA) Plan Plan of Care 1. Acute renal failure with hydronephrosis and CKD - lab improved. Continue to encourage po fluids, patient denied further IVF due to generalized edema. 2. UTI - continue Cipro. 3. metastatic cervical cancer - slowly advancing. Patient advised to taper down her frequent IV Fentanyl in preparation for possible discharge tomorrow. Continue po pain meds. 4. malignant pleural effusion with hypoxia - some improvement after thoracentesis - 6 minute walk ordered, home with O2 if indicated. Patient does have CHAPMAN but less hypoxia at rest. 5. constipation - improved after tx yesterday. Advised Miralax daily (not prn) and Colace BID, orders changed. 6. hypotension - resolved, patient's BP low-normal now. Comment Review of Relevant I have reviewed the following items heather (where applicable) has been applied. Labs Laboratory Tests Test 01/09/19 06:30 01/09/19 06:50 01/10/19 06:30 White Blood Count 9.6 x10^3/uL (4.0-11.0) Red Blood Count 2.95 x10^6/uL (3.50-5.40) Hemoglobin 7.9 g/dL (12.0-15.5) Hematocrit 23.7 % (36.0-47.0) Mean Corpuscular Volume 80 fL (79-100) Mean Corpuscular Hemoglobin 27 pg (25-35) Mean Corpuscular Hemoglobin Concent 34 g/dL (31-37) Red Cell Distribution Width 18.1 % (11.5-14.5) Platelet Count 241 x10^3/uL (140-400) Neutrophils (%) (Auto) 90 % (31-73) Lymphocytes (%) (Auto) 5 % (24-48) Monocytes (%) (Auto) 4 % (0-9) Eosinophils (%) (Auto) 1 % (0-3) Basophils (%) (Auto) 0 % (0-3) Neutrophils # (Auto) 8.6 x10^3/uL (1.8-7.7) Lymphocytes # (Auto) 0.5 x10^3/uL (1.0-4.8) Monocytes # (Auto) 0.4 x10^3/uL (0.0-1.1) Eosinophils # (Auto) 0.1 x10^3/uL (0.0-0.7) Basophils # (Auto) 0.0 x10^3/uL (0.0-0.2) Segmented Neutrophils % 89 % (35-66) Band Neutrophils % 8 % (0-9) Lymphocytes % 2 % (24-48) Monocytes % 1 % (0-10) Platelet Estimate Adequate (ADEQUATE) Large Platelets Occ Giant Platelets Present Anisocytosis Slight Sodium Level 133 mmol/L (136-145) 136 mmol/L (136-145) Potassium Level 4.0 mmol/L (3.5-5.1) 4.1 mmol/L (3.5-5.1) Chloride Level 96 mmol/L (98-107) 103 mmol/L (98-107) Carbon Dioxide Level 28 mmol/L (21-32) 28 mmol/L (21-32) Anion Gap 9 (6-14) 5 (6-14) Blood Urea Nitrogen 36 mg/dL (7-20) 32 mg/dL (7-20) Creatinine 3.0 mg/dL (0.6-1.0) 2.4 mg/dL (0.6-1.0) Estimated GFR (Cockcroft-Gault) 17.5 22.6 Glucose Level 107 mg/dL (70-99) 97 mg/dL (70-99) Calcium Level 9.8 mg/dL (8.5-10.1) 9.6 mg/dL (8.5-10.1) Magnesium Level 1.8 mg/dL (1.8-2.4) Laboratory Tests Test 01/10/19 06:30 Sodium Level 136 mmol/L (136-145) Potassium Level 4.1 mmol/L (3.5-5.1) Chloride Level 103 mmol/L (98-107) Carbon Dioxide Level 28 mmol/L (21-32) Anion Gap 5 (6-14) Blood Urea Nitrogen 32 mg/dL (7-20) Creatinine 2.4 mg/dL (0.6-1.0) Estimated GFR (Cockcroft-Gault) 22.6 Glucose Level 97 mg/dL (70-99) Calcium Level 9.6 mg/dL (8.5-10.1) Microbiology 12/29/18 Blood Culture - Final, Complete NO GROWTH AFTER 5 DAYS 12/29/18 Urine Culture - Final, Complete 12/29/18 Urine Culture Result 1 (FUNMI) - Final, Complete 12/29/18 Antimicrobic Susceptibility - Final, Complete Medications Current Medications Sodium Chloride 1,000 ml @ 1,000 mls/hr 1X ONCE IV Last administered on 12/29/18at 14:27; Start 12/29/18 at 14:15; Stop 12/29/18 at 15:14; Status DC Fentanyl Citrate (Fentanyl 2ml Vial) 50 mcg 1X ONCE IV Last administered on 12/29/18at 14:31; Start 12/29/18 at 14:15; Stop 12/29/18 at 14:16; Status DC Fentanyl Citrate (Fentanyl 2ml Vial) 75 mcg 1X ONCE IV Last administered on 12/29/18at 15:09; Start 12/29/18 at 15:15; Stop 12/29/18 at 15:16; Status DC Fentanyl Citrate (Fentanyl 2ml Vial) 75 mcg 1X ONCE IV Last administered on 12/29/18at 15:42; Start 12/29/18 at 15:45; Stop 12/29/18 at 15:46; Status DC Ceftriaxone Sodium (Rocephin) 1 gm 1X ONCE IVP Last administered on 12/29/18at 17:01; Start 12/29/18 at 16:30; Stop 12/29/18 at 16:31; Status DC Doxycycline Hyclate 100 mg/ Dextrose 100 ml @ 50 mls/hr 1X ONCE IV Last administered on 12/29/18at 17:02; Start 12/29/18 at 16:30; Stop 12/29/18 at 18:29; Status DC Fentanyl Citrate (Fentanyl 2ml Vial) 50 mcg PRN Q1HR PRN IV PAIN Last administered on 12/29/18at 16:53; Start 12/29/18 at 16:45; Stop 12/29/18 at 18:55; Status DC Sodium Chloride 1,000 ml @ 100 mls/hr Q10H IV Last administered on 12/30/18at 12:31; Start 12/29/18 at 16:31; Stop 12/30/18 at 16:30; Status DC Fentanyl Citrate (Fentanyl 2ml Vial) 75 mcg Q2HR PRN IV PAIN Last administered on 01/04/19at 12:10; Start 12/29/18 at 19:00; Stop 01/04/19 at 13:09; Status DC Methadone HCl (Dolophine) 7.5 mg Q8HRS PO ; Start 12/29/18 at 22:00; Status UNV Methadone HCl (Dolophine) 7.5 mg Q8HRS PO Last administered on 01/05/19at 06:29; Start 12/29/18 at 22:00; Stop 01/05/19 at 09:43; Status DC Docusate Sodium (Colace) 100 mg BID PRN PO HARD STOOLS Last administered on 01/07/19at 23:34; Start 12/29/18 at 19:15 Polyethylene Glycol (miraLAX PACKET) 17 gm PRN DAILY PRN PO CONSTIPATION Last administered on 01/08/19at 17:21; Start 12/29/18 at 19:15 Pharmacy Consult (C.diff Med Screen By Rx) 1 each 1X ONCE MC ; Start 12/30/18 at 09:00; Stop 12/30/18 at 09:01; Status Cancel Cyclobenzaprine HCl (Flexeril) 10 mg PRN TID PRN PO back pain; Start 12/30/18 at 09:00 Docusate Sodium (Colace) 100 mg DAILY PO Last administered on 01/08/19at 09:19; Start 12/30/18 at 09:00 Lisinopril (Prinivil) 10 mg DAILY PO ; Start 12/30/18 at 09:00; Stop 12/31/18 at 08:39; Status DC Polyethylene Glycol (miraLAX PACKET) 17 gm PRN DAILY PRN PO CONSTIPATION; Start 12/30/18 at 09:00; Stop 12/30/18 at 09:19; Status DC Zolpidem Tartrate (Ambien) 5 mg QHS PRN PO INSOMNIA Last administered on 01/09/19at 23:29; Start 12/30/18 at 09:00 Gabapentin (Neurontin) 600 mg BID PO Last administered on 01/09/19at 20:17; Start 12/30/18 at 09:00 Pantoprazole Sodium (Protonix) 40 mg DAILYAC PO Last administered on 01/10/19at 06:45; Start 12/30/18 at 09:00 Furosemide (Lasix) 40 mg [id number] PO Last administered on 01/07/19at 12:54; Start 01/01/19 at 11:00; Stop 01/08/19 at 09:09; Status DC Lisinopril (Prinivil) 2.5 mg DAILY PO Last administered on 01/07/19at 08:23; Start 01/03/19 at 09:00; Stop 01/08/19 at 11:50; Status DC Heparin Sodium (Porcine) (Heparin Sodium) 5,000 unit Q8HRS SQ ; Start 01/03/19 at 14:00 Lidocaine HCl (Buffered Lidocaine 1%) 3 ml STK-MED ONCE .ROUTE ; Start 01/04/19 at 08:55; Stop 01/04/19 at 08:56; Status DC Iodixanol (Visipaque 320) 50 ml STK-MED ONCE .ROUTE ; Start 01/04/19 at 08:56; Stop 01/04/19 at 08:56; Status DC Midazolam HCl (Versed) 2 mg STK-MED ONCE .ROUTE ; Start 01/04/19 at 09:15; Stop 01/04/19 at 09:16; Status DC Fentanyl Citrate (Fentanyl 2ml Vial) 100 mcg STK-MED ONCE .ROUTE ; Start 01/04/19 at 09:15; Stop 01/04/19 at 09:16; Status DC Cefazolin Sodium 100 ml @ As Directed STK-MED ONCE IV ; Start 01/04/19 at 09:24; Stop 01/04/19 at 09:25; Status DC Midazolam HCl (Versed) 2 mg STK-MED ONCE .ROUTE ; Start 01/04/19 at 09:36; Stop 01/04/19 at 09:36; Status DC Fentanyl Citrate (Fentanyl 2ml Vial) 100 mcg STK-MED ONCE .ROUTE ; Start 01/04/19 at 09:36; Stop 01/04/19 at 09:37; Status DC Lidocaine HCl (Buffered Lidocaine 1%) 3 ml 1X ONCE IJ Last administered on 01/04/19at 09:45; Start 01/04/19 at 09:45; Stop 01/04/19 at 09:48; Status DC Midazolam HCl (Versed) 2 mg 1X ONCE IV Last administered on 01/04/19at 09:45; Start 01/04/19 at 09:45; Stop 01/04/19 at 09:48; Status DC Fentanyl Citrate (Fentanyl 2ml Vial) 100 mcg 1X ONCE IV Last administered on 01/04/19at 09:45; Start 01/04/19 at 09:45; Stop 01/04/19 at 09:48; Status DC Cefazolin Sodium 50 ml @ 100 mls/hr 1X ONCE IV Last administered on 01/04/19at 09:45; Start 01/04/19 at 09:45; Stop 01/04/19 at 10:14; Status DC Iodixanol (Visipaque 320) 50 ml 1X ONCE IART Last administered on 01/04/19 09:45; Start 01/04/19 at 09:45; Stop 01/04/19 at 09:48; Status DC Cefazolin Sodium 50 ml @ 100 mls/hr 1X ONCE IV Last administered on 01/04/19at 09:45; Start 01/04/19 at 09:45; Stop 01/04/19 at 10:14; Status DC Fentanyl Citrate (Fentanyl 2ml Vial) 100 mcg STK-MED ONCE .ROUTE ; Start 01/04/19 at 09:51; Stop 01/04/19 at 09:52; Status DC Fentanyl Citrate (Fentanyl 2ml Vial) 75 mcg Q1HR PRN IV PAIN Last administered on 01/05/19at 09:33; Start 01/04/19 at 13:15; Stop 01/05/19 at 09:45; Status DC Levofloxacin (Levaquin) 500 mg DAILY06 PO ; Start 01/05/19 at 06:00; Stop 01/12/19 at 14:00; Status UNV Amoxicillin (Amoxil) 500 mg [id number] PO Last administered on 01/04/19 14:20; Start 01/04/19 at 14:00; Stop 01/04/19 at 15:50; Status DC Amoxicillin (Amoxil) 500 mg Q12HR PO Last administered on 01/06/19 08:24; Start 01/04/19 at 21:00; Stop 01/06/19 at 12:50; Status DC Phenazopyridine HCl (Pyridium) 200 mg PRN TID PRN PO URINARY PAIN Last administered on 01/06/19 20:58; Start 01/05/19 at 09:30; Stop 01/08/19 at 11:50; Status DC Oxybutynin Chloride (Ditropan) 5 mg [id number] PO Last administered on 01/06/19 08:24; Start 01/05/19 at 14:00; Stop 01/06/19 at 12:50; Status DC Fentanyl Citrate (Fentanyl 2ml Vial) 75 mcg PRN Q2HR PRN IV PAIN Last administered on 01/10/19 06:45; Start 01/05/19 at 14:01 Methadone HCl (Dolophine) 20 mg TID PO Last administered on 01/07/19 08:23; Start 01/05/19 at 14:00; Stop 01/07/19 at 10:54; Status DC Fentanyl Citrate (Fentanyl 2ml Vial) 75 mcg PRN Q1HR PRN IV PAIN Last admi nistered on 01/05/19 11:57; Start 01/05/19 at 10:00; Stop 01/05/19 at 14:01; Status DC Magnesium Sulfate 50 ml @ 25 mls/hr 1X ONCE IV Last administered on 01/05/19 11:56; Start 01/05/19 at 12:00; Stop 01/05/19 at 13:59; Status DC Potassium Chloride (Klor-Con) 20 meq 1X ONCE PO Last administered on 01/05/19 14:47; Start 01/05/19 at 15:00; Stop 01/05/19 at 15:01; Status DC Prochlorperazine Edisylate (Compazine) 10 mg PRN Q6HRS PRN IV NAUSEA/VOMITING Last administered on 01/06/19 11:10; Start 01/06/19 at 11:00 Oxybutynin Chloride (Ditropan) 5 mg PRN TID PRN PO BLADDER SPASM Last administered on 01/06/19at 20:58; Start 01/06/19 at 12:45 Ciprofloxacin (Cipro) 250 mg BID PO Last administered on 01/09/19at 20:17; Start 01/06/19 at 21:00; Stop 01/11/19 at 21:00 Oxycodone HCl (Roxicodone) 10 mg PRN Q3HRS PRN PO MODERATE TO SEVERE PAIN Last administered on 01/09/19at 16:25; Start 01/06/19 at 14:45 Methadone HCl (Dolophine) 10 mg TID PO Last administered on 01/09/19at 20:17; Start 01/07/19 at 14:00 Potassium Chloride (Klor-Con) 40 meq 1X ONCE PO Last administered on 01/07/19at 11:04; Start 01/07/19 at 11:00; Stop 01/07/19 at 11:01; Status DC Potassium Chloride (Klor-Con) 20 meq BID PO Last administered on 01/09/19at 20:17; Start 01/07/19 at 21:00; Stop 01/10/19 at 20:59 Magnesium Sulfate/ Dextrose 100 ml @ 100 mls/hr 1X ONCE IV Last administered on 01/07/19at 12:55; Start 01/07/19 at 13:00; Stop 01/07/19 at 13:59; Status DC Magnesium Chloride (Mag Delay) 64 mg DAILY PO ; Start 01/07/19 at 13:00; Stop 01/07/19 at 12:46; Status DC Magnesium Chloride (Mag Delay) 64 mg DAILY PO ; Start 01/08/19 at 09:00 Sodium Chloride 500 ml @ 500 mls/hr 1X ONCE IV Last administered on 01/08/19at 09:30; Start 01/08/19 at 09:30; Stop 01/08/19 at 10:29; Status DC Sodium Chloride 500 ml @ 500 mls/hr PRN QID PRN IV UO< 30cc/hr over previous 6hrs; Start 01/08/19 at 14:00 Fentanyl Citrate (Fentanyl 2ml Vial) 75 mcg 1X ONCE IVP ; Start 01/08/19 at 18:30; Stop 01/08/19 at 18:31; Status DC Sodium Monofluorophosphate (Fleet Adult) 133 ml 1X ONCE DC ; Start 01/08/19 at 18:30; Stop 01/08/19 at 18:31; Status DC Magnesium Citrate (Citroma) 296 ml 1X ONCE PO Last administered on 01/09/19at 08:40; Start 01/09/19 at 09:00; Stop 01/09/19 at 09:01; Status DC Sodium Monofluorophosphate (Fleet Adult) 133 ml 1X ONCE DC Last administered on 01/09/19at 13:06; Start 01/09/19 at 12:00; Stop 01/09/19 at 12:01; Status DC Sodium Chloride 250 ml @ 250 mls/hr 1X ONCE IV ; Start 01/09/19 at 21:00; Stop 01/09/19 at 21:59; Status Cancel Sodium Chloride 500 ml @ 500 mls/hr 1X ONCE IV ; Start 01/09/19 at 21:00; Stop 01/09/19 at 21:59; Status DC Sodium Chloride 250 ml @ 250 mls/hr 1X ONCE IV ; Start 01/09/19 at 21:00; Stop 01/09/19 at 21:59; Status DC Active Scripts Active Klor-Con M20 (Potassium Chloride) 20 Meq Tab.er.prt 20 Meq PO DAILY 30 Days Polyethylene Glycol 3350 17 Gm Powd.pack 17 Gm PO PRN DAILY PRN 30 Days Colace (Docusate Sodium) 100 Mg Capsule 100 Mg PO DAILY MDD 30 30 Days Reported Keytruda (Pembrolizumab) 100 Mg/4 Ml Vial Unknown Dose IV WEEKLY Methadone Hcl 5 Mg Tablet 1.5 Tab PO Q8HRS Oxycodone Hcl 5 Mg Capsule 1-3 Tab PO PRN Q3HRS PRN Lisinopril 20 Mg Tablet 10 Mg PO DAILY Gabapentin 600 Mg Tablet 600 Mg PO BID Prevacid (Lansoprazole) 30 Mg Capsule.dr 30 Mg PO DAILY Cyclobenzaprine Hcl 10 Mg Tablet 10 Mg PO PRN TID PRN Phenergan (Promethazine HCl) 12.5 Mg Supp.rect 12.5 Mg RC PRN Q12HR PRN Ambien (Zolpidem Tartrate) 5 Mg Tablet 1 Tab PO QHS PRN Vitals/I & O Vital Sign - Last 24 Hours 01/09/19 01/09/19 01/09/19 01/09/19 08:42 09:12 10:56 11:00 Temp 98.2 98.2 Pulse 93 Resp 18 B/P (MAP) 95/46 (62) Pulse Ox 90 93 O2 Delivery Nasal Cannula Room Air Room Air Nasal Cannula O2 Flow Rate 2.0 2.0 01/09/19 01/09/19 01/09/19 01/09/19 11:26 14:15 14:45 15:00 Temp 98.2 98.2 Pulse 96 Resp 18 B/P (MAP) 83/37 (52) Pulse Ox 94 O2 Delivery Room Air Room Air Room Air Room Air 01/09/19 01/09/19 01/09/19 01/09/19 16:25 17:25 18:00 19:00 Temp 99.0 99.0 Pulse 103 Resp 18 B/P (MAP) 110/50 (70) Pulse Ox 90 O2 Delivery Nasal Cannula Nasal Cannula Room Air Nasal Cannula O2 Flow Rate 2.0 2.0 01/09/19 01/09/19 01/09/19 01/10/19 19:29 20:00 23:00 03:00 Temp 98.1 98.4 98.1 98.4 Pulse 101 103 Resp 18 18 B/P (MAP) 111/43 (65) 100/51 (67) Pulse Ox 95 91 O2 Delivery Room Air Room Air Nasal Cannula Nasal Cannula O2 Flow Rate 2.0 2.0 Intake and Output 01/09/19 01/09/19 01/10/19 14:59 22:59 06:59 Intake Total 660 ml 1000 ml Output Total 1950 ml 1150 ml Balance 660 ml -1950 ml -150 ml ALYSSA MARTELL MD Jan 10, 2019 08:28
[2019-01-10] MEDS: MAGNESIUM CHLORIDE ER 64 MG TABLET.ER PO SCH (09:00)
[2019-01-10] MEDS: CIPROFLOXACIN HCL 250 MG TABLET. PO SCH ×2 (09:27→21:25)
[2019-01-10] MEDS: DOCUSATE SODIUM 100 MG CAPSULE. PO SCH ×2 (09:28→21:25)
[2019-01-10] MEDS: METHADONE 10 MG TABLET. PO SCH ×3 (09:28→21:25)
[2019-01-10] MEDS: POLYETHYLENE GLYCOL 3350 17 GM PACKET. PO SCH (09:28)
[2019-01-10] MEDS: POTASSIUM CHLORIDE 20 MEQ TABLET.ER. PO SCH (09:28)
--- NOTE | 2019-01-10 09:46 | PDOC ---
SUBJECTIVE Subjective S: on O2, pain ok w/ prn's O: Gen: in bed, resting, NAD, on O2 Psych: pleasant mood and sad affect Labs: UA cx w/ bacteria low Mag and K Hb 7.9, Cr 2.4 Rads: layering L eff w/ atx V/Q scan low prob Assessment and Plan: Marivel is a 38-year-old female with metastatic cervical cancer, recently on pembrolizumab palliatively prior to admit, with clinically progressive disease and renal failure, and slight hypoxia on O2 intermittently, s/p thoracentesis 12/31 w/ 900 cc fluid w/drawn (malignant) and percutaneous nephrostomy tubes placed 01/04 UTI: tx'd per primary Renal failure: Appreciate urology input, has nephrostomy tubes that may be internalized after 2 wks or so Pleural effusion with atx: + cytology, retap prn, check CXR today, needing O2 chest pain/dyspnea: V/Q scan low prob, on hep ppx w/ elev Cr, on O2 prn, getting pall RT x 12 doses starting Dec, apprec Rad/onc assistance Lower extremity edema: Left greater than right, chronic, ultrasounds have been negative for clot recently, can use compression stockings as needed, was to get outpatient stress test after last admit Low potassium and magnesium: per primary Metastatic cervical cancer: Clinically progressive disease, no clinical trial available at , (potential vaccine trial, she would have to travel likely [id number], renal function likely would preclude) could consider next line gemcitabine days 1 and 8 and 15 q 28 versus palliative care. We will continue her methadone only 10 mg 3 times a day w/ prn's and bowel meds prn Prophylaxis: heparin prophylaxis Recent rectal bleeding: was pending colonoscopy as outpatient Disposition: tomorrow maybe after home O2 set up? appreciate multidisciplinary care Thank you kindly, and please don't hesitate to call with any further questions. OBJECTIVE Vital Signs Vital Signs Date Time Temp Pulse Resp B/P (MAP) Pulse Ox O2 Delivery O2 Flow Rate FiO2 01/10/19 07:15 91 Room Air 2.0 01/10/19 03:00 98.4 103 18 100/51 (67) 91 Nasal Cannula 2.0 98.4 01/09/19 23:00 98.1 101 18 111/43 (65) 95 Nasal Cannula 2.0 98.1 10/13/19 20:00 Room Air 01/09/19 19:29 Room Air 01/09/19 19:00 99.0 103 18 110/50 (70) 90 Nasal Cannula 2.0 99.0 01/09/19 18:00 Room Air 01/09/19 17:25 Nasal Cannula 01/09/19 16:25 Nasal Cannula 2.0 01/09/19 15:00 98.2 96 18 83/37 (52) 94 Room Air 98.2 01/09/19 14:45 Room Air 01/09/19 14:15 Room Air 01/09/19 11:26 Room Air 01/09/19 11:00 98.2 93 18 95/46 (62) 93 Nasal Cannula 2.0 98.2 01/09/19 10:56 Room Air I & O Intake and Output 01/10/19 06:59 Intake Total 1660 ml Output Total 3100 ml Balance -1440 ml Intake Oral 1660 ml Output Urine Total 2300 ml Drainage Total 800 ml COMMENT Lab Laboratory Tests Test 01/10/19 06:30 Sodium Level 136 mmol/L (136-145) Potassium Level 4.1 mmol/L (3.5-5.1) Chloride Level 103 mmol/L (98-107) Carbon Dioxide Level 28 mmol/L (21-32) Anion Gap 5 (6-14) Blood Urea Nitrogen 32 mg/dL (7-20) Creatinine 2.4 mg/dL (0.6-1.0) Estimated GFR (Cockcroft-Gault) 22.6 Glucose Level 97 mg/dL (70-99) Calcium Level 9.6 mg/dL (8.5-10.1) POWER MEHTA MD Jan 10, 2019 09:46
--- NOTE | 2019-01-10 10:24 | PDOC ---
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 She had bilateral percutaneous nephrostomy tubes placed 01/04/19. On 01/08/19 had fatigue, hypotension, and nausea. [place] to be due to anemia and hypovolemia. IVF increased and PRBCs transfused. On 01/09/19 she was struggling with constipation managed with mag citrate and increased activity. Today, Ms. Bernal presented for her third of 12 planned radiation treatments, but was unable to lay flat due to epigastric/abdominal discomfort when lying supine. States she is slightly more SOB. Denies pain at perc neph sites. Still some discomfort in neck at site of metastatic adenopathy. Objective O2 sat 91% on 2LNC. Tachycardic to 103. BP 100/51 Cr has decreased from peak of 3.2 on 01/08/19 to 2.4 today, 01/10/19 01/10/19: K = 4.1, Na 136 Cr 2.4 01/09/19: Hb 7.9 WBC 9600 Plat 241k Seated in WC. Appears mildly uncomfortable. Abdomen not visibly distended. Appears to be breathing well on room air. 1+ LE edema. A/P Abdominal discomfort and inability to lay supine of uncertain etiology. CXR planned to rule out recurrent pleural effusion +/- volume overload. Will resume radiation to metastatic neck/mediastinal adenopathy later today if pain with lying supine resolves quickly. Otherwise will resume third of 12 planned radiation treatments tomorrow. -Denys Estes III, MD Radiation Oncology Covering for DENYS Bonilla III, MD Jan 10, 2019 10:24
--- NOTE | 2019-01-10 10:28 | PN ---
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 She had bilateral percutaneous nephrostomy tubes placed 01/04/19. On 01/08/19 had fatigue, hypotension, and nausea. [place] to be due to anemia and hypovolemia. IVF increased and PRBCs transfused. On 01/09/19 she was struggling with constipation managed with mag citrate and increased activity. Today, Ms. Bernal presented for her third of 12 planned radiation treatments, but was unable to lay flat due to epigastric/abdominal discomfort when lying supine. States she is slightly more SOB. Denies pain at perc neph sites. Still some discomfort in neck at site of metastatic adenopathy. Objective Objective Vital Signs Date Time Temp Pulse Resp B/P (MAP) Pulse Ox O2 Delivery O2 Flow Rate FiO2 01/10/19 07:15 91 Room Air 2.0 01/10/19 07:00 98.3 103 18 101/47 (65) 98.3 Intake and Output 01/10/19 06:59 Intake Total 1660 ml Output Total 3100 ml Balance -1440 ml Intake Oral 1660 ml Output Urine Total 2300 ml Drainage Total 800 ml O2 sat 91% on 2LNC. Tachycardic to 103. BP 100/51 Cr has decreased from peak of 3.2 on 01/08/19 to 2.4 today, 01/10/19 01/10/19: K = 4.1, Na 136 Cr 2.4 01/09/19: Hb 7.9 WBC 9600 Plat 241k Physical Exam Physical Exam Seated in WC. Appears mildly uncomfortable. Abdomen not visibly distended. Appears to be breathing well on room air. 1+ LE edema. Diagnosis DIAGNOSIS Metastatic cervical cancer PROBLEM LIST Cervical cancer Abdominal pain Shortness of breath Assessment Assessment Abdominal discomfort and inability to lay supine of uncertain etiology. CXR planned to rule out recurrent pleural effusion +/- volume overload. Plan Plan of Care Will resume radiation to metastatic neck/mediastinal adenopathy later today if pain with lying supine resolves quickly. Otherwise will resume third of 12 planned radiation treatments tomorrow. -Denys Estes III, MD Radiation Oncology Covering for Dr. Everette Samuel Comment Labs Laboratory Tests Test 01/09/19 06:30 01/09/19 06:50 01/10/19 06:30 White Blood Count 9.6 x10^3/uL (4.0-11.0) Red Blood Count 2.95 x10^6/uL (3.50-5.40) Hemoglobin 7.9 g/dL (12.0-15.5) Hematocrit 23.7 % (36.0-47.0) Mean Corpuscular Volume 80 fL (79-100) Mean Corpuscular Hemoglobin 27 pg (25-35) Mean Corpuscular Hemoglobin Concent 34 g/dL (31-37) Red Cell Distribution Width 18.1 % (11.5-14.5) Platelet Count 241 x10^3/uL (140-400) Neutrophils (%) (Auto) 90 % (31-73) Lymphocytes (%) (Auto) 5 % (24-48) Monocytes (%) (Auto) 4 % (0-9) Eosinophils (%) (Auto) 1 % (0-3) Basophils (%) (Auto) 0 % (0-3) Neutrophils # (Auto) 8.6 x10^3/uL (1.8-7.7) Lymphocytes # (Auto) 0.5 x10^3/uL (1.0-4.8) Monocytes # (Auto) 0.4 x10^3/uL (0.0-1.1) Eosinophils # (Auto) 0.1 x10^3/uL (0.0-0.7) Basophils # (Auto) 0.0 x10^3/uL (0.0-0.2) Segmented Neutrophils % 89 % (35-66) Band Neutrophils % 8 % (0-9) Lymphocytes % 2 % (24-48) Monocytes % 1 % (0-10) Platelet Estimate Adequate (ADEQUATE) Large Platelets Occ Giant Platelets Present Anisocytosis Slight Sodium Level 133 mmol/L (136-145) 136 mmol/L (136-145) Potassium Level 4.0 mmol/L (3.5-5.1) 4.1 mmol/L (3.5-5.1) Chloride Level 96 mmol/L (98-107) 103 mmol/L (98-107) Carbon Dioxide Level 28 mmol/L (21-32) 28 mmol/L (21-32) Anion Gap 9 (6-14) 5 (6-14) Blood Urea Nitrogen 36 mg/dL (7-20) 32 mg/dL (7-20) Creatinine 3.0 mg/dL (0.6-1.0) 2.4 mg/dL (0.6-1.0) Estimated GFR (Cockcroft-Gault) 17.5 22.6 Glucose Level 107 mg/dL (70-99) 97 mg/dL (70-99) Calcium Level 9.8 mg/dL (8.5-10.1) 9.6 mg/dL (8.5-10.1) Magnesium Level 1.8 mg/dL (1.8-2.4) Laboratory Tests Test 01/10/19 06:30 Sodium Level 136 mmol/L (136-145) Potassium Level 4.1 mmol/L (3.5-5.1) Chloride Level 103 mmol/L (98-107) Carbon Dioxide Level 28 mmol/L (21-32) Anion Gap 5 (6-14) Blood Urea Nitrogen 32 mg/dL (7-20) Creatinine 2.4 mg/dL (0.6-1.0) Estimated GFR (Cockcroft-Gault) 22.6 Glucose Level 97 mg/dL (70-99) Calcium Level 9.6 mg/dL (8.5-10.1) Microbiology 12/29/18 Blood Culture - Final, Complete NO GROWTH AFTER 5 DAYS 12/29/18 Urine Culture - Final, Complete 12/29/18 Urine Culture Result 1 (FUNMI) - Final, Complete 12/29/18 Antimicrobic Susceptibility - Final, Complete Medications Current Medications Sodium Chloride 1,000 ml @ 1,000 mls/hr 1X ONCE IV Last administered on 12/29/18at 14:27; Start 12/29/18 at 14:15; Stop 12/29/18 at 15:14; Status DC Fentanyl Citrate (Fentanyl 2ml Vial) 50 mcg 1X ONCE IV Last administered on 12/29/18at 14:31; Start 12/29/18 at 14:15; Stop 12/29/18 at 14:16; Status DC Fentanyl Citrate (Fentanyl 2ml Vial) 75 mcg 1X ONCE IV Last administered on 12/29/18at 15:09; Start 12/29/18 at 15:15; Stop 12/29/18 at 15:16; Status DC Fentanyl Citrate (Fentanyl 2ml Vial) 75 mcg 1X ONCE IV Last administered on 12/29/18at 15:42; Start 12/29/18 at 15:45; Stop 12/29/18 at 15:46; Status DC Ceftriaxone Sodium (Rocephin) 1 gm 1X ONCE IVP Last administered on 12/29/18at 17:01; Start 12/29/18 at 16:30; Stop 12/29/18 at 16:31; Status DC Doxycycline Hyclate 100 mg/ Dextrose 100 ml @ 50 mls/hr 1X ONCE IV Last administered on 12/29/18at 17:02; Start 12/29/18 at 16:30; Stop 12/29/18 at 18:29; Status DC Fentanyl Citrate (Fentanyl 2ml Vial) 50 mcg PRN Q1HR PRN IV PAIN Last administered on 12/29/18at 16:53; Start 12/29/18 at 16:45; Stop 12/29/18 at 18:55; Status DC Sodium Chloride 1,000 ml @ 100 mls/hr Q10H IV Last administered on 12/30/18at 12:31; Start 12/29/18 at 16:31; Stop 12/30/18 at 16:30; Status DC Fentanyl Citrate (Fentanyl 2ml Vial) 75 mcg Q2HR PRN IV PAIN Last administered on 01/04/19at 12:10; Start 12/29/18 at 19:00; Stop 01/04/19 at 13:09; Status DC Methadone HCl (Dolophine) 7.5 mg Q8HRS PO ; Start 12/29/18 at 22:00; Status UNV Methadone HCl (Dolophine) 7.5 mg Q8HRS PO Last administered on 01/05/19at 06:29; Start 12/29/18 at 22:00; Stop 01/05/19 at 09:43; Status DC Docusate Sodium (Colace) 100 mg BID PRN PO HARD STOOLS Last administered on 01/07/19at 23:34; Start 12/29/18 at 19:15; Stop 01/10/19 at 08:23; Status DC Polyethylene Glycol (miraLAX PACKET) 17 gm PRN DAILY PRN PO CONSTIPATION Last administered on 01/08/19at 17:21; Start 12/29/18 at 19:15; Stop 01/10/19 at 08:23; Status DC Pharmacy Consult (C.diff Med Screen By Rx) 1 each 1X ONCE [facility] ; Start 12/30/18 at 09:00; Stop 12/30/18 at 09:01; Status Cancel Cyclobenzaprine HCl (Flexeril) 10 mg PRN TID PRN PO back pain; Start 12/30/18 at 09:00 Docusate Sodium (Colace) 100 mg DAILY PO Last administered on 01/08/19at 09:19; Start 12/30/18 at 09:00; Stop 01/10/19 at 08:23; Status DC Lisinopril (Prinivil) 10 mg DAILY PO ; Start 12/30/18 at 09:00; Stop 12/31/18 at 08:39; Status DC Polyethylene Glycol (miraLAX PACKET) 17 gm PRN DAILY PRN PO CONSTIPATION; Start 12/30/18 at 09:00; Stop 12/30/18 at 09:19; Status DC Zolpidem Tartrate (Ambien) 5 mg QHS PRN PO INSOMNIA Last administered on 01/09/19at 23:29; Start 12/30/18 at 09:00 Gabapentin (Neurontin) 600 mg BID PO Last administered on 01/09/19at 20:17; Start 12/30/18 at 09:00 Pantoprazole Sodium (Protonix) 40 mg DAILYAC PO Last administered on 01/10/19at 06:45; Start 12/30/18 at 09:00 Furosemide (Lasix) 40 mg [id number] PO Last administered on 01/07/19at 12:54; Start 01/01/19 at 11:00; Stop 01/08/19 at 09:09; Status DC Lisinopril (Prinivil) 2.5 mg DAILY PO Last administered on 01/07/19at 08:23; Start 01/03/19 at 09:00; Stop 01/08/19 at 11:50; Status DC Heparin Sodium (Porcine) (Heparin Sodium) 5,000 unit Q8HRS SQ ; Start 01/03/19 at 14:00 Lidocaine HCl (Buffered Lidocaine 1%) 3 ml STK-MED ONCE .ROUTE ; Start 01/04/19 at 08:55; Stop 01/04/19 at 08:56; Status DC Iodixanol (Visipaque 320) 50 ml STK-MED ONCE .ROUTE ; Start 01/04/19 at 08:56; Stop 01/04/19 at 08:56; Status DC Midazolam HCl (Versed) 2 mg STK-MED ONCE .ROUTE ; Start 01/04/19 at 09:15; Stop 01/04/19 at 09:16; Status DC Fentanyl Citrate (Fentanyl 2ml Vial) 100 mcg STK-MED ONCE .ROUTE ; Start 01/04/19 at 09:15; Stop 01/04/19 at 09:16; Status DC Cefazolin Sodium 100 ml @ As Directed STK-MED ONCE IV ; Start 01/04/19 at 09:24; Stop 01/04/19 at 09:25; Status DC Midazolam HCl (Versed) 2 mg STK-MED ONCE .ROUTE ; Start 01/04/19 at 09:36; Stop 01/04/19 at 09:36; Status DC Fentanyl Citrate (Fentanyl 2ml Vial) 100 mcg STK-MED ONCE .ROUTE ; Start 01/04/19 at 09:36; Stop 01/04/19 at 09:37; Status DC Lidocaine HCl (Buffered Lidocaine 1%) 3 ml 1X ONCE IJ Last administered on 01/04/19at 09:45; Start 01/04/19 at 09:45; Stop 01/04/19 at 09:48; Status DC Midazolam HCl (Versed) 2 mg 1X ONCE IV Last administered on 01/04/19at 09:45; Start 01/04/19 at 09:45; Stop 01/04/19 at 09:48; Status DC Fentanyl Citrate (Fentanyl 2ml Vial) 100 mcg 1X ONCE IV Last administered on 01/04/19at 09:45; Start 01/04/19 at 09:45; Stop 01/04/19 at 09:48; Status DC Cefazolin Sodium 50 ml @ 100 mls/hr 1X ONCE IV Last administered on 01/04/19at 09:45; Start 01/04/19 at 09:45; Stop 01/04/19 at 10:14; Status DC Iodixanol (Visipaque 320) 50 ml 1X ONCE IART Last administered on 01/04/19at 09:45; Start 01/04/19 at 09:45; Stop 01/04/19 at 09:48; Status DC Cefazolin Sodium 50 ml @ 100 mls/hr 1X ONCE IV Last administered on 01/04/19at 09:45; Start 01/04/19 at 09:45; Stop 01/04/19 at 10:14; Status DC Fentanyl Citrate (Fentanyl 2ml Vial) 100 mcg STK-MED ONCE .ROUTE ; Start 01/04/19 at 09:51; Stop 01/04/19 at 09:52; Status DC Fentanyl Citrate (Fentanyl 2ml Vial) 75 mcg Q1HR PRN IV PAIN Last administered on 01/05/19at 09:33; Start 01/04/19 at 13:15; Stop 01/05/19 at 09:45; Status DC Levofloxacin (Levaquin) 500 mg DAILY06 PO ; Start 01/05/19 at 06:00; Stop 01/12/19 at 14:00; Status UNV Amoxicillin (Amoxil) 500 mg [id number] PO Last administered on 01/04/19at 14:20; Start 01/04/19 at 14:00; Stop 01/04/19 at 15:50; Status DC Amoxicillin (Amoxil) 500 mg Q12HR PO Last administered on 01/06/19at 08:24; Start 01/04/19 at 21:00; Stop 01/06/19 at 12:50; Status DC Phenazopyridine HCl (Pyridium) 200 mg PRN TID PRN PO URINARY PAIN Last administered on 01/06/19at 20:58; Start 01/05/19 at 09:30; Stop 01/08/19 at 11:50; Status DC Oxybutynin Chloride (Ditropan) 5 mg [id number] PO Last administered on 01/06/19at 08:24; Start 01/05/19 at 14:00; Stop 01/06/19 at 12:50; Status DC Fentanyl Citrate (Fentanyl 2ml Vial) 75 mcg PRN Q2HR PRN IV PAIN Last administered on 01/10/19at 06:45; Start 01/05/19 at 14:01 Methadone HCl (Dolophine) 20 mg TID PO Last administered on 01/07/19at 08:23; Start 01/05/19 at 14:00; Stop 01/07/19 at 10:54; Status DC Fentanyl Citrate (Fentanyl 2ml Vial) 75 mcg PRN Q1HR PRN IV PAIN Last administered on 01/05/19at 11:57; Start 01/05/19 at 10:00; Stop 01/05/19 at 14:01; Status DC Magnesium Sulfate 50 ml @ 25 mls/hr 1X ONCE IV Last administered on 01/05/19 11:56; Start 01/05/19 at 12:00; Stop 01/05/19 at 13:59; Status DC Potassium Chloride (Klor-Con) 20 meq 1X ONCE PO Last administered on 01/05/19 14:47; Start 01/05/19 at 15:00; Stop 01/05/19 at 15:01; Status DC Prochlorperazine Edisylate (Compazine) 10 mg PRN Q6HRS PRN IV NAUSEA/VOMITING Last administered on 01/06/19 11:10; Start 01/06/19 at 11:00 Oxybutynin Chloride (Ditropan) 5 mg PRN TID PRN PO BLADDER SPASM Last administered on 01/06/19 20:58; Start 01/06/19 at 12:45 Ciprofloxacin (Cipro) 250 mg BID PO Last administered on 01/10/19 09:27; Start 01/06/19 at 21:00; Stop 01/11/19 at 21:00 Oxycodone HCl (Roxicodone) 10 mg PRN Q3HRS PRN PO MODERATE TO SEVERE PAIN Last administered on 01/09/19 16:25; Start 01/06/19 at 14:45 Methadone HCl (Dolophine) 10 mg TID PO Last administered on 01/10/19 09:28; Start 01/07/19 at 14:00 Potassium Chloride (Klor-Con) 40 meq 1X ONCE PO Last administered on 01/07/19at 11:04; Start 01/07/19 at 11:00; Stop 01/07/19 at 11:01; Status DC Potassium Chloride (Klor-Con) 20 meq BID PO Last administered on 01/10/19 09:28; Start 01/07/19 at 21:00; Stop 01/10/19 at 20:59 Magnesium Sulfate/ Dextrose 100 ml @ 100 mls/hr 1X ONCE IV Last administered on 01/07/19at 12:55; Start 01/07/19 at 13:00; Stop 01/07/19 at 13:59; Status DC Magnesium Chloride (Mag Delay) 64 mg DAILY PO ; Start 01/07/19 at 13:00; Stop 01/07/19 at 12:46; Status DC Magnesium Chloride (Mag Delay) 64 mg DAILY PO ; Start 01/08/19 at 09:00 Sodium Chloride 500 ml @ 500 mls/hr 1X ONCE IV Last administered on 01/08/19at 09:30; Start 01/08/19 at 09:30; Stop 01/08/19 at 10:29; Status DC Sodium Chloride 500 ml @ 500 mls/hr PRN QID PRN IV UO< 30cc/hr over previous 6hrs; Start 01/08/19 at 14:00; Stop 01/10/19 at 08:23; Status DC Fentanyl Citrate (Fentanyl 2ml Vial) 75 mcg 1X ONCE IVP ; Start 01/08/19 at 18:30; Stop 01/08/19 at 18:31; Status DC Sodium Monofluorophosphate (Fleet Adult) 133 ml 1X ONCE [facility] ; Start 01/08/19 at 18:30; Stop 01/08/19 at 18:31; Status DC Magnesium Citrate (Citroma) 296 ml 1X ONCE PO Last administered on 01/09/19at 08:40; Start 01/09/19 at 09:00; Stop 01/09/19 at 09:01; Status DC Sodium Monofluorophosphate (Fleet Adult) 133 ml 1X ONCE NH Last administered on 01/09/19at 13:06; Start 01/09/19 at 12:00; Stop 01/09/19 at 12:01; Status DC Sodium Chloride 250 ml @ 250 mls/hr 1X ONCE IV ; Start 01/09/19 at 21:00; Stop 01/09/19 at 21:59; Status Cancel Sodium Chloride 500 ml @ 500 mls/hr 1X ONCE IV ; Start 01/09/19 at 21:00; Stop 01/09/19 at 21:59; Status DC Sodium Chloride 250 ml @ 250 mls/hr 1X ONCE IV ; Start 01/09/19 at 21:00; Stop 01/09/19 at 21:59; Status DC Docusate Sodium (Colace) 100 mg BID PO Last administered on 01/10/19at 09:28; Start 01/10/19 at 09:00 Polyethylene Glycol (miraLAX PACKET) 17 gm DAILY PO Last administered on 01/10/19at 09:28; Start 01/10/19 at 09:00 Active Scripts Active Klor-Con M20 (Potassium Chloride) 20 Meq Tab.er.prt 20 Meq PO DAILY 30 Days Polyethylene Glycol 3350 17 Gm Powd.pack 17 Gm PO PRN DAILY PRN 30 Days Colace (Docusate Sodium) 100 Mg Capsule 100 Mg PO DAILY MDD 30 30 Days Reported Keytruda (Pembrolizumab) 100 Mg/4 Ml Vial Unknown Dose IV WEEKLY Methadone Hcl 5 Mg Tablet 1.5 Tab PO Q8HRS Oxycodone Hcl 5 Mg Capsule 1-3 Tab PO PRN Q3HRS PRN Lisinopril 20 Mg Tablet 10 Mg PO DAILY Gabapentin 600 Mg Tablet 600 Mg PO BID Prevacid (Lansoprazole) 30 Mg Capsule.dr 30 Mg PO DAILY Cyclobenzaprine Hcl 10 Mg Tablet 10 Mg PO PRN TID PRN Phenergan (Promethazine HCl) 12.5 Mg Supp.rect 12.5 Mg RC PRN Q12HR PRN Ambien (Zolpidem Tartrate) 5 Mg Tablet 1 Tab PO QHS PRN Vitals/I & O Vital Sign - Last 24 Hours 01/09/19 01/09/19 01/09/19 01/09/19 10:56 11:00 11:26 14:15 Temp 98.2 98.2 Pulse 93 Resp 18 B/P (MAP) 95/46 (62) Pulse Ox 93 O2 Delivery Room Air Nasal Cannula Room Air Room Air O2 Flow Rate 2.0 01/09/19 01/09/19 01/09/19 01/09/19 14:45 15:00 16:25 17:25 Temp 98.2 98.2 Pulse 96 Resp 18 B/P (MAP) 83/37 (52) Pulse Ox 94 O2 Delivery Room Air Room Air Nasal Cannula Nasal Cannula O2 Flow Rate 2.0 01/09/19 01/09/19 01/09/19 01/09/19 18:00 19:00 19:29 20:00 Temp 99.0 99.0 Pulse 103 Resp 18 B/P (MAP) 110/50 (70) Pulse Ox 90 O2 Delivery Room Air Nasal Cannula Room Air Room Air O2 Flow Rate 2.0 01/09/19 01/10/19 01/10/19 01/10/19 23:00 03:00 07:00 07:15 Temp 98.1 98.4 98.3 98.1 98.4 98.3 Pulse 101 103 103 Resp 18 18 18 B/P (MAP) 111/43 (65) 100/51 (67) 101/47 (65) Pulse Ox 95 91 92 91 O2 Delivery Nasal Cannula Nasal Cannula Nasal Cannula Room Air O2 Flow Rate 2.0 2.0 2.0 2.0 Intake and Output 01/09/19 01/09/19 01/10/19 14:59 22:59 06:59 Intake Total 660 ml 1000 ml Output Total 1950 ml 1150 ml Balance 660 ml -1950 ml -150 ml DENYS ESTES III, MD Jan 10, 2019 10:28
[2019-01-10 11:00] VITALS: BP 90/54
[2019-01-10] MEDS: GABAPENTIN 300 MG CAPSULE. PO SCH ×2 (11:12→21:26)
--- NOTE | 2019-01-10 11:16 | PDOC ---
SUBJECTIVE ROS Just got back from radiation, feeling tired Off IVF and Lasix OBJECTIVE Vital Signs Vital Signs Date Time Temp Pulse Resp B/P (MAP) Pulse Ox O2 Delivery O2 Flow Rate FiO2 01/10/19 07:15 91 Room Air 2.0 01/10/19 07:00 98.3 103 18 101/47 (65) 98.3 I & 0 Intake and Output 01/10/19 07:00 Intake Total 1660 ml Output Total 3100 ml Balance -1440 ml Intake Oral 1660 ml Output Urine Total 2300 ml Drainage Total 800 ml PHYSICAL EXAM Physical Exam Gen.: NAD, HEENT: mucous membranes moist, Neck-LA diffuse greatest at left(per hem/Onc ) Lungs: CTA, Non labored CV RRR Abdomen: Soft, nd, no rebound, Extremities: No cyanosis, chronic LE edema bilateral left greater than right(Not worse per pt) Skin: No obvious rashes Neuro: Alert and oriented 3 No Mccl[place] , No SP or CVA tenderness, Has bilat Nephrostomy DIAGNOSIS/ASSESSMENT Assessment & Plan BRANDIN --2/2 Dehydration / Keytruda / Bilat Hydronephrosis Renal function improving , has Bilat PCN placed 01/04 E-Lytes and acid base stable Lasix dced on 01/08 ,Supportive care, I/O, Monitor, daily lab CKD stage 3 -- Baseline 1.4-1.8 Follows with me as OP Hydronephrosis - Bilat Chronic Rt Moderate hydronephrosis due to LA , new Lt s/p Bilat nephrostomy on 01/04 Microscopic hematuria- Onc and Urology following Anemia- Per Oncology Pleural effusion - On RA currently Metastatic cervical cancer: Clinically progressive disease, Recent rectal bleeding: was pending colonoscopy as outpatient scans suggest possible colitis UTI: UA cx w/ e faecalis, on amox Pleural effusion with atx: + cytology, retap prn COMMENT/RELEVANT DATA Meds Current Medications Medications (Trade) Dose Ordered Sig/Sanna Start Time Stop Time Status Last Admin Dose Admin Amoxicillin (Amoxil) 500 mg Q12HR 01/04/19 21:00 01/06/19 12:50 DC 01/06/19 08:24 500 MG Cefazolin Sodium 50 ml @ 100 mls/hr 1X ONCE 01/04/19 09:45 01/04/19 10:14 DC 01/04/19 09:45 100 MLS/HR Ceftriaxone Sodium (Rocephin) 1 gm 1X ONCE 12/29/18 16:30 12/29/18 16:31 DC 12/29/18 17:01 1 GM Ciprofloxacin (Cipro) 250 mg BID 01/06/19 21:00 01/11/19 21:00 01/10/19 09:27 250 MG Cyclobenzaprine HCl (Flexeril) 10 mg PRN TID PRN 12/30/18 09:00 Docusate Sodium (Colace) 100 mg BID 01/10/19 09:00 01/10/19 09:28 100 MG Doxycycline Hyclate 100 mg/ Dextrose 100 ml @ 50 mls/hr 1X ONCE 12/29/18 16:30 12/29/18 18:29 DC 12/29/18 17:02 50 MLS/HR Fentanyl Citrate (Fentanyl 2ml Vial) 75 mcg 1X ONCE 01/08/19 18:30 01/08/19 18:31 DC Furosemide (Lasix) 40 mg [id number] 01/01/19 11:00 01/08/19 09:09 DC 01/07/19 12:54 40 MG Gabapentin (Neurontin) 600 mg BID 12/30/18 09:00 01/09/19 20:17 600 MG Heparin Sodium (Porcine) (Heparin Sodium) 5,000 unit Q8HRS 01/03/19 14:00 Iodixanol (Visipaque 320) 50 ml 1X ONCE 01/04/19 09:45 01/04/19 09:48 DC 01/04/19 09:45 40 ML Levofloxacin (Levaquin) 500 mg DAILY06 01/05/19 06:00 01/12/19 14:00 UNV Lidocaine HCl (Buffered Lidocaine 1%) 3 ml 1X ONCE 01/04/19 09:45 01/04/19 09:48 DC 01/04/19 09:45 13 ML Lisinopril (Prinivil) 2.5 mg DAILY 01/03/19 09:00 01/08/19 11:50 DC 01/07/19 08:23 2.5 MG Magnesium Chloride (Mag Delay) 64 mg DAILY 01/08/19 09:00 Magnesium Citrate (Citroma) 296 ml 1X ONCE 01/09/19 09:00 01/09/19 09:01 DC 01/09/19 08:40 296 ML Magnesium Sulfate 50 ml @ 25 mls/hr 1X ONCE 01/05/19 12:00 01/05/19 13:59 DC 01/05/19 11:56 25 MLS/HR Magnesium Sulfate/ Dextrose 100 ml @ 100 mls/hr 1X ONCE 01/07/19 13:00 01/07/19 13:59 DC 01/07/19 12:55 100 MLS/HR Methadone HCl (Dolophine) 10 mg TID 01/07/19 14:00 01/10/19 09:28 10 MG Midazolam HCl (Versed) 2 mg 1X ONCE 01/04/19 09:45 01/04/19 09:48 DC 01/04/19 09:45 3 MG Oxybutynin Chloride (Ditropan) 5 mg PRN TID PRN 01/06/19 12:45 01/06/19 20:58 5 MG Oxycodone HCl (Roxicodone) 10 mg PRN Q3HRS PRN 01/06/19 14:45 01/09/19 16:25 10 MG Pantoprazole Sodium (Protonix) 40 mg DAILYAC 12/30/18 09:00 01/10/19 06:45 40 MG Pharmacy Consult (C.diff Med Screen By Rx) 1 each 1X ONCE 12/30/18 09:00 12/30/18 09:01 Cancel Phenazopyridine HCl (Pyridium) 200 mg PRN TID PRN 01/05/19 09:30 01/08/19 11:50 DC 01/06/19 20:58 200 MG Polyethylene Glycol (miraLAX PACKET) 17 gm DAILY 01/10/19 09:00 01/10/19 09:28 17 GM Potassium Chloride (Klor-Con) 20 meq BID 01/07/19 21:00 01/10/19 20:59 01/10/19 09:28 20 MEQ Prochlorperazine Edisylate (Compazine) 10 mg PRN Q6HRS PRN 01/06/19 11:00 01/06/19 11:10 10 MG Sodium Monofluorophosphate (Fleet Adult) 133 ml 1X ONCE 01/09/19 12:00 01/09/19 12:01 DC 01/09/19 13:06 133 ML Sodium Chloride 250 ml @ 250 mls/hr 1X ONCE 01/09/19 21:00 01/09/19 21:59 DC Zolpidem Tartrate (Ambien) 5 mg QHS PRN 12/30/18 09:00 01/09/19 23:29 5 MG Lab Laboratory Tests Test 01/10/19 06:30 Sodium Level 136 mmol/L (136-145) Potassium Level 4.1 mmol/L (3.5-5.1) Chloride Level 103 mmol/L (98-107) Carbon Dioxide Level 28 mmol/L (21-32) Anion Gap 5 (6-14) Blood Urea Nitrogen 32 mg/dL (7-20) Creatinine 2.4 mg/dL (0.6-1.0) Estimated GFR (Cockcroft-Gault) 22.6 Glucose Level 97 mg/dL (70-99) Calcium Level 9.6 mg/dL (8.5-10.1) Results All relevant outside records, renal labs, imaging studies, telemetry/EKG's were reviewed. ILIR CHICAS MD Jan 10, 2019 11:16
[2019-01-10] MEDS: CYCLOBENZAPRINE 10 MG TABLET. PO PRN (13:01)
[2019-01-10] MEDS: OXYBUTYNIN CHLORIDE 5 MG TABLET PO PRN (13:01)
--- NOTE | 2019-01-10 13:05 | NUR ---
SS following up with discharge planning. Six minute walk ordered for pt but when attempted pt declined. No PT/OT recommendations at this time. Pt is from home. SS will continue to follow for discharge planning.
--- NOTE | 2019-01-10 13:47 | RAD ---
CHEST PA LATERAL History: Metastasis. Pleural effusion. Comparison: 12/31/2018 AP view of the chest. Findings: Frontal and lateral views of the chest were obtained. Right-sided infusion port catheter noted. The cardiomediastinal silhouette is borderline. Pulmonary vasculature is normal. Small left pleural effusion is present with suggestion of increased adjacent atelectasis in the interval. No significant increase in the pleural effusion. No pneumothorax. There is no acute bone abnormality. IMPRESSION: No significant change in left pleural effusion. Increased atelectasis adjacent to the pleural effusion appears to be present. Electronically signed by: Praful Elias MD (01/10/2019 1:43 PM) [facility]
[2019-01-10 15:00] VITALS: BP 110/57
[2019-01-10 19:00] VITALS: BP 97/44
[2019-01-10] MEDS: ZOLPIDEM 5 MG TABLET. PO PRN (21:26)
[2019-01-10 23:00] VITALS: BP 104/52
[2019-01-11 03:00] VITALS: BP 98/51
[2019-01-11] MEDS: HEPARIN for SUB-Q USE 5,000 UNIT/ML VIAL. SQ SCH ×3 (06:00→22:00)
[2019-01-11] MEDS: PANTOPRAZOLE 40 MG TABLET.DR. PO SCH (06:22)
[2019-01-11 07:00] VITALS: BP 95/45
--- NOTE | 2019-01-11 08:20 | PDOC ---
PROGRESS NOTES Subjective Subjective Patient reports she is to have nephrostomy tubes internalized today. Did not do 6 minute walk yesterday but states she will do today. Objective Objective Vital Signs Date Time Temp Pulse Resp B/P (MAP) Pulse Ox O2 Delivery O2 Flow Rate FiO2 01/11/19 03:00 99.9 115 18 98/51 (67) 90 Nasal Cannula 2.0 99.9 Intake and Output 01/11/19 07:00 Intake Total 350 ml Output Total 1975 ml Balance -1625 ml Intake Oral 350 ml Output Urine Total 450 ml Drainage Total 1525 ml Physical Exam Abdomen: Normal bowel sounds, Soft, No tenderness Heart: Regular rate Extremities: Other (chronic edema bilateral LE's) General: Alert, Oriented X3, No acute distress Lungs: Other (BS decreased in L base, crackles R base) Plan Plan of Care 1. Acute renal failure with hydronephrosis and CKD - stable, apparently having her nephrostomy tubes internalized today. 2. UTI - continue Cipro. 3. malignant pleural effusion with hypoxia - s/p thoracentesis. CXR did not show increase in fluid but some atelectasis present. Patient advised IS q 2 hours. Declined 6 minute walk yesterday but states she will do today to see if she qualifies for home O2. 4. constipation - resolved, continue bowel meds daily. 5. metastatic cervical cancer - slowly progressing. Having palliative XRT. Hope to be able to discharge home tomorrow. Taking less IV Fentanyl as advised, continue her usual po pain meds. Comment Review of Relevant I have reviewed the following items heather (where applicable) has been applied. Labs Laboratory Tests Test 01/10/19 06:30 Sodium Level 136 mmol/L (136-145) Potassium Level 4.1 mmol/L (3.5-5.1) Chloride Level 103 mmol/L (98-107) Carbon Dioxide Level 28 mmol/L (21-32) Anion Gap 5 (6-14) Blood Urea Nitrogen 32 mg/dL (7-20) Creatinine 2.4 mg/dL (0.6-1.0) Estimated GFR (Cockcroft-Gault) 22.6 Glucose Level 97 mg/dL (70-99) Calcium Level 9.6 mg/dL (8.5-10.1) Microbiology 12/29/18 Blood Culture - Final, Complete NO GROWTH AFTER 5 DAYS 12/29/18 Urine Culture - Final, Complete 12/29/18 Urine Culture Result 1 (FUNMI) - Final, Complete 12/29/18 Antimicrobic Susceptibility - Final, Complete Medications Current Medications Sodium Chloride 1,000 ml @ 1,000 mls/hr 1X ONCE IV Last administered on 12/29/18 14:27; Start 12/29/18 at 14:15; Stop 12/29/18 at 15:14; Status DC Fentanyl Citrate (Fentanyl 2ml Vial) 50 mcg 1X ONCE IV Last administered on 12/29/18at 14:31; Start 12/29/18 at 14:15; Stop 12/29/18 at 14:16; Status DC Fentanyl Citrate (Fentanyl 2ml Vial) 75 mcg 1X ONCE IV Last administered on 12/29/18at 15:09; Start 12/29/18 at 15:15; Stop 12/29/18 at 15:16; Status DC Fentanyl Citrate (Fentanyl 2ml Vial) 75 mcg 1X ONCE IV Last administered on 12/29/18at 15:42; Start 12/29/18 at 15:45; Stop 12/29/18 at 15:46; Status DC Ceftriaxone Sodium (Rocephin) 1 gm 1X ONCE IVP Last administered on 12/29/18at 17:01; Start 12/29/18 at 16:30; Stop 12/29/18 at 16:31; Status DC Doxycycline Hyclate 100 mg/ Dextrose 100 ml @ 50 mls/hr 1X ONCE IV Last administered on 12/29/18at 17:02; Start 12/29/18 at 16:30; Stop 12/29/18 at 18:29; Status DC Fentanyl Citrate (Fentanyl 2ml Vial) 50 mcg PRN Q1HR PRN IV PAIN Last administered on 12/29/18 16:53; Start 12/29/18 at 16:45; Stop 12/29/18 at 18:5 5; Status DC Sodium Chloride 1,000 ml @ 100 mls/hr Q10H IV Last administered on 12/30/18at 12:31; Start 12/29/18 at 16:31; Stop 12/30/18 at 16:30; Status DC Fentanyl Citrate (Fentanyl 2ml Vial) 75 mcg Q2HR PRN IV PAIN Last administered on 01/04/19at 12:10; Start 12/29/18 at 19:00; Stop 01/04/19 at 13:09; Status DC Methadone HCl (Dolophine) 7.5 mg Q8HRS PO ; Start 12/29/18 at 22:00; Status UNV Methadone HCl (Dolophine) 7.5 mg Q8HRS PO Last administered on 01/05/19at 06:29; Start 12/29/18 at 22:00; Stop 01/05/19 at 09:43; Status DC Docusate Sodium (Colace) 100 mg BID PRN PO HARD STOOLS Last administered on 01/07/19at 23:34; Start 12/29/18 at 19:15; Stop 01/10/19 at 08:23; Status DC Polyethylene Glycol (miraLAX PACKET) 17 gm PRN DAILY PRN PO CONSTIPATION Last administered on 01/08/19at 17:21; Start 12/29/18 at 19:15; Stop 01/10/19 at 08:23; Status DC Pharmacy Consult (C.diff Med Screen By Rx) 1 each 1X ONCE MC ; Start 12/30/18 at 09:00; Stop 12/30/18 at 09:01; Status Cancel Cyclobenzaprine HCl (Flexeril) 10 mg PRN TID PRN PO back pain Last administered on 01/10/19 13:01; Start 12/30/18 at 09:00 Docusate Sodium (Colace) 100 mg DAILY PO Last administered on 01/08/19 09:19; Start 12/30/18 at 09:00; Stop 01/10/19 at 08:23; Status DC Lisinopril (Prinivil) 10 mg DAILY PO ; Start 12/30/18 at 09:00; Stop 12/31/18 at 08:39; Status DC Polyethylene Glycol (miraLAX PACKET) 17 gm PRN DAILY PRN PO CONSTIPATION; Start 12/30/18 at 09:00; Stop 12/30/18 at 09:19; Status DC Zolpidem Tartrate (Ambien) 5 mg QHS PRN PO INSOMNIA Last administered on 01/10/19 21:26; Start 12/30/18 at 09:00 Gabapentin (Neurontin) 600 mg BID PO Last administered on 01/10/19 21:26; Start 12/30/18 at 09:00 Pantoprazole Sodium (Protonix) 40 mg DAILYAC PO Last administered on 01/10/19at 06:45; Start 12/30/18 at 09:00 Furosemide (Lasix) 40 mg [id number] PO Last administered on 01/07/19at 12:54; Start 01/01/19 at 11:00; Stop 01/08/19 at 09:09; Status DC Lisinopril (Prinivil) 2.5 mg DAILY PO Last administered on 01/07/19at 08:23; Start 01/03/19 at 09:00; Stop 01/08/19 at 11:50; Status DC Heparin Sodium (Porcine) (Heparin Sodium) 5,000 unit Q8HRS SQ ; Start 01/03/19 at 14:00 Lidocaine HCl (Buffered Lidocaine 1%) 3 ml STK-MED ONCE .ROUTE ; Start 01/04/19 at 08:55; Stop 01/04/19 at 08:56; Status DC Iodixanol (Visipaque 320) 50 ml STK-MED ONCE .ROUTE ; Start 01/04/19 at 08:56; Stop 01/04/19 at 08:56; Status DC Midazolam HCl (Versed) 2 mg STK-MED ONCE .ROUTE ; Start 01/04/19 at 09:15; Stop 01/04/19 at 09:16; Status DC Fentanyl Citrate (Fentanyl 2ml Vial) 100 mcg STK-MED ONCE .ROUTE ; Start 01/04/19 at 09:15; Stop 01/04/19 at 09:16; Status DC Cefazolin Sodium 100 ml @ As Directed STK-MED ONCE IV ; Start 01/04/19 at 09:24; Stop 01/04/19 at 09:25; Status DC Midazolam HCl (Versed) 2 mg STK-MED ONCE .ROUTE ; Start 01/04/19 at 09:36; Stop 01/04/19 at 09:36; Status DC Fentanyl Citrate (Fentanyl 2ml Vial) 100 mcg STK-MED ONCE .ROUTE ; Start 01/04/19 at 09:36; Stop 01/04/19 at 09:37; Status DC Lidocaine HCl (Buffered Lidocaine 1%) 3 ml 1X ONCE IJ Last administered on 01/04/19at 09:45; Start 01/04/19 at 09:45; Stop 01/04/19 at 09:48; Status DC Midazolam HCl (Versed) 2 mg 1X ONCE IV Last administered on 01/04/19 09:45; Start 01/04/19 at 09:45; Stop 01/04/19 at 09:48; Status DC Fentanyl Citrate (Fentanyl 2ml Vial) 100 mcg 1X ONCE IV Last administered on 01/04/19 09:45; Start 01/04/19 at 09:45; Stop 01/04/19 at 09:48; Status DC Cefazolin Sodium 50 ml @ 100 mls/hr 1X ONCE IV Last administered on 01/04/19 09:45; Start 01/04/19 at 09:45; Stop 01/04/19 at 10:14; Status DC Iodixanol (Visipaque 320) 50 ml 1X ONCE IART Last administered on 01/04/19 09:45; Start 01/04/19 at 09:45; Stop 01/04/19 at 09:48; Status DC Cefazolin Sodium 50 ml @ 100 mls/hr 1X ONCE IV Last administered on 01/04/19 09:45; Start 01/04/19 at 09:45; Stop 01/04/19 at 10:14; Status DC Fentanyl Citrate (Fentanyl 2ml Vial) 100 mcg STK-MED ONCE .ROUTE ; Start 01/04/19 at 09:51; Stop 01/04/19 at 09:52; Status DC Fentanyl Citrate (Fentanyl 2ml Vial) 75 mcg Q1HR PRN IV PAIN Last administered on 01/05/19 09:33; Start 01/04/19 at 13:15; Stop 01/05/19 at 09:45; Status DC Levofloxacin (Levaquin) 500 mg DAILY06 PO ; Start 01/05/19 at 06:00; Stop 01/12/19 at 14:00; Status UNV Amoxicillin (Amoxil) 500 mg [id number] PO Last administered on 01/04/19 14:20; Start 01/04/19 at 14:00; Stop 01/04/19 at 15:50; Status DC Amoxicillin (Amoxil) 500 mg Q12HR PO Last administered on 01/06/19 08:24; Start 01/04/19 at 21:00; Stop 01/06/19 at 12:50; Status DC Phenazopyridine HCl (Pyridium) 200 mg PRN TID PRN PO URINARY PAIN Last administered on 01/06/19 20:58; Start 01/05/19 at 09:30; Stop 01/08/19 at 11:50; Status DC Oxybutynin Chloride (Ditropan) 5 mg [id number] PO Last administered on 01/06/19 08:24; Start 01/05/19 at 14:00; Stop 01/06/19 at 12:50; Status DC Fentanyl Citrate (Fentanyl 2ml Vial) 75 mcg PRN Q2HR PRN IV PAIN Last administered on 01/10/19 15:29; Start 01/05/19 at 14:01 Methadone HCl (Dolophine) 20 mg TID PO Last administered on 01/07/19 08:23; Start 01/05/19 at 14:00; Stop 01/07/19 at 10:54; Status DC Fentanyl Citrate (Fentanyl 2ml Vial) 75 mcg PRN Q1HR PRN IV PAIN Last administered on 01/05/19 11:57; Start 01/05/19 at 10:00; Stop 01/05/19 at 14:01; Status DC Magnesium Sulfate 50 ml @ 25 mls/hr 1X ONCE IV Last administered on 01/05/19 11:56; Start 01/05/19 at 12:00; Stop 01/05/19 at 13:59; Status DC Potassium Chloride (Klor-Con) 20 meq 1X ONCE PO Last administered on 01/05/19 14:47; Start 01/05/19 at 15:00; Stop 01/05/19 at 15:01; Status DC Prochlorperazine Edisylate (Compazine) 10 mg PRN Q6HRS PRN IV NAUSEA/VOMITING Last administered on 01/06/19at 11:10; Start 01/06/19 at 11:00 Oxybutynin Chloride (Ditropan) 5 mg PRN TID PRN PO BLADDER SPASM Last administered on 01/10/19 13:01; Start 01/06/19 at 12:45 Ciprofloxacin (Cipro) 250 mg BID PO Last administered on 01/10/19 21:25; Start 01/06/19 at 21:00; Stop 01/11/19 at 21:00 Oxycodone HCl (Roxicodone) 10 mg PRN Q3HRS PRN PO MODERATE TO SEVERE PAIN Last administered on 01/09/19at 16:25; Start 01/06/19 at 14:45 Methadone HCl (Dolophine) 10 mg TID PO Last administered on 01/10/19at 21:25; Start 01/07/19 at 14:00 Potassium Chloride (Klor-Con) 40 meq 1X ONCE PO Last administered on 01/07/19at 11:04; Start 01/07/19 at 11:00; Stop 01/07/19 at 11:01; Status DC Potassium Chloride (Klor-Con) 20 meq BID PO Last administered on 01/10/19at 09:28; Start 01/07/19 at 21:00; Stop 01/10/19 at 20:59; Status DC Magnesium Sulfate/ Dextrose 100 ml @ 100 mls/hr 1X ONCE IV Last administered on 01/07/19at 12:55; Start 01/07/19 at 13:00; Stop 01/07/19 at 13:59; Status DC Magnesium Chloride (Mag Delay) 64 mg DAILY PO ; Start 01/07/19 at 13:00; Stop 01/07/19 at 12:46; Status DC Magnesium Chloride (Mag Delay) 64 mg DAILY PO ; Start 01/08/19 at 09:00 Sodium Chloride 500 ml @ 500 mls/hr 1X ONCE IV Last administered on 01/08/19at 09:30; Start 01/08/19 at 09:30; Stop 01/08/19 at 10:29; Status DC Sodium Chloride 500 ml @ 500 mls/hr PRN QID PRN IV UO< 30cc/hr over previous 6hrs; Start 01/08/19 at 14:00; Stop 01/10/19 at 08:23; Status DC Fentanyl Citrate (Fentanyl 2ml Vial) 75 mcg 1X ONCE IVP ; Start 01/08/19 at 18:30; Stop 01/08/19 at 18:31; Status DC Sodium Monofluorophosphate (Fleet Adult) 133 ml 1X ONCE IA ; Start 01/08/19 at 18:30; Stop 01/08/19 at 18:31; Status DC Magnesium Citrate (Citroma) 296 ml 1X ONCE PO Last administered on 01/09/19at 08:40; Start 01/09/19 at 09:00; Stop 01/09/19 at 09:01; Status DC Sodium Monofluorophosphate (Fleet Adult) 133 ml 1X ONCE IA Last administered o n 01/09/19at 13:06; Start 01/09/19 at 12:00; Stop 01/09/19 at 12:01; Status DC Sodium Chloride 250 ml @ 250 mls/hr 1X ONCE IV ; Start 01/09/19 at 21:00; Stop 01/09/19 at 21:59; Status Cancel Sodium Chloride 500 ml @ 500 mls/hr 1X ONCE IV ; Start 01/09/19 at 21:00; Stop 01/09/19 at 21:59; Status DC Sodium Chloride 250 ml @ 250 mls/hr 1X ONCE IV ; Start 01/09/19 at 21:00; Stop 01/09/19 at 21:59; Status DC Docusate Sodium (Colace) 100 mg BID PO Last administered on 01/10/19at 21:25; Start 01/10/19 at 09:00 Polyethylene Glycol (miraLAX PACKET) 17 gm DAILY PO Last administered on 01/10/19at 09:28; Start 01/10/19 at 09:00 Active Scripts Active Klor-Con M20 (Potassium Chloride) 20 Meq Tab.er.prt 20 Meq PO DAILY 30 Days Polyethylene Glycol 3350 17 Gm Powd.pack 17 Gm PO PRN DAILY PRN 30 Days Colace (Docusate Sodium) 100 Mg Capsule 100 Mg PO DAILY MDD 30 30 Days Reported Keytruda (Pembrolizumab) 100 Mg/4 Ml Vial Unknown Dose IV WEEKLY Methadone Hcl 5 Mg Tablet 1.5 Tab PO Q8HRS Oxycodone Hcl 5 Mg Capsule 1-3 Tab PO PRN Q3HRS PRN Lisinopril 20 Mg Tablet 10 Mg PO DAILY Gabapentin 600 Mg Tablet 600 Mg PO BID Prevacid (Lansoprazole) 30 Mg Capsule.dr 30 Mg PO DAILY Cyclobenzaprine Hcl 10 Mg Tablet 10 Mg PO PRN TID PRN Phenergan (Promethazine HCl) 12.5 Mg Supp.rect 12.5 Mg RC PRN Q12HR PRN Ambien (Zolpidem Tartrate) 5 Mg Tablet 1 Tab PO QHS PRN Vitals/I & O Vital Sign - Last 24 Hours 01/10/19 01/10/19 01/10/19 01/10/19 11:00 11:14 11:44 15:00 Temp 98.3 98.3 98.3 98.3 Pulse 100 118 Resp 18 18 B/P (MAP) 90/54 (66) 110/57 (74) Pulse Ox 94 91 90 O2 Delivery Nasal Cannula Room Air Room Air Room Air O2 Flow Rate 2.0 2.0 01/10/19 01/10/19 01/10/19 01/10/19 15:29 15:59 19:00 20:25 Temp 99.0 99.0 Pulse 113 Resp 18 B/P (MAP) 97/44 (61) Pulse Ox 91 91 90 O2 Delivery Room Air Room Air Room Air Nasal Cannula O2 Flow Rate 2.0 2.0 2.0 01/10/19 01/11/19 23:00 03:00 Temp 98.5 99.9 98.5 99.9 Pulse 118 115 Resp 18 18 B/P (MAP) 104/52 (69) 98/51 (67) Pulse Ox 91 90 O2 Delivery Nasal Cannula Nasal Cannula O2 Flow Rate 2.0 Intake and Output 01/10/19 01/10/19 01/11/19 15:00 23:00 07:00 Intake Total 0 ml 350 ml Output Total 1650 ml 325 ml Balance 0 ml -1300 ml -325 ml ALYSSA MARTELL MD Jan 11, 2019 08:20
--- NOTE | 2019-01-11 09:30 | PDOC ---
SUBJECTIVE Subjective S: on O2, tired, pain kept her from getting dose 3 of radiation yesterday (lying supine), plan to internalize nephrostomy tubes today O: Gen: in bed, resting, NAD, on O2 Psych: pleasant mood and tired affect Labs: Cr 2.4 Rads: prior CXR w/ layering L eff w/ atx V/Q scan low prob 01/11 chest x-ray with left pleural effusion similar and increased atelectasis Assessment and Plan: Marivel is a 38-year-old female with metastatic cervical can cer, recently on pembrolizumab palliatively prior to admit, with clinically progressive disease and renal failure, and slight hypoxia on O2 intermittently, s/p thoracentesis 12/31 w/ 900 cc fluid w/drawn (malignant) and percutaneous nephrostomy tubes placed 01/04, plans to internalize on 01/11 UTI: tx'd per primary, will ensure cx neg w/ procedure today, apprec her RN ordering Renal failure: Appreciate urology input, has nephrostomy tubes that will be internalized today Pleural effusion with atx: + cytology, retap prn, needing O2 at home, rec IS for inc atx on CXR, no need to retap at the moment chest pain/dyspnea: V/Q scan low prob, on hep ppx w/ elev Cr, on O2 prn, getting pall RT x 12 doses starting Dec, dose 3 today w/ pain meds prior (8Gy x 1 poss?), apprec Rad/onc assistance Lower extremity edema: Left greater than right, chronic, ultrasounds have been negative for clot recently, can use compression stockings as needed, was to get outpatient stress test after last admit Low potassium and magnesium: per primary Metastatic cervical cancer: Clinically progressive disease, no clinical trial available at , (potential vaccine trial, she would have to travel likely [id number], renal function likely would preclude) could consider next line gemcitabine days 1 and 8 and 15 q 28 versus palliative care. We will continue her methadone only 10 mg 3 times a day w/ prn's and bowel meds prn Prophylaxis: heparin prophylaxis Recent rectal bleeding: was pending colonoscopy as outpatient Disposition: tomorrow maybe after home O2 set up and RT? appreciate multidisciplinary care Thank you kindly, and please don't hesitate to call with any further questions. OBJECTIVE Vital Signs Vital Signs Date Time Temp Pulse Resp B/P (MAP) Pulse Ox O2 Delivery O2 Flow Rate FiO2 01/11/19 07:00 98.8 118 16 95/45 (62) 90 Nasal Cannula 3.0 98.8 01/11/19 03:00 99.9 115 18 98/51 (67) 90 Nasal Cannula 2.0 99.9 01/10/19 23:00 98.5 118 18 104/52 (69) 91 Nasal Cannula 98.5 01/10/19 20:25 Nasal Cannula 2.0 01/10/19 19:00 99.0 113 18 97/44 (61) 90 Room Air 99.0 01/10/19 15:59 91 Room Air 2.0 01/10/19 15:29 91 Room Air 2.0 01/10/19 15:00 98.3 118 18 110/57 (74) 90 Room Air 98.3 01/10/19 11:44 91 Room Air 2.0 01/10/19 11:14 Room Air 01/10/19 11:00 98.3 100 18 90/54 (66) 94 Nasal Cannula 2.0 98.3 I & O Intake and Output 01/11/19 07:00 Intake Total 350 ml Output Total 1975 ml Balance -1625 ml Intake Oral 350 ml Output Urine Total 450 ml Drainage Total 1525 ml POWER MEHTA MD Jan 11, 2019 09:29
[2019-01-11] MEDS: fentaNYL PF VIAL 100 MCG/2 ML VIAL IV PRN ×4 (09:53→20:08)
--- NOTE | 2019-01-11 10:51 | PDOC ---
GENERAL General: Subjective: Patient brought to Rad Onc. Department-premed with fentanyl for pain and difficulty lying flat for RT yesterday. No improvement in pain. Sleeping significantly more last 2 days (per sig other). Objectiv: Drowsy, sitting in wheelchair. C/o anterior sternal CP. PE: Left cervical/SCV adenopathy firm, fixed. No ulceration of skin. CV: Tachy, regular rhythm Lungs: No BS right base. Crackles left field. CW: Holds pillows to anterior chest for support ABD: BS+, mild distention EXT: LE edema VITAL SIGNS Vital Signs/I&O: Vital Signs Date Time Temp Pulse Resp B/P (MAP) Pulse Ox O2 Delivery O2 Flow Rate FiO2 01/11/19 09:53 20 93 Nasal Cannula 2.0 01/11/19 07:00 98.8 118 95/45 (62) 98.8 I & O 01/10/19 01/10/19 01/11/19 15:00 23:00 07:00 Intake Total 0 ml 350 ml Output Total 1650 ml 325 ml Balance 0 ml -1300 ml -325 ml ALLERGIES Allergies: Allergies Coded Allergies Type Severity Reaction Last Updated Verified shrimp Allergy Severe mouth sore 12/21/18 Yes ondansetron Adverse Reaction Severe 12/21/18 Yes ASSESSMENT & PLAN A&P Stage IV, rapidly progressive metastatic Cervical cancer with me diastinal/SCV/cervical LNs. Performance status ECOG 4, and per Sig other and help desk support specialist in Rad Onc Department, rapid decline over past few days. Goal is rapid palliation of symptoms. Dr. Raines ? short course of RT with anticipation patient will d/c home possibly tomorrow. Treated today 250cGy, for TD 750cGy in 3 fractions. Agree with completing RT quickly. Will replan at 800c Gy x [address] Samuel to review tomorrow. She can then complete RT tomorrow before d/c. transport back and [place] for daily RT would be a barrier to care. CRUZ STERLING MD Jan 11, 2019 10:51
--- NOTE | 2019-01-11 11:02 | PDOC ---
SUBJECTIVE ROS s/p radiation this am OBJECTIVE Vital Signs Vital Signs Date Time Temp Pulse Resp B/P (MAP) Pulse Ox O2 Delivery O2 Flow Rate FiO2 01/11/19 09:53 20 93 Nasal Cannula 2.0 01/11/19 07:00 98.8 118 95/45 (62) 98.8 I & 0 Intake and Output 01/11/19 06:59 Intake Total 350 ml Output Total 1975 ml Balance -1625 ml Intake Oral 350 ml Output Urine Total 450 ml Drainage Total 1525 ml PHYSICAL EXAM Physical Exam Gen.: NAD, HEENT: mucous membranes moist, Neck-LA diffuse greatest at left(per hem/Onc ) Lungs: CTA, Non labored CV RRR Abdomen: Soft, nd, no rebound, Extremities: No cyanosis, chronic LE edema bilateral left greater than right(Not worse per pt) Skin: No obvious rashes Neuro: Alert and oriented 3 No Mcclendon , No SP or CVA tenderness, Has bilat Nephrostomy DIAGNOSIS/ASSESSMENT Assessment & Plan BRANDIN --2/2 Dehydration / Keytruda / Bilat Hydronephrosis Renal function has been improving ,No labs this am has Bilat PCN placed 01/04 plan for internalization today E-Lytes and acid base stable Lasix dced on 01/08 ,Supportive care, I/O, Monitor, daily lab CKD stage 3 -- Baseline 1.4-1.8 Follows with me as OP Hydronephrosis - Bilat Chronic Rt Moderate hydronephrosis due to LA , new Lt s/p Bilat nephrostomy on 01/04 , plan to internalize today Microscopic hematuria- Onc and Urology following Anemia- Per Oncology Pleural effusion - On RA currently Stage IV, rapidly progressive metastatic Cervical cancer with mediastinal/SCV/cervical LNs. Performance status ECOG 4, Goal is rapid palliation of symptoms per Dr. Ranies Recent rectal bleeding: was pending colonoscopy as outpatient scans suggest pos sible colitis UTI: UA cx w/ e faecalis, on amox Pleural effusion with atx: + cytology, retap prn COMMENT/RELEVANT DATA Meds Current Medications Medications (Trade) Dose Ordered Sig/Sanna Start Time Stop Time Status Last Admin Dose Admin Amoxicillin (Amoxil) 500 mg Q12HR 01/04/19 21:00 01/06/19 12:50 DC 01/06/19 08:24 500 MG Cefazolin Sodium 50 ml @ 100 mls/hr 1X ONCE 01/04/19 09:45 01/04/19 10:14 DC 01/04/19 09:45 100 MLS/HR Ceftriaxone Sodium (Rocephin) 1 gm 1X ONCE 12/29/18 16:30 12/29/18 16:31 DC 12/29/18 17:01 1 GM Ciprofloxacin (Cipro) 250 mg BID 01/06/19 21:00 01/11/19 21:00 01/10/19 21:25 250 MG Cyclobenzaprine HCl (Flexeril) 10 mg PRN TID PRN 12/30/18 09:00 01/10/19 13:01 10 MG Docusate Sodium (Colace) 100 mg BID 01/10/19 09:00 01/10/19 21:25 100 MG Doxycycline Hyclate 100 mg/ Dextrose 100 ml @ 50 mls/hr 1X ONCE 12/29/18 16:30 12/29/18 18:29 DC 12/29/18 17:02 50 MLS/HR Fentanyl Citrate (Fentanyl 2ml Vial) 75 mcg 1X ONCE 01/08/19 18:30 01/08/19 18:31 DC Furosemide (Lasix) 40 mg [id number] 01/01/19 11:00 01/08/19 09:09 DC 01/07/19 12:54 40 MG Gabapentin (Neurontin) 600 mg BID 12/30/18 09:00 01/10/19 21:26 600 MG Heparin Sodium (Porcine) (Heparin Sodium) 5,000 unit Q8HRS 01/03/19 14:00 Iodixanol (Visipaque 320) 50 ml 1X ONCE 01/04/19 09:45 01/04/19 09:48 DC 01/04/19 09:45 40 ML Levofloxacin (Levaquin) 500 mg DAILY06 01/05/19 06:00 01/12/19 14:00 UNV Lidocaine HCl (Buffered Lidocaine 1%) 3 ml 1X ONCE 01/04/19 09:45 01/04/19 09:48 DC 01/04/19 09:45 13 ML Lisinopril (Prinivil) 2.5 mg DAILY 01/03/19 09:00 01/08/19 11:50 DC 01/07/19 08:23 2.5 MG Magnesium Chloride (Mag Delay) 64 mg DAILY 01/08/19 09:00 Magnesium Citrate (Citroma) 296 ml 1X ONCE 01/09/19 09:00 01/09/19 09:01 DC 01/09/19 08:40 296 ML Magnesium Sulfate 50 ml @ 25 mls/hr 1X ONCE 01/05/19 12:00 01/05/19 13:59 DC 01/05/19 11:56 25 MLS/HR Magnesium Sulfate/ Dextrose 100 ml @ 100 mls/hr 1X ONCE 01/07/19 13:00 01/07/19 13:59 DC 01/07/19 12:55 100 MLS/HR Methadone HCl (Dolophine) 10 mg TID 01/07/19 14:00 01/10/19 21:25 10 MG Midazolam HCl (Versed) 2 mg 1X ONCE 01/04/19 09:45 01/04/19 09:48 DC 01/04/19 09:45 3 MG Oxybutynin Chloride (Ditropan) 5 mg PRN TID PRN 01/06/19 12:45 01/10/19 13:01 5 MG Oxycodone HCl (Roxicodone) 10 mg PRN Q3HRS PRN 01/06/19 14:45 01/09/19 16:25 10 MG Pantoprazole Sodium (Protonix) 40 mg DAILYAC 12/30/18 09:00 01/10/19 06:45 40 MG Pharmacy Consult (C.diff Med Screen By Rx) 1 each 1X ONCE 12/30/18 09:00 12/30/18 09:01 Cancel Phenazopyridine HCl (Pyridium) 200 mg PRN TID PRN 01/05/19 09:30 01/08/19 11:50 DC 01/06/19 20:58 200 MG Polyethylene Glycol (miraLAX PACKET) 17 gm DAILY 01/10/19 09:00 01/10/19 09:28 17 GM Potassium Chloride (Klor-Con) 20 meq BID 01/07/19 21:00 01/10/19 20:59 DC 01/10/19 09:28 20 MEQ Prochlorperazine Edisylate (Compazine) 10 mg PRN Q6HRS PRN 01/06/19 11:00 01/06/19 11:10 10 MG Sodium Monofluorophosphate (Fleet Adult) 133 ml 1X ONCE 01/09/19 12:00 01/09/19 12:01 DC 01/09/19 13:06 133 ML Sodium Chloride 250 ml @ 250 mls/hr 1X ONCE 01/09/19 21:00 01/09/19 21:59 DC Zolpidem Tartrate (Ambien) 5 mg QHS PRN 12/30/18 09:00 01/10/19 21:26 5 MG Results All relevant outside records, renal labs, imaging studies, telemetry/EKG's were reviewed. Other CxR 12/11 No significant change in left pleural effusion. Increased atelectasis adjacent to the pleural effusion appears to be present. ILIR CHICAS MD Jan 11, 2019 11:02
[2019-01-11] MEDS ORDERED: LIDOCAINE WITH 8.4% SOD BICARB 3 ML DISP.SYRIN. ONE (14:50)
[2019-01-11] MEDS ORDERED: IODIXANOL 320 MG/ML 50ML VIAL. ONE ×2 (14:51→16:09)
[2019-01-11] MEDS ORDERED: MIDAZOLAM HCL/PF 5 MG/5 ML VIAL. ONE (15:16)
[2019-01-11] MEDS ORDERED: fentaNYL PF VIAL 250 MCG/5 ML VIAL ONE (15:16)
[2019-01-11] MEDS ORDERED: LIDOCAINE WITH 8.4% SOD BICARB 3 ML DISP.SYRIN. IJ ONE (15:45)
[2019-01-11] MEDS ORDERED: CONTRAST GIVEN. MC PRN (15:45)
[2019-01-11] MEDS ORDERED: IODIXANOL 320 MG/ML 50ML VIAL. IART ONE (15:45)
[2019-01-11] MEDS ORDERED: fentaNYL PF VIAL 250 MCG/5 ML VIAL IV ONE (15:45)
[2019-01-11] MEDS ORDERED: MIDAZOLAM HCL/PF 2 MG/2 ML VIAL. IV ONE (15:45)
[2019-01-11 16:31] VITALS: BP 129/64
[2019-01-11] MEDS ORDERED: MIDAZOLAM HCL/PF 5 MG/5 ML VIAL. IV ONE (16:45)
--- NOTE | 2019-01-11 17:00 | PDOC ---
Exam Dampener Operator Dampener Operator Jolene Police Officer Booking Police Officer Booking Sarina Temple Pre-Procedure Diagnosis Pre-Procedure Diagnosis Distal ureter obstruction, 2 malignancy. s/p radiotherapy Post-Procedure Diagnosis Post-Procedure Diagnosis Same Procedure Performed Procedure Performed conversion of bilateral nephrostomy tubes to bilateral nephroureteral catheters. Type of Anesthesia Type of Anesthesia mod sedation Estimated Blood Loss EBL: 0 Specimens Specimans none Drain/Tubes Drains/Tubes blateral 8.5 fr x 24 cm NUS Condition of Patient Condition of Patient Stable Disposition Disposition Catheters successfully advanced into bladder. distal ureteral stenosis encou ntered bilaterally. Patient with some discomfort and urgent sense of needing to urinate following. This is common, and may resolve over the next little while. If not, may need to consider termite inspector nephrology placement. Need to arrange followup with urology for outpatient management either way. DILMA BAUTISTA MD Jan 11, 2019 17:00
--- NOTE | 2019-01-11 17:02 | PDOC2 ---
PALLIATIVE CARE Palliative Care Note Palliative Care Consult requested by Dr. Arriola to address discharge plan of care Medical Assessment per medical record; 1. Acute renal failure with hydronephrosis and CKD - stable, apparently having her nephrostomy tubes internalized today. 2. UTI - continue Cipro. 3. malignant pleural effusion with hypoxia - s/p thoracentesis. CXR did not show increase in fluid but some atelectasis present. Patient advised IS q 2 hours. Declined 6 minute walk yesterday but states she will do today to see if she qualifies for home O2. 4. constipation - resolved, continue bowel meds daily. 5. metastatic cervical cancer - slowly progressing. Having palliative XRT. Hope to be able to discharge home tomorrow Patient currently in IR for stents to be placed internally. Offered family meeting at 0730 in am. 1730 Patient returned from IR. Confirmed 0730 meeting with patient. Not likely to go home tomorrow. LADAN RICHARDSON Jan 11, 2019 17:02
[2019-01-11 17:15] VITALS: BP 118/68
[2019-01-11] MEDS: CIPROFLOXACIN HCL 250 MG TABLET. PO SCH ×2 (17:49→21:24)
[2019-01-11] MEDS: DOCUSATE SODIUM 100 MG CAPSULE. PO SCH ×2 (17:49→21:24)
[2019-01-11] MEDS: MAGNESIUM CHLORIDE ER 64 MG TABLET.ER PO SCH (17:49)
[2019-01-11] MEDS: POLYETHYLENE GLYCOL 3350 17 GM PACKET. PO SCH (17:50)
[2019-01-11] MEDS: GABAPENTIN 300 MG CAPSULE. PO SCH ×2 (17:50→21:24)
[2019-01-11] MEDS: METHADONE 10 MG TABLET. PO SCH ×2 (17:51→21:26)
[2019-01-11] MEDS: PROCHLORPERAZINE 10 MG/2 ML VIAL. IV PRN (19:03)
[2019-01-11] MEDS: CYCLOBENZAPRINE 10 MG TABLET. PO PRN (19:03)
[2019-01-11] MEDS: oxyCODONE IR 5 MG TABLET PO PRN (19:07)
[2019-01-11 19:30] VITALS: BP 94/38
[2019-01-11] MEDS: ZOLPIDEM 5 MG TABLET. PO PRN (21:24)
[2019-01-11 23:10] VITALS: BP 110/54
[2019-01-12] MEDS: oxyCODONE IR 5 MG TABLET PO PRN ×4 (03:48→20:49)
[2019-01-12] MEDS: fentaNYL PF VIAL 100 MCG/2 ML VIAL IV PRN ×2 (04:21→08:34)
[2019-01-12 04:46] LABS: CALCIUM 11.6 mg/dL (8.5-10.1); CREATININE 1.8 mg/dL (0.6-1.0); GFR 31.5; POTASSIUM 4.1 mmol/L (3.5-5.1)
[2019-01-12] MEDS: HEPARIN for SUB-Q USE 5,000 UNIT/ML VIAL. SQ SCH ×3 (06:00→22:00)
[2019-01-12 07:00] VITALS: BP 100/49
[2019-01-12] MEDS: PANTOPRAZOLE 40 MG TABLET.DR. PO SCH (07:35)
[2019-01-12] MEDS: GABAPENTIN 300 MG CAPSULE. PO SCH ×2 (08:24→20:50)
[2019-01-12] MEDS: METHADONE 10 MG TABLET. PO SCH ×3 (08:24→20:50)
[2019-01-12] MEDS: DOCUSATE SODIUM 100 MG CAPSULE. PO SCH ×2 (08:25→20:49)
[2019-01-12] MEDS: POLYETHYLENE GLYCOL 3350 17 GM PACKET. PO SCH (08:25)
[2019-01-12] MEDS: MAGNESIUM CHLORIDE ER 64 MG TABLET.ER PO SCH (08:25)
[2019-01-12] MEDS: OXYBUTYNIN CHLORIDE 5 MG TABLET PO PRN (08:36)
[2019-01-12] MEDS ORDERED: OPIUM/BELLADONNA 30/16.2MG SUPP.RECT. PR PRN (09:00)
[2019-01-12] MEDS: OXYBUTYNIN CHLORIDE 5 MG TABLET PO SCH ×3 (09:00→20:53)
--- NOTE | 2019-01-12 09:14 | PDOC ---
PROGRESS NOTES Subjective Subjective Patient sleepy after receiving IV Fentanyl. Reports bladder pain/spasms worsening. Objective Objective Vital Signs Date Time Temp Pulse Resp B/P (MAP) Pulse Ox O2 Delivery O2 Flow Rate FiO2 01/12/19 08:34 91 Nasal Cannula 3.0 01/12/19 07:00 98.0 105 16 100/49 (66) 98.0 Intake and Output 01/12/19 07:00 Intake Total 120 ml Output Total 2075 ml Balance -1955 ml Intake Oral 120 ml Output Urine Total 225 ml Drainage Total 1850 ml Physical Exam Abdomen: Normal bowel sounds, Soft, No tenderness Heart: Regular rate Extremities: No edema General: No acute distress (sleepy and unable to keep eyes open during conversation) Lungs: Other (BS decreased in L base, scant crackles R base) Plan Plan of Care 1. Acute renal failure with hydronephrosis and CKD - nephrostomy tubes internalized now per IR. Increased bladder discomfort again due to mets there. Will try B&O suppositories with scheduled Oxybutynin (Vesicare, Detrol LA and long-acting Oxybutynin not available here). 2. malignant pleural effusion with hypoxia - stable after thoracentesis. Patient encouraged to continue IS. Needs to attempt 6 minute walk to document hypoxia so that home O2 can be ordered. 3. UTI - completed tx with Cipro. 4. metastatic cervical cancer - completing palliative XRT today if able to tolerate. Pat has begun conversation with patient about Palliative home health. Outside the hospital DNR form signed. Patient is open to considering palliative home health but appears still interested in further attempts at treatment if available to her. Defer to Dr Raines on this. Comment Review of Relevant I have reviewed the following items heather (where applicable) has been applied. Labs Laboratory Tests Test 01/12/19 04:30 Sodium Level 138 mmol/L (136-145) Potassium Level 4.1 mmol/L (3.5-5.1) Chloride Level 102 mmol/L (98-107) Carbon Dioxide Level 27 mmol/L (21-32) Anion Gap 9 (6-14) Blood Urea Nitrogen 24 mg/dL (7-20) Creatinine 1.8 mg/dL (0.6-1.0) Estimated GFR (Cockcroft-Gault) 31.5 Glucose Level 107 mg/dL (70-99) Calcium Level 11.6 mg/dL (8.5-10.1) Laboratory Tests Test 01/12/19 04:30 Sodium Level 138 mmol/L (136-145) Potassium Level 4.1 mmol/L (3.5-5.1) Chloride Level 102 mmol/L (98-107) Carbon Dioxide Level 27 mmol/L (21-32) Anion Gap 9 (6-14) Blood Urea Nitrogen 24 mg/dL (7-20) Creatinine 1.8 mg/dL (0.6-1.0) Estimated GFR (Cockcroft-Gault) 31.5 Glucose Level 107 mg/dL (70-99) Calcium Level 11.6 mg/dL (8.5-10.1) Microbiology 12/29/18 Blood Culture - Final, Complete NO GROWTH AFTER 5 DAYS 12/29/18 Urine Culture - Final, Complete 12/29/18 Urine Culture Result 1 (FUNMI) - Final, Complete 12/29/18 Antimicrobic Susceptibility - Final, Complete Medications Current Medications Sodium Chloride 1,000 ml @ 1,000 mls/hr 1X ONCE IV Last administered on 12/29/18at 14:27; Start 12/29/18 at 14:15; Stop 12/29/18 at 15:14; Status DC Fentanyl Citrate (Fentanyl 2ml Vial) 50 mcg 1X ONCE IV Last administered on 12/29/18at 14:31; Start 12/29/18 at 14:15; Stop 12/29/18 at 14:16; Status DC Fentanyl Citrate (Fentanyl 2ml Vial) 75 mcg 1X ONCE IV Last administered on 12/29/18at 15:09; Start 12/29/18 at 15:15; Stop 12/29/18 at 15:16; Status DC Fentanyl Citrate (Fentanyl 2ml Vial) 75 mcg 1X ONCE IV Last administered on 12/29/18at 15:42; Start 12/29/18 at 15:45; Stop 12/29/18 at 15:46; Status DC Ceftriaxone Sodium (Rocephin) 1 gm 1X ONCE IVP Last administered on 12/29/18at 17:01; Start 12/29/18 at 16:30; Stop 12/29/18 at 16:31; Status DC Doxycycline Hyclate 100 mg/ Dextrose 100 ml @ 50 mls/hr 1X ONCE IV Last administered on 12/29/18at 17:02; Start 12/29/18 at 16:30; Stop 12/29/18 at 18:29; Status DC Fentanyl Citrate (Fentanyl 2ml Vial) 50 mcg PRN Q1HR PRN IV PAIN Last administered on 12/29/18at 16:53; Start 12/29/18 at 16:45; Stop 12/29/18 at 18:55; Status DC Sodium Chloride 1,000 ml @ 100 mls/hr Q10H IV Last administered on 12/30/18at 12:31; Start 12/29/18 at 16:31; Stop 12/30/18 at 16:30; Status DC Fentanyl Citrate (Fentanyl 2ml Vial) 75 mcg Q2HR PRN IV PAIN Last administered on 01/04/19at 12:10; Start 12/29/18 at 19:00; Stop 01/04/19 at 13:09; Status DC Methadone HCl (Dolophine) 7.5 mg Q8HRS PO ; Start 12/29/18 at 22:00; Status UNV Methadone HCl (Dolophine) 7.5 mg Q8HRS PO Last administered on 01/05/19at 06:29; Start 12/29/18 at 22:00; Stop 01/05/19 at 09:43; Status DC Docusate Sodium (Colace) 100 mg BID PRN PO HARD STOOLS Last administered on 01/07/19at 23:34; Start 12/29/18 at 19:15; Stop 01/10/19 at 08:23; Status DC Polyethylene Glycol (miraLAX PACKET) 17 gm PRN DAILY PRN PO CONSTIPATION Last administered on 01/08/19at 17:21; Start 12/29/18 at 19:15; Stop 01/10/19 at 08:23; Status DC Pharmacy Consult (C.diff Med Screen By Rx) 1 each 1X ONCE MC ; Start 12/30/18 at 09:00; Stop 12/30/18 at 09:01; Status Cancel Cyclobenzaprine HCl (Flexeril) 10 mg PRN TID PRN PO back pain Last administered on 01/11/19at 19:03; Start 12/30/18 at 09:00 Docusate Sodium (Colace) 100 mg DAILY PO Last administered on 01/08/19at 09:19; Start 12/30/18 at 09:00; Stop 01/10/19 at 08:23; Status DC Lisinopril (Prinivil) 10 mg DAILY PO ; Start 12/30/18 at 09:00; Stop 12/31/18 at 08:39; Status DC Polyethylene Glycol (miraLAX PACKET) 17 gm PRN DAILY PRN PO CONSTIPATION; Start 12/30/18 at 09:00; Stop 12/30/18 at 09:19; Status DC Zolpidem Tartrate (Ambien) 5 mg QHS PRN PO INSOMNIA Last administered on 01/11/19at 21:24; Start 12/30/18 at 09:00 Gabapentin (Neurontin) 600 mg BID PO Last administered on 01/12/19at 08:24; Start 12/30/18 at 09:00 Pantoprazole Sodium (Protonix) 40 mg DAILYAC PO Last administered on 01/12/19at 07:35; Start 12/30/18 at 09:00 Furosemide (Lasix) 40 mg [id number] PO Last administered on 01/07/19at 12:54; Start 01/01/19 at 11:00; Stop 01/08/19 at 09:09; Status DC Lisinopril (Prinivil) 2.5 mg DAILY PO Last administered on 01/07/19at 08:23; Start 01/03/19 at 09:00; Stop 01/08/19 at 11:50; Status DC Heparin Sodium (Porcine) (Heparin Sodium) 5,000 unit Q8HRS SQ ; Start 01/03/19 at 14:00 Lidocaine HCl (Buffered Lidocaine 1%) 3 ml STK-MED ONCE .ROUTE ; Start 01/04/19 at 08:55; Stop 01/04/19 at 08:56; Status DC Iodixanol (Visipaque 320) 50 ml STK-MED ONCE .ROUTE ; Start 01/04/19 at 08:56; Stop 01/04/19 at 08:56; Status DC Midazolam HCl (Versed) 2 mg STK-MED ONCE .ROUTE ; Start 01/04/19 at 09:15; Stop 01/04/19 at 09:16; Status DC Fentanyl Citrate (Fentanyl 2ml Vial) 100 mcg STK-MED ONCE .ROUTE ; Start 01/04/19 at 09:15; Stop 01/04/19 at 09:16; Status DC Cefazolin Sodium 100 ml @ As Directed STK-MED ONCE IV ; Start 01/04/19 at 09:24; Stop 01/04/19 at 09:25; Status DC Midazolam HCl (Versed) 2 mg STK-MED ONCE .ROUTE ; Start 01/04/19 at 09:36; Stop 01/04/19 at 09:36; Status DC Fentanyl Citrate (Fentanyl 2ml Vial) 100 mcg STK-MED ONCE .ROUTE ; Start 01/04/19 at 09:36; Stop 01/04/19 at 09:37; Status DC Lidocaine HCl (Buffered Lidocaine 1%) 3 ml 1X ONCE IJ Last administered on 1 09:45; Start 01/04/19 at 09:45; Stop 01/04/19 at 09:48; Status DC Midazolam HCl (Versed) 2 mg 1X ONCE IV Last administered on 01/04/19 09:45; Start 01/04/19 at 09:45; Stop 01/04/19 at 09:48; Status DC Fentanyl Citrate (Fentanyl 2ml Vial) 100 mcg 1X ONCE IV Last administered on 01/04/19 09:45; Start 01/04/19 at 09:45; Stop 01/04/19 at 09:48; Status DC Cefazolin Sodium 50 ml @ 100 mls/hr 1X ONCE IV Last administered on 01/04/19 09:45; Start 01/04/19 at 09:45; Stop 01/04/19 at 10:14; Status DC Iodixanol (Visipaque 320) 50 ml 1X ONCE IART Last administered on 01/04/19 09:45; Start 01/04/19 at 09:45; Stop 01/04/19 at 09:48; Status DC Cefazolin Sodium 50 ml @ 100 mls/hr 1X ONCE IV Last administered on 01/04/19 09:45; Start 01/04/19 at 09:45; Stop 01/04/19 at 10:14; Status DC Fentanyl Citrate (Fentanyl 2ml Vial) 100 mcg STK-MED ONCE .ROUTE ; Start 01/04/19 at 09:51; Stop 01/04/19 at 09:52; Status DC Fentanyl Citrate (Fentanyl 2ml Vial) 75 mcg Q1HR PRN IV PAIN Last administered on 01/05/19at 09:33; Start 01/04/19 at 13:15; Stop 01/05/19 at 09:45; Status DC Levofloxacin (Levaquin) 500 mg DAILY06 PO ; Start 01/05/19 at 06:00; Stop 01/12/19 at 14:00; Status UNV Amoxicillin (Amoxil) 500 mg [id number] PO Last administered on 01/04/19 14:20; Start 01/04/19 at 14:00; Stop 01/04/19 at 15:50; Status DC Amoxicillin (Amoxil) 500 mg Q12HR PO Last administered on 01/06/19 08:24; Start 01/04/19 at 21:00; Stop 01/06/19 at 12:50; Status DC Phenazopyridine HCl (Pyridium) 200 mg PRN TID PRN PO URINARY PAIN Last administered on 01/06/19 20:58; Start 01/05/19 at 09:30; Stop 01/08/19 at 11:50; Status DC Oxybutynin Chloride (Ditropan) 5 mg [id number] PO Last administered on 01/06/19 08:24; Start 01/05/19 at 14:00; Stop 01/06/19 at 12:50; Status DC Fentanyl Citrate (Fentanyl 2ml Vial) 75 mcg PRN Q2HR PRN IV PAIN Last administered on 01/11/19 13:47; Start 01/05/19 at 14:01; Stop 01/11/19 at 14:07; Status DC Methadone HCl (Dolophine) 20 mg TID PO Last administered on 01/07/19 08:23; Start 01/05/19 at 14:00; Stop 01/07/19 at 10:54; Status DC Fentanyl Citrate (Fentanyl 2ml Vial) 75 mcg PRN Q1HR PRN IV PAIN Last admin istered on 01/05/19 11:57; Start 01/05/19 at 10:00; Stop 01/05/19 at 14:01; Status DC Magnesium Sulfate 50 ml @ 25 mls/hr 1X ONCE IV Last administered on 01/05/19 11:56; Start 01/05/19 at 12:00; Stop 01/05/19 at 13:59; Status DC Potassium Chloride (Klor-Con) 20 meq 1X ONCE PO Last administered on 01/05/19at 14:47; Start 01/05/19 at 15:00; Stop 01/05/19 at 15:01; Status DC Prochlorperazine Edisylate (Compazine) 10 mg PRN Q6HRS PRN IV NAUSEA/VOMITING Last administered on 01/11/19at 19:03; Start 01/06/19 at 11:00 Oxybutynin Chloride (Ditropan) 5 mg PRN TID PRN PO BLADDER SPASM Last administered on 01/12/19 08:36; Start 01/06/19 at 12:45 Ciprofloxacin (Cipro) 250 mg BID PO Last administered on 01/11/19 21:24; Start 01/06/19 at 21:00; Stop 01/11/19 at 21:00; Status DC Oxycodone HCl (Roxicodone) 10 mg PRN Q3HRS PRN PO MODERATE TO SEVERE PAIN Last administered on 01/12/19 08:33; Start 01/06/19 at 14:45 Methadone HCl (Dolophine) 10 mg TID PO Last administered on 01/10/19at 21:25; Start 01/07/19 at 14:00; Stop 01/11/19 at 14:07; Status DC Potassium Chloride (Klor-Con) 40 meq 1X ONCE PO Last administered on 9at 11:04; Start 01/07/19 at 11:00; Stop 01/07/19 at 11:01; Status DC Potassium Chloride (Klor-Con) 20 meq BID PO Last administered on 01/10/19at 09:28; Start 01/07/19 at 21:00; Stop 01/10/19 at 20:59; Status DC Magnesium Sulfate/ Dextrose 100 ml @ 100 mls/hr 1X ONCE IV Last administered on 01/07/19at 12:55; Start 01/07/19 at 13:00; Stop 01/07/19 at 13:59; Status DC Magnesium Chloride (Mag Delay) 64 mg DAILY PO ; Start 01/07/19 at 13:00; Stop 01/07/19 at 12:46; Status DC Magnesium Chloride (Mag Delay) 64 mg DAILY PO Last administered on 01/12/19at 08:25; Start 01/08/19 at 09:00 Sodium Chloride 500 ml @ 500 mls/hr 1X ONCE IV Last administered on 10/12/19at 09:30; Start 01/08/19 at 09:30; Stop 01/08/19 at 10:29; Status DC Sodium Chloride 500 ml @ 500 mls/hr PRN QID PRN IV UO< 30cc/hr over previous 6hrs; Start 01/08/19 at 14:00; Stop 01/10/19 at 08:23; Status DC Fentanyl Citrate (Fentanyl 2ml Vial) 75 mcg 1X ONCE IVP ; Start 01/08/19 at 18:30; Stop 01/08/19 at 18:31; Status DC Sodium Monofluorophosphate (Fleet Adult) 133 ml 1X ONCE VT ; Start 01/08/19 at 18:30; Stop 01/08/19 at 18:31; Status DC Magnesium Citrate (Citroma) 296 ml 1X ONCE PO Last administered on 01/09/19at 08:40; Start 01/09/19 at 09:00; Stop 01/09/19 at 09:01; Status DC Sodium Monofluorophosphate (Fleet Adult) 133 ml 1X ONCE VT Last administered on 01/09/19at 13:06; Start 01/09/19 at 12:00; Stop 01/09/19 at 12:01; Status DC Sodium Chloride 250 ml @ 250 mls/hr 1X ONCE IV ; Start 01/09/19 at 21:00; S top 01/09/19 at 21:59; Status Cancel Sodium Chloride 500 ml @ 500 mls/hr 1X ONCE IV ; Start 01/09/19 at 21:00; Stop 01/09/19 at 21:59; Status DC Sodium Chloride 250 ml @ 250 mls/hr 1X ONCE IV ; Start 01/09/19 at 21:00; Stop 01/09/19 at 21:59; Status DC Docusate Sodium (Colace) 100 mg BID PO Last administered on 01/12/19at 08:25; Start 01/10/19 at 09:00 Polyethylene Glycol (miraLAX PACKET) 17 gm DAILY PO Last administered on 01/12/19at 08:25; Start 01/10/19 at 09:00 Fentanyl Citrate (Fentanyl 2ml Vial) 50 mcg PRN Q2HR PRN IV MODERATE TO SEVERE PAIN Last administered on 01/12/19at 08:34; Start 01/11/19 at 14:15 Methadone HCl (Dolophine) 7.5 mg TID PO Last administered on 01/12/19at 08:24; Start 01/11/19 at 14:15 Lidocaine HCl (Buffered Lidocaine 1%) 3 ml STK-MED ONCE .ROUTE ; Start 01/11/19 at 14:50; Stop 01/11/19 at 14:51; Status DC Iodixanol (Visipaque 320) 50 ml STK-MED ONCE .ROUTE ; Start 01/11/19 at 14:51; Stop 01/11/19 at 14:51; Status DC Midazolam HCl (Versed) 5 mg STK-MED ONCE .ROUTE ; Start 01/11/19 at 15:16; Stop 01/11/19 at 15:16; Status DC Fentanyl Citrate (Fentanyl 5ml Vial) 250 mcg STK-MED ONCE .ROUTE ; Start 01/11/19 at 15:16; Stop 01/11/19 at 15:17; Status DC Lidocaine HCl (Buffered Lidocaine 1%) 12 ml 1X ONCE IJ Last administered on 01/11/19at 16:44; Start 01/11/19 at 15:45; Stop 01/11/19 at 15:46; Status DC Midazolam HCl (Versed) 2 mg 1X ONCE IV ; Start 01/11/19 at 15:45; Stop 01/11/19 at 16:46; Status DC Fentanyl Citrate (Fentanyl 5ml Vial) 250 mcg 1X ONCE IV Last administered on 01/11/19at 16:44; Start 01/11/19 at 15:45; Stop 01/11/19 at 15:46; Status DC Iodixanol (Visipaque 320) 50 ml 1X ONCE IART Last administered on 01/11/19at 16:43; Start 01/11/19 at 15:45; Stop 01/11/19 at 15:46; Status DC Info (CONTRAST GIVEN -- Rx MONITORING) 1 each PRN DAILY PRN MC SEE COMMENTS; Start 01/11/19 at 15:45; Stop 01/13/19 at 15:44 Iodixanol (Visipaque 320) 50 ml STK-MED ONCE .ROUTE ; Start 01/11/19 at 16:09; Stop 01/11/19 at 16:09; Status DC Midazolam HCl (Versed) 5 mg 1X ONCE IV Last administered on 01/11/19at 16:45; Start 01/11/19 at 16:45; Stop 01/11/19 at 16:47; Status DC Active Scripts Active Klor-Con M20 (Potassium Chloride) 20 Meq Tab.er.prt 20 Meq PO DAILY 30 Days Polyethylene Glycol 3350 17 Gm Powd.pack 17 Gm PO PRN DAILY PRN 30 Days Colace (Docusate Sodium) 100 Mg Capsule 100 Mg PO DAILY MDD 30 30 Days Reported Keytruda (Pembrolizumab) 100 Mg/4 Ml Vial Unknown Dose IV WEEKLY Methadone Hcl 5 Mg Tablet 1.5 Tab PO Q8HRS Oxycodone Hcl 5 Mg Capsule 1-3 Tab PO PRN Q3HRS PRN Lisinopril 20 Mg Tablet 10 Mg PO DAILY Gabapentin 600 Mg Tablet 600 Mg PO BID Prevacid (Lansoprazole) 30 Mg Capsule.dr 30 Mg PO DAILY Cyclobenzaprine Hcl 10 Mg Tablet 10 Mg PO PRN TID PRN Phenergan (Promethazine HCl) 12.5 Mg Supp.rect 12.5 Mg RC PRN Q12HR PRN Ambien (Zolpidem Tartrate) 5 Mg Tablet 1 Tab PO QHS PRN Vitals/I & O Vital Sign - Last 24 Hours 01/11/19 01/11/19 01/11/19 01/11/19 09:53 10:50 13:47 16:31 Pulse 126 Resp 20 20 24 Pulse Ox 93 93 98 O2 Delivery Nasal Cannula patient off unit for procedure. Nasal Cannula Nasal Cannula O2 Flow Rate 2.0 2.0 2.0 01/11/19 01/11/19 01/11/19 01/11/19 16:44 17:15 17:51 19:07 Pulse 116 Resp 18 20 B/P (MAP) 118/68 (85) Pulse Ox 98 93 93 O2 Delivery Nasal Cannula Nasal Cannula Nasal Cannula O2 Flow Rate 4.0 3.0 2.0 3.0 01/11/19 01/11/19 01/11/19 01/11/19 19:30 20:00 20:07 20:08 Temp 98.7 98.7 Pulse 126 Resp 18 20 20 B/P (MAP) 94/38 (56) Pulse Ox 95 91 93 O2 Delivery Nasal Cannula Nasal Cannula Nasal Cannula Nasal Cannula O2 Flow Rate 3.0 3.0 3.0 3.0 01/11/19 01/11/19 01/12/19 01/12/19 20:38 23:10 03:00 03:48 Temp 98.7 98.7 Pulse 113 Resp 20 20 20 B/P (MAP) 110/54 (72) Pulse Ox 91 90 91 91 O2 Delivery Nasal Cannula Nasal Cannula Nasal Cannula Nasal Cannula O2 Flow Rate 3.0 3.0 3.0 3.0 01/12/19 01/12/19 01/12/19 01/12/19 04:21 07:00 07:36 08:33 Temp 98.0 98.0 Pulse 105 Resp 16 B/P (MAP) 100/49 (66) Pulse Ox 91 92 91 91 O2 Delivery Nasal Cannula Room Air Nasal Cannula Nasal Cannula O2 Flow Rate 3.0 3.0 3.0 01/12/19 08:34 Pulse Ox 91 O2 Delivery Nasal Cannula O2 Flow Rate 3.0 Intake and Output 0 01/11/19 01/11/19 01/12/19 15:00 23:00 07:00 Intake Total 120 ml Output Total 550 ml 225 ml 1300 ml Balance -550 ml -225 ml -1180 ml ALYSSA MARTELL MD Jan 12, 2019 09:14
--- NOTE | 2019-01-12 10:08 | PDOC2 ---
PALLIATIVE CARE Palliative Care Note Palliative Care Patient awakens easily. Met with patient and Obdulio MARRERO. No family present. Discussed AD. Patient has assistance of Legal firm and should complete this today. Should include medical and financial. Discussed difference between AD and DNR. Discussed Code Status; Patient requests DNR/DNI. Outside the Hospital DNR/DNI form read and signed by patient. Patient states she has one more chemo treatment. Discussed options for care following chemo/radiation therapy. With continue treatment Palliative Home Care would be beneficial for added symptom management. When treatment completed patient would be able to receive more support under Hospice. Reviewed options for Hospice Agency. Patient has 3 adopted daughters. School and counselors are aware of her illness. Dr. Porter managing pain. Currently on Methadone with Fentanyl and Oxycodone for breakthrough Above reviewed with Dr. Arriola. Will continue to follow and support. LADAN RICHARDSON Jan 12, 2019 10:08
--- NOTE | 2019-01-12 10:11 | PDOC ---
SUBJECTIVE ROS s/p PCN internalization on 01/11 Was having bladder pain/spasms this am , recd Fentanyl Getting Radiation OBJECTIVE Vital Signs Vital Signs Date Time Temp Pulse Resp B/P (MAP) Pulse Ox O2 Delivery O2 Flow Rate FiO2 01/12/19 09:29 91 Nasal Cannula 3.0 01/12/19 07:00 98.0 105 16 100/49 (66) 98.0 I & 0 Intake and Output 01/12/19 07:00 Intake Total 120 ml Output Total 2075 ml Balance -1955 ml Intake Oral 120 ml Output Urine Total 225 ml Drainage Total 1850 ml PHYSICAL EXAM Physical Exam Gen.: NAD, HEENT: mucous membranes moist, Neck-LA diffuse greatest at left(per hem/Onc ) Lungs: CTA, Non labored CV RRR Abdomen: Soft, nd, no rebound, Extremities: No cyanosis, chronic LE edema bilateral left greater than right(Not worse per pt) Skin: No obvious rashes Neuro: Alert and oriented 3 No Mcclendon , No SP or CVA tenderness DIAGNOSIS/ASSESSMENT Assessment & Plan BRANDIN --2/2 Dehydration / Keytruda / Bilat Hydronephrosis Renal function improving - at her baseline now has Bilat PCN placed 01/04 - internalized on 01/11 E-Lytes and acid base stable Lasix dced on 01/08 ,Supportive care, I/O, Monitor, daily lab CKD stage 3 -- Baseline 1.4-1.8 Follows with me as OP Hydronephrosis - Bilat Chronic Rt Moderate hydronephrosis due to LA , new Lt s/p Bilat nephrostomy on 01/04 - internalized 01/11 Microscopic hematuria- Onc and Urology following Anemia- Per Oncology Pleural effusion - On RA currently Stage IV, rapidly progressive metastatic Cervical cancer with mediastinal/SCV /cervical LNs. Performance status ECOG 4, Goal is rapid palliation of symptoms per Dr. Raines Recent rectal bleeding: was pending colonoscopy as outpatient scans suggest possible colitis UTI: UA cx w/ e faecalis, on amox Pleural effusion with atx: + cytology, retap prn COMMENT/RELEVANT DATA Meds Current Medications Medications (Trade) Dose Ordered Sig/Sanna Start Time Stop Time Status Last Admin Dose Admin Amoxicillin (Amoxil) 500 mg Q12HR 01/04/19 21:00 01/06/19 12:50 DC 01/06/19 08:24 500 MG Belladonna Alkaloids/Opium (B & O) 1 supp Q12HR 01/12/19 09:15 Cefazolin Sodium 50 ml @ 100 mls/hr 1X ONCE 01/04/19 09:45 01/04/19 10:14 DC 01/04/19 09:45 100 MLS/HR Ceftriaxone Sodium (Rocephin) 1 gm 1X ONCE 12/29/18 16:30 12/29/18 16:31 DC 12/29/18 17:01 1 GM Ciprofloxacin (Cipro) 250 mg BID 01/06/19 21:00 01/11/19 21:00 DC 01/11/19 21:24 250 MG Cyclobenzaprine HCl (Flexeril) 10 mg PRN TID PRN 12/30/18 09:00 01/11/19 19:03 10 MG Docusate Sodium (Colace) 100 mg BID 01/10/19 09:00 01/12/19 08:25 100 MG Doxycycline Hyclate 100 mg/ Dextrose 100 ml @ 50 mls/hr 1X ONCE 12/29/18 16:30 12/29/18 18:29 DC 12/29/18 17:02 50 MLS/HR Fentanyl Citrate (Fentanyl 2ml Vial) 50 mcg PRN Q2HR PRN 01/11/19 14:15 01/12/19 08:34 50 MCG Fentanyl Citrate (Fentanyl 5ml Vial) 250 mcg 1X ONCE 01/11/19 15:45 01/11/19 15:46 DC 01/11/19 16:44 250 MCG Furosemide (Lasix) 40 mg [id number] 01/01/19 11:00 01/08/19 09:09 DC 01/07/19 12:54 40 MG Gabapentin (Neurontin) 600 mg BID 12/30/18 09:00 01/12/19 08:24 600 MG Heparin Sodium (Porcine) (Heparin Sodium) 5,000 unit Q8HRS 01/03/19 14:00 Info (CONTRAST GIVEN -- Rx MONITORING) 1 each PRN DAILY PRN 01/11/19 15:45 01/13/19 15:44 Iodixanol (Visipaque 320) 50 ml STK-MED ONCE 01/11/19 16:09 01/11/19 16:09 DC Levofloxacin (Levaquin) 500 mg DAILY06 01/05/19 06:00 01/12/19 14:00 UNV Lidocaine HCl (Buffered Lidocaine 1%) 12 ml 1X ONCE 01/11/19 15:45 01/11/19 15:46 DC 01/11/19 16:44 2 ML Lisinopril (Prinivil) 2.5 mg DAILY 01/03/19 09:00 01/08/19 11:50 DC 01/07/19 08:23 2.5 MG Magnesium Chloride (Mag Delay) 64 mg DAILY 01/08/19 09:00 01/12/19 08:25 64 MG Magnesium Citrate (Citroma) 296 ml 1X ONCE 01/09/19 09:00 01/09/19 09:01 DC 01/09/19 08:40 296 ML Magnesium Sulfate 50 ml @ 25 mls/hr 1X ONCE 01/05/19 12:00 01/05/19 13:59 DC 01/05/19 11:56 25 MLS/HR Magnesium Sulfate/ Dextrose 100 ml @ 100 mls/hr 1X ONCE 01/07/19 13:00 01/07/19 13:59 DC 01/07/19 12:55 100 MLS/HR Methadone HCl (Dolophine) 7.5 mg TID 01/11/19 14:15 01/12/19 08:24 7.5 MG Midazolam HCl (Versed) 5 mg 1X ONCE 01/11/19 16:45 01/11/19 16:47 DC 01/11/19 16:45 4 MG Oxybutynin Chloride (Ditropan) 5 mg [id number] 01/12/19 09:00 Oxycodone HCl (Roxicodone) 10 mg PRN Q3HRS PRN 01/06/19 14:45 01/12/19 08:33 10 MG Pantoprazole Sodium (Protonix) 40 mg DAILYAC 12/30/18 09:00 01/12/19 07:35 40 MG Pharmacy Consult (C.diff Med Screen By Rx) 1 each 1X ONCE 12/30/18 09:00 12/30/18 09:01 Cancel Phenazopyridine HCl (Pyridium) 200 mg PRN TID PRN 01/05/19 09:30 01/08/19 11:50 DC 01/06/19 20:58 200 MG Polyethylene Glycol (miraLAX PACKET) 17 gm DAILY 01/10/19 09:00 01/12/19 08:25 17 GM Potassium Chloride (Klor-Con) 20 meq BID 01/07/19 21:00 01/10/19 20:59 DC 01/10/19 09:28 20 MEQ Prochlorperazine Edisylate (Compazine) 10 mg PRN Q6HRS PRN 01/06/19 11:00 01/11/19 19:03 10 MG Sodium Monofluorophosphate (Fleet Adult) 133 ml 1X ONCE 01/09/19 12:00 01/09/19 12:01 DC 01/09/19 13:06 133 ML Sodium Chloride 250 ml @ 250 mls/hr 1X ONCE 01/09/19 21:00 01/09/19 21:59 DC Zolpidem Tartrate (Ambien) 5 mg QHS PRN 12/30/18 09:00 01/11/19 21:24 5 MG Lab Laboratory Tests Test 01/12/19 04:30 Sodium Level 138 mmol/L (136-145) Potassium Level 4.1 mmol/L (3.5-5.1) Chloride Level 102 mmol/L (98-107) Carbon Dioxide Level 27 mmol/L (21-32) Anion Gap 9 (6-14) Blood Urea Nitrogen 24 mg/dL (7-20) Creatinine 1.8 mg/dL (0.6-1.0) Estimated GFR (Cockcroft-Gault) 31.5 Glucose Level 107 mg/dL (70-99) Calcium Level 11.6 mg/dL (8.5-10.1) Results All relevant outside records, renal labs, imaging studies, telemetry/EKG's were reviewed. ILIR CHICAS MD Jan 12, 2019 10:11
--- NOTE | 2019-01-12 10:11 | PDOC ---
SUBJECTIVE Subjective S: on O2, tired, slept well, may get RT x1 today? did internalize nephrostomy tubes, to be capped and watched 24-48 hrs soon... O: Gen: in bathroom, NAD, on O2 Psych: pleasant mood and tired affect Labs: Cr down to 1.8 Rads: prior CXR w/ layering L eff w/ atx V/Q scan low prob 01/11 chest x-ray with left pleural effusion similar and increased atelectasis Assessment and Plan: Marivel is a 38-year-old female with metastatic cervical cance r, recently on pembrolizumab palliatively prior to admit, with clinically progressive disease and renal failure, and slight hypoxia on O2 intermittently, s/p thoracentesis 12/31 w/ 900 cc fluid w/drawn (malignant) and percutaneous nephrostomy tubes placed 01/04, internalized on 01/11 UTI: tx'd per primary, ordered f/u cx Renal failure: Appreciate urology input, has nephrostomy tubes internalized, will be capped per IR Pleural effusion with atx: + cytology, retap prn, needing O2 at home, rec IS for inc atx on CXR, no need to retap at the moment chest pain/dyspnea: V/Q scan low prob, on hep ppx w/ elev Cr, on O2 prn, getting pall RT x 12 doses starting Dec, dose 3 today w/ pain meds prior (8Gy x 1 poss?), apprec Rad/onc assistance Lower extremity edema: Left greater than right, chronic, ultrasounds have been negative for clot recently, can use compression stockings as needed, was to get outpatient stress test after last admit Low potassium and magnesium: per primary Metastatic cervical cancer: Clinically progressive disease, no clinical trial available at , (potential vaccine trial, she would have to travel likely [id number], renal function likely would preclude) could consider next line gemcitabine days 1 and 8 and 15 q 28 versus palliative care. She is aware she'd need to walk in and tell me she wants chemo if so and currently functional status too poor, as well, response rates decline w/ successive tx and w/ cytopenias w/ gem risk of infection increased. Will reeval next wk. We will continue her methadone 7.5 mg 3 times a day w/ fentanyl 50 mcg prn and bowel meds prn Prophylaxis: heparin prophylaxis while here Recent rectal bleeding: was pending colonoscopy as outpatient, will defer this for now Disposition: after RT, pall care set up, O2 set up prn, and tubes managed per IR, appreciate multidisciplinary care Thank you kindly, and please don't hesitate to call with any further questions, I will return on Thursday but Dr Steve is avail in the interim prn. OBJECTIVE Vital Signs Vital Signs Date Time Temp Pulse Resp B/P (MAP) Pulse Ox O2 Delivery O2 Flow Rate FiO2 01/12/19 09:29 91 Nasal Cannula 3.0 01/12/19 09:29 91 Nasal Cannula 3.0 01/12/19 08:34 91 Nasal Cannula 3.0 01/12/19 08:33 91 Nasal Cannula 3.0 01/12/19 08:00 Nasal Cannula 3.0 01/12/19 07:36 91 Nasal Cannula 3.0 01/12/19 07:00 98.0 105 16 100/49 (66) 92 Room Air 98.0 01/12/19 04:21 91 Nasal Cannula 3.0 01/12/19 03:48 20 91 Nasal Cannula 3.0 01/12/19 03:00 91 Nasal Cannula 3.0 01/11/19 23:10 98.7 113 20 110/54 (72) 90 Nasal Cannula 3.0 98.7 01/11/19 20:38 20 91 Nasal Cannula 3.0 01/11/19 20:08 20 93 Nasal Cannula 3.0 01/11/19 20:07 20 91 Nasal Cannula 3.0 01/11/19 20:00 Nasal Cannula 3.0 01/11/19 19:30 98.7 126 18 94/38 (56) 95 Nasal Cannula 3.0 98.7 01/11/19 19:07 Nasal Cannula 3.0 01/11/19 17:51 20 93 Nasal Cannula 2.0 01/11/19 17:15 116 118/68 (85) 93 3.0 01/11/19 16:44 18 98 Nasal Cannula 4.0 01/11/19 16:31 126 24 98 Nasal Cannula 2.0 01/11/19 13:47 20 93 Nasal Cannula 2.0 01/11/19 10:50 patient off unit for procedure. I & O Intake and Output 01/12/19 06:59 Intake Total 120 ml Output Total 2075 ml Balance -1955 ml Intake Oral 120 ml Output Urine Total 225 ml Drainage Total 1850 ml COMMENT Lab Laboratory Tests Test 01/12/19 04:30 Sodium Level 138 mmol/L (136-145) Potassium Level 4.1 mmol/L (3.5-5.1) Chloride Level 102 mmol/L (98-107) Carbon Dioxide Level 27 mmol/L (21-32) Anion Gap 9 (6-14) Blood Urea Nitrogen 24 mg/dL (7-20) Creatinine 1.8 mg/dL (0.6-1.0) Estimated GFR (Cockcroft-Gault) 31.5 Glucose Level 107 mg/dL (70-99) Calcium Level 11.6 mg/dL (8.5-10.1) POWER MEHTA MD Jan 12, 2019 10:11
--- NOTE | 2019-01-12 10:46 | PDOC ---
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 Has received 3 days of pall RT to cervical supraclav and upper mediastinal nodes. Radiation prescription modified to complete treatment today (8 Gy x 1) Nephrostomies converted to internalized ureteral stents. Neph tubes now capped off. Notes increased bladder spasms and pain since antegrade stents passed. Able to lay flat with meds for radiation. Discussed with patient and Dr. Bowman, could add B and O suppositories for increased bladder spasm and pain in addition to current pain meds and antispasmotics in use. Will complete radiation today as outlined above. COLETTE MOODY MD Jan 12, 2019 10:46
[2019-01-12 11:00] VITALS: BP 94/57
[2019-01-12] MEDS: OPIUM/BELLADONNA 30/16.2MG SUPP.RECT. PR SCH ×3 (11:43→22:22)
[2019-01-12] MEDS: [UNRECOGNIZED DRUG - OTHER] PO SCH ×2 (12:00→21:00)
--- NOTE | 2019-01-12 12:39 | NUR ---
SS following up with discharge planning. Six minute walk completed. Pt was 91% on room air, 92%-96% with exertion, and 93% on recovery. Pt did not qualify for home oxygen. SS will continue to follow for discharge planning.
[2019-01-12 15:00] VITALS: BP 96/49
[2019-01-12 19:00] VITALS: BP 101/37
[2019-01-12] MEDS: ZOLPIDEM 5 MG TABLET. PO PRN (20:50)
--- NOTE | 2019-01-13 00:55 | PN ---
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 She had an initial excellent response to primary radiation and systemic sensitizing chemotherapy, completing her initial treatment here in 08/2017. She then developed disease progression in her supraclavicular and mediastinal scarlett region confirmed by biopsy of the left supraclavicular region in 10/2017 and 09/2018, she underwent cystoscopy, at which time, biopsy of the floor of the bladder confirmed bladder recurrence. She has also been on a series of systemic salvage therapies including carboplatin, Taxol, Avastin followed by maintenance Avastin followed by Keytruda. She was admitted on 12/30/2018 and remains admitted as a result of increasing renal failure with her creatinine increasing to 4 prior to admission. During her admission, she underwent bilateral nephrostomy tube placement and following this, has now undergone antegrade ureteral stent placement on 01/11/2019. During this time, she has had improvement in her renal function and increasing bladder pain and spasms poorly managed on current medications. During this time, she initiated palliative radiation therapy for painful scarlett metastases in the left cervical, bilateral supraclavicular and upper mediastinal region. Initially, she was treated with conventional fractionation of 2.5 Gy per day, anticipating a 12-day course of treatment, lying down became increasingly difficult and after the third day, treatment was truncated to a final dose of 8 Gy x 1 to limit the duration of her treatment course. The following is a summary for treatment here. DATES OF TREATMENT: 01/06 through 01/12/2019. REGION TREATED: Left cervical, bilateral supraclavicular and central mediastinal region. TREATMENT TECHNIQUE: A combination of paired oblique ervin with AP-PA ervin were used to cover scarlett structures and spare uninvolved midline cervical esophagus and oral cavity. DOSE PER DAY: 2.5 Gy for the first 3 fractions, 8 Gy for the last fraction. TOTAL DOSE: 15.5 Gy. Treatment was well tolerated thus far, she has not had acute toxicity from treatment, although this may be anticipated following treatment in the next week. At this time, she has continued to convalesce in the hospital. Adjustments are being made for her bladder spasm pain following antegrade ureteral stent placement. We anticipate she will be discharged with palliative care nursing at home. If feasible, we will plan to see her in followup in 1 month to assess her response to treatment. Thank you again for allowing us to participate in her care. COLETTE MOODY MD DR: JONI/kristopher JOB#: [id number] / [id number] ILIR Miller MD, MARGARET MD MTDD
[2019-01-13] MEDS: OPIUM/BELLADONNA 30/16.2MG SUPP.RECT. PR SCH (01:44)
[2019-01-13 03:00] VITALS: BP 109/49
[2019-01-13] MEDS: HEPARIN for SUB-Q USE 5,000 UNIT/ML VIAL. SQ SCH ×2 (06:00→14:00)
[2019-01-13] MEDS: oxyCODONE IR 5 MG TABLET PO PRN ×2 (06:57→18:55)
[2019-01-13] MEDS: fentaNYL PF VIAL 100 MCG/2 ML VIAL IV PRN ×4 (06:57→19:05)
[2019-01-13] MEDS: PANTOPRAZOLE 40 MG TABLET.DR. PO SCH (07:03)
[2019-01-13 07:20] VITALS: BP 110/53
[2019-01-13] MEDS: METHADONE 10 MG TABLET. PO SCH ×3 (09:00→18:25)
[2019-01-13] MEDS: POLYETHYLENE GLYCOL 3350 17 GM PACKET. PO SCH (09:00)
[2019-01-13] MEDS: DOCUSATE SODIUM 100 MG CAPSULE. PO SCH (09:02)
[2019-01-13] MEDS: GABAPENTIN 300 MG CAPSULE. PO SCH (09:03)
[2019-01-13] MEDS: OXYBUTYNIN CHLORIDE 5 MG TABLET PO SCH ×3 (09:03→18:55)
[2019-01-13] MEDS: [UNRECOGNIZED DRUG - OTHER] PO SCH (09:04)
--- NOTE | 2019-01-13 09:42 | PDOC ---
PROGRESS NOTES Subjective Subjective Patient reports bladder spasms are better with the suppositories. Getting in our chapel this evening, ready to go home after that. Objective Objective Vital Signs Date Time Temp Pulse Resp B/P (MAP) Pulse Ox O2 Delivery O2 Flow Rate FiO2 01/13/19 07:20 110 16 110/53 (72) 94 Nasal Cannula 3.0 01/13/19 03:00 97.8 97.8 Intake and Output 01/13/19 07:00 Intake Total 100 ml Output Total 475 ml Balance -375 ml Intake Oral 100 ml Output Urine Total 200 ml Drainage Total 275 ml # Voids 4 Physical Exam Abdomen: Normal bowel sounds, Soft, No tenderness Heart: Regular rate Extremities: Other (mild chronic lymphedema) General: No acute distress (somewhat sleepy after IV Fentanyl this AM) Lungs: Other (decreased BS L base, few crackles R base otherwise CTA) Plan Plan of Care 1. Acute renal failure with hydronephrosis and CKD III - stable after internalization of nephrostomy tubes yesterday. Home with B&O suppositories for bladder spasms. 2. UTI - treated with 5 days Cipro. 3. malignant pleural effusion with hypoxia, s/p thoracentesis - passed her 6 minute walk yesterday but hypoxic at rest some of the time and has subjective CHAPMAN. Patient is on private insurance, not Medicare, so should not necessarily have to meet Medicare criteria for home O2. Scrip written, SW will need to work on this today. Can go home even if O2 is not approved, home health can work on this as outpatient if needed. 4. metastatic cervical cancer - worsening. Home on palliative home health. Comment Review of Relevant I have reviewed the following items heather (where applicable) has been applied. Labs Laboratory Tests Test 01/12/19 04:30 Sodium Level 138 mmol/L (136-145) Potassium Level 4.1 mmol/L (3.5-5.1) Chloride Level 102 mmol/L (98-107) Carbon Dioxide Level 27 mmol/L (21-32) Anion Gap 9 (6-14) Blood Urea Nitrogen 24 mg/dL (7-20) Creatinine 1.8 mg/dL (0.6-1.0) Estimated GFR (Cockcroft-Gault) 31.5 Glucose Level 107 mg/dL (70-99) Calcium Level 11.6 mg/dL (8.5-10.1) Microbiology 12/29/18 Blood Culture - Final, Complete NO GROWTH AFTER 5 DAYS 12/29/18 Urine Culture - Final, Complete 12/29/18 Urine Culture Result 1 (FUNMI) - Final, Complete 12/29/18 Antimicrobic Susceptibility - Final, Complete Medications Current Medications Sodium Chloride 1,000 ml @ 1,000 mls/hr 1X ONCE IV Last administered on 12/29/18at 14:27; Start 12/29/18 at 14:15; Stop 12/29/18 at 15:14; Status DC Fentanyl Citrate (Fentanyl 2ml Vial) 50 mcg 1X ONCE IV Last administered on 12/29/18at 14:31; Start 12/29/18 at 14:15; Stop 12/29/18 at 14:16; Status DC Fentanyl Citrate (Fentanyl 2ml Vial) 75 mcg 1X ONCE IV Last administered on 12/29/18at 15:09; Start 12/29/18 at 15:15; Stop 12/29/18 at 15:16; Status DC Fentanyl Citrate (Fentanyl 2ml Vial) 75 mcg 1X ONCE IV Last administered on 12/29/18at 15:42; Start 12/29/18 at 15:45; Stop 12/29/18 at 15:46; Status DC Ceftriaxone Sodium (Rocephin) 1 gm 1X ONCE IVP Last administered on 12/29/18at 17:01; Start 12/29/18 at 16:30; Stop 12/29/18 at 16:31; Status DC Doxycycline Hyclate 100 mg/ Dextrose 100 ml @ 50 mls/hr 1X ONCE IV Last administered on 12/29/18at 17:02; Start 12/29/18 at 16:30; Stop 12/29/18 at 18:29; Status DC Fentanyl Citrate (Fentanyl 2ml Vial) 50 mcg PRN Q1HR PRN IV PAIN Last administered on 12/29/18at 16:53; Start 12/29/18 at 16:45; Stop 12/29/18 at 18:5 5; Status DC Sodium Chloride 1,000 ml @ 100 mls/hr Q10H IV Last administered on 12/30/18at 12:31; Start 12/29/18 at 16:31; Stop 12/30/18 at 16:30; Status DC Fentanyl Citrate (Fentanyl 2ml Vial) 75 mcg Q2HR PRN IV PAIN Last administered on 01/04/19at 12:10; Start 12/29/18 at 19:00; Stop 01/04/19 at 13:09; Status DC Methadone HCl (Dolophine) 7.5 mg Q8HRS PO ; Start 12/29/18 at 22:00; Status UNV Methadone HCl (Dolophine) 7.5 mg Q8HRS PO Last administered on 01/05/19at 06:29; Start 12/29/18 at 22:00; Stop 01/05/19 at 09:43; Status DC Docusate Sodium (Colace) 100 mg BID PRN PO HARD STOOLS Last administered on 01/07/19at 23:34; Start 12/29/18 at 19:15; Stop 01/10/19 at 08:23; Status DC Polyethylene Glycol (miraLAX PACKET) 17 gm PRN DAILY PRN PO CONSTIPATION Last administered on 01/08/19at 17:21; Start 12/29/18 at 19:15; Stop 01/10/19 at 08:23; Status DC Pharmacy Consult (C.diff Med Screen By Rx) 1 each 1X ONCE MC ; Start 12/30/18 at 09:00; Stop 12/30/18 at 09:01; Status Cancel Cyclobenzaprine HCl (Flexeril) 10 mg PRN TID PRN PO back pain Last administered on 01/11/19at 19:03; Start 12/30/18 at 09:00 Docusate Sodium (Colace) 100 mg DAILY PO Last administered on 01/08/19at 09:19; Start 12/30/18 at 09:00; Stop 01/10/19 at 08:23; Status DC Lisinopril (Prinivil) 10 mg DAILY PO ; Start 12/30/18 at 09:00; Stop 12/31/18 at 08:39; Status DC Polyethylene Glycol (miraLAX PACKET) 17 gm PRN DAILY PRN PO CONSTIPATION; Start 12/30/18 at 09:00; Stop 12/30/18 at 09:19; Status DC Zolpidem Tartrate (Ambien) 5 mg QHS PRN PO INSOMNIA Last administered on 01/12/19at 20:50; Start 12/30/18 at 09:00 Gabapentin (Neurontin) 600 mg BID PO Last administered on 01/13/19at 09:03; Start 12/30/18 at 09:00 Pantoprazole Sodium (Protonix) 40 mg DAILYAC PO Last administered on 01/13/19at 07:03; Start 12/30/18 at 09:00 Furosemide (Lasix) 40 mg [id number] PO Last administered on 01/07/19at 12:54; Start 01/01/19 at 11:00; Stop 01/08/19 at 09:09; Status DC Lisinopril (Prinivil) 2.5 mg DAILY PO Last administered on 01/07/19at 08:23; Start 01/03/19 at 09:00; Stop 01/08/19 at 11:50; Status DC Heparin Sodium (Porcine) (Heparin Sodium) 5,000 unit Q8HRS SQ ; Start 01/03/19 at 14:00 Lidocaine HCl (Buffered Lidocaine 1%) 3 ml STK-MED ONCE .ROUTE ; Start 01/04/19 at 08:55; Stop 01/04/19 at 08:56; Status DC Iodixanol (Visipaque 320) 50 ml STK-MED ONCE .ROUTE ; Start 01/04/19 at 08:56; Stop 01/04/19 at 08:56; Status DC Midazolam HCl (Versed) 2 mg STK-MED ONCE .ROUTE ; Start 01/04/19 at 09:15; Stop 01/04/19 at 09:16; Status DC Fentanyl Citrate (Fentanyl 2ml Vial) 100 mcg STK-MED ONCE .ROUTE ; Start 01/04/19 at 09:15; Stop 01/04/19 at 09:16; Status DC Cefazolin Sodium 100 ml @ As Directed STK-MED ONCE IV ; Start 01/04/19 at 09:24; Stop 01/04/19 at 09:25; Status DC Midazolam HCl (Versed) 2 mg STK-MED ONCE .ROUTE ; Start 01/04/19 at 09:36; Stop 01/04/19 at 09:36; Status DC Fentanyl Citrate (Fentanyl 2ml Vial) 100 mcg STK-MED ONCE .ROUTE ; Start 01/04/19 at 09:36; Stop 01/04/19 at 09:37; Status DC Lidocaine HCl (Buffered Lidocaine 1%) 3 ml 1X ONCE IJ Last administered on 01/04/19at 09:45; Start 01/04/19 at 09:45; Stop 01/04/19 at 09:48; Status DC Midazolam HCl (Versed) 2 mg 1X ONCE IV Last administered on 01/04/19 09:45; Start 01/04/19 at 09:45; Stop 01/04/19 at 09:48; Status DC Fentanyl Citrate (Fentanyl 2ml Vial) 100 mcg 1X ONCE IV Last administered on 01/04/19 09:45; Start 01/04/19 at 09:45; Stop 01/04/19 at 09:48; Status DC Cefazolin Sodium 50 ml @ 100 mls/hr 1X ONCE IV Last administered on 01/04/19 09:45; Start 01/04/19 at 09:45; Stop 01/04/19 at 10:14; Status DC Iodixanol (Visipaque 320) 50 ml 1X ONCE IART Last administered on 01/04/19 09:45; Start 01/04/19 at 09:45; Stop 01/04/19 at 09:48; Status DC Cefazolin Sodium 50 ml @ 100 mls/hr 1X ONCE IV Last administered on 01/04/19 09:45; Start 01/04/19 at 09:45; Stop 01/04/19 at 10:14; Status DC Fentanyl Citrate (Fentanyl 2ml Vial) 100 mcg STK-MED ONCE .ROUTE ; Start 01/04/19 at 09:51; Stop 01/04/19 at 09:52; Status DC Fentanyl Citrate (Fentanyl 2ml Vial) 75 mcg Q1HR PRN IV PAIN Last administered on 01/05/19 09:33; Start 01/04/19 at 13:15; Stop 01/05/19 at 09:45; Status DC Levofloxacin (Levaquin) 500 mg DAILY06 PO ; Start 01/05/19 at 06:00; Stop 01/12/19 at 14:00; Status UNV Amoxicillin (Amoxil) 500 mg [id number] PO Last administered on 01/04/19 14:20; Start 01/04/19 at 14:00; Stop 01/04/19 at 15:50; Status DC Amoxicillin (Amoxil) 500 mg Q12HR PO Last administered on 01/06/19 08:24; Start 01/04/19 at 21:00; Stop 01/06/19 at 12:50; Status DC Phenazopyridine HCl (Pyridium) 200 mg PRN TID PRN PO URINARY PAIN Last administered on 01/06/19at 20:58; Start 01/05/19 at 09:30; Stop 01/08/19 at 11:50; Status DC Oxybutynin Chloride (Ditropan) 5 mg [id number] PO Last administered on 01/06/19 08:24; Start 01/05/19 at 14:00; Stop 01/06/19 at 12:50; Status DC Fentanyl Citrate (Fentanyl 2ml Vial) 75 mcg PRN Q2HR PRN IV PAIN Last administered on 01/11/19 13:47; Start 01/05/19 at 14:01; Stop 01/11/19 at 14:07; Status DC Methadone HCl (Dolophine) 20 mg TID PO Last administered on 01/07/19 08:23; Start 01/05/19 at 14:00; Stop 01/07/19 at 10:54; Status DC Fentanyl Citrate (Fentanyl 2ml Vial) 75 mcg PRN Q1HR PRN IV PAIN Last administered on 01/05/19 11:57; Start 01/05/19 at 10:00; Stop 01/05/19 at 14:01; Status DC Magnesium Sulfate 50 ml @ 25 mls/hr 1X ONCE IV Last administered on 01/05/19 11:56; Start 01/05/19 at 12:00; Stop 01/05/19 at 13:59; Status DC Potassium Chloride (Klor-Con) 20 meq 1X ONCE PO Last administered on 01/05/19at 14:47; Start 01/05/19 at 15:00; Stop 01/05/19 at 15:01; Status DC Prochlorperazine Edisylate (Compazine) 10 mg PRN Q6HRS PRN IV NAUSEA/VOMITING Last administered on 01/11/19at 19:03; Start 01/06/19 at 11:00 Oxybutynin Chloride (Ditropan) 5 mg PRN TID PRN PO BLADDER SPASM Last administered on 01/12/19at 08:36; Start 01/06/19 at 12:45; Stop 01/12/19 at 09:04; Status DC Ciprofloxacin (Cipro) 250 mg BID PO Last administered on 01/11/19at 21:24; Start 01/06/19 at 21:00; Stop 01/11/19 at 21:00; Status DC Oxycodone HCl (Roxicodone) 10 mg PRN Q3HRS PRN PO MODERATE TO SEVERE PAIN Last administered on 01/13/19at 06:57; Start 01/06/19 at 14:45 Methadone HCl (Dolophine) 10 mg TID PO Last administered on 01/10/19at 21:25; Start 01/07/19 at 14:00; Stop 01/11/19 at 14:07; Status DC Potassium Chloride (Klor-Con) 40 meq 1X ONCE PO Last administered on 01/07/19at 11:04; Start 01/07/19 at 11:00; Stop 01/07/19 at 11:01; Status DC Potassium Chloride (Klor-Con) 20 meq BID PO Last administered on 01/10/19at 09:28; Start 01/07/19 at 21:00; Stop 01/10/19 at 20:59; Status DC Magnesium Sulfate/ Dextrose 100 ml @ 100 mls/hr 1X ONCE IV Last administered on 01/07/19at 12:55; Start 01/07/19 at 13:00; Stop 01/07/19 at 13:59; Status DC Magnesium Chloride (Mag Delay) 64 mg DAILY PO ; Start 01/07/19 at 13:00; Stop 01/07/19 at 12:46; Status DC Magnesium Chloride (Mag Delay) 64 mg DAILY PO Last administered on 01/12/19at 08:25; Start 01/08/19 at 09:00; Stop 01/12/19 at 11:50; Status DC Sodium Chloride 500 ml @ 500 mls/hr 1X ONCE IV Last administered on 01/08/19at 09:30; Start 01/08/19 at 09:30; Stop 01/08/19 at 10:29; Status DC Sodium Chloride 500 ml @ 500 mls/hr PRN QID PRN IV UO< 30cc/hr over previous 6hrs; Start 01/08/19 at 14:00; Stop 01/10/19 at 08:23; Status DC Fentanyl Citrate (Fentanyl 2ml Vial) 75 mcg 1X ONCE IVP ; Start 01/08/19 at 18:30; Stop 01/08/19 at 18:31; Status DC Sodium Monofluorophosphate (Fleet Adult) 133 ml 1X ONCE [place] ; Start 01/08/19 at 18:30; Stop 01/08/19 at 18:31; Status DC Magnesium Citrate (Citroma) 296 ml 1X ONCE PO Last administered on 01/09/19at 08:40; Start 01/09/19 at 09:00; Stop 01/09/19 at 09:01; Status DC Sodium Monofluorophosphate (Fleet Adult) 133 ml 1X ONCE [place] Last administered on 01/09/19at 13:06; Start 01/09/19 at 12:00; Stop 01/09/19 at 12:01; Status DC Sodium Chloride 250 ml @ 250 mls/hr 1X ONCE IV ; Start 01/09/19 at 21:00; Stop 01/09/19 at 21:59; Status Cancel Sodium Chloride 500 ml @ 500 mls/hr 1X ONCE IV ; Start 01/09/19 at 21:00; Stop 01/09/19 at 21:59; Status DC Sodium Chloride 250 ml @ 250 mls/hr 1X ONCE IV ; Start 01/09/19 at 21:00; Stop 01/09/19 at 21:59; Status DC Docusate Sodium (Colace) 100 mg BID PO Last administered on 01/13/19at 09:02; Start 01/10/19 at 09:00 Polyethylene Glycol (miraLAX PACKET) 17 gm DAILY PO Last administered on 01/12/19at 08:25; Start 01/10/19 at 09:00 Fentanyl Citrate (Fentanyl 2ml Vial) 50 mcg PRN Q2HR PRN IV MODERATE TO SEVERE PAIN Last administered on 01/13/19at 06:57; Start 01/11/19 at 14:15 Methadone HCl (Dolophine) 7.5 mg TID PO Last administered on 01/12/19at 20:50; Start 01/11/19 at 14:15 Lidocaine HCl (Buffered Lidocaine 1%) 3 ml STK-MED ONCE .ROUTE ; Start 01/11/19 at 14:50; Stop 01/11/19 at 14:51; Status DC Iodixanol (Visipaque 320) 50 ml STK-MED ONCE .ROUTE ; Start 01/11/19 at 14:51; Stop 01/11/19 at 14:51; Status DC Midazolam HCl (Versed) 5 mg STK-MED ONCE .ROUTE ; Start 01/11/19 at 15:16; Stop 01/11/19 at 15:16; Status DC Fentanyl Citrate (Fentanyl 5ml Vial) 250 mcg STK-MED ONCE .ROUTE ; Start 01/11/19 at 15:16; Stop 01/11/19 at 15:17; Status DC Lidocaine HCl (Buffered Lidocaine 1%) 12 ml 1X ONCE IJ Last administered on 01/11/19at 16:44; Start 01/11/19 at 15:45; Stop 01/11/19 at 15:46; Status DC Midazolam HCl (Versed) 2 mg 1X ONCE IV ; Start 01/11/19 at 15:45; Stop 01/11/19 at 16:46; Status DC Fentanyl Citrate (Fentanyl 5ml Vial) 250 mcg 1X ONCE IV Last administered on 01/11/19at 16:44; Start 01/11/19 at 15:45; Stop 01/11/19 at 15:46; Status DC Iodixanol (Visipaque 320) 50 ml 1X ONCE IART Last administered on 01/11/19at 16:43; Start 01/11/19 at 15:45; Stop 01/11/19 at 15:46; Status DC Info (CONTRAST GIVEN -- Rx MONITORING) 1 each PRN DAILY PRN MC SEE COMMENTS; Start 01/11/19 at 15:45; Stop 01/13/19 at 15:44 Iodixanol (Visipaque 320) 50 ml STK-MED ONCE .ROUTE ; Start 01/11/19 at 16:09; Stop 01/11/19 at 16:09; Status DC Midazolam HCl (Versed) 5 mg 1X ONCE IV Last administered on 01/11/19at 16:45; Start 01/11/19 at 16:45; Stop 01/11/19 at 16:47; Status DC Belladonna Alkaloids/Opium (B & O) 1 supp PRN Q12HR PRN [place] BLADDER SPASM; Start 01/12/19 at 09:00; Stop 01/12/19 at 09:07; Status DC Oxybutynin Chloride (Ditropan) 5 mg [id number] PO Last administered on 01/13/19at 09:03; Start 01/12/19 at 09:00 Belladonna Alkaloids/Opium (B & O) 1 supp Q12HR TX Last administered on 01/13/19at 01:44; Start 01/12/19 at 09:15 Non-Formulary Medication 2 ea BID PO Last administered on 01/13/19at 09:04; Start 01/12/19 at 12:00 Active Scripts Active Klor-Con M20 (Potassium Chloride) 20 Meq Tab.er.prt 20 Meq PO DAILY 30 Days Polyethylene Glycol 3350 17 Gm Powd.pack 17 Gm PO PRN DAILY PRN 30 Days Colace (Docusate Sodium) 100 Mg Capsule 100 Mg PO DAILY MDD 30 30 Days Reported Keytruda (Pembrolizumab) 100 Mg/4 Ml Vial Unknown Dose IV WEEKLY Methadone Hcl 5 Mg Tablet 1.5 Tab PO Q8HRS Oxycodone Hcl 5 Mg Capsule 1-3 Tab PO PRN Q3HRS PRN Lisinopril 20 Mg Tablet 10 Mg PO DAILY Gabapentin 600 Mg Tablet 600 Mg PO BID Prevacid (Lansoprazole) 30 Mg Capsule.dr 30 Mg PO DAILY Cyclobenzaprine Hcl 10 Mg Tablet 10 Mg PO PRN TID PRN Phenergan (Promethazine HCl) 12.5 Mg Supp.rect 12.5 Mg RC PRN Q12HR PRN Ambien (Zolpidem Tartrate) 5 Mg Tablet 1 Tab PO QHS PRN Vitals/I & O Vital Sign - Last 24 Hours 01/12/19 01/12/19 01/12/19 01/12/19 11:00 11:43 12:45 15:00 Temp 98.2 98.2 Pulse 113 121 Resp 16 14 B/P (MAP) 94/57 (69) 96/49 (65) Pulse Ox 94 91 91 95 O2 Delivery Room Air Nasal Cannula Nasal Cannula Room Air O2 Flow Rate 3.0 3.0 01/12/19 01/12/19 01/12/19 01/12/19 17:06 19:00 20:00 20:49 Temp 97.8 97.8 Pulse 129 Resp 18 20 B/P (MAP) 101/37 (58) Pulse Ox 95 92 95 O2 Delivery Nasal Cannula Nasal Cannula Nasal Cannula Nasal Cannula O2 Flow Rate 3.0 2.0 3.0 3.0 01/12/19 01/13/19 01/13/19 01/13/19 21:46 01:44 02:44 03:00 Temp 97.8 97.8 Pulse 114 Resp 16 20 20 16 B/P (MAP) 109/49 (69) Pulse Ox 95 95 94 94 O2 Delivery Nasal Cannula Nasal Cannula Nasal Cannula Nasal Cannula O2 Flow Rate 3.0 3.0 2.0 2.0 01/13/19 01/13/19 01/13/19 06:57 06:57 07:20 Pulse 110 Resp 20 20 16 B/P (MAP) 110/53 (72) Pulse Ox 94 94 94 O2 Delivery Nasal Cannula Nasal Cannula Nasal Cannula O2 Flow Rate 2.0 2.0 3.0 Intake and Output 01/12/19 01/12/19 01/13/19 15:00 23:00 07:00 Intake Total 100 ml Output Total 275 ml 200 ml Balance -275 ml -200 ml 100 ml ALYSSA MARTELL MD Jan 13, 2019 09:42
[2019-01-13] MEDS ORDERED: OPIU1SUP2 PR (09:46)
--- NOTE | 2019-01-13 09:48 | SNU/HH DC ---
DISCHARGE WITH HOME HEALTH DISCHARGE INFORMATION: Condition on Discharge: Stable CODE STATUS: Code Status: DNR/DNI HOME HEALTH: Face to Face: I certify this patient is under my care and that I, or a nurse practitioner or physician's ict sales assistant working with me, had a face to face encounter that meets the physician face to face encounter requirements with this patient on []. RN For Eval/Treatment: Yes Pt Meets Homebound Status: Extreme weakness w/ amb., Limited distance walking POST DISCHARGE ORDERS: Activity Instructions for Disc: Activity as tolerated Weight Bearing Status after Di: No restrictions, As tolerated Bathing Instructions: Shower-keep dressing dry Wound/Incision Care: May get incision wet CHECKS AFTER DISCHARGE: Checks after discharge: Check blood press - daily, Check your Temp as needed Comment: nephroureteral drain FOLLOW-UP: Additional Instructions: Oxygen at 2L per NC. TREATMENT/EQUIPMENT ORDERS: Adaptive Equipment Issued: None CERTIFICATION STATEMENT: Certification Statement: Certification Statement: Based on the above finding, I certify that this patient is confined to the home and needs intermittent mcc care, physical therapy and/or speech therapy, or continues to need occupational therapy.~ This patient is under my care, and I have initiated the establishment of the plan of care.~ This patient will be followed by myself or a community physician who will periodically review the plan of care. Home Meds Active Scripts Opium/Belladonna Alkaloids (BELLADONNA-OPIUM 16.2-30 SUPP) 1 Each Supp.rect, [address] Q12HR for bladder spasm for 30 Days, #60 SUPP.RECT Prov:ALYSSA MARTELL MD 01/13/19 Polyethylene Glycol 3350 (POLYETHYLENE GLYCOL 3350) 17 Gm Powd.pack, 17 GM PO PRN DAILY PRN for CONSTIPATION for 30 Days, PKT Prov:ALYSSA MARTELL MD 11/16/18 Docusate Sodium (COLACE) 100 Mg Capsule, 100 MG PO DAILY for constipation MDD 30 for 30 Days, #30 CAP Prov:ALYSSA MARTELL MD 11/16/18 Reported Medications Methadone Hcl (METHADONE HCL) 5 Mg Tablet, 1.5 TAB PO Q8HRS for pain, #120 TAB 12/06/18 Oxycodone Hcl (OXYCODONE HCL) 5 Mg Capsule, 1-3 TAB PO PRN Q3HRS PRN for PAIN 10/04/18 Gabapentin (GABAPENTIN) 600 Mg Tablet, 600 MG PO BID for NEUROGENIC PAIN, TAB 09/08/18 Lansoprazole (PREVACID) 30 Mg Capsule.dr, 30 MG PO DAILY for gerd 05/27/18 Cyclobenzaprine Hcl (CYCLOBENZAPRINE HCL) 10 Mg Tablet, 10 MG PO PRN TID PRN for back pain, TAB 04/08/18 Promethazine HCl (Phenergan) 12.5 Mg Supp.rect, 12.5 MG RC PRN Q12HR PRN for NAUSEA, SUPP.RECT 02/09/18 Zolpidem Tartrate (AMBIEN) 5 Mg Tablet, 1 TAB PO QHS PRN for INSOMNIA 07/22/17 Discontinued Reported Medications Pembrolizumab (Keytruda) 100 Mg/4 Ml Vial, IV WEEKLY for , EACH 12/07/18 Lisinopril (LISINOPRIL) 20 Mg Tablet, 10 MG PO DAILY for FOR HYPERTENSION 09/08/18 Discontinued Scripts Potassium Chloride (KLOR-CON M20) 20 Meq Tab.er.prt, 20 MEQ PO DAILY for EDEMA for 30 Days, #30 TAB.SR Prov:WINNIE VAZ MD 12/08/18 ALYSSA MARTELL MD Jan 13, 2019 09:48
[2019-01-13 11:00] VITALS: BP 109/82
--- NOTE | 2019-01-13 11:04 | PDOC ---
SUBJECTIVE ROS s/p PCN internalization on 01/11 having bladder pain/spasms OBJECTIVE Vital Signs Vital Signs Date Time Temp Pulse Resp B/P (MAP) Pulse Ox O2 Delivery O2 Flow Rate FiO2 01/13/19 08:00 Nasal Cannula 3.0 01/13/19 07:20 110 16 110/53 (72) 94 01/13/19 03:00 97.8 97.8 I & 0 Intake and Output 01/13/19 07:00 Intake Total 100 ml Output Total 475 ml Balance -375 ml Intake Oral 100 ml Output Urine Total 200 ml Drainage Total 275 ml # Voids 4 PHYSICAL EXAM Physical Exam Gen.: NAD, HEENT: mucous membranes moist, Neck-LA diffuse greatest at left(per hem/Onc ) Lungs: CTA, Non labored CV RRR Abdomen: Soft, nd, no rebound, Extremities: No cyanosis, chronic LE edema bilateral left greater than right(Not worse per pt) Skin: No obvious rashes Neuro: Alert and oriented 3 No Mcclendon , No SP or CVA tenderness DIAGNOSIS/ASSESSMENT Assessment & Plan BRANDIN --2/2 Dehydration / Keytruda / Bilat Hydronephrosis Renal function improving - at her baseline , Labs pending today - ordered per Pts request has Bilat PCN placed 01/04 - internalized on 01/11 E-Lytes and acid base stable Lasix dced on 01/08 ,Supportive care, I/O, Monitor, daily lab CKD stage 3 -- Baseline 1.4-1.8 Follows with me as OP Hydronephrosis - Bilat Chronic Rt Moderate hydronephrosis due to LA , new Lt s/p Bilat nephrostomy on 01/04 - internalized 01/11 Microscopic hematuria- Onc and Urology following Anemia- Per Oncology Pleural effusion - On RA currently Stage IV, rapidly progressive metastatic Cervical cancer with mediastinal/SCV/cervical LNs. Performance status ECOG 4, Goal is rapid palliation of symptoms per Dr. Raines Recent rectal bleeding: was pending colonoscopy as outpatient scans suggest possible colitis UTI: UA cx w/ e faecalis, on amox Pleural effusion with atx: + cytology, retap prn COMMENT/RELEVANT DATA Meds Current Medications Medications (Trade) Dose Ordered Sig/Sanna Start Time Stop Time Status Last Admin Dose Admin Amoxicillin (Amoxil) 500 mg Q12HR 01/04/19 21:00 01/06/19 12:50 DC 01/06/19 08:24 500 MG Belladonna Alkaloids/Opium (B & O) 1 supp Q12HR 01/12/19 09:15 01/13/19 01:44 1 SUPP Cefazolin Sodium 50 ml @ 100 mls/hr 1X ONCE 01/04/19 09:45 01/04/19 10:14 DC 01/04/19 09:45 100 MLS/HR Ceftriaxone Sodium (Rocephin) 1 gm 1X ONCE 12/29/18 16:30 12/29/18 16:31 DC 12/29/18 17:01 1 GM Ciprofloxacin (Cipro) 250 mg BID 01/06/19 21:00 01/11/19 21:00 DC 01/11/19 21:24 250 MG Cyclobenzaprine HCl (Flexeril) 10 mg PRN TID PRN 12/30/18 09:00 01/11/19 19:03 10 MG Docusate Sodium (Colace) 100 mg BID 01/10/19 09:00 01/13/19 09:02 100 MG Doxycycline Hyclate 100 mg/ Dextrose 100 ml @ 50 mls/hr 1X ONCE 12/29/18 16:30 12/29/18 18:29 DC 12/29/18 17:02 50 MLS/HR Fentanyl Citrate (Fentanyl 2ml Vial) 50 mcg PRN Q2HR PRN 01/11/19 14:15 01/13/19 06:57 50 MCG Fentanyl Citrate (Fentanyl 5ml Vial) 250 mcg 1X ONCE 01/11/19 15:45 01/11/19 15:46 DC 01/11/19 16:44 250 MCG Furosemide (Lasix) 40 mg [id number] 01/01/19 11:00 01/08/19 09:09 DC 01/07/19 12:54 40 MG Gabapentin (Neurontin) 600 mg BID 12/30/18 09:00 01/13/19 09:03 600 MG Heparin Sodium (Porcine) (Heparin Sodium) 5,000 unit Q8HRS 01/03/19 14:00 Info (CONTRAST GIVEN -- Rx MONITORING) 1 each PRN DAILY PRN 01/11/19 15:45 01/13/19 15:44 Iodixanol (Visipaque 320) 50 ml STK-MED ONCE 01/11/19 16:09 01/11/19 16:09 DC Levofloxacin (Levaquin) 500 mg DAILY06 01/05/19 06:00 01/12/19 14:00 UNV Lidocaine HCl (Buffered Lidocaine 1%) 12 ml 1X ONCE 01/11/19 15:45 01/11/19 15:46 DC 01/11/19 16:44 2 ML Lisinopril (Prinivil) 2.5 mg DAILY 01/03/19 09:00 01/08/19 11:50 DC 01/07/19 08:23 2.5 MG Magnesium Chloride (Mag Delay) 64 mg DAILY 01/08/19 09:00 01/12/19 11:50 DC 01/12/19 08:25 64 MG Magnesium Citrate (Citroma) 296 ml 1X ONCE 01/09/19 09:00 01/09/19 09:01 DC 01/09/19 08:40 296 ML Magnesium Sulfate 50 ml @ 25 mls/hr 1X ONCE 01/05/19 12:00 01/05/19 13:59 DC 01/05/19 11:56 25 MLS/HR Magnesium Sulfate/ Dextrose 100 ml @ 100 mls/hr 1X ONCE 01/07/19 13:00 01/07/19 13:59 DC 01/07/19 12:55 100 MLS/HR Methadone HCl (Dolophine) 7.5 mg TID 01/11/19 14:15 01/12/19 20:50 7.5 MG Midazolam HCl (Versed) 5 mg 1X ONCE 01/11/19 16:45 01/11/19 16:47 DC 01/11/19 16:45 4 MG Non-Formulary Medication 2 ea BID 01/12/19 12:00 01/13/19 09:04 2 EA Oxybutynin Chloride (Ditropan) 5 mg [id number] 01/12/19 09:00 01/13/19 09:03 5 MG Oxycodone HCl (Roxicodone) 10 mg PRN Q3HRS PRN 01/06/19 14:45 01/13/19 06:57 10 MG Pantoprazole Sodium (Protonix) 40 mg DAILYAC 12/30/18 09:00 01/13/19 07:03 40 MG Pharmacy Consult (C.diff Med Screen By Rx) 1 each 1X ONCE 12/30/18 09:00 12/30/18 09:01 Cancel Phenazopyridine HCl (Pyridium) 200 mg PRN TID PRN 01/05/19 09:30 01/08/19 11:50 DC 01/06/19 20:58 200 MG Polyethylene Glycol (miraLAX PACKET) 17 gm DAILY 01/10/19 09:00 01/12/19 08:25 17 GM Potassium Chloride (Klor-Con) 20 meq BID 01/07/19 21:00 01/10/19 20:59 DC 01/10/19 09:28 20 MEQ Prochlorperazine Edisylate (Compazine) 10 mg PRN Q6HRS PRN 01/06/19 11:00 01/11/19 19:03 10 MG Sodium Monofluorophosphate (Fleet Adult) 133 ml 1X ONCE 01/09/19 12:00 01/09/19 12:01 DC 01/09/19 13:06 133 ML Sodium Chloride 250 ml @ 250 mls/hr 1X ONCE 01/09/19 21:00 01/09/19 21:59 DC Zolpidem Tartrate (Ambien) 5 mg QHS PRN 12/30/18 09:00 01/12/19 20:50 5 MG Results All relevant outside records, renal labs, imaging studies, telemetry/EKG's were reviewed. ILIR CHICAS MD Jan 13, 2019 11:04
--- NOTE | 2019-01-13 11:10 | NUR ---
SS following up with discharge planning. SS received discharge orders and referral for palliative home healthcare. SS met with pt and family in room and discussed. Pt and family requested palliative care. SS phoned and faxed discharge ordered and referral to palliative care, ; fax [phone]. RN concerned with oxygen. Pt was at 84% on room air this morning. Pt passed 6 minute walk yesterday. New 6 minute walk ordered. Per oxygen company even with private insurance medical documentation would need to be provided showing that pt qualifies for oxygen at 88% or less. SS will continue to follow for discharge planning.
--- NOTE | 2019-01-13 11:28 | NUR ---
SS following up with discharge planning. SS met with pt and personal injury attorney in room and notarized power of personal injury attorney paperwork as requested.
[2019-01-13 14:42] LABS: CALCIUM 11.1 mg/dL (8.5-10.1); CREATININE 1.8 mg/dL (0.6-1.0); GFR 31.5; POTASSIUM 4.3 mmol/L (3.5-5.1)
[2019-01-13 15:00] VITALS: BP 112/85
--- NOTE | 2019-01-13 16:19 | NUR ---
SS following up with discharge planning. Six minute walk redone and pt now qualifying for oxygen. SS phoned and faxed script and referral for oxygen to [facility], ; fax [phone]. Oxygen tank provided to pt and family. SS spoke with Anthony from [facility] and confirmed receipt of order. Pt's RN notified.
--- NOTE | 2019-01-13 16:25 | PDOC ---
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 Has received 4 days of pall RT to cervical supraclav and upper mediastinal nodes. Last dose was 8 Gy bringing total dose to 15.5 Gy. Sleeping now after exercise test revealed hypoxia and will go home on . Asleep now with plan to get tonight and then likely DC. Will plan to see her in FU in 1 month to assess response to palliative radiation. COLETTE MOODY MD Jan 13, 2019 16:25
[2019-01-13] MEDS ORDERED: HEPARIN PF 500 UNIT/5 ML DISP.SYRIN. IVP ONE (17:30)
[2019-01-13 17:42] LABS: BASO % 1 % (0-3); EOS # 0.1 x10^3/uL (0.0-0.7); EOS % 2 % (0-3); HEMATOCRIT 22.5 % (36.0-47.0); HEMOGLOBIN 7.2 g/dL (12.0-15.5); LYMPH # 0.3 x10^3/uL (1.0-4.8); LYMPH % 6 % (24-48); MEAN CORPUSCULAR HEMOGLOBIN 26 pg (25-35); MEAN CORPUSCULAR HGB CONC 32 g/dL (31-37); MEAN CORPUSCULAR VOLUME 82 fL (79-100); MONO # 0.5 x10^3/uL (0.0-1.1); MONO % 8 % (0-9); NEUT # 4.6 x10^3/uL (1.8-7.7); NEUT % 83 % (31-73); PLATELET COUNT 186 x10^3/uL (140-400); RED BLOOD COUNT 2.74 x10^6/uL (3.50-5.40); RED CELL DISTRIBUTION WIDTH 18.6 % (11.5-14.5); WHITE BLOOD COUNT 5.5 x10^3/uL (4.0-11.0)
--- NOTE | 2019-01-13 18:22 | EKG ---
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
--- NOTE | 2019-01-13 19:27 | NUR ---
Pt discharged home with home health. Discharge instructions discussed with spouse. Port de-accessed. Pain meds administered. Pt assisted to wheelchair and was taken to main entrance by friends.
--- NOTE | 2019-01-14 11:47 | DS ---
DATE OF DISCHARGE: 01/13/2019 CHIEF COMPLAINT: Renal failure. HISTORY OF PRESENT ILLNESS: The patient is a 38-year-old female with metastatic cervical cancer who was on treatment with Keytruda. She was sent to the Emergency Room by Dr. Raines after lab at Dr. Raines' office showed the patient's creatinine to be significantly elevated. The patient has a history of chronic kidney disease stage 3 from her known right hydronephrosis due to pelvic lymphadenopathy. Initial lab in the Emergency Room showed a creatinine of 3.7 and the patient was admitted for further care. HOSPITAL COURSE: A CT at admission showed her known right hydronephrosis, but also some mild left pelvocaliectasis which was new. It was not clear whether this change was sufficient to elevate her creatinine. She was given IV fluids. She was seen in consultation by Urology and Nephrology. Her labs improved somewhat with conservative care. She had the placement of bilateral nephrostomy tubes by Interventional Radiology and her renal function continued to improve after this. Her creatinine eventually returned to her baseline of chronic kidney disease, stage 3. On 01/11/2019, Dr. Crocker converted her nephrostomy tubes to nephroureteral catheters in preparation for discharge. The patient has some chronic intermittent bladder spasms, felt to be due to the metastatic cancer that is present in the trigone area of the bladder. She has been tried on various medications in the past for this, which were not helpful. She was started on B & O suppositories and she reported that these seem to help her discomfort a lot and so these were continued. Urine culture from admission was eventually positive for streptococcus species and Enterococcus faecalis. The patient received treatment with 5 days of IV Cipro for this. Blood cultures were without growth. The patient was found to have a left pleural effusion at admission, which was new for her. She eventually underwent a thoracentesis for treatment of this. 900 mL of fluid was removed. Pathology report from this did show metastatic cancer. She remained intermittently hypoxic even after the thoracentesis, but this was well treated with oxygen per nasal cannula as needed. Follow up chest x-rays showed a persistent, but not worsening left pleural effusion. The patient was seen by Dr. Samuel, who recommended palliative radiation treatment to her mediastinal and cervical malignant lymphadenopathy. The patient seemed to be experiencing some discomfort due to this and Dr. Samuel felt that radiation could be helpful in palliating this. The patient had several radiation treatments while hospitalized and Dr. Samuel did not recommend further treatment at this time. The patient's chronic pain from her metastatic cancer was treated with oral and IV medication and she appeared fairly comfortable with this. The patient was seen by the palliative care team for further discussion of goals of care. There is no further chemotherapy planned at this time, as she has had progression of disease on the Keytruda. The patient did not want hospice care yet, but agreed to palliative home health. She was also made a DNR per her request. She and her partner were in the [facility] on 01/13/2019 and the patient was then discharged home. FINAL DIAGNOSES: 1. Acute renal failure. 2. Chronic kidney disease, stage 3. 3. Metastatic cervical cancer. 4. Urinary tract infection. 5. Malignant pleural effusion with hypoxia. 6. Hydronephrosis. DISCHARGE MEDICATIONS: B & O suppositories q. 12 hours p.r.n., Flexeril 10 mg t.i.d. p.r.n., Colace 100 mg daily, MiraLax 17 grams daily, gabapentin 600 mg b.i.d., Prevacid 30 mg daily, methadone 5 mg 1-1/2 tablets q. 8 hours, oxycodone 5 mg 1-3 tabs q. 3 hours p.r.n., zolpidem 5 mg at bedtime p.r.n. The patient's lisinopril was discontinued as she is no longer hypertensive. Palliative home health was ordered. Follow up with Dr. Bowman as needed. ALYSSA BOWMAN MD DR: HARJIT/kristopher JOB#: [id number] / [id number] BENIGNO
== END 2019-01-13 20:00 | disposition home health service (06) | DRG 683 ==
LOC: ER 13:37 → 4 NORTH 16:30
PROVIDERS: ADMIT Family Medicine; ATTEND Family Medicine
PROC: 30233N1 Transfusion of Nonautologous Red Blood Cells into Peripheral Vein, Percutaneous Approach (ICD-10-PCS; principal; 2018-12-29)
PROC: 0W9B3ZZ Drainage of Left Pleural Cavity, Percutaneous Approach (ICD-10-PCS; 2018-12-31)
PROC: 0T9130Z Drainage of Left Kidney with Drainage Device, Percutaneous Approach (ICD-10-PCS; 2019-01-04)
PROC: 0T9030Z Drainage of Right Kidney with Drainage Device, Percutaneous Approach (ICD-10-PCS; 2019-01-04)
DX: N17.9 Acute kidney failure, unspecified (principal); J98.11 Atelectasis; C77.9 Secondary and unspecified malignant neoplasm of lymph node, unspecified; J91.0 Malignant pleural effusion; C79.11 Secondary malignant neoplasm of bladder; N13.6 Pyonephrosis; C53.9 Malignant neoplasm of cervix uteri, unspecified; D64.9 Anemia, unspecified; E86.1 Hypovolemia; G89.29 Other chronic pain; I12.9 Hypertensive chronic kidney disease with stage 1 through stage 4 chronic kidney disease, or unspecified chronic kidney disease; K21.9 Gastro-esophageal reflux disease without esophagitis; K59.00 Constipation, unspecified; N18.3 Chronic kidney disease, stage 3 (moderate); N28.89 Other specified disorders of kidney and ureter; N32.89 Other specified disorders of bladder; R09.02 Hypoxemia; Z66 Do not resuscitate; Z80.49 Family history of malignant neoplasm of other genital organs; Z82.49 Family history of ischemic heart disease and other diseases of the circulatory system; Z85.41 Personal history of malignant neoplasm of cervix uteri; Z87.891 Personal history of nicotine dependence; Z90.710 Acquired absence of both cervix and uterus; Z92.3 Personal history of irradiation; Z99.81 Dependence on supplemental oxygen
CPT/HCPCS: 32555; 36415; 50432; 50434; 71045; 71046; 72125; 74176; 77290; 77295; 77300; 77334; 77336; 77412; 78582; 80048; 80053; 81001; 83605; 83735; 85007; 85025; 85027; 85610; 86850; 86900; 86901; 86920; 87040; 87086; 87186; 88112; 88305; 93005; 94618; 96374; 99152; 99153; A9540; A9558; C1713; C1729; C1769; C1892; C1894; J0690; J0696; J0780; J2250; J3010; J3475; J3490; J7030; J7040; P9016; Q9967; G0378

== ENCOUNTER 2019-01-14 02:57 | Inpatient (IN) | payer OTHER ==
[~2019-01-14] VITALS: Ht 167.6 cm; Wt 90.7 kg
[~2019-01-14 02:57] MED LIST changes: +OPIU1SUP2 PR
[2019-01-14] MEDS ORDERED: 0.9 % SOD CHL for STERILE FIELD 10 ML DISP.SYRIN. ONE (03:13)
[2019-01-14] MEDS ORDERED: IV NORMAL SALINE 1000ML BAG 1,000 ML IV ONE ×2 (04:00→06:45)
[2019-01-14] MEDS ORDERED: ONDANSETRON PF 4 MG/2 ML VIAL. IV ONE (04:00)
[2019-01-14] MEDS ORDERED: LIDOCAINE 1% Multi-Dose 20 ML VIAL. INJ ONE (04:00)
[2019-01-14 04:01] LABS: BASO % 0 % (0-3); EOS # 0.1 x10^3/uL (0.0-0.7); EOS % 1 % (0-3); HEMATOCRIT 23.2 % (36.0-47.0); HEMOGLOBIN 7.5 g/dL (12.0-15.5); LYMPH # 0.3 x10^3/uL (1.0-4.8); LYMPH % 3 % (24-48); MEAN CORPUSCULAR HEMOGLOBIN 26 pg (25-35); MEAN CORPUSCULAR HGB CONC 32 g/dL (31-37); MEAN CORPUSCULAR VOLUME 81 fL (79-100); MONO # 0.5 x10^3/uL (0.0-1.1); MONO % 7 % (0-9); NEUT # 6.6 x10^3/uL (1.8-7.7); NEUT % 89 % (31-73); PLATELET COUNT 192 x10^3/uL (140-400); RED BLOOD COUNT 2.87 x10^6/uL (3.50-5.40); RED CELL DISTRIBUTION WIDTH 18.4 % (11.5-14.5); WHITE BLOOD COUNT 7.4 x10^3/uL (4.0-11.0)
[2019-01-14 04:14] LABS: ALBUMIN 1.9 g/dL (3.4-5.0); ALBUMIN/GLOBULIN RATIO 0.4 (1.0-1.7); CREATININE 1.9 mg/dL (0.6-1.0); GFR 29.6; POTASSIUM 4.1 mmol/L (3.5-5.1); TOTAL BILIRUBIN 0.4 mg/dL (0.2-1.0)
[2019-01-14 04:19] LABS: CALCIUM 12.2 mg/dL (8.5-10.1)
[2019-01-14 04:24] LABS: % BANDS 1 % (0-9); % LYMPHS 6 % (24-48); % MONOS 3 % (0-10); % SEGS 90 % (35-66); ANISOCYTOSIS SLIGHT; HYPOCHROMIA SLIGHT; PLT ESTIMATE ADEQUATE (ADEQUATE)
[2019-01-14] MEDS ORDERED: MORPHINE SULFATE 4 MG/ML VIAL. IV ONE (04:45)
[2019-01-14] MEDS ORDERED: fentaNYL PF VIAL 100 MCG/2 ML VIAL IVP ONE ×2 (05:00→05:30)
--- NOTE | 2019-01-14 05:53 | RAD ---
Chest AP portable at 0447: Reason for examination: Cough. Port-A-Cath is present on the right with the tip in the superior vena cava/right atrial junction region. NG tube is present with the tip and side port in the stomach. The heart size is normal. Mediastinum is unremarkable. Lung ervin show infiltrate and moderate pleural fluid at the left lung base. There is atelectasis at the right lung base. No acute bony abnormalities are seen. Impression: Infiltrate with moderate pleural effusion at the left lung base. Atelectasis at the right lung base. CT abdomen pelvis without contrast: Reason for examination: Possible bowel obstruction. History of uterine cancer. Helical images were obtained through the abdomen and pelvis with no intravenous or oral contrast administered. Reconstruction was performed in sagittal and coronal planes. Exposure: One or more of the following individualized dose reduction techniques were utilized for this examination: 1. Automated exposure control 2. Adjustment of the mA and/or kV according to patient size 3. Use of iterative reconstruction technique. The lung bases show atelectasis at the right lung base. There are infiltrates and a moderate pleural effusion at the left lung base. The heart size is normal with no pericardial effusion. No abnormality seen at the liver, spleen, gallbladder, adrenal glands or pancreas. The abdominal aorta and inferior vena cava show no acute abnormalities. NG tube is present in the stomach. The stomach is not distended. No abnormality seen at the duodenum. The small intestinal tract however is dilated without wall thickening down to the right lower quadrant. The colon does not appear distended and there is no evidence of diverticulosis or diverticulitis. The kidneys show bilateral ureteral stents and nephrostomy tubes. There is prominence of the renal pelvis bilaterally. There is abnormal soft tissue density within the mesentery especially in the anterior pelvis. This probably represents mesenteric metastases. The bladder is not distended. Uterus is surgically absent. Diffuse soft tissue edema is seen. No acute bony abnormalities are seen. IMPRESSION: Atelectasis at the right lung base. Infiltrate and moderate pleural fluid at the left lung base. Distended small bowel probably reflect at least partial obstruction down to the right lower quadrant. Abnormal density within the mesentery especially in the anterior pelvis which probably reflects metastasis. Bilateral ureteral stents but prominence of the renal pelvis bilaterally consistent with hydronephrosis. Diffuse soft tissue edema. Electronically signed by: Latisha Altamirano MD (01/14/2019 5:50 AM) [facility]
--- NOTE | 2019-01-14 06:07 | PHYS DOC ---
Past Medical History Past Medical History: Anemia, Cancer, Other Additional Past Medical Histor: CERVICAL CANCER WITH METASTISIS Past Surgical History: Hysterectomy, Other Additional Past Surgical Histo: Port placement Alcohol Use: Rarely Drug Use: None Adult General Chief Complaint Chief Complaint: ABDOMINAL PAIN HPI HPI 38 yo female with known history of metastatic cervical cancer presents to the ER with abdominal pain, distention, nausea, vomiting of feculent material. Patient was just dc from [facility] late yesterday evening. Patient denies any fever. She does have some sob, abdominal pain, nausea, vomiting. Given the vomitus she presented to the ER for further evaluation. Review of Systems Review of Systems Constitutional: Denies fever or chills [] Respiratory:+sob, cough Cardiovascular: No additional information not addressed in HPI [] GI: + abdominal pain, nausea, vomiting, + constipation : Denies dysuria or hematuria [] Musculoskeletal: chronic pain Integument: Denies rash or skin lesions [] Neurologic: Denies headache, focal weakness or sensory changes [] All other systems were reviewed and found to be within normal limits, except as documented in this note. Current Medications Current Medications Current Medications Medications (Trade) Dose Ordered Sig/Sanna Start Time Stop Time Status Last Admin Dose Admin Lidocaine HCl (Lidocaine 1% 20ml Vial) 20 ml 1X ONCE 01/14/19 04:00 01/14/19 04:01 DC 01/14/19 04:28 20 ML Ondansetron HCl (Zofran) 4 mg 1X ONCE 01/14/19 04:00 01/14/19 04:02 DC Sodium Chloride 1,000 ml @ 1,000 mls/hr 1X ONCE 01/14/19 04:00 01/14/19 04:59 DC 01/14/19 04:23 1,000 MLS/HR Sodium Chloride (NORMAL SALINE FLUSH for STERILE FIELD) 10 ml STK-MED ONCE 01/14/19 03:13 01/14/19 03:13 DC Allergies Allergies Allergies Coded Allergies Type Severity Reaction Last Updated Verified shrimp Allergy Severe mouth sore 12/21/18 Yes ondansetron Adverse Reaction Severe 12/21/18 Yes Physical Exam Physical Exam Constitutional: Well developed, well nourished, no acute distress, non-toxic appearance. [] HENT: Normocephalic, atraumatic, bilateral external ears normal, oropharynx moist, no oral exudates, nose normal. [] Eyes: PERRLA, EOMI, conjunctiva normal, no discharge. [] Neck: Normal range of motion, no tenderness, supple, no stridor. [] Cardiovascular:Heart rate regular rhythm, no murmur [] Lungs & Thorax: Bilateral breath sounds clear to auscultation [] Abdomen: Bowel sounds normal, soft, no tenderness, no masses, no pulsatile masses. [] Skin: Warm, dry, no erythema, no rash. [] Back: No tenderness, no CVA tenderness. [] Extremities: No tenderness, no cyanosis, no clubbing, ROM intact, no edema. [] Neurologic: Alert and oriented X 3, normal motor function, normal sensory function, no focal deficits noted. [] Psychologic: Affect normal, judgement normal, mood normal. [] Current Patient Data Vital Signs Vital Signs Date Time Temp Pulse Resp B/P (MAP) Pulse Ox O2 Delivery O2 Flow Rate FiO2 01/14/19 04:00 114 24 112/59 (76) 92 Nasal Cannula 2.0 01/14/19 03:03 98.3 98.3 Lab Values Laboratory Tests Test 01/14/19 03:35 White Blood Count 7.4 x10^3/uL (4.0-11.0) Red Blood Count 2.87 x10^6/uL (3.50-5.40) L Hemoglobin 7.5 g/dL (12.0-15.5) L Hematocrit 23.2 % (36.0-47.0) L Mean Corpuscular Volume 81 fL (79-100) Mean Corpuscular Hemoglobin 26 pg (25-35) Mean Corpuscular Hemoglobin Concent 32 g/dL (31-37) Red Cell Distribution Width 18.4 % (11.5-14.5) H Platelet Count 192 x10^3/uL (140-400) Neutrophils (%) (Auto) 89 % (31-73) H Lymphocytes (%) (Auto) 3 % (24-48) L Monocytes (%) (Auto) 7 % (0-9) Eosinophils (%) (Auto) 1 % (0-3) Basophils (%) (Auto) 0 % (0-3) Neutrophils # (Auto) 6.6 x10^3/uL (1.8-7.7) Lymphocytes # (Auto) 0.3 x10^3/uL (1.0-4.8) L Monocytes # (Auto) 0.5 x10^3/uL (0.0-1.1) Eosinophils # (Auto) 0.1 x10^3/uL (0.0-0.7) Basophils # (Auto) 0.0 x10^3/uL (0.0-0.2) Segmented Neutrophils % 90 % (35-66) H Band Neutrophils % 1 % (0-9) Lymphocytes % 6 % (24-48) L Monocytes % 3 % (0-10) Platelet Estimate Adequate (ADEQUATE) Hypochromasia Slight Anisocytosis Slight Sodium Level 132 mmol/L (136-145) L Potassium Level 4.1 mmol/L (3.5-5.1) Chloride Level 97 mmol/L (98-107) L Carbon Dioxide Level 27 mmol/L (21-32) Anion Gap 8 (6-14) Blood Urea Nitrogen 29 mg/dL (7-20) H Creatinine 1.9 mg/dL (0.6-1.0) H Estimated GFR (Cockcroft-Gault) 29.6 BUN/Creatinine Ratio 15 (6-20) Glucose Level 106 mg/dL (70-99) H Calcium Level 12.2 mg/dL (8.5-10.1) *H Total Bilirubin 0.4 mg/dL (0.2-1.0) Aspartate Amino Transferase (AST) 29 U/L (15-37) Alanine Aminotransferase (ALT) 6 U/L (14-59) L Alkaline Phosphatase 115 U/L (46-116) Total Protein 7.0 g/dL (6.4-8.2) Albumin 1.9 g/dL (3.4-5.0) L Albumin/Globulin Ratio 0.4 (1.0-1.7) L Laboratory Tests 01/14/19 03:35 Laboratory Tests 01/14/19 03:35 EKG EKG [] Radiology/Procedures Radiology/Procedures [] Course & Med Decision Making Course & Med Decision Making Pertinent Labs and Imaging studies reviewed. (See chart for details) []38 yo female with known history of metastatic cervical cancer presents to the ER with abdominal pain, distention, nausea, vomiting of feculent material. Patient was just dc from [facility] late yesterday evening. Patient denies any fever. She does have some sob, abdominal pain, nausea, vomiting. Given the vomitus she presented to the ER for further evaluation. Patient presented with above symptoms. Concerned of obstructive process on initial evaluation Discussed with patient NGT and plan for CT evaluation - given feculent material, SBO until proven otherwise Labs reviewed with patient Imaging reviewed, evidence of pSBO appreciated, she as well has left pleural effusion which has been recurrent Kidney function stable at this time Discussed admit with patient/family at bedside Will plan admit and further observation Dragon Disclaimer Dragon Disclaimer This electronic medical record was generated, in whole or in part, using a voice recognition dictation system. Departure Departure Impression: Primary Impression: Partial small bowel obstruction Additional Impressions: Anemia Pleural effusion Disposition: ADMITTED INPATIENT Admitting Physician: Ju Archer Condition: STABLE Referrals: ALYSSA MARTELL MD (PCP) Problem Qualifiers Additional Impressions: Anemia Anemia type: unspecified type Qualified Codes: D64.9 - Anemia, unspecified ANNA NEIL MD Jan 14, 2019 06:07
[2019-01-14] MEDS ORDERED: ONDANSETRON PF 4 MG/2 ML VIAL. IV PRN (06:15)
[2019-01-14] MEDS: fentaNYL PF VIAL 100 MCG/2 ML VIAL IV PRN ×12 (08:16→21:30)
--- NOTE | 2019-01-14 08:57 | PDOC ---
PROGRESS NOTES Subjective Subjective Patient sleepy but easily awakened, resting comfortably in bed. Objective Objective Vital Signs Date Time Temp Pulse Resp B/P (MAP) Pulse Ox O2 Delivery O2 Flow Rate FiO2 01/14/19 08:16 90 2.0 01/14/19 07:07 102 18 110/59 (76) Nasal Cannula 01/14/19 03:03 98.3 98.3 Intake and Output 01/14/19 07:00 Intake Total 1000 ml Balance 1000 ml Intake IV Total 1000 ml Physical Exam Abdomen: Soft, Other (few BS heard) Heart: Regular rate Extremities: Other (mild chronic lymphedema bilateral LE's) General: No acute distress Lungs: Other (BS decreased L base, few crackles R base) Assessment Assessment Problems Medical Problems: (1) Pleural effusion Status: Acute (2) Small bowel obstruction Status: Acute Plan Plan of Care 1. Partial SBO - emesis resolved with NG tube. Continue NPO with IVF and await return of bowel function. 2. metastatic cervical cancer - progressing. Patient now DNR per her request. Continue IV pain medication for now and resume po when able to tolerate. 3. CKD III with chronic hydronephrosis - lab stable, patient has bilateral internal nephrostomy tubes placed during last hospitalization. B&O suppositories as needed for bladder spasms. 4. malignant L pleural effusion - stable on CXR. Had thoracentesis last hospitalization. Continue O2 as needed. 5. anemia - Hgb 7.5 today, follow lab and transfuse if indicated. Comment Review of Relevant I have reviewed the following items heather (where applicable) has been applied. Labs Laboratory Tests Test 01/14/19 03:35 01/14/19 05:05 White Blood Count 7.4 x10^3/uL (4.0-11.0) Red Blood Count 2.87 x10^6/uL (3.50-5.40) Hemoglobin 7.5 g/dL (12.0-15.5) Hematocrit 23.2 % (36.0-47.0) Mean Corpuscular Volume 81 fL (79-100) Mean Corpuscular Hemoglobin 26 pg (25-35) Mean Corpuscular Hemoglobin Concent 32 g/dL (31-37) Red Cell Distribution Width 18.4 % (11.5-14.5) Platelet Count 192 x10^3/uL (140-400) Neutrophils (%) (Auto) 89 % (31-73) Lymphocytes (%) (Auto) 3 % (24-48) Monocytes (%) (Auto) 7 % (0-9) Eosinophils (%) (Auto) 1 % (0-3) Basophils (%) (Auto) 0 % (0-3) Neutrophils # (Auto) 6.6 x10^3/uL (1.8-7.7) Lymphocytes # (Auto) 0.3 x10^3/uL (1.0-4.8) Monocytes # (Auto) 0.5 x10^3/uL (0.0-1.1) Eosinophils # (Auto) 0.1 x10^3/uL (0.0-0.7) Basophils # (Auto) 0.0 x10^3/uL (0.0-0.2) Segmented Neutrophils % 90 % (35-66) Band Neutrophils % 1 % (0-9) Lymphocytes % 6 % (24-48) Monocytes % 3 % (0-10) Platelet Estimate Adequate (ADEQUATE) Hypochromasia Slight Anisocytosis Slight Sodium Level 132 mmol/L (136-145) Potassium Level 4.1 mmol/L (3.5-5.1) Chloride Level 97 mmol/L (98-107) Carbon Dioxide Level 27 mmol/L (21-32) Anion Gap 8 (6-14) Blood Urea Nitrogen 29 mg/dL (7-20) Creatinine 1.9 mg/dL (0.6-1.0) Estimated GFR (Cockcroft-Gault) 29.6 BUN/Creatinine Ratio 15 (6-20) Glucose Level 106 mg/dL (70-99) Calcium Level 12.2 mg/dL (8.5-10.1) Total Bilirubin 0.4 mg/dL (0.2-1.0) Aspartate Amino Transf (AST/SGOT) 29 U/L (15-37) Alanine Aminotransferase (ALT/SGPT) 6 U/L (14-59) Alkaline Phosphatase 115 U/L (46-116) Total Protein 7.0 g/dL (6.4-8.2) Albumin 1.9 g/dL (3.4-5.0) Albumin/Globulin Ratio 0.4 (1.0-1.7) Lactic Acid Level 0.8 mmol/L (0.4-2.0) Laboratory Tests Test 01/14/19 03:35 01/14/19 05:05 White Blood Count 7.4 x10^3/uL (4.0-11.0) Red Blood Count 2.87 x10^6/uL (3.50-5.40) Hemoglobin 7.5 g/dL (12.0-15.5) Hematocrit 23.2 % (36.0-47.0) Mean Corpuscular Volume 81 fL (79-100) Mean Corpuscular Hemoglobin 26 pg (25-35) Mean Corpuscular Hemoglobin Concent 32 g/dL (31-37) Red Cell Distribution Width 18.4 % (11.5-14.5) Platelet Count 192 x10^3/uL (140-400) Neutrophils (%) (Auto) 89 % (31-73) Lymphocytes (%) (Auto) 3 % (24-48) Monocytes (%) (Auto) 7 % (0-9) Eosinophils (%) (Auto) 1 % (0-3) Basophils (%) (Auto) 0 % (0-3) Neutrophils # (Auto) 6.6 x10^3/uL (1.8-7.7) Lymphocytes # (Auto) 0.3 x10^3/uL (1.0-4.8) Monocytes # (Auto) 0.5 x10^3/uL (0.0-1.1) Eosinophils # (Auto) 0.1 x10^3/uL (0.0-0.7) Basophils # (Auto) 0.0 x10^3/uL (0.0-0.2) Segmented Neutrophils % 90 % (35-66) Band Neutrophils % 1 % (0-9) Lymphocytes % 6 % (24-48) Monocytes % 3 % (0-10) Platelet Estimate Adequate (ADEQUATE) Hypochromasia Slight Anisocytosis Slight Sodium Level 132 mmol/L (136-145) Potassium Level 4.1 mmol/L (3.5-5.1) Chloride Level 97 mmol/L (98-107) Carbon Dioxide Level 27 mmol/L (21-32) Anion Gap 8 (6-14) Blood Urea Nitrogen 29 mg/dL (7-20) Creatinine 1.9 mg/dL (0.6-1.0) Estimated GFR (Cockcroft-Gault) 29.6 BUN/Creatinine Ratio 15 (6-20) Glucose Level 106 mg/dL (70-99) Calcium Level 12.2 mg/dL (8.5-10.1) Total Bilirubin 0.4 mg/dL (0.2-1.0) Aspartate Amino Transf (AST/SGOT) 29 U/L (15-37) Alanine Aminotransferase (ALT/SGPT) 6 U/L (14-59) Alkaline Phosphatase 115 U/L (46-116) Total Protein 7.0 g/dL (6.4-8.2) Albumin 1.9 g/dL (3.4-5.0) Albumin/Globulin Ratio 0.4 (1.0-1.7) Lactic Acid Level 0.8 mmol/L (0.4-2.0) Medications Current Medications Sodium Chloride (NORMAL SALINE FLUSH for STERILE FIELD) 10 ml STK-MED ONCE .ROUTE ; Start 01/14/19 at 03:13; Stop 01/14/19 at 03:13; Status DC Lidocaine HCl (Lidocaine 1% 20ml Vial) 20 ml 1X ONCE INJ Last administered on 01/14/19at 04:28; Start 01/14/19 at 04:00; Stop 01/14/19 at 04:01; Status DC Sodium Chloride 1,000 ml @ 1,000 mls/hr 1X ONCE IV Last administered on 01/14/19at 04:23; Start 01/14/19 at 04:00; Stop 01/14/19 at 04:59; Status DC Ondansetron HCl (Zofran) 4 mg 1X ONCE IV ; Start 01/14/19 at 04:00; Stop 01/14/19 at 04:02; Status DC Morphine Sulfate (Morphine Sulfate) 4 mg 1X ONCE IV ; Start 01/14/19 at 04:45; Stop 01/14/19 at 05:02; Status DC Fentanyl Citrate (Fentanyl 2ml Vial) 75 mcg 1X ONCE IVP Last administered on 01/14/19at 04:45; Start 01/14/19 at 05:00; Stop 01/14/19 at 05:02; Status DC Fentanyl Citrate (Fentanyl 2ml Vial) 75 mcg 1X ONCE IVP Last administered on 01/14/19at 05:32; Start 01/14/19 at 05:30; Stop 01/14/19 at 05:31; Status DC Ondansetron HCl (Zofran) 4 mg PRN Q8HRS PRN IV NAUSEA/VOMITING; Start 01/14/19 at 06:15; Stop 01/14/19 at 08:50; Status DC Fentanyl Citrate (Fentanyl 2ml Vial) 50 mcg PRN Q1HR PRN IV PAIN Last administered on 01/14/19at 08:16; Start 01/14/19 at 06:15; Stop 01/15/19 at 06:14 Sodium Chloride 1,000 ml @ 25 mls/hr 1X ONCE IV ; Start 01/14/19 at 06:45; Stop 01/15/19 at 22:44 Sodium Chloride 1,000 ml @ 75 mls/hr [id number] IV ; Start 01/14/19 at 09:00 Active Scripts Active Belladonna-Opium 16.2-30 Supp (Opium/Belladonna Alkaloids) 1 Each Supp.rect 1 Supp PA Q12HR 30 Days Polyethylene Glycol 3350 17 Gm Powd.pack 17 Gm PO PRN DAILY PRN 30 Days Colace (Docusate Sodium) 100 Mg Capsule 100 Mg PO DAILY MDD 30 30 Days Reported Methadone Hcl 5 Mg Tablet 1.5 Tab PO Q8HRS Oxycodone Hcl 5 Mg Capsule 1-3 Tab PO PRN Q3HRS PRN Gabapentin 600 Mg Tablet 600 Mg PO BID Prevacid (Lansoprazole) 30 Mg Capsule.dr 30 Mg PO DAILY Cyclobenzaprine Hcl 10 Mg Tablet 10 Mg PO PRN TID PRN Phenergan (Promethazine HCl) 12.5 Mg Supp.rect 12.5 Mg RC PRN Q12HR PRN Ambien (Zolpidem Tartrate) 5 Mg Tablet 1 Tab PO QHS PRN Vitals/I & O Vital Sign - Last 24 Hours 01/14/19 01/14/19 01/14/19 01/14/19 03:03 03:30 04:00 04:45 Temp 98.3 98.3 Pulse 113 108 114 Resp 20 18 24 18 B/P (MAP) 116/60 (78) 105/60 (75) 112/59 (76) Pulse Ox 92 92 97 O2 Delivery Room Air Nasal Cannula Nasal Cannula Nasal Cannula O2 Flow Rate 2.0 2.0 2.0 01/14/19 01/14/19 01/14/19 01/14/19 05:00 05:32 05:37 06:07 Pulse 106 104 104 Resp 23 16 18 18 B/P (MAP) 113/63 (80) 108/62 (77) 102/59 (73) Pulse Ox 92 91 92 89 O2 Delivery Nasal Cannula Room Air Room Air Nasal Cannula O2 Flow Rate 2.0 2.0 01/14/19 01/14/19 01/14/19 06:37 07:07 08:16 Pulse 100 102 Resp 18 18 B/P (MAP) 113/65 (81) 110/59 (76) Pulse Ox 90 90 90 O2 Delivery Nasal Cannula Nasal Cannula O2 Flow Rate 2.0 2.0 2.0 Intake and Output 01/13/19 01/13/19 01/14/19 15:00 23:00 07:00 Intake Total 1000 ml Balance 1000 ml ALYSSA MARTELL MD Jan 14, 2019 08:57
[2019-01-14] MEDS ORDERED: PROMETHAZINE 12.5 MG SUPP.RECT. RC PRN (09:00)
[2019-01-14] MEDS: OPIUM/BELLADONNA 30/16.2MG SUPP.RECT. PR SCH ×2 (09:23→20:32)
[2019-01-14] MEDS: IV NORMAL SALINE 1000ML BAG 1,000 ML IV SCH ×3 (09:23→22:20)
--- NOTE | 2019-01-14 09:23 | HP ---
ADMIT DATE: 01/14/2019 INTERIM HISTORY AND PHYSICAL CHIEF COMPLAINT: Emesis. HISTORY OF PRESENT ILLNESS: The patient is a 38-year-old female with metastatic cervical cancer who was just discharged from [facility] on 01/13/2019 after treatment for hydronephrosis, pleural effusion, and other complications of her cancer. She was discharged home with palliative home health on the evening of 01/13/2019. She had the onset of emesis shortly after discharge and it continued after she returned home. She presented to the Emergency Room. CT and KUB were done and these showed a partial small-bowel obstruction. An NG tube was placed and the patient was admitted for further care. PAST MEDICAL HISTORY: Metastatic cervical cancer, malignant pleural effusion, hydronephrosis, chronic kidney disease stage 3, chronic anemia. PAST SURGICAL HISTORY: TAHBSO. ALLERGIES: THE PATIENT IS ALLERGIC TO ZOFRAN. HOME MEDICATIONS: Gabapentin 600 mg b.i.d., Prevacid 30 mg daily, methadone 5 mg 1-1/2 tablet q. 8 hours, oxycodone 5 mg 1-3 q. 3 hours p.r.n., MiraLax daily, Colace daily, Phenergan suppository p.r.n., Ambien 5 mg at bedtime, B and O suppositories p.r.n. bladder spasm. FAMILY HISTORY: Noncontributory. SOCIAL HISTORY: The patient is to a same sex partner. She has not smoked cigarettes in over a year. 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 REVIEW OF SYSTEMS: The patient did not have fever or chills. She complained of a mild cough. She did not have chest pain or palpitations. She had abdominal pain and emesis as in the HPI. PHYSICAL EXAMINATION: GENERAL: The patient is resting comfortably in bed. She is sleepy, but easily aroused, in no acute distress. HEENT: PERRL. EOMI. Sclerae clear. Oropharynx: Mucous membranes moist. CHEST: There are crackles in the right base. The breath sounds are decreased in the left base. CARDIOVASCULAR: Regular rhythm. ABDOMEN: Soft. Few bowel sounds are present. There is mild diffuse tenderness to palpation without guarding or rebound. EXTREMITIES: Bilateral lower extremities show mild chronic lymphedema. ASSESSMENT AND PLAN: 1. Partial small-bowel obstruction. The patient's emesis has resolved with placement of the NG tube. She had about 300 mL of output after this was placed. We will continue her n.p.o. with IV fluids for now and await return of her bowel function. 2. Metastatic cervical cancer. This is progressing. The patient is now DNR per her request. She is noted to have hypercalcemia, which is thought to be due to the malignant process. We will continue her on IV pain medicine for now and hope to resume her oral pain medicine when she is able to tolerate this. 3. Chronic kidney disease, stage 3 with chronic hydronephrosis. The patient's renal function is stable on lab. She has bilateral internal nephrostomy tubes now, which were placed during her last hospital stay. The B and O suppositories are available as needed for her bladder spasms. 4. Malignant pleural effusion. This is fairly stable on her admission x-rays. She had a thoracentesis during her last hospital stay, which was positive for malignant cells. We will continue her on oxygen as needed. 5. Anemia. The patient's hemoglobin is 7.5 today. She did require transfusion of 1 unit packed cells during her last hospital stay. We will follow her lab and transfuse her as indicated. ALYSSA MARTELL MD DR: HARJIT/kristopher JOB#: [id number] / [id number] BENIGNO
--- NOTE | 2019-01-14 10:13 | NUR ---
SS following for discharge planning. SS reviewed pt chart. Pt discharged from hospital on 01/13/2019 with Palliative Care, ; fax [phone], and oxygen through [facility], ; fax [phone]. Pt was readmitted for bowel obstruction. SS will continue to follow for discharge planning.
[2019-01-14 11:00] VITALS: BP 111/54
--- NOTE | 2019-01-14 14:27 | NUR ---
SS following up with discharge planning. SS phoned and faxed clinical updates to Palliative Care, ; fax [phone]. SS will continue to follow for discharge planning.
--- NOTE | 2019-01-14 15:06 | PDOC2 ---
GI CONSULT Reason For Consult: bowel obstruction HPI: HPI: 38 y/o female who we have seen in the past. Recent discharge after hospitalization for complications of metastatic cervical cancer. Significant vomiting w/ abdominal pain last night, now CT shows distended small bowel probably c/w at least partial obstruction, abnormal density within mesentery (probably metastasis), bilateral ureteral stents w/ right hydronephrosis, and diffuse soft tissue edema. NG tube in place w/ about 200cc out - very uncomfortable - d/w nurse and KUB ordered to confirm placement. Feels terrible, hurts all over. H/o anemia, GERD, constipation (improved w/ Colace usually - can't remember when last stooled), and reportedly gastritis on previous EGD. Past US w/ GB sludge, HIDA normal w/ EF 96% in 2018. Rectal and colon wall thickening on past imaging. No past colonoscopy, no liver or pancreas history. PMH: PMH: metastatic cervical cancer, malignant pleural effusion, hydronephrosis, CKD, chronic anemia, GERD, hemorrhoids, hydronephrosis hysterectomy, cystoscopy, lymph node biopsy, lumbar puncture, port placement, thoracentesis, ureteral stents FH: Family History: Cancer, DM, Hypertension Social History: Smoke: Quit ROS: Per HPI. Vitals: Vitals: Vital Signs Date Time Temp Pulse Resp B/P (MAP) Pulse Ox O2 Delivery O2 Flow Rate FiO2 01/14/19 14:40 90 2.0 01/14/19 11:00 97.7 105 14 111/54 (73) Nasal Cannula 97.7 Labs: Labs: Laboratory Tests Test 01/14/19 03:35 01/14/19 05:05 White Blood Count 7.4 x10^3/uL (4.0-11.0) Red Blood Count 2.87 x10^6/uL (3.50-5.40) Hemoglobin 7.5 g/dL (12.0-15.5) Hematocrit 23.2 % (36.0-47.0) Mean Corpuscular Volume 81 fL (79-100) Mean Corpuscular Hemoglobin 26 pg (25-35) Mean Corpuscular Hemoglobin Concent 32 g/dL (31-37) Red Cell Distribution Width 18.4 % (11.5-14.5) Platelet Count 192 x10^3/uL (140-400) Neutrophils (%) (Auto) 89 % (31-73) Lymphocytes (%) (Auto) 3 % (24-48) Monocytes (%) (Auto) 7 % (0-9) Eosinophils (%) (Auto) 1 % (0-3) Basophils (%) (Auto) 0 % (0-3) Neutrophils # (Auto) 6.6 x10^3/uL (1.8-7.7) Lymphocytes # (Auto) 0.3 x10^3/uL (1.0-4.8) Monocytes # (Auto) 0.5 x10^3/uL (0.0-1.1) Eosinophils # (Auto) 0.1 x10^3/uL (0.0-0.7) Basophils # (Auto) 0.0 x10^3/uL (0.0-0.2) Segmented Neutrophils % 90 % (35-66) Band Neutrophils % 1 % (0-9) Lymphocytes % 6 % (24-48) Monocytes % 3 % (0-10) Platelet Estimate Adequate (ADEQUATE) Hypochromasia Slight Anisocytosis Slight Sodium Level 132 mmol/L (136-145) Potassium Level 4.1 mmol/L (3.5-5.1) Chloride Level 97 mmol/L (98-107) Carbon Dioxide Level 27 mmol/L (21-32) Anion Gap 8 (6-14) Blood Urea Nitrogen 29 mg/dL (7-20) Creatinine 1.9 mg/dL (0.6-1.0) Estimated GFR (Cockcroft-Gault) 29.6 BUN/Creatinine Ratio 15 (6-20) Glucose Level 106 mg/dL (70-99) Calcium Level 12.2 mg/dL (8.5-10.1) Total Bilirubin 0.4 mg/dL (0.2-1.0) Aspartate Amino Transf (AST/SGOT) 29 U/L (15-37) Alanine Aminotransferase (ALT/SGPT) 6 U/L (14-59) Alkaline Phosphatase 115 U/L (46-116) Total Protein 7.0 g/dL (6.4-8.2) Albumin 1.9 g/dL (3.4-5.0) Albumin/Globulin Ratio 0.4 (1.0-1.7) Lactic Acid Level 0.8 mmol/L (0.4-2.0) Allergies: Coded Allergies: shrimp (Verified Allergy, Severe, mouth sore, 12/21/18) ondansetron (Verified Adverse Reaction, Severe, 12/21/18) reaction with chemo Medications: Current Medications Medications (Trade) Dose Ordered Sig/Sanna Route PRN Reason Start Time Stop Time Status Last Admin Dose Admin Lidocaine HCl (Lidocaine 1% 20ml Vial) 20 ml 1X ONCE INJ 01/14/19 04:00 01/14/19 04:01 DC 01/14/19 04:28 Sodium Chloride 1,000 ml @ 1,000 mls/hr 1X ONCE IV 01/14/19 04:00 01/14/19 04:59 DC 01/14/19 04:23 Fentanyl Citrate (Fentanyl 2ml Vial) 75 mcg 1X ONCE IVP 01/14/19 05:00 01/14/19 05:02 DC 01/14/19 04:45 Fentanyl Citrate (Fentanyl 2ml Vial) 75 mcg 1X ONCE IVP 01/14/19 05:30 01/14/19 05:31 DC 01/14/19 05:32 Fentanyl Citrate (Fentanyl 2ml Vial) 50 mcg PRN Q1HR PRN IV PAIN 01/14/19 06:15 01/15/19 06:14 01/14/19 14:40 Sodium Chloride 1,000 ml @ 75 mls/hr [id number] IV 01/14/19 09:00 01/14/19 09:23 Belladonna Alkaloids/Opium (B & O) 1 supp Q12HR NV 01/14/19 09:00 01/14/19 09:23 Imaging: Imaging: CT A/P IMPRESSION: Atelectasis at the right lung base. Infiltrate and moderate pleural fluid at the left lung base. Distended small bowel probably reflect at least partial obstruction down to the right lower quadrant. Abnormal density within the mesentery especially in the anterior pelvis which probably reflects metastasis. Bilateral ureteral stents but prominence of the renal pelvis bilaterally consistent with hydronephrosis. Diffuse soft tissue edema. CXR Impression: Infiltrate with moderate pleural effusion at the left lung base. Atelectasis at the right lung base. PE: GEN: ill - family at bedside HEENT: Atraumatic, NG output dark brown LUNGS: NC HEART: RRR ABD: quiet, diffusely tender EXTREMITY: No edema SKIN: No rashes, no jaundice NEURO/PSYCH: A & O 3 A/P: A/P: Metastatic cervical cancer - is DNR Vomiting, abd pain Abnormal CT - at least partial SBO, hydronephrosis w/ ureteral stents Chronic anemia, CKD, hypercalcemia -- Reviewed w/ Dr. Ramírez - await KUB to confirm NG in proper position, ask surgery to comment. Will also ask oncology to see re: hypercalcemia. 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 SALVADOR CARY Jan 14, 2019 15:06
--- NOTE | 2019-01-14 15:20 | RAD ---
Plain film abdominal examination consisting of 1 view(s) of the abdomen. History: Evaluate nasogastric tube placement Comparison: None. Nasogastric tube is seen with tip coiled in the body the stomach. There is a partially visualized left basilar effusion. Bilateral nephroureteral stents are partially identified. The distal aspects are not identified. There is dilation of the small bowel of up to 3 cm consistent with small bowel obstruction. The colon appears relatively decompressed. Electronically signed by: Isaias Nicole MD (01/14/2019 3:17 PM) [id number]
[2019-01-14] MEDS: PANTOPRAZOLE IV PUSH 40 MG VIAL. IVP SCH (16:41)
--- NOTE | 2019-01-14 17:10 | PDOC ---
Provider Note Provider Note Med onc consult see dictation [id number] Hypercalcemia - ordered pamidronate 60 mg IV DEBORAH ROMERO MD Jan 14, 2019 17:10
[2019-01-14] MEDS ORDERED: PAMIDRONATE 60 MG in IV NORMAL SALINE 250ML 250 ML IV ONE (18:00)
[2019-01-14 19:00] VITALS: BP 102/55
--- NOTE | 2019-01-14 20:17 | CONS ---
DATE OF CONSULTATION: 01/14/2019 MEDICAL ONCOLOGY CONSULTATION CONSULTATION REQUESTED BY: Dr. Jeannette Bowman. 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 HISTORY OF PRESENT ILLNESS: The patient is a 38-year-old female who was diagnosed with squamous cell carcinoma of the cervix, T2N1M1 stage 4 in 04/2017. She has had radiation therapy, chemotherapy, and most recently, she was treated with Keytruda. However, she had disease progression and Keytruda was discontinued. She was admitted to [facility] on 01/14/2019 with complaints of nausea and vomiting. She underwent CT scan of the abdomen and pelvis on 01/14/2019 that revealed distended small bowel, probably reflecting partial small-bowel obstruction. Abnormal density within the mesentery, likely represents metastasis. She was noted to have hypercalcemia with a calcium level of 12.2 on 01/14/2019 and hence I was consulted. PAST MEDICAL HISTORY: Metastatic cervical cancer, malignant pleural effusion, hydronephrosis, chronic kidney disease stage 3, and chronic anemia. FAMILY HISTORY: Positive for cancer, diabetes, and hypertension. SOCIAL HISTORY: She has quit smoking. REVIEW OF SYSTEMS: A 12-point review of system was performed. Pertinent positives are mentioned in the history of present illness. Rest of the system review is negative. PHYSICAL EXAMINATION: GENERAL APPEARANCE: The patient is a 38-year-old female who is in no acute cardiorespiratory distress. VITAL SIGNS: Blood pressure 111/54 and temperature 97.7. HEAD: Atraumatic, normocephalic. EYES: No icterus. NECK: Supple. CHEST: Bilaterally symmetrical. HEART: S1, S2 normal. ABDOMEN: Soft, distended. CENTRAL NERVOUS SYSTEM: No focal deficits. SKIN: No rashes. PSYCHOLOGIC: Mood and affect are appropriate. LABORATORY DATA: WBC 7.4, hemoglobin 7.5, and platelet count 192. Calcium 12.2, BUN 29, and creatinine 1.9. IMPRESSION AND PLAN: 1. Stage 4 cancer of the cervix. Most recently, she was treated with immunotherapy with Keytruda, which was discontinued due to disease progression. Continue supportive care. 2. Hypercalcemia, new with a calcium level of 12.2 on 01/14/2019. This is due to underlying malignancy and it would also indicate progressive malignancy. I will give her a dose of pamidronate 60 mg IV x 1 dose. She will not get a 90 mg dose because of renal insufficiency. Continue to monitor calcium. 3. Small-bowel obstruction. Appreciate GI consultation. Continue supportive care. I discussed with Dr. Bowman. I discussed with registered nurse. I will notify Dr. Anastasiya Raines regarding her admission. DEBORAH ROMERO MD DR: RYAN/nts JOB#: [id number] / [id number] MTDD
[2019-01-14] MEDS ORDERED: PHENOL ORAL SPRAY 177ML BOTTLE. PO PRN (20:30)
[2019-01-14] MEDS ORDERED: NALOXONE 0.4 MG/ML VIAL. IV PRN (21:00)
[2019-01-14] MEDS ORDERED: fentaNYL STANDARD PCA 600 MCG/30 ML PCA.SYRING IV ONE (21:12)
--- NOTE | 2019-01-14 22:38 | NUR ---
Pt.'s family requested a INFANTRY OFFICER pump to manage pt.'s pain. Dr. Bowman was called around 1999 for this but stated she does not want one with bowel obstruction. This nurse explained to pt.'s family what stated but family became slightly angry and said to call Dr. Raines because "she WILL get her a INFANTRY OFFICER pump." This nurse called Dr. Raines and got orders for fentanyl INFANTRY OFFICER 25mcg Q20 minutes and 25mcg bolus PRN.
[2019-01-14 23:00] VITALS: BP 103/49
[2019-01-15 03:00] VITALS: BP 102/52
[2019-01-15] MEDS: PANTOPRAZOLE IV PUSH 40 MG VIAL. IVP SCH (04:59)
[2019-01-15 07:00] VITALS: BP 123/55
[2019-01-15] MEDS ORDERED: fentaNYL STANDARD PCA 600 MCG/30 ML PCA.SYRING IV ONE ×2 (08:29→12:31)
[2019-01-15] MEDS: OPIUM/BELLADONNA 30/16.2MG SUPP.RECT. PR SCH ×2 (09:00→16:16)
--- NOTE | 2019-01-15 10:21 | PDOC ---
SUBJECTIVE Subjective S: back in w/ SBO, suspect due to tumor in mesentery? pain is terrible O: Gen: in bed, in pain, mom and dad present, on O2 Abd: distended, TTP upper abdomen Labs: Cr 1.9, Hb 7.5, plt 192 Ca 12.2, alb 1.9 Rads: NGT in stom, SBO, colon decompressed, atx L base, fluid L base, inf L base, mesentery mets? 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 Renal failure: better, w/ bilat nephrostomy tubes internalized Pleural effusion with atx: + cytology, retap prn, on O2 neck pain: better post RT last wk, apprec Rad/onc assistance hyperCa: pamidronate x 1 01/14 Metastatic cervical cancer: end stage now, will ask Ms Puckett to see her Thursday, pall pain control now Thank you kindly, and please don't hesitate to call with any further questions, I am supervisor show operations over the weekend. OBJECTIVE Vital Signs Vital Signs Date Time Temp Pulse Resp B/P (MAP) Pulse Ox O2 Delivery O2 Flow Rate FiO2 01/15/19 08:15 20 Nasal Cannula 2.0 01/15/19 07:00 98.2 112 20 123/55 (77) 94 Nasal Cannula 2.0 98.2 01/15/19 03:00 98.6 118 18 102/52 (69) 90 Nasal Cannula 3.0 98.6 01/14/19 23:00 99.0 116 20 103/49 (67) 90 Nasal Cannula 3.0 99.0 01/14/19 22:00 Nasal Cannula 01/14/19 21:32 Nasal Cannula 01/14/19 21:30 Nasal Cannula 01/14/19 21:01 Nasal Cannula 01/14/19 20:32 22 Nasal Cannula 01/14/19 20:31 Room Air 01/14/19 20:03 Nasal Cannula 01/14/19 20:00 Nasal Cannula 3.0 01/14/19 19:33 20 Nasal Cannula 3.0 01/14/19 19:00 98.3 113 20 102/55 (71) 90 Nasal Cannula 2.0 98.3 01/14/19 18:29 90 Nasal Cannula 2.0 01/14/19 18:17 90 Nasal Cannula 2.0 01/14/19 17:37 90 Nasal Cannula 2.0 01/14/19 17:23 90 Nasal Cannula 2.0 01/14/19 16:42 90 Nasal Cannula 2.0 01/14/19 16:38 90 Nasal Cannula 2.0 01/14/19 14:40 90 2.0 01/14/19 13:46 90 2.0 01/14/19 13:46 90 2.0 01/14/19 13:17 90 2.0 01/14/19 13:16 90 2.0 01/14/19 12:12 90 2.0 01/14/19 12:12 90 2.0 01/14/19 12:12 90 2.0 01/14/19 12:05 90 2.0 01/14/19 11:14 90 2.0 01/14/19 11:00 97.7 105 14 111/54 (73) 96 Nasal Cannula 2.0 97.7 I & O Intake and Output 01/15/19 06:59 Intake Total 0 ml Output Total 450 ml Balance -450 ml Intake Oral 0 ml Output Urine Total 350 ml Gastric Drainage Total 100 ml # Voids 5 POWER MEHTA MD Jan 15, 2019 10:21
--- NOTE | 2019-01-15 10:41 | PDOC ---
PROGRESS NOTES Subjective Subjective Patient somewhat sleepy, resting with occasional moaning. Objective Objective Vital Signs Date Time Temp Pulse Resp B/P (MAP) Pulse Ox O2 Delivery O2 Flow Rate FiO2 01/15/19 08:15 20 Nasal Cannula 2.0 01/15/19 07:00 98.2 112 123/55 (77) 94 98.2 Intake and Output 01/15/19 07:00 Intake Total 0 ml Output Total 450 ml Balance -450 ml Intake Oral 0 ml Output Urine Total 350 ml Gastric Drainage Total 100 ml # Voids 5 Physical Exam Abdomen: Other (scant BS present, moderately distended) Heart: Regular rate Extremities: Other (mild chronic edema bilateral LE's) General: No acute distress Lungs: Other (BS decreased in bases) Assessment Assessment Problems Medical Problems: (1) Anemia Status: Chronic (2) Anemia Status: Acute (3) Partial small bowel obstruction Status: Acute (4) Pleural effusion Status: Acute (5) Small bowel obstruction Status: Acute Plan Plan of Care 1. SBO - stable but exam not improved from admission. Continue NGT for decompression. Dr Yang does not see a role for surgery at this time. 2. Metastatic cervical cancer - continue comfort care with COMMUNITY AFFAIRS DIRECTOR. Given Pamidronate x1 for hypercalcemia. 3. malignant pleural effusions - sats good with O2. Comment Review of Relevant I have reviewed the following items heather (where applicable) has been applied. Labs Laboratory Tests Test 01/14/19 03:35 01/14/19 05:05 White Blood Count 7.4 x10^3/uL (4.0-11.0) Red Blood Count 2.87 x10^6/uL (3.50-5.40) Hemoglobin 7.5 g/dL (12.0-15.5) Hematocrit 23.2 % (36.0-47.0) Mean Corpuscular Volume 81 fL (79-100) Mean Corpuscular Hemoglobin 26 pg (25-35) Mean Corpuscular Hemoglobin Concent 32 g/dL (31-37) Red Cell Distribution Width 18.4 % (11.5-14.5) Platelet Count 192 x10^3/uL (140-400) Neutrophils (%) (Auto) 89 % (31-73) Lymphocytes (%) (Auto) 3 % (24-48) Monocytes (%) (Auto) 7 % (0-9) Eosinophils (%) (Auto) 1 % (0-3) Basophils (%) (Auto) 0 % (0-3) Neutrophils # (Auto) 6.6 x10^3/uL (1.8-7.7) Lymphocytes # (Auto) 0.3 x10^3/uL (1.0-4.8) Monocytes # (Auto) 0.5 x10^3/uL (0.0-1.1) Eosinophils # (Auto) 0.1 x10^3/uL (0.0-0.7) Basophils # (Auto) 0.0 x10^3/uL (0.0-0.2) Segmented Neutrophils % 90 % (35-66) Band Neutrophils % 1 % (0-9) Lymphocytes % 6 % (24-48) Monocytes % 3 % (0-10) Platelet Estimate Adequate (ADEQUATE) Hypochromasia Slight Anisocytosis Slight Sodium Level 132 mmol/L (136-145) Potassium Level 4.1 mmol/L (3.5-5.1) Chloride Level 97 mmol/L (98-107) Carbon Dioxide Level 27 mmol/L (21-32) Anion Gap 8 (6-14) Blood Urea Nitrogen 29 mg/dL (7-20) Creatinine 1.9 mg/dL (0.6-1.0) Estimated GFR (Cockcroft-Gault) 29.6 BUN/Creatinine Ratio 15 (6-20) Glucose Level 106 mg/dL (70-99) Calcium Level 12.2 mg/dL (8.5-10.1) Total Bilirubin 0.4 mg/dL (0.2-1.0) Aspartate Amino Transf (AST/SGOT) 29 U/L (15-37) Alanine Aminotransferase (ALT/SGPT) 6 U/L (14-59) Alkaline Phosphatase 115 U/L (46-116) Total Protein 7.0 g/dL (6.4-8.2) Albumin 1.9 g/dL (3.4-5.0) Albumin/Globulin Ratio 0.4 (1.0-1.7) Lactic Acid Level 0.8 mmol/L (0.4-2.0) Medications Current Medications Sodium Chloride (NORMAL SALINE FLUSH for STERILE FIELD) 10 ml ZUCHEM-AppNeta ONCE .ROUTE ; Start 01/14/19 at 03:13; Stop 01/14/19 at 03:13; Status DC Lidocaine HCl (Lidocaine 1% 20ml Vial) 20 ml 1X ONCE INJ Last administered on 01/14/19at 04:28; Start 01/14/19 at 04:00; Stop 01/14/19 at 04:01; Status DC Sodium Chloride 1,000 ml @ 1,000 mls/hr 1X ONCE IV Last administered on 01/14/19at 04:23; Start 01/14/19 at 04:00; Stop 01/14/19 at 04:59; Status DC Ondansetron HCl (Zofran) 4 mg 1X ONCE IV ; Start 01/14/19 at 04:00; Stop 01/14/19 at 04:02; Status DC Morphine Sulfate (Morphine Sulfate) 4 mg 1X ONCE IV ; Start 01/14/19 at 04:45; Stop 01/14/19 at 05:02; Status DC Fentanyl Citrate (Fentanyl 2ml Vial) 75 mcg 1X ONCE IVP Last administered on 01/14/19at 04:45; Start 01/14/19 at 05:00; Stop 01/14/19 at 05:02; Status DC Fentanyl Citrate (Fentanyl 2ml Vial) 75 mcg 1X ONCE IVP Last administered on 01/14/19at 05:32; Start 01/14/19 at 05:30; Stop 01/14/19 at 05:31; Status DC Ondansetron HCl (Zofran) 4 mg PRN Q8HRS PRN IV NAUSEA/VOMITING; Start 01/14/19 at 06:15; Stop 01/14/19 at 08:50; Status DC Fentanyl Citrate (Fentanyl 2ml Vial) 50 mcg PRN Q1HR PRN IV PAIN Last administered on 01/14/19at 21:30; Start 01/14/19 at 06:15; Stop 01/14/19 at 22:17; Status DC Sodium Chloride 1,000 ml @ 25 mls/hr 1X ONCE IV ; Start 01/14/19 at 06:45; Stop 01/14/19 at 09:47; Status DC Sodium Chloride 1,000 ml @ 75 mls/hr [id number] IV Last administered on 01/14/19at 09:23; Start 01/14/19 at 09:00 Belladonna Alkaloids/Opium (B & O) 1 supp Q12HR MI Last administered on 01/14/19at 20:32; Start 01/14/19 at 09:00 Promethazine HCl (Phenergan Supp) 12.5 mg PRN Q12HR PRN RC NAUSEA; Start 01/14/19 at 09:00 Pantoprazole Sodium (PROTONIX VIAL for IV PUSH) 40 mg DAILYAC IVP Last adminis tered on 01/15/19at 04:59; Start 01/14/19 at 15:30 Pamidronate Disodium 60 mg/ Sodium Chloride 250 ml @ 83.333 mls/ hr 1X ONCE IV Last administered on 01/14/19 17:18; Start 01/14/19 at 18:00; Stop 01/14/19 at 20:59; Status DC Phenol (Chloraseptic) 1 spray PRN Q2HR PRN PO SORE THROAT Last administered on 01/14/19at 20:32; Start 01/14/19 at 20:30 Fentanyl Citrate 30 ml @ 0 mls/hr CONT PRN PRN IV PER PROTOCOL; Start 01/14/19 at 21:00; Stop 01/15/19 at 00:47; Status DC Naloxone HCl (Narcan) 0.4 mg PRN Q2MIN PRN IV SEE INSTRUCTIONS; Start 01/14/19 at 21:00 Sodium Chloride 1,000 ml @ 25 mls/hr Q24H IV Last administered on 01/14/19at 21:00; Start 01/14/19 at 21:00 Lorazepam (Ativan Inj) 0.5 mg PRN Q4HRS PRN IVP ANXIETY / AGITATION Last administered on 01/15/19at 08:55; Start 01/15/19 at 00:15 Fentanyl Citrate 30 ml @ 0 mls/hr CONT PRN PRN IV PER PROTOCOL; Start 01/15/19 at 00:45; Stop 01/15/19 at 04:30; Status DC Fentanyl Citrate 30 ml @ 0 mls/hr CONT PRN PRN IV PER PROTOCOL; Start 01/15/19 at 04:30; Stop 01/15/19 at 04:34; Status DC Fentanyl Citrate 30 ml @ 0 mls/hr CONT PRN PRN IV PER PROTOCOL Last administer ed on 01/15/19at 08:15; Start 01/15/19 at 04:30 Active Scripts Active Belladonna-Opium 16.2-30 Supp (Opium/Belladonna Alkaloids) 1 Each Supp.rect 1 Supp MI Q12HR 30 Days Polyethylene Glycol 3350 17 Gm Powd.pack 17 Gm PO PRN DAILY PRN 30 Days Colace (Docusate Sodium) 100 Mg Capsule 100 Mg PO DAILY MDD 30 30 Days Reported Methadone Hcl 5 Mg Tablet 1.5 Tab PO Q8HRS Oxycodone Hcl 5 Mg Capsule 1-3 Tab PO PRN Q3HRS PRN Gabapentin 600 Mg Tablet 600 Mg PO BID Prevacid (Lansoprazole) 30 Mg Capsule.dr 30 Mg PO DAILY Cyclobenzaprine Hcl 10 Mg Tablet 10 Mg PO PRN TID PRN Phenergan (Promethazine HCl) 12.5 Mg Supp.rect 12.5 Mg RC PRN Q12HR PRN Ambien (Zolpidem Tartrate) 5 Mg Tablet 1 Tab PO QHS PRN Vitals/I & O Vital Sign - Last 24 Hours 01/14/19 01/14/19 01/14/19 01/14/19 11:00 11:14 12:05 12:12 Temp 97.7 97.7 Pulse 105 Resp 14 B/P (MAP) 111/54 (73) Pulse Ox 96 90 90 90 O2 Delivery Nasal Cannula O2 Flow Rate 2.0 2.0 2.0 2.0 01/14/19 01/14/19 01/14/19 01/14/19 12:12 12:12 13:16 13:17 Pulse Ox 90 90 90 90 O2 Flow Rate 2.0 2.0 2.0 2.0 01/14/19 01/14/19 01/14/19 01/14/19 13:46 13:46 14:40 16:38 Pulse Ox 90 90 90 90 O2 Delivery Nasal Cannula O2 Flow Rate 2.0 2.0 2.0 2.0 01/14/19 01/14/19 01/14/19 01/14/19 16:42 17:23 17:37 18:17 Pulse Ox 90 90 90 90 O2 Delivery Nasal Cannula Nasal Cannula Nasal Cannula Nasal Cannula O2 Flow Rate 2.0 2.0 2.0 2.0 01/14/19 01/14/19 01/14/19 01/14/19 18:29 19:00 19:33 20:00 Temp 98.3 98.3 Pulse 113 Resp 20 20 B/P (MAP) 102/55 (71) Pulse Ox 90 90 O2 Delivery Nasal Cannula Nasal Cannula Nasal Cannula Nasal Cannula O2 Flow Rate 2.0 2.0 3.0 3.0 01/14/19 01/14/19 01/14/19 01/14/19 20:03 20:31 20:32 21:01 Resp 22 O2 Delivery Nasal Cannula Room Air Nasal Cannula Nasal Cannula 01/14/19 01/14/19 01/14/19 01/14/19 21:30 21:32 22:00 23:00 Temp 99.0 99.0 Pulse 116 Resp 20 B/P (MAP) 103/49 (67) Pulse Ox 90 O2 Delivery Nasal Cannula Nasal Cannula Nasal Cannula Nasal Cannula O2 Flow Rate 3.0 01/15/19 01/15/19 01/15/19 03:00 07:00 08:15 Temp 98.6 98.2 98.6 98.2 Pulse 118 112 Resp 18 20 20 B/P (MAP) 102/52 (69) 123/55 (77) Pulse Ox 90 94 O2 Delivery Nasal Cannula Nasal Cannula Nasal Cannula O2 Flow Rate 3.0 2.0 2.0 Intake and Output 01/14/19 01/14/19 01/15/19 15:00 23:00 07:00 Intake Total 0 ml Output Total 275 ml 175 ml Balance -275 ml -175 ml ALYSSA MARTELL MD Jan 15, 2019 10:41
--- NOTE | 2019-01-15 10:55 | PDOC2 ---
CONSULT Date of Consult Date of Consult DATE: 01/15/19 TIME: 10:48 History of Present Illness Reason for Visit: The patient is a 38 year old female with a history of metastatic cervical cancer who was admitted with abdominal pain and vomiting. She was recently in the hospital for treatment related to complications of her metastatic disease including hydronephrosis requiring nephrostomy tubes. She now complains of diffuse abdominal pain and her evaluation is consistent with an SBO. Past Medical History Cardiovascular: HTN Pulmonary: No pertinent hx CENTRAL NERVOUS SYSTEM: Other GI: GERD Heme/Onc: Anemia NOS, Cancer Hepatobiliary: No pertinent hx Psych: No pertinent hx Musculoskeletal: Other Rheumatologic: No pertinent hx Infectious disease: No pertinent hx Renal/: UTI Endocrine: No pertinent hx Past Surgical History Past Surgical History: Cystoscopy, Hysterectomy Family History Family History: Coronary Artery Disease Social History Quit Lives: with Family Current Problem List Problem List Problems Medical Problems: (1) Anemia Status: Chronic (2) Anemia Status: Acute (3) Partial small bowel obstruction Status: Acute (4) Pleural effusion Status: Acute (5) Small bowel obstruction Status: Acute Current Medications Current Medications Current Medications Sodium Chloride (NORMAL SALINE FLUSH for STERILE FIELD) 10 ml STK-MED ONCE .ROUTE ; Start 01/14/19 at 03:13; Stop 01/14/19 at 03:13; Status DC Lidocaine HCl (Lidocaine 1% 20ml Vial) 20 ml 1X ONCE INJ Last administered on 01/14/19at 04:28; Start 01/14/19 at 04:00; Stop 01/14/19 at 04:01; Status DC Sodium Chloride 1,000 ml @ 1,000 mls/hr 1X ONCE IV Last administered on 01/14/19at 04:23; Start 01/14/19 at 04:00; Stop 01/14/19 at 04:59; Status DC Ondansetron HCl (Zofran) 4 mg 1X ONCE IV ; Start 01/14/19 at 04:00; Stop 01/14/19 at 04:02; Status DC Morphine Sulfate (Morphine Sulfate) 4 mg 1X ONCE IV ; Start 01/14/19 at 04:45; Stop 01/14/19 at 05:02; Status DC Fentanyl Citrate (Fentanyl 2ml Vial) 75 mcg 1X ONCE IVP Last administered on 01/14/19at 04:45; Start 01/14/19 at 05:00; Stop 01/14/19 at 05:02; Status DC Fentanyl Citrate (Fentanyl 2ml Vial) 75 mcg 1X ONCE IVP Last administered on 01/14/19at 05:32; Start 01/14/19 at 05:30; Stop 01/14/19 at 05:31; Status DC Ondansetron HCl (Zofran) 4 mg PRN Q8HRS PRN IV NAUSEA/VOMITING; Start 01/14/19 at 06:15; Stop 01/14/19 at 08:50; Status DC Fentanyl Citrate (Fentanyl 2ml Vial) 50 mcg PRN Q1HR PRN IV PAIN Last administered on 01/14/19at 21:30; Start 01/14/19 at 06:15; Stop 01/14/19 at 22:17; Status DC Sodium Chloride 1,000 ml @ 25 mls/hr 1X ONCE IV ; Start 01/14/19 at 06:45; Stop 01/14/19 at 09:47; Status DC Sodium Chloride 1,000 ml @ 75 mls/hr [id number] IV Last administered on 01/14/19at 09:23; Start 01/14/19 at 09:00 Belladonna Alkaloids/Opium (B & O) 1 supp Q12HR [place] Last administered on 01/14/19at 20:32; Start 01/14/19 at 09:00 Promethazine HCl (Phenergan Supp) 12.5 mg PRN Q12HR PRN RC NAUSEA; Start 01/14/19 at 09:00 Pantoprazole Sodium (PROTONIX VIAL for IV PUSH) 40 mg DAILYAC IVP Last administered on 01/15/19at 04:59; Start 01/14/19 at 15:30 Pamidronate Disodium 60 mg/ Sodium Chloride 250 ml @ 83.333 mls/ hr 1X ONCE IV Last administered on 01/14/19at 17:18; Start 01/14/19 at 18:00; Stop 01/14/19 at 20:59; Status DC Phenol (Chloraseptic) 1 spray PRN Q2HR PRN PO SORE THROAT Last administered on 01/14/19at 20:32; Start 01/14/19 at 20:30 Fentanyl Citrate 30 ml @ 0 mls/hr CONT PRN PRN IV PER PROTOCOL; Start 01/14/19 at 21:00; Stop 01/15/19 at 00:47; Status DC Naloxone HCl (Narcan) 0.4 mg PRN Q2MIN PRN IV SEE INSTRUCTIONS; Start 01/14/19 at 21:00 Sodium Chloride 1,000 ml @ 25 mls/hr Q24H IV Last administered on 01/14/19at 21:00; Start 01/14/19 at 21:00 Lorazepam (Ativan Inj) 0.5 mg PRN Q4HRS PRN IVP ANXIETY / AGITATION Last administered on 01/15/19at 08:55; Start 01/15/19 at 00:15 Fentanyl Citrate 30 ml @ 0 mls/hr CONT PRN PRN IV PER PROTOCOL; Start 01/15/19 at 00:45; Stop 01/15/19 at 04:30; Status DC Fentanyl Citrate 30 ml @ 0 mls/hr CONT PRN PRN IV PER PROTOCOL; Start 01/15/19 at 04:30; Stop 01/15/19 at 04:34; Status DC Fentanyl Citrate 30 ml @ 0 mls/hr CONT PRN PRN IV PER PROTOCOL Last administered on 01/15/19at 08:15; Start 01/15/19 at 04:30 Active Scripts Active Belladonna-Opium 16.2-30 Supp (Opium/Belladonna Alkaloids) 1 Each Supp.rect 1 Supp [place] Q12HR 30 Days Polyethylene Glycol 3350 17 Gm Powd.pack 17 Gm PO PRN DAILY PRN 30 Days Colace (Docusate Sodium) 100 Mg Capsule 100 Mg PO DAILY MDD 30 30 Days Reported Methadone Hcl 5 Mg Tablet 1.5 Tab PO Q8HRS Oxycodone Hcl 5 Mg Capsule 1-3 Tab PO PRN Q3HRS PRN Gabapentin 600 Mg Tablet 600 Mg PO BID Prevacid (Lansoprazole) 30 Mg Capsule.dr 30 Mg PO DAILY Cyclobenzaprine Hcl 10 Mg Tablet 10 Mg PO PRN TID PRN Phenergan (Promethazine HCl) 12.5 Mg Supp.rect 12.5 Mg RC PRN Q12HR PRN Ambien (Zolpidem Tartrate) 5 Mg Tablet 1 Tab PO QHS PRN Allergies Allergies: Coded Allergies: shrimp (Verified Allergy, Severe, mouth sore, 12/21/18) ondansetron (Verified Adverse Reaction, Severe, 12/21/18) reaction with chemo ROS General: YES: Fatigue PSYCHOLOGICAL ROS: YES: Anxiety Eyes: No Blurry vision, No Decreased vision, No Double vision, No Dry eyes, No Excessive tearing, No Eye Pain, No Itchy Eyes, No Loss of vision, No Photophobia, No Scotomata, No Uses contacts, No Uses glasses, No Other HEENT: No: Heacaches, Visual Changes, Hearing change, Nasal congestion, Nasal discharge, Oral lesions, Sinus pain, Sore Throat, Epistaxis, Sneezing, Snoring, Tinnitus, Vertigo, Vocal changes, Other ALLERGY AND IMMUNOLOGY: No: Hives, Insect Bite Sensitivity, Itchy/Watery Eyes, Nasal Congestion, Post Nasal Drip, Seasonal Allergies, Other Respiratory: No: Cough, Hemoptysis, Orthopnea, Pleuritic Pain, Shortness of breath, SOB with excertion, Sputum Changes, Stridor, Tachypnea, Wheezing, Other Cardiovascular: No Chest Pain, No Palpitations, No Orthopnea, No Paroxysmal Noc. Dyspnea, No Edema, No Lt Headedness, No Other Gastrointestinal: Yes Vomiting, Yes Abdominal Pain Genitourinary: No Dysuria, No Frequency, No Incontinence, No Hematuria, No Retention, No Discharge, No Urgency, No Pain, No Flank Pain, No Other, No , No , No , No , No , No , No Musculoskeletal: No Gait Disturbance, No Joint Pain, No Joint Stiffness, No Joint Swelling, No Muscle Pain, No Muscular Weakness, No Pain In:, No Swelling In:, No Other Neurological: No Behavorial Changes, No Bowel/Bladder ControlChng, No Confusion, No Dizziness, No Gait Disturbance, No Headaches, No Impaired Coord/balance, No Memory Loss, No Numbness/Tingling, No Seizures, No Speech Pr oblems, No Tremors, No Visual Changes, No Weakness, No Other Skin: No Dry Skin, No Eczema, No Hair Changes, No Lumps, No Mole Changes, No Mottling, No Nail Changes, No Pruritus, No Rash, No Skin Lesion Changes, No Other, No Acne Physical Exam General: Alert, moderate distress Lungs: Clear to auscultation Heart: Regular rate Abdomen: Other (tender with palpation) Extremities: No clubbing, No cyanosis Skin: No rashes Psych/Mental Status: Mental status NL Vitals VITALS Vital Signs Date Time Temp Pulse Resp B/P (MAP) Pulse Ox O2 Delivery O2 Flow Rate FiO2 01/15/19 08:15 20 Nasal Cannula 2.0 01/15/19 07:00 98.2 112 123/55 (77) 94 98.2 Labs Labs Laboratory Tests Test 01/14/19 03:35 01/14/19 05:05 White Blood Count 7.4 x10^3/uL (4.0-11.0) Red Blood Count 2.87 x10^6/uL (3.50-5.40) Hemoglobin 7.5 g/dL (12.0-15.5) Hematocrit 23.2 % (36.0-47.0) Mean Corpuscular Volume 81 fL (79-100) Mean Corpuscular Hemoglobin 26 pg (25-35) Mean Corpuscular Hemoglobin Concent 32 g/dL (31-37) Red Cell Distribution Width 18.4 % (11.5-14.5) Platelet Count 192 x10^3/uL (140-400) Neutrophils (%) (Auto) 89 % (31-73) Lymphocytes (%) (Auto) 3 % (24-48) Monocytes (%) (Auto) 7 % (0-9) Eosinophils (%) (Auto) 1 % (0-3) Basophils (%) (Auto) 0 % (0-3) Neutrophils # (Auto) 6.6 x10^3/uL (1.8-7.7) Lymphocytes # (Auto) 0.3 x10^3/uL (1.0-4.8) Monocytes # (Auto) 0.5 x10^3/uL (0.0-1.1) Eosinophils # (Auto) 0.1 x10^3/uL (0.0-0.7) Basophils # (Auto) 0.0 x10^3/uL (0.0-0.2) Segmented Neutrophils % 90 % (35-66) Band Neutrophils % 1 % (0-9) Lymphocytes % 6 % (24-48) Monocytes % 3 % (0-10) Platelet Estimate Adequate (ADEQUATE) Hypochromasia Slight Anisocytosis Slight Sodium Level 132 mmol/L (136-145) Potassium Level 4.1 mmol/L (3.5-5.1) Chloride Level 97 mmol/L (98-107) Carbon Dioxide Level 27 mmol/L (21-32) Anion Gap 8 (6-14) Blood Urea Nitrogen 29 mg/dL (7-20) Creatinine 1.9 mg/dL (0.6-1.0) Estimated GFR (Cockcroft-Gault) 29.6 BUN/Creatinine Ratio 15 (6-20) Glucose Level 106 mg/dL (70-99) Calcium Level 12.2 mg/dL (8.5-10.1) Total Bilirubin 0.4 mg/dL (0.2-1.0) Aspartate Amino Transf (AST/SGOT) 29 U/L (15-37) Alanine Aminotransferase (ALT/SGPT) 6 U/L (14-59) Alkaline Phosphatase 115 U/L (46-116) Total Protein 7.0 g/dL (6.4-8.2) Albumin 1.9 g/dL (3.4-5.0) Albumin/Globulin Ratio 0.4 (1.0-1.7) Lactic Acid Level 0.8 mmol/L (0.4-2.0) Images Images CT scan abdomen: IMPRESSION: Atelectasis at the right lung base. Infiltrate and moderate pleural fluid at the left lung base. Distended small bowel probably reflect at least partial obstruction down to the right lower quadrant. Abnormal density within the mesentery especially in the anterior pelvis which probably reflects metastasis. Bilateral ureteral stents but prominence of the renal pelvis bilaterally consistent with hydronephrosis. Diffuse soft tissue edema. Assessment/Plan Assessment/Plan 38 year old female with metastatic cervical cancer, now with suspected bowel obstruction. Unfortunately this is a difficult problem and may represent an end stage problem. Surgery could be performed but would carry significant risks; surgical options can be limited in the setting of metastatic disease with no guarantee of obstruction relief, and recovery can be difficult and painful. I discussed the situation with the family and Dr Bowman, and recommend efforts are directed for comfort measures. Consider reconsulting Palliative care. JAX BARRIOS MD Jan 15, 2019 10:54
--- NOTE | 2019-01-15 11:08 | PDOC ---
Subjective: Subjective: s/p pamidronate for hypercalcemia Objective: Vital Signs: Vital Signs Date Time Temp Pulse Resp B/P (MAP) Pulse Ox O2 Delivery O2 Flow Rate FiO2 01/15/19 08:15 20 Nasal Cannula 2.0 01/15/19 07:00 98.2 112 123/55 (77) 94 98.2 Labs: ca 12 Physical Exam: Physical Exam: PE: GEN: ill - family at bedside HEENT: Atraumatic, NG output dark brown LUNGS: NC HEART: RRR ABD: quiet, diffusely tender EXTREMITY: No edema SKIN: No rashes, no jaundice NEURO/PSYCH: A & O 3 Assessment & Plan: Assessment : A Metastatic cervical cancer - is DNR Vomiting, abd pain Abnormal CT - at least partial SBO, hydronephrosis w/ ureteral stents Chronic anemia, CKD, hypercalcemia s/p pamidronate Plan: D/w dr Bowman. Will give dose of relistor given narcotic use TOMI STEVENS MD Jan 15, 2019 11:08
[2019-01-15] MEDS ORDERED: METHYLNALTREXONE 12 MG/0.6 ML VIAL. SQ ONE (11:15)
--- NOTE | 2019-01-15 14:30 | NUR ---
Pt to ICU bed 115. Pt on Fentenyl qtt @ 50 mcg/hr. Order on chart to increase to 100 mcg/hr. CLINICAL REHAB LIAISON increased to 99mcg/hr by this nurse. Multiple family members at bedside. Pt DNR/comfort care only. Will continue to assess pt comfort level.
[2019-01-15] MEDS: IV NORMAL SALINE 1000ML BAG 1,000 ML IV SCH (21:00)
[2019-01-16] MEDS: IV NORMAL SALINE 1000ML BAG 1,000 ML IV SCH ×4 (02:57→22:25)
[2019-01-16] MEDS: OPIUM/BELLADONNA 30/16.2MG SUPP.RECT. PR SCH ×2 (08:08→22:25)
[2019-01-16] MEDS: PANTOPRAZOLE IV PUSH 40 MG VIAL. IVP SCH (08:08)
--- NOTE | 2019-01-16 09:33 | PDOC ---
SUBJECTIVE Subjective S: moved to the ICU to help with pain control O: Gen: in bed, on O2, pulling at NGT Abd: distended but less than yesterday, TTP upper abdomen Labs: none today Rads: NGT in stom, SBO, colon decompressed, atx L base, fluid L base, inf L base, mesentery mets? bilat hydro w/ stnents Assessment and Plan: Marivel is a 38-year-old female with metastatic cervical cancer, s/p PD on pembrolizumab, pall RT to neck, renal failure, bilat stents renal, on O2, s/p thoracentesis 12/31 w/ 900 cc fluid w/drawn (malignant) and percutaneous nephrostomy tubes placed 01/04, internalized on 01/11, back in w/ SBO, now on comfort measures only due to the small bowel obstruction SBO: NGT helping, did have 2 small bowel movements, methylnaltrexone has been added, appreciate multidisciplinary assistance Renal failure: better, w/ bilat nephrostomy tubes internalized Pleural effusion with atx: + cytology, retap prn, on O2 neck pain: better post RT last wk, apprec Rad/onc assistance hyperCa: pamidronate x 1 01/14 Metastatic cervical cancer: end stage now, will ask Ms Lavern to see her Thursday, pall pain control now, on comfort measures, continues to clinically decline Thank you kindly, and please don't hesitate to call with any further questions, I am trade economist over the weekend. OBJECTIVE Vital Signs Vital Signs Date Time Temp Pulse Resp B/P (MAP) Pulse Ox O2 Delivery O2 Flow Rate FiO2 01/16/19 09:08 18 Nasal Cannula 2.0 01/16/19 08:25 20 Nasal Cannula 2.0 01/16/19 08:08 20 Nasal Cannula 2.0 01/16/19 07:55 14 Nasal Cannula 2.0 01/16/19 07:46 Nasal Cannula 2.0 01/16/19 03:16 16 Nasal Cannula 2.0 01/15/19 22:22 16 Nasal Cannula 2.5 01/15/19 17:46 Nasal Cannula 2.0 01/15/19 17:42 14 Nasal Cannula 2.0 01/15/19 16:16 12 94 Nasal Cannula 2.0 01/15/19 14:48 18 Nasal Cannula 2.0 I & O Intake and Output 01/16/19 06:59 Intake Total 1010 ml Output Total 2 ml Balance 1008 ml Intake Oral 0 ml IV Total 1010 ml Output Urine Total 2 ml # Voids 5 POWER MEHTA MD Jan 16, 2019 09:33
--- NOTE | 2019-01-16 10:10 | PDOC ---
PROGRESS NOTES Subjective Subjective Patient sleepy after receiving B&O suppository. Resting quietly in recliner. Objective Objective Vital Signs Date Time Temp Pulse Resp B/P (MAP) Pulse Ox O2 Delivery O2 Flow Rate FiO2 01/16/19 09:08 18 Nasal Cannula 2.0 01/15/19 16:16 94 01/15/19 07:00 98.2 112 123/55 (77) 98.2 Intake and Output 01/16/19 07:00 Intake Total 1010 ml Output Total 2 ml Balance 1008 ml Intake Oral 0 ml IV Total 1010 ml Output Urine Total 2 ml # Voids 5 Physical Exam Abdomen: Other (scant BS present, soft, mildly distended) Heart: Regular rate Extremities: Other (mild chronic edema) General: No acute distress Lungs: Other (BS decreased at bases) Assessment Assessment Problems Medical Problems: (1) Anemia Status: Chronic (2) Anemia Status: Acute (3) Partial small bowel obstruction Status: Acute (4) Pleural effusion Status: Acute (5) Small bowel obstruction Status: Acute Plan Plan of Care 1. Metastatic cervical cancer - continue comfort care with CATH LAB MANAGER at high basal rate, Ativan for agitation, O2. Family appears comfortable with present care, continue in ICU. 2. partial SBO - had two small bowel movements. Good output from NG tube. Abdo karime exam a little improved, continue present tx. 3. bladder spasms - discomfort appears controlled with scheduled B&O supposit ories, continue. Comment Review of Relevant I have reviewed the following items heather (where applicable) has been applied. Medications Current Medications Sodium Chloride (NORMAL SALINE FLUSH for STERILE FIELD) 10 ml STXolve-MED ONCE .ROUTE ; Start 01/14/19 at 03:13; Stop 01/14/19 at 03:13; Status DC Lidocaine HCl (Lidocaine 1% 20ml Vial) 20 ml 1X ONCE INJ Last administered on 01/14/19at 04:28; Start 01/14/19 at 04:00; Stop 01/14/19 at 04:01; Status DC Sodium Chloride 1,000 ml @ 1,000 mls/hr 1X ONCE IV Last administered on 01/14/19at 04:23; Start 01/14/19 at 04:00; Stop 01/14/19 at 04:59; Status DC Ondansetron HCl (Zofran) 4 mg 1X ONCE IV ; Start 01/14/19 at 04:00; Stop 1 at 04:02; Status DC Morphine Sulfate (Morphine Sulfate) 4 mg 1X ONCE IV ; Start 01/14/19 at 04:45; Stop 01/14/19 at 05:02; Status DC Fentanyl Citrate (Fentanyl 2ml Vial) 75 mcg 1X ONCE IVP Last administered on 01/14/19at 04:45; Start 01/14/19 at 05:00; Stop 01/14/19 at 05:02; Status DC Fentanyl Citrate (Fentanyl 2ml Vial) 75 mcg 1X ONCE IVP Last administered on 01/14/19at 05:32; Start 01/14/19 at 05:30; Stop 01/14/19 at 05:31; Status DC Ondansetron HCl (Zofran) 4 mg PRN Q8HRS PRN IV NAUSEA/VOMITING; Start 01/14/19 at 06:15; Stop 01/14/19 at 08:50; Status DC Fentanyl Citrate (Fentanyl 2ml Vial) 50 mcg PRN Q1HR PRN IV PAIN Last administered on 01/14/19at 21:30; Start 01/14/19 at 06:15; Stop 01/14/19 at 22:17; Status DC Sodium Chloride 1,000 ml @ 25 mls/hr 1X ONCE IV ; Start 01/14/19 at 06:45; Stop 01/14/19 at 09:47; Status DC Sodium Chloride 1,000 ml @ 75 mls/hr [id number] IV Last administered on 01/16/19at 02:57; Start 01/14/19 at 09:00 Belladonna Alkaloids/Opium (B & O) 1 supp Q12HR [place] Last administered on 01/16/19at 08:08; Start 01/14/19 at 09:00 Promethazine HCl (Phenergan Supp) 12.5 mg PRN Q12HR PRN RC NAUSEA; Start 01/14/19 at 09:00 Pantoprazole Sodium (PROTONIX VIAL for IV PUSH) 40 mg DAILYAC IVP Last administered on 01/16/19at 08:08; Start 01/14/19 at 15:30 Pamidronate Disodium 60 mg/ Sodium Chloride 250 ml @ 83.333 mls/ hr 1X ONCE IV Last administered on 01/14/19at 17:18; Start 01/14/19 at 18:00; Stop 01/14/19 at 20:59; Status DC Phenol (Chloraseptic) 1 spray PRN Q2HR PRN PO SORE THROAT Last administered on 01/14/19at 20:32; Start 01/14/19 at 20:30 Fentanyl Citrate 30 ml @ 0 mls/hr CONT PRN PRN IV PER PROTOCOL; Start 01/14/19 at 21:00; Stop 01/15/19 at 00:47; Status DC Naloxone HCl (Narcan) 0.4 mg PRN Q2MIN PRN IV SEE INSTRUCTIONS; Start 01/14/19 at 21:00 Sodium Chloride 1,000 ml @ 25 mls/hr Q24H IV Last administered on 01/14/19at 21:00; Start 01/14/19 at 21:00 Lorazepam (Ativan Inj) 0.5 mg PRN Q4HRS PRN IVP ANXIETY / AGITATION Last administered on 01/15/19at 08:55; Start 01/15/19 at 00:15; Stop 01/15/19 at 10:54; Status DC Fentanyl Citrate 30 ml @ 0 mls/hr CONT PRN PRN IV PER PROTOCOL; Start 01/15/19 at 00:45; Stop 01/15/19 at 04:30; Status DC Fentanyl Citrate 30 ml @ 0 mls/hr CONT PRN PRN IV PER PROTOCOL; Start 01/15/19 at 04:30; Stop 01/15/19 at 04:34; Status DC Fentanyl Citrate 30 ml @ 0 mls/hr CONT PRN PRN IV PER PROTOCOL Last administered on 01/15/19at 08:15; Start 01/15/19 at 04:30; Stop 01/15/19 at 14:20; Status DC Lorazepam (Ativan Inj) 1 mg PRN Q1HR PRN IVP ANXIETY / AGITATION Last administered on 01/16/19 08:03; Start 01/15/19 at 11:00 Methylnaltrexone [place] (Relistor) 12 mg 1X ONCE SQ Last administered on 01/15/19at 11:45; Start 01/15/19 at 11:15; Stop 01/15/19 at 11:16; Status DC Lorazepam (Ativan Inj) 2 mg PRN Q1HR PRN IVP ANXIETY / AGITATION Last administered on 01/15/19at 14:00; Start 01/15/19 at 12:45 Fentanyl Citrate 30 ml @ 0 mls/hr CONT PRN PRN IV PER PROTOCOL Last administered on 01/16/19at 07:55; Start 01/15/19 at 14:15 Active Scripts Active Belladonna-Opium 16.2-30 Supp (Opium/Belladonna Alkaloids) 1 Each Supp.rect 1 Supp [place] Q12HR 30 Days Polyethylene Glycol 3350 17 Gm Powd.pack 17 Gm PO PRN DAILY PRN 30 Days Colace (Docusate Sodium) 100 Mg Capsule 100 Mg PO DAILY MDD 30 30 Days Reported Methadone Hcl 5 Mg Tablet 1.5 Tab PO Q8HRS Oxycodone Hcl 5 Mg Capsule 1-3 Tab PO PRN Q3HRS PRN Gabapentin 600 Mg Tablet 600 Mg PO BID Prevacid (Lansoprazole) 30 Mg Capsule.dr 30 Mg PO DAILY Cyclobenzaprine Hcl 10 Mg Tablet 10 Mg PO PRN TID PRN Phenergan (Promethazine HCl) 12.5 Mg Supp.rect 12.5 Mg RC PRN Q12HR PRN Ambien (Zolpidem Tartrate) 5 Mg Tablet 1 Tab PO QHS PRN Vitals/I & O Vital Sign - Last 24 Hours 01/15/19 01/15/19 01/15/19 01/15/19 14:48 16:16 17:42 17:46 Resp 18 12 14 Pulse Ox 94 O2 Delivery Nasal Cannula Nasal Cannula Nasal Cannula Nasal Cannula O2 Flow Rate 2.0 2.0 2.0 2.0 01/15/19 01/16/19 01/16/19 01/16/19 22:22 03:16 07:46 07:55 Resp 16 16 14 O2 Delivery Nasal Cannula Nasal Cannula Nasal Cannula Nasal Cannula O2 Flow Rate 2.5 2.0 2.0 2.0 01/16/19 01/16/19 01/16/19 08:08 08:25 09:08 Resp 20 20 18 O2 Delivery Nasal Cannula Nasal Cannula Nasal Cannula O2 Flow Rate 2.0 2.0 2.0 Intake and Output 01/15/19 01/15/19 01/16/19 15:00 23:00 07:00 Intake Total 30 ml 980 ml Output Total 2 ml Balance 30 ml 978 ml ALYSSA MARTELL MD Jan 16, 2019 10:10
--- NOTE | 2019-01-16 11:49 | PDOC ---
PROGRESS NOTES Subjective Subjective pt sleepy, in ICU receiving narcotics, has had small stools Objective Objective Vital Signs Date Time Temp Pulse Resp B/P (MAP) Pulse Ox O2 Delivery O2 Flow Rate FiO2 01/16/19 09:08 18 Nasal Cannula 2.0 01/15/19 16:16 94 01/15/19 07:00 98.2 112 123/55 (77) 98.2 Intake and Output 01/16/19 07:00 Intake Total 1010 ml Output Total 2 ml Balance 1008 ml Intake Oral 0 ml IV Total 1010 ml Output Urine Total 2 ml # Voids 5 Physical Exam Abdomen: Other (mildly distended) Heart: Regular rate General: Other (lethargic) Lungs: Clear to auscultation Assessment Assessment Problems Medical Problems: (1) Anemia Status: Chronic (2) Anemia Status: Acute (3) Partial small bowel obstruction Status: Acute (4) Pleural effusion Status: Acute (5) Small bowel obstruction Status: Acute Plan Plan of Care Discussed situation with family; they seem interested in comfort measures; no plans for surgery Comment Review of Relevant I have reviewed the following items heather (where applicable) has been applied. Medications Current Medications Sodium Chloride (NORMAL SALINE FLUSH for STERILE FIELD) 10 ml STK-MED ONCE .ROUTE ; Start 01/14/19 at 03:13; Stop 01/14/19 at 03:13; Status DC Lidocaine HCl (Lidocaine 1% 20ml Vial) 20 ml 1X ONCE INJ Last administered on 01/14/19at 04:28; Start 01/14/19 at 04:00; Stop 01/14/19 at 04:01; Status DC Sodium Chloride 1,000 ml @ 1,000 mls/hr 1X ONCE IV Last administered on 01/14/19at 04:23; Start 01/14/19 at 04:00; Stop 01/14/19 at 04:59; Status DC Ondansetron HCl (Zofran) 4 mg 1X ONCE IV ; Start 01/14/19 at 04:00; Stop 01/14/19 at 04:02; Status DC Morphine Sulfate (Morphine Sulfate) 4 mg 1X ONCE IV ; Start 01/14/19 at 04:45; Stop 01/14/19 at 05:02; Status DC Fentanyl Citrate (Fentanyl 2ml Vial) 75 mcg 1X ONCE IVP Last administered on 01/14/19at 04:45; Start 01/14/19 at 05:00; Stop 01/14/19 at 05:02; Status DC Fentanyl Citrate (Fentanyl 2ml Vial) 75 mcg 1X ONCE IVP Last administered on 01/14/19at 05:32; Start 01/14/19 at 05:30; Stop 01/14/19 at 05:31; Status DC Ondansetron HCl (Zofran) 4 mg PRN Q8HRS PRN IV NAUSEA/VOMITING; Start 01/14/19 at 06:15; Stop 01/14/19 at 08:50; Status DC Fentanyl Citrate (Fentanyl 2ml Vial) 50 mcg PRN Q1HR PRN IV PAIN Last ad ministered on 01/14/19at 21:30; Start 01/14/19 at 06:15; Stop 01/14/19 at 22:17; Status DC Sodium Chloride 1,000 ml @ 25 mls/hr 1X ONCE IV ; Start 01/14/19 at 06:45; Stop 01/14/19 at 09:47; Status DC Sodium Chloride 1,000 ml @ 75 mls/hr [id number] IV Last administered on 01/16/19at 02:57; Start 01/14/19 at 09:00 Belladonna Alkaloids/Opium (B & O) 1 supp Q12HR [place] Last administered on 01/16/19at 08:08; Start 01/14/19 at 09:00 Promethazine HCl (Phenergan Supp) 12.5 mg PRN Q12HR PRN RC NAUSEA; Start 01/14/19 at 09:00 Pantoprazole Sodium (PROTONIX VIAL for IV PUSH) 40 mg DAILYAC IVP Last administered on 01/16/19at 08:08; Start 01/14/19 at 15:30 Pamidronate Disodium 60 mg/ Sodium Chloride 250 ml @ 83.333 mls/ hr 1X ONCE IV Last administered on 01/14/19at 17:18; Start 01/14/19 at 18:00; Stop 01/14/19 at 20:59; Status DC Phenol (Chloraseptic) 1 spray PRN Q2HR PRN PO SORE THROAT Last administered on 01/14/19at 20:32; Start 01/14/19 at 20:30 Fentanyl Citrate 30 ml @ 0 mls/hr CONT PRN PRN IV PER PROTOCOL; Start 01/14/19 at 21:00; Stop 01/15/19 at 00:47; Status DC Naloxone HCl (Narcan) 0.4 mg PRN Q2MIN PRN IV SEE INSTRUCTIONS; Start 01/14/19 at 21:00 Sodium Chloride 1,000 ml @ 25 mls/hr Q24H IV Last administered on 01/14/19at 21:00; Start 01/14/19 at 21:00 Lorazepam (Ativan Inj) 0.5 mg PRN Q4HRS PRN IVP ANXIETY / AGITATION Last administered on 01/15/19at 08:55; Start 01/15/19 at 00:15; Stop 01/15/19 at 10:54; Status DC Fentanyl Citrate 30 ml @ 0 mls/hr CONT PRN PRN IV PER PROTOCOL; Start 01/15/19 at 00:45; Stop 01/15/19 at 04:30; Status DC Fentanyl Citrate 30 ml @ 0 mls/hr CONT PRN PRN IV PER PROTOCOL; Start 01/15/19 at 04:30; Stop 01/15/19 at 04:34; Status DC Fentanyl Citrate 30 ml @ 0 mls/hr CONT PRN PRN IV PER PROTOCOL Last adm inistered on 01/15/19at 08:15; Start 01/15/19 at 04:30; Stop 01/15/19 at 14:20; Status DC Lorazepam (Ativan Inj) 1 mg PRN Q1HR PRN IVP ANXIETY / AGITATION Last administered on 01/16/19at 11:35; Start 01/15/19 at 11:00 Methylnaltrexone [place] (Relistor) 12 mg 1X ONCE SQ Last administered on 01/15/19at 11:45; Start 01/15/19 at 11:15; Stop 01/15/19 at 11:16; Status DC Lorazepam (Ativan Inj) 2 mg PRN Q1HR PRN IVP ANXIETY / AGITATION Last administered on 01/15/19at 14:00; Start 01/15/19 at 12:45 Fentanyl Citrate 30 ml @ 0 mls/hr CONT PRN PRN IV PER PROTOCOL Last administered on 01/16/19at 07:55; Start 01/15/19 at 14:15 Active Scripts Active Belladonna-Opium 16.2-30 Supp (Opium/Belladonna Alkaloids) 1 Each Supp.rect 1 Supp [place] Q12HR 30 Days Polyethylene Glycol 3350 17 Gm Powd.pack 17 Gm PO PRN DAILY PRN 30 Days Colace (Docusate Sodium) 100 Mg Capsule 100 Mg PO DAILY MDD 30 30 Days Reported Methadone Hcl 5 Mg Tablet 1.5 Tab PO Q8HRS Oxycodone Hcl 5 Mg Capsule 1-3 Tab PO PRN Q3HRS PRN Gabapentin 600 Mg Tablet 600 Mg PO BID Prevacid (Lansoprazole) 30 Mg Capsule.dr 30 Mg PO DAILY Cyclobenzaprine Hcl 10 Mg Tablet 10 Mg PO PRN TID PRN Phenergan (Promethazine HCl) 12.5 Mg Supp.rect 12.5 Mg RC PRN Q12HR PRN Ambien (Zolpidem Tartrate) 5 Mg Tablet 1 Tab PO QHS PRN Vitals/I & O Vital Sign - Last 24 Hours 01/15/19 01/15/19 01/15/19 01/15/19 14:48 16:16 17:42 17:46 Resp 18 12 14 Pulse Ox 94 O2 Delivery Nasal Cannula Nasal Cannula Nasal Cannula Nasal Cannula O2 Flow Rate 2.0 2.0 2.0 2.0 01/15/19 01/16/19 01/16/19 01/16/19 22:22 03:16 07:46 07:55 Resp 16 16 14 O2 Delivery Nasal Cannula Nasal Cannula Nasal Cannula Nasal Cannula O2 Flow Rate 2.5 2.0 2.0 2.0 01/16/19 01/16/19 01/16/19 08:08 08:25 09:08 Resp 20 20 18 O2 Delivery Nasal Cannula Nasal Cannula Nasal Cannula O2 Flow Rate 2.0 2.0 2.0 Intake and Output 01/15/19 01/15/19 01/16/19 15:00 23:00 07:00 Intake Total 30 ml 980 ml Output Total 2 ml Balance 30 ml 978 ml JAX BARRIOS MD Jan 16, 2019 11:49
--- NOTE | 2019-01-16 15:03 | PDOC ---
Subjective: Subjective: 2 small BMs Objective: Vital Signs: Vital Signs Date Time Temp Pulse Resp B/P (MAP) Pulse Ox O2 Delivery O2 Flow Rate FiO2 01/16/19 12:41 18 Nasal Cannula 2.0 01/15/19 16:16 94 01/15/19 07:00 98.2 112 123/55 (77) 98.2 Labs: na Physical Exam: Physical Exam: Physical Exam: Physical Exam: PE: GEN: ill - family at bedside HEENT: Atraumatic, NG output dark brown LUNGS: NC HEART: RRR ABD: quiet, diffusely tender EXTREMITY: No edema SKIN: No rashes, no jaundice NEURO/PSYCH: A & O 3 Assessment & Plan: Assessment : A Metastatic cervical cancer - is DNR Vomiting, abd pain Abnormal CT - at least partial SBO, hydronephrosis w/ ureteral stents Chronic anemia, CKD, hypercalcemia s/p pamidronate Plan: Relistor maybe worked. Can given another dose tomorrow TOMI STEVENS MD Jan 16, 2019 15:03
[2019-01-16 19:00] VITALS: BP 116/50
[2019-01-17] MEDS: IV NORMAL SALINE 1000ML BAG 1,000 ML IV SCH ×4 (03:40→20:35)
--- NOTE | 2019-01-17 07:54 | PDOC ---
PROGRESS NOTES Subjective Subjective Patient resting quietly in bed. Opens eyes briefly. Objective Objective Vital Signs Date Time Temp Pulse Resp B/P (MAP) Pulse Ox O2 Delivery O2 Flow Rate FiO2 01/17/19 03:14 20 Nasal Cannula 3.5 01/16/19 19:00 116/50 (72) 01/15/19 16:16 94 01/15/19 07:00 98.2 112 98.2 Intake and Output 01/17/19 07:00 Intake Total 0 ml Output Total 100 ml Balance -100 ml Intake Oral 0 ml Gastric Drainage Total 100 ml # Voids 3 Physical Exam Abdomen: Soft, Other (few BS present) Heart: Regular rate Extremities: Other (mild chronic edema bilateral LE's) General: No acute distress Lungs: Other (BS decreased at bases) Assessment Assessment Problems Medical Problems: (1) Anemia Status: Chronic (2) Anemia Status: Acute (3) Partial small bowel obstruction Status: Acute (4) Pleural effusion Status: Acute (5) Small bowel obstruction Status: Acute Plan Plan of Care 1. Metastatic cervical cancer - nursing split and drum room supervisor asking for patient to move out of ICU as bed is needed. Patient presently comfortable with level of care. OK with moving patient. Continue comfort care. 2. partial SBO - has had a few bowel movements and abdominal exam has improved. Continue NGT to decrease discomfort. 3. bladder spams - appear controlled with scheduled B&O suppositories. Comment Review of Relevant I have reviewed the following items heather (where applicable) has been applied. Medications Current Medications Sodium Chloride (NORMAL SALINE FLUSH for STERILE FIELD) 10 ml STK-MED ONCE .ROUTE ; Start 01/14/19 at 03:13; Stop 01/14/19 at 03:13; Status DC Lidocaine HCl (Lidocaine 1% 20ml Vial) 20 ml 1X ONCE INJ Last administered on 01/14/19at 04:28; Start 01/14/19 at 04:00; Stop 01/14/19 at 04:01; Status DC Sodium Chloride 1,000 ml @ 1,000 mls/hr 1X ONCE IV Last administered on 01/14/19at 04:23; Start 01/14/19 at 04:00; Stop 01/14/19 at 04:59; Status DC Ondansetron HCl (Zofran) 4 mg 1X ONCE IV ; Start 01/14/19 at 04:00; Stop 01/14/19 at 04:02; Status DC Morphine Sulfate (Morphine Sulfate) 4 mg 1X ONCE IV ; Start 01/14/19 at 04:45; Stop 01/14/19 at 05:02; Status DC Fentanyl Citrate (Fentanyl 2ml Vial) 75 mcg 1X ONCE IVP Last administered on 01/14/19at 04:45; Start 01/14/19 at 05:00; Stop 01/14/19 at 05:02; Status DC Fentanyl Citrate (Fentanyl 2ml Vial) 75 mcg 1X ONCE IVP Last administered on 01/14/19at 05:32; Start 01/14/19 at 05:30; Stop 01/14/19 at 05:31; Status DC Ondansetron HCl (Zofran) 4 mg PRN Q8HRS PRN IV NAUSEA/VOMITING; Start 01/14/19 at 06:15; Stop 01/14/19 at 08:50; Status DC Fentanyl Citrate (Fentanyl 2ml Vial) 50 mcg PRN Q1HR PRN IV PAIN Last administered on 01/14/19at 21:30; Start 01/14/19 at 06:15; Stop 01/14/19 at 22:17; Status DC Sodium Chloride 1,000 ml @ 25 mls/hr 1X ONCE IV ; Start 01/14/19 at 06:45; Stop 01/14/19 at 09:47; Status DC Sodium Chloride 1,000 ml @ 75 mls/hr [id number] IV Last administered on 01/16/19at 15:25; Start 01/14/19 at 09:00 Belladonna Alkaloids/Opium (B & O) 1 supp Q12HR [place] Last administered on 01/16/19at 22:25; Start 01/14/19 at 09:00 Promethazine HCl (Phenergan Supp) 12.5 mg PRN Q12HR PRN RC NAUSEA; Start 01/14/19 at 09:00 Pantoprazole Sodium (PROTONIX VIAL for IV PUSH) 40 mg DAILYAC IVP Last administered on 01/16/19at 08:08; Start 01/14/19 at 15:30 Pamidronate Disodium 60 mg/ Sodium Chloride 250 ml @ 83.333 mls/ hr 1X ONCE IV Last administered on 01/14/19at 17:18; Start 01/14/19 at 18:00; Stop 01/14/19 at 20:59; Status DC Phenol (Chloraseptic) 1 spray PRN Q2HR PRN PO SORE THROAT Last administered on 01/14/19at 20:32; Start 01/14/19 at 20:30 Fentanyl Citrate 30 ml @ 0 mls/hr CONT PRN PRN IV PER PROTOCOL; Start 01/14/19 at 21:00; Stop 01/15/19 at 00:47; Status DC Naloxone HCl (Narcan) 0.4 mg PRN Q2MIN PRN IV SEE INSTRUCTIONS; Start 01/14/19 at 21:00 Sodium Chloride 1,000 ml @ 25 mls/hr Q24H IV Last administered on 01/16/19at 22:25; Start 01/14/19 at 21:00 Lorazepam (Ativan Inj) 0.5 mg PRN Q4HRS PRN IVP ANXIETY / AGITATION Last administered on 01/15/19at 08:55; Start 01/15/19 at 00:15; Stop 01/15/19 at 10:54; Status DC Fentanyl Citrate 30 ml @ 0 mls/hr CONT PRN PRN IV PER PROTOCOL; Start 01/15/19 at 00:45; Stop 01/15/19 at 04:30; Status DC Fentanyl Citrate 30 ml @ 0 mls/hr CONT PRN PRN IV PER PROTOCOL; Start 01/15/19 at 04:30; Stop 01/15/19 at 04:34; Status DC Fentanyl Citrate 30 ml @ 0 mls/hr CONT PRN PRN IV PER PROTOCOL Last administered on 01/15/19at 08:15; Start 01/15/19 at 04:30; Stop 01/15/19 at 14:20; Status DC Lorazepam (Ativan Inj) 1 mg PRN Q1HR PRN IVP ANXIETY / AGITATION Last administered on 01/17/19at 03:17; Start 01/15/19 at 11:00 Methylnaltrexone [place] (Relistor) 12 mg 1X ONCE SQ Last administered on 01/15/19at 11:45; Start 01/15/19 at 11:15; Stop 01/15/19 at 11:16; Status DC Lorazepam (Ativan Inj) 2 mg PRN Q1HR PRN IVP ANXIETY / AGITATION Last administered on 01/16/19at 19:51; Start 01/15/19 at 12:45 Fentanyl Citrate 30 ml @ 0 mls/hr CONT PRN PRN IV PER PROTOCOL Last administered on 01/17/19at 03:14; Start 01/15/19 at 14:15 Active Scripts Active Belladonna-Opium 16.2-30 Supp (Opium/Belladonna Alkaloids) 1 Each Supp.rect 1 Supp [place] Q12HR 30 Days Polyethylene Glycol 3350 17 Gm Powd.pack 17 Gm PO PRN DAILY PRN 30 Days Colace (Docusate Sodium) 100 Mg Capsule 100 Mg PO DAILY MDD 30 30 Days Reported Methadone Hcl 5 Mg Tablet 1.5 Tab PO Q8HRS Oxycodone Hcl 5 Mg Capsule 1-3 Tab PO PRN Q3HRS PRN Gabapentin 600 Mg Tablet 600 Mg PO BID Prevacid (Lansoprazole) 30 Mg Capsule.dr 30 Mg PO DAILY Cyclobenzaprine Hcl 10 Mg Tablet 10 Mg PO PRN TID PRN Phenergan (Promethazine HCl) 12.5 Mg Supp.rect 12.5 Mg RC PRN Q12HR PRN Ambien (Zolpidem Tartrate) 5 Mg Tablet 1 Tab PO QHS PRN Vitals/I & O Vital Sign - Last 24 Hours 01/16/19 01/16/19 01/16/19 01/16/19 07:55 08:08 08:25 09:08 Resp 14 20 20 18 O2 Delivery Nasal Cannula Nasal Cannula Nasal Cannula Nasal Cannula O2 Flow Rate 2.0 2.0 2.0 2.0 01/16/19 01/16/19 01/16/19 01/16/19 12:11 12:41 17:00 17:30 Resp 16 18 20 18 O2 Delivery Nasal Cannula Nasal Cannula Nasal Cannula Nasal Cannula O2 Flow Rate 2.0 2.0 2.0 2.0 01/16/19 01/16/19 01/16/19 01/16/19 19:00 19:32 22:25 22:38 Resp 14 16 14 B/P (MAP) 116/50 (72) O2 Delivery Nasal Cannula Nasal Cannula Nasal Cannula O2 Flow Rate 3.5 3.5 3.5 01/17/19 03:14 Resp 20 O2 Delivery Nasal Cannula O2 Flow Rate 3.5 Intake and Output 01/16/19 01/16/19 01/17/19 15:00 23:00 07:00 Intake Total 0 ml 0 ml Output Total 100 ml Balance -100 ml 0 ml ALYSSA MARTELL MD Jan 17, 2019 07:54
[2019-01-17] MEDS: OPIUM/BELLADONNA 30/16.2MG SUPP.RECT. PR SCH ×2 (09:06→20:30)
[2019-01-17] MEDS: PANTOPRAZOLE IV PUSH 40 MG VIAL. IVP SCH (09:07)
--- NOTE | 2019-01-17 09:50 | PDOC ---
Objective: Objective: Reviewed chart, d/w nursing. Received Relistor over the weekend, discussion of repeating. Had to replace NGT last night. Vital Signs: Vital Signs Date Time Temp Pulse Resp B/P (MAP) Pulse Ox O2 Delivery O2 Flow Rate FiO2 01/17/19 09:06 94 Nasal Cannula 3.5 01/17/19 08:12 12 01/16/19 19:00 116/50 (72) PE: GEN: doors closed, family in room A/P: Metastatic cervical cancer, SBO -- D/w staff - plan is for comfort care - GI will sign off. SALVADOR CARY Jan 17, 2019 09:50
--- NOTE | 2019-01-17 09:51 | PDOC ---
SUBJECTIVE Subjective S: Pain and anxiety seem pretty well controlled, lots of family at bedside, yesterday was her birthday O: Gen: in bed, on O2, w/ NGT Abd: distended but sl improved, TTP upper abdomen Labs: none today Rads: NGT in stom, SBO, colon decompressed, atx L base, fluid L base, inf L base, mesentery mets? bilat hydro w/ stnents Assessment and Plan: Marivel is a 39-year-old female with metastatic cervical cancer, s/p PD on pembrolizumab, pall RT to neck, renal failure, bilat stents renal, on O2, s/p thoracentesis 12/31 w/ 900 cc fluid w/drawn (malignant) and pe rcutaneous nephrostomy tubes placed 01/04, internalized on 01/11, back in w/ SBO, now on comfort measures only due to the small bowel obstruction SBO: NGT helping, appreciate multidisciplinary assistance Renal failure: better, w/ bilat nephrostomy tubes internalized, no longer checking labs Pleural effusion with atx: + cytology, currently doing fine on O2 neck pain: better post RT last wk, apprec Rad/onc assistance hyperCa: pamidronate x 1 01/14 Metastatic cervical cancer: on comfort measures, continues to clinically decline, appreciate Ms Lavern's assistance Thank you kindly, and please don't hesitate to call with any further questions. OBJECTIVE Vital Signs Vital Signs Date Time Temp Pulse Resp B/P (MAP) Pulse Ox O2 Delivery O2 Flow Rate FiO2 01/17/19 09:06 94 Nasal Cannula 3.5 01/17/19 08:12 12 01/17/19 03:14 20 Nasal Cannula 3.5 01/16/19 22:38 14 01/16/19 22:25 16 Nasal Cannula 3.5 01/16/19 19:32 Nasal Cannula 3.5 01/16/19 19:00 14 116/50 (72) Nasal Cannula 3.5 01/16/19 17:30 18 Nasal Cannula 2.0 01/16/19 17:00 20 Nasal Cannula 2.0 01/16/19 12:41 18 Nasal Cannula 2.0 01/16/19 12:11 16 Nasal Cannula 2.0 I & O Intake and Output 01/17/19 07:00 Intake Total 0 ml Output Total 100 ml Balance -100 ml Intake Oral 0 ml Gastric Drainage Total 100 ml # Voids 3 POWER MEHTA MD Jan 17, 2019 09:51
--- NOTE | 2019-01-17 10:04 | PDOC2 ---
PALLIATIVE CARE Palliative Care Note Palliative Care Consult requested by Dr. Bowman to assist with plan of care. Medical Assessment per medical record; amily at bedside. (1) Anemia (2) Anemia (3) Partial small bowel obstruction (4) Pleural effusion (5) Small bowel obstruction Patient resting comfortable. Fentanyl 12.5 mcq continues gtt. Awakens easily. Family at bedside. Patient moved to Rm. 260. Ativan given for restlessness. Appears comfortable Will discuss with Dr. Arriola further plans LADAN RICHARDSON Jan 17, 2019 10:04
--- NOTE | 2019-01-17 12:12 | PDOC ---
NASH DE LEON APRN 01/17/19 1212: SURGICAL PROGRESS NOTE Subjective chart reviewed on comfort measures palliative following no surgical plans will sign off, available if needed Vital Signs Vital Signs Date Time Temp Pulse Resp B/P (MAP) Pulse Ox O2 Delivery O2 Flow Rate FiO2 01/17/19 10:08 94 Nasal Cannula 3.5 01/17/19 08:12 12 01/16/19 19:00 116/50 (72) I&O Intake and Output 01/17/19 06:59 Intake Total 0 ml Output Total 100 ml Balance -100 ml Intake Oral 0 ml Gastric Drainage Total 100 ml # Voids 3 Problem List Problems Medical Problems: (1) Anemia Status: Chronic (2) Anemia Status: Acute (3) Partial small bowel obstruction Status: Acute (4) Pleural effusion Status: Acute (5) Small bowel obstruction Status: Acute JAX BARRIOS MD 01/18/19 1703: SURGICAL PROGRESS NOTE Assessment/Plan Agree with above NASH DE LEON APRN Jan 17, 2019 12:12 JAX BARRIOS MD Jan 18, 2019 17:03
--- NOTE | 2019-01-17 14:27 | NUR ---
SS following up with discharge planning. Pt now comfort measures. Palliative Care consulted. SS will follow up with palliative care RN for recommendations. SS will continue to follow for discharge planning.
[2019-01-17 19:25] VITALS: BP 102/52
--- NOTE | 2019-01-18 01:47 | NUR ---
pt pulled ng out. pt requesting to keep ng out at this time. will continue to monitor.
--- NOTE | 2019-01-18 08:04 | PDOC ---
PROGRESS NOTES Subjective Subjective Patient resting quietly, arousable. Objective Objective Vital Signs Date Time Temp Pulse Resp B/P (MAP) Pulse Ox O2 Delivery O2 Flow Rate FiO2 01/18/19 04:28 14 01/17/19 19:25 98.8 116 102/52 (69) 92 Nasal Cannula 3.0 98.8 Intake and Output 01/18/19 07:00 Intake Total 100 ml Balance 100 ml Intake Oral 100 ml # Voids 2 Physical Exam Abdomen: Normal bowel sounds, Soft Heart: Regular rate Extremities: Other (scant chronic edema bilateral LE's) General: No acute distress Lungs: Other (BS decreased in bases) Assessment Assessment Problems Medical Problems: (1) Anemia Status: Chronic (2) Anemia Status: Acute (3) Partial small bowel obstruction Status: Acute (4) Pleural effusion Status: Acute (5) Small bowel obstruction Status: Acute Plan Plan of Care 1. Metastatic cervical cancer - comfortable with present pain medications, continue. Patient pulled out NG tube last evening but has not had any emesis since, will continue to leave out if tolerating. Family to try small amounts of clear liquids per patient request. 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 Continue comfort care in inpatient setting due to need for [employer] for pain control. Comment Review of Relevant I have reviewed the following items heather (where applicable) has been applied. Medications Current Medications Sodium Chloride (NORMAL SALINE FLUSH for STERILE FIELD) 10 ml STK-MED ONCE .ROUTE ; Start 01/14/19 at 03:13; Stop 01/14/19 at 03:13; Status DC Lidocaine HCl (Lidocaine 1% 20ml Vial) 20 ml 1X ONCE INJ Last administered on 01/14/19at 04:28; Start 01/14/19 at 04:00; Stop 01/14/19 at 04:01; Status DC Sodium Chloride 1,000 ml @ 1,000 mls/hr 1X ONCE IV Last administered on 01/14/19at 04:23; Start 01/14/19 at 04:00; Stop 01/14/19 at 04:59; Status DC Ondansetron HCl (Zofran) 4 mg 1X ONCE IV ; Start 01/14/19 at 04:00; Stop 01/14/19 at 04:02; Status DC Morphine Sulfate (Morphine Sulfate) 4 mg 1X ONCE IV ; Start 01/14/19 at 04:45; Stop 01/14/19 at 05:02; Status DC Fentanyl Citrate (Fentanyl 2ml Vial) 75 mcg 1X ONCE IVP Last administered on 01/14/19at 04:45; Start 01/14/19 at 05:00; Stop 01/14/19 at 05:02; Status DC Fentanyl Citrate (Fentanyl 2ml Vial) 75 mcg 1X ONCE IVP Last administered on 01/14/19at 05:32; Start 01/14/19 at 05:30; Stop 01/14/19 at 05:31; Status DC Ondansetron HCl (Zofran) 4 mg PRN Q8HRS PRN IV NAUSEA/VOMITING; Start 01/14/19 at 06:15; Stop 01/14/19 at 08:50; Status DC Fentanyl Citrate (Fentanyl 2ml Vial) 50 mcg PRN Q1HR PRN IV PAIN Last administered on 01/14/19at 21:30; Start 01/14/19 at 06:15; Stop 01/14/19 at 22:17; Status DC Sodium Chloride 1,000 ml @ 25 mls/hr 1X ONCE IV ; Start 01/14/19 at 06:45; Stop 01/14/19 at 09:47; Status DC Sodium Chloride 1,000 ml @ 75 mls/hr [id number] IV Last administered on 01/17/19at 20:35; Start 01/14/19 at 09:00 Belladonna Alkaloids/Opium (B & O) 1 supp Q12HR [place] Last administered on 01/17/19at 20:30; Start 01/14/19 at 09:00 Promethazine HCl (Phenergan Supp) 12.5 mg PRN Q12HR PRN RC NAUSEA; Start 01/14/19 at 09:00 Pantoprazole Sodium (PROTONIX VIAL for IV PUSH) 40 mg DAILYAC IVP Last administered on 01/17/19at 09:07; Start 01/14/19 at 15:30 Pamidronate Disodium 60 mg/ Sodium Chloride 250 ml @ 83.333 mls/ hr 1X ONCE IV Last administered on 01/14/19at 17:18; Start 01/14/19 at 18:00; Stop 01/14/19 at 20:59; Status DC Phenol (Chloraseptic) 1 spray PRN Q2HR PRN PO SORE THROAT Last administered on 01/14/19at 20:32; Start 01/14/19 at 20:30 Fentanyl Citrate 30 ml @ 0 mls/hr CONT PRN PRN IV PER PROTOCOL; Start 01/14/19 at 21:00; Stop 01/15/19 at 00:47; Status DC Naloxone HCl (Narcan) 0.4 mg PRN Q2MIN PRN IV SEE INSTRUCTIONS; Start 01/14/19 at 21:00 Sodium Chloride 1,000 ml @ 25 mls/hr Q24H IV Last administered on 01/16/19at 22:25; Start 01/14/19 at 21:00 Lorazepam (Ativan Inj) 0.5 mg PRN Q4HRS PRN IVP ANXIETY / AGITATION Last administered on 01/15/19at 08:55; Start 01/15/19 at 00:15; Stop 01/15/19 at 10:54; Status DC Fentanyl Citrate 30 ml @ 0 mls/hr CONT PRN PRN IV PER PROTOCOL; Start 01/15/19 at 00:45; Stop 01/15/19 at 04:30; Status DC Fentanyl Citrate 30 ml @ 0 mls/hr CONT PRN PRN IV PER PROTOCOL; Start 01/15/19 at 04:30; Stop 01/15/19 at 04:34; Status DC Fentanyl Citrate 30 ml @ 0 mls/hr CONT PRN PRN IV PER PROTOCOL Last a dministered on 01/15/19at 08:15; Start 01/15/19 at 04:30; Stop 01/15/19 at 14:20; Status DC Lorazepam (Ativan Inj) 1 mg PRN Q1HR PRN IVP ANXIETY / AGITATION Last administered on 01/18/19at 00:50; Start 01/15/19 at 11:00 Methylnaltrexone [place] (Relistor) 12 mg 1X ONCE SQ Last administered on 01/15/19at 11:45; Start 01/15/19 at 11:15; Stop 01/15/19 at 11:16; Status DC Lorazepam (Ativan Inj) 2 mg PRN Q1HR PRN IVP ANXIETY / AGITATION Last administered on 01/17/19at 17:55; Start 01/15/19 at 12:45 Fentanyl Citrate 30 ml @ 0 mls/hr CONT PRN PRN IV PER PROTOCOL Last administered on 01/18/19at 03:58; Start 01/15/19 at 14:15 Active Scripts Active Belladonna-Opium 16.2-30 Supp (Opium/Belladonna Alkaloids) 1 Each Supp.rect 1 Supp [place] Q12HR 30 Days Polyethylene Glycol 3350 17 Gm Powd.pack 17 Gm PO PRN DAILY PRN 30 Days Colace (Docusate Sodium) 100 Mg Capsule 100 Mg PO DAILY MDD 30 30 Days Reported Methadone Hcl 5 Mg Tablet 1.5 Tab PO Q8HRS Oxycodone Hcl 5 Mg Capsule 1-3 Tab PO PRN Q3HRS PRN Gabapentin 600 Mg Tablet 600 Mg PO BID Prevacid (Lansoprazole) 30 Mg Capsule.dr 30 Mg PO DAILY Cyclobenzaprine Hcl 10 Mg Tablet 10 Mg PO PRN TID PRN Phenergan (Promethazine HCl) 12.5 Mg Supp.rect 12.5 Mg RC PRN Q12HR PRN Ambien (Zolpidem Tartrate) 5 Mg Tablet 1 Tab PO QHS PRN Vitals/I & O Vital Sign - Last 24 Hours 01/17/19 01/17/19 01/17/19 01/17/19 08:12 09:06 10:08 10:08 Resp 12 Pulse Ox 94 94 94 O2 Delivery Nasal Cannula Nasal Cannula Nasal Cannula O2 Flow Rate 3.5 3.5 3.5 01/17/19 01/17/19 01/17/19 01/17/19 13:15 14:38 18:02 19:18 Pulse Ox 94 94 94 O2 Delivery Nasal Cannula Nasal Cannula Nasal Cannula Nasal Cannula O2 Flow Rate 3.5 3.5 3.5 3.5 01/17/19 01/17/19 01/17/19 01/17/19 19:25 20:30 21:30 23:12 Temp 98.8 98.8 Pulse 116 Resp 16 16 16 18 B/P (MAP) 102/52 (69) Pulse Ox 92 O2 Delivery Nasal Cannula O2 Flow Rate 3.0 01/17/19 01/18/19 01/18/19 23:42 03:58 04:28 Resp 18 16 14 Intake and Output 01/17/19 01/17/19 01/18/19 15:00 23:00 07:00 Intake Total 0 ml 0 ml 100 ml Balance 0 ml 0 ml 100 ml ALYSSA MARTELL MD Jan 18, 2019 08:04
[2019-01-18 08:25] VITALS: BP 104/54
[2019-01-18] MEDS: PANTOPRAZOLE IV PUSH 40 MG VIAL. IVP SCH (09:23)
--- NOTE | 2019-01-18 10:03 | PDOC ---
SUBJECTIVE Subjective S: pulled G tube out, comfortable O: Gen: in bed, on O2 through mouth, some movements during visit Abd: distended sl, TTP upper abdomen Labs: none today Assessment and Plan: Marivel is a 39-year-old female with metastatic cervical cancer, s/p PD on pembrolizumab, pall RT to neck, renal failure, bilat stents renal, on O2, s/p thoracentesis 12/31 w/ 900 cc fluid w/drawn (malignant) and percutaneous nephrostomy tubes placed 01/04, internalized on 01/11, back in w/ SBO, now on comfort measures only due to the small bowel obstruction SBO: pall tx now, no plans to replace tube unless n/v sx direct Renal failure: better, w/ bilat nephrostomy tubes internalized, no longer checking labs Pleural effusion with atx: + cytology, currently doing OK on O2 neck pain: better post RT last wk, apprec Rad/onc assistance hyperCa: pamidronate x 1 01/14 Metastatic cervical cancer: on comfort measures, continues to clinically decline, appreciate Ms Lavern's assistance Thank you kindly, and please don't hesitate to call with any further questions, I will return on Thursday. OBJECTIVE Vital Signs Vital Signs Date Time Temp Pulse Resp B/P (MAP) Pulse Ox O2 Delivery O2 Flow Rate FiO2 01/18/19 08:25 97.5 113 20 104/54 (71) 95 Nasal Cannula 3.0 97.5 01/18/19 04:28 14 01/18/19 03:58 16 01/17/19 23:42 18 01/17/19 23:12 18 01/17/19 21:30 16 01/17/19 20:30 16 01/17/19 19:25 98.8 116 16 102/52 (69) 92 Nasal Cannula 3.0 98.8 01/17/19 19:18 Nasal Cannula 3.5 01/17/19 18:02 94 Nasal Cannula 3.5 01/17/19 14:38 94 Nasal Cannula 3.5 01/17/19 13:15 94 Nasal Cannula 3.5 01/17/19 10:08 94 Nasal Cannula 3.5 01/17/19 10:08 94 Nasal Cannula 3.5 I & O Intake and Output 01/18/19 07:00 Intake Total 100 ml Balance 100 ml Intake Oral 100 ml # Voids 2 POWER MEHTA MD Jan 18, 2019 10:03
[2019-01-18] MEDS: OPIUM/BELLADONNA 30/16.2MG SUPP.RECT. PR SCH ×2 (10:30→21:01)
--- NOTE | 2019-01-18 18:20 | NUR ---
Family at bedside. Family participated/provided care, comforting patient, assisting in toileting, ambulating, repositioning, ect.
[2019-01-18 23:00] VITALS: BP 108/68
[2019-01-18] MEDS: IV NORMAL SALINE 1000ML BAG 1,000 ML IV SCH (23:02)
--- NOTE | 2019-01-19 07:56 | PDOC ---
PROGRESS NOTES Subjective Subjective Patient resting quietly, easily aroused. Objective Objective Vital Signs Date Time Temp Pulse Resp B/P (MAP) Pulse Ox O2 Delivery O2 Flow Rate FiO2 01/19/19 06:20 22 95 Nasal Cannula 3.0 01/18/19 23:00 98.9 89 108/68 (81) 98.9 Physical Exam Abdomen: Soft, Other (some BS present) Heart: Regular rate Extremities: Other (mild chronic edema) General: No acute distress Lungs: Other (BS decreased at bases, few expiratory wheezes) Assessment Assessment Problems Medical Problems: (1) Anemia Status: Chronic (2) Anemia Status: Acute (3) Partial small bowel obstruction Status: Acute (4) Pleural effusion Status: Acute (5) Small bowel obstruction Status: Acute Plan Plan of Care 1. Metastatic cervical cancer - appears comfortable with present pain management. Tolerating having NG tube out and able to take some po fluids as desired. Continue present care. Comment Review of Relevant I have reviewed the following items heather (where applicable) has been applied. Medications Current Medications Sodium Chloride (NORMAL SALINE FLUSH for STERILE FIELD) 10 ml [employer] ONCE .ROUTE ; Start 01/14/19 at 03:13; Stop 01/14/19 at 03:13; Status DC Lidocaine HCl (Lidocaine 1% 20ml Vial) 20 ml 1X ONCE INJ Last administered on 01/14/19at 04:28; Start 01/14/19 at 04:00; Stop 01/14/19 at 04:01; Status DC Sodium Chloride 1,000 ml @ 1,000 mls/hr 1X ONCE IV Last administered on 01/14/19at 04:23; Start 01/14/19 at 04:00; Stop 01/14/19 at 04:59; Status DC Ondansetron HCl (Zofran) 4 mg 1X ONCE IV ; Start 01/14/19 at 04:00; Stop 01/14/19 at 04:02; Status DC Morphine Sulfate (Morphine Sulfate) 4 mg 1X ONCE IV ; Start 01/14/19 at 04:45; Stop 01/14/19 at 05:02; Status DC Fentanyl Citrate (Fentanyl 2ml Vial) 75 mcg 1X ONCE IVP Last administered on 1 at 04:45; Start 01/14/19 at 05:00; Stop 01/14/19 at 05:02; Status DC Fentanyl Citrate (Fentanyl 2ml Vial) 75 mcg 1X ONCE IVP Last administered on 01/14/19at 05:32; Start 01/14/19 at 05:30; Stop 01/14/19 at 05:31; Status DC Ondansetron HCl (Zofran) 4 mg PRN Q8HRS PRN IV NAUSEA/VOMITING; Start 01/14/19 at 06:15; Stop 01/14/19 at 08:50; Status DC Fentanyl Citrate (Fentanyl 2ml Vial) 50 mcg PRN Q1HR PRN IV PAIN Last administered on 01/14/19at 21:30; Start 01/14/19 at 06:15; Stop 01/14/19 at 22:17; Status DC Sodium Chloride 1,000 ml @ 25 mls/hr 1X ONCE IV ; Start 01/14/19 at 06:45; Stop 01/14/19 at 09:47; Status DC Sodium Chloride 1,000 ml @ 75 mls/hr [id number] IV Last administered on 01/17/19at 20:35; Start 01/14/19 at 09:00; Stop 01/18/19 at 07:59; Status DC Belladonna Alkaloids/Opium (B & O) 1 supp Q12HR [place] Last administered on 01/18/19at 21:01; Start 01/14/19 at 09:00 Promethazine HCl (Phenergan Supp) 12.5 mg PRN Q12HR PRN RC NAUSEA; Start 01/14/19 at 09:00 Pantoprazole Sodium (PROTONIX VIAL for IV PUSH) 40 mg DAILYAC IVP Last administered on 01/18/19at 09:23; Start 01/14/19 at 15:30 Pamidronate Disodium 60 mg/ Sodium Chloride 250 ml @ 83.333 mls/ hr 1X ONCE IV Last administered on 01/14/19at 17:18; Start 01/14/19 at 18:00; Stop 01/14/19 at 20:59; Status DC Phenol (Chloraseptic) 1 spray PRN Q2HR PRN PO SORE THROAT Last administered on 01/14/19at 20:32; Start 01/14/19 at 20:30 Fentanyl Citrate 30 ml @ 0 mls/hr CONT PRN PRN IV PER PROTOCOL; Start 01/14/19 at 21:00; Stop 01/15/19 at 00:47; Status DC Naloxone HCl (Narcan) 0.4 mg PRN Q2MIN PRN IV SEE INSTRUCTIONS; Start 01/14/19 at 21:00 Sodium Chloride 1,000 ml @ 25 mls/hr Q24H IV Last administered on 01/18/19at 23:02; Start 01/14/19 at 21:00 Lorazepam (Ativan Inj) 0.5 mg PRN Q4HRS PRN IVP ANXIETY / AGITATION Last administered on 01/15/19at 08:55; Start 01/15/19 at 00:15; Stop 01/15/19 at 10:54; Status DC Fentanyl Citrate 30 ml @ 0 mls/hr CONT PRN PRN IV PER PROTOCOL; Start 01/15/19 at 00:45; Stop 01/15/19 at 04:30; Status DC Fentanyl Citrate 30 ml @ 0 mls/hr CONT PRN PRN IV PER PROTOCOL; Start 01/15/19 at 04:30; Stop 01/15/19 at 04:34; Status DC Fentanyl Citrate 30 ml @ 0 mls/hr CONT PRN PRN IV PER PROTOCOL Last administered on 01/15/19at 08:15; Start 01/15/19 at 04:30; Stop 01/15/19 at 14:20; Status DC Lorazepam (Ativan Inj) 1 mg PRN Q1HR PRN IVP ANXIETY / AGITATION Last a dministered on 01/19/19at 05:51; Start 01/15/19 at 11:00 Methylnaltrexone [place] (Relistor) 12 mg 1X ONCE SQ Last administered on 01/15/19at 11:45; Start 01/15/19 at 11:15; Stop 01/15/19 at 11:16; Status DC Lorazepam (Ativan Inj) 2 mg PRN Q1HR PRN IVP ANXIETY / AGITATION Last administered on 01/18/19at 23:01; Start 01/15/19 at 12:45 Fentanyl Citrate 30 ml @ 0 mls/hr CONT PRN PRN IV PER PROTOCOL Last administered on 01/19/19at 05:50; Start 01/15/19 at 14:15 Active Scripts Active Belladonna-Opium 16.2-30 Supp (Opium/Belladonna Alkaloids) 1 Each Supp.rect 1 Supp [place] Q12HR 30 Days Polyethylene Glycol 3350 17 Gm Powd.pack 17 Gm PO PRN DAILY PRN 30 Days Colace (Docusate Sodium) 100 Mg Capsule 100 Mg PO DAILY MDD 30 30 Days Reported Methadone Hcl 5 Mg Tablet 1.5 Tab PO Q8HRS Oxycodone Hcl 5 Mg Capsule 1-3 Tab PO PRN Q3HRS PRN Gabapentin 600 Mg Tablet 600 Mg PO BID Prevacid (Lansoprazole) 30 Mg Capsule.dr 30 Mg PO DAILY Cyclobenzaprine Hcl 10 Mg Tablet 10 Mg PO PRN TID PRN Phenergan (Promethazine HCl) 12.5 Mg Supp.rect 12.5 Mg RC PRN Q12HR PRN Ambien (Zolpidem Tartrate) 5 Mg Tablet 1 Tab PO QHS PRN Vitals/I & O Vital Sign - Last 24 Hours 01/18/19 01/18/19 01/18/19 01/18/19 08:10 08:25 19:51 20:00 Temp 97.5 97.5 Pulse 113 Resp 20 B/P (MAP) 104/54 (71) Pulse Ox 95 95 O2 Delivery Nasal Cannula Nasal Cannula Nasal Cannula Nasal Cannula O2 Flow Rate 3.5 3.0 3.0 3.0 01/18/19 01/18/19 01/18/19 01/18/19 20:21 21:01 22:01 23:00 Temp 98.9 98.9 Pulse 89 Resp 20 16 20 18 B/P (MAP) 108/68 (81) Pulse Ox 95 95 95 O2 Delivery Nasal Cannula Nasal Cannula Nasal Cannula Nasal Cannula O2 Flow Rate 3.0 3.0 3.0 2.0 01/19/19 01/19/19 01/19/19 01/19/19 00:41 01:11 05:50 06:20 Resp 20 18 22 22 Pulse Ox 95 95 95 95 O2 Delivery Nasal Cannula Nasal Cannula Nasal Cannula Nasal Cannula O2 Flow Rate 3.0 3.0 3.0 3.0 Nutrition Consultation Dietary Evaluation: Comments: Continue w/diet as ordered/as appropriate per goals of comfort care Expected Outcomes/Goals: Nutrition as appropriate per goals of care Malnutrition Findings: Food and Nutrition Intake (Mod: <75% est energy req 7days Weight Status: Obese ALYSSA MARTELL MD Jan 19, 2019 07:56
[2019-01-19] MEDS: OPIUM/BELLADONNA 30/16.2MG SUPP.RECT. PR SCH ×3 (09:00→22:54)
[2019-01-19] MEDS: PANTOPRAZOLE IV PUSH 40 MG VIAL. IVP SCH (09:18)
[2019-01-19 09:29] VITALS: BP 125/73
[2019-01-19] MEDS: IV NORMAL SALINE 1000ML BAG 1,000 ML IV SCH (11:15)
--- NOTE | 2019-01-19 13:23 | PDOC2 ---
PALLIATIVE CARE Palliative Care Note Palliative Care Patient resting comfortably. Did not awaken Fentanyl 90mcq gtt continued. tolerating few sips of po. Spoke with Maria Elena about discharge. Would not want to take patient home b/c of small children and aggressive symptom management. Not interested in IP Hospice now. Will continue to follow for symptom management. LADAN RICHARDSON Jan 19, 2019 13:23
[2019-01-19 15:00] VITALS: BP 109/59
[2019-01-19 22:47] VITALS: BP 105/58
[2019-01-20 07:00] VITALS: BP 120/54
--- NOTE | 2019-01-20 08:28 | PDOC ---
PROGRESS NOTES Subjective Subjective Patient somewhat restless. Breathing comfortably, O2 in mouth or not in use. Objective Objective Vital Signs Date Time Temp Pulse Resp B/P (MAP) Pulse Ox O2 Delivery O2 Flow Rate FiO2 01/20/19 07:30 95 Nasal Cannula 4.0 01/20/19 03:19 14 01/19/19 22:47 98.3 123 105/58 (74) 98.3 Intake and Output 01/20/19 07:00 Intake Total 200 ml Output Total 251 ml Balance -51 ml Intake Oral 200 ml Output Urine Total 251 ml # Voids 3 Physical Exam Abdomen: Other (few BS present, soft) Heart: Regular rate Extremities: Other (scant chronic edema ) General: No acute distress Lungs: Other (BS decreased in bases) Assessment Assessment Problems Medical Problems: (1) Anemia Status: Chronic (2) Anemia Status: Acute (3) Partial small bowel obstruction Status: Acute (4) Pleural effusion Status: Acute (5) Small bowel obstruction Status: Acute Plan Plan of Care 1. Metastatic cervical cancer - continue comfort care. Possibility of imaging to determine if thoracentesis would be indicated discussed with family but patient has been unable to lay flat due to discomfort so imaging and possible procedure would be intolerable for her. Some hypoxia on RA but no sign of respiratory distress with this. Continue O2 when patient feels need for it. Not a lot of bowel sounds on exam today, continue sips of clears if patient desires but do not recommend solid food at this time. Continue BELT CUTTER and scheduled B&O suppositories. Family comfortable with inpatient care. Comment Review of Relevant I have reviewed the following items heather (where applicable) has been applied. Medications Current Medications Sodium Chloride (NORMAL SALINE FLUSH for STERILE FIELD) 10 ml [employer] ONCE .ROUTE ; Start 01/14/19 at 03:13; Stop 01/14/19 at 03:13; Status DC Lidocaine HCl (Lidocaine 1% 20ml Vial) 20 ml 1X ONCE INJ Last administered on 01/14/19at 04:28; Start 01/14/19 at 04:00; Stop 01/14/19 at 04:01; Status DC Sodium Chloride 1,000 ml @ 1,000 mls/hr 1X ONCE IV Last administered on 01/14/19at 04:23; Start 01/14/19 at 04:00; Stop 01/14/19 at 04:59; Status DC Ondansetron HCl (Zofran) 4 mg 1X ONCE IV ; Start 01/14/19 at 04:00; Stop 01/14/19 at 04:02; Status DC Morphine Sulfate (Morphine Sulfate) 4 mg 1X ONCE IV ; Start 01/14/19 at 04:45; Stop 01/14/19 at 05:02; Status DC Fentanyl Citrate (Fentanyl 2ml Vial) 75 mcg 1X ONCE IVP Last administered on 01/14/19at 04:45; Start 01/14/19 at 05:00; Stop 01/14/19 at 05:02; Status DC Fentanyl Citrate (Fentanyl 2ml Vial) 75 mcg 1X ONCE IVP Last administered on 01/14/19at 05:32; Start 01/14/19 at 05:30; Stop 01/14/19 at 05:31; Status DC Ondansetron HCl (Zofran) 4 mg PRN Q8HRS PRN IV NAUSEA/VOMITING; Start 01/14/19 at 06:15; Stop 01/14/19 at 08:50; Status DC Fentanyl Citrate (Fentanyl 2ml Vial) 50 mcg PRN Q1HR PRN IV PAIN Last administered on 01/14/19at 21:30; Start 01/14/19 at 06:15; Stop 01/14/19 at 22:17; Status DC Sodium Chloride 1,000 ml @ 25 mls/hr 1X ONCE IV ; Start 01/14/19 at 06:45; Stop 01/14/19 at 09:47; Status DC Sodium Chloride 1,000 ml @ 75 mls/hr [id number] IV Last administered on 01/17/19at 20:35; Start 01/14/19 at 09:00; Stop 01/18/19 at 07:59; Status DC Belladonna Alkaloids/Opium (B & O) 1 supp Q12HR [place] Last administered on 01/19/19at 22:54; Start 01/14/19 at 09:00 Promethazine HCl (Phenergan Supp) 12.5 mg PRN Q12HR PRN RC NAUSEA; Start 01/14/19 at 09:00 Pantoprazole Sodium (PROTONIX VIAL for IV PUSH) 40 mg DAILYAC IVP Last administered on 01/19/19at 09:18; Start 01/14/19 at 15:30 Pamidronate Disodium 60 mg/ Sodium Chloride 250 ml @ 83.333 mls/ hr 1X ONCE IV Last administered on 01/14/19at 17:18; Start 01/14/19 at 18:00; Stop 01/14/19 at 20:59; Status DC Phenol (Chloraseptic) 1 spray PRN Q2HR PRN PO SORE THROAT Last administered on 01/14/19at 20:32; Start 01/14/19 at 20:30 Fentanyl Citrate 30 ml @ 0 mls/hr CONT PRN PRN IV PER PROTOCOL; Start 01/14/19 at 21:00; Stop 01/15/19 at 00:47; Status DC Naloxone HCl (Narcan) 0.4 mg PRN Q2MIN PRN IV SEE INSTRUCTIONS; Start 01/14/19 at 21:00 Sodium Chloride 1,000 ml @ 25 mls/hr Q24H IV Last administered on 01/19/19at 11:15; Start 01/14/19 at 21:00 Lorazepam (Ativan Inj) 0.5 mg PRN Q4HRS PRN IVP ANXIETY / AGITATION Last administered on 01/15/19at 08:55; Start 01/15/19 at 00:15; Stop 01/15/19 at 10:54; Status DC Fentanyl Citrate 30 ml @ 0 mls/hr CONT PRN PRN IV PER PROTOCOL; Start 01/15/19 at 00:45; Stop 01/15/19 at 04:30; Status DC Fentanyl Citrate 30 ml @ 0 mls/hr CONT PRN PRN IV PER PROTOCOL; Start 01/15/19 at 04:30; Stop 01/15/19 at 04:34; Status DC Fentanyl Citrate 30 ml @ 0 mls/hr CONT PRN PRN IV PER PROTOCOL Last administered on 01/15/19at 08:15; Start 01/15/19 at 04:30; Stop 01/15/19 at 14:20; Status DC Lorazepam (Ativan Inj) 1 mg PRN Q1HR PRN IVP ANXIETY / AGITATION Last administered on 01/19/19at 05:51; Start 01/15/19 at 11:00 Methylnaltrexone [place] (Relistor) 12 mg 1X ONCE SQ Last administered on 01/15/19at 11:45; Start 01/15/19 at 11:15; Stop 01/15/19 at 11:16; Status DC Lorazepam (Ativan Inj) 2 mg PRN Q1HR PRN IVP ANXIETY / AGITATION Last administered on 01/18/19at 23:01; Start 01/15/19 at 12:45 Fentanyl Citrate 30 ml @ 0 mls/hr CONT PRN PRN IV PER PROTOCOL Last administered on 01/20/19at 07:30; Start 01/15/19 at 14:15 Active Scripts Active Belladonna-Opium 16.2-30 Supp (Opium/Belladonna Alkaloids) 1 Each Supp.rect 1 Supp [place] Q12HR 30 Days Polyethylene Glycol 3350 17 Gm Powd.pack 17 Gm PO PRN DAILY PRN 30 Days Colace (Docusate Sodium) 100 Mg Capsule 100 Mg PO DAILY MDD 30 30 Days Reported Methadone Hcl 5 Mg Tablet 1.5 Tab PO Q8HRS Oxycodone Hcl 5 Mg Capsule 1-3 Tab PO PRN Q3HRS PRN Gabapentin 600 Mg Tablet 600 Mg PO BID Prevacid (Lansoprazole) 30 Mg Capsule.dr 30 Mg PO DAILY Cyclobenzaprine Hcl 10 Mg Tablet 10 Mg PO PRN TID PRN Phenergan (Promethazine HCl) 12.5 Mg Supp.rect 12.5 Mg RC PRN Q12HR PRN Ambien (Zolpidem Tartrate) 5 Mg Tablet 1 Tab PO QHS PRN Vitals/I & O Vital Sign - Last 24 Hours 01/19/19 01/19/19 01/19/19 01/19/19 09:29 11:37 12:07 15:00 Temp 98.5 98.5 Resp 22 B/P (MAP) 125/73 (90) 109/59 (76) Pulse Ox 92 92 91 O2 Delivery Nasal Cannula Nasal Cannula Nasal Cannula Nasal Cannula O2 Flow Rate 3.0 3.0 3.0 01/19/19 01/19/19 01/19/19 01/19/19 16:42 17:12 20:00 21:42 Resp 14 Pulse Ox 94 O2 Delivery Nasal Cannula Nasal Cannula Nasal Cannula Nasal Cannula O2 Flow Rate 3.0 3.0 01/19/19 01/19/19 01/19/19 01/19/19 22:12 22:47 22:54 23:54 Temp 98.3 98.3 Pulse 123 Resp 14 16 14 14 B/P (MAP) 105/58 (74) Pulse Ox 95 95 95 95 O2 Delivery Nasal Cannula Nasal Cannula Nasal Cannula Nasal Cannula O2 Flow Rate 4.0 4.0 4.0 4.0 01/20/19 01/20/19 01/20/19 02:49 03:19 07:30 Resp 14 Pulse Ox 95 95 O2 Delivery Room Air Nasal Cannula Nasal Cannula O2 Flow Rate 4.0 4.0 Intake and Output 01/19/19 01/19/19 01/20/19 15:00 23:00 07:00 Intake Total 0 ml 200 ml Output Total 250 ml 1 ml Balance -250 ml 0 ml 199 ml Nutrition Consultation Dietary Evaluation: Comments: Continue w/diet as ordered/as appropriate per goals of comfort care Expected Outcomes/Goals: Nutrition as appropriate per goals of care Malnutrition Findings: Food and Nutrition Intake (Mod: <75% est energy req 7days Weight Status: Obese ALYSSA MARTELL MD Jan 20, 2019 08:28
[2019-01-20] MEDS: PANTOPRAZOLE IV PUSH 40 MG VIAL. IVP SCH (08:50)
[2019-01-20] MEDS: OPIUM/BELLADONNA 30/16.2MG SUPP.RECT. PR SCH ×2 (08:59→11:25)
--- NOTE | 2019-01-20 11:50 | NUR ---
SS following up with discharge planning. SS discussed with pt's RN and met with pt's spouse and family. Inpatient hospice discussed. Pt's spouse reported that pt's care cannot be handled at home and they do not wish to move pt to inpatient hospice house. Pt's spouse reported that they want to stay here at [facility] but do not want to move to the [facility] surgery floors because they do not like the rooms. SS discussed with case project management professional, Carlos Ross, who also discussed with administration and agreement was made that pt could remain in current room and transition to inpatient hospice, GIP. SS discussed with pt's spouse and pt's spouse agreeable to meet with hospice airline security representative to discuss and get informational. Phan Chavez from [facility], ; fax [phone], coming to discuss with pt and family. SS phoned and faxed referral to [facility]. SS will continue to follow for discharge planning.
[2019-01-20] MEDS ORDERED: SCOPOLAMINE 1.5MG PATCH. TD SCH (15:15)
--- NOTE | 2019-01-24 10:21 | DS ---
DATE OF DISCHARGE: 01/20/2019 CHIEF COMPLAINT: Emesis. HISTORY OF PRESENT ILLNESS: The patient is a 39-year-old female with metastatic cervical cancer who had just been discharged from [facility] on 01/13/2019 after treatment for hydronephrosis, pleural effusion, and other complications of her cancer. She was discharged home with palliative home health on the evening of 01/13/2019. She had the onset of emesis shortly after discharge and it continued, so she presented to the Emergency Room. A CT of the abdomen and pelvis and KUB showed a partial small-bowel obstruction. An NG tube was placed and the patient was admitted for further care. HOSPITAL COURSE: The patient's emesis resolved with placement of the NG tube. She was continued n.p.o. with IV fluids for several days. She was noted to have hypercalcemia, which was thought to be due to her malignant process. She was seen in consultation by Gastroenterology, Oncology, and General Surgery all of whom recommended supportive care only. Her bowel function and abdominal exam slowly improved. She actually pulled out her NG tube on 01/18/2019 and it was not replaced as she had no further emesis. She was able to tolerate small amounts of clear liquids, so these were continued. The patient and her family met with the palliative care nurse. The patient was made a DNR and continued with palliative care only. She was not able to be discharged home as her pain required high doses of fentanyl COPYING MACHINE REPAIRER for effective control and this can only be done in the inpatient setting. Options were discussed with the family and it was decided to have her transfer to inpatient hospice care. She was technically discharged and admitted to the same hospital for ongoing care. FINAL DIAGNOSES: Metastatic cervical cancer, partial small-bowel obstruction, malignant pleural effusion, and hydronephrosis. ALYSSA MARTELL MD DR: HARJIT/kristopher JOB#: [id number] / [id number]
== END 2019-01-20 15:49 | disposition hospice, inpatient (51) | DRG 389 ==
LOC: ER 02:57 → 4 NORTH 04:35 → 1 WEST ICU 01-15 15:54 → 2 SOUTH 01-17 18:15
PROVIDERS: ADMIT Family Medicine; ATTEND Family Medicine
PROC: 0D9670Z Drainage of Stomach with Drainage Device, Via Natural or Artificial Opening (ICD-10-PCS; principal; 2019-01-14)
DX: K56.600 Partial intestinal obstruction, unspecified as to cause (principal); J91.0 Malignant pleural effusion; J98.11 Atelectasis; E83.52 Hypercalcemia; C53.9 Malignant neoplasm of cervix uteri, unspecified; Z66 Do not resuscitate; N18.3 Chronic kidney disease, stage 3 (moderate); K64.9 Unspecified hemorrhoids; K21.9 Gastro-esophageal reflux disease without esophagitis; Z51.5 Encounter for palliative care; D63.1 Anemia in chronic kidney disease; F41.9 Anxiety disorder, unspecified; I12.9 Hypertensive chronic kidney disease with stage 1 through stage 4 chronic kidney disease, or unspecified chronic kidney disease; Z90.710 Acquired absence of both cervix and uterus; Z88.8 Allergy status to other drugs, medicaments and biological substances; Z91.013 Allergy to seafood; Z87.891 Personal history of nicotine dependence; Z83.3 Family history of diabetes mellitus; Z82.49 Family history of ischemic heart disease and other diseases of the circulatory system
CPT/HCPCS: 36415; 71045; 74018; 74176; 80053; 83605; 85007; 85025; 96361; 96374; 96376; C9113; J2060; J2212; J2430; J3010; J7030; J7050; 99285-25; G0378

== ENCOUNTER 2019-01-20 16:02 | Inpatient (IN) | payer OTHER ==
[~2019-01-20] VITALS: Ht 167.6 cm; Wt 90.7 kg
[2019-01-20] MEDS ORDERED: PHENOL ORAL SPRAY 177ML BOTTLE. PO PRN (16:30)
[2019-01-20] MEDS ORDERED: PROMETHAZINE 12.5 MG TABLET. PO PRN (16:30)
[2019-01-20] MEDS ORDERED: LORazepam 1 MG TABLET PO PRN (16:30)
[2019-01-20] MEDS ORDERED: ACETAMINOPHEN 650 MG SUPP.RECT. PR PRN (16:30)
[2019-01-20] MEDS ORDERED: BISACODYL 10 MG SUPP.RECT. PR PRN (16:30)
[2019-01-20] MEDS ORDERED: NALOXONE 0.4 MG/ML VIAL. IV PRN (16:30)
[2019-01-20] MEDS: SCOPOLAMINE 1.5MG PATCH. TD SCH (18:04)
[2019-01-20 20:10] VITALS: BP 118/66
[2019-01-20] MEDS: OPIUM/BELLADONNA 30/16.2MG SUPP.RECT. PR SCH ×2 (20:32→21:00)
[2019-01-21] MEDS: IV NORMAL SALINE 1000ML BAG 1,000 ML IV SCH ×2 (01:34→16:27)
--- NOTE | 2019-01-21 05:18 | NUR ---
Vitals signs only 1x per shift per family request.
[2019-01-21 07:00] VITALS: BP 110/61
[2019-01-21] MEDS: OPIUM/BELLADONNA 30/16.2MG SUPP.RECT. PR SCH (09:00)
[2019-01-21] MEDS: PANTOPRAZOLE IV PUSH 40 MG VIAL. IVP SCH (09:05)
--- NOTE | 2019-01-21 09:13 | PDOC ---
PROGRESS NOTES Subjective Subjective Patient resting quietly, does not awaken with exam. Objective Objective Vital Signs Date Time Temp Pulse Resp B/P (MAP) Pulse Ox O2 Delivery O2 Flow Rate FiO2 01/21/19 07:00 98.6 92 20 110/61 (77) 86 Room Air 98.6 01/21/19 04:44 3.0 Intake and Output 01/21/19 07:00 Intake Total 77 ml Balance 77 ml Intake IV Total 77 ml # Voids 2 Physical Exam Abdomen: Normal bowel sounds, Soft, No tenderness Heart: Regular rate Extremities: Other (mild chronic diffuse edema) General: No acute distress Lungs: Clear to auscultation (anteriorly) Plan Plan of Care 1. Metastatic cervical cancer - presently stable. Now on inpatient hospice status. Continue present medications. Change B&O suppositories to prn as family reports patient has much discomfort with them. Continue with po fluids as tolera galilea. Comment Review of Relevant I have reviewed the following items heather (where applicable) has been applied. Medications Current Medications Lorazepam (Ativan) 1 mg PRN Q4HRS PRN PO ANXIETY / AGITATION; Start 01/20/19 at 16:30 Bisacodyl (Dulcolax Supp) 10 mg PRN DAILY PRN [place] CONSTIPATION; Start 01/20/19 at 16:30 Acetaminophen (Tylenol Supp) 650 mg PRN Q4HRS PRN [place] MILD PAIN / TEMP; Start 01/20/19 at 16:30 Fentanyl Citrate 30 ml @ 0 mls/hr CONT PRN PRN IV SEE COMMENTS; Start 01/20/19 at 16:30; Stop 01/20/19 at 17:09; Status DC Naloxone HCl (Narcan) 0.4 mg PRN Q2MIN PRN IV SEE INSTRUCTIONS; Start 01/20/19 at 16:30 Sodium Chloride 1,000 ml @ 25 mls/hr Q24H IV Last administered on 01/21/19at 01:34; Start 01/20/19 at 16:27 Scopolamine (Transderm-Scop) 1 patch Q3DAYS TD Last administered on 01/20/19at 18:04; Start 01/20/19 at 18:00 Lorazepam (Ativan Inj) 2 mg PRN Q1HR PRN IVP ANXIETY / AGITATION; Start 01/20/19 at 16:30 Lorazepam (Ativan Inj) 1 mg PRN Q1HR PRN IVP ANXIETY / AGITATION Last administered on 01/21/19at 02:33; Start 01/20/19 at 16:30 Phenol (Chloraseptic) 1 spray PRN Q2HR PRN PO SORE THROAT; Start 01/20/19 at 16:30 Belladonna Alkaloids/Opium (B & O) 1 supp BID [place] ; Start 01/20/19 at 21:00 Promethazine HCl (Phenergan) 12.5 mg PRN BID PRN PO NAUSEA/VOMITING; Start 01/20/19 at 16:30 Pantoprazole Sodium (PROTONIX VIAL for IV PUSH) 40 mg DAILYAC IVP ; Start 01/21/19 at 07:30 Fentanyl Citrate 30 ml @ 0 mls/hr CONT PRN PRN IV SEE COMMENTS Last administered on 01/21/19at 04:14; Start 01/20/19 at 17:15 Active Scripts Active Belladonna-Opium 16.2-30 Supp (Opium/Belladonna Alkaloids) 1 Each Supp.rect 1 Supp [place] Q12HR 30 Days Polyethylene Glycol 3350 17 Gm Powd.pack 17 Gm PO PRN DAILY PRN 30 Days Colace (Docusate Sodium) 100 Mg Capsule 100 Mg PO DAILY MDD 30 30 Days Reported Methadone Hcl 5 Mg Tablet 1.5 Tab PO Q8HRS Oxycodone Hcl 5 Mg Capsule 1-3 Tab PO PRN Q3HRS PRN Gabapentin 600 Mg Tablet 600 Mg PO BID Prevacid (Lansoprazole) 30 Mg Capsule.dr 30 Mg PO DAILY Cyclobenzaprine Hcl 10 Mg Tablet 10 Mg PO PRN TID PRN Phenergan (Promethazine HCl) 12.5 Mg Supp.rect 12.5 Mg RC PRN Q12HR PRN Ambien (Zolpidem Tartrate) 5 Mg Tablet 1 Tab PO QHS PRN Vitals/I & O Vital Sign - Last 24 Hours 01/20/19 01/20/19 01/20/19 01/20/19 18:11 18:41 20:10 22:44 Temp 98.4 98.4 Pulse 89 Resp 14 14 14 14 B/P (MAP) 118/66 (83) Pulse Ox 91 91 91 O2 Delivery Nasal Cannula Nasal Cannula Room Air O2 Flow Rate 3.0 3.0 3.0 01/20/19 01/21/19 01/21/19 10/25/19 23:14 04:14 04:44 07:00 Temp 98.6 98.6 Pulse 92 Resp 14 14 14 20 B/P (MAP) 110/61 (77) Pulse Ox 91 91 91 86 O2 Delivery Nasal Cannula Nasal Cannula Room Air O2 Flow Rate 3.0 3.0 3.0 Intake and Output 01/20/19 01/20/19 01/21/19 15:00 23:00 07:00 Intake Total 30 ml 47 ml Balance 30 ml 47 ml ALYSSA MARTELL MD Jan 21, 2019 09:13
[2019-01-21] MEDS ORDERED: OPIUM/BELLADONNA 30/16.2MG SUPP.RECT. PR PRN (09:30)
--- NOTE | 2019-01-21 09:32 | HP ---
ADMIT DATE: 01/21/2019 INTERIM HISTORY AND PHYSICAL HISTORY OF PRESENT ILLNESS: The patient is a 39-year-old female with metastatic cervical cancer, who is on comfort care only. She had been admitted to [facility] on 01/14/2019 due to a small bowel obstruction and other symptoms associated with her metastatic cancer. She was placed on comfort care and made a DNR. On 01/20/2019, her family elected to have her placed on inpatient hospice care, so she was technically discharged from the hospital and readmitted for inpatient hospice care. PAST MEDICAL HISTORY: Metastatic cervical cancer, malignant pleural effusion, hydronephrosis, chronic kidney disease stage 3, chronic anemia, small bowel obstruction. The patient's history and medications remain unchanged from her discharge and readmission yesterday. PHYSICAL EXAMINATION: GENERAL: The patient is resting quietly in bed. She does not awaken during exam. CHEST: Clear to auscultation anteriorly. CARDIOVASCULAR: Regular rhythm. ABDOMEN: Soft, nontender, normoactive bowel sounds are present. EXTREMITIES: Show mild chronic edema. ASSESSMENT AND PLAN: 1. Metastatic cervical cancer. The patient is in the dying process. We will continue her with comfort care on inpatient hospice. 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 Other medications will be continued for symptom control. She has chronic bladder spasms from her metastatic cancer. She had been receiving B and O suppositories for this, which seemed to help; however, family reports that they now cause much discomfort, so we will make these as needed rather than scheduled. Her small bowel obstruction appears to have improved and she is tolerating a small amount of clear liquids and these can be continued. ALYSSA MARTELL MD DR: HARJIT/kristopher JOB#: [id number] / [id number] BENIGNO
--- NOTE | 2019-01-21 09:44 | PDOC ---
SUBJECTIVE Subjective S: comfortable, on hospice, still getting up O: Gen: resting in bed, NAD resp: breathing comfortably on O2 A/P: 39 yo female w/ met cerv ca, terminal on hospice care cerv ca: hospice per pall care agitation: ativan prn 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 thank you kindly, please call for ?s. OBJECTIVE Vital Signs Vital Signs Date Time Temp Pulse Resp B/P (MAP) Pulse Ox O2 Delivery O2 Flow Rate FiO2 01/21/19 07:00 98.6 92 20 110/61 (77) 86 Room Air 98.6 01/21/19 04:44 14 91 3.0 01/21/19 04:14 14 91 Nasal Cannula 3.0 01/20/19 23:14 14 91 Nasal Cannula 3.0 01/20/19 22:44 14 91 3.0 01/20/19 20:10 98.4 89 14 118/66 (83) 91 Room Air 98.4 01/20/19 18:41 14 91 Nasal Cannula 3.0 01/20/19 18:11 14 Nasal Cannula 3.0 I & O Intake and Output 01/21/19 07:00 Intake Total 77 ml Balance 77 ml Intake IV Total 77 ml # Voids 2 POWER MEHTA MD Jan 21, 2019 09:44
[2019-01-21] MEDS ORDERED: fentaNYL STANDARD PCA 600 MCG/30 ML PCA.SYRING IV ONE (15:00)
[2019-01-21] MEDS ORDERED: diphenhydrAMINE HCL 25 MG CAPSULE PO PRN (17:30)
[2019-01-21] MEDS ORDERED: SODIUM CHL/ALOE VERA NASAL GEL 14.1GM TUBE. NS PRN (18:15)
[2019-01-21 19:20] VITALS: BP 114/63
[2019-01-22 07:00] VITALS: BP 110/63
[2019-01-22] MEDS: PANTOPRAZOLE IV PUSH 40 MG VIAL. IVP SCH (08:10)
--- NOTE | 2019-01-22 11:32 | PDOC ---
PROGRESS NOTES Subjective Subjective Patient in and out. Family and patient without any current needs. Objective Objective Vital Signs Date Time Temp Pulse Resp B/P (MAP) Pulse Ox O2 Delivery O2 Flow Rate FiO2 01/22/19 07:30 95 3.0 01/22/19 07:00 98.3 118 22 110/63 (79) Nasal Cannula 98.3 Intake and Output 01/22/19 07:00 # Voids 3 Physical Exam Physical Exam Deferred Assessment Assessment Metastatic cervical cancer. Plan Plan of Care Comfort care Comment Review of Relevant I have reviewed the following items heather (where applicable) has been applied. Medications Current Medications Lorazepam (Ativan) 1 mg PRN Q4HRS PRN PO ANXIETY / AGITATION; Start 01/20/19 at 16:30 Bisacodyl (Dulcolax Supp) 10 mg PRN DAILY PRN [place] CONSTIPATION; Start 01/20/19 at 16:30 Acetaminophen (Tylenol Supp) 650 mg PRN Q4HRS PRN [place] MILD PAIN / TEMP; Start 01/20/19 at 16:30 Fentanyl Citrate 30 ml @ 0 mls/hr CONT PRN PRN IV SEE COMMENTS; Start 01/20/19 at 16:30; Stop 01/20/19 at 17:09; Status DC Naloxone HCl (Narcan) 0.4 mg PRN Q2MIN PRN IV SEE INSTRUCTIONS; Start 01/20/19 at 16:30 Sodium Chloride 1,000 ml @ 25 mls/hr Q24H IV Last administered on 01/21/19at 01:34; Start 01/20/19 at 16:27 Scopolamine (Transderm-Scop) 1 patch Q3DAYS TD Last administered on 01/20/19at 18:04; Start 01/20/19 at 18:00 Lorazepam (Ativan Inj) 2 mg PRN Q1HR PRN IVP ANXIETY / AGITATION; Start 01/20/19 at 16:30 Lorazepam (Ativan Inj) 1 mg PRN Q1HR PRN IVP ANXIETY / AGITATION Last administered on 01/22/19at 06:58; Start 01/20/19 at 16:30 Phenol (Chloraseptic) 1 spray PRN Q2HR PRN PO SORE THROAT; Start 01/20/19 at 16:30 Belladonna Alkaloids/Opium (B & O) 1 supp BID OR ; Start 01/20/19 at 21:00; Stop 01/21/19 at 09:22; Status DC Promethazine HCl (Phenergan) 12.5 mg PRN BID PRN PO NAUSEA/VOMITING; Start 01/20/19 at 16:30 Pantoprazole Sodium (PROTONIX VIAL for IV PUSH) 40 mg DAILYAC IVP Last administered on 01/22/19at 08:10; Start 01/21/19 at 07:30 Fentanyl Citrate 30 ml @ 0 mls/hr CONT PRN PRN IV SEE COMMENTS Last administered on 01/22/19at 06:58; Start 01/20/19 at 17:15 Belladonna Alkaloids/Opium (B & O) 1 supp PRN BID PRN OR bladder spasm; Start 01/21/19 at 09:30 Diphenhydramine HCl (Benadryl) 50 mg PRN Q8HRS PRN PO INSOMNIA; Start 01/21/19 at 17:30 Lorazepam (Ativan Inj) 2 mg DAILY@2200 IVP Last administered on 01/21/19at 21:5 4; Start 01/21/19 at 22:00 Sodium Chloride ([place] Saline Nasal) 1 kindra PRN Q1HR PRN NS NASAL CONGESTION; Start 01/21/19 at 18:15 Fentanyl Citrate (Fentanyl 600 Mcg/30 ml ENVIRONMENTAL REMEDIATION ENGINEER) 600 mcg STK-MED ONCE IV ; Start 01/21/19 at 15:00; Stop 01/21/19 at 18:19; Status DC Active Scripts Active Belladonna-Opium 16.2-30 Supp (Opium/Belladonna Alkaloids) 1 Each Supp.rect 1 Supp [place] Q12HR 30 Days Polyethylene Glycol 3350 17 Gm Powd.pack 17 Gm PO PRN DAILY PRN 30 Days Colace (Docusate Sodium) 100 Mg Capsule 100 Mg PO DAILY MDD 30 30 Days Reported Methadone Hcl 5 Mg Tablet 1.5 Tab PO Q8HRS Oxycodone Hcl 5 Mg Capsule 1-3 Tab PO PRN Q3HRS PRN Gabapentin 600 Mg Tablet 600 Mg PO BID Prevacid (Lansoprazole) 30 Mg Capsule.dr 30 Mg PO DAILY Cyclobenzaprine Hcl 10 Mg Tablet 10 Mg PO PRN TID PRN Phenergan (Promethazine HCl) 12.5 Mg Supp.rect 12.5 Mg RC PRN Q12HR PRN Ambien (Zolpidem Tartrate) 5 Mg Tablet 1 Tab PO QHS PRN Vitals/I & O Vital Sign - Last 24 Hours 01/21/19 01/21/19 01/21/19 01/21/19 11:39 15:00 18:37 19:20 Temp 97.5 97.5 Pulse 124 Resp 22 B/P (MAP) 114/63 (80) Pulse Ox 86 86 86 95 O2 Delivery Nasal Cannula O2 Flow Rate 3.0 3.0 3.0 3.5 01/21/19 01/21/19 01/22/19 01/22/19 19:38 20:08 01:29 01:59 Resp 20 18 20 20 O2 Delivery Nasal Cannula O2 Flow Rate 3.0 3.0 3.0 01/22/19 01/22/19 01/22/19 06:58 07:00 07:30 Temp 98.3 98.3 Pulse 118 Resp 20 22 B/P (MAP) 110/63 (79) Pulse Ox 96 95 O2 Delivery Nasal Cannula O2 Flow Rate 3.5 3.0 WINNIE VAZ MD Jan 22, 2019 11:32
[2019-01-22] MEDS ORDERED: fentaNYL STANDARD PCA 600 MCG/30 ML PCA.SYRING IV ONE ×3 (12:31→21:58)
--- NOTE | 2019-01-22 13:07 | NUR ---
Vital signs taken and WNL, pt resting comfortably, but easily aroused to name, able to follow demands. 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 Multiple family members remain at bedside. Pt resting in recliner.
[2019-01-22] MEDS: IV NORMAL SALINE 1000ML BAG 1,000 ML IV SCH (15:43)
[2019-01-22 19:53] VITALS: BP 129/58
[2019-01-23] MEDS ORDERED: fentaNYL STANDARD PCA 600 MCG/30 ML PCA.SYRING IV ONE ×4 (03:09→19:30)
[2019-01-23] MEDS: SCOPOLAMINE 1.5MG PATCH. TD SCH (09:18)
[2019-01-23] MEDS: PANTOPRAZOLE IV PUSH 40 MG VIAL. IVP SCH (09:18)
--- NOTE | 2019-01-23 10:26 | PDOC ---
PROGRESS NOTES Subjective Subjective Patient on Toilet and get sponge bath. No change Family present for support. Objective Objective Vital Signs Date Time Temp Pulse Resp B/P (MAP) Pulse Ox O2 Delivery O2 Flow Rate FiO2 01/23/19 09:55 18 93 2.0 01/23/19 03:42 Nasal Cannula 01/22/19 19:53 98.3 124 129/58 (81) 98.3 Intake and Output 01/23/19 07:00 Intake Total 50 ml Balance 50 ml Intake Oral 50 ml Physical Exam Physical Exam Deferred Assessment Assessment Cervical CA with mets Plan Plan of Care Comfort care Comment Review of Relevant I have reviewed the following items heather (where applicable) has been applied. Medications Current Medications Lorazepam (Ativan) 1 mg PRN Q4HRS PRN PO ANXIETY / AGITATION; Start 01/20/19 at 16:30 Bisacodyl (Dulcolax Supp) 10 mg PRN DAILY PRN [place] CONSTIPATION; Start 01/20/19 at 16:30 Acetaminophen (Tylenol Supp) 650 mg PRN Q4HRS PRN [place] MILD PAIN / TEMP; Start 01/20/19 at 16:30 Fentanyl Citrate 30 ml @ 0 mls/hr CONT PRN PRN IV SEE COMMENTS; Start 01/20/19 at 16:30; Stop 01/20/19 at 17:09; Status DC Naloxone HCl (Narcan) 0.4 mg PRN Q2MIN PRN IV SEE INSTRUCTIONS; Start 01/20/19 at 16:30 Sodium Chloride 1,000 ml @ 25 mls/hr Q24H IV Last administered on 01/22/19at 15:43; Start 01/20/19 at 16:27 Scopolamine (Transderm-Scop) 1 patch Q3DAYS TD Last administered on 01/23/19at 09:18; Start 01/20/19 at 18:00 Lorazepam (Ativan Inj) 2 mg PRN Q1HR PRN IVP ANXIETY / AGITATION; Start 01/20/19 at 16:30 Lorazepam (Ativan Inj) 1 mg PRN Q1HR PRN IVP ANXIETY / AGITATION Last administered on 01/22/19at 06:58; Start 01/20/19 at 16:30 Phenol (Chloraseptic) 1 spray PRN Q2HR PRN PO SORE THROAT; Start 01/20/19 at 16:30 Belladonna Alkaloids/Opium (B & O) 1 supp BID [place] ; Start 01/20/19 at 21:00; Stop 01/21/19 at 09:22; Status DC Promethazine HCl (Phenergan) 12.5 mg PRN BID PRN PO NAUSEA/VOMITING; Start 01/20/19 at 16:30 Pantoprazole Sodium (PROTONIX VIAL for IV PUSH) 40 mg DAILYAC IVP Last administered on 01/23/19at 09:18; Start 01/21/19 at 07:30 Fentanyl Citrate 30 ml @ 0 mls/hr CONT PRN PRN IV SEE COMMENTS Last administered on 01/23/19at 09:18; Start 01/20/19 at 17:15 Belladonna Alkaloids/Opium (B & O) 1 supp PRN BID PRN [place] bladder spasm; Start 01/21/19 at 09:30 Diphenhydramine HCl (Benadryl) 50 mg PRN Q8HRS PRN PO INSOMNIA; Start 01/21/19 at 17:30 Lorazepam (Ativan Inj) 2 mg DAILY@2200 IVP Last administered on 01/23/19at 03:09; Start 01/21/19 at 22:00 Sodium Chloride ([place] Saline Nasal) 1 kindra PRN Q1HR PRN NS NASAL CONGESTION; Start 01/21/19 at 18:15 Fentanyl Citrate (Fentanyl 600 Mcg/30 ml POULTRY DRESSER) 600 mcg STK-MED ONCE IV ; Start 01/21/19 at 15:00; Stop 01/21/19 at 18:19; Status DC Active Scripts Active Belladonna-Opium 16.2-30 Supp (Opium/Belladonna Alkaloids) 1 Each Supp.rect 1 Supp [place] Q12HR 30 Days Polyethylene Glycol 3350 17 Gm Powd.pack 17 Gm PO PRN DAILY PRN 30 Days Colace (Docusate Sodium) 100 Mg Capsule 100 Mg PO DAILY MDD 30 30 Days Reported Methadone Hcl 5 Mg Tablet 1.5 Tab PO Q8HRS Oxycodone Hcl 5 Mg Capsule 1-3 Tab PO PRN Q3HRS PRN Gabapentin 600 Mg Tablet 600 Mg PO BID Prevacid (Lansoprazole) 30 Mg Capsule.dr 30 Mg PO DAILY Cyclobenzaprine Hcl 10 Mg Tablet 10 Mg PO PRN TID PRN Phenergan (Promethazine HCl) 12.5 Mg Supp.rect 12.5 Mg RC PRN Q12HR PRN Ambien (Zolpidem Tartrate) 5 Mg Tablet 1 Tab PO QHS PRN Vitals/I & O Vital Sign - Last 24 Hours 01/22/19 01/22/19 01/22/19 01/22/19 12:31 13:07 17:03 17:33 Pulse Ox 95 95 95 95 O2 Flow Rate 3.0 3.0 3.0 3.0 01/22/19 01/22/19 01/22/19 01/23/19 19:53 21:58 22:30 03:09 Temp 98.3 98.3 Pulse 124 Resp 16 16 16 B/P (MAP) 129/58 (81) Pulse Ox 93 O2 Delivery Room Air Nasal Cannula Nasal Cannula O2 Flow Rate 2.0 2.0 01/23/19 01/23/19 01/23/19 03:42 09:18 09:55 Resp 16 18 Pulse Ox 93 93 O2 Delivery Nasal Cannula O2 Flow Rate 2.0 2.0 2.0 Intake and Output 01/22/19 01/22/19 01/23/19 15:00 23:00 07:00 Intake Total 50 ml Balance 50 ml WINNIE VAZ MD Jan 23, 2019 10:26
[2019-01-23 14:00] VITALS: BP 114/61
--- NOTE | 2019-01-23 14:00 | NUR ---
Pt resting in bed with eyes closed, responds to verbal stimuli. VSS at this time. 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 Multiple family members and friends at bedside, with friends and family coming and going. Will continue with pt needs and comfort care at this time. Pt and family deny further needs at this time.
[2019-01-23] MEDS: IV NORMAL SALINE 1000ML BAG 1,000 ML IV SCH (14:11)
[2019-01-23 21:28] VITALS: BP 108/60
[2019-01-24] MEDS ORDERED: fentaNYL STANDARD PCA 600 MCG/30 ML PCA.SYRING IV ONE ×2 (00:14→04:31)
[2019-01-24] MEDS: PANTOPRAZOLE IV PUSH 40 MG VIAL. IVP SCH (07:38)
--- NOTE | 2019-01-24 08:38 | PDOC ---
PROGRESS NOTES Subjective Subjective Patient awake, does not appear oriented to place or time. Family reports she is having hallucinations at times. Objective Objective Vital Signs Date Time Temp Pulse Resp B/P (MAP) Pulse Ox O2 Delivery O2 Flow Rate FiO2 01/24/19 07:51 16 Nasal Cannula 2.0 01/23/19 21:28 116 108/60 (76) 98 01/22/19 19:53 98.3 98.3 Intake and Output 01/24/19 07:00 Intake Total 100 ml Balance 100 ml Intake Oral 100 ml Physical Exam Abdomen: Normal bowel sounds, Soft Heart: Regular rate Extremities: Other (scant chronic edema bilateral LE's) General: No acute distress Lungs: Other (BS decreased at bases, clear anteriorly) Plan Plan of Care 1. Metastatic cervical cancer - appears comfortable, tolerating small amount of po clear liquids. Continue present hospice care with Fentanyl EXTERNAL AUDITOR. Family in agreement with present care. Comment Review of Relevant I have reviewed the following items heather (where applicable) has been applied. Medications Current Medications Lorazepam (Ativan) 1 mg PRN Q4HRS PRN PO ANXIETY / AGITATION; Start 01/20/19 at 16:30 Bisacodyl (Dulcolax Supp) 10 mg PRN DAILY PRN [place] CONSTIPATION; Start 01/20/19 at 16:30 Acetaminophen (Tylenol Supp) 650 mg PRN Q4HRS PRN [place] MILD PAIN / TEMP; Start 01/20/19 at 16:30 Fentanyl Citrate 30 ml @ 0 mls/hr CONT PRN PRN IV SEE COMMENTS; Start 01/20/19 at 16:30; Stop 01/20/19 at 17:09; Status DC Naloxone HCl (Narcan) 0.4 mg PRN Q2MIN PRN IV SEE INSTRUCTIONS; Start 01/20/19 at 16:30 Sodium Chloride 1,000 ml @ 25 mls/hr Q24H IV Last administered on 01/23/19at 14:11; Start 01/20/19 at 16:27 Scopolamine (Transderm-Scop) 1 patch Q3DAYS TD Last administered on 01/23/19at 09:18; Start 01/20/19 at 18:00 Lorazepam (Ativan Inj) 2 mg PRN Q1HR PRN IVP ANXIETY / AGITATION SEVERE; Start 01/20/19 at 16:30 Lorazepam (Ativan Inj) 1 mg PRN Q1HR PRN IVP ANXIETY / AGITATION MILD-MOD Last administered on 01/24/19at 04:29; Start 01/20/19 at 16:30 Phenol (Chloraseptic) 1 spray PRN Q2HR PRN PO SORE THROAT; Start 01/20/19 at 1 6:30 Belladonna Alkaloids/Opium (B & O) 1 supp BID [place] ; Start 01/20/19 at 21:00; Stop 01/21/19 at 09:22; Status DC Promethazine HCl (Phenergan) 12.5 mg PRN BID PRN PO NAUSEA/VOMITING; Start 01/20/19 at 16:30 Pantoprazole Sodium (PROTONIX VIAL for IV PUSH) 40 mg DAILYAC IVP Last administered on 01/24/19at 07:38; Start 01/21/19 at 07:30 Fentanyl Citrate 30 ml @ 0 mls/hr CONT PRN PRN IV SEE COMMENTS Last administered on 01/24/19at 07:51; Start 01/20/19 at 17:15 Belladonna Alkaloids/Opium (B & O) 1 supp PRN BID PRN [place] bladder spasm; Start 01/21/19 at 09:30 Diphenhydramine HCl (Benadryl) 50 mg PRN Q8HRS PRN PO INSOMNIA; Start 01/21/19 at 17:30 Lorazepam (Ativan Inj) 2 mg DAILY@2200 IVP Last administered on 01/23/19at 23:08; Start 01/21/19 at 22:00 Sodium Chloride ([place] Saline Nasal) 1 kindra PRN Q1HR PRN NS NASAL CONGESTION; Start 01/21/19 at 18:15 Fentanyl Citrate (Fentanyl 600 Mcg/30 ml EXTERNAL AUDITOR) 600 mcg STK-MED ONCE IV ; Start 01/21/19 at 15:00; Stop 01/21/19 at 18:19; Status DC Active Scripts Active Belladonna-Opium 16.2-30 Supp (Opium/Belladonna Alkaloids) 1 Each Supp.rect 1 Supp [place] Q12HR 30 Days Polyethylene Glycol 3350 17 Gm Powd.pack 17 Gm PO PRN DAILY PRN 30 Days Colace (Docusate Sodium) 100 Mg Capsule 100 Mg PO DAILY MDD 30 30 Days Reported Methadone Hcl 5 Mg Tablet 1.5 Tab PO Q8HRS Oxycodone Hcl 5 Mg Capsule 1-3 Tab PO PRN Q3HRS PRN Gabapentin 600 Mg Tablet 600 Mg PO BID Prevacid (Lansoprazole) 30 Mg Capsule.dr 30 Mg PO DAILY Cyclobenzaprine Hcl 10 Mg Tablet 10 Mg PO PRN TID PRN Phenergan (Promethazine HCl) 12.5 Mg Supp.rect 12.5 Mg RC PRN Q12HR PRN Ambien (Zolpidem Tartrate) 5 Mg Tablet 1 Tab PO QHS PRN Vitals/I & O Vital Sign - Last 24 Hours 01/23/19 01/23/19 01/23/19 01/23/19 09:18 09:55 14:00 14:14 Pulse 113 Resp 18 18 B/P (MAP) 114/61 (78) Pulse Ox 93 93 92 93 O2 Delivery Nasal Cannula O2 Flow Rate 2.0 2.0 3.0 2.0 01/23/19 01/23/19 01/23/19 01/23/19 14:46 19:30 20:00 21:28 Pulse 116 B/P (MAP) 108/60 (76) Pulse Ox 93 98 O2 Delivery Nasal Cannula O2 Flow Rate 2.0 2.0 2.0 3.0 01/24/19 01/24/19 01/24/19 01/24/19 00:14 00:44 04:31 05:01 O2 Delivery Nasal Cannula Nasal Cannula Nasal Cannula O2 Flow Rate 2.0 2.0 2.0 2.0 01/24/19 07:51 Resp 16 O2 Delivery Nasal Cannula O2 Flow Rate 2.0 Intake and Output 01/23/19 01/23/19 01/24/19 15:00 23:00 07:00 Intake Total 100 ml Balance 100 ml ALYSSA MARTELL MD Jan 24, 2019 08:38
--- NOTE | 2019-01-24 09:16 | PDOC ---
SUBJECTIVE Subjective S: comfortable, on hospice, still getting up, drinking, had a bite of chocolate yesterday O: Gen: resting in bed, NAD resp: breathing comfortably on O2 A/P: 39 yo female w/ met cerv ca, terminal on hospice care cerv ca: hospice per pall care agitation: ativan prn 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 dispo: cont inpt hospice care for now thank you kindly, please call for ?s. OBJECTIVE Vital Signs Vital Signs Date Time Temp Pulse Resp B/P (MAP) Pulse Ox O2 Delivery O2 Flow Rate FiO2 01/24/19 07:51 16 Nasal Cannula 2.0 01/24/19 05:01 Nasal Cannula 2.0 01/24/19 04:31 2.0 01/24/19 00:44 Nasal Cannula 2.0 01/24/19 00:14 Nasal Cannula 2.0 01/23/19 21:28 116 108/60 (76) 98 Nasal Cannula 3.0 01/23/19 20:00 2.0 01/23/19 19:30 2.0 01/23/19 14:46 93 2.0 01/23/19 14:14 18 93 2.0 01/23/19 14:00 113 114/61 (78) 92 Nasal Cannula 3.0 01/23/19 09:55 18 93 2.0 01/23/19 09:18 93 2.0 I & O Intake and Output 01/24/19 07:00 Intake Total 100 ml Balance 100 ml Intake Oral 100 ml POWER MEHTA MD Jan 24, 2019 09:16
[2019-01-24 10:28] VITALS: BP 107/64
[2019-01-24] MEDS: IV NORMAL SALINE 1000ML BAG 1,000 ML IV SCH (16:27)
[2019-01-24 21:20] VITALS: BP 113/59
[2019-01-25 07:00] VITALS: BP 105/63
--- NOTE | 2019-01-25 07:33 | PDOC ---
PROGRESS NOTES Subjective Subjective Patient awake and resting comfortably. Appears disoriented. Objective Objective Vital Signs Date Time Temp Pulse Resp B/P (MAP) Pulse Ox O2 Delivery O2 Flow Rate FiO2 01/24/19 21:20 97.9 116 16 113/59 (77) 94 Nasal Cannula 3.0 97.9 Intake and Output 01/25/19 07:00 # Voids 3 Physical Exam Abdomen: Soft, No tenderness, Other (few BS present) Heart: Regular rate (mildly tachycardic) Extremities: Other (mild diffuse LE edema) General: Alert, No acute distress Lungs: Other (CTA anteriorly, decreased in bases) Plan Plan of Care 1. Metastatic cervical cancer - appears comfortable with present care. Continue po fluids as desired. Comment Review of Relevant I have reviewed the following items heather (where applicable) has been applied. Medications Current Medications Lorazepam (Ativan) 1 mg PRN Q4HRS PRN PO ANXIETY / AGITATION; Start 01/20/19 at 16:30 Bisacodyl (Dulcolax Supp) 10 mg PRN DAILY PRN [place] CONSTIPATION; Start 01/20/19 at 16:30 Acetaminophen (Tylenol Supp) 650 mg PRN Q4HRS PRN [place] MILD PAIN / TEMP; Start 01/20/19 at 16:30 Fentanyl Citrate 30 ml @ 0 mls/hr CONT PRN PRN IV SEE COMMENTS; Start 01/20/19 at 16:30; Stop 01/20/19 at 17:09; Status DC Naloxone HCl (Narcan) 0.4 mg PRN Q2MIN PRN IV SEE INSTRUCTIONS; Start 01/20/19 at 16:30 Sodium Chloride 1,000 ml @ 25 mls/hr Q24H IV Last administered on 01/23/19at 14:11; Start 01/20/19 at 16:27 Scopolamine (Transderm-Scop) 1 patch Q3DAYS TD Last administered on 01/23/19at 09:18; Start 01/20/19 at 18:00 Lorazepam (Ativan Inj) 2 mg PRN Q1HR PRN IVP ANXIETY / AGITATION SEVERE; Start 01/20/19 at 16:30 Lorazepam (Ativan Inj) 1 mg PRN Q1HR PRN IVP ANXIETY / AGITATION MILD-MOD Last administered on 01/25/19at 02:45; Start 01/20/19 at 16:30 Phenol (Chloraseptic) 1 spray PRN Q2HR PRN PO SORE THROAT; Start 01/20/19 at 16:30 Belladonna Alkaloids/Opium (B & O) 1 supp BID [place] ; Start 01/20/19 at 21:00; Stop 01/21/19 at 09:22; Status DC Promethazine HCl (Phenergan) 12.5 mg PRN BID PRN PO NAUSEA/VOMITING; Start 01/20/19 at 16:30 Pantoprazole Sodium (PROTONIX VIAL for IV PUSH) 40 mg DAILYAC IVP Last administered on 01/24/19at 07:38; Start 01/21/19 at 07:30 Fentanyl Citrate 30 ml @ 0 mls/hr CONT PRN PRN IV SEE COMMENTS Last administered on 01/25/19at 05:23; Start 01/20/19 at 17:15 Belladonna Alkaloids/Opium (B & O) 1 supp PRN BID PRN [place] bladder spasm; Start 01/21/19 at 09:30 Diphenhydramine HCl (Benadryl) 50 mg PRN Q8HRS PRN PO INSOMNIA; Start 01/21/19 at 17:30 Lorazepam (Ativan Inj) 2 mg DAILY@2200 IVP Last administered on 01/24/19at 23:33; Start 01/21/19 at 22:00 Sodium Chloride ([place] Saline Nasal) 1 kindra PRN Q1HR PRN NS NASAL CONGESTION; S tart 01/21/19 at 18:15 Fentanyl Citrate (Fentanyl 600 Mcg/30 ml ACETONE RECOVERY WORKER) 600 mcg STK-MED ONCE IV ; Start 01/21/19 at 15:00; Stop 01/21/19 at 18:19; Status DC Active Scripts Active Belladonna-Opium 16.2-30 Supp (Opium/Belladonna Alkaloids) 1 Each Supp.rect 1 Supp [place] Q12HR 30 Days Polyethylene Glycol 3350 17 Gm Powd.pack 17 Gm PO PRN DAILY PRN 30 Days Colace (Docusate Sodium) 100 Mg Capsule 100 Mg PO DAILY MDD 30 30 Days Reported Methadone Hcl 5 Mg Tablet 1.5 Tab PO Q8HRS Oxycodone Hcl 5 Mg Capsule 1-3 Tab PO PRN Q3HRS PRN Gabapentin 600 Mg Tablet 600 Mg PO BID Prevacid (Lansoprazole) 30 Mg Capsule.dr 30 Mg PO DAILY Cyclobenzaprine Hcl 10 Mg Tablet 10 Mg PO PRN TID PRN Phenergan (Promethazine HCl) 12.5 Mg Supp.rect 12.5 Mg RC PRN Q12HR PRN Ambien (Zolpidem Tartrate) 5 Mg Tablet 1 Tab PO QHS PRN Vitals/I & O Vital Sign - Last 24 Hours 01/24/19 01/24/19 01/24/19 01/24/19 07:51 08:21 10:28 12:56 Temp 97.9 97.9 Pulse 117 Resp 16 16 16 16 B/P (MAP) 107/64 (78) Pulse Ox 96 O2 Delivery Nasal Cannula Nasal Cannula Nasal Cannula Nasal Cannula O2 Flow Rate 2.0 2.0 2.0 2.0 01/24/19 01/24/19 01/24/19 01/24/19 13:26 17:10 17:40 21:20 Temp 97.9 97.9 Pulse 116 Resp 16 16 16 16 B/P (MAP) 113/59 (77) Pulse Ox 94 O2 Delivery Nasal Cannula Nasal Cannula Nasal Cannula Nasal Cannula O2 Flow Rate 2.0 2.0 2.0 3.0 ALYSSA MARTELL MD Jan 25, 2019 07:33
[2019-01-25] MEDS: PANTOPRAZOLE IV PUSH 40 MG VIAL. IVP SCH (09:47)
--- NOTE | 2019-01-25 09:51 | PDOC ---
SUBJECTIVE Subjective S: comfortable, on hospice, threw up recently O: Gen: resting in bed, NAD resp: breathing comfortably on O2 A/P: 39 yo female w/ met cerv ca, terminal on hospice care cerv ca: hospice per pall care agitation: ativan prn 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 nausea: prn's, may need scheduled? dispo: cont inpt hospice care for now thank you kindly, please call for ?s. OBJECTIVE Vital Signs Vital Signs Date Time Temp Pulse Resp B/P (MAP) Pulse Ox O2 Delivery O2 Flow Rate FiO2 01/25/19 09:47 94 3.0 01/25/19 07:00 98.4 126 20 105/63 (77) 94 Nasal Cannula 3.0 98.4 01/24/19 21:20 97.9 116 16 113/59 (77) 94 Nasal Cannula 3.0 97.9 01/24/19 17:40 16 Nasal Cannula 2.0 01/24/19 17:10 16 Nasal Cannula 2.0 01/24/19 13:26 16 Nasal Cannula 2.0 01/24/19 12:56 16 Nasal Cannula 2.0 01/24/19 10:28 97.9 117 16 107/64 (78) 96 Nasal Cannula 2.0 97.9 POWER MEHTA MD Jan 25, 2019 09:51
[2019-01-25] MEDS: IV NORMAL SALINE 1000ML BAG 1,000 ML IV SCH (17:23)
[2019-01-25 19:50] VITALS: BP 109/56
[2019-01-26] MEDS ORDERED: fentaNYL STANDARD PCA 600 MCG/30 ML PCA.SYRING IV ONE (06:22)
--- NOTE | 2019-01-26 08:41 | PDOC ---
PROGRESS NOTES Subjective Subjective Family reports patient had increased pain last night, unclear where or why. Appears fairly comfortable this morning. Emesis x1 yesterday. Objective Objective Vital Signs Date Time Temp Pulse Resp B/P (MAP) Pulse Ox O2 Delivery O2 Flow Rate FiO2 01/26/19 08:07 94 3.0 01/26/19 06:54 18 Nasal Cannula 01/25/19 19:50 97.7 116 109/56 (73) 97.7 Intake and Output 01/26/19 07:00 Output Total 120 ml Balance -120 ml Output Emesis 120 ml # Voids 5 Physical Exam Abdomen: Soft, Other (few BS present) Heart: Regular rate Extremities: Other (mild diffuse edema bilateral LE's) General: Alert, No acute distress Lungs: Other (CTA anteriorly, diminished in bases) Plan Plan of Care 1. Metastatic cervical cancer - reason for increased pain last night unclear, seems at baseline now. Nursing will adjust CAE ENGINEER today to provide more medication if needed. Continue small amount of clears if tolerated. Hospice has requested family meeting on Thursday at 8AM to discuss ongoing care and options for her. Comment Review of Relevant I have reviewed the following items heather (where applicable) has been applied. Medications Current Medications Lorazepam (Ativan) 1 mg PRN Q4HRS PRN PO ANXIETY / AGITATION; Start 01/20/19 at 16:30 Bisacodyl (Dulcolax Supp) 10 mg PRN DAILY PRN [place] CONSTIPATION; Start 01/20/19 at 16:30 Acetaminophen (Tylenol Supp) 650 mg PRN Q4HRS PRN [place] MILD PAIN / TEMP; Start 01/20/19 at 16:30 Fentanyl Citrate 30 ml @ 0 mls/hr CONT PRN PRN IV SEE COMMENTS; Start 01/20/19 at 16:30; Stop 01/20/19 at 17:09; Status DC Naloxone HCl (Narcan) 0.4 mg PRN Q2MIN PRN IV SEE INSTRUCTIONS; Start 01/20/19 at 16:30 Sodium Chloride 1,000 ml @ 25 mls/hr Q24H IV Last administered on 01/25/19at 17:23; Start 01/20/19 at 16:27 Scopolamine (Transderm-Scop) 1 patch Q3DAYS TD Last administered on 01/23/19at 09:18; Start 01/20/19 at 18:00 Lorazepam (Ativan Inj) 2 mg PRN Q1HR PRN IVP ANXIETY / AGITATION SEVERE Last administered on 01/25/19at 22:05; Start 01/20/19 at 16:30 Lorazepam (Ativan Inj) 1 mg PRN Q1HR PRN IVP ANXIETY / AGITATION MILD-MOD Last administered on 01/26/19at 03:05; Start 01/20/19 at 16:30 Phenol (Chloraseptic) 1 spray PRN Q2HR PRN PO SORE THROAT; Start 01/20/19 at 16:30 Belladonna Alkaloids/Opium (B & O) 1 supp BID [place] ; Start 01/20/19 at 21:00; Stop 01/21/19 at 09:22; Status DC Promethazine HCl (Phenergan) 12.5 mg PRN BID PRN PO NAUSEA/VOMITING; Start 01/20/19 at 16:30 Pantoprazole Sodium (PROTONIX VIAL for IV PUSH) 40 mg DAILYAC IVP Last administered on 01/25/19at 09:47; Start 01/21/19 at 07:30 Fentanyl Citrate 30 ml @ 0 mls/hr CONT PRN PRN IV SEE COMMENTS Last administered on 01/26/19at 06:54; Start 01/20/19 at 17:15 Belladonna Alkaloids/Opium (B & O) 1 supp PRN BID PRN [place] bladder spasm; Start 01/21/19 at 09:30 Diphenhydramine HCl (Benadryl) 50 mg PRN Q8HRS PRN PO INSOMNIA; Start 01/21/19 at 17:30 Lorazepam (Ativan Inj) 2 mg DAILY@2200 IVP Last administered on 01/24/19at 23:33; Start 01/21/19 at 22:00 Sodium Chloride ([place] Saline Nasal) 1 kindra PRN Q1HR PRN NS NASAL CONGESTION; Start 01/21/19 at 18:15 Fentanyl Citrate (Fentanyl 600 Mcg/30 ml CAE ENGINEER) 600 mcg STK-MED ONCE IV ; Start 01/21/19 at 15:00; Stop 01/21/19 at 18:19; Status DC Fentanyl Citrate (Fentanyl 600 Mcg/30 ml CAE ENGINEER) 600 mcg STK-MED ONCE IV ; Start 01/22/19 at 12:31; Stop 01/25/19 at 11:39; Status DC Fentanyl Citrate (Fentanyl 600 Mcg/30 ml CAE ENGINEER) 600 mcg STK-MED ONCE IV ; Start 01/22/19 at 17:03; Stop 01/25/19 at 11:40; Status DC Fentanyl Citrate (Fentanyl 600 Mcg/30 ml CAE ENGINEER) 600 mcg STK-MED ONCE IV ; Start 01/22/19 at 21:58; Stop 01/25/19 at 11:50; Status DC Fentanyl Citrate (Fentanyl 600 Mcg/30 ml CAE ENGINEER) 600 mcg STK-MED ONCE IV ; Start 01/23/19 at 03:09; Stop 01/25/19 at 11:51; Status DC Fentanyl Citrate (Fentanyl 600 Mcg/30 ml CAE ENGINEER) 600 mcg STK-MED ONCE IV ; Start 01/23/19 at 09:18; Stop 01/25/19 at 11:52; Status DC Fentanyl Citrate (Fentanyl 600 Mcg/30 ml CAE ENGINEER) 600 mcg STK-MED ONCE IV ; Start 01/23/19 at 14:14; Stop 01/25/19 at 11:53; Status DC Fentanyl Citrate (Fentanyl 600 Mcg/30 ml CAE ENGINEER) 600 mcg STK-MED ONCE IV ; Start 01/23/19 at 19:30; Stop 01/25/19 at 11:54; Status DC Fentanyl Citrate (Fentanyl 600 Mcg/30 ml CAE ENGINEER) 600 mcg STK-MED ONCE IV ; Start 01/24/19 at 00:14; Stop 01/25/19 at 11:54; Status DC Fentanyl Citrate (Fentanyl 600 Mcg/30 ml CAE ENGINEER) 600 mcg STK-MED ONCE IV ; Start 01/24/19 at 04:31; Stop 01/25/19 at 11:55; Status DC Active Scripts Active Belladonna-Opium 16.2-30 Supp (Opium/Belladonna Alkaloids) 1 Each Supp.rect 1 Supp [place] Q12HR 30 Days Polyethylene Glycol 3350 17 Gm Powd.pack 17 Gm PO PRN DAILY PRN 30 Days Colace (Docusate Sodium) 100 Mg Capsule 100 Mg PO DAILY MDD 30 30 Days Reported Methadone Hcl 5 Mg Tablet 1.5 Tab PO Q8HRS Oxycodone Hcl 5 Mg Capsule 1-3 Tab PO PRN Q3HRS PRN Gabapentin 600 Mg Tablet 600 Mg PO BID Prevacid (Lansoprazole) 30 Mg Capsule.dr 30 Mg PO DAILY Cyclobenzaprine Hcl 10 Mg Tablet 10 Mg PO PRN TID PRN Phenergan (Promethazine HCl) 12.5 Mg Supp.rect 12.5 Mg RC PRN Q12HR PRN Ambien (Zolpidem Tartrate) 5 Mg Tablet 1 Tab PO QHS PRN Vitals/I & O Vital Sign - Last 24 Hours 01/25/19 01/25/19 01/25/19 01/25/19 09:47 10:20 15:13 15:59 Pulse Ox 94 94 94 94 O2 Flow Rate 3.0 3.0 3.0 3.0 01/25/19 01/25/19 01/25/19 01/25/19 19:22 19:50 20:00 23:45 Temp 97.7 97.7 Pulse 116 Resp 22 18 22 20 B/P (MAP) 109/56 (73) Pulse Ox 94 94 94 94 O2 Delivery Nasal Cannula Nasal Cannula Nasal Cannula Nasal Cannula O2 Flow Rate 3.0 3.0 3.0 3.0 01/26/19 01/26/19 01/26/19 01/26/19 00:20 03:17 03:53 06:54 Resp 20 18 18 18 Pulse Ox 94 94 94 94 O2 Delivery Nasal Cannula Nasal Cannula Nasal Cannula Nasal Cannula O2 Flow Rate 3.0 3.0 3.0 3.0 01/26/19 08:07 Pulse Ox 94 O2 Flow Rate 3.0 Intake and Output 01/25/19 01/25/19 01/26/19 15:00 23:00 07:00 Output Total 120 ml Balance -120 ml ALYSSA MARTELL MD Jan 26, 2019 08:41
[2019-01-26] MEDS: PANTOPRAZOLE IV PUSH 40 MG VIAL. IVP SCH (08:52)
[2019-01-26] MEDS: SCOPOLAMINE 1.5MG PATCH. TD SCH (08:59)
[2019-01-26 09:13] VITALS: BP 114/57
--- NOTE | 2019-01-26 09:45 | PDOC ---
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 dispo: cont inpt hospice care for now, getting more restless, suspect she is getting closer... thank you kindly, please call for ?s OBJECTIVE Vital Signs Vital Signs Date Time Temp Pulse Resp B/P (MAP) Pulse Ox O2 Delivery O2 Flow Rate FiO2 01/26/19 09:13 97.8 121 18 114/57 (76) 92 Room Air 97.8 01/26/19 08:07 94 3.0 01/26/19 06:54 18 94 Nasal Cannula 3.0 01/26/19 03:53 18 94 Nasal Cannula 3.0 01/26/19 03:17 18 94 Nasal Cannula 3.0 01/26/19 00:20 20 94 Nasal Cannula 3.0 01/25/19 23:45 20 94 Nasal Cannula 3.0 01/25/19 20:00 22 94 Nasal Cannula 3.0 01/25/19 19:50 97.7 116 18 109/56 (73) 94 Nasal Cannula 3.0 97.7 01/25/19 19:22 22 94 Nasal Cannula 3.0 01/25/19 15:59 94 3.0 01/25/19 15:13 94 3.0 01/25/19 10:20 94 3.0 01/25/19 09:47 94 3.0 I & O Intake and Output 01/26/19 07:00 Output Total 120 ml Balance -120 ml Output Emesis 120 ml # Voids 5 POWER MEHTA MD Jan 26, 2019 09:45
[2019-01-26] MEDS: IV NORMAL SALINE 1000ML BAG 1,000 ML IV SCH (17:37)
[2019-01-27 08:00] VITALS: BP 126/91
--- NOTE | 2019-01-27 09:05 | PDOC ---
PROGRESS NOTES Subjective Subjective Patient up to commode to void. Not talking much. Objective Objective Vital Signs Date Time Temp Pulse Resp B/P (MAP) Pulse Ox O2 Delivery O2 Flow Rate FiO2 01/27/19 06:17 22 95 Nasal Cannula 3.0 01/26/19 19:30 97.5 124 97.5 Intake and Output 01/27/19 07:00 Intake Total 10 ml Output Total 40 ml Balance -30 ml Intake Oral 10 ml Output Emesis 40 ml # Voids 1 Physical Exam Abdomen: Other (few BS present) Heart: Regular rate (tachy) Extremities: Other (mild diffuse chronic LE edema) General: No acute distress Lungs: Other (BS decreased at bases) Plan Plan of Care 1. Metastatic cervical cancer - slowly worsening, more tachycardia and agitation. Continue present care, family meeting tomorrow to discuss further plans. Continue small amounts of po fluids as tolerated. Comment Review of Relevant I have reviewed the following items heather (where applicable) has been applied. Medications Current Medications Lorazepam (Ativan) 1 mg PRN Q4HRS PRN PO ANXIETY / AGITATION; Start 01/20/19 at 16:30 Bisacodyl (Dulcolax Supp) 10 mg PRN DAILY PRN [place] CONSTIPATION; Start 01/20/19 at 16:30 Acetaminophen (Tylenol Supp) 650 mg PRN Q4HRS PRN [place] MILD PAIN / TEMP; Start 01/20/19 at 16:30 Fentanyl Citrate 30 ml @ 0 mls/hr CONT PRN PRN IV SEE COMMENTS; Start 01/20/19 at 16:30; Stop 01/20/19 at 17:09; Status DC Naloxone HCl (Narcan) 0.4 mg PRN Q2MIN PRN IV SEE INSTRUCTIONS; Start 01/20/19 at 16:30 Sodium Chloride 1,000 ml @ 25 mls/hr Q24H IV Last administered on 01/26/19at 17:37; Start 01/20/19 at 16:27 Scopolamine (Transderm-Scop) 1 patch Q3DAYS TD Last administered on 01/26/19at 08:59; Start 01/20/19 at 18:00 Lorazepam (Ativan Inj) 2 mg PRN Q1HR PRN IVP ANXIETY / AGITATION SEVERE Last administered on 01/26/19at 09:03; Start 01/20/19 at 16:30 Lorazepam (Ativan Inj) 1 mg PRN Q1HR PRN IVP ANXIETY / AGITATION MILD-MOD Last administered on 01/27/19at 06:41; Start 01/20/19 at 16:30 Phenol (Chloraseptic) 1 spray PRN Q2HR PRN PO SORE THROAT; Start 01/20/19 at 16:30 Belladonna Alkaloids/Opium (B & O) 1 supp BID [place] ; Start 01/20/19 at 21:00; Stop 01/21/19 at 09:22; Status DC Promethazine HCl (Phenergan) 12.5 mg PRN BID PRN PO NAUSEA/VOMITING; Start 01/20/19 at 16:30 Pantoprazole Sodium (PROTONIX VIAL for IV PUSH) 40 mg DAILYAC IVP Last administered on 01/26/19at 08:52; Start 01/21/19 at 07:30 Fentanyl Citrate 30 ml @ 0 mls/hr CONT PRN PRN IV SEE COMMENTS Last administered on 01/27/19at 06:17; Start 01/20/19 at 17:15 Belladonna Alkaloids/Opium (B & O) 1 supp PRN BID PRN [place] bladder spasm; Start 01/21/19 at 09:30 Diphenhydramine HCl (Benadryl) 50 mg PRN Q8HRS PRN PO INSOMNIA; Start 01/21/19 at 17:30 Lorazepam (Ativan Inj) 2 mg DAILY@2200 IVP Last administered on 01/26/19at 20:06; Start 01/21/19 at 22:00 Sodium Chloride ([place] Saline Nasal) 1 kindra PRN Q1HR PRN NS NASAL CONGESTION; Start 01/21/19 at 18:15 Fentanyl Citrate (Fentanyl 600 Mcg/30 ml C D STILL OPERATOR) 600 mcg STK-MED ONCE IV ; Start 01/21/19 at 15:00; Stop 01/21/19 at 18:19; Status DC Fentanyl Citrate (Fentanyl 600 Mcg/30 ml C D STILL OPERATOR) 600 mcg STK-MED ONCE IV ; Start 01/22/19 at 12:31; Stop 01/25/19 at 11:39; Status DC Fentanyl Citrate (Fentanyl 600 Mcg/30 ml C D STILL OPERATOR) 600 mcg STK-MED ONCE IV ; Start 01/22/19 at 17:03; Stop 01/25/19 at 11:40; Status DC Fentanyl Citrate (Fentanyl 600 Mcg/30 ml C D STILL OPERATOR) 600 mcg STK-MED ONCE IV ; Start 01/22/19 at 21:58; Stop 01/25/19 at 11:50; Status DC Fentanyl Citrate (Fentanyl 600 Mcg/30 ml C D STILL OPERATOR) 600 mcg STK-MED ONCE IV ; Start 01/23/19 at 03:09; Stop 01/25/19 at 11:51; Status DC Fentanyl Citrate (Fentanyl 600 Mcg/30 ml C D STILL OPERATOR) 600 mcg STK-MED ONCE IV ; Start 01/23/19 at 09:18; Stop 01/25/19 at 11:52; Status DC Fentanyl Citrate (Fentanyl 600 Mcg/30 ml C D STILL OPERATOR) 600 mcg STK-MED ONCE IV ; Start 01/23/19 at 14:14; Stop 01/25/19 at 11:53; Status DC Fentanyl Citrate (Fentanyl 600 Mcg/30 ml C D STILL OPERATOR) 600 mcg STK-MED ONCE IV ; Start 01/23/19 at 19:30; Stop 01/25/19 at 11:54; Status DC Fentanyl Citrate (Fentanyl 600 Mcg/30 ml C D STILL OPERATOR) 600 mcg STK-MED ONCE IV ; Start 01/24/19 at 00:14; Stop 01/25/19 at 11:54; Status DC Fentanyl Citrate (Fentanyl 600 Mcg/30 ml C D STILL OPERATOR) 600 mcg STK-MED ONCE IV ; Start 01/24/19 at 04:31; Stop 01/25/19 at 11:55; Status DC Active Scripts Active Belladonna-Opium 16.2-30 Supp (Opium/Belladonna Alkaloids) 1 Each Supp.rect 1 Supp [place] Q12HR 30 Days Polyethylene Glycol 3350 17 Gm Powd.pack 17 Gm PO PRN DAILY PRN 30 Days Colace (Docusate Sodium) 100 Mg Capsule 100 Mg PO DAILY MDD 30 30 Days Reported Methadone Hcl 5 Mg Tablet 1.5 Tab PO Q8HRS Oxycodone Hcl 5 Mg Capsule 1-3 Tab PO PRN Q3HRS PRN Gabapentin 600 Mg Tablet 600 Mg PO BID Prevacid (Lansoprazole) 30 Mg Capsule.dr 30 Mg PO DAILY Cyclobenzaprine Hcl 10 Mg Tablet 10 Mg PO PRN TID PRN Phenergan (Promethazine HCl) 12.5 Mg Supp.rect 12.5 Mg RC PRN Q12HR PRN Ambien (Zolpidem Tartrate) 5 Mg Tablet 1 Tab PO QHS PRN Vitals/I & O Vital Sign - Last 24 Hours 01/26/19 01/26/19 01/26/19 01/26/19 09:13 12:00 13:07 17:36 Temp 97.8 97.8 Pulse 121 Resp 18 B/P (MAP) 114/57 (76) Pulse Ox 92 92 92 92 O2 Delivery Room Air O2 Flow Rate 3.0 3.0 3.0 01/26/19 01/26/19 01/26/19 01/26/19 18:50 19:22 19:30 21:39 Temp 97.5 97.5 Pulse 124 Resp 18 18 18 B/P (MAP) Pulse Ox 95 95 95 O2 Delivery Nasal Cannula Room Air Nasal Cannula Nasal Cannula O2 Flow Rate 3.0 3.0 01/26/19 01/27/19 01/27/19 01/27/19 22:29 02:25 03:00 06:17 Resp 18 22 20 22 Pulse Ox 95 95 95 95 O2 Delivery Nasal Cannula Nasal Cannula Nasal Cannula Nasal Cannula O2 Flow Rate 3.0 3.0 3.0 3.0 Intake and Output 01/26/19 01/26/19 01/27/19 15:00 23:00 07:00 Intake Total 10 ml Output Total 40 ml Balance -30 ml ALYSSA MARTELL MD Jan 27, 2019 09:05
[2019-01-27] MEDS: PANTOPRAZOLE IV PUSH 40 MG VIAL. IVP SCH (09:21)
[2019-01-27] MEDS: IV NORMAL SALINE 1000ML BAG 1,000 ML IV SCH (09:22)
[2019-01-27 19:00] VITALS: BP 104/58
[2019-01-28 07:00] VITALS: BP 117/78
--- NOTE | 2019-01-28 08:51 | PDOC ---
PROGRESS NOTES Subjective Subjective Patient resting, does not speak or open eyes during family conference. Objective Objective Vital Signs Date Time Temp Pulse Resp B/P (MAP) Pulse Ox O2 Delivery O2 Flow Rate FiO2 01/28/19 04:57 12 92 Nasal Cannula 2.0 01/27/19 19:00 97.9 111 104/58 (73) 97.9 Intake and Output 01/28/19 07:00 Intake Total 20 ml Balance 20 ml Blood Product IV Normal Saline Flush 20 ml Physical Exam General: No acute distress Plan Plan of Care 1. Metastatic cervical cancer - good family conference today with Vitas and multiple family members present. Questions answered and goals of care clarified. Family reports that patient seems in pain sometimes but appears too weak to push the SENIOR FIRMWARE ENGINEER button. Will concentrate the Fentanyl so that basal rate can be increased as needed to provide adequate pain control. Continue small amounts of po fluids as desired. I will not be rounding over the weekend but will be available by phone if needed. Comment Review of Relevant I have reviewed the following items heather (where applicable) has been applied. Medications Current Medications Lorazepam (Ativan) 1 mg PRN Q4HRS PRN PO ANXIETY / AGITATION; Start 01/20/19 at 16:30; Stop 01/27/19 at 09:02; Status DC Bisacodyl (Dulcolax Supp) 10 mg PRN DAILY PRN [place] CONSTIPATION; Start 01/20/19 at 16:30 Acetaminophen (Tylenol Supp) 650 mg PRN Q4HRS PRN [place] MILD PAIN / TEMP; Start 01/20/19 at 16:30 Fentanyl Citrate 30 ml @ 0 mls/hr CONT PRN PRN IV SEE COMMENTS; Start 01/20/19 at 16:30; Stop 01/20/19 at 17:09; Status DC Naloxone HCl (Narcan) 0.4 mg PRN Q2MIN PRN IV SEE INSTRUCTIONS; Start 01/20/19 at 16:30 Sodium Chloride 1,000 ml @ 25 mls/hr Q24H IV Last administered on 01/27/19at 09:22; Start 01/20/19 at 16:27 Scopolamine (Transderm-Scop) 1 patch Q3DAYS TD Last administered on 01/26/19at 08:59; Start 01/20/19 at 18:00 Lorazepam (Ativan Inj) 2 mg PRN Q1HR PRN IVP ANXIETY / AGITATION SEVERE Last administered on 01/28/19at 04:27; Start 01/20/19 at 16:30 Lorazepam (Ativan Inj) 1 mg PRN Q1HR PRN IVP ANXIETY / AGITATION MILD-MOD Last administered on 01/27/19at 06:41; Start 01/20/19 at 16:30; Stop 01/27/19 at 09:02; Status DC Phenol (Chloraseptic) 1 spray PRN Q2HR PRN PO SORE THROAT; Start 01/20/19 at 16:30 Belladonna Alkaloids/Opium (B & O) 1 supp BID [place] ; Start 01/20/19 at 21:00; Stop 01/21/19 at 09:22; Status DC Promethazine HCl (Phenergan) 12.5 mg PRN BID PRN PO NAUSEA/VOMITING; Start 01/20/19 at 16:30 Pantoprazole Sodium (PROTONIX VIAL for IV PUSH) 40 mg DAILYAC IVP Last administered on 01/27/19at 09:21; Start 01/21/19 at 07:30 Fentanyl Citrate 30 ml @ 0 mls/hr CONT PRN PRN IV SEE COMMENTS Last administered on 01/28/19at 04:26; Start 01/20/19 at 17:15; Stop 01/28/19 at 10:00 Belladonna Alkaloids/Opium (B & O) 1 supp PRN BID PRN [place] bladder spasm; Start 01/21/19 at 09:30 Diphenhydramine HCl (Benadryl) 50 mg PRN Q8HRS PRN PO INSOMNIA; Start 01/21/19 at 17:30 Lorazepam (Ativan Inj) 2 mg DAILY@2200 IVP Last administered on 01/28/19at 06:37; Start 01/21/19 at 22:00 Sodium Chloride ([place] Saline Nasal) 1 kindra PRN Q1HR PRN NS NASAL CONGESTION; Start 01/21/19 at 18:15 Fentanyl Citrate (Fentanyl 600 Mcg/30 ml SENIOR FIRMWARE ENGINEER) 600 mcg STK-MED ONCE IV ; Start 01/21/19 at 15:00; Stop 01/21/19 at 18:19; Status DC Fentanyl Citrate (Fentanyl 600 Mcg/30 ml SENIOR FIRMWARE ENGINEER) 600 mcg STK-MED ONCE IV ; Start 01/22/19 at 12:31; Stop 01/25/19 at 11:39; Status DC Fentanyl Citrate (Fentanyl 600 Mcg/30 ml SENIOR FIRMWARE ENGINEER) 600 mcg STK-MED ONCE IV ; Start 01/22/19 at 17:03; Stop 01/25/19 at 11:40; Status DC Fentanyl Citrate (Fentanyl 600 Mcg/30 ml SENIOR FIRMWARE ENGINEER) 600 mcg STK-MED ONCE IV ; Start 01/22/19 at 21:58; Stop 01/25/19 at 11:50; Status DC Fentanyl Citrate (Fentanyl 600 Mcg/30 ml SENIOR FIRMWARE ENGINEER) 600 mcg STK-MED ONCE IV ; Start 01/23/19 at 03:09; Stop 01/25/19 at 11:51; Status DC Fentanyl Citrate (Fentanyl 600 Mcg/30 ml SENIOR FIRMWARE ENGINEER) 600 mcg STK-MED ONCE IV ; Start 01/23/19 at 09:18; Stop 01/25/19 at 11:52; Status DC Fentanyl Citrate (Fentanyl 600 Mcg/30 ml SENIOR FIRMWARE ENGINEER) 600 mcg STK-MED ONCE IV ; Start 01/23/19 at 14:14; Stop 01/25/19 at 11:53; Status DC Fentanyl Citrate (Fentanyl 600 Mcg/30 ml SENIOR FIRMWARE ENGINEER) 600 mcg STK-MED ONCE IV ; Start 01/23/19 at 19:30; Stop 01/25/19 at 11:54; Status DC Fentanyl Citrate (Fentanyl 600 Mcg/30 ml SENIOR FIRMWARE ENGINEER) 600 mcg STK-MED ONCE IV ; Start 01/24/19 at 00:14; Stop 01/25/19 at 11:54; Status DC Fentanyl Citrate (Fentanyl 600 Mcg/30 ml SENIOR FIRMWARE ENGINEER) 600 mcg STK-MED ONCE IV ; Start 01/24/19 at 04:31; Stop 01/25/19 at 11:55; Status DC Fentanyl Citrate 55 ml @ 0 mls/hr CONT PRN PRN IV PER PROTOCOL; Start 01/28/19 at 08:30 Active Scripts Active Belladonna-Opium 16.2-30 Supp (Opium/Belladonna Alkaloids) 1 Each Supp.rect 1 Supp [place] Q12HR 30 Days Polyethylene Glycol 3350 17 Gm Powd.pack 17 Gm PO PRN DAILY PRN 30 Days Colace (Docusate Sodium) 100 Mg Capsule 100 Mg PO DAILY MDD 30 30 Days Reported Methadone Hcl 5 Mg Tablet 1.5 Tab PO Q8HRS Oxycodone Hcl 5 Mg Capsule 1-3 Tab PO PRN Q3HRS PRN Gabapentin 600 Mg Tablet 600 Mg PO BID Prevacid (Lansoprazole) 30 Mg Capsule.dr 30 Mg PO DAILY Cyclobenzaprine Hcl 10 Mg Tablet 10 Mg PO PRN TID PRN Phenergan (Promethazine HCl) 12.5 Mg Supp.rect 12.5 Mg RC PRN Q12HR PRN Ambien (Zolpidem Tartrate) 5 Mg Tablet 1 Tab PO QHS PRN Vitals/I & O Vital Sign - Last 24 Hours 01/27/19 01/27/19 01/27/19 01/27/19 10:40 11:10 14:50 15:20 Resp 20 Pulse Ox 95 95 92 92 O2 Delivery Nasal Cannula O2 Flow Rate 3.0 3.0 2.0 2.0 01/27/19 01/27/19 01/27/19 01/27/19 19:00 19:05 19:40 23:25 Temp 97.9 97.9 Pulse 111 Resp 18 22 20 20 B/P (MAP) 104/58 (73) Pulse Ox 94 92 92 92 O2 Delivery Nasal Cannula Nasal Cannula Nasal Cannula Nasal Cannula O2 Flow Rate 2.0 2.0 2.0 2.0 01/28/19 01/28/19 01/28/19 00:01 04:26 04:57 Resp 24 11 12 Pulse Ox 92 92 92 O2 Delivery Nasal Cannula Nasal Cannula Nasal Cannula O2 Flow Rate 2.0 2.0 2.0 Intake and Output 01/27/19 01/27/19 01/28/19 15:00 23:00 07:00 Intake Total 20 ml Balance 20 ml ALYSSA MARTELL MD Jan 28, 2019 08:51
[2019-01-28] MEDS: PANTOPRAZOLE IV PUSH 40 MG VIAL. IVP SCH (08:52)
[2019-01-28] MEDS: HALOPERIDOL LACTATE 5 MG/ML VIAL. IVP PRN ×2 (08:52→19:51)
[2019-01-28] MEDS: fentaNYL HIGH DOSE PCA 55 ML IV PRN (09:20)
--- NOTE | 2019-01-28 10:08 | PDOC ---
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 dispo: cont inpt hospice care for now thank you kindly, please call for ?s OBJECTIVE Vital Signs Vital Signs Date Time Temp Pulse Resp B/P (MAP) Pulse Ox O2 Delivery O2 Flow Rate FiO2 01/28/19 09:32 92 2.0 01/28/19 09:20 92 2.0 01/28/19 08:44 92 2.0 01/28/19 07:00 98.1 110 18 117/78 (91) 96 Nasal Cannula 2.0 98.1 01/28/19 04:57 12 92 Nasal Cannula 2.0 01/28/19 04:26 11 92 Nasal Cannula 2.0 01/28/19 00:01 24 92 Nasal Cannula 2.0 01/27/19 23:25 20 92 Nasal Cannula 2.0 01/27/19 19:40 20 92 Nasal Cannula 2.0 01/27/19 19:05 22 92 Nasal Cannula 2.0 01/27/19 19:00 97.9 111 18 104/58 (73) 94 Nasal Cannula 2.0 97.9 01/27/19 15:20 92 2.0 01/27/19 14:50 20 92 Nasal Cannula 2.0 01/27/19 11:10 95 3.0 01/27/19 10:40 95 3.0 I & O Intake and Output 01/28/19 07:00 Intake Total 20 ml Balance 20 ml Blood Product IV Normal Saline Flush 20 ml POWER MEHTA MD Jan 28, 2019 10:08
[2019-01-28] MEDS: IV NORMAL SALINE 1000ML BAG 1,000 ML IV SCH (18:23)
[2019-01-28 19:30] VITALS: BP 114/82
[2019-01-29] MEDS: fentaNYL HIGH DOSE PCA 55 ML IV PRN ×2 (02:50→19:14)
[2019-01-29] MEDS: HALOPERIDOL LACTATE 5 MG/ML VIAL. IVP PRN ×2 (04:44→19:59)
[2019-01-29 07:00] VITALS: BP 103/57
--- NOTE | 2019-01-29 07:06 | NUR ---
Overnight, pt slept/rested well with intermittent brief periods of restlessness. PRN medications were administered for restlessness and comfort with family involvement/approval. Pt had eyes closed, was slightly drowsy/fatigued for majority of night. She did answer her family's questions appropriately with yes or no answers the majority of the time while I was present. Hospice nurse visited patient at beginning of shift.
[2019-01-29] MEDS: PANTOPRAZOLE IV PUSH 40 MG VIAL. IVP SCH (08:04)
[2019-01-29] MEDS: SCOPOLAMINE 1.5MG PATCH. TD SCH (08:05)
--- NOTE | 2019-01-29 13:51 | NUR ---
Pt resting in recliner, family and friends at bedside. 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 VSS at this time, Rebecca infrastructure consultant in to visit pt. No new needs or concerns at this time.
[2019-01-29] MEDS: IV NORMAL SALINE 1000ML BAG 1,000 ML IV SCH (17:16)
[2019-01-29] MEDS ORDERED: fentaNYL HIGH DOSE PCA 2,750 MCG/55 ML PCA.SYRING IV ONE (19:14)
[2019-01-29 19:50] VITALS: BP 110/50
[2019-01-30] MEDS: HALOPERIDOL LACTATE 5 MG/ML VIAL. IVP PRN ×2 (02:22→08:01)
[2019-01-30 07:00] VITALS: BP 120/64
[2019-01-30] MEDS: PANTOPRAZOLE IV PUSH 40 MG VIAL. IVP SCH (08:01)
[2019-01-30] MEDS: fentaNYL HIGH DOSE PCA 55 ML IV PRN (08:04)
--- NOTE | 2019-01-30 08:30 | NUR ---
Pt with increased restlessness noted this shift. Both Haldol and Ativan IV given with some improvement. [facility] notified of increased needs for medication. 1100: Dr. Bowman notified of increased restlessness and agitation, see additional IV medication orders.
[2019-01-30] MEDS: IV NORMAL SALINE 1000ML BAG 1,000 ML IV SCH (16:38)
[2019-01-30 19:00] VITALS: BP 110/68
[2019-01-31] MEDS: HALOPERIDOL LACTATE 5 MG/ML VIAL. IVP PRN ×3 (01:41→20:35)
[2019-01-31] MEDS: fentaNYL HIGH DOSE PCA 55 ML IV PRN ×2 (02:34→19:19)
--- NOTE | 2019-01-31 07:44 | PDOC ---
PROGRESS NOTES Subjective Subjective Patient sleeping quietly in recliner, does not waken for exam. Objective Objective Vital Signs Date Time Temp Pulse Resp B/P (MAP) Pulse Ox O2 Delivery O2 Flow Rate FiO2 01/31/19 03:05 16 96 Room Air 3.0 01/30/19 19:00 96.1 120 110/68 (82) 96.1 Intake and Output 01/31/19 07:00 Intake Total 0 ml Balance 0 ml Intake Oral 0 ml Physical Exam Abdomen: Soft, No tenderness, Other (BS present) Heart: Regular rate Extremities: Other (mild chronic edema bilateral LE's) General: No acute distress Lungs: Other (CTA anteriorly) Assessment Assessment Problems Medical Problems: (1) Metastasis from cervical cancer Status: Chronic Plan Plan of Care 1. Metastatic cervical cancer - appears more comfortable with increase in basal rate of INPATIENT SERVICES DIRECTOR. Higher doses of Ativan and Haldol available for agitation, has not needed a lot of these in past 24 hours. Family reports she is taking very little po now, reassured that this is part of the normal process, can continue to offer fluids prn. Continue comfort care with hospice. Comment Review of Relevant I have reviewed the following items heather (where applicable) has been applied. Medications Current Medications Lorazepam (Ativan) 1 mg PRN Q4HRS PRN PO ANXIETY / AGITATION; Start 01/20/19 at 16:30; Stop 01/27/19 at 09:02; Status DC Bisacodyl (Dulcolax Supp) 10 mg PRN DAILY PRN [place] CONSTIPATION; Start 01/20/19 at 16:30 Acetaminophen (Tylenol Supp) 650 mg PRN Q4HRS PRN [place] MILD PAIN / TEMP; Start 01/20/19 at 16:30 Fentanyl Citrate 30 ml @ 0 mls/hr CONT PRN PRN IV SEE COMMENTS; Start 01/20/19 at 16:30; Stop 01/20/19 at 17:09; Status DC Naloxone HCl (Narcan) 0.4 mg PRN Q2MIN PRN IV SEE INSTRUCTIONS; Start 01/20/19 at 16:30 Sodium Chloride 1,000 ml @ 25 mls/hr Q24H IV Last administered on 01/30/19at 16:38; Start 01/20/19 at 16:27 Scopolamine (Transderm-Scop) 1 patch Q3DAYS TD Last administered on 01/29/19at 08:05; Start 01/20/19 at 18:00 Lorazepam (Ativan Inj) 2 mg PRN Q1HR PRN IVP ANXIETY / AGITATION SEVERE Last administered on 01/30/19at 10:45; Start 01/20/19 at 16:30; Stop 01/30/19 at 11:52; Status DC Lorazepam (Ativan Inj) 1 mg PRN Q1HR PRN IVP ANXIETY / AGITATION MILD-MOD Last administered on 01/27/19at 06:41; Start 01/20/19 at 16:30; Stop 01/27/19 at 09:02; Status DC Phenol (Chloraseptic) 1 spray PRN Q2HR PRN PO SORE THROAT; Start 01/20/19 at 16:30 Belladonna Alkaloids/Opium (B & O) 1 supp BID [place] ; Start 01/20/19 at 21:00; Stop 01/21/19 at 09:22; Status DC Promethazine HCl (Phenergan) 12.5 mg PRN BID PRN PO NAUSEA/VOMITING; Start 01/20/19 at 16:30 Pantoprazole Sodium (PROTONIX VIAL for IV PUSH) 40 mg DAILYAC IVP Last administered on 01/30/19at 08:01; Start 01/21/19 at 07:30 Fentanyl Citrate 30 ml @ 0 mls/hr CONT PRN PRN IV SEE COMMENTS Last administered on 01/28/19at 08:44; Start 01/20/19 at 17:15; Stop 01/28/19 at 10:00; Status DC Belladonna Alkaloids/Opium (B & O) 1 supp PRN BID PRN [place] bladder spasm; Start 01/21/19 at 09:30 Diphenhydramine HCl (Benadryl) 50 mg PRN Q8HRS PRN PO INSOMNIA; Start 01/21/19 at 17:30 Lorazepam (Ativan Inj) 2 mg DAILY@2200 IVP Last administered on 01/30/19at 22:15; Start 01/21/19 at 22:00 Sodium Chloride ([place] Saline Nasal) 1 kindra PRN Q1HR PRN NS NASAL CONGESTION; Start 01/21/19 at 18:15 Fentanyl Citrate (Fentanyl 600 Mcg/30 ml INPATIENT SERVICES DIRECTOR) 600 mcg STK-MED ONCE IV ; Start 01/21/19 at 15:00; Stop 01/21/19 at 18:19; Status DC Fentanyl Citrate (Fentanyl 600 Mcg/30 ml INPATIENT SERVICES DIRECTOR) 600 mcg STK-MED ONCE IV ; Start 01/22/19 at 12:31; Stop 01/25/19 at 11:39; Status DC Fentanyl Citrate (Fentanyl 600 Mcg/30 ml INPATIENT SERVICES DIRECTOR) 600 mcg STK-MED ONCE IV ; Start 01/22/19 at 17:03; Stop 01/25/19 at 11:40; Status DC Fentanyl Citrate (Fentanyl 600 Mcg/30 ml INPATIENT SERVICES DIRECTOR) 600 mcg STK-MED ONCE IV ; Start 01/22/19 at 21:58; Stop 01/25/19 at 11:50; Status DC Fentanyl Citrate (Fentanyl 600 Mcg/30 ml INPATIENT SERVICES DIRECTOR) 600 mcg STK-MED ONCE IV ; Start 01/23/19 at 03:09; Stop 01/25/19 at 11:51; Status DC Fentanyl Citrate (Fentanyl 600 Mcg/30 ml INPATIENT SERVICES DIRECTOR) 600 mcg STK-MED ONCE IV ; Start 01/23/19 at 09:18; Stop 01/25/19 at 11:52; Status DC Fentanyl Citrate (Fentanyl 600 Mcg/30 ml INPATIENT SERVICES DIRECTOR) 600 mcg STK-MED ONCE IV ; Start 01/23/19 at 14:14; Stop 01/25/19 at 11:53; Status DC Fentanyl Citrate (Fentanyl 600 Mcg/30 ml INPATIENT SERVICES DIRECTOR) 600 mcg STK-MED ONCE IV ; Start 01/23/19 at 19:30; Stop 01/25/19 at 11:54; Status DC Fentanyl Citrate (Fentanyl 600 Mcg/30 ml INPATIENT SERVICES DIRECTOR) 600 mcg STK-MED ONCE IV ; Start 01/24/19 at 00:14; Stop 01/25/19 at 11:54; Status DC Fentanyl Citrate (Fentanyl 600 Mcg/30 ml INPATIENT SERVICES DIRECTOR) 600 mcg STK-MED ONCE IV ; Start 01/24/19 at 04:31; Stop 01/25/19 at 11:55; Status DC Fentanyl Citrate 55 ml @ 0 mls/hr CONT PRN PRN IV PER PROTOCOL Last administered on 01/31/19at 02:34; Start 01/28/19 at 08:30 Haloperidol Lactate (Haldol Inj) 2.5 mg PRN Q6HRS PRN IVP AGITATION Last administered on 01/30/19at 08:01; Start 01/28/19 at 08:45; Stop 01/30/19 at 11:52; Status DC Lorazepam (Ativan Inj) 2 mg PRN Q30MIN PRN IVP ANXIETY / AGITATION Last administered on 01/30/19at 17:14; Start 01/30/19 at 12:00 Lorazepam (Ativan Inj) 4 mg PRN Q30MIN PRN IVP ANXIETY / AGITATION; Start 01/30/19 at 12:00 Haloperidol Lactate (Haldol Inj) 5 mg PRN Q4HRS PRN IVP AGITATION; Start 01/30/19 at 12:00 Haloperidol Lactate (Haldol Inj) 2.5 mg PRN Q4HRS PRN IVP AGITATION Last administered on 01/31/19at 01:41; Start 01/30/19 at 12:00 Active Scripts Active Belladonna-Opium 16.2-30 Supp (Opium/Belladonna Alkaloids) 1 Each Supp.rect 1 Supp [place] Q12HR 30 Days Polyethylene Glycol 3350 17 Gm Powd.pack 17 Gm PO PRN DAILY PRN 30 Days Colace (Docusate Sodium) 100 Mg Capsule 100 Mg PO DAILY MDD 30 30 Days Reported Methadone Hcl 5 Mg Tablet 1.5 Tab PO Q8HRS Oxycodone Hcl 5 Mg Capsule 1-3 Tab PO PRN Q3HRS PRN Gabapentin 600 Mg Tablet 600 Mg PO BID Prevacid (Lansoprazole) 30 Mg Capsule.dr 30 Mg PO DAILY Cyclobenzaprine Hcl 10 Mg Tablet 10 Mg PO PRN TID PRN Phenergan (Promethazine HCl) 12.5 Mg Supp.rect 12.5 Mg RC PRN Q12HR PRN Ambien (Zolpidem Tartrate) 5 Mg Tablet 1 Tab PO QHS PRN Vitals/I & O Vital Sign - Last 24 Hours 01/30/19 01/30/19 01/30/19 01/31/19 08:04 08:34 19:00 02:34 Temp 96.1 96.1 Pulse 120 Resp 16 12 B/P (MAP) 110/68 (82) Pulse Ox 94 94 96 96 O2 Delivery Nasal Cannula Nasal Cannula O2 Flow Rate 3.0 3.0 3.0 3.0 01/31/19 03:05 Resp 16 Pulse Ox 96 O2 Delivery Room Air O2 Flow Rate 3.0 Intake and Output 01/30/19 01/30/19 01/31/19 15:00 23:00 07:00 Intake Total 0 ml Balance 0 ml Nutrition Consultation Dietary Evaluation: Comments: Offer liquids/foods only as requested by pt, discussed w/RN; will not place diet order per RN Expected Outcomes/Goals: nutrition as appropriate per goals of hospice/comfort care RD available [phone] as needed Malnutrition Findings: Food and Nutrition Intake (Sev: <50% est energy req 5days Weight Status: Obese ALYSSA MARTELL MD Jan 31, 2019 07:44
[2019-01-31] MEDS: PANTOPRAZOLE IV PUSH 40 MG VIAL. IVP SCH (08:32)
--- NOTE | 2019-01-31 08:56 | PDOC ---
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 dispo: cont inpt hospice care thank you kindly, please call for ?s OBJECTIVE Vital Signs Vital Signs Date Time Temp Pulse Resp B/P (MAP) Pulse Ox O2 Delivery O2 Flow Rate FiO2 01/31/19 07:00 01/31/19 03:05 16 96 Room Air 3.0 01/31/19 02:34 12 96 Nasal Cannula 3.0 01/30/19 19:00 96.1 120 16 110/68 (82) 96 Nasal Cannula 3.0 96.1 I & O Intake and Output 01/31/19 07:00 Intake Total 0 ml Balance 0 ml Intake Oral 0 ml Nutrition Consultation Dietary Evaluation: Comments: Offer liquids/foods only as requested by pt, discussed w/RN; will not place diet order per RN Expected Outcomes/Goals: nutrition as appropriate per goals of hospice/comfort care RD available [phone] as needed Malnutrition Findings: Food and Nutrition Intake (Sev: <50% est energy req 5days Weight Status: Obese POWER MEHTA MD Jan 31, 2019 08:56
[2019-01-31 09:02] VITALS: BP 116/69
[2019-01-31] MEDS: IV NORMAL SALINE 1000ML BAG 1,000 ML IV SCH (17:14)
[2019-01-31 19:20] VITALS: BP 98/68
[2019-02-01] MEDS: HALOPERIDOL LACTATE 5 MG/ML VIAL. IVP PRN ×2 (03:08→20:11)
[2019-02-01 07:00] VITALS: BP 111/71
[2019-02-01] MEDS: PANTOPRAZOLE IV PUSH 40 MG VIAL. IVP SCH (07:03)
[2019-02-01] MEDS: SCOPOLAMINE 1.5MG PATCH. TD SCH (07:04)
--- NOTE | 2019-02-01 07:40 | PDOC ---
PROGRESS NOTES Subjective Subjective Patient intermittently awake, not answering questions at present. Objective Objective Vital Signs Date Time Temp Pulse Resp B/P (MAP) Pulse Ox O2 Delivery O2 Flow Rate FiO2 01/31/19 20:00 12 97 Nasal Cannula 3.0 01/31/19 19:20 97.8 124 98/68 (78) 97.8 Intake and Output 02/01/19 07:00 Intake Total 0 ml Output Total 100 ml Balance -100 ml Intake Oral 0 ml Output Urine Total 100 ml # Voids 3 Physical Exam Abdomen: Soft, Other (few BS present) Heart: Regular rate (tachy) Extremities: Other (2+ pitting edema bilateral LE's) General: No acute distress Lungs: Other (CTA anteriorly) Assessment Assessment Problems Medical Problems: (1) Metastasis from cervical cancer Status: Chronic Plan Plan of Care 1. Metastatic cervical cancer - slowly progressing. Appears fairly comfortable with present medications and family seems to agree, continue comfort care with meds for anxiety and pain. Taking very little po now. Comment Review of Relevant I have reviewed the following items heather (where applicable) has been applied. Medications Current Medications Lorazepam (Ativan) 1 mg PRN Q4HRS PRN PO ANXIETY / AGITATION; Start 01/20/19 at 16:30; Stop 01/27/19 at 09:02; Status DC Bisacodyl (Dulcolax Supp) 10 mg PRN DAILY PRN [place] CONSTIPATION; Start 01/20/19 at 16:30 Acetaminophen (Tylenol Supp) 650 mg PRN Q4HRS PRN [place] MILD PAIN / TEMP; Start 01/20/19 at 16:30 Fentanyl Citrate 30 ml @ 0 mls/hr CONT PRN PRN IV SEE COMMENTS; Start 01/20/19 at 16:30; Stop 01/20/19 at 17:09; Status DC Naloxone HCl (Narcan) 0.4 mg PRN Q2MIN PRN IV SEE INSTRUCTIONS; Start 01/20/19 at 16:30 Sodium Chloride 1,000 ml @ 25 mls/hr Q24H IV Last administered on 01/31/19at 17:14; Start 01/20/19 at 16:27 Scopolamine (Transderm-Scop) 1 patch Q3DAYS TD Last administered on 02/01/19at 07:04; Start 01/20/19 at 18:00 Lorazepam (Ativan Inj) 2 mg PRN Q1HR PRN IVP ANXIETY / AGITATION SEVERE Last administered on 01/30/19at 10:45; Start 01/20/19 at 16:30; Stop 01/30/19 at 11:52; Status DC Lorazepam (Ativan Inj) 1 mg PRN Q1HR PRN IVP ANXIETY / AGITATION MILD-MOD Last administered on 01/27/19at 06:41; Start 01/20/19 at 16:30; Stop 01/27/19 at 09:02; Status DC Phenol (Chloraseptic) 1 spray PRN Q2HR PRN PO SORE THROAT; Start 01/20/19 at 16:30 Belladonna Alkaloids/Opium (B & O) 1 supp BID [place] ; Start 01/20/19 at 21:00; Stop 01/21/19 at 09:22; Status DC Promethazine HCl (Phenergan) 12.5 mg PRN BID PRN PO NAUSEA/VOMITING; Start 01/20/19 at 16:30 Pantoprazole Sodium (PROTONIX VIAL for IV PUSH) 40 mg DAILYAC IVP Last administered on 02/01/19at 07:03; Start 01/21/19 at 07:30 Fentanyl Citrate 30 ml @ 0 mls/hr CONT PRN PRN IV SEE COMMENTS Last administered on 01/28/19at 08:44; Start 01/20/19 at 17:15; Stop 01/28/19 at 10:00; Status DC Belladonna Alkaloids/Opium (B & O) 1 supp PRN BID PRN [place] bladder spasm; Start 01/21/19 at 09:30 Diphenhydramine HCl (Benadryl) 50 mg PRN Q8HRS PRN PO INSOMNIA; Start 01/21/19 at 17:30 Lorazepam (Ativan Inj) 2 mg DAILY@2200 IVP Last administered on 02/01/19at 07:03; Start 01/21/19 at 22:00 Sodium Chloride ([place] Saline Nasal) 1 kindra PRN Q1HR PRN NS NASAL CONGESTION; Start 01/21/19 at 18:15 Fentanyl Citrate (Fentanyl 600 Mcg/30 ml SAFETY PROFESSIONAL) 600 mcg STK-MED ONCE IV ; Start 01/21/19 at 15:00; Stop 01/21/19 at 18:19; Status DC Fentanyl Citrate (Fentanyl 600 Mcg/30 ml SAFETY PROFESSIONAL) 600 mcg STK-MED ONCE IV ; Start 01/22/19 at 12:31; Stop 01/25/19 at 11:39; Status DC Fentanyl Citrate (Fentanyl 600 Mcg/30 ml SAFETY PROFESSIONAL) 600 mcg STK-MED ONCE IV ; Start 01/22/19 at 17:03; Stop 01/25/19 at 11:40; Status DC Fentanyl Citrate (Fentanyl 600 Mcg/30 ml SAFETY PROFESSIONAL) 600 mcg STK-MED ONCE IV ; Start 01/22/19 at 21:58; Stop 01/25/19 at 11:50; Status DC Fentanyl Citrate (Fentanyl 600 Mcg/30 ml SAFETY PROFESSIONAL) 600 mcg STK-MED ONCE IV ; Start 01/23/19 at 03:09; Stop 01/25/19 at 11:51; Status DC Fentanyl Citrate (Fentanyl 600 Mcg/30 ml SAFETY PROFESSIONAL) 600 mcg STK-MED ONCE IV ; Start 01/23/19 at 09:18; Stop 01/25/19 at 11:52; Status DC Fentanyl Citrate (Fentanyl 600 Mcg/30 ml SAFETY PROFESSIONAL) 600 mcg STK-MED ONCE IV ; Start 01/23/19 at 14:14; Stop 01/25/19 at 11:53; Status DC Fentanyl Citrate (Fentanyl 600 Mcg/30 ml SAFETY PROFESSIONAL) 600 mcg STK-MED ONCE IV ; Start 01/23/19 at 19:30; Stop 01/25/19 at 11:54; Status DC Fentanyl Citrate (Fentanyl 600 Mcg/30 ml SAFETY PROFESSIONAL) 600 mcg STK-MED ONCE IV ; Start 01/24/19 at 00:14; Stop 01/25/19 at 11:54; Status DC Fentanyl Citrate (Fentanyl 600 Mcg/30 ml SAFETY PROFESSIONAL) 600 mcg STK-MED ONCE IV ; Start 01/24/19 at 04:31; Stop 01/25/19 at 11:55; Status DC Fentanyl Citrate 55 ml @ 0 mls/hr CONT PRN PRN IV PER PROTOCOL Last administered on 01/31/19at 19:19; Start 01/28/19 at 08:30 Haloperidol Lactate (Haldol Inj) 2.5 mg PRN Q6HRS PRN IVP AGITATION Last administered on 01/30/19at 08:01; Start 01/28/19 at 08:45; Stop 01/30/19 at 11:52; Status DC Lorazepam (Ativan Inj) 2 mg PRN Q30MIN PRN IVP ANXIETY / AGITATION Last administered on 02/01/19at 01:40; Start 01/30/19 at 12:00 Lorazepam (Ativan Inj) 4 mg PRN Q30MIN PRN IVP ANXIETY / AGITATION; Start 01/30/19 at 12:00 Haloperidol Lactate (Haldol Inj) 5 mg PRN Q4HRS PRN IVP AGITATION; Start 01/30/19 at 12:00 Haloperidol Lactate (Haldol Inj) 2.5 mg PRN Q4HRS PRN IVP AGITATION Last administered on 02/01/19at 03:08; Start 01/30/19 at 12:00 Active Scripts Active Belladonna-Opium 16.2-30 Supp (Opium/Belladonna Alkaloids) 1 Each Supp.rect 1 Supp [place] Q12HR 30 Days Polyethylene Glycol 3350 17 Gm Powd.pack 17 Gm PO PRN DAILY PRN 30 Days Colace (Docusate Sodium) 100 Mg Capsule 100 Mg PO DAILY MDD 30 30 Days Reported Methadone Hcl 5 Mg Tablet 1.5 Tab PO Q8HRS Oxycodone Hcl 5 Mg Capsule 1-3 Tab PO PRN Q3HRS PRN Gabapentin 600 Mg Tablet 600 Mg PO BID Prevacid (Lansoprazole) 30 Mg Capsule.dr 30 Mg PO DAILY Cyclobenzaprine Hcl 10 Mg Tablet 10 Mg PO PRN TID PRN Phenergan (Promethazine HCl) 12.5 Mg Supp.rect 12.5 Mg RC PRN Q12HR PRN Ambien (Zolpidem Tartrate) 5 Mg Tablet 1 Tab PO QHS PRN Vitals/I & O Vital Sign - Last 24 Hours 01/31/19 01/31/19 01/31/19 01/31/19 09:02 19:19 19:20 20:00 Temp 97.8 97.8 Pulse 124 Resp 12 12 12 B/P (MAP) 116/69 (85) 98/68 (78) Pulse Ox 96 96 97 97 O2 Delivery Nasal Cannula Nasal Cannula Nasal Cannula Nasal Cannula O2 Flow Rate 3.0 3.0 3.0 Intake and Output 01/31/19 01/31/19 02/01/19 15:00 23:00 07:00 Intake Total 0 ml Output Total 100 ml Balance -100 ml Nutrition Consultation Dietary Evaluation: Comments: Offer liquids/foods only as requested by pt, discussed w/RN; will not place diet order per RN Expected Outcomes/Goals: nutrition as appropriate per goals of hospice/comfort care RD available [phone] as needed Malnutrition Findings: Food and Nutrition Intake (Sev: <50% est energy req 5days Weight Status: Obese ALYSSA MARTELL MD Feb 01, 2019 07:40
--- NOTE | 2019-02-01 09:47 | PDOC ---
SUBJECTIVE Subjective S: had 1 stool, minimal verbalizing, gets restless still O: Gen: resting in chair, sleeping, NAD resp: breathing comfortably on O2 prn A/P: 39 yo female w/ met cerv ca, terminal on hospice care cerv ca: hospice per pall care agitation: ativan prn, may need to inc dose? 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 nausea: prn's dispo: cont inpt hospice care thank you kindly, please call for ?s OBJECTIVE Vital Signs Vital Signs Date Time Temp Pulse Resp B/P (MAP) Pulse Ox O2 Delivery O2 Flow Rate FiO2 02/01/19 07:00 96.9 121 16 111/71 (84) 96 Nasal Cannula 3.0 96.9 01/31/19 20:00 12 97 Nasal Cannula 3.0 01/31/19 19:20 97.8 124 12 98/68 (78) 97 Nasal Cannula 3.0 97.8 01/31/19 19:19 12 96 Nasal Cannula 3.0 I & O Intake and Output 02/01/19 07:00 Intake Total 0 ml Output Total 100 ml Balance -100 ml Intake Oral 0 ml Output Urine Total 100 ml # Voids 3 Nutrition Consultation Dietary Evaluation: Comments: Offer liquids/foods only as requested by pt, discussed w/RN; will not place diet order per RN Expected Outcomes/Goals: nutrition as appropriate per goals of hospice/comfort care RD available [phone] as needed Malnutrition Findings: Food and Nutrition Intake (Sev: <50% est energy req 5days Weight Status: Obese POWER MEHTA MD Feb 01, 2019 09:47
[2019-02-01] MEDS: fentaNYL HIGH DOSE PCA 55 ML IV PRN (13:20)
[2019-02-01] MEDS: IV NORMAL SALINE 1000ML BAG 1,000 ML IV SCH (17:45)
[2019-02-01 19:41] VITALS: BP 110/58
--- NOTE | 2019-02-01 19:42 | NUR ---
Nephrostomy tube bilateral dressing changes performed aseptically with help of RN sister. Pt tolerated well.
[2019-02-02] MEDS: HALOPERIDOL LACTATE 5 MG/ML VIAL. IVP PRN ×4 (02:31→19:52)
[2019-02-02 07:00] VITALS: BP 132/88
--- NOTE | 2019-02-02 07:55 | PDOC ---
PROGRESS NOTES Subjective Subjective Patient somewhat restless in bed but does not appear to be in pain. Not verbalizing or taking much po now. Objective Objective Vital Signs Date Time Temp Pulse Resp B/P (MAP) Pulse Ox O2 Delivery O2 Flow Rate FiO2 02/01/19 22:59 10 Nasal Cannula 3.0 02/01/19 19:41 97.5 77 110/58 (75) 100 97.5 Intake and Output 02/02/19 07:00 Intake Total 0 ml Balance 0 ml Intake Oral 0 ml # Voids 4 Physical Exam Abdomen: No tenderness (few BS present) Heart: Regular rate (tachy) Extremities: Other (2+ pitting edema bilateral LE's) General: No acute distress Lungs: Other (few coarse BS anteriorly) Assessment Assessment Problems Medical Problems: (1) Metastasis from cervical cancer Status: Chronic Plan Plan of Care 1. Metastatic cervical cancer - slowly progressing. Continue AUTHORIZATION COORDINATOR Fentanyl and prn Haldol and Ativan for restlessness. Does not appear to need Dulcolax at this time, doubt large stool burden present with no solid food for many days now. Comment Review of Relevant I have reviewed the following items heather (where applicable) has been applied. Medications Current Medications Lorazepam (Ativan) 1 mg PRN Q4HRS PRN PO ANXIETY / AGITATION; Start 01/20/19 at 16:30; Stop 01/27/19 at 09:02; Status DC Bisacodyl (Dulcolax Supp) 10 mg PRN DAILY PRN [place] CONSTIPATION; Start 01/20/19 at 16:30 Acetaminophen (Tylenol Supp) 650 mg PRN Q4HRS PRN [place] MILD PAIN / TEMP; Start 01/20/19 at 16:30 Fentanyl Citrate 30 ml @ 0 mls/hr CONT PRN PRN IV SEE COMMENTS; Start 01/20/19 at 16:30; Stop 01/20/19 at 17:09; Status DC Naloxone HCl (Narcan) 0.4 mg PRN Q2MIN PRN IV SEE INSTRUCTIONS; Start 01/20/19 at 16:30 Sodium Chloride 1,000 ml @ 25 mls/hr Q24H IV Last administered on 02/01/19at 17:45; Start 01/20/19 at 16:27 Scopolamine (Transderm-Scop) 1 patch Q3DAYS TD Last administered on 02/01/19at 07:04; Start 01/20/19 at 18:00 Lorazepam (Ativan Inj) 2 mg PRN Q1HR PRN IVP ANXIETY / AGITATION SEVERE Last administered on 01/30/19at 10:45; Start 01/20/19 at 16:30; Stop 01/30/19 at 11:52; Status DC Lorazepam (Ativan Inj) 1 mg PRN Q1HR PRN IVP ANXIETY / AGITATION MILD-MOD Last administered on 01/27/19at 06:41; Start 01/20/19 at 16:30; Stop 01/27/19 at 09:02; Status DC Phenol (Chloraseptic) 1 spray PRN Q2HR PRN PO SORE THROAT; Start 01/20/19 at 16:30 Belladonna Alkaloids/Opium (B & O) 1 supp BID [place] ; Start 01/20/19 at 21:00; Stop 01/21/19 at 09:22; Status DC Promethazine HCl (Phenergan) 12.5 mg PRN BID PRN PO NAUSEA/VOMITING; Start 01/20/19 at 16:30 Pantoprazole Sodium (PROTONIX VIAL for IV PUSH) 40 mg DAILYAC IVP Last administered on 02/01/19at 07:03; Start 01/21/19 at 07:30 Fentanyl Citrate 30 ml @ 0 mls/hr CONT PRN PRN IV SEE COMMENTS Last administered on 01/28/19at 08:44; Start 01/20/19 at 17:15; Stop 01/28/19 at 10:00; Status DC Belladonna Alkaloids/Opium (B & O) 1 supp PRN BID PRN [place] bladder spasm; Start 01/21/19 at 09:30 Diphenhydramine HCl (Benadryl) 50 mg PRN Q8HRS PRN PO INSOMNIA; Start 01/21/19 at 17:30 Lorazepam (Ativan Inj) 2 mg DAILY@2200 IVP Last administered on 02/01/19at 07:03; Start 01/21/19 at 22:00 Sodium Chloride ([place] Saline Nasal) 1 kindra PRN Q1HR PRN NS NASAL CONGESTION; Start 01/21/19 at 18:15 Fentanyl Citrate (Fentanyl 600 Mcg/30 ml AUTHORIZATION COORDINATOR) 600 mcg STK-MED ONCE IV ; Start 01/21/19 at 15:00; Stop 01/21/19 at 18:19; Status DC Fentanyl Citrate (Fentanyl 600 Mcg/30 ml AUTHORIZATION COORDINATOR) 600 mcg STK-MED ONCE IV ; Start 01/22/19 at 12:31; Stop 01/25/19 at 11:39; Status DC Fentanyl Citrate (Fentanyl 600 Mcg/30 ml AUTHORIZATION COORDINATOR) 600 mcg STK-MED ONCE IV ; Start 01/22/19 at 17:03; Stop 01/25/19 at 11:40; Status DC Fentanyl Citrate (Fentanyl 600 Mcg/30 ml AUTHORIZATION COORDINATOR) 600 mcg STK-MED ONCE IV ; Start 01/22/19 at 21:58; Stop 01/25/19 at 11:50; Status DC Fentanyl Citrate (Fentanyl 600 Mcg/30 ml AUTHORIZATION COORDINATOR) 600 mcg STK-MED ONCE IV ; Start 01/23/19 at 03:09; Stop 01/25/19 at 11:51; Status DC Fentanyl Citrate (Fentanyl 600 Mcg/30 ml AUTHORIZATION COORDINATOR) 600 mcg STK-MED ONCE IV ; Start 01/23/19 at 09:18; Stop 01/25/19 at 11:52; Status DC Fentanyl Citrate (Fentanyl 600 Mcg/30 ml AUTHORIZATION COORDINATOR) 600 mcg STK-MED ONCE IV ; Start 01/23/19 at 14:14; Stop 01/25/19 at 11:53; Status DC Fentanyl Citrate (Fentanyl 600 Mcg/30 ml AUTHORIZATION COORDINATOR) 600 mcg STK-MED ONCE IV ; Start 01/23/19 at 19:30; Stop 01/25/19 at 11:54; Status DC Fentanyl Citrate (Fentanyl 600 Mcg/30 ml AUTHORIZATION COORDINATOR) 600 mcg STK-MED ONCE IV ; Start 01/24/19 at 00:14; Stop 01/25/19 at 11:54; Status DC Fentanyl Citrate (Fentanyl 600 Mcg/30 ml AUTHORIZATION COORDINATOR) 600 mcg STK-MED ONCE IV ; Start 01/24/19 at 04:31; Stop 01/25/19 at 11:55; Status DC Fentanyl Citrate 55 ml @ 0 mls/hr CONT PRN PRN IV PER PROTOCOL Last administere d on 02/01/19at 13:20; Start 01/28/19 at 08:30 Haloperidol Lactate (Haldol Inj) 2.5 mg PRN Q6HRS PRN IVP AGITATION Last administered on 01/30/19at 08:01; Start 01/28/19 at 08:45; Stop 01/30/19 at 11:52; Status DC Lorazepam (Ativan Inj) 2 mg PRN Q30MIN PRN IVP ANXIETY / AGITATION Last administered on 02/02/19at 06:10; Start 01/30/19 at 12:00 Lorazepam (Ativan Inj) 4 mg PRN Q30MIN PRN IVP ANXIETY / AGITATION Last administered on 02/01/19at 18:17; Start 01/30/19 at 12:00 Haloperidol Lactate (Haldol Inj) 5 mg PRN Q4HRS PRN IVP AGITATION; Start 01/30/19 at 12:00 Haloperidol Lactate (Haldol Inj) 2.5 mg PRN Q4HRS PRN IVP AGITATION Last a dministered on 02/02/19at 02:31; Start 01/30/19 at 12:00 Fentanyl Citrate (Fentanyl 50 Mcg/ ml AUTHORIZATION COORDINATOR Syringe) 2,750 mcg STK-MED ONCE IV ; Start 01/29/19 at 19:14; Stop 02/01/19 at 08:43; Status DC Fentanyl Citrate (Fentanyl 600 Mcg/30 ml AUTHORIZATION COORDINATOR) 600 mcg STK-MED ONCE IV ; Start 01/26/19 at 06:22; Stop 02/01/19 at 15:43; Status DC Active Scripts Active Belladonna-Opium 16.2-30 Supp (Opium/Belladonna Alkaloids) 1 Each Supp.rect 1 Supp [place] Q12HR 30 Days Polyethylene Glycol 3350 17 Gm Powd.pack 17 Gm PO PRN DAILY PRN 30 Days Colace (Docusate Sodium) 100 Mg Capsule 100 Mg PO DAILY MDD 30 30 Days Reported Methadone Hcl 5 Mg Tablet 1.5 Tab PO Q8HRS Oxycodone Hcl 5 Mg Capsule 1-3 Tab PO PRN Q3HRS PRN Gabapentin 600 Mg Tablet 600 Mg PO BID Prevacid (Lansoprazole) 30 Mg Capsule.dr 30 Mg PO DAILY Cyclobenzaprine Hcl 10 Mg Tablet 10 Mg PO PRN TID PRN Phenergan (Promethazine HCl) 12.5 Mg Supp.rect 12.5 Mg RC PRN Q12HR PRN Ambien (Zolpidem Tartrate) 5 Mg Tablet 1 Tab PO QHS PRN Vitals/I & O Vital Sign - Last 24 Hours 02/01/19 02/01/19 02/01/19 02/01/19 13:20 14:02 19:41 22:59 Temp 97.5 97.5 Pulse 77 Resp 14 10 B/P (MAP) 110/58 (75) Pulse Ox 96 96 100 O2 Delivery Nasal Cannula Nasal Cannula O2 Flow Rate 3.0 3.0 3.0 3.0 Intake and Output 02/01/19 02/01/19 02/02/19 15:00 23:00 07:00 Intake Total 0 ml Balance 0 ml Nutrition Consultation Dietary Evaluation: Comments: Offer liquids/foods only as requested by pt, discussed w/RN; will not place diet order per RN Expected Outcomes/Goals: nutrition as appropriate per goals of hospice/comfort care RD available [phone] as needed Malnutrition Findings: Food and Nutrition Intake (Sev: <50% est energy req 5days Weight Status: Obese ALYSSA MARTELL MD Feb 02, 2019 07:55
[2019-02-02] MEDS: PANTOPRAZOLE IV PUSH 40 MG VIAL. IVP SCH (08:07)
[2019-02-02] MEDS: fentaNYL HIGH DOSE PCA 55 ML IV PRN (08:52)
--- NOTE | 2019-02-02 10:11 | PDOC ---
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 dispo: cont inpt hospice care thank you kindly, please call for ?s OBJECTIVE Vital Signs Vital Signs Date Time Temp Pulse Resp B/P (MAP) Pulse Ox O2 Delivery O2 Flow Rate FiO2 02/02/19 09:28 100 3.0 02/02/19 08:52 100 3.0 02/02/19 07:00 97.5 104 16 132/88 (103) Nasal Cannula 3.0 97.5 02/01/19 22:59 10 Nasal Cannula 3.0 02/01/19 19:41 97.5 77 14 110/58 (75) 100 Nasal Cannula 3.0 97.5 02/01/19 14:02 96 3.0 02/01/19 13:20 96 3.0 I & O Intake and Output 02/02/19 07:00 Intake Total 0 ml Balance 0 ml Intake Oral 0 ml # Voids 4 Nutrition Consultation Dietary Evaluation: Comments: Offer liquids/foods only as requested by pt, discussed w/RN; will not place diet order per RN Expected Outcomes/Goals: nutrition as appropriate per goals of hospice/comfort care RD available [id number] as needed Malnutrition Findings: Food and Nutrition Intake (Sev: <50% est energy req 5days Weight Status: Obese POWER MEHTA MD Feb 02, 2019 10:11
[2019-02-02] MEDS ORDERED: GLYCOPYRROLATE 1 MG/5 ML VIAL. IV PRN ×2 (17:45→20:15)
[2019-02-02] MEDS ORDERED: ATROPINE 1% OPHTH SOLUTION 5ML BOTTLE. SL PRN (19:45)
[2019-02-02 19:55] VITALS: BP 99/54
--- NOTE | 2019-02-02 23:00 | NUR ---
Patient 02/02/19 [id number]. Family at bedside. Spoke with Vandana at [facility]. Also spoke with Modesta with [facility]. Patient was given Fentanyl boluses q 30 minutes for comfort. [facility] nurse at bedside upon patient passing. Dr Lopez, log pond worker for Dr Bowman, was notified of patient passing.
--- NOTE | 2019-02-03 10:49 | DS ---
DATE OF DISCHARGE: 02/02/2019 SUMMARY CHIEF COMPLAINT: Metastatic cervical cancer. HISTORY OF PRESENT ILLNESS: The patient is a 39-year-old female with metastatic cervical cancer. She was admitted to [facility] in December for treatment of a small-bowel obstruction due to her metastatic disease. Her condition slowly worsened and she was made comfort care. She was technically discharged from the hospital and readmitted on 01/21/2019 to inpatient hospice care with [facility]. The patient received fentanyl via [facility] and also Ativan and Haldol for treatment of her symptoms. The patient has many supportive family members, some of whom were always present with her during her hospital stay. Comfort care was continued and she slowly declined, passing away peacefully on 02/02/2019. FINAL DIAGNOSIS: Metastatic cervical cancer. ALYSSA MARTELL MD DR: HARJIT/kristopher JOB#: [id number] / [id number] BENIGNO
== END 2019-02-02 22:27 | disposition expired | DRG 755 ==
LOC: 2 SOUTH 16:02
PROVIDERS: ADMIT Family Medicine; ATTEND Family Medicine
DX: C53.9 Malignant neoplasm of cervix uteri, unspecified (principal); K56.609 Unspecified intestinal obstruction, unspecified as to partial versus complete obstruction; C79.9 Secondary malignant neoplasm of unspecified site; N18.3 Chronic kidney disease, stage 3 (moderate); N32.89 Other specified disorders of bladder; Z51.5 Encounter for palliative care; Z66 Do not resuscitate; Z85.41 Personal history of malignant neoplasm of cervix uteri; Z88.8 Allergy status to other drugs, medicaments and biological substances
CPT/HCPCS: C9113; J1630; J2060; J3010; J3490; J7030; G0378